=== PATIENT | female | born 1940 | race Caucasian/White ===

== ENCOUNTER 2019-07-12 05:31 | Emergency (ER) | payer MEDICARE, SELFPAY ==
[2019-07-12] VITALS (19 sets, daily range): BP systolic 154–190; BP diastolic 43–118; PULSE 100–113; RESP 13–25; TEMP 36.9; O2SAT 91–100
--- NOTE | ~2019-07-12 | XR_ITS ---
XR chest 1V portable DATE: 07/12/2019 06:54 INDICATION: Cough, shortness of breath TECHNIQUE: Portable upright AP chest on 07/12/2019 at 0648 hours COMPARISON: 10/28/2018 portable AP chest FINDINGS: Normal heart size. Aortic calcification and minimal unfolding. No hilar or mediastinal enla rgement. No pulmonary infiltrate or consolidation is evident. No pleural effusion, pulmonary vascular congesti on or pneumothorax. Severe osteoarthritic change at both glenohumeral joints. Diffuse osteopenia. Posterior lumbar spinal surgical fusion. IMPRESSION: No active cardiac pulmonary disease or significant change since 10/28/2018 Reviewed, dictated and finalized at location A. IMPRESSION: No active cardiac pulmonary disease or significant change since 10/01
--- NOTE | 2019-07-12 05:33 | ECG_ITS ---
Measurements Intervals [place] Rate: 102 P: 78 NM: 181 QRS: 35 QRSD: 90 T: 56 QT: 307 QTc: 401 Interpretive Statements SINUS TACHYCARDIA NONSPECIFIC T-WAVE ABNORMALITY- INF/LAT LEADS BASELINE ARTIFACT- I, II, AVR, V1 BORDERLINE ECG Electronically Signed On 07-12-2019 7:04:06 CDT by Moiz Melton D.O.
--- NOTE | 2019-07-12 05:34 | ED.GENADULT ---
HPI - General Adult General Chief complaint: Shortness of Breath/Dyspnea <Lucy Wilhelm MD - Last Filed: 07/12/19 19:21> Stated complaint: sob <Lucy Wilhelm MD - Last Filed: 07/12/19 19:21> Time Seen by Provider: 07/12/19 05:32 <Lucy Wilhelm MD - Last Filed: 07/12/19 19:21> Source: patient and EMS <Lucy Wilhelm MD - Last Filed: 07/12/19 19:21> Mode of arrival: EMS <Lucy Wilhelm MD - Last Filed: 07/12/19 19:21> Limitations: clinical condition <Lucy Wilhelm MD - Last Filed: 07/12/19 19:21> History of Present Illness HPI narrative: Patient presented to the emergency department via EMS for evaluation of shortness of breath. Per EMS report, they were called to the patient's home residence by her for increasing shortness of breath over the course of the evening/overnight. At the time of arrival, patient is in respiratory distress, oxygen saturation 71% on her normal 2 L nasal cannula, tachypneic, tripod position. Patient was placed on BiPAP in route, IV access could not be obtained, thus patient was given intramuscular epinephrine due to her respiratory distress. Patient at that point in time did report chest pain to 1 of the paramedics. At the time of arrival to our facility, the patient is awake, alert and oriented. She is on the BiPAP machine, she denies any chest pain, reports shortness of breath. Denies fever or chills. History is limited due to acuity of condition/ severe respiratory distress. <Lucy Wilhelm MD - Last Filed: 07/12/19 19:21> Related Data Home medications: Home Medications Medication Instructions Recorded Confirmed albuterol sulfate 2.5 mg/0.5 mL 2.5 mg INHALATION Q20M 03/16/19 solution for nebulization albuterol sulfate 90 mcg/actuation 1 inhalation INHALATION Q6H gm 03/16/19 aerosol inhaler celecoxib 100 mg capsule 100 mg PO DAILY 03/16/19 cholecalciferol (vitamin D3) 125 5,000 unit PO DAILY 03/16/19 mcg (5,000 unit) tablet docusate sodium 100 mg capsule 100 mg PO BID 03/16/19 famotidine 10 mg tablet 10 mg PO DAILY 03/16/19 fexofenadine 60 mg-pseudoephedrine 1 tablet PO Q12H PRN 03/16/19 ER 120 mg tablet,ext.release,12 hr loperamide 2 mg capsule 2 mg PO Q4H PRN 03/16/19 oxycodone-acetaminophen 10 mg-325 tablet PO QID PRN tablet 03/16/19 mg tablet triamterene 37.5 1 cap PO DAILY 03/16/19 mg-hydrochlorothiazide 25 mg capsule vit C 250 mg-E 200 unit-zinc 40 1 tablet PO BID 03/16/19 mg-copper 1 ww-enzpvl-myjhto capsule qsnqrbqmeq-izgwmhbnjsehu-pgkfwbnd 1 tablet PO Q4-6H PRN 05/22/19 50 mg-325 mg-40 mg tablet Spiriva with HandiHaler 07/12/19 bismuth subsalicylate 07/12/19 [Pepto-Bismol] budesonide-formoterol [Symbicort] 2 puff INHALATION Q12H 07/12/19 celecoxib 100 mg PO BID 07/12/19 fexofenadine-pseudoephedrine tablet PO 07/12/19 [Marzena-D 12 Hour] magnesium hydroxide [Milk of 15 ml PO BID 07/12/19 Magnesia] sodium chloride [[place] Nasal] INTRANASAL 07/12/19 vit C,P-Sg-qcddz-lutein-zeaxan 1 tablet PO BID 07/12/19 [PreserVision AREDS-2] <Lucy Wilhelm MD - Last Filed: 07/12/19 19:21> Allergies/adverse reactions: Allergies Allergy/AdvReac Type Severity Reaction Status Date / Time Sulfa (Sulfonamide Allergy Unknown Unknown Verified 07/12/19 06:18 Antibiotics) <Lucy Wilhelm MD - Last Filed: 07/12/19 19:21> Review of Systems Review of Systems: Narrative: CONSTITUTIONAL: Denies fever, chills, or sweats. CARDIOVASCULAR: Denies chest pain currently, palpitations, or edema. RESPIRATORY: Reports cough and shortness of breath GASTROINTESTINAL: Denies abdominal pain, nausea, vomiting, or diarrhea. SKIN: Denies rash or itching. MUSCULOSKELETAL: Denies back pain, joint pain, or myalgia. <Lucy Wilhelm MD - Last Filed: 07/12/19 19:21> [facility] Past Medical History Medical History: Medical History (Updated 07/12/19 @ 05:44 by Vandana
[2019-07-12 05:45] LABS: Basophils Absolute Auto 0.1 K/mm3 (0.0-0.1); Basophils Percent Auto 0.7 % (0.2-1.2); Eosinophils Absolute Auto 0.5 K/mm3 (0-0.3); Hematocrit 37.7 % (37.0-47.0); Hemoglobin 11.6 g/dL (12.0-15.0); Immature Granulocyte Absolute 0.03 K/mm3 (0.00-0.031); Immature Granulocyte Percent A 0.4 % (0-0.5); Lymphocytes Absolute Auto 1.58 K/mm3 (0.9-3.2); Lymphocytes Percent Auto 22.3 % (18.3-44.2); Mean Corpuscular HGB Conc 30.8 g/dl (32-36); Mean Corpuscular Hemoglobin 27.8 pg (26-34); Mean Corpuscular Volume 90.2 fl (80-100); Mean Platelet Volume 10.2 fl (7.4-10.4); Monocytes Absolute Auto 0.9 K/mm3 (0.1-0.6); Monocytes Percent Auto 12.5 % (2.6-8.5); Neutrophils Absolute Auto 4.1 K/mm3 (1.3-6.7); Neutrophils Percent Auto 57.1 % (45.5-73.1); Platelet Count Result 211 k/mm3 (150-375); Red Blood Count 4.18 M/mm3 (4.2-5.4); Red Cell Distribution Width 13.2 % (11.5-14.5); White Blood Count 7.1 K/mm3 (4.5-10.0)
[2019-07-12] MEDS: SODIUM CHLORIDE 0.9% IV 500 ML 999 ML IV CONT (05:46)
[2019-07-12] MEDS: methylPREDNISolone SOD SUCC 125 MG VIAL IV PUSH (05:47)
[2019-07-12] MEDS: IPRATROPIUM BR 0.02% INH SOLN 0.5 MG/2.5 ML VIAL 2 MG INHALATION (05:58)
[2019-07-12] MEDS: ALBUTEROL SULFATE NEB 2.5 MG/0.5 ML INH 20 MG INHALATION (05:58)
--- NOTE | 2019-07-12 06:05 | PC.NURSE ---
Patient taken off BiPAP at this time and placed on nebulizer treatment. Patient tolerating treatment well. 100% O2 saturations.
[2019-07-12] MEDS: MAGNESIUM SULF 2 GM/WATER 50ML 2 GM/50 ML BAG IVPB (06:06)
[2019-07-12 06:09] LABS: Prothrombin Time 12.5 Seconds (11.1-14.7)
[2019-07-12 06:10] LABS: Partial Thromboplastin Time 28.8 SECONDS (22.3-36.8)
[2019-07-12 06:15] LABS: Blood Urea Nitrogen 22 mg/dL (7-17); Carbon Dioxide 35 mmol/L (22-30); Chloride 94 mmol/L (98-107); Estimated CRCL calculation 66 ml/min; Estimated Glomerular Filt Rate > 60; Glucose 168 mg/dL (65-105); Potassium 3.8 mmol/L (3.4-5.0); Sodium 133 mmol/L (137-145)
[2019-07-12 06:27] LABS: NT Pro B Type Natriuretic Pept 375 PG/ML (5-100); Troponin I < 0.012 ng/mL (0.000-0.034)
--- NOTE | 2019-07-12 07:03 | PC.NURSE ---
Patient on baseline 3L O2 via nasal cannula at this time. O2 saturations 96%.
--- NOTE | 2019-07-12 07:12 | PC.NURSE ---
Care assumed at this time, report given by BECKY No.
[2019-07-12 08:55] LABS: Alveolar/Arterial O2 Gradient 102.3 mmHg; Base Excess ABG 3.7 mEq/l (+/-2.0); Fractional Inspired Oxygen 34 %; Oxygen Content ABG 18.4 %vol (16.0-22.0); Oxygen Saturation ABG 95.5 % (95.0-100.0); Oxyhemoglobin 94.5 % THb (90.0-100.0); PCO2 ABG 51.7 mmHg (35.0-45.0); PO2 ABG 79.9 mmHg (80.0-100.0); PO2 FiO2 Ratio Arterial Blood 2.35 %; Total Hemoglobin 13.8 g/dL (12.0-18.0); pH ABG 7.381 (7.350-7.450)
[2019-07-12 08:56] LABS: Device NASAL CANNULA; Liters per Minute 3.5 LPM; Modified Allen's Test Pass; Site Drawn RIGHT RADIAL
--- NOTE | 2019-07-12 09:51 | PC.NURSE ---
Patient taken to the bathroom via wheelchair by this RN and tech. Pt remained on 3L NC O2, saturations maintained at 91%. Pt states that she feels very weak and is tired. This RN told patient that EDP discharged patient, patient states that she cannot go home, she is too tired and is working too hard to breath. EDP and charge was notified.
== END 2019-07-12 11:01 | disposition home or self-care (01) ==
PROVIDERS: Emergency Medicine; Emergency Provider Emergency Medicine; PCP Internal Medicine
DX: J44.1 Chronic obstructive pulmonary disease with (acute) exacerbation (principal); R73.03 Prediabetes; Z99.81 Dependence on supplemental oxygen; I10 Essential (primary) hypertension; Z87.891 Personal history of nicotine dependence; E55.9 Vitamin D deficiency, unspecified; R00.0 Tachycardia, unspecified; R94.31 Abnormal electrocardiogram [ECG] [EKG]
CPT/HCPCS: 36415; 36600; 71045; 80048; 82805; 83880; 84484; 85025; 85610; 85730; 87804; 93005; 94002; 96365; 96375; 99284; J2930; J3475; J7040

== ENCOUNTER 2019-08-08 08:42 | Inpatient (IN) | payer MEDICARE, SELFPAY ==
[2019-08-08] VITALS (15 sets, daily range): BP systolic 146–180; BP diastolic 83–92; PULSE 96–109; RESP 16–24; TEMP 36.6–36.8; O2SAT 97–100; BMI 39.7
--- NOTE | ~2019-08-08 | XR_ITS ---
EXAMINATION: XR chest 1V portable EXAM DATE: 08/08/2019 09:37 INDICATION: Shortness of breath. TECHNIQUE: Portable AP frontal chest x-ray was obtained. Comparison is made to prior examination from 07/12/2019. FINDINGS: The lungs are clear. There are no pleural effusions. Cardiac silhouette is prominent but magnified on this AP technique. There is no pneumothorax suspected. There is moderate bilateral gle nohumeral primary osteoarthritis. Patient receiving breathing treatment. There is lumbar fusion hardw are. There is no significant interval change. IMPRESSION: No acute cardiopulmonary findings. Reviewed, dictated and finalized at location B.
--- NOTE | ~2019-08-08 | US_ITS ---
EXAMINATION: US retroperitoneal duplex ltd DATE: 08/09/2019 10:03 INDICATION: Abdominal bruit. TECHNIQUE: Multiple grayscale, color Doppler, and pulsed Doppler images of the kidneys and renal obey river were obtained. COMPARISON: Chest CT 08/19/2017 FINDINGS: The aorta peak systolic velocity is 119 cm/s. The right renal artery peak systolic velocity is 48 cm/ s in the proximal segment, 36 cm/s in the mid segment, and 54 cm/s in the distal segment. The left re nal artery peak systolic velocity is 56 cm/s in the proximal segment, 63 cm/s in the mid segment, and 71 cm/s in the distal segment. IMPRESSION: 1. No Doppler evidence of renal artery stenosis. Note that the chest CT from 08/19/2017 similarly dem onstrates no significant renal artery stenosis. Reviewed, dictated and finalized at location A. IMPRESSION: 1. No Doppler evidence of renal artery stenosis. Note that the chest CT from similarly demonstrates no significant renal artery stenosis.
--- NOTE | 2019-08-08 08:32 | ED.SOB ---
HPI - SOB/Dyspnea General Chief Complaint: Shortness of Breath/Dyspnea Stated Complaint: sob Time Seen by Provider: 08/08/19 08:32 Source: patient, EMS and RN notes reviewed Mode of arrival: EMS Limitations: no limitations History of Present Illness HPI Narrative: Pt is a 79 y/o female with a Hx of COPD, who presents to the ED via EMS with c/o SOB starting last night. She notes that she is currently on 3 L of home O2, but states that she has been on 4 L for the past several days. Pt notes that she started feeling more SOB last night. EMS states that her O2 saturation was in the 80's upon their arrival this morning. They note that they placed the pt on a CPAP and administered a nebulizer treatment while in route to the ED. EMS reports that the pt was wheezing while in route to the ED. Pt currently denies any cough, fever, or chills. She is not currently taking any blood thinners. MD elicited complaint: shortness of breath Pertinent past history: COPD Onset (ago): day(s) (1) Known history of: COPD Associated symptoms: wheezing (per EMS) Treatment prior to arrival: oxygen Related Data Home Medications Medication Instructions Recorded Confirmed albuterol sulfate 2.5 mg/0.5 mL 2.5 mg INHALATION Q20M 03/16/19 solution for nebulization celecoxib 100 mg capsule 100 mg PO DAILY 03/16/19 cholecalciferol (vitamin D3) 125 5,000 unit PO DAILY 03/16/19 mcg (5,000 unit) tablet docusate sodium 100 mg capsule 100 mg PO BID 03/16/19 famotidine 10 mg tablet 10 mg PO DAILY 03/16/19 fexofenadine 60 mg-pseudoephedrine 1 tablet PO Q12H PRN 03/16/19 ER 120 mg tablet,ext.release,12 hr loperamide 2 mg capsule 2 mg PO Q4H PRN 03/16/19 oxycodone-acetaminophen 10 mg-325 tablet PO QID PRN tablet 03/16/19 mg tablet triamterene 37.5 1 cap PO DAILY 03/16/19 mg-hydrochlorothiazide 25 mg capsule vit C 250 mg-E 200 unit-zinc 40 1 tablet PO BID 03/16/19 mg-copper 1 fk-ulusxm-iihvjz capsule bcujdpqrhg-epgmifklgqqeh-jzkzlbyw 1 tablet PO Q4-6H PRN 05/22/19 50 mg-325 mg-40 mg tablet Spiriva with HandiHaler 07/12/19 bismuth subsalicylate 07/12/19 [Pepto-Bismol] budesonide-formoterol [Symbicort] 2 puff INHALATION Q12H 07/12/19 celecoxib 100 mg PO BID 07/12/19 fexofenadine-pseudoephedrine tablet PO 07/12/19 [Marzena-D 12 Hour] magnesium hydroxide [Milk of 15 ml PO BID 07/12/19 Magnesia] sodium chloride [[place] Nasal] INTRANASAL 07/12/19 vit C,R-Ad-rbkvl-lutein-zeaxan 1 tablet PO BID 07/12/19 [PreserVision AREDS-2] Allergies Allergy/AdvReac Type Severity Reaction Status Date / Time Sulfa (Sulfonamide Allergy Unknown Unknown Verified 07/12/19 06:18 Antibiotics) Review of Systems Review of Systems: All systems reviewed & are unremarkable except as noted in HPI and below Constitutional: Constitutional: Denies chills and Denies fever(s) Respiratory: Respiratory: Denies cough, Reports dyspnea and Reports wheezing (per EMS) PMFSH Past Medical History Medical History Arthritis Back pain Bilateral lower extremity edema Borderline diabetic Cataracts, bilateral Chronic hypoxemic respiratory failure Chronic obstructive pulmonary disease, unspecified Chronic pain of both shoulders Chronic pain of left knee Dependence on supplemental oxygen Essential (primary) hypertension GERD (gastroesophageal reflux disease) History of angina History of tobacco abuse Insomnia Nonintractable headache Pain in right shoulder Sleep apnea SOB (shortness of breath) Thyroid nodule Ulcerative colitis Venous stasis dermatitis of both lower extremities Vitamin D deficiency Surgical History Surgical History History of right knee surgery Hx of arthroscopy of left knee Hx of spinal surgery Hx of tonsillectomy Social History Social History Smoking status: Former smoker Tobacc
--- NOTE | 2019-08-08 08:42 | ECG_ITS ---
Measurements Intervals [place] Rate: 101 P: 96 [place]: 171 QRS: 36 QRSD: 89 T: 51 QT: 315 QTc: 410 Interpretive Statements SINUS TACHYCARDIA BORDERLINE T WAVE ABNORMALITY- LATERAL LEADS BASELINE ARTIFACT- I, II, III, AVR, AVL, AVF, V4-V6 BORDERLINE ECG Electronically Signed On 08-08-2019 9:00:00 CDT by Moiz Melton D.O.
[2019-08-08] MEDS: methylPREDNISolone SOD SUCC 125 MG VIAL IV PUSH (08:55)
[2019-08-08 09:05] LABS: Basophils Absolute Auto 0.1 K/mm3 (0.0-0.1); Basophils Percent Auto 0.9 % (0.2-1.2); Eosinophils Absolute Auto 0.5 K/mm3 (0-0.3); Eosinophils Percent Auto 8.6 % (0-4.4); Hematocrit 36.4 % (37.0-47.0); Immature Granulocyte Absolute 0.01 K/mm3 (0.00-0.031); Immature Granulocyte Percent A 0.2 % (0-0.5); Lymphocytes Absolute Auto 0.81 K/mm3 (0.9-3.2); Lymphocytes Percent Auto 14.5 % (18.3-44.2); Mean Corpuscular HGB Conc 30.2 g/dl (32-36); Mean Corpuscular Hemoglobin 27.4 pg (26-34); Mean Corpuscular Volume 90.8 fl (80-100); Mean Platelet Volume 10.1 fl (7.4-10.4); Monocytes Absolute Auto 0.7 K/mm3 (0.1-0.6); Monocytes Percent Auto 12.3 % (2.6-8.5); Neutrophils Absolute Auto 3.6 K/mm3 (1.3-6.7); Neutrophils Percent Auto 63.5 % (45.5-73.1); Platelet Count Result 221 k/mm3 (150-375); Red Blood Count 4.01 M/mm3 (4.2-5.4); Red Cell Distribution Width 13.4 % (11.5-14.5); White Blood Count 5.6 K/mm3 (4.5-10.0)
[2019-08-08 09:05] LABS: Alveolar/Arterial O2 Gradient 101.2 mmHg; Base Excess ABG 7.3 mEq/l (+/-2.0); Fractional Inspired Oxygen 36 %; HCO3 ABG 34.8 mEq/l (22.0-26.0); Oxygen Content ABG 15.9 %vol (16.0-22.0); Oxyhemoglobin 93.8 % THb (90.0-100.0); PO2 ABG 80.7 mmHg (80.0-100.0); PO2 FiO2 Ratio Arterial Blood 2.24 %
[2019-08-08 09:08] LABS: Device HIGH FLOW NASAL CANN; Modified Allen's Test Pass; PCO2 ABG 64.5 mmHg (35.0-45.0); Site Drawn LEFT RADIAL
[2019-08-08 09:11] LABS: Prothrombin Time 12.5 Seconds (11.1-14.7)
[2019-08-08 09:12] LABS: Partial Thromboplastin Time 26.9 SECONDS (22.3-36.8)
[2019-08-08 09:13] LABS: Alanine Aminotransferase 13 U/L (4-35); Albumin Level 3.9 g/dL (3.5-5.1); Alkaline Phosphatase 79 U/L (38-126); Aspartate Amino Transferase 23 U/L (14-36); Bilirubin,Total 0.3 mg/dL (0.2-1.3); Blood Urea Nitrogen 21 mg/dL (7-17); Carbon Dioxide 36 mmol/L (22-30); Chloride 94 mmol/L (98-107); Estimated CRCL calculation 69 ml/min; Estimated Glomerular Filt Rate > 60; Glucose 135 mg/dL (65-105); Potassium 4.1 mmol/L (3.4-5.0); Sodium 133 mmol/L (137-145)
[2019-08-08] MEDS: IPRATROPIUM BR 0.02% INH SOLN 0.5 MG/2.5 ML VIAL INHALATION ×3 (09:20→19:36)
[2019-08-08] MEDS: ALBUTEROL SULFATE NEB 2.5 MG/0.5 ML INH 5 MG INHALATION ×3 (09:21→19:35)
[2019-08-08 09:53] LABS: NT Pro B Type Natriuretic Pept 410 PG/ML (5-100)
[2019-08-08 10:37] LABS: Troponin I < 0.012 ng/mL (0.000-0.034)
--- NOTE | 2019-08-08 11:45 | ADMGEN ---
This patient, Belinda Black, was admitted to Medical Room 347-01. Patient/family oriented to hospital policies and general routines including ID bracelet, bed and alarms, visiting hours, pain management, procedures, bathroom and other care routines, personal items, smoking policy, room service/diet, and visiting hours. Valuables list has been completed. Information on how to activate the Rapid Response Team has been discussed. Patient/Family are encouraged to report perceived risks to care and to ask questions if they do not understand what they are told or what they should do.
[2019-08-08] MEDS: methylPREDNISolone SOD SUCC 125 MG VIAL 60 MG IV PUSH ×2 (15:30→20:13)
[2019-08-08] MEDS: ACETAMINOPHEN 325 MG TABLET 650 MG PO (17:12)
[2019-08-08 18:01] LABS: Alveolar/Arterial O2 Gradient 102.9 mmHg; Base Excess ABG 6.3 mEq/l (+/-2.0); Carboxyhemoglobin 0.3 % THb (0-2.0); Fractional Inspired Oxygen 36 %; HCO3 ABG 32.9 mEq/l (22.0-26.0); Methemoglobin ABG 0.5 %THb (0-1.5); Oxygen Content ABG 17.6 %vol (16.0-22.0); Oxygen Saturation ABG 97.2 % (95.0-100.0); Oxyhemoglobin 96.4 % THb (90.0-100.0); PCO2 ABG 56.1 mmHg (35.0-45.0); PO2 ABG 98.2 mmHg (80.0-100.0); PO2 FiO2 Ratio Arterial Blood 2.73 %; Reduced Hemoglobin 2.8 %THb (0-5.0); Total Hemoglobin 12.9 g/dL (12.0-18.0); pH ABG 7.386 (7.350-7.450)
[2019-08-08 18:02] LABS: Device NASAL CANNULA; Modified Allen's Test Pass; Site Drawn RIGHT RADIAL
[2019-08-08] MEDS: CELECOXIB 100 MG CAPSULE PO (18:19)
[2019-08-08] MEDS: DICYCLOMINE HCL 10 MG CAPSULE 20 MG PO (18:22)
[2019-08-08] MEDS: SALINE 0.65% NAS SOLN 44 ML BTL 2 SPRAY NASAL (21:17)
--- NOTE | 2019-08-08 22:00 | PM.IMHP ---
H&P: HPI History of Present Illness Chief complaint: Shortness of breath Narrative: Date and time of patient contact: 08/08/2019 at 10:00 p.m. Belinda Black is a 79 year old female with a past medical history of diastolic dysfunction, chronic lower extremity edema, obstructive sleep apnea, chronic pain and COPD who presented to the ER with shortness of breath. She told the ER that the shortness of breath started last night. However she tells me that she has had progressive shortness of breath for the last 3 months. The patient's oxygen saturations were in the 80s on EMS arrival to her home. She was placed on CPAP in given nebulizer treatment in route. Patient was evidently having audible wheezes and in route to the hospital. She her home oxygen it isn't working at times. She reports her shortness of breath is worse with activity. Her has been trying to get her to sleep in a chair so that she could be upright but she does not. She she does have a history of obstructive sleep apnea but admits that she has not used her CPAP in at least a year. She regularly falls asleep multiple times a day. But this is been happening more so recently. She also has noticed episodes of confusion over the last 3 days. She reports that she will become so short of breath that she will have to scream out because she can't breathe. She has a chronic mild cough that has not changed from baseline. She denies any fevers or chills. She complained for several minutes when her arrived to her room about how hot it was. She denies any recent ill contacts or travel. She has not been having any nausea or vomiting. She has been having her usual regular stools. She was told sometime back that her bladder has fallen. She admits to about 3 weeks of increased urinary urgency however when she goes to use the restroom she will sometimes only dribble urine. He had other times the patient will empty her bladder and then when she stands up and wipes she will then sit back down in be able to empty more urine out of her bladder. She denies any hematuria or dysuria. She denies any sore throat, postnasal drip kind headache, or visual changes. She denies any increased lower extremity swelling. Review of Systems Review of Systems: Narrative: 12 systems were reviewed with pertinent positives and negatives per HPI. Except as documented in the HPI, all other systems were reviewed and are negative. [facility] Past Medical History Medical History (Updated 08/08/19 @ 23:06 by Airam Crow DO) Aortic stenosis Mild on echocardiogram from October 2018 Borderline diabetic Cataracts, bilateral Maturing cataracts bilaterally Chronic diastolic (congestive) heart failure Echocardiogram October 2018 demonstrated normal left ventricular systolic function with EF of 65-70% grade 1 diastolic dysfunction mild aortic stenosis with a normal RVSP of 34 Chronic pain syndrome With chronic back, bilateral shoulder, and left knee pain Chronic respiratory failure with hypoxia and hypercapnia COPD with emphysema Dependence on supplemental oxygen Essential (primary) hypertension Fractured coccyx GERD (gastroesophageal reflux disease) History of angina History of tobacco abuse Insomnia Liver mass 21 mm likely benign noted on imaging for 2018 Obstructive sleep apnea on CPAP Non compliant Thyroid nodule On CT scan from July 2017 Ulcerative colitis Venous stasis dermatitis of both lower extremities Vitamin D deficiency Surgical History Surgical History (Updated 08/08/19 @ 20:50 by Airam Crow DO) History of total right knee replacement January 2012 History of ventral hernia repair With abdominoplasty Hx of arthroscopy of left knee 2000 Hx of spinal surgery Lumbar surgery 2001 Hx of tonsillectomy Family History Family History (Updated 08/08/19 @ 20:51 by Airam Crow DO) Mother Diabetes mellitus Father COPD (chronic obstructive pulmonary disease) [place]
[2019-08-08] MEDS: TRIAMTERENE 37.5 MG/HCTZ 25 MG (MAXZIDE) TABLET 1 TAB PO (23:07)
[2019-08-08 23:35] LABS: Glucose Point of Care 176 (65-105)
[2019-08-09] VITALS (12 sets, daily range): BP systolic 160–174; BP diastolic 80–97; PULSE 100–120; RESP 16–20; TEMP 36.4–37.2; O2SAT 92–99
[2019-08-09 00:28] LABS: Add Urine Microscopic? YES; Appearance Urine Clear (Clear); Bacteria Urine Trace /hpf; Bilirubin Urine Negative (Negative); Blood Urine Negative (Negative); Color Urine Colorless (Yellow); Glucose Urine UA Negative (Negative); Ketones Urine Negative (Negative); Leukocyte Esterase Ur Negative LEU/UL (Negative); Nitrate Urine Negative (Negative); Protein Urine 1+ mg/dL (Negative); Squamous Epithelial Cell Urine Rare /hpf (Few); Urobilinogen Urine Negative mg/dL (<2.0); WBC Urine 0-3 /hpf
[2019-08-09] MEDS: ALBUTEROL SULFATE NEB 2.5 MG/0.5 ML INH 5 MG INHALATION ×4 (01:27→21:05)
[2019-08-09] MEDS: IPRATROPIUM BR 0.02% INH SOLN 0.5 MG/2.5 ML VIAL INHALATION ×4 (01:27→21:05)
[2019-08-09] MEDS: methylPREDNISolone SOD SUCC 125 MG VIAL 60 MG IV PUSH ×3 (05:05→21:30)
[2019-08-09 07:44] LABS: Glucose Point of Care 149 (65-105)
[2019-08-09] MEDS: CHOLECALCIFEROL 1,000 UNIT TABLET 5000 UNITS PO (08:52)
[2019-08-09] MEDS: TRIAMTERENE 37.5 MG/HCTZ 25 MG (MAXZIDE) TABLET 1 TAB PO (08:52)
[2019-08-09] MEDS: DICYCLOMINE HCL 10 MG CAPSULE 20 MG PO (08:52)
[2019-08-09] MEDS: CELECOXIB 100 MG CAPSULE PO ×2 (08:52→17:38)
[2019-08-09] MEDS: FUROSEMIDE 20 MG TABLET PO (08:52)
[2019-08-09] MEDS: ENOXAPARIN 40 MG/0.4 ML SYRINGE SUB-Q (08:53)
[2019-08-09] MEDS: FAMOTIDINE 10 MG TABLET PO (08:53)
[2019-08-09 09:33] LABS: Basophils Percent Auto 0.1 % (0.2-1.2); Hematocrit 36.7 % (37.0-47.0); Hemoglobin 11.8 g/dL (12.0-15.0); Immature Granulocyte Absolute 0.04 K/mm3 (0.00-0.031); Immature Granulocyte Percent A 0.6 % (0-0.5); Lymphocytes Absolute Auto 0.36 K/mm3 (0.9-3.2); Lymphocytes Percent Auto 5.3 % (18.3-44.2); Mean Corpuscular HGB Conc 32.2 g/dl (32-36); Mean Corpuscular Hemoglobin 28.3 pg (26-34); Mean Platelet Volume 10.3 fl (7.4-10.4); Monocytes Absolute Auto 0.3 K/mm3 (0.1-0.6); Monocytes Percent Auto 3.8 % (2.6-8.5); Neutrophils Absolute Auto 6.2 K/mm3 (1.3-6.7); Neutrophils Percent Auto 90.2 % (45.5-73.1); Platelet Count Result 268 k/mm3 (150-375); Red Blood Count 4.17 M/mm3 (4.2-5.4); Red Cell Distribution Width 13.5 % (11.5-14.5); White Blood Count 6.8 K/mm3 (4.5-10.0)
[2019-08-09 09:53] LABS: Blood Urea Nitrogen 17 mg/dL (7-17); Calcium 9.2 mg/dL (8.4-10.2); Carbon Dioxide 33 mmol/L (22-30); Chloride 92 mmol/L (98-107); Estimated CRCL calculation 94 ml/min; Estimated Glomerular Filt Rate > 60; Glucose 254 mg/dL (65-105); Potassium 4.6 mmol/L (3.4-5.0); Sodium 130 mmol/L (137-145)
[2019-08-09 11:18] LABS: Glucose Point of Care 182 (65-105)
--- NOTE | 2019-08-09 15:57 | PM.IMPN ---
Progress Note: A&P Assessment and Plan (1) Acute and chronic respiratory failure, unspecified whether with hypoxia or hypercapnia: Code(s): J96.20 - Acute and chronic respiratory failure, unspecified whether with hypoxia or hypercapnia Status: Acute Assessment and Plan: Due to underlying COPD exacerbation. The patient's hypercapnia has return to around her baseline. Continue steroids and nebulizers. When the patient oxygen as tolerated down to 3 L nasal cannula which is the patient's home oxygen requirement. Last echo 11/17 EF 65% with grade 1 diastolic dysfunction and bnp only 410 (2) Acute exacerbation of chronic obstructive airways disease: Code(s): J44.1 - Chronic obstructive pulmonary disease with (acute) exacerbation Status: Acute Assessment and Plan: Continue IV Solu-Medrol 60 mg but will change frequency to q.12 hours. Continue albuterol and Atrovent nebulizers No obvious underlying infection will hold off on antibiotic therapy. (3) Obstructive sleep apnea: Code(s): G47.33 - Obstructive sleep apnea (adult) (pediatric) Status: Acute Assessment and Plan: The patient has been noncompliant with the CPAP therapy. The importance of Pap therapy in supporting her lungs and heart was discussed with the patient. I encouraged her to have an outpatient repeat sleep study. She would likely benefit from BiPAP therapy at this point. (4) Chronic pain syndrome: Code(s): G89.4 - Chronic pain syndrome Status: Acute Assessment and Plan: Will decrease oxycodone only 5 mg with CO2 retention to decrease chances of respiratory depression (5) Abdominal bruit: Code(s): R09.89 - Other specified symptoms and signs involving the circulatory and respiratory systems Status: Acute Assessment and Plan: Renal Doppler today negative no evidence of renal artery stenosis Subjective Date/time seen: 08/09/19 15:58 Interval history: Date of visit 08/08. 79-year-old white female COPD admitted with increasing cough and shortness of breath. Chest x-ray no infiltrate. No fever chills or productive cough. Did have a recent upper respiratory congestion. Feels slightly better this a.m. after updrafts and steroids Exam Narrative: Exam Narrative: PHYSICAL EXAM: Blood pressure 160/90 pulse is 100 saturating 9% on 3 L nasal cannula afebrile WEIGHT 92.4 kg BMI 39.8 General: Obese, elderly, no acute distress HEENT: no scleral icterus, no conjunctival pallor Neck: large neck circumference, no JVD Respiratory: Decreased breath sounds bilaterally, no wheeze Cardiovascular: Normal S1-S2, sinus tachycardia, 2+ radial and pedal pulses bilaterally Gastrointestinal: Obese, normoactive bowel sounds, Skin: Chronic venous stasis changes with chronic erythema to anterior shins bilaterally actually improved from previous with peeling skin circumferentially from the lower extremities Extremities: Trace pedal edema, chronic venous stasis changes, postoperative changes noted to the right knee, Neurological: Alert and oriented, speech is clear and fluent, no obvious cranial nerve deficits on limited exam Psychiatric: Pleasant and cooperative, normal mood somewhat dramatic Objective Data Vital Signs Vital Signs: Vital Signs - 24 hr 08/08/19 19:27 08/08/19 19:36 08/08/19 19:40 Temperature 36.6 C Pulse Rate 105 H 107 H Respiratory Rate 16 20 Blood Pressure 180/90 H Pulse Oximetry 98 97 08/08/19 19:44 08/09/19 01:28 08/09/19 01:34 Temperature Pulse Rate 108 H 102 H 104 H Respiratory Rate 20 20 20 Blood Pressure Pulse Oximetry 08/09/19 04:49 08/09/19 07:58 08/09/19 08:08 Temperature 37.2 C Pulse Rate 104 H 120 H 116 H Respiratory Rate 16 20 20 Blood Pressure 160/80 H Pulse Oximetry 94 08/09/19 08:20 08/09/19 14:00 08/09/19 15:31 Temperature 36.4 C L Pulse Rate 102 H 100 Respiratory Rate 16 20 Blood Pressure 167
[2019-08-09 16:28] LABS: Glucose Point of Care 137 (65-105)
[2019-08-09 21:42] LABS: Glucose Point of Care 159 (65-105)
[2019-08-10] VITALS (10 sets, daily range): BP systolic 153–168; BP diastolic 82–85; PULSE 79–103; RESP 18–20; TEMP 36.4–36.6; O2SAT 95–99
[2019-08-10] MEDS: ALBUTEROL SULFATE NEB 2.5 MG/0.5 ML INH 5 MG INHALATION ×4 (01:05→19:55)
[2019-08-10] MEDS: IPRATROPIUM BR 0.02% INH SOLN 0.5 MG/2.5 ML VIAL INHALATION ×4 (01:06→19:56)
[2019-08-10] MEDS: DICYCLOMINE HCL 10 MG CAPSULE 20 MG PO ×2 (08:02→17:49)
[2019-08-10] MEDS: CELECOXIB 100 MG CAPSULE PO ×2 (08:02→17:48)
[2019-08-10] MEDS: FAMOTIDINE 10 MG TABLET PO (08:02)
[2019-08-10] MEDS: CHOLECALCIFEROL 1,000 UNIT TABLET 5000 UNITS PO (08:02)
[2019-08-10] MEDS: FUROSEMIDE 20 MG TABLET PO (08:03)
[2019-08-10] MEDS: methylPREDNISolone SOD SUCC 125 MG VIAL 60 MG IV PUSH ×2 (08:03→21:59)
[2019-08-10] MEDS: ENOXAPARIN 40 MG/0.4 ML SYRINGE SUB-Q (08:03)
[2019-08-10] MEDS: TRIAMTERENE 37.5 MG/HCTZ 25 MG (MAXZIDE) TABLET 1 TAB PO (08:03)
[2019-08-10 08:16] LABS: Glucose Point of Care 131 (65-105)
[2019-08-10 08:20] LABS: Hemoglobin A1C 5.5 % (<5.7)
[2019-08-10 11:45] LABS: Glucose Point of Care 143 (65-105)
--- NOTE | 2019-08-10 14:40 | PM.IMPN ---
Progress Note: A&P Assessment and Plan (1) Acute and chronic respiratory failure, unspecified whether with hypoxia or hypercapnia: Code(s): J96.20 - Acute and chronic respiratory failure, unspecified whether with hypoxia or hypercapnia Status: Acute Assessment and Plan: Due to underlying COPD exacerbation. The patient's hypercapnia has return to around her baseline. Continue steroids and nebulizers. When the patient oxygen as tolerated down to 3 L nasal cannula which is the patient's home oxygen requirement. Last echo 11/17 EF 65% with grade 1 diastolic dysfunction and bnp only 410 (2) Acute exacerbation of chronic obstructive airways disease: Code(s): J44.1 - Chronic obstructive pulmonary disease with (acute) exacerbation Status: Acute Assessment and Plan: Continue IV Solu-Medrol 60 mg but will change frequency to q.12 hours.probable po 08/10 Continue albuterol and Atrovent nebulizers No obvious underlying infection will hold off on antibiotic therapy. (3) Obstructive sleep apnea: Code(s): G47.33 - Obstructive sleep apnea (adult) (pediatric) Status: Acute Assessment and Plan: The patient has been noncompliant with the CPAP therapy. The importance of Pap therapy in supporting her lungs and heart was discussed with the patient. She was encouraged to have an outpatient repeat sleep study. She would likely benefit from BiPAP therapy at this point. (4) Chronic pain syndrome: Code(s): G89.4 - Chronic pain syndrome Status: Acute Assessment and Plan: Will decrease oxycodone only 5 mg with CO2 retention to decrease chances of respiratory depression at q4 prn (5) Abdominal bruit: Code(s): R09.89 - Other specified symptoms and signs involving the circulatory and respiratory systems Status: Acute Assessment and Plan: Renal Doppler today negative no evidence of renal artery stenosis Subjective Date/time seen: 08/10/19 14:40 Interval history: Date of visit 08/09. 79-year-old white female COPD admitted with increasing cough and shortness of breath. Chest x-ray no infiltrate. No fever chills or productive cough. Did have a recent upper respiratory congestion. Feels slightly better this a.m. after updrafts and steroids but chronic pain worse Exam Narrative: Exam Narrative: PHYSICAL EXAM: Blood pressure 168/82 pulse is 100 saturating 99% on 4 L nasal cannula afebrile WEIGHT 92.4 kg BMI 39.8 General: Obese, elderly, no acute distress HEENT: no scleral icterus Neck: large neck circumference, no JVD Respiratory: Decreased breath sounds bilaterally, no wheeze Cardiovascular: Normal S1-S2, sinus tachycardia, 2+ radial and pedal pulses bilaterally Gastrointestinal: Obese, normoactive bowel sounds, Skin: Chronic venous stasis changes with chronic erythema to anterior shins bilaterally actually improved from previous with peeling skin circumferentially from the lower extremities Extremities: Trace pedal edema, chronic venous stasis changes, postoperative changes noted to the right knee, Neurological: Alert and oriented, speech is clear and fluent, no obvious cranial nerve deficits on limited exam Psychiatric: Pleasant and cooperative, normal mood somewhat dramatic Objective Data Vital Signs Vital Signs: Vital Signs - 24 hr 08/09/19 15:31 08/09/19 15:40 08/09/19 21:05 Temperature Pulse Rate 100 104 H 102 H Respiratory Rate 20 20 20 Blood Pressure Pulse Oximetry 08/09/19 21:14 08/09/19 21:43 08/10/19 01:05 Temperature 36.9 C Pulse Rate 100 101 H 99 Respiratory Rate 20 20 20 Blood Pressure 174/97 H Pulse Oximetry 94 98 08/10/19 01:15 08/10/19 01:25 08/10/19 08:45 Temperature Pulse Rate 99 79 Respiratory Rate 20 18 20 Blood Pressure Pulse Oximetry 95 08/10/19 08:55 08/10/19 13:58 08/10/19 14:00 Temperature 36.4 C Pulse Rate 82 86 103 H Respiratory Rate 20 20 20 Blood Pressure
[2019-08-10 16:51] LABS: Glucose Point of Care 157 (65-105)
[2019-08-10 22:28] LABS: Glucose Point of Care 121 (65-105)
[2019-08-11] VITALS (13 sets, daily range): BP systolic 139–152; BP diastolic 93–97; PULSE 79–105; RESP 16–24; TEMP 36.6–36.8; O2SAT 95–99
[2019-08-11] MEDS: IPRATROPIUM BR 0.02% INH SOLN 0.5 MG/2.5 ML VIAL INHALATION ×4 (01:15→19:50)
[2019-08-11] MEDS: ALBUTEROL SULFATE NEB 2.5 MG/0.5 ML INH 5 MG INHALATION ×4 (01:24→19:50)
[2019-08-11 06:59] LABS: Blood Urea Nitrogen 35 mg/dL (7-17); Calcium 9.2 mg/dL (8.4-10.2); Carbon Dioxide > 40 mmol/L (22-30); Chloride 87 mmol/L (98-107); Estimated CRCL calculation 66 ml/min; Estimated Glomerular Filt Rate > 60; Glucose 158 mg/dL (65-105); Potassium 4.6 mmol/L (3.4-5.0); Sodium 130 mmol/L (137-145)
[2019-08-11 08:01] LABS: Glucose Point of Care 135 (65-105)
[2019-08-11] MEDS: polyethylene glycoL 3350 17 GM POWD.PACK PO (08:33)
[2019-08-11] MEDS: DICYCLOMINE HCL 10 MG CAPSULE 20 MG PO ×2 (08:33→16:55)
[2019-08-11] MEDS: CHOLECALCIFEROL 1,000 UNIT TABLET 5000 UNITS PO (08:33)
[2019-08-11] MEDS: ENOXAPARIN 40 MG/0.4 ML SYRINGE SUB-Q (08:33)
[2019-08-11] MEDS: methylPREDNISolone SOD SUCC 125 MG VIAL 60 MG IV PUSH (08:34)
[2019-08-11] MEDS: TRIAMTERENE 37.5 MG/HCTZ 25 MG (MAXZIDE) TABLET 1 TAB PO (08:34)
[2019-08-11] MEDS: CELECOXIB 100 MG CAPSULE PO ×2 (08:34→16:55)
[2019-08-11] MEDS: FAMOTIDINE 10 MG TABLET PO (08:34)
[2019-08-11 11:27] LABS: Glucose Point of Care 169 (65-105)
--- NOTE | 2019-08-11 15:02 | PM.IMPN ---
Progress Note: A&P Assessment and Plan (1) Acute and chronic respiratory failure, unspecified whether with hypoxia or hypercapnia: Code(s): J96.20 - Acute and chronic respiratory failure, unspecified whether with hypoxia or hypercapnia Status: Acute Assessment and Plan: Due to underlying COPD exacerbation. The patient's hypercapnia has return to around her baseline. Continue steroids and nebulizers.and taper to po steroids When the patient oxygen as tolerated down to 3 L nasal cannula which is the patient's home oxygen requirement. Last echo 11/17 EF 65% with grade 1 diastolic dysfunction and bnp only 410 (2) Acute exacerbation of chronic obstructive airways disease: Code(s): J44.1 - Chronic obstructive pulmonary disease with (acute) exacerbation Status: Acute Assessment and Plan: Continue steroids but as above change.to po this pm Continue albuterol and Atrovent nebulizers No obvious underlying infection will hold off on antibiotic therapy. (3) Obstructive sleep apnea: Code(s): G47.33 - Obstructive sleep apnea (adult) (pediatric) Status: Acute Assessment and Plan: The patient has been noncompliant with the CPAP therapy. The importance of Pap therapy in supporting her lungs and heart was discussed with the patient. She was encouraged to have an outpatient repeat sleep study. She would likely benefit from BiPAP therapy at this point. (4) Chronic pain syndrome: Code(s): G89.4 - Chronic pain syndrome Status: Acute Assessment and Plan: Will decrease oxycodone only 5 mg with CO2 retention to decrease chances of respiratory depression at q4 prn (5) Abdominal bruit: Code(s): R09.89 - Other specified symptoms and signs involving the circulatory and respiratory systems Status: Acute Assessment and Plan: Renal Doppler today negative no evidence of renal artery stenosis Subjective Date/time seen: 08/11/19 15:02 Interval history: Date of visit 08/10. 79-year-old white female COPD admitted with increasing cough and shortness of breath. Chest x-ray no infiltrate. No fever chills or productive cough. Did have a recent upper respiratory congestion. Feels slightly better this a.m. after updrafts and steroids and urinating frequently Exam Narrative: Exam Narrative: PHYSICAL EXAM: Blood pressure 152/86pulse is 96 saturating 95% on 4 L nasal cannula afebrile WEIGHT 92.4 kg BMI 39.8 General: Obese, elderly, no acute distress HEENT: no scleral icterus Neck: large neck circumference, no JVD Respiratory: Decreased breath sounds bilaterally, no wheeze, moving air better today Cardiovascular: Normal S1-S2, sinus tachycardia, 2+ radial and pedal pulses bilaterally Gastrointestinal: Obese, normoactive bowel sounds, Skin: Chronic venous stasis changes with chronic erythema to anterior shins bilaterally actually improved from previous with peeling skin circumferentially from the lower extremities Extremities: Trace pedal edema, chronic venous stasis changes, postoperative changes noted to the right knee, Neurological: Alert and oriented, speech is clear and fluent, no focal deficits Psychiatric: Pleasant and cooperative, normal mood somewhat dramatic Objective Data Vital Signs Vital Signs: Vital Signs - 24 hr 08/10/19 19:55 08/10/19 20:05 08/10/19 21:59 Temperature 36.6 C Pulse Rate 82 84 98 Respiratory Rate 20 20 20 Blood Pressure 153/85 H Pulse Oximetry 99 08/11/19 01:15 08/11/19 01:26 08/11/19 05:28 Temperature 36.8 C Pulse Rate 79 82 96 Respiratory Rate 20 20 16 Blood Pressure 152/97 H Pulse Oximetry 97 08/11/19 08:03 08/11/19 08:14 08/11/19 08:34 Temperature Pulse Rate 101 H 105 H Respiratory Rate 24 H 22 H 22 H Blood Pressure Pulse Oximetry 95 95 08/11/19 14:00 08/11/19 14:16 08/11/19 14:28 Temperature 36.8 C Pulse Rate 101 H 98 96 Respiratory Rate 22 H 22 H 22 H Bloo
[2019-08-11 16:30] LABS: Glucose Point of Care 143 (65-105)
[2019-08-11] MEDS: predniSONE 20 MG, predniSONE 10 MG 30 MG PO (16:56)
[2019-08-11 22:07] LABS: Glucose Point of Care 139 (65-105)
[2019-08-12 01:20] VITALS: PULSE 93; RESP 20
[2019-08-12] MEDS: ALBUTEROL SULFATE NEB 2.5 MG/0.5 ML INH 5 MG INHALATION ×2 (01:20→08:38)
[2019-08-12] MEDS: IPRATROPIUM BR 0.02% INH SOLN 0.5 MG/2.5 ML VIAL INHALATION ×2 (01:20→08:39)
[2019-08-12 01:30] VITALS: PULSE 94; RESP 20
[2019-08-12 05:17] VITALS: BP 154/71; PULSE 88; RESP 18; TEMP 36.5; O2SAT 100
[2019-08-12 07:58] LABS: Glucose Point of Care 109 (65-105)
[2019-08-12 08:39] VITALS: PULSE 83; RESP 18; O2SAT 99
[2019-08-12 08:51] VITALS: PULSE 86; RESP 18
[2019-08-12] MEDS: CHOLECALCIFEROL 1,000 UNIT TABLET 5000 UNITS PO (09:18)
[2019-08-12] MEDS: FUROSEMIDE 20 MG TABLET PO (09:19)
[2019-08-12] MEDS: predniSONE 20 MG, predniSONE 10 MG 30 MG PO (09:19)
[2019-08-12] MEDS: DICYCLOMINE HCL 10 MG CAPSULE 20 MG PO (09:19)
[2019-08-12] MEDS: CELECOXIB 100 MG CAPSULE PO (09:19)
[2019-08-12] MEDS: ENOXAPARIN 40 MG/0.4 ML SYRINGE SUB-Q (09:19)
[2019-08-12] MEDS: FAMOTIDINE 10 MG TABLET PO (09:19)
[2019-08-12] MEDS: polyethylene glycoL 3350 17 GM POWD.PACK PO (09:19)
[2019-08-12] MEDS: TRIAMTERENE 37.5 MG/HCTZ 25 MG (MAXZIDE) TABLET 1 TAB PO (09:20)
[2019-08-12 11:47] LABS: Glucose Point of Care 120 (65-105)
--- NOTE | 2019-08-12 17:53 | PM.DS ---
DS: Diagnosis Admitting Diagnosis Admitting Diagnosis: Acute and chronic respiratory failure, unspecified whether with hypoxia or hypercapnia Discharge Diagnosis (1) Acute and chronic respiratory failure, unspecified whether with hypoxia or hypercapnia: Code(s): J96.20 - Acute and chronic respiratory failure, unspecified whether with hypoxia or hypercapnia Status: Acute Assessment and Plan: Due to underlying COPD exacerbation. The patient's hypercapnia has return to around her baseline. Continue steroids with home taper and nebulizers patient oxygen down to 3 L nasal cannula which is the patient's home oxygen requirement. Last echo 11/17 EF 65% with grade 1 diastolic dysfunction and bnp only 410 (2) Acute exacerbation of chronic obstructive airways disease: Code(s): J44.1 - Chronic obstructive pulmonary disease with (acute) exacerbation Status: Acute Assessment and Plan: Continued steroids but as above change.to po 08/10 and will taper short course at home Continue albuterol and Atrovent nebulizers No obvious underlying infection so on antibiotic therapy. (3) Obstructive sleep apnea: Code(s): G47.33 - Obstructive sleep apnea (adult) (pediatric) Status: Acute Assessment and Plan: The patient has been noncompliant with the CPAP therapy. The importance of Pap therapy in supporting her lungs and heart was discussed with the patient. She was encouraged to have an outpatient repeat sleep study. She would likely benefit from BiPAP therapy at this point. (4) Chronic pain syndrome: Code(s): G89.4 - Chronic pain syndrome Status: Acute Assessment and Plan: Will decrease oxycodone only 5 mg with CO2 retention to decrease chances of respiratory depression at q4 prn and will resume her usual dose of Oxy code in 10 Q i.d. p.r.n. at home (5) Abdominal bruit: Code(s): R09.89 - Other specified symptoms and signs involving the circulatory and respiratory systems Status: Acute Assessment and Plan: Renal Doppler negative, no evidence of renal artery stenosis DS: Summary Hospital Course Hospital Course: 79-year-old white female with COPD admitted with acute on chronic respiratory failure secondary to COPD exacerbation. BNP only 400 and no evidence of failure. She responded to parental steroids and updraft treatments and continue to improve with O2 sat at 99% on her usual 3 L by discharge. She will have a short course tapering steroids over the next 5 days and follow-up with her primary within the next 2 weeks. No change in her usual medication regime Time Spent with Patient Time attestation: Total time spent providing and/or coordinating discharge services: 35 minutes Exam Narrative: Exam Narrative: Condition on discharge Blood pressure 154/70 pulse is 86 saturating 99% on 3 L nasal cannula with respirations 16 per minute Lungs clear with distant breath sounds prolonged expiratory phase but no wheezing CV regular rate rhythm Abdomen is soft nontender Extremities without edema distal pulses are 2+ Neuro alert cooperative no focal deficits DS: Data Data Completed and Pending Labs on day of discharge: Labs from last 24 hours 08/12/19 08/12/19 08/11/19 11:44 07:54 20:56 POC Capillary Glucose 120 H 109 139 H Preliminary micro results at discharge 08/08/19 08:59 Blood Culture - Preliminary Blood 08/08/19 08:57 Blood Culture - Preliminary Blood Discharge Plan Discharge Attending physician on discharge: Mehul Massey Discharging Clinician: Mehul Massey Patient Disposition: Home, Self-Care Activity: as tolerated Diet: low sodium Patient Instructions: Antibiotic Form, Methylprednisolone (By injection), COPD (Chronic Obstructive Pulmonary Disease) (DC), Acute Respiratory Failure (GEN) Stand Alone Forms: General Discharge Information Follow-up/Referrals: Wing Cesar, [Pr
== END 2019-08-12 13:45 | disposition home or self-care (01) | DRG 190 ==
LOC: ANHED 10:42 → ANH3MED 11:16
PROVIDERS: Internal Medicine; Physician Assistant; Admitting Provider Hospitalist; Emergency Provider Emergency Medicine; PCP Internal Medicine; Visit Provider Internal Medicine
DX: J44.1 Chronic obstructive pulmonary disease with (acute) exacerbation (principal); J96.21 Acute and chronic respiratory failure with hypoxia; I50.32 Chronic diastolic (congestive) heart failure; G47.33 Obstructive sleep apnea (adult) (pediatric); G89.4 Chronic pain syndrome; R09.89 Other specified symptoms and signs involving the circulatory and respiratory systems; M19.90 Unspecified osteoarthritis, unspecified site; K21.9 Gastro-esophageal reflux disease without esophagitis; I87.2 Venous insufficiency (chronic) (peripheral); E04.1 Nontoxic single thyroid nodule; E55.9 Vitamin D deficiency, unspecified; R73.03 Prediabetes; Z96.651 Presence of right artificial knee joint; E66.9 Obesity, unspecified; Z68.39 Body mass index [BMI] 39.0-39.9, adult; Z99.81 Dependence on supplemental oxygen; Z87.891 Personal history of nicotine dependence; Z91.19 Patient's noncompliance with other medical treatment and regimen
CPT/HCPCS: 36415; 36600; 71045; 80048; 80053; 81001; 82375; 82805; 83036; 83050; 83880; 84484; 85025; 85610; 85730; 87040; 93005; 93976; 94640; 96374; 97110; 97116; 97161; 97165; 97530; 99291; A9270; J1650; J2930; J7512

== ENCOUNTER 2019-09-05 06:56 | Inpatient (IN) | payer MEDICARE, SELFPAY ==
[2019-09-05] VITALS (29 sets, daily range): BP systolic 146–197; BP diastolic 66–107; PULSE 97–119; RESP 18–26; TEMP 36.2–37.3; O2SAT 89–100; BMI 39.7
--- NOTE | ~2019-09-05 | XR_ITS ---
EXAMINATION: XR chest 1V portable DATE: 09/05/2019 07:42 INDICATION: Shortness of breath and COPD exacerbation. TECHNIQUE: frontal view of the chest was obtained. COMPARISON: Chest radiograph dated 08/08/2019 FINDINGS: The lungs remain clear with no focal airspace opacities, pulmonary edema, pleural effusion or pneumot horax. The cardiomediastinal silhouette is normal. Severe bilateral glenohumeral osteoarthritis. IMPRESSION: 1. No acute cardiopulmonary disease. Reviewed, dictated and finalized at location A.
--- NOTE | ~2019-09-05 | US_ITS ---
EXAMINATION: US venous doppler [facility] DATE: 09/11/2019 11:46 INDICATION: Lower limb pain. TECHNIQUE: Grayscale ultrasound images without and with compression and Doppler ultrasound images of the bilateral lower extremity veins were obtained. COMPARISON: Ultrasound 10/28/2018 FINDINGS: The visualized portions of right common femoral vein, profunda (deep) femoral vein, femoral vein, pop liteal vein, peroneal veins, posterior tibial veins, and greater saphenous vein outflow are patent. The visualized portions of left common femoral vein, profunda femoral vein, femoral vein, popliteal v ein, peroneal veins, posterior tibial veins, and greater saphenous vein outflow are patent. IMPRESSION: 1. No deep venous thrombosis. Reviewed, dictated and finalized at location A.
--- NOTE | ~2019-09-05 | XR_ITS ---
EXAMINATION: XR chest 1V portable INDICATION: Shortness of breath TECHNIQUE: Portable AP chest at 0903 hours COMPARISON: 09/05/2019 FINDINGS: The lungs are free of acute opacities. There is no pleural effusion or pneumothorax. The ca rdiomediastinal silhouette is normal. There is partially imaged lumbar fusion hardware. Severe bilate ral glenohumeral osteoarthritis is again noted. IMPRESSION: 1. No acute cardiopulmonary abnormality. Reviewed, dictated and finalized at location A.
--- NOTE | 2019-09-05 06:56 | ECG_ITS ---
Measurements Intervals [place] Rate: 102 P: 121 NM: 144 QRS: 35 QRSD: 94 T: 130 QT: 299 QTc: 391 Interpretive Statements SINUS OR ECTOPIC ATRIAL TACHYCARDIA FREQUENT VENTRICULAR PREMATURE COMPLEXES DELAYED PRECORDIAL R/S TRANSITION LOW QRS VOLTAGE IN LIMB LEADS BORDERLINE ST-T WAVE ABNORMALITY- LATERAL LEADS BASELINE WANDER- I, II, AVF, V1-V3 ABNORMAL ECG Electronically Signed On 09-05-2019 10:32:06 CDT by Moiz Melton D.O.
--- NOTE | 2019-09-05 07:10 | PC.NURSE ---
care assumed from Lotus ley. resp at bedside to draw abgs.
--- NOTE | 2019-09-05 07:15 | ED.SOB ---
HPI - SOB/Dyspnea General Chief Complaint: Shortness of Breath/Dyspnea Stated Complaint: SOB Time Seen by Provider: 09/05/19 07:06 History of Present Illness HPI Narrative: Patient is a 79-year-old female who presents the ER with increased shortness of breath. Worsening over the last 4 days. Has been using albuterol with minimal improvement. Has history of COPD and is recently been hospitalized and required BiPAP. No history of CHF. She has a chronic O2 requirement of 2L NC. Related Data Home Medications Medication Instructions Recorded Confirmed albuterol sulfate 2.5 mg/0.5 mL 2.5 mg INHALATION Q20M 03/16/19 08/08/19 solution for nebulization celecoxib 100 mg capsule 100 mg PO DAILY 03/16/19 08/08/19 cholecalciferol (vitamin D3) 125 5,000 unit PO DAILY 03/16/19 08/08/19 mcg (5,000 unit) tablet docusate sodium 100 mg capsule 100 mg PO BID PRN 03/16/19 08/08/19 famotidine 10 mg tablet 10 mg PO DAILY 03/16/19 08/08/19 fexofenadine 60 mg-pseudoephedrine 1 tablet PO Q12H PRN 03/16/19 08/08/19 ER 120 mg tablet,ext.release,12 hr oxycodone-acetaminophen 10 mg-325 10 tablet PO QID PRN tablet 03/16/19 08/08/19 mg tablet triamterene 37.5 1 cap PO DAILY 03/16/19 08/08/19 mg-hydrochlorothiazide 25 mg capsule Pepto-Bismol 2 tablet PO MONTHLY PRN 07/12/19 08/08/19 PreserVision AREDS-2 1 tablet PO BID 07/12/19 08/08/19 budesonide-formoterol [Symbicort] 2 puff INHALATION Q12H 07/12/19 08/08/19 sodium chloride [[place] Nasal] 2 spray INTRANASAL PRN 07/12/19 08/08/19 Allergies Allergy/AdvReac Type Severity Reaction Status Date / Time Sulfa (Sulfonamide Allergy Unknown Unknown Verified 07/12/19 06:18 Antibiotics) Review of Systems Review of Systems: All systems reviewed & are unremarkable except as noted in HPI and below Constitutional: Constitutional: Denies chills, Denies fever(s) and Denies weakness ENT: Denies nasal congestion and Denies sore throat Cardiovascular: Cardiovascular: Reports chest pain (tightness c/o COPD flare) Respiratory: Respiratory: Reports cough, Reports dyspnea and Reports wheezing Comments: Increased O2 requirement Gastrointestinal: Gastrointestinal: Denies abdominal pain, Denies nausea and Denies vomiting Genitourinary: Genitourinary: Reports nocturia and Reports dysuria [facility] Past Medical History Medical History (Updated 09/05/19 @ 10:10 by Caleb Ling MD) Aortic stenosis Mild on echocardiogram from October 2018 Borderline diabetic Cataracts, bilateral Maturing cataracts bilaterally Chronic diastolic (congestive) heart failure Echocardiogram October 2018 demonstrated normal left ventricular systolic function with EF of 65-70% grade 1 diastolic dysfunction mild aortic stenosis with a normal RVSP of 34 Chronic pain syndrome With chronic back, bilateral shoulder, and left knee pain Chronic respiratory failure with hypoxia and hypercapnia COPD with emphysema Dependence on supplemental oxygen Essential (primary) hypertension Fractured coccyx GERD (gastroesophageal reflux disease) History of angina History of tobacco abuse Insomnia Liver mass 21 mm likely benign noted on imaging for 2018 Obstructive sleep apnea on CPAP Non compliant Thyroid nodule On CT scan from July 2017 Ulcerative colitis Venous stasis dermatitis of both lower extremities Vitamin D deficiency Surgical History Surgical History (Updated 08/08/19 @ 20:50 by Airam Crow DO) History of total right knee replacement January 2012 History of ventral hernia repair With abdominoplasty Hx of arthroscopy of left knee 2000 Hx of spinal surgery Lumbar surgery 2001 Hx of tonsillectomy Family History Family History (Updated 08/08/19 @ 20:51 by Airam Crow DO) Mother Diabetes mellitus Father COPD (chronic obstructive pulmonary disease) Sibling Lung disease Brother Social History Social History (Updated 08/08/19 @ 20:54 by Airam Crow DO) Social History: Rosa
[2019-09-05 07:17] LABS: Basophils Absolute Auto 0.1 K/mm3 (0.0-0.1); Eosinophils Absolute Auto 1.3 K/mm3 (0-0.3); Eosinophils Percent Auto 16.4 % (0-4.4); Hematocrit 36.9 % (37.0-47.0); Hemoglobin 11.3 g/dL (12.0-15.0); Immature Granulocyte Absolute 0.04 K/mm3 (0.00-0.031); Immature Granulocyte Percent A 0.5 % (0-0.5); Lymphocytes Absolute Auto 0.88 K/mm3 (0.9-3.2); Lymphocytes Percent Auto 10.9 % (18.3-44.2); Mean Corpuscular HGB Conc 30.6 g/dl (32-36); Mean Corpuscular Hemoglobin 27.9 pg (26-34); Mean Corpuscular Volume 91.1 fl (80-100); Mean Platelet Volume 9.4 fl (7.4-10.4); Monocytes Absolute Auto 0.9 K/mm3 (0.1-0.6); Monocytes Percent Auto 11.1 % (2.6-8.5); Neutrophils Absolute Auto 4.8 K/mm3 (1.3-6.7); Neutrophils Percent Auto 60.1 % (45.5-73.1); Platelet Count Result 337 k/mm3 (150-375); Red Blood Count 4.05 M/mm3 (4.2-5.4); Red Cell Distribution Width 13.2 % (11.5-14.5); White Blood Count 8.1 K/mm3 (4.5-10.0)
[2019-09-05] MEDS: ALBUTEROL SULFATE NEB 2.5 MG/0.5 ML INH 20 MG INHALATION (07:20)
[2019-09-05] MEDS: IPRATROPIUM BR 0.02% INH SOLN 0.5 MG/2.5 ML VIAL 2 MG INHALATION (07:20)
[2019-09-05 07:27] LABS: Alveolar/Arterial O2 Gradient 120.5 mmHg; Base Excess ABG 6.1 mEq/l (+/-2.0); Carboxyhemoglobin 0.3 % THb (0-2.0); Fractional Inspired Oxygen 40 %; HCO3 ABG 32.7 mEq/l (22.0-26.0); Methemoglobin ABG 0.3 %THb (0-1.5); Oxygen Content ABG 16.4 %vol (16.0-22.0); Oxygen Saturation ABG 97.3 % (95.0-100.0); Oxyhemoglobin 96.4 % THb (90.0-100.0); PO2 ABG 99.2 mmHg (80.0-100.0); PO2 FiO2 Ratio Arterial Blood 2.48 %; pH ABG 7.377 (7.350-7.450)
[2019-09-05] MEDS: MAGNESIUM SULF 2 GM/WATER 50ML 2 GM/50 ML BAG IVPB (07:28)
[2019-09-05] MEDS: SODIUM CHLORIDE 0.9% IV 500 ML 999 ML IV CONT (07:28)
[2019-09-05] MEDS: methylPREDNISolone SOD SUCC 125 MG VIAL IV PUSH (07:28)
[2019-09-05 07:30] LABS: Modified Allen's Test Pass; Site Drawn RIGHT RADIAL
[2019-09-05 07:31] LABS: Device NASAL CANNULA
[2019-09-05 07:31] LABS: Blood Urea Nitrogen 19 mg/dL (7-17); Calcium 9.4 mg/dL (8.4-10.2); Carbon Dioxide > 40 mmol/L (22-30); Chloride 91 mmol/L (98-107); Estimated CRCL calculation 81 ml/min; Estimated Glomerular Filt Rate > 60; Glucose 144 mg/dL (65-105); Potassium 4.2 mmol/L (3.4-5.0); Sodium 134 mmol/L (137-145)
--- NOTE | 2019-09-05 08:35 | PC.NURSE ---
called lab to add on trop1
[2019-09-05 08:54] LABS: Troponin I 0.019 ng/mL (0.000-0.034)
--- NOTE | 2019-09-05 10:57 | PC.NURSE ---
pts [facility] can be contacted at [phone]
[2019-09-05] MEDS: IPRATROPIUM BR 0.02% INH SOLN 0.5 MG/2.5 ML VIAL INHALATION ×2 (14:11→20:04)
[2019-09-05] MEDS: ALBUTEROL SULFATE NEB 2.5 MG/0.5 ML INH 5 MG INHALATION ×2 (14:11→20:04)
[2019-09-05] MEDS: methylPREDNISolone SOD SUCC 125 MG VIAL 60 MG IV PUSH ×3 (14:31→23:41)
[2019-09-05] MEDS: MORPHINE SULFATE 4 MG/ML INJ IV PUSH (17:47)
[2019-09-06] VITALS (19 sets, daily range): BP systolic 147–194; BP diastolic 67–86; PULSE 99–113; RESP 20–28; TEMP 36.2–36.7; O2SAT 92–98
[2019-09-06] MEDS: IPRATROPIUM BR 0.02% INH SOLN 0.5 MG/2.5 ML VIAL INHALATION ×4 (02:10→20:33)
[2019-09-06] MEDS: ALBUTEROL SULFATE NEB 2.5 MG/0.5 ML INH 5 MG INHALATION ×4 (02:10→20:32)
--- NOTE | 2019-09-06 02:39 | PM.IMHP ---
H&P: HPI History of Present Illness Chief complaint: increased shortness of breath Narrative: Date and time of patient contact: 09/05/2019 at 10:40 p.m. Belinda Black is a 79 year old female with a past medical history of COPD with chronic hypoxic hypercarbic respiratory failure, and obstructive sleep apnea noncompliant with PAP therapy who presented to the ER with increasing shortness of breath. The patient reports that she has had increasing shortness of breath and has been sleeping poorly due to her shortness of breath. She states that she sleeps better if she sleeps in a recliner at home. This is been an ongoing issue for couple of years. However she does not 1 asleep in her recliner home all the time. The patient was admitted in August 2019 for similar symptoms and improved with BiPAP therapy. However patient states that she does not want to use of BiPAP as she does not like it. He states that it makes her anxious and more short of breath. She has been using her nebulizers and inhalers intermittently with little improvement in her symptoms. She is recently finished steroid taper. She states that the nebulizer treatment she has received since coming to the hospital have not really helped all that much. Has had increased cough for the past 36 hours. She denies any significant sputum production. She has not had any fevers or chills. She denies any recent ill contacts. She reports chest discomfort with ambulation just because she cannot catch her breath. She has been having some stress urinary incontinence due to her coughing. She denies any dysuria or hematuria. She has had decreased appetite but denies any loss of taste or smell. She reports that she has been having normal bowel movements. She does report pain on palpation of her feet but this is not unusual for her and is unchanged from baseline. She has not noticed any increased lower extremity swelling. She denies having any orthopnea and sleeps laying flat in bed with a couple of pillows. She reports that she does not sleep well at night but will usually get up in the morning and take her medications. She will then go in the living room and sit in her recliner in sleep for 4 or 5 hours. She reports that she does not sleep in the recliner in the living room because she does not want to sleep alone. Review of Systems Review of Systems: Narrative: 12 systems were reviewed with pertinent positives and negatives per HPI. Except as documented in the HPI, all other systems were reviewed and are negative. [facility] Past Medical History Medical History (Updated 09/06/19 @ 02:45 by Airam Crow DO) Abdominal bruit renal US negative for stenosis Aortic stenosis Mild on echocardiogram from October 2018 Borderline diabetic Cataracts, bilateral Maturing cataracts bilaterally Chronic diastolic (congestive) heart failure Echocardiogram October 2018 demonstrated normal left ventricular systolic function with EF of 65-70% grade 1 diastolic dysfunction mild aortic stenosis with a normal RVSP of 34 Chronic pain syndrome With chronic back, bilateral shoulder, and left knee pain Chronic respiratory failure with hypoxia and hypercapnia COPD with emphysema Dependence on supplemental oxygen Essential (primary) hypertension Fractured coccyx GERD (gastroesophageal reflux disease) History of angina History of tobacco abuse Insomnia Liver mass 21 mm likely benign noted on imaging for 2018 Obstructive sleep apnea on CPAP Non compliant Thyroid nodule On CT scan from July 2017 Ulcerative colitis Venous stasis dermatitis of both lower extremities Vitamin D deficiency Surgical History Surgical History (Updated 08/08/19 @ 20:50 by Airam Crow DO) History of total right knee replacement January 2012 History of ventral hernia repair With abdominoplasty Hx of arthroscopy of left knee 2000 Hx of spinal surgery Lumbar surgery 2001 Hx of tonsillectomy Family Hist
[2019-09-06] MEDS: methylPREDNISolone SOD SUCC 125 MG VIAL 60 MG IV PUSH ×4 (05:56→23:13)
[2019-09-06] MEDS: CELECOXIB 100 MG CAPSULE PO (09:54)
[2019-09-06] MEDS: CHOLECALCIFEROL 1,000 UNIT TABLET 5000 UNITS PO (09:54)
[2019-09-06] MEDS: DICYCLOMINE HCL 10 MG CAPSULE 20 MG PO ×2 (09:55→16:29)
[2019-09-06] MEDS: FUROSEMIDE 20 MG TABLET PO (09:56)
[2019-09-06] MEDS: FAMOTIDINE 10 MG TABLET PO (09:56)
[2019-09-06] MEDS: OPTI-GEN TAB 1 TABLET PO ×2 (09:57→16:30)
[2019-09-06] MEDS: ENOXAPARIN 40 MG/0.4 ML SYRINGE SUB-Q (10:02)
--- NOTE | 2019-09-06 12:59 | PM.IMPN ---
Progress Note: A&P Assessment and Plan (1) Acute exacerbation of chronic obstructive airways disease: Code(s): J44.1 - Chronic obstructive pulmonary disease with (acute) exacerbation Status: Acute Assessment and Plan: Patient presents again with worsening shortness of breath. Recently hospitalized in July for same. Patient adamantly declines PAP therapy, suspect her recurrent symptoms are secondary to non adherance. She describes following with a cager operator for over 10 years in [place], but since he has retired she has not seen a cager operator in quite some time. Tells me she has been using 4L O2 at home but sometimes 3L. Dr Macedo has been consulted - appreciate recommendations. For now I will continue IV solu-medrol, home symbicort, and bronchodilator therapy with duo nebs. Hold spiriva in light of duo neb. Will add pulmozyme and mucinex. (2) Acute and chronic respiratory failure, unspecified whether with hypoxia or hypercapnia: Qualifiers: Respiratory failure complication: hypoxia and hypercapnia Qualified Code(s): J96.21 - Acute and chronic respiratory failure with hypoxia; J96.22 - Acute and chronic respiratory failure with hypercapnia Code(s): J96.20 - Acute and chronic respiratory failure, unspecified whether with hypoxia or hypercapnia Status: Acute Assessment and Plan: Notes she has been using 4L O2 at home, sometimes 3L when she feels well. She is tolerating 4L today. CO2 on blood gas is near her baseline. (3) Obstructive sleep apnea: Code(s): G47.33 - Obstructive sleep apnea (adult) (pediatric) Status: Acute Assessment and Plan: Instructed that she needed outpatient sleep study at time of recent discharge from here, noncompliant with PAP therapy. (4) Chronic diastolic (congestive) heart failure: Code(s): I50.32 - Chronic diastolic (congestive) heart failure Status: Chronic Assessment and Plan: Chronic, diastolic. Appears well-compensated. Last echo October 2018 demonstrated normal left ventricular systolic function with EF of 65-70% grade 1 diastolic dysfunction. Subjective Date/time seen: 09/06/19 1215 Interval history: Ms. Black is a 79yo F admitted for COPD exacerbation. She reports she is still feeling quite short of breath today. She describes being in the hospital multiple times recently for same symptoms and continues to feel more short of breath with lesser and lesser activity. She tells me she will not wear CPAP at all. She denies chest pain. She is coughing, feels like she has phlegm to cough up but cannot get it out. She is tolerating oral intake without nausea, vomiting, or abdominal pain. Review of Systems Review of Systems: Narrative: Twelve systems were reviewed with pertinent positives and negatives as per HPI. Exam Narrative: Exam Narrative: General: Female resting in bed in no acute distress. HEENT: Normocephalic, EOMI, oral mucosa dry. Cardiovascular: Rate and rhythm are regular. Respiratory: Decreased breath sounds throughout. Slightly labored respiratory effort with pursed lip breathing. Tolerating 4L O2. Abdomen: Soft, non-tender, non-distended, bowel sounds present. Extremities: Peripheral pulses intact. No edema. Skin is dry and flaky. Neuro: No focal neurological deficits. Speech is clear. Objective Data Vital Signs Vital Signs: Last Vital Signs Temp 97.2 F L 09/06/19 06:00 Pulse 106 H 09/06/19 08:34 Resp 24 H 09/06/19 08:34 BP 147/67 H 09/06/19 06:00 Pulse Ox 92 09/06/19 08:27 Intake/Output Intake/Output: Intake & Output 09/03/19 09/04/19 09/05/19 09/06/19 23:59 23:59 23:59 23:59 Intake Total 1000 540 Output Total 600 400 Balance 400 140 Meds/Results Medications: Active Medications Generic Name Dose Route Start Last Admin Tra
--- NOTE | 2019-09-06 19:51 | PM.CNPUL ---
Assessment and Plan Assessment and plan (1) Obstructive sleep apnea: Code(s): G47.33 - Obstructive sleep apnea (adult) (pediatric) Status: Acute Assessment and Plan: Not on treatment. has device at home. Does not want to wear the device offered here. Says that her device at home is better than what she has here. (2) Acute and chronic respiratory failure, unspecified whether with hypoxia or hypercapnia: Qualifiers: Respiratory failure complication: hypoxia and hypercapnia Qualified Code(s): J96.21 - Acute and chronic respiratory failure with hypoxia; J96.22 - Acute and chronic respiratory failure with hypercapnia Code(s): J96.20 - Acute and chronic respiratory failure, unspecified whether with hypoxia or hypercapnia Status: Acute Assessment and Plan: Hypercapnic hypoxemia; will try to obtain records from Dr Starr, minimize the amount of O2 to limit CO2 retention, add Cornet valve for secretions, increase activity by providing a walker, and having her get out of bed and walk around the room and halls. She has no infiltrates on CXR. Will continue bronchodilators, wean steroids, decreasing O2 to keep saturation not over 94%. I suggested considering hospice, in the setting of not wanting to use PAP and titrating her O2 higher than needed as this worsens CO2 retention, which worsens her resp failure, memory, swelling, CHF. (3) Acute exacerbation of chronic obstructive airways disease: Code(s): J44.1 - Chronic obstructive pulmonary disease with (acute) exacerbation Status: Acute Assessment and Plan: (4) Non-compliant behavior: Code(s): R46.89 - Other symptoms and signs involving appearance and behavior Status: Acute Assessment and Plan: With increasing O2 at home and lack of compliance with PAP, she has worsening acute on chronic hypercapnic resp fialure. She is not interested in using PAP therpay. History of Present Illness History of Present Illness Consult date: 09/07/19 Requesting physician: Sarahi Hayden PA-C Reason for consult: COPD, obstructive sleep apnea and other (multiple admissions) Chief complaint: COPD Exacerbation Narrative: NEW: Belinda Black is a 79 yo female with chronic respiratory failure on home O2 for 10 years, COPD, history of smoking, none for 20 years. She was followed by Matty Fraser in [place] for years, now is not really seeing anyone about her pulmonary needs. She has a history of DANETTE, and has a device at home which she says she has never been able to use successfully. She bought it along with all the supplies, so has not had to have adequate compliance in order to keep her machine in her house. She says that recently, she has started having more shortness of breath, more coughing with discolored sputum, and turned her O2 up to 4 L/min. She also thought she would try to use the CPAP but could not get any benefit from it as she cannot tolerate the pressure. She owns the device, has no DME support, She says that she does not have a nebulizer at home, but albuterol solution is listed as one of her medications. She has poor memory, and was not able to follow her train of though in the 30 min I was with her. She asked for her luggage to get her nasal inhaler, then forgot what she was looking for. on 4 L/min, sat 95%. Review of Systems Constitutional: Constitutional: Denies chills Comments: no fever, chills, sore throat, no sick contacts. She has been sheltering in place before it became commonplace, now for several months. Eyes: Comments: Had cataract surgeries'; the left eye was never as good after surgery as it was before. Respiratory: Respiratory: Denies hemoptysi
[2019-09-06] MEDS: DORNASE ALFA INH SOLN 1 MG/ML 2.5 ML AMP 2.5 MG INHALATION (20:33)
[2019-09-07] VITALS (16 sets, daily range): BP systolic 146–155; BP diastolic 66–77; PULSE 89–104; RESP 18–24; TEMP 36.4–36.8; O2SAT 91–100
[2019-09-07] MEDS: IPRATROPIUM BR 0.02% INH SOLN 0.5 MG/2.5 ML VIAL INHALATION ×4 (01:32→19:11)
[2019-09-07] MEDS: ALBUTEROL SULFATE NEB 2.5 MG/0.5 ML INH 5 MG INHALATION ×4 (01:32→19:11)
--- NOTE | 2019-09-07 05:14 | PHAR ---
PT'S HOME MEDS VERIFIED BY PHARMACY SAMMIE (OXYMETAZOLINE 0.05%) 12 HOUR NASAL SPRAY VICKS VAPO INHALE STICK
[2019-09-07] MEDS: methylPREDNISolone SOD SUCC 40 MG VIAL IV PUSH ×3 (05:48→21:43)
[2019-09-07 06:02] LABS: Basophils Percent Auto 0.1 % (0.2-1.2); Hematocrit 34.6 % (37.0-47.0); Hemoglobin 10.8 g/dL (12.0-15.0); Immature Granulocyte Absolute 0.05 K/mm3 (0.00-0.031); Immature Granulocyte Percent A 0.6 % (0-0.5); Lymphocytes Absolute Auto 0.45 K/mm3 (0.9-3.2); Lymphocytes Percent Auto 5.1 % (18.3-44.2); Mean Corpuscular HGB Conc 31.2 g/dl (32-36); Mean Corpuscular Hemoglobin 27.6 pg (26-34); Mean Corpuscular Volume 88.5 fl (80-100); Mean Platelet Volume 9.4 fl (7.4-10.4); Monocytes Absolute Auto 0.3 K/mm3 (0.1-0.6); Monocytes Percent Auto 3.4 % (2.6-8.5); Neutrophils Absolute Auto 8.1 K/mm3 (1.3-6.7); Neutrophils Percent Auto 90.8 % (45.5-73.1); Platelet Count Result 378 k/mm3 (150-375); Red Blood Count 3.91 M/mm3 (4.2-5.4); Red Cell Distribution Width 13.2 % (11.5-14.5); White Blood Count 8.9 K/mm3 (4.5-10.0)
[2019-09-07] MEDS: DORNASE ALFA INH SOLN 1 MG/ML 2.5 ML AMP 2.5 MG INHALATION ×2 (09:30→19:11)
[2019-09-07] MEDS: DICYCLOMINE HCL 10 MG CAPSULE 20 MG PO ×2 (09:35→16:27)
[2019-09-07] MEDS: OPTI-GEN TAB 1 TABLET PO ×2 (09:37→16:27)
[2019-09-07] MEDS: CHOLECALCIFEROL 1,000 UNIT TABLET 5000 UNITS PO (09:38)
[2019-09-07] MEDS: CELECOXIB 100 MG CAPSULE PO (09:38)
[2019-09-07] MEDS: FAMOTIDINE 10 MG TABLET PO (09:38)
[2019-09-07] MEDS: ENOXAPARIN 40 MG/0.4 ML SYRINGE SUB-Q (09:39)
[2019-09-07] MEDS: FUROSEMIDE 20 MG TABLET PO (09:39)
--- NOTE | 2019-09-07 11:44 | PM.IMPN ---
Progress Note: A&P Assessment and Plan (1) Acute exacerbation of chronic obstructive airways disease: Code(s): J44.1 - Chronic obstructive pulmonary disease with (acute) exacerbation Status: Acute Assessment and Plan: Patient presents again with worsening shortness of breath. Recently hospitalized in July for same. Patient adamantly declines PAP therapy, suspect her recurrent symptoms are secondary to non adherence. She describes following with a wet mixer for over 10 years in [place], but since he has retired she has not seen a wet mixer in quite some time. Tells me she has been increasing her O2 at home on her own up to 4L Dr Macedo has been consulted - appreciate recommendations. Continue IV solu-medrol, home symbicort, and bronchodilator therapy with duo nebs. Hold spiriva in light of duo neb. Continue pulmozyme and mucinex, Cornet. Detailed discussion held with patient that she is nearing end-stage COPD and although we will treat her symptoms, it is possible she may not make great improvements and this may be her new normal . (2) Acute and chronic respiratory failure, unspecified whether with hypoxia or hypercapnia: Qualifiers: Respiratory failure complication: hypoxia and hypercapnia Qualified Code(s): J96.21 - Acute and chronic respiratory failure with hypoxia; J96.22 - Acute and chronic respiratory failure with hypercapnia Code(s): J96.20 - Acute and chronic respiratory failure, unspecified whether with hypoxia or hypercapnia Status: Acute Assessment and Plan: Worsening over the last few months. She is tolerating 4L today. CO2 on blood gas is near her baseline. (3) Obstructive sleep apnea: Code(s): G47.33 - Obstructive sleep apnea (adult) (pediatric) Status: Acute Assessment and Plan: Instructed that she needed outpatient sleep study at time of recent discharge from here, noncompliant with PAP therapy. (4) Chronic diastolic (congestive) heart failure: Code(s): I50.32 - Chronic diastolic (congestive) heart failure Status: Chronic Assessment and Plan: Chronic, diastolic. Appears well-compensated. Last echo October 2018 demonstrated normal left ventricular systolic function with EF of 65-70% grade 1 diastolic dysfunction. Subjective Date/time seen: 09/07/19 11:30 Interval history: Ms. Black is a 79yo F admitted for COPD exacerbation. She reports she is still feeling pretty short of breath with minimal exertion, just with trying to get up to use the bedside commode. She reports some chest wall tenderness from coughing improved by her pain medication. Still with significant coughing, feels like she has mucus to cough up but not able to get it out. Tolerated breakfast without nausea or vomiting. Review of Systems Review of Systems: Narrative: Twelve systems were reviewed with pertinent positives and negatives as per HPI. Exam Narrative: Exam Narrative: General: Female resting in bed in no acute distress. HEENT: Normocephalic, EOMI, oral mucosa dry. Cardiovascular: Rate and rhythm are regular. Respiratory: Decreased breath sounds throughout all bhatt ++. No respiratory distress at rest. Tolerating 4L O2. Abdomen: Soft, non-tender, non-distended, bowel sounds present. Extremities: Peripheral pulses intact. No edema. Skin is dry and flaky. Neuro: No focal neurological deficits. Speech is clear. Objective Data Vital Signs Vital Signs: Last Vital Signs Temp 97.7 F 09/07/19 06:00 Pulse 93 09/07/19 09:42 Resp 20 09/07/19 09:42 BP 155/66 H 09/07/19 06:00 Pulse Ox 92 09/07/19 09:03 Intake/Output Intake/Output: Intake & Output 09/04/19 09/05/19 09/06/19 09/07/19 23:59 23:59 23:59 23:59 Intake Total 1000 1260 300 Output Total 600 800 500 Balance 400 460 -200 Meds/Results
[2019-09-07 14:30] LABS: Alanine Aminotransferase 23 U/L (4-35); Alkaline Phosphatase 72 U/L (38-126); Aspartate Amino Transferase 25 U/L (14-36); Bilirubin,Total 0.2 mg/dL (0.2-1.3); Blood Urea Nitrogen 29 mg/dL (7-17); Calcium 9.4 mg/dL (8.4-10.2); Carbon Dioxide 36 mmol/L (22-30); Chloride 90 mmol/L (98-107); Estimated CRCL calculation 57 ml/min; Estimated Glomerular Filt Rate > 60; Glucose 210 mg/dL (65-105); Phosphorus 3.5 mg/dL (2.5-4.5); Sodium 131 mmol/L (137-145)
[2019-09-07] MEDS: FUROSEMIDE INJ 40 MG/4 ML VIAL IV PUSH (16:26)
--- NOTE | 2019-09-07 22:56 | PM.PNPUL ---
Progress Note: A&P Assessment and Plan (1) Acute and chronic respiratory failure, unspecified whether with hypoxia or hypercapnia: Qualifiers: Respiratory failure complication: hypoxia and hypercapnia Qualified Code(s): J96.21 - Acute and chronic respiratory failure with hypoxia; J96.22 - Acute and chronic respiratory failure with hypercapnia Code(s): J96.20 - Acute and chronic respiratory failure, unspecified whether with hypoxia or hypercapnia Status: Acute Assessment and Plan: Hypercapnic hypoxemia; will try to obtain records from Dr Starr, minimize the amount of O2 to limit CO2 retention, add Cornet valve for secretions, increase activity by providing a walker, and having her get out of bed and walk around the room and halls. She has no infiltrates on CXR. Will continue bronchodilators, wean steroids, decreasing O2 to keep saturation not over 94%. I suggested considering hospice, in the setting of not wanting to use PAP and titrating her O2 higher than needed as this worsens CO2 retention, which worsens her resp failure, memory, swelling, CHF. (2) Acute exacerbation of chronic obstructive airways disease: Code(s): J44.1 - Chronic obstructive pulmonary disease with (acute) exacerbation Status: Acute Assessment and Plan: (3) Obstructive sleep apnea: Code(s): G47.33 - Obstructive sleep apnea (adult) (pediatric) Status: Acute Assessment and Plan: Not on treatment. has device at home. Does not want to wear the device offered here. Says that her device at home is better than what she has here. (4) Non-compliant behavior: Code(s): R46.89 - Other symptoms and signs involving appearance and behavior Status: Acute Assessment and Plan: With increasing O2 at home and lack of compliance with PAP, she has worsening acute on chronic hypercapnic resp fialure. She is not interested in using PAP therapy. Subjective Date/time seen: 09/07/19 22:56 Belinda Black is a 79 yo female with acute on chronic respiratory failure, was on home O2 for 10 years, COPD, history of smoking, not using PAP at home although she has a device. Admitted with acute on chronic hypercapnic hypoxemic resp failure. Review of Systems Constitutional: Constitutional: Denies chills Respiratory: Respiratory: Denies hemoptysis Exam Const: General: comfortable and in distress (sitting in a chair, becomes quite short of breath just brushing her teeth) mild and respiratory Eyes: Other: left pupil 3 mm, right pupil 5 mm and more slowly reactive to light than left pupils Neck: Lymphatic: lymphadenopathy not noted Resp: Effort & Inspection: normal respiratory effort Auscultation: diminished lung sounds bilateral and diffuse Cardio: Rate: regular rate Skin: General skin exam: erythema Extrem: General: edema (3+ edema lower legs, erythema, flaking skin, chronic venous stasis changes) bilateral Objective Data Vital Signs Vital Signs: Vital Signs - 24 hr 09/06/19 23:25 09/07/19 00:00 09/07/19 01:36 Temperature Pulse Rate 101 H 98 95 Respiratory Rate 24 H 18 Blood Pressure Pulse Oximetry 94 09/07/19 01:46 09/07/19 04:00 09/07/19 06:00 Temperature 36.5 C Pulse Rate 99 96 99 Respiratory Rate 18 24 H Blood Pressure 155/66 H Pulse Oximetry 95 09/07/19 08:00 09/07/19 09:03 09/07/19 09:26 Temperature Pulse Rate 96 89 Respiratory Rate 18 Blood Pressure Pulse Oximetry 92 09/07/19 09:42 09/07/19 14:00 09/07/19 14:08 Temperature 36.4 C Pulse Rate 93 102 H 96 Respiratory Rate 20 22 H 18 Blood Pressure 146/77 H Pulse Oximetry 100 09/07/19 14:14 09/07/19 19:11
[2019-09-08] VITALS (10 sets, daily range): BP systolic 154–178; BP diastolic 75–92; PULSE 84–102; RESP 18–24; TEMP 36.6–37; O2SAT 94–100
[2019-09-08] MEDS: IPRATROPIUM BR 0.02% INH SOLN 0.5 MG/2.5 ML VIAL INHALATION ×4 (01:18→20:04)
[2019-09-08] MEDS: ALBUTEROL SULFATE NEB 2.5 MG/0.5 ML INH 5 MG INHALATION ×4 (01:18→20:04)
[2019-09-08] MEDS: methylPREDNISolone SOD SUCC 40 MG VIAL IV PUSH ×3 (05:49→22:54)
[2019-09-08 07:01] LABS: Blood Urea Nitrogen 33 mg/dL (7-17); Calcium 9.1 mg/dL (8.4-10.2); Carbon Dioxide > 40 mmol/L (22-30); Chloride 88 mmol/L (98-107); Estimated CRCL calculation 50 ml/min; Estimated Glomerular Filt Rate > 60; Glucose 160 mg/dL (65-105); Potassium 4.2 mmol/L (3.4-5.0); Sodium 131 mmol/L (137-145)
[2019-09-08] MEDS: CELECOXIB 100 MG CAPSULE PO (09:08)
[2019-09-08] MEDS: CHOLECALCIFEROL 1,000 UNIT TABLET 5000 UNITS PO (09:08)
[2019-09-08] MEDS: DICYCLOMINE HCL 10 MG CAPSULE 20 MG PO ×2 (09:09→18:45)
[2019-09-08] MEDS: ENOXAPARIN 40 MG/0.4 ML SYRINGE SUB-Q (09:10)
[2019-09-08] MEDS: OPTI-GEN TAB 1 TABLET PO ×2 (09:10→18:46)
[2019-09-08] MEDS: FAMOTIDINE 10 MG TABLET PO (09:10)
[2019-09-08] MEDS: FUROSEMIDE 20 MG TABLET PO (09:10)
--- NOTE | 2019-09-08 09:59 | PM.IMPN ---
Progress Note: A&P Assessment and Plan (1) Acute exacerbation of chronic obstructive airways disease: Code(s): J44.1 - Chronic obstructive pulmonary disease with (acute) exacerbation Status: Acute Assessment and Plan: Slightly improving. Patient presents again with worsening shortness of breath. Recently hospitalized in July for same. Patient adamantly declines PAP therapy, suspect her recurrent symptoms are secondary to non adherence. She describes following with a chain mender for over 10 years in [place], but since he has retired she has not seen a chain mender in quite some time. Tells me she has been increasing her O2 at home on her own up to 4L Dr Macedo has been consulted - appreciate recommendations. Continue IV solu-medrol, home symbicort, and bronchodilator therapy with duo nebs. Hold spiriva in light of duo neb. Continue pulmozyme and mucinex, Cornet. Detailed discussion held with patient that she is nearing end-stage COPD and although we will treat her symptoms, it is possible she may not make great improvements and this may be her new normal . (2) Acute and chronic respiratory failure, unspecified whether with hypoxia or hypercapnia: Qualifiers: Respiratory failure complication: hypoxia and hypercapnia Qualified Code(s): J96.21 - Acute and chronic respiratory failure with hypoxia; J96.22 - Acute and chronic respiratory failure with hypercapnia Code(s): J96.20 - Acute and chronic respiratory failure, unspecified whether with hypoxia or hypercapnia Status: Acute Assessment and Plan: Worsening over the last few months. She is tolerating 4L today. CO2 on blood gas is near her baseline. (3) Obstructive sleep apnea: Code(s): G47.33 - Obstructive sleep apnea (adult) (pediatric) Status: Acute Assessment and Plan: Instructed that she needed outpatient sleep study at time of recent discharge from here, noncompliant with PAP therapy. (4) Chronic diastolic (congestive) heart failure: Code(s): I50.32 - Chronic diastolic (congestive) heart failure Status: Chronic Assessment and Plan: Chronic, diastolic. Appears well-compensated. Last echo October 2018 demonstrated normal left ventricular systolic function with EF of 65-70% grade 1 diastolic dysfunction. Subjective Date/time seen: 09/08/19 09:45 Interval history: Ms. Black is a 79yo F admitted for COPD exacerbation. She reports she is still feeling pretty short of breath with minimal exertion, just with trying to get up to use the bedside commode. Anxiety not helping her SOB. She reports indigestion this AM but better now. Tolerated breakfast without nausea or vomiting. She is constipated. RN notes she gets very anxious when she feels short of breath but O2 saturations are > 92% at these times. Review of Systems Review of Systems: Narrative: Twelve systems were reviewed with pertinent positives and negatives as per HPI. Exam Narrative: Exam Narrative: General: Female sitting up in bedside chair in no acute distress. HEENT: Normocephalic, EOMI, oral mucosa dry. Cardiovascular: Rate and rhythm are regular. Respiratory: Decreased breath sounds throughout all bhatt ++. A bit tachypneic at rest with pursed lip breathing. Tolerating 4L O2. Abdomen: Soft, non-tender, non-distended, bowel sounds present. Extremities: Peripheral pulses intact. No edema. Skin is dry and flaky. Neuro: No focal neurological deficits. Speech is clear. Objective Data Vital Signs Vital Signs: Last Vital Signs Temp 97.8 F 09/08/19 06:00 Pulse 95 09/08/19 08:49 Resp 20 09/08/19 08:49 BP 154/75 H 09/08/19 06:00 Pulse Ox 95 09/08/19 08:38 Intake/Output Intake/Output: Intake & Output 09/05/19 09/06/19 09/07/19 09/08/19 23:59 23:59 23:59 23:59 Intake Total 1000 1260 18
[2019-09-08] MEDS: DOCUSATE SODIUM 100 MG CAPSULE PO ×2 (12:39→18:50)
--- NOTE | 2019-09-08 18:48 | PM.PNPUL ---
Progress Note: A&P Assessment and Plan (1) Acute and chronic respiratory failure, unspecified whether with hypoxia or hypercapnia: Qualifiers: Respiratory failure complication: hypoxia and hypercapnia Qualified Code(s): J96.21 - Acute and chronic respiratory failure with hypoxia; J96.22 - Acute and chronic respiratory failure with hypercapnia Code(s): J96.20 - Acute and chronic respiratory failure, unspecified whether with hypoxia or hypercapnia Status: Acute Assessment and Plan: Hypercapnic hypoxemia; will try to obtain records from Dr Starr, minimize the amount of O2 to limit CO2 retention, add Cornet valve for secretions, increase activity by providing a walker, and having her get out of bed and walk around the room and halls. She has no infiltrates on CXR. Will continue bronchodilators, wean steroids, decreasing O2 to keep saturation not over 94%. I suggested considering hospice, in the setting of not wanting to use PAP and titrating her O2 higher than needed as this worsens CO2 retention, which worsens her resp failure, memory, swelling, CHF. (2) Acute exacerbation of chronic obstructive airways disease: Code(s): J44.1 - Chronic obstructive pulmonary disease with (acute) exacerbation Status: Acute Assessment and Plan: (3) Obstructive sleep apnea: Code(s): G47.33 - Obstructive sleep apnea (adult) (pediatric) Status: Acute Assessment and Plan: Not on treatment. has device at home. Does not want to wear the device offered here. Says that her device at home is better than what she has here. (4) Non-compliant behavior: Code(s): R46.89 - Other symptoms and signs involving appearance and behavior Status: Acute Assessment and Plan: With increasing O2 at home and lack of compliance with PAP, she has worsening acute on chronic hypercapnic resp fialure. She is not interested in using PAP therpay. Subjective Date/time seen: 09/08/19 18:48 This 79 yo female is seen in follow up for COPD exacerbation. Feels minimally improved. No sputum production. Not wearing PAP at night. Review of Systems Constitutional: Constitutional: Denies chills Cardiovascular: Cardiovascular: Denies chest pain and Denies irregular heart rhythm Respiratory: Respiratory: Denies hemoptysis Exam Const: General: comfortable and no acute distress (sitting in chair watching TV) Eyes: Other: left pupil 3 mm, right pupil 5 mm and more slowly reactive to light than left pupils Neck: Lymphatic: lymphadenopathy not noted Resp: Effort & Inspection: normal respiratory effort Auscultation: diminished lung sounds bilateral and diffuse Cardio: Jugular venous distension: no JVD Rate: regular rate Skin: General skin exam: erythema Extrem: General: edema (3+ edema lower legs, erythema, flaking skin, chronic venous stasis changes) bilateral Objective Data Vital Signs Vital Signs: Vital Signs - 24 hr 09/07/19 19:11 09/07/19 19:25 09/07/19 20:55 Temperature Pulse Rate 90 95 Respiratory Rate 18 18 Blood Pressure Pulse Oximetry 91 09/07/19 22:00 09/08/19 01:21 09/08/19 06:00 Temperature 36.8 C 36.6 C Pulse Rate 104 H 84 98 Respiratory Rate 24 H 18 24 H Blood Pressure 149/66 H 154/75 H Pulse Oximetry 97 98 09/08/19 08:38 09/08/19 08:49 09/08/19 15:09 Temperature 37.0 C Pulse Rate 95 95 97 Respiratory Rate 18 20 22 H Blood Pressure 155/82 H Pulse Oximetry 95 100 09/08/19 15:16 Temperature Pulse Rate 89 Respiratory Rate 20 Blood Pressure Pulse Oximetry Intake/Output Intake/Output: Intake & Output 09/05/19 09/06/19 09/07/19 09/08/19 23:59 23:59 23:59 23:59 Intake
[2019-09-08] MEDS: DORNASE ALFA INH SOLN 1 MG/ML 2.5 ML AMP 2.5 MG INHALATION (20:04)
[2019-09-09] VITALS (12 sets, daily range): BP systolic 134–152; BP diastolic 75–88; PULSE 83–96; RESP 18–24; TEMP 36.2–36.6; O2SAT 96–100
[2019-09-09] MEDS: IPRATROPIUM BR 0.02% INH SOLN 0.5 MG/2.5 ML VIAL INHALATION ×4 (01:12→20:11)
[2019-09-09] MEDS: ALBUTEROL SULFATE NEB 2.5 MG/0.5 ML INH 5 MG INHALATION ×4 (01:12→20:11)
[2019-09-09] MEDS: methylPREDNISolone SOD SUCC 40 MG VIAL IV PUSH ×3 (04:50→21:32)
[2019-09-09 06:21] LABS: Hematocrit 36.9 % (37.0-47.0); Hemoglobin 11.4 g/dL (12.0-15.0); Mean Corpuscular HGB Conc 30.9 g/dl (32-36); Mean Corpuscular Hemoglobin 27.5 pg (26-34); Mean Corpuscular Volume 88.9 fl (80-100); Mean Platelet Volume 10.4 fl (7.4-10.4); Platelet Count Result 304 k/mm3 (150-375); Red Blood Count 4.15 M/mm3 (4.2-5.4); Red Cell Distribution Width 13.2 % (11.5-14.5); White Blood Count 7.4 K/mm3 (4.5-10.0)
[2019-09-09 06:40] LABS: Blood Urea Nitrogen 38 mg/dL (7-17); Calcium 8.8 mg/dL (8.4-10.2); Carbon Dioxide 39 mmol/L (22-30); Chloride 89 mmol/L (98-107); Estimated CRCL calculation 77 ml/min; Estimated Glomerular Filt Rate > 60; Glucose 161 mg/dL (65-105); Magnesium 2.1 mg/dL (1.6-2.3); Phosphorus 3.5 mg/dL (2.5-4.5); Potassium 4.7 mmol/L (3.4-5.0); Sodium 131 mmol/L (137-145)
[2019-09-09] MEDS: DORNASE ALFA INH SOLN 1 MG/ML 2.5 ML AMP 2.5 MG INHALATION ×2 (08:30→20:24)
--- NOTE | 2019-09-09 10:06 | PM.IMPN ---
Progress Note: A&P Assessment and Plan (1) Acute exacerbation of chronic obstructive airways disease: Code(s): J44.1 - Chronic obstructive pulmonary disease with (acute) exacerbation Status: Acute Assessment and Plan: Slightly improving. Patient presents again with worsening shortness of breath. Recently hospitalized in July for same. Patient adamantly declines PAP therapy, suspect her recurrent symptoms are secondary to non adherence. 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 Dr Macedo has been consulted - appreciate recommendations. Continue IV solu-medrol, home symbicort, and bronchodilator therapy with duo nebs. Hold spiriva in light of duo neb. Continue pulmozyme and mucinex, Cornet. Detailed discussion held with patient that she is nearing end-stage COPD and although we will treat her symptoms, it is possible she may not make great improvements and this may be her new normal . (2) Acute and chronic respiratory failure, unspecified whether with hypoxia or hypercapnia: Qualifiers: Respiratory failure complication: hypoxia and hypercapnia Qualified Code(s): J96.21 - Acute and chronic respiratory failure with hypoxia; J96.22 - Acute and chronic respiratory failure with hypercapnia Code(s): J96.20 - Acute and chronic respiratory failure, unspecified whether with hypoxia or hypercapnia Status: Acute Assessment and Plan: Worsening over the last few months. She is tolerating 4L today. CO2 on blood gas is near her baseline. (3) Obstructive sleep apnea: Code(s): G47.33 - Obstructive sleep apnea (adult) (pediatric) Status: Acute Assessment and Plan: Instructed that she needed outpatient sleep study at time of recent discharge from here, noncompliant with PAP therapy. (4) Chronic diastolic (congestive) heart failure: Code(s): I50.32 - Chronic diastolic (congestive) heart failure Status: Chronic Assessment and Plan: Chronic, diastolic. Appears well-compensated. Last echo October 2018 demonstrated normal left ventricular systolic function with EF of 65-70% grade 1 diastolic dysfunction. Subjective Date/time seen: 09/09/19 0900 Interval history: Ms. Black is a 79yo F admitted for COPD exacerbation. She notes she is not feeling much improvement. She is too hesitant to discharge today due to ongoing shortness of breath and because every time she leaves she has to come back. I again explained to her that she needs to be prepared for this potentially to be her new normal and that she may not improve much from here. She responds Don't tell me that . She is felt to have poor insight in regards to her condition. She denies chest pain. Had a BM yesterday and no longer constipated; tolerating oral intake without nausea or vomiting. Review of Systems Review of Systems: Narrative: Twelve systems were reviewed with pertinent positives and negatives as per HPI. Exam Narrative: Exam Narrative: General: Female sitting up in bed in no acute distress. HEENT: Normocephalic, EOMI, oral mucosa dry. Cardiovascular: Rate and rhythm are regular. Respiratory: Decreased breath sounds throughout all bhatt ++. A bit tachypneic at rest with pursed lip breathing. Appears same as yesterday. Tolerating 4L O2. Abdomen: Soft, non-tender, non-distended, bowel sounds present. Extremities: Peripheral pulses intact. No edema. Skin is dry and flaky. Neuro: No focal neurological deficits. Speech is clear. Objective Data Vital Signs Vital Signs: Last Vital Signs Temp 97.8 F 09/09/19 06:00 Pulse 88 09/09/19 08:45 Resp 18 09/09/19 08:45 BP 151/88 H 09/09/19 06:00 Pulse Ox 98 09/09/19 08:33 Intake/Output Intake/Output: Intake & Output 09/06/19 09/07/19 09/08/19 09/09/19 23:59 23:59 23:59
[2019-09-09] MEDS: DICYCLOMINE HCL 10 MG CAPSULE 20 MG PO ×2 (10:34→17:58)
[2019-09-09] MEDS: CHOLECALCIFEROL 1,000 UNIT TABLET 5000 UNITS PO (10:34)
[2019-09-09] MEDS: FAMOTIDINE 10 MG TABLET PO (10:34)
[2019-09-09] MEDS: ENOXAPARIN 40 MG/0.4 ML SYRINGE SUB-Q (10:35)
[2019-09-09] MEDS: OPTI-GEN TAB 1 TABLET PO ×2 (10:35→17:59)
[2019-09-09] MEDS: CELECOXIB 100 MG CAPSULE PO (10:36)
[2019-09-09] MEDS: FUROSEMIDE 20 MG TABLET PO (10:36)
[2019-09-10] VITALS (11 sets, daily range): BP systolic 149–155; BP diastolic 70–75; PULSE 87–93; RESP 18–22; TEMP 36.2–36.7; O2SAT 96–100
[2019-09-10] MEDS: IPRATROPIUM BR 0.02% INH SOLN 0.5 MG/2.5 ML VIAL INHALATION ×4 (02:07→19:49)
[2019-09-10] MEDS: ALBUTEROL SULFATE NEB 2.5 MG/0.5 ML INH 5 MG INHALATION ×2 (02:07→08:20)
[2019-09-10] MEDS: methylPREDNISolone SOD SUCC 40 MG VIAL IV PUSH ×3 (06:11→21:28)
[2019-09-10 06:17] LABS: Blood Urea Nitrogen 39 mg/dL (7-17); Calcium 8.7 mg/dL (8.4-10.2); Carbon Dioxide > 40 mmol/L (22-30); Chloride 88 mmol/L (98-107); Estimated CRCL calculation 77 ml/min; Estimated Glomerular Filt Rate > 60; Glucose 159 mg/dL (65-105); Magnesium 2.1 mg/dL (1.6-2.3); Phosphorus 3.7 mg/dL (2.5-4.5); Potassium 4.9 mmol/L (3.4-5.0); Sodium 131 mmol/L (137-145)
[2019-09-10] MEDS: ENOXAPARIN 40 MG/0.4 ML SYRINGE SUB-Q (08:18)
[2019-09-10] MEDS: DICYCLOMINE HCL 10 MG CAPSULE 20 MG PO ×2 (08:18→17:19)
[2019-09-10] MEDS: FAMOTIDINE 10 MG TABLET PO (08:18)
[2019-09-10] MEDS: CHOLECALCIFEROL 1,000 UNIT TABLET 5000 UNITS PO (08:18)
[2019-09-10] MEDS: OPTI-GEN TAB 1 TABLET PO ×2 (08:18→17:18)
[2019-09-10] MEDS: FUROSEMIDE 20 MG TABLET PO (08:18)
[2019-09-10] MEDS: CELECOXIB 100 MG CAPSULE PO (08:19)
[2019-09-10] MEDS: polyethylene glycoL 3350 17 GM POWD.PACK PO ×2 (08:19→17:24)
[2019-09-10] MEDS: DORNASE ALFA INH SOLN 1 MG/ML 2.5 ML AMP 2.5 MG INHALATION ×2 (08:21→19:49)
--- NOTE | 2019-09-10 13:47 | PM.PNPUL ---
Progress Note: A&P Assessment and Plan (1) Acute and chronic respiratory failure, unspecified whether with hypoxia or hypercapnia: Qualifiers: Respiratory failure complication: hypoxia and hypercapnia Qualified Code(s): J96.21 - Acute and chronic respiratory failure with hypoxia; J96.22 - Acute and chronic respiratory failure with hypercapnia Code(s): J96.20 - Acute and chronic respiratory failure, unspecified whether with hypoxia or hypercapnia Status: Acute (2) Acute exacerbation of chronic obstructive airways disease: Code(s): J44.1 - Chronic obstructive pulmonary disease with (acute) exacerbation Status: Acute Assessment and Plan: - d/c symbicort and start pulmicort 0.5 mg nebs Q12h while inpatient. - Decrease Albuterol dose to 2.5 mg Q6h - continue Ipratropium 0.5 mg Q6h - decrease solumedrol to 40 mg IV Q12h. - needs aggressive PT/OT (3) Obstructive sleep apnea: Code(s): G47.33 - Obstructive sleep apnea (adult) (pediatric) Status: Acute Assessment and Plan: non compliant with PAP Time Spent With Patient Time with patient: 15 - 25 minutes Subjective Date/time seen: 09/10/19 13:47 Interval history: Says she feels only slightly better than admission. Denies productive cough. Still very weak during minimal exertion. Refuses to wear PAP at night. Review of Systems Review of Systems: All systems reviewed & are unremarkable except as noted in HPI and below Exam Const: General: no acute distress HENMT: Mouth: Yes moist mucous membranes Eyes: General: appearance normal, both eyes and all related structures Resp: Auscultation: clear to auscultation bilaterally, no crackles, no rhonchi, no wheezes and diminished lung sounds Cardio: Rate: regular rate Rhythm: regular rhythm GI: Auscultation: normal bowel sounds Neuro: Speech: normal speech Extrem: General: normal to inspection, no edema and no pedal edema Psych: Mental Status: mental status grossly normal Objective Data Vital Signs Vital Signs: Vital Signs - 24 hr 09/09/19 14:00 09/09/19 14:30 09/09/19 14:37 Temperature 36.2 C L Pulse Rate 92 92 90 Respiratory Rate 20 18 18 Blood Pressure 134/77 Pulse Oximetry 100 09/09/19 20:12 09/09/19 20:28 09/09/19 22:00 Temperature 36.6 C Pulse Rate 91 95 96 Respiratory Rate 20 18 20 Blood Pressure 152/75 H Pulse Oximetry 96 99 09/10/19 02:07 09/10/19 06:00 09/10/19 08:20 Temperature 36.2 C L Pulse Rate 87 88 Respiratory Rate 20 18 Blood Pressure 155/75 H Pulse Oximetry 100 96 09/10/19 08:22 09/10/19 08:42 Temperature Pulse Rate 89 87 Respiratory Rate 18 18 Blood Pressure Pulse Oximetry Intake/Output Intake/Output: Intake & Output 09/07/19 09/08/19 09/09/19 09/10/19 23:59 23:59 23:59 23:59 Intake Total 1880 2220 1550 950 Output Total 1100 1900 1500 Balance 780 320 50 950 Meds/Results Medications: Active Medications Generic Name Dose Route Start Last Admin Trade Name Freq PRN Reason Stop Dose Admin Acetaminophen 650 mg 09/05/19 10:02 Tylenol Tablet PO Q4H PRN Mild Pain (1-3) or Fever Albuterol 2.5 mg 09/10/19 13:46 Albuterol Sulf Neb 2.5mg/0.5ml INHALATION Q6HRT [facility] Alprazolam 0.125 mg 09/08/19 09:38 09/09/19 04:45 Xanax PO 0.125 mg TID PRN Administration Anxiety Bisacodyl 5 mg 09/09/19 08:00 Dulcolax Tab PO QAM PRN Constipation Budesonide 0.5 mg 09/10/19 20:00 Pulmicort Respule Neb INHALATION Q12HRT RAISSA Butalbital/Aspirin/Caffeine 1 cap 09/06/19 02:42 Fioricet Capsule PO Q4-6H PRN [facility] Celecoxib 100 mg 09/06/19 09:00 09/10/19 08:19 Celebrex PO 100 mg DAILY RAISSA Administration Dicyclomine HCl 20 mg 09/06/19 09:00 09/10/19 08:18 Bentyl Capsule PO 20 mg BID RAISSA Administration Docusate Sodium 100 mg 09/06/19 02:36 09/08/19 18:50 Colace Capsule PO
[2019-09-10] MEDS: ALBUTEROL SULFATE NEB 2.5 MG/0.5 ML INH INHALATION ×2 (13:51→19:48)
--- NOTE | 2019-09-10 16:47 | PM.IMPN ---
Progress Note: A&P Assessment and Plan (1) Acute exacerbation of chronic obstructive airways disease: Code(s): J44.1 - Chronic obstructive pulmonary disease with (acute) exacerbation Status: Acute Assessment and Plan: Slow improvement. Recently hospitalized in July for same. Patient adamantly declines PAP therapy, suspect her recurrent symptoms are secondary to non adherence. Previously followed with Dr Starr in [place], has not seen him in years. Dr Macedo has been consulted - appreciate recommendations. IV solu-medrol weaned; home symbicort switched to pulmicort, and bronchodilator therapy with duo nebs. Hold spiriva in light of duo neb. Continue pulmozyme and mucinex, Cornet. Detailed discussion held with patient that she is nearing end-stage COPD and although we will treat her symptoms, it is possible this may be her new normal . (2) Acute and chronic respiratory failure, unspecified whether with hypoxia or hypercapnia: Qualifiers: Respiratory failure complication: hypoxia and hypercapnia Qualified Code(s): J96.21 - Acute and chronic respiratory failure with hypoxia; J96.22 - Acute and chronic respiratory failure with hypercapnia Code(s): J96.20 - Acute and chronic respiratory failure, unspecified whether with hypoxia or hypercapnia Status: Acute Assessment and Plan: Worsening over the last few months. She is tolerating 4L today. CO2 on blood gas is near her baseline. (3) Obstructive sleep apnea: Code(s): G47.33 - Obstructive sleep apnea (adult) (pediatric) Status: Acute Assessment and Plan: Instructed that she needed outpatient sleep study at time of recent discharge from here, noncompliant with PAP therapy. (4) Chronic diastolic (congestive) heart failure: Code(s): I50.32 - Chronic diastolic (congestive) heart failure Status: Chronic Assessment and Plan: Chronic, diastolic. Appears well-compensated. Last echo October 2018 demonstrated normal left ventricular systolic function with EF of 65-70% grade 1 diastolic dysfunction. Subjective Date/time seen: 09/10/19 1415 Interval history: Ms. Black is a 79yo F admitted for COPD exacerbation. She says she does not really feel much better than when she came in. She does not feel like she can discharge today since she continues with moderate shortness of breath with minimal exertion. She denies any chest pain. Tells me both of her lower legs have been sore today. She is tolerating oral intake with a good appetite; no nausea or vomiting. Review of Systems Review of Systems: Narrative: Twelve systems were reviewed with pertinent positives and negatives as per HPI. Exam Narrative: Exam Narrative: General: Female sitting up in bed in no acute distress. HEENT: Normocephalic, EOMI, oral mucosa dry. Cardiovascular: Rate and rhythm are regular. Respiratory: Decreased breath sounds throughout all bhatt ++. A bit tachypneic at rest with pursed lip breathing. Appears same as yesterday. Tolerating 4L O2. Abdomen: Soft, non-tender, non-distended, bowel sounds present. Extremities: Peripheral pulses intact. Trace to 1+ TODD lower extremity edema. Skin is dry and flaky. Neuro: No focal neurological deficits. Speech is clear. Objective Data Vital Signs Vital Signs: Last Vital Signs Temp 98.0 F 09/10/19 14:00 Pulse 93 09/10/19 14:00 Resp 18 09/10/19 14:00 BP 153/74 H 09/10/19 14:00 Pulse Ox 96 09/10/19 14:00 Intake/Output Intake/Output: Intake & Output 09/07/19 09/08/19 09/09/19 09/10/19 23:59 23:59 23:59 23:59 Intake Total 1880 2220 1550 950 Output Total 1100 1900 1500 Balance 780 320 50 950 Meds/Results Medications: Active Medications Generic Name Dose Route Start Last Admin Trade Name Freq PRN Reason Stop Dose Admin Acetaminophen 650 m
[2019-09-10] MEDS: BUDESONIDE RESPULE NEB 0.5 MG/2 ML AMP INHALATION (19:48)
[2019-09-11] VITALS (12 sets, daily range): BP systolic 141–168; BP diastolic 70–93; PULSE 80–94; RESP 16–24; TEMP 36.3–36.8; O2SAT 95–100
[2019-09-11] MEDS: ALBUTEROL SULFATE NEB 2.5 MG/0.5 ML INH INHALATION ×4 (01:31→19:05)
[2019-09-11] MEDS: IPRATROPIUM BR 0.02% INH SOLN 0.5 MG/2.5 ML VIAL INHALATION ×4 (01:31→19:05)
[2019-09-11 06:26] LABS: Blood Urea Nitrogen 33 mg/dL (7-17); Calcium 8.4 mg/dL (8.4-10.2); Carbon Dioxide > 40 mmol/L (22-30); Chloride 86 mmol/L (98-107); Estimated CRCL calculation 66 ml/min; Estimated Glomerular Filt Rate > 60; Glucose 161 mg/dL (65-105); Potassium 4.8 mmol/L (3.4-5.0); Sodium 131 mmol/L (137-145)
[2019-09-11] MEDS: DICYCLOMINE HCL 10 MG CAPSULE 20 MG PO ×2 (09:03→17:31)
[2019-09-11] MEDS: OPTI-GEN TAB 1 TABLET PO ×2 (09:03→17:31)
[2019-09-11] MEDS: CHOLECALCIFEROL 1,000 UNIT TABLET 5000 UNITS PO (09:03)
[2019-09-11] MEDS: FAMOTIDINE 10 MG TABLET PO (09:03)
[2019-09-11] MEDS: FUROSEMIDE 20 MG TABLET PO (09:03)
[2019-09-11] MEDS: polyethylene glycoL 3350 17 GM POWD.PACK PO ×2 (09:03→17:31)
[2019-09-11] MEDS: CELECOXIB 100 MG CAPSULE PO (09:03)
[2019-09-11] MEDS: ENOXAPARIN 40 MG/0.4 ML SYRINGE SUB-Q (09:03)
[2019-09-11] MEDS: methylPREDNISolone SOD SUCC 40 MG VIAL IV PUSH ×2 (09:05→22:13)
[2019-09-11] MEDS: DORNASE ALFA INH SOLN 1 MG/ML 2.5 ML AMP 2.5 MG INHALATION ×2 (09:37→19:05)
[2019-09-11] MEDS: BUDESONIDE RESPULE NEB 0.5 MG/2 ML AMP INHALATION ×2 (09:40→19:05)
--- NOTE | 2019-09-11 13:48 | PM.IMPN ---
Progress Note: A&P Assessment and Plan (1) Acute exacerbation of chronic obstructive airways disease: Code(s): J44.1 - Chronic obstructive pulmonary disease with (acute) exacerbation Status: Acute Assessment and Plan: ------- Pt has had slow improvement but is feeling a little better than she did on admission. We talked about her being end stage and she seemed surprised by this (although previous provider also talked to her about this). Recently hospitalized in July for same. She adamantly declines PAP therapy, and we talked about changing this. Pulmonology is following and is tappering steroids, she is now on 40mg Q12. Continue pulmicort, albuterol, and ipratropium. (2) Chronic respiratory failure with hypoxia and hypercapnia: Code(s): J96.11 - Chronic respiratory failure with hypoxia; J96.12 - Chronic respiratory failure with hypercapnia Status: Acute Assessment and Plan: -----Continue home o2 settings and pap therapy. (3) Obstructive sleep apnea: Code(s): G47.33 - Obstructive sleep apnea (adult) (pediatric) Status: Acute Assessment and Plan: -----Noncompliant with PAP therapy, as stated above. (4) Chronic diastolic (congestive) heart failure: Code(s): I50.32 - Chronic diastolic (congestive) heart failure Status: Chronic Assessment and Plan: ------Chronic, diastolic. Appears well-compensated. Last echo October 2018 demonstrated normal left ventricular systolic function with EF of 65-70% grade 1 diastolic dysfunction. (5) Hyperglycemia: Code(s): R73.9 - Hyperglycemia, unspecified Status: Acute Assessment and Plan: -----likely d/t steroids. Her A1c last draw was WNL. Time Spent With Patient Time with patient: 25 - 35 minutes Subjective Date/time seen: 09/11/19 13:48 Interval history: Pt is a 79-year-old female here for COPD exacerbation. Patient was seen today and states that she is doing okay. She still feels short of breath and still has a wet cough that she cannot get up. She says she feels tired and has been sleeping okay. She said her shortness of breath is a bit better when compared to coming in. She denies nausea, vomiting, fever, chills, chest pain, abdominal pain, eating and drinking okay. Her last bowel movement was yesterday. She said her legs are usually red and sometimes swollen as she does not like to take her water pill because she hates getting up at night. We had a long discussion about her not using her PAP therapy and she says that she does not like the way it feels and cannot put on and take it off so many times and middle the night when she gets up to urinate. We talked about end-stage lung disease and she seemed to understand. She said she may try her PAP therapy again when she gets home. Review of Systems Review of Systems: All systems reviewed & are unremarkable except as noted in HPI and below Exam Narrative: Exam Narrative: General: overweight pt resting in the chair in NAD HEENT: normocephalic Neck: supple Neuro: Alert and oriented x4 CV:RRR Resp:Absent breath sounds throughout. No wheezing. Very little air movement. Abd: Soft, non distended. No pain to palpation. Positive bowel sounds Extremities: Trace edema with some erythema. Pain to palpation to both LE. Objective Data Vital Signs Vital Signs: Vital Signs - 24 hr 09/10/19 13:52 09/10/19 14:00 09/10/19 19:50 Temperature 98.0 F Pulse Rate 92 93 88 Respiratory Rate 18 18 18 Blood Pressure 153/74 H Pulse Oximetry 96 09/10/19 19:54 09/10/19 19:59 09/10/19 22:00 Temperature 97.5 F L Pulse Rate 90 87 Respiratory Rate 18 22 H Blood Pressure 149/70 H Pulse Oximetry 98 100 09/11/19 01:31 09/11/19 01:36 09/11/19 06:00 Temperature 98.2 F Pulse Rate 86 89 89 Respiratory Rate 18 18 22 H Blood Pressure 168/93 H Pulse Oximetry 100 09/11/19 10:34 Temperature Pulse Rate 94 Respi
--- NOTE | 2019-09-11 21:48 | PM.PNPUL ---
Progress Note: A&P Assessment and Plan (1) Acute and chronic respiratory failure, unspecified whether with hypoxia or hypercapnia: Qualifiers: Respiratory failure complication: hypoxia and hypercapnia Qualified Code(s): J96.21 - Acute and chronic respiratory failure with hypoxia; J96.22 - Acute and chronic respiratory failure with hypercapnia Code(s): J96.20 - Acute and chronic respiratory failure, unspecified whether with hypoxia or hypercapnia Status: Acute Assessment and Plan: She is on 4 L/min, and this is about what she uses at home. (2) Acute exacerbation of chronic obstructive airways disease: Code(s): J44.1 - Chronic obstructive pulmonary disease with (acute) exacerbation Status: Acute Assessment and Plan: - continue pulmicort 0.5 mg nebs Q12h while inpatient. - albuterol dose to 2.5 mg Q6h - continue Ipratropium 0.5 mg Q6h - decrease solumedrol to 40 mg IV Q12h. - needs aggressive PT/OT (3) Obstructive sleep apnea: Code(s): G47.33 - Obstructive sleep apnea (adult) (pediatric) Status: Acute Assessment and Plan: non compliant with PAP she is not planning to use this when she goes home Subjective Date/time seen: 09/11/19 21:48 Interval history: 79-year-old female here for COPD, acute on chronic respiratory failure, continues to have shortness of breath, much better than she felt at admission. She is coughing with small amounts of sputum, 1/2 teaspoon. She uses the Cornet valve, blows with suboptimal effort. She woke with pain in her left leg this morning. She says that she is not getting enough exercise, and is not happy that she has a bed alarm. I talked with her about planning to go home. She has been here 6 days, is improved compared to admission. CXR today shows no acute disease. Le dopplers are negative for DVT. Review of Systems Review of Systems: Narrative: Not obtained form the patient. Constitutional: Constitutional: Denies chills Musculoskeletal: Musculoskeletal: Reports abnormal gait (left upper leg pain started this morning, making it hard to walk) Exam Eyes: Other: left pupil 3 mm, right pupil 5 mm and more slowly reactive to light than left pupils Resp: Auscultation: no wheezes Cardio: Rate: regular rate Rhythm: regular rhythm Skin: General skin exam: erythema Objective Data Vital Signs Vital Signs: Vital Signs - 24 hr 09/10/19 22:00 09/11/19 01:31 09/11/19 01:36 Temperature 36.4 C L Pulse Rate 87 86 89 Respiratory Rate 22 H 18 18 Blood Pressure 149/70 H Pulse Oximetry 100 09/11/19 06:00 09/11/19 10:34 09/11/19 10:50 Temperature 36.8 C Pulse Rate 89 94 90 Respiratory Rate 22 H 23 H 20 Blood Pressure 168/93 H Pulse Oximetry 100 97 09/11/19 14:00 09/11/19 14:01 09/11/19 14:08 Temperature 36.3 C L Pulse Rate 80 86 88 Respiratory Rate 16 24 H 20 Blood Pressure 150/88 H Pulse Oximetry 95 09/11/19 19:06 09/11/19 19:09 09/11/19 19:15 Temperature Pulse Rate 87 87 Respiratory Rate 22 H 22 H Blood Pressure Pulse Oximetry 97 Intake/Output Intake/Output: Intake & Output 09/08/19 09/09/19 09/10/19 09/11/19 23:59 23:59 23:59 23:59 Intake Total 2220 1550 1890 1220 Output Total 1900 1500 1250 1500 Balance 320 50 640 -280 Meds/Results Medications: Active Medications Generic Name Dose Route Start Last Admin Trade Name Freq PRN Reason Stop Dose Admin Acetaminophen 650 mg 09/05/19 10:02 Tylenol Tablet PO Q4H PRN Mild Pain (1-3) or Fever Albuterol 2.5 mg 09/10/19 14:00 09/11/19 19:05 Albuterol Sulf Neb 2.5mg/0.5ml INHALATION 2.5 mg Q6HRT RAISSA Administration Alprazolam 0.125 mg 09/08/19 09:38 09/11/19 17:36 Xanax PO 0.125 mg TID PRN Administration Anxiety Bisacodyl 5 mg 09/09/19 08:00 Dulcolax Tab PO QAM PRN Constipation Budesonide 0.5 mg 09/10/19 20:00 09/11/19 19:05 Pulmicort Respule Neb I
[2019-09-11] MEDS: SODIUM CHLORIDE NASAL GEL 14.1 GM 1 APPLIC NASAL (22:14)
[2019-09-12] VITALS (9 sets, daily range): BP systolic 138–178; BP diastolic 62–80; PULSE 80–93; RESP 18–20; TEMP 36.4–36.6; O2SAT 97–100
[2019-09-12] MEDS: ALBUTEROL SULFATE NEB 2.5 MG/0.5 ML INH INHALATION ×3 (02:19→14:24)
[2019-09-12] MEDS: IPRATROPIUM BR 0.02% INH SOLN 0.5 MG/2.5 ML VIAL INHALATION ×3 (02:19→14:24)
[2019-09-12 06:07] LABS: Hematocrit 37.9 % (37.0-47.0); Hemoglobin 11.8 g/dL (12.0-15.0); Mean Corpuscular HGB Conc 31.1 g/dl (32-36); Mean Corpuscular Hemoglobin 27.6 pg (26-34); Mean Corpuscular Volume 88.6 fl (80-100); Mean Platelet Volume 9.7 fl (7.4-10.4); Platelet Count Result 370 k/mm3 (150-375); Red Blood Count 4.28 M/mm3 (4.2-5.4); Red Cell Distribution Width 13.1 % (11.5-14.5); White Blood Count 11.8 K/mm3 (4.5-10.0)
[2019-09-12 06:19] LABS: Blood Urea Nitrogen 32 mg/dL (7-17); CRP 0.8 mg/dL (<1.0); Calcium 8.6 mg/dL (8.4-10.2); Carbon Dioxide > 40 mmol/L (22-30); Chloride 87 mmol/L (98-107); Estimated CRCL calculation 66 ml/min; Estimated Glomerular Filt Rate > 60; Glucose 177 mg/dL (65-105); Lactate Dehydrogenase 469 U/L (313-618); Potassium 5.1 mmol/L (3.4-5.0); Sodium 130 mmol/L (137-145)
--- NOTE | 2019-09-12 08:05 | PCOTNOTE ---
Attempted to see patient this am, however patient declined stating, Oh honey, I can't do it right now. I'm freezing! It's so cold in here. I don't wanna get up right now. Adjusted room thermostat, and patient not seen at this time for this reason.
[2019-09-12] MEDS: DORNASE ALFA INH SOLN 1 MG/ML 2.5 ML AMP 2.5 MG INHALATION (08:41)
[2019-09-12] MEDS: BUDESONIDE RESPULE NEB 0.5 MG/2 ML AMP INHALATION (08:41)
[2019-09-12] MEDS: DICYCLOMINE HCL 10 MG CAPSULE 20 MG PO (09:15)
[2019-09-12] MEDS: ENOXAPARIN 40 MG/0.4 ML SYRINGE SUB-Q (09:15)
[2019-09-12] MEDS: OPTI-GEN TAB 1 TABLET PO (09:16)
[2019-09-12] MEDS: FUROSEMIDE 20 MG TABLET PO (09:16)
[2019-09-12] MEDS: CELECOXIB 100 MG CAPSULE PO (09:16)
[2019-09-12] MEDS: CHOLECALCIFEROL 1,000 UNIT TABLET 5000 UNITS PO (09:16)
[2019-09-12] MEDS: FAMOTIDINE 10 MG TABLET PO (09:16)
--- NOTE | 2019-09-12 09:38 | PCDIET ---
Weekly nutritional screen. Patient is tolerating current diet with adequate intake (75-100% of meals). No weight loss reported. Patient reports good appetite with BMI of 39.8. No nutritional needs at this time.
[2019-09-12] MEDS: predniSONE 20 MG TABLET 40 MG PO (10:35)
--- NOTE | 2019-09-12 12:00 | PCOTNOTE ---
Attempted to see patient this pm, however patient refused activity out of bed at this time. Attempted upper extremity exercises, and patient began crying rating pain in her arms 10/10. Pt reported just getting a pain pill. Nursing notified.
--- NOTE | 2019-09-12 15:40 | PM.DS ---
DS: Diagnosis Admitting Diagnosis Admitting Diagnosis: Chronic obstructive pulmonary disease with (acute) exacerbation Discharge Diagnosis (1) Acute exacerbation of chronic obstructive airways disease: Code(s): J44.1 - Chronic obstructive pulmonary disease with (acute) exacerbation Status: Acute (2) Chronic respiratory failure with hypoxia and hypercapnia: Code(s): J96.11 - Chronic respiratory failure with hypoxia; J96.12 - Chronic respiratory failure with hypercapnia Status: Acute (3) Obstructive sleep apnea: Code(s): G47.33 - Obstructive sleep apnea (adult) (pediatric) Status: Acute (4) Chronic diastolic (congestive) heart failure: Code(s): I50.32 - Chronic diastolic (congestive) heart failure Status: Chronic (5) Hyperglycemia: Code(s): R73.9 - Hyperglycemia, unspecified Status: Acute DS: Summary Hospital Course Reason for hospitalization: SOB/COPD exacerbation Hospital Course: Patient is a 79-year-old female who presented emergency room on September 04 for shortness of breath over last 4 days. She has chronic COPD and she is usually on 2 L of oxygen nasal cannula. Temperature 98.4?, respiratory rate 23, pulse ox 110, blood pressure 187/107, pulse ox 89 on 2 L. white blood cell count 8.1, hemoglobin 11.3, hematocrit 36.9, platelets 337. Sodium 134, potassium 4.2, chloride 91, carbon dioxide greater than 40, BUN 19, creatinine 0.5, glucose 144. Chest x-ray was negative. Patient was admitted to the hospitalist service for COPD exacerbation placed on IV steroids. She saw pulmonology which adjusted her medications while hospitalized. The patient was slow to recover but eventually was back to her baseline. She has a history of noncompliance and does not wear her PAP therapy. I called her primary care physician it does not appear that she follows up very often. She was not tested for COVID-19 during the stay as she did not fit the clinical picture, had no fevers, LDH, ferritin, and CRP were normal, and she improved with steroid therapy. The day of discharge she was feeling back to baseline and is going to follow-up with her primary care physician and the pump assembler outpatient. Her potassium was slightly high 5.1 and she is going to get a repeat BMP in 1 week. I called her primary care physician and let him know and he is going to follow it. Patient was educated about the worrisome signs symptoms come back to emergency room for was discharged in stable condition Status at Discharge Overall status at discharge: patient is back to baseline Time Spent with Patient Time attestation: Total time spent providing and/or coordinating discharge services:36 min Exam Narrative: Exam Narrative: General: overweight pt resting in the chair in NAD HEENT: normocephalic Neck: supple Neuro: Alert and oriented x4 CV:RRR Resp:Absent breath sounds throughout. No wheezing. Very little air movement. Abd: Soft, non distended. No pain to palpation. Positive bowel sounds Extremities: Trace edema with some erythema. Pain to palpation to both LE. DS: Data Data Completed and Pending Labs on day of discharge: Labs from last 24 hours 09/12/19 09/12/19 09/12/19 05:23 05:23 05:23 WBC 11.8 H RBC 4.28 Hgb 11.8 L Hct 37.9 MCV 88.6 MCH 27.6 MCHC 31.1 L RDW 13.1 Plt Count 370 MPV 9.7 Sodium 130 L Potassium 5.1 H Chloride 87 L Carbon Dioxide > 40 H BUN 32 H Creatinine 0.60 L Estim Creat Clear Calc 66 Estimated GFR > 60 Glucose 177 H Calcium 8.6 Ferritin 47.70 Lactate Dehydrogenase 469 C-Reactive Protein 0.8 Discharge Plan Discharge Attending physician on discharge: Justus Herman Consulting providers: Sophia Macedo Discharging Clinician: Erum Nolan Patient Disposition: Home, Self-Care Activity: as tolerated Diet: regular Discharge Instructions: -Please take your medications as
== END 2019-09-12 17:15 | disposition home or self-care (01) | DRG 191 ==
LOC: ANHED 10:10 → ANH3MEDSUR 10:28
PROVIDERS: Emergency Medicine; Physician Assistant; Admitting Provider Family Medicine; Emergency Provider Emergency Medicine; PCP Internal Medicine; Visit Provider Physician Assistant
DX: J43.9 Emphysema, unspecified (principal); I50.32 Chronic diastolic (congestive) heart failure; J96.12 Chronic respiratory failure with hypercapnia; J96.11 Chronic respiratory failure with hypoxia; I11.0 Hypertensive heart disease with heart failure; G47.33 Obstructive sleep apnea (adult) (pediatric); R46.89 Other symptoms and signs involving appearance and behavior; R73.9 Hyperglycemia, unspecified; Z96.651 Presence of right artificial knee joint; Z79.899 Other long term (current) drug therapy; Z87.891 Personal history of nicotine dependence; Z91.19 Patient's noncompliance with other medical treatment and regimen; Z99.81 Dependence on supplemental oxygen
CPT/HCPCS: 36415; 36600; 71045; 80048; 80053; 82375; 82728; 82805; 83050; 83615; 83735; 84100; 84484; 85025; 85027; 86140; 93005; 93970; 94640; 94667; 94668; 96365; 96375; 97116; 97162; 97165; 97530; 97535; 99285; A9270; J1650; J1940; J2270; J2920; J2930; J3475; J7040; J7512

== ENCOUNTER 2019-09-22 09:06 | Inpatient (IN) | payer MEDICARE, SELFPAY ==
[2019-09-22] VITALS (16 sets, daily range): BP systolic 129–164; BP diastolic 53–91; PULSE 66–106; RESP 18–26; TEMP 36.6–37.2; O2SAT 90–98; BMI 40.0
--- NOTE | ~2019-09-22 | XR_ITS ---
XR chest 1V portable DATE: 09/22/2019 10:02 INDICATION: Cough, shortness of breath TECHNIQUE: Portable AP chest on 09/22/2019 at 1002 hours COMPARISON: 09/11/2019 portable AP chest FINDINGS: Normal heart size. There is aortic arch calcification. No hilar or mediastinal enlargement. No pulmonary infiltrate or consolidation, pleural effusion or pulmonary vascular congestion or pneumo thorax is evident. Severe osteoarthritic change at the glenohumeral joints. Osteopenia. Pedicle screws and rods are noted in the lumbar area. IMPRESSION: No active cardiopulmonary disease Reviewed, dictated and finalized at location A.
--- NOTE | 2019-09-22 09:09 | ECG_ITS ---
Measurements Intervals [place] Rate: 96 P: 90 IN: 148 QRS: 26 QRSD: 81 T: 75 QT: 314 QTc: 397 Interpretive Statements SINUS RHYTHM LOW QRS VOLTAGE IN PRECORDIAL LEADS BORDERLINE T WAVE ABNORMALITY- HIGH LATERAL LEADS BASELINE ARTIFACT- I, II, III, AVR, AVL, AVF, V1, V5 BORDERLINE ECG Electronically Signed On 09-22-2019 9:48:25 CDT by Moiz Melton D.O.
--- NOTE | 2019-09-22 09:15 | ED.SOB ---
HPI - SOB/Dyspnea General Chief Complaint: Shortness of Breath/Dyspnea Stated Complaint: sob Source: RN notes reviewed History of Present Illness HPI Narrative: Patient presents to the emergency department via EMS for shortness of breath. Patient states she has a history of COPD and is chronically on 3 L nasal cannula. She states she woke up this morning and felt more short of breath and increased oxygen of 5 L nasal cannula and called EMS. She denies any recent illness denies any fevers or chills states an occasional cough but denies any production any new change to cough denies any chest pain abdominal pain nausea vomiting or any other symptoms. Related Data Home Medications Medication Instructions Recorded Confirmed albuterol sulfate 2.5 mg/0.5 mL 2.5 mg INHALATION Q20M 03/16/19 09/05/19 solution for nebulization celecoxib 100 mg capsule 100 mg PO DAILY 03/16/19 09/05/19 cholecalciferol (vitamin D3) 125 5,000 unit PO DAILY 03/16/19 09/05/19 mcg (5,000 unit) tablet docusate sodium 100 mg capsule 100 mg PO BID PRN 03/16/19 09/05/19 famotidine 10 mg tablet 10 mg PO DAILY 03/16/19 09/05/19 fexofenadine 60 mg-pseudoephedrine 1 tablet PO Q12H PRN 03/16/19 09/05/19 ER 120 mg tablet,ext.release,12 hr oxycodone-acetaminophen 10 mg-325 10 tablet PO QID PRN tablet 03/16/19 09/05/19 mg tablet Pepto-Bismol 2 tablet PO MONTHLY PRN 07/12/19 09/05/19 PreserVision AREDS-2 1 tablet PO BID 07/12/19 09/05/19 budesonide-formoterol [Symbicort] 2 puff INHALATION Q12H 07/12/19 09/05/19 sodium chloride [Nicholls Nasal] 2 spray INTRANASAL PRN 07/12/19 09/05/19 albuterol sulfate [ProAir HFA] 2 puff INHALATION QID PRN 09/05/19 09/05/19 zolpidem 5 mg PO HS PRN 09/05/19 09/05/19 Allergies Allergy/AdvReac Type Severity Reaction Status Date / Time Sulfa (Sulfonamide Allergy Unknown Unknown Verified 09/22/19 09:20 Antibiotics) Review of Systems Review of Systems: Narrative: Gen.: Denies fevers or chills ENT: Denies congestion Respiratory: Reports shortness of breath CV: Denies chest pain or palpitations GI: Denies abdominal pain nausea, emesis or diarrhea Musculoskeletal: Denies back pain or muscle pain Neuro: Denies numbness, tingling, weakness or focal weakness Skin: Denies rash Except as documented, all other systems reviewed and negative [facility] Past Medical History Medical History Abdominal bruit renal US negative for stenosis Aortic stenosis Mild on echocardiogram from October 2018 Borderline diabetic Cataracts, bilateral Maturing cataracts bilaterally Chronic diastolic (congestive) heart failure Echocardiogram October 2018 demonstrated normal left ventricular systolic function with EF of 65-70% grade 1 diastolic dysfunction mild aortic stenosis with a normal RVSP of 34 Chronic pain syndrome With chronic back, bilateral shoulder, and left knee pain Chronic respiratory failure with hypoxia and hypercapnia COPD with emphysema Dependence on supplemental oxygen Essential (primary) hypertension Fractured coccyx GERD (gastroesophageal reflux disease) History of angina History of tobacco abuse Insomnia Liver mass 21 mm likely benign noted on imaging for 2018 Obstructive sleep apnea on CPAP Non compliant Thyroid nodule On CT scan from July 2017 Ulcerative colitis Venous stasis dermatitis of both lower extremities Vitamin D deficiency Surgical History Surgical History (Updated 08/08/19 @ 20:50 by Airam Crow DO) History of total right knee replacement January 2012 History of ventral hernia repair With abdominoplasty Hx of arthroscopy of left knee 2000 Hx of spinal surgery Lumbar surgery 2001 Hx of tonsillectomy Social History Social History Social History: Primary care physician: Dr. Wing Cesar Code status: Full code Smoking status: Former smoker Tobacco type: cigarettes Sm
[2019-09-22] MEDS: methylPREDNISolone SOD SUCC 125 MG VIAL IV PUSH (09:28)
[2019-09-22] MEDS: ALBUTEROL SULFATE NEB 2.5 MG/0.5 ML INH 5 MG INHALATION ×2 (09:31→10:40)
[2019-09-22] MEDS: IPRATROPIUM BR 0.02% INH SOLN 0.5 MG/2.5 ML VIAL INHALATION ×2 (09:31→10:40)
[2019-09-22 09:47] LABS: Alveolar/Arterial O2 Gradient 63.3 mmHg; Base Excess ABG 12.6 mEq/l (+/-2.0); Fractional Inspired Oxygen 28 %; Oxygen Content ABG 15.8 %vol (16.0-22.0); Oxygen Saturation ABG 89.8 % (95.0-100.0); Oxyhemoglobin 89.9 % THb (90.0-100.0); PO2 ABG 59.2 mmHg (80.0-100.0); PO2 FiO2 Ratio Arterial Blood 2.11 %; Total Hemoglobin 12.5 g/dL (12.0-18.0); pH ABG 7.404 (7.350-7.450)
[2019-09-22 09:49] LABS: Device NASAL CANNULA; Modified Allen's Test Pass; PCO2 ABG 65.4 mmHg (35.0-45.0); Site Drawn RIGHT RADIAL
[2019-09-22 10:03] LABS: Basophils Absolute Auto 0.1 K/mm3 (0.0-0.1); Basophils Percent Auto 0.5 % (0.2-1.2); Eosinophils Percent Auto 7.3 % (0-4.4); Hematocrit 37.6 % (37.0-47.0); Hemoglobin 11.6 g/dL (12.0-15.0); Immature Granulocyte Absolute 0.07 K/mm3 (0.00-0.031); Immature Granulocyte Percent A 0.5 % (0-0.5); Lymphocytes Absolute Auto 1.24 K/mm3 (0.9-3.2); Lymphocytes Percent Auto 9.4 % (18.3-44.2); Mean Corpuscular HGB Conc 30.9 g/dl (32-36); Mean Corpuscular Volume 90.6 fl (80-100); Monocytes Absolute Auto 1.8 K/mm3 (0.1-0.6); Monocytes Percent Auto 13.6 % (2.6-8.5); Neutrophils Absolute Auto 9.1 K/mm3 (1.3-6.7); Neutrophils Percent Auto 68.7 % (45.5-73.1); Platelet Count Result 163 k/mm3 (150-375); Red Blood Count 4.15 M/mm3 (4.2-5.4); Red Cell Distribution Width 13.9 % (11.5-14.5); White Blood Count 13.2 K/mm3 (4.5-10.0)
[2019-09-22 10:14] LABS: INR 0.9; Partial Thromboplastin Time 24.8 SECONDS (22.3-36.8); Prothrombin Time 11.9 Seconds (11.1-14.7)
[2019-09-22 10:18] LABS: Lactic Acid Reflex 0.9 mmol/L (0.7-2.1)
[2019-09-22 10:20] LABS: Alanine Aminotransferase 39 U/L (4-35); Albumin Level 3.6 g/dL (3.5-5.1); Alkaline Phosphatase 60 U/L (38-126); Aspartate Amino Transferase 26 U/L (14-36); Bilirubin,Total 0.6 mg/dL (0.2-1.3); Blood Urea Nitrogen 27 mg/dL (7-17); Calcium 8.5 mg/dL (8.4-10.2); Carbon Dioxide > 40 mmol/L (22-30); Chloride 90 mmol/L (98-107); Estimated CRCL calculation 76 ml/min; Estimated Glomerular Filt Rate > 60; Glucose 128 mg/dL (65-105); Sodium 132 mmol/L (137-145)
[2019-09-22 10:33] LABS: NT Pro B Type Natriuretic Pept 458 PG/ML (5-100); Troponin I 0.037 ng/mL (0.000-0.034)
[2019-09-22] MEDS: ASPIRIN 81 MG CHEWABLE TABLET 324 MG PO (12:16)
--- NOTE | 2019-09-22 13:37 | ADMIMU ---
This patient, Belinda Black, was admitted to IMU status, and placed in Intensive Care Unit-2 at 1310. Patient/family oriented to hospital policies and general routines including ID bracelet, bed and alarms, visiting hours, pain management, procedures, bathroom and other care routines, personal items, smoking policy, room service/diet, and visiting hours. Valuables list has been completed. Information on how to activate the Rapid Response Team has been discussed. Patient/Family are encouraged to report perceived risks to care and to ask questions if they do not understand what they are told or what they should do.
--- NOTE | 2019-09-22 13:44 | ADMIMU ---
This patient, Belinda Black, was admitted to IMU status, and placed in Intensive Care Unit-2 on 09/22/19 at 1310. Patient/family oriented to hospital policies and general routines including ID bracelet, bed and alarms, visiting hours, pain management, procedures, bathroom and other care routines, personal items, smoking policy, room service/diet, and visiting hours. Valuables list has been completed. Information on how to activate the Rapid Response Team has been discussed. Patient/Family are encouraged to report perceived risks to care and to ask questions if they do not understand what they are told or what they should do.
[2019-09-22] MEDS: methylPREDNISolone SOD SUCC 125 MG VIAL 60 MG IV PUSH ×2 (15:54→21:24)
[2019-09-22 16:01] LABS: Troponin I 0.031 ng/mL (0.000-0.034)
--- NOTE | 2019-09-22 18:40 | PM.IMHP ---
H&P: HPI History of Present Illness Chief complaint: ae copd,elevated troponin Narrative: Belinda Black is a 79 year old female she has a history of COPD and obstructive sleep apnea. The patient has chronic hypoxia is on oxygen at 3 L per nasal cannula. The patient stated that she was short of breath when she woke up this morning and increase her oxygen up to 5 L per nasal cannula. She denies any fever chills. She previously was checked for COVID that was negative. The patient was just discharged from here on September 11 of this year. Patient had been on oral steroids after being weaned off of IV steroids. Patient uses nebulizers at home. The patient has a CPAP machine but admits that she does not use it every night. Patient had been on Pulmicort nebs while she was here. At 3 L per nasal cannula. The patient was given nebulizer treatments in the emergency room and given Solu-Medrol. She was also given a chewable aspirin in the emergency room. For COVID and is in isolation in ICU as a IMU patient. Patient's CO2 is 65.4 and her pH is normal 7.4. Patient CO2 typically ranges in the 50s to 60s. The patient typically sees Dr. Sophia Macedo. Date of service 09/22/2019 Review of Systems Review of Systems: Narrative: No fever no chills. All systems reviewed & are unremarkable except as noted in HPI and below Constitutional: Constitutional: Reports as per HPI and Reports no additional constitutional complaints Eyes: Eyes: Reports as per HPI and Reports no additional eye complaints ENT: Reports system reviewed and no additional complaints, except as documented and Reports Normal hearing present Cardiovascular: Cardiovascular: Reports no additional cardiovascular complaints Respiratory: Respiratory: Reports no additional respiratory complaints and Reports no additional respiratory complaints Gastrointestinal: Gastrointestinal: Reports as per HPI and Reports no additional gastrointestinal complaints Musculoskeletal: Musculoskeletal: Reports no additional musculoskeletal complaints Integumentary/Breasts: Skin/Breast: Reports system reviewed and no additional complaints, except as docu and Reports as per HPI Neurologic: Reports system reviewed and no additional complaints, except as documented, Reports as per HPI and Reports Normal hearing present Psychiatric: Psychiatric: Reports no additional psychiatric complaints and Reports as per HPI Endocrine: Endocrine: Reports no additional endocrine complaints Hematologic/Lymphatic: Hematologic/Lymphatic: Reports no additional hematologic/lymphatic complaints Allergic/Immunologic: Allergic/Immunologic: Reports no additional allergic/immunologic complaints PMFSH Surgical History Surgical History History of total right knee replacement January 2012 History of ventral hernia repair With abdominoplasty Hx of arthroscopy of left knee 2000 Hx of spinal surgery Lumbar surgery 2001 Hx of tonsillectomy Family History Family History Mother Diabetes mellitus Father COPD (chronic obstructive pulmonary disease) Sibling Lung disease Brother Social History Social History (Updated 09/22/19 @ 18:50 by Gisella Lima NP) Social History: The patient lives at home with her . She has 3 children. She was a former smoker. Primary care physician: Dr. Wing Cesar Code status: Full code Smoking status: Former smoker Tobacco type: cigarettes Smoking end date: 04/01/08 Additional smoking assessment comments: 50 pack per year smoking history but quit in 2007. Alcohol intake: never Substance use: never Additional living arrangements comments: She lives with her of over 60 years. She ambulates with a walker on occasion and has chronic gait instability. 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 G
[2019-09-22 19:30] LABS: Troponin I 0.035 ng/mL (0.000-0.034)
[2019-09-22] MEDS: DICYCLOMINE HCL 10 MG CAPSULE 20 MG PO (20:24)
--- NOTE | 2019-09-22 20:24 | PC.NURSE ---
CPAP ordered for pt to wear at night. Staff was going to move pt to negative pressure room ICU 4 for CPAP use while pt is awaiting COVID test results. Pt states she does not need to move rooms because she does not wear the CPAP at home and will not attempt to wear it here. Gisella Lima NP and Dr. Macedo notified by BECKY Alegria.
[2019-09-23] VITALS (15 sets, daily range): BP systolic 156–232; BP diastolic 64–162; PULSE 86–109; RESP 16–24; TEMP 36.3–36.9; O2SAT 84–98
[2019-09-23 04:36] LABS: Alveolar/Arterial O2 Gradient 99.6 mmHg; Base Excess ABG 7.2 mEq/l (+/-2.0); Device NASAL CANNULA; Fractional Inspired Oxygen 32 %; HCO3 ABG 32.1 mEq/l (22.0-26.0); Modified Allen's Test Pass; Oxygen Saturation ABG 95.3 % (95.0-100.0); Oxyhemoglobin 93.9 % THb (90.0-100.0); PCO2 ABG 47.1 mmHg (35.0-45.0); PO2 ABG 73.5 mmHg (80.0-100.0); Site Drawn RIGHT RADIAL; Total Hemoglobin 12.1 g/dL (12.0-18.0); pH ABG 7.452 (7.350-7.450)
[2019-09-23] MEDS: methylPREDNISolone SOD SUCC 125 MG VIAL 60 MG IV PUSH ×4 (04:59→22:21)
[2019-09-23 05:59] LABS: Basophils Percent Auto 0.2 % (0.2-1.2); Hematocrit 38.7 % (37.0-47.0); Hemoglobin 12.2 g/dL (12.0-15.0); Immature Granulocyte Absolute 0.08 K/mm3 (0.00-0.031); Immature Granulocyte Percent A 0.8 % (0-0.5); Lymphocytes Absolute Auto 0.42 K/mm3 (0.9-3.2); Lymphocytes Percent Auto 4.5 % (18.3-44.2); Mean Corpuscular HGB Conc 31.5 g/dl (32-36); Mean Corpuscular Volume 88.8 fl (80-100); Mean Platelet Volume 10.3 fl (7.4-10.4); Monocytes Absolute Auto 0.3 K/mm3 (0.1-0.6); Monocytes Percent Auto 3.1 % (2.6-8.5); Neutrophils Absolute Auto 8.6 K/mm3 (1.3-6.7); Neutrophils Percent Auto 91.4 % (45.5-73.1); Platelet Count Result 159 k/mm3 (150-375); Red Blood Count 4.36 M/mm3 (4.2-5.4); Red Cell Distribution Width 13.6 % (11.5-14.5); White Blood Count 9.4 K/mm3 (4.5-10.0)
[2019-09-23] MEDS: FAMOTIDINE 10 MG TABLET PO (08:58)
[2019-09-23] MEDS: FUROSEMIDE 20 MG TABLET PO (08:58)
[2019-09-23] MEDS: CELECOXIB 100 MG CAPSULE PO (08:58)
[2019-09-23] MEDS: DICYCLOMINE HCL 10 MG CAPSULE 20 MG PO ×2 (08:58→16:27)
[2019-09-23] MEDS: OPTI-GEN TAB 1 TABLET PO ×2 (08:59→16:27)
[2019-09-23] MEDS: CHOLECALCIFEROL 1,000 UNIT TABLET 5000 UNITS PO (08:59)
--- NOTE | 2019-09-23 12:59 | PC.NURSE ---
This patient, Belinda Black, was transferred to [3m/s 328 ] on 09/23/19 at 1245. Personal belongings sent with patient. Belongings list checked and signed with receiving [ 3ms 2 bags, and phone]. Report given to [ Prosper PENA]. Appropriate documentation sent with patient.
[2019-09-23 15:26] LABS: Blood Urea Nitrogen 31 mg/dL (7-17); Carbon Dioxide 39 mmol/L (22-30); Chloride 89 mmol/L (98-107); Estimated CRCL calculation 66 ml/min; Estimated Glomerular Filt Rate > 60; Glucose 290 mg/dL (65-105); Potassium 4.4 mmol/L (3.4-5.0); Sodium 131 mmol/L (137-145)
--- NOTE | 2019-09-23 15:31 | PM.IMPN ---
Progress Note: A&P Assessment and Plan (1) Chronic respiratory failure with hypoxia and hypercapnia: Code(s): J96.11 - Chronic respiratory failure with hypoxia; J96.12 - Chronic respiratory failure with hypercapnia Status: Acute Assessment and Plan: continue oxygen. Continue with Solu-Medrol. Continue with inhalers. Patient is being tested for COVID 19 at this time. (2) Elevated troponin: Code(s): R79.89 - Other specified abnormal findings of blood chemistry Status: Acute Assessment and Plan: Her 1st troponin was slightly elevated. The 2nd 1 was negative. 3rd negative. (3) Chronic diastolic (congestive) heart failure: Code(s): I50.32 - Chronic diastolic (congestive) heart failure Status: Chronic Assessment and Plan: Continue with patient's Lasix (4) Obstructive sleep apnea: Code(s): G47.33 - Obstructive sleep apnea (adult) (pediatric) Status: Acute Assessment and Plan: Encouraged the patient to use her CPAP machine. (5) HTN (hypertension): Code(s): I10 - Essential (primary) hypertension Status: Acute Assessment and Plan: 200/ 100, Bp extremely high, pt given iv lasix, iv solumedrol dosage decreased Subjective Date/time seen: 09/23/19 15:31 Interval history: 79 year old female she has a history of COPD and obstructive sleep apnea. The patient has chronic hypoxia is on oxygen at 3 L per nasal cannula. The patient stated that she was short of breath when she woke up this morning and increase her oxygen up to 5 L per nasal cannula. She denies any fever chills. She previously was checked for COVID that was negative. The patient was just discharged from here on September 11 of this year. Being checked again for covid. Pt still sob with a cough Review of Systems Review of Systems: All systems reviewed & are unremarkable except as noted in HPI and below Respiratory: Respiratory: Reports chest congestion, Reports cough, Reports dyspnea and Reports wheezing Exam Const: General: cooperative, healthy appearing, comfortable, no acute distress, well developed, alert, awake and Physically active Nutritional Appearance: average body habitus and well nourished Orientation/consciousness: oriented to person, oriented to place, oriented to time and patient oriented x3 Limitations: no limitations Resp: Effort & Inspection: normal respiratory effort Auscultation: breath sounds absent (Greatly decreased.) Percussion: percussion normal Cardio: Palpation: normal PMI Rate: regular rate Rhythm: regular rhythm Heart sounds: S1 normal heart sound present and S2 normal heart sound present Peripheral pulses: Peripheral pulses 2+ throughout GI: Inspection: normal to inspection Auscultation: normal bowel sounds Rectal Exam: deferred Neuro: General: oriented to person, oriented to place, oriented to time and patient oriented x3 Cranial nerves: Yes Equal, round and reactive pupils present and Yes Normal hearing present Cognition (Neuro): normal cognition Speech: normal speech Gait exam (Neuro): Normal gait present Motor exam (neuro): 5/5 motor strength present throughout Sensory Exam: normal sensation Objective Data Vital Signs Vital Signs: Vital Signs - 24 hr 09/22/19 16:00 09/22/19 18:00 09/22/19 20:00 Temperature 36.6 C 36.7 C Pulse Rate 102 H 96 96 Respiratory Rate 22 H 22 H Blood Pressure 150/73 H 157/91 H Pulse Oximetry 90 92 09/22/19 21:05 09/22/19 22:00 09/23/19 00:00 Temperature 36.4 C L Pulse Rate 91 88 Respiratory Rate 19 Blood Pressure 167/79 H Pulse Oximetry 92 98 09/23/19 02:00 09/23/19 04:00 09/23/19 06:00 Temperature 36.3 C L Pulse Rate 89 86 89 Respiratory Rate 24 H Blood Pressure 195/99 H 159/70 H Pulse Oximetry 97 09/23/19 07:55 09/23/19 08:00 09/23/19 08:48 Temperature 36.4 C L Pulse Rate 93 93 Respiratory Rate 16 Blood Pressure 162/64 H Pulse Oximetry 97 84 L
[2019-09-23] MEDS: FUROSEMIDE INJ 40 MG/4 ML VIAL 20 MG IV PUSH (19:02)
[2019-09-24] VITALS (8 sets, daily range): BP systolic 142–184; BP diastolic 71–87; PULSE 90–100; RESP 18–24; TEMP 36.2–37; O2SAT 94–98
[2019-09-24] MEDS: ALBUTEROL SULFATE (*SP) AEROSOL 1 PUFF 2 PUFF INHALATION ×2 (01:55→06:47)
[2019-09-24] MEDS: methylPREDNISolone SOD SUCC 125 MG VIAL 60 MG IV PUSH ×4 (04:37→21:12)
[2019-09-24] MEDS: DICYCLOMINE HCL 10 MG CAPSULE 20 MG PO ×2 (08:52→16:20)
[2019-09-24] MEDS: CELECOXIB 100 MG CAPSULE PO (08:52)
[2019-09-24] MEDS: CHOLECALCIFEROL 1,000 UNIT TABLET 5000 UNITS PO (08:52)
[2019-09-24] MEDS: FUROSEMIDE 20 MG TABLET PO (08:53)
[2019-09-24] MEDS: OPTI-GEN TAB 1 TABLET PO ×2 (08:53→16:20)
[2019-09-24] MEDS: FAMOTIDINE 10 MG TABLET PO (08:53)
[2019-09-24] MEDS: SALINE 0.65% NAS SOLN 44 ML BTL 2 SPRAY NASAL ×2 (09:10→21:20)
[2019-09-24 16:10] LABS: SARS-CoV-2 RNA PCR Negative
--- NOTE | 2019-09-24 17:40 | PM.IMPN ---
Progress Note: A&P Assessment and Plan (1) Chronic respiratory failure with hypoxia and hypercapnia: Code(s): J96.11 - Chronic respiratory failure with hypoxia; J96.12 - Chronic respiratory failure with hypercapnia Status: Acute Assessment and Plan: Continue 3 liters oxygen. Continue with Solu-Medrol. Continue with inhalers. Patient is being tested for COVID 19 at this time. Pt can come out of isolation if covid is negative. (2) Elevated troponin: Code(s): R79.89 - Other specified abnormal findings of blood chemistry Status: Acute Assessment and Plan: Her 1st troponin was slightly elevated. The 2nd 1 was negative. 3rd negative. (3) Chronic diastolic (congestive) heart failure: Code(s): I50.32 - Chronic diastolic (congestive) heart failure Status: Chronic Assessment and Plan: Continue with patient's Lasix (4) Obstructive sleep apnea: Code(s): G47.33 - Obstructive sleep apnea (adult) (pediatric) Status: Acute Assessment and Plan: Encouraged the patient to use her CPAP machine. (5) HTN (hypertension): Code(s): I10 - Essential (primary) hypertension Status: Acute Assessment and Plan: 200/ 100, Bp extremely high yesterday, pt given iv lasix, iv solumedrol dosage decreased much better today Subjective Date/time seen: 09/24/19 17:40 Interval history: 79 year old female she has a history of COPD and obstructive sleep apnea. The patient has chronic hypoxia is on oxygen at 3 L per nasal cannula. The patient stated that she was short of breath when she woke up this morning and increase her oxygen up to 5 L per nasal cannula. She denies any fever chills. She previously was checked for COVID that was negative. The patient was just discharged from here on September 11 of this year. Being checked again for covid. Pt still sob with a cough. Pt likley here for COPD excerbation. Pt feels she is getting better Review of Systems Review of Systems: All systems reviewed & are unremarkable except as noted in HPI and below Exam Narrative: Exam Narrative: Pt is on the commode difficult to fully examine Const: General: cooperative, healthy appearing, comfortable, no acute distress, well developed, alert, awake and Physically active Nutritional Appearance: average body habitus and well nourished Orientation/consciousness: oriented to person, oriented to place, oriented to time and patient oriented x3 Limitations: no limitations Objective Data Vital Signs Vital Signs: Vital Signs - 24 hr 09/23/19 17:49 09/23/19 18:40 09/23/19 22:00 Temperature 36.9 C Pulse Rate 103 H Respiratory Rate 18 Blood Pressure 218/88 H 220/162 H Pulse Oximetry 97 95 09/23/19 23:44 09/24/19 03:30 09/24/19 05:00 Temperature 36.9 C 36.9 C 36.6 C Pulse Rate 98 100 97 Respiratory Rate 18 20 20 Blood Pressure 156/86 H 181/74 H 174/82 H Pulse Oximetry 96 95 94 09/24/19 08:37 09/24/19 10:00 09/24/19 12:27 Temperature 37.0 C Pulse Rate 97 Respiratory Rate 18 Blood Pressure 156/85 H Pulse Oximetry 95 98 95 09/24/19 14:00 Temperature 37.0 C Pulse Rate 97 Respiratory Rate 18 Blood Pressure 142/71 H Pulse Oximetry 98 Intake/Output Intake/Output: Intake & Output 09/21/19 09/22/19 09/23/19 09/24/19 23:59 23:59 23:59 23:59 Intake Total 720 1200 1030 Output Total 617 708 9060 Balance -180 350 -220 Meds/Results Medications: Active Medications Generic Name Dose Route Start Last Admin Trade Name Freq PRN Reason Stop Dose Admin Albuterol 2 puff 09/22/19 18:58 09/24/19 06:47 Proventil Hfa INHALATION 2 puff QID PRN Administration Shortness Of Breath Bismuth Subsalicylate 524 mg 09/22/19 18:58 Pepto-Bismol Chewable Tablet PO MONTHLY PRN Diarrhea Budesonide/Formoterol Fumarate 2 puff 09/22/19 20:00 09/24/19 08:38 Symbicort 160-4.5 Mcg (*Sp) Inhaler INHALATION 2 puff Q12HRT [facility] Admini
--- NOTE | 2019-09-24 17:42 | PC.NURSE ---
Called and left voicemail for Dr. Dee to inform her that the patients COVID test came back negative.
[2019-09-24] MEDS: ZOLPIDEM TARTRATE 5 MG TABLET PO (23:38)
[2019-09-25] VITALS (7 sets, daily range): BP systolic 132–160; BP diastolic 64–91; PULSE 72–98; RESP 16–24; TEMP 36.3–37.1; O2SAT 94–100
[2019-09-25] MEDS: methylPREDNISolone SOD SUCC 125 MG VIAL 60 MG IV PUSH (04:01)
[2019-09-25] MEDS: ALBUTEROL SULFATE (*SP) AEROSOL 1 PUFF 2 PUFF INHALATION ×2 (05:52→08:32)
[2019-09-25] MEDS: DICYCLOMINE HCL 10 MG CAPSULE 20 MG PO ×2 (08:20→16:48)
[2019-09-25] MEDS: CELECOXIB 100 MG CAPSULE PO (08:20)
[2019-09-25] MEDS: FAMOTIDINE 10 MG TABLET PO (08:20)
[2019-09-25] MEDS: CHOLECALCIFEROL 1,000 UNIT TABLET 5000 UNITS PO (08:20)
[2019-09-25] MEDS: FUROSEMIDE 20 MG TABLET PO (08:21)
[2019-09-25] MEDS: OPTI-GEN TAB 1 TABLET PO ×2 (08:21→16:48)
[2019-09-25] MEDS: predniSONE 40 MG, predniSONE 10 MG 50 MG PO (10:40)
--- NOTE | 2019-09-25 16:45 | PM.DS ---
DS: Admitting Diagnosis Admitting Diagnosis Admitting Diagnosis: Chronic respiratory failure with hypoxia DS: Discharge Diagnosis Discharge Diagnosis (1) Chronic respiratory failure with hypoxia and hypercapnia: Code(s): J96.11 - Chronic respiratory failure with hypoxia; J96.12 - Chronic respiratory failure with hypercapnia Status: Acute Assessment and Plan: Continue 3 liters oxygen. Continue with Solu-Medrol. Continue with inhalers. Patient is being tested for COVID 19 at this time. Pt can come out of isolation if covid is negative. (2) Elevated troponin: Code(s): R79.89 - Other specified abnormal findings of blood chemistry Status: Acute Assessment and Plan: Her 1st troponin was slightly elevated. The 2nd 1 was negative. 3rd negative. (3) Chronic diastolic (congestive) heart failure: Code(s): I50.32 - Chronic diastolic (congestive) heart failure Status: Chronic Assessment and Plan: Continue with patient's Lasix (4) Obstructive sleep apnea: Code(s): G47.33 - Obstructive sleep apnea (adult) (pediatric) Status: Acute Assessment and Plan: Encouraged the patient to use her CPAP machine. (5) HTN (hypertension): Code(s): I10 - Essential (primary) hypertension Status: Acute Assessment and Plan: 200/ 100, Bp extremely high yesterday, pt given iv lasix, iv solumedrol dosage decreased much better today DS: Summary Hospital Course Reason for hospitalization: Belinda Black is a 79 year old female she has a history of COPD and obstructive sleep apnea. The patient has chronic hypoxia is on oxygen at 3 L per nasal cannula. The patient stated that she was short of breath when she woke up this morning and increase her oxygen up to 5 L per nasal cannula. She denies any fever chills. She previously was checked for COVID that was negative. The patient was just discharged from here on September 11 of this year. Patient had been on oral steroids after being weaned off of IV steroids. Patient uses nebulizers at home. The patient has a CPAP machine but admits that she does not use it every night. Patient had been on Pulmicort nebs while she was here. At 3 L per nasal cannula. The patient was given nebulizer treatments in the emergency room and given Solu-Medrol. She was also given a chewable aspirin in the emergency room. For COVID and is in isolation in ICU as a IMU patient. Patient's CO2 is 65.4 and her pH is normal 7.4. Patient CO2 typically ranges in the 50s to 60s. The patient typically sees Dr. Sophia Macedo. Date of service 09/22/2019 Hospital Course: Continue 3 liters oxygen. Continue with Solu-Medrol. Continue with inhalers. Patient is being tested for COVID 19 at this time. Pt can come out of isolation, Patient COVID-19 is negative, patient is clinically stable, feels she is at baseline and would like to go home, will discharge patient on tapering dose of prednison, will continue her home oxygen and follow up with her pulmologist as scheduled. Status at Discharge Functional status at discharge: uses cane/walker Overall status at discharge: patient is back to baseline Time Spent with Patient Time attestation: Total time spent providing and/or coordinating discharge services: Patient was seen and examined at the time of the discharge Condition at discharge is stable Code status: Full code. Time spent preparing discharge summary, discharge medications, discussing discharge planning with ed case manager and patient is 35 minutes. Time spent: Greater than 30 minutes Exam Narrative: Exam Narrative: Moderately obese Const: General: comfortable and no acute distress HENMT: General nose exam: Normal nares present Eyes: General: appearance normal, both eyes and all related structures Sclera: sclerae normal Neck: Neck: supple Resp: Other: Bilateral fair air entry with wheezing Cardio: Rate: regular rate Rhythm: regular rhythm GI
--- NOTE | 2019-09-25 18:12 | PC.NURSE ---
Pt originally had concerns about leaving due to late discharge. After discussing with ER care coordination, pt okay to discharge after all.
== END 2019-09-25 19:15 | disposition home health service (06) | DRG 189 ==
LOC: ANHED 10:35 → ANHICU 11:25 → ANH3MEDSUR 09-23 12:58
PROVIDERS: Nurse Practitioner; Admitting Provider Family Medicine; Emergency Provider Emergency Medicine; PCP Internal Medicine; Visit Provider Family Medicine
DX: J96.21 Acute and chronic respiratory failure with hypoxia (principal); J44.1 Chronic obstructive pulmonary disease with (acute) exacerbation; I50.32 Chronic diastolic (congestive) heart failure; J96.22 Acute and chronic respiratory failure with hypercapnia; I11.0 Hypertensive heart disease with heart failure; G47.33 Obstructive sleep apnea (adult) (pediatric); Z99.81 Dependence on supplemental oxygen; G89.29 Other chronic pain; K21.9 Gastro-esophageal reflux disease without esophagitis; Z87.891 Personal history of nicotine dependence; E55.9 Vitamin D deficiency, unspecified; I35.0 Nonrheumatic aortic (valve) stenosis; Z20.828 Contact with and (suspected) exposure to other viral communicable diseases; R79.89 Other specified abnormal findings of blood chemistry
CPT/HCPCS: 36415; 36600; 71045; 80048; 80053; 82805; 83605; 83880; 84484; 85025; 85610; 85730; 87040; 87635; 93005; 94002; 94640; 96374; 96375; 96376; 97161; 99285; A9270; C9803; G0378; J1940; J2930; J7512; U0003

== ENCOUNTER 2019-10-04 07:38 | Inpatient (IN) | payer MEDICARE, SELFPAY ==
[2019-10-04] VITALS (26 sets, daily range): BP systolic 116–162; BP diastolic 62–114; PULSE 75–119; RESP 16–31; TEMP 36.3–36.8; O2SAT 89–100; BMI 30.9
--- NOTE | ~2019-10-04 | US_ITS ---
EXAMINATION: US thyroid DATE: 10/05/2019 16:46 INDICATION: Thyroid nodule TECHNIQUE: Multiple ultrasound images of the thyroid were obtained. COMPARISON: None. FINDINGS: The right thyroid lobe measures 3.8 x 2.6 x 1.9 cm. The left thyroid lobe measures 2.5 x 1.0 x 1.1 c m. The thyroid isthmus measures 3 mm in thickness. 2.4 x 2.0 x 1.4 cm wider than tall solid isoechoi c nodule with smooth margins and without echogenic foci (TI-RADS 3, mildly suspicious , FNA if >=2.5 cm, annual followup is >1.5 cm) in the right thyroid lobe. There is normal echotexture, echogenicity and vascular flow throughout the thyroid gland. IMPRESSION: 1. Mildly suspicious 2.4 cm TI RADS 3 solid right thyroid nodule for which annual ultrasound follow-u p is recommended. Reviewed, dictated and finalized at location A. IMPRESSION: 1. Mildly suspicious 2.4 cm TI RADS 3 solid right thyroid nodule for which brent al ultrasound follow-up is recommended.
--- NOTE | ~2019-10-04 | US_ITS ---
EXAMINATION: US venous doppler [facility] DATE: 10/08/2019 11:34 INDICATION: Shortness of breath and lower limb pain TECHNIQUE: Grayscale ultrasound images without and with compression and Doppler ultrasound images of the bilateral lower extremity veins were obtained. COMPARISON: 09/11/2019 FINDINGS: The visualized portions of right common femoral vein, profunda (deep) femoral vein, femoral vein, pop liteal vein, posterior tibial veins, peroneal veins, gastrocnemius vein and greater saphenous vein ou tflow are patent. The visualized portions of left common femoral vein, profunda femoral vein, femoral vein, popliteal v ein, posterior tibial veins, peroneal veins, gastrocnemius vein and greater saphenous vein outflow ar e patent. IMPRESSION: 1. No deep venous thrombosis in either lower limb. Reviewed, dictated and finalized at location A.
--- NOTE | ~2019-10-04 | XR_ITS ---
EXAMINATION: XR chest 1V portable DATE: 10/04/2019 08:43 INDICATION: Shortness of breath. TECHNIQUE: A single frontal view of the chest was obtained. COMPARISON: Chest single view 09/22/2019, chest CT 08/19/2017 FINDINGS: The chest demonstrates clear lungs without pneumonia, pleural effusion, or pneumothorax. Th e heart size is normal. IMPRESSION: 1. No acute cardiopulmonary disease. Reviewed, dictated and finalized at location A.
--- NOTE | ~2019-10-04 | CT_ITS ---
EXAMINATION: CTA chest PE protocol DATE: 10/04/2019 11:03 INDICATION: Chest pain. TECHNIQUE: Computed tomography angiography (CTA) of the chest was performed with 100 mL Omnipaque-350 intravenous contrast timed to evaluate the pulmonary arteries. Coronal maximum intensity projection 3D-reconstructions were created by the technologist. Automated exposure control and iterative reconst ruction technique were employed. The dose-length product was 981.93 mGy-cm. COMPARISON: Chest CT 08/19/2017 FINDINGS: There is moderate emphysema. Motion artifact is noted. There is mild atelectasis bilaterall y. A calcified right lung nodule and calcified right hilar lymph nodes are consistent with old granul omatous disease. No pleural effusion. There is a 2.5 cm nodule in right thyroid lobe. The heart size is normal. There are calcifications of the aortic valve. No pericardial effusion. There is no pulmona ry embolus. There is cortical thinning of left kidney. There is an 11 mm cyst in the liver. There is severe thoracolumbar spondylosis. There are changes of posterior fusion procedure in lumbar spine. IMPRESSION: 1. No pulmonary embolus. Sensitivity is moderately decreased by motion artifact. 2. Moderate emphysema. 3. Thyroid nodule. Consider thyroid ultrasound for risk stratification. Reviewed, dictated and finalized at location A. IMPRESSION: 1. No pulmonary embolus. Sensitivity is moderately decreased by motion artifact . 2. Moderate emphysema. 3. Thyroid nodule. Consider thyroid ultrasound for risk stratification.
--- NOTE | 2019-10-04 07:46 | PC.NURSE ---
Pt taken off of ems cpap and placed back at 3L/NC per order Dr. Carter. Pt continues to deny chest pain
--- NOTE | 2019-10-04 07:52 | ECG_ITS ---
Measurements Intervals [place] Rate: 119 P: 81 MO: 131 QRS: 12 QRSD: 89 T: 70 QT: 304 QTc: 428 Interpretive Statements SINUS TACHYCARDIA DELAYED PRECORDIAL R/S TRANSITION CONSIDER INFERIOR INFARCT, AGE INDETERMINATE BASELINE ARTIFACT- I, III, AVR, AVL, AVF, V1 ABNORMAL ECG Electronically Signed On 10-04-2019 8:36:23 CDT by Moiz Melton D.O.
--- NOTE | 2019-10-04 07:52 | ED.SOB ---
HPI - SOB/Dyspnea General Chief Complaint: Shortness of Breath/Dyspnea Stated Complaint: SOB/CP Time Seen by Provider: 10/04/19 07:48 History of Present Illness HPI Narrative: 79 yo female w/ h/o COPD, CHF BIBEMS from home for chest pain and SOB. She says that she was having 10/10 substernal chest pain. The pain resolved prior to her arrival here. She continues to be SOB. She is on 3 L NC at baseline. No fever. History limited by clinical condition Related Data Home Medications Medication Instructions Recorded Confirmed celecoxib 100 mg capsule 100 mg PO BID 03/16/19 10/04/19 cholecalciferol (vitamin D3) 125 5,000 unit PO DAILY 03/16/19 10/04/19 mcg (5,000 unit) tablet docusate sodium 100 mg capsule 100 mg PO BID PRN 03/16/19 10/04/19 famotidine 10 mg tablet 10 mg PO DAILY 03/16/19 10/04/19 fexofenadine 60 mg-pseudoephedrine 1 tablet PO Q12H PRN 03/16/19 10/04/19 ER 120 mg tablet,ext.release,12 hr oxycodone-acetaminophen 10 mg-325 1 tablet PO Q6H PRN tablet 03/16/19 10/04/19 mg tablet Pepto-Bismol 2 tablet PO MONTHLY PRN 07/12/19 10/04/19 PreserVision AREDS-2 1 tablet PO BID 07/12/19 10/04/19 budesonide-formoterol [Symbicort] 2 puff INHALATION Q12H 07/12/19 10/04/19 sodium chloride [[place] Nasal] 2 spray INTRANASAL PRN PRN 07/12/19 10/04/19 albuterol sulfate [ProAir HFA] 2 puff INHALATION QID PRN 09/05/19 10/04/19 zolpidem 5 mg PO HS PRN 09/05/19 10/04/19 rsczlbnzsh-xfxpvbumseomi-ashw 1 tablet PO Q6H PRN 10/04/19 10/04/19 triamterene-hydrochlorothiazid 1 cap PO DAILY 10/04/19 10/04/19 Allergies Allergy/AdvReac Type Severity Reaction Status Date / Time Sulfa (Sulfonamide Allergy Unknown THROAT, Unverified 10/04/19 09:24 Antibiotics) TONGUE SWELLING,Unknown aspirin Allergy Other Verified 10/04/19 09:24 Review of Systems Review of Systems: Narrative: ROS limited by clinical condition Constitutional: Constitutional: Denies fever(s) Cardiovascular: Cardiovascular: Reports chest pain Respiratory: Respiratory: Reports dyspnea Gastrointestinal: Gastrointestinal: Denies abdominal pain Musculoskeletal: Musculoskeletal: Reports back pain Neurologic: Denies syncope PMFSH Past Medical History Medical History Abdominal bruit renal US negative for stenosis Aortic stenosis Mild on echocardiogram from October 2018 Borderline diabetic Cataracts, bilateral Maturing cataracts bilaterally Chronic diastolic (congestive) heart failure Echocardiogram October 2018 demonstrated normal left ventricular systolic function with EF of 65-70% grade 1 diastolic dysfunction mild aortic stenosis with a normal RVSP of 34 Chronic pain syndrome With chronic back, bilateral shoulder, and left knee pain Chronic respiratory failure with hypoxia and hypercapnia COPD with emphysema Dependence on supplemental oxygen Essential (primary) hypertension Fractured coccyx GERD (gastroesophageal reflux disease) History of angina History of tobacco abuse Insomnia Liver mass 21 mm likely benign noted on imaging for 2017 Obstructive sleep apnea on CPAP Non compliant Thyroid nodule On CT scan from July 2017 Ulcerative colitis Venous stasis dermatitis of both lower extremities Vitamin D deficiency Surgical History Surgical History History of total right knee replacement January 2012 History of ventral hernia repair With abdominoplasty Hx of arthroscopy of left knee 2000 Hx of spinal surgery Lumbar surgery 2001 Hx of tonsillectomy Family History Family History Mother Diabetes mellitus Father COPD (chronic obstructive pulmonary disease) Sibling Lung disease Brother Social History Social History Social History: The patient lives at home with her . She has 3 children. She was
[2019-10-04 08:07] LABS: Basophils Percent Auto 0.1 % (0.2-1.2); Eosinophils Absolute Auto 0.9 K/mm3 (0-0.3); Eosinophils Percent Auto 6.7 % (0-4.4); Hematocrit 39.5 % (37.0-47.0); Hemoglobin 12.3 g/dL (12.0-15.0); Immature Granulocyte Absolute 0.09 K/mm3 (0.00-0.031); Immature Granulocyte Percent A 0.7 % (0-0.5); Lymphocytes Absolute Auto 0.81 K/mm3 (0.9-3.2); Mean Corpuscular HGB Conc 31.1 g/dl (32-36); Mean Corpuscular Hemoglobin 28.3 pg (26-34); Mean Corpuscular Volume 90.8 fl (80-100); Mean Platelet Volume 9.5 fl (7.4-10.4); Monocytes Absolute Auto 1.4 K/mm3 (0.1-0.6); Neutrophils Absolute Auto 10.4 K/mm3 (1.3-6.7); Neutrophils Percent Auto 76.5 % (45.5-73.1); Platelet Count Result 236 k/mm3 (150-375); Red Blood Count 4.35 M/mm3 (4.2-5.4); Red Cell Distribution Width 13.9 % (11.5-14.5); White Blood Count 13.6 K/mm3 (4.5-10.0)
--- NOTE | 2019-10-04 08:11 | PC.NURSE ---
Note spo2 84% on 3L/NC. O2 increased to 6L/NC.
[2019-10-04] MEDS: FUROSEMIDE INJ 40 MG/4 ML VIAL IV PUSH ×2 (08:16→21:52)
[2019-10-04] MEDS: NITROGLYCERIN OINTMENT 1 INCH DOSE TRANSDERM (08:17)
[2019-10-04 08:19] LABS: Blood Urea Nitrogen 19 mg/dL (7-17); Calcium 9.5 mg/dL (8.4-10.2); Carbon Dioxide > 40 mmol/L (22-30); Chloride 86 mmol/L (98-107); Estimated Glomerular Filt Rate > 60; Glucose 179 mg/dL (65-105); INR 0.9; Potassium 3.9 mmol/L (3.4-5.0); Prothrombin Time 11.9 Seconds (11.1-14.7); Sodium 133 mmol/L (137-145)
[2019-10-04 08:21] LABS: Partial Thromboplastin Time 24.4 SECONDS (22.3-36.8)
[2019-10-04 08:30] LABS: NT Pro B Type Natriuretic Pept 1400 PG/ML (5-100); Troponin I 0.068 ng/mL (0.000-0.034)
[2019-10-04 08:38] LABS: Alveolar/Arterial O2 Gradient 162.6 mmHg; Base Excess ABG 11.5 mEq/l (+/-2.0); Carboxyhemoglobin 1.2 % THb (0-2.0); Device NASAL CANNULA; Fractional Inspired Oxygen 40 %; HCO3 ABG 37.5 mEq/l (22.0-26.0); Methemoglobin ABG 0.3 %THb (0-1.5); Modified Allen's Test Pass; Oxygen Content ABG 16.3 %vol (16.0-22.0); Oxygen Saturation ABG 91.2 % (95.0-100.0); Oxyhemoglobin 89.9 % THb (90.0-100.0); PCO2 ABG 55.1 mmHg (35.0-45.0); PO2 ABG 59.2 mmHg (80.0-100.0); PO2 FiO2 Ratio Arterial Blood 1.48 %; Reduced Hemoglobin 8.6 %THb (0-5.0); Site Drawn RIGHT RADIAL; Total Hemoglobin 12.9 g/dL (12.0-18.0); pH ABG 7.451 (7.350-7.450)
[2019-10-04] MEDS: METOPROLOL TARTRATE INJ 5 MG/5 ML VIAL IV PUSH (08:42)
--- NOTE | 2019-10-04 08:46 | PC.NURSE ---
After ABG pt's o2 decreased back to 3L/NC per respiratory.
--- NOTE | 2019-10-04 09:25 | PC.NURSE ---
Attempt to confirm medications with patient now that is breathing easier, pt reports I don't know, they're all the same . Unable to confirm at this time.
--- NOTE | 2019-10-04 09:26 | PC.NURSE ---
Pt is diuresing from lasix. Spo2 remains 88% on 3L/nc. Dr. Carter made aware.
--- NOTE | 2019-10-04 10:29 | PC.NURSE ---
Multiple attempts per this RN for an acceptable IV for PE study. Per CT must be in an extremity and at least a 20guage. Mary Perez RN, called for assistance with difficult stick.
--- NOTE | 2019-10-04 10:38 | PC.NURSE ---
Mary Perez RN, at bedside to attempt IV start
--- NOTE | 2019-10-04 10:53 | PC.NURSE ---
IV obtained per Mary Perez RN, with ultrasound. Pt to CT via stretcher to continue PE study.
--- NOTE | 2019-10-04 11:11 | PC.NURSE ---
Report to BECKY Canales, to continue care.
--- NOTE | 2019-10-04 11:53 | PCRCNOTE ---
Hold [facility] per Dr Carter.
--- NOTE | 2019-10-04 14:01 | ADMGEN ---
This patient, Belinda Black, was admitted to Intensive Care Unit-1. Patient/family oriented to hospital policies and general routines including ID bracelet, bed and alarms, visiting hours, pain management, procedures, bathroom and other care routines, personal items, smoking policy, room service/diet, and visiting hours. Valuables list has been completed. Information on how to activate the Rapid Response Team has been discussed. Patient/Family are encouraged to report perceived risks to care and to ask questions if they do not understand what they are told or what they should do.
[2019-10-04] MEDS: ALBUTEROL SULFATE NEB 2.5 MG/0.5 ML INH 5 MG INHALATION ×2 (15:00→20:52)
[2019-10-04] MEDS: IPRATROPIUM BR 0.02% INH SOLN 0.5 MG/2.5 ML VIAL INHALATION ×2 (15:00→20:52)
--- NOTE | 2019-10-04 15:15 | PM.IMHP ---
H&P: HPI History of Present Illness Chief complaint: Shortness of breath. Narrative: Belinda Black is a 79-year-old female with medical history significant for COPD, chronic hypoxic and hypercarbic respiratory failure, obstructive sleep apnea noncompliant with PAP therapy, diastolic congestive heart failure, and several other comorbidities who presented to the emergency department earlier this morning via EMS from home for evaluation of shortness of breath. This will be her 4th admission to the hospital since August 08, 2019 and is noted that she has had frequent visits to the emergency department for shortness of breath due to either COPD or congestive heart failure exacerbations. From September 21 to September 24 with COPD exacerbation, and she was discharged with a prednisone taper. In any event, she reports increasing dyspnea on lesser and lesser exertion over the past 3 weeks and has been sleeping poor due to such, but it sounds as though she has chronic orthopnea and tends to sleep in the recliner at home. She is compliant with her inhalers and intermittently uses nebulizers, which has provided her lesser and lesser benefit. Last evening she developed midsternal chest discomfort that she has a difficult time describing, but reported to EMS that her pain was 10/10. She was given sublingual nitroglycerin with some improvement. At the time my evaluation, she is having no chest pain whatsoever, and in fact she was asleep when I entered the room. She does not feeling more short of breath at this time than she does at baseline. She denies fever, chills, and sweats. No pleuritic pain. She denies nausea and vomiting. No sweats. Review of Systems Review of Systems: Narrative: Twelve systems were reviewed with pertinent positives and negatives as per HPI. She denies sick contacts and recent travel., or diarrhea. She denies significant lower extremity edema. Except as documented, all other systems were reviewed and are negative. [facility] Past Medical History Medical History (Updated 10/04/19 @ 18:17 by Belem Simmons PA-C) Abdominal bruit Renal US negative for stenosis 08/2019. Aortic stenosis Mild on echocardiogram from October 2018. Borderline diabetic Cataracts, bilateral Maturing cataracts bilaterally. Chronic diastolic (congestive) heart failure Echocardiogram October 2018 demonstrated normal left ventricular systolic function with EF of 65-70% grade 1 diastolic dysfunction mild aortic stenosis with a normal RVSP of 34. Chronic hyponatremia Chronic pain syndrome With chronic back, bilateral shoulder, and left knee pain. Chronic respiratory failure with hypoxia and hypercapnia COPD with emphysema Dependence on supplemental oxygen On 3 liters nasal cannula. Essential (primary) hypertension Fractured coccyx GERD (gastroesophageal reflux disease) History of angina History of tobacco abuse Insomnia Liver mass 21 mm likely benign noted on imaging for 2017. Obstructive sleep apnea Noncompliant with CPAP therapy at home. Thyroid nodule On CT scan from July 2017. Ulcerative colitis Venous stasis dermatitis of both lower extremities Vitamin D deficiency Surgical History Surgical History (Updated 10/04/19 @ 18:10 by Belem Simmons PA-C) History of arthroscopy of left knee (~2000) History of lumbar surgery (~2001) History of tonsillectomy History of total right knee replacement (~01/2012) History of ventral hernia repair With abdominoplasty. Family History Family History Mother Diabetes mellitus Father COPD (chronic obstructive pulmonary disease) Sibling Lung disease Brother Social History Social History (Updated 10/04/19 @ 18:11 by Belem Simmons PA-C) Social History: The patient lives at home with her of 60 years. 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 She has a 50 pack year smoking history and quit in 2007. No alcohol or illicit substan
[2019-10-04] MEDS: predniSONE 20 MG TABLET 60 MG PO (19:57)
[2019-10-04] MEDS: OPTI-GEN TAB 1 TABLET PO (19:58)
[2019-10-04 20:20] LABS: Troponin I 0.066 ng/mL (0.000-0.034)
[2019-10-04 23:35] LABS: Troponin I 0.067 ng/mL (0.000-0.034)
[2019-10-05] VITALS (17 sets, daily range): BP systolic 103–169; BP diastolic 77–95; PULSE 97–120; RESP 14–25; TEMP 36.2–37; O2SAT 93–99
[2019-10-05] MEDS: IPRATROPIUM BR 0.02% INH SOLN 0.5 MG/2.5 ML VIAL INHALATION ×4 (01:59→19:28)
[2019-10-05] MEDS: ALBUTEROL SULFATE NEB 2.5 MG/0.5 ML INH 5 MG INHALATION ×4 (01:59→19:28)
[2019-10-05 04:54] LABS: Hematocrit 38.7 % (37.0-47.0); Hemoglobin 12.5 g/dL (12.0-15.0); Mean Corpuscular HGB Conc 32.3 g/dl (32-36); Mean Corpuscular Hemoglobin 28.2 pg (26-34); Mean Corpuscular Volume 87.2 fl (80-100); Mean Platelet Volume 9.6 fl (7.4-10.4); Platelet Count Result 240 k/mm3 (150-375); Red Blood Count 4.44 M/mm3 (4.2-5.4); Red Cell Distribution Width 14.1 % (11.5-14.5); White Blood Count 10.7 K/mm3 (4.5-10.0)
[2019-10-05 05:15] LABS: Alanine Aminotransferase 49 U/L (4-35); Albumin Level 3.6 g/dL (3.5-5.1); Alkaline Phosphatase 74 U/L (38-126); Aspartate Amino Transferase 30 U/L (14-36); Bilirubin,Total 0.6 mg/dL (0.2-1.3); Blood Urea Nitrogen 22 mg/dL (7-17); Calcium 9.3 mg/dL (8.4-10.2); Carbon Dioxide > 40 mmol/L (22-30); Chloride 80 mmol/L (98-107); Estimated CRCL calculation 77 ml/min; Estimated Glomerular Filt Rate > 60; Glucose 249 mg/dL (65-105); Magnesium 1.6 mg/dL (1.6-2.3); Potassium 3.4 mmol/L (3.4-5.0); Sodium 130 mmol/L (137-145)
[2019-10-05] MEDS: FUROSEMIDE INJ 40 MG/4 ML VIAL IV PUSH ×2 (08:04→20:24)
[2019-10-05] MEDS: ENOXAPARIN 40 MG/0.4 ML SYRINGE SUB-Q (08:04)
[2019-10-05] MEDS: FAMOTIDINE 10 MG TABLET PO (08:04)
[2019-10-05] MEDS: CHOLECALCIFEROL 1,000 UNIT TABLET 5000 UNITS PO (08:04)
[2019-10-05] MEDS: OPTI-GEN TAB 1 TABLET PO ×2 (08:04→20:24)
[2019-10-05] MEDS: DICYCLOMINE HCL 10 MG CAPSULE 20 MG PO ×2 (08:04→17:30)
[2019-10-05] MEDS: predniSONE 20 MG TABLET 40 MG PO (08:05)
[2019-10-05] MEDS: TRIAMTERENE 37.5 MG/HCTZ 25 MG (MAXZIDE) TABLET 1 TAB PO (08:05)
[2019-10-05] MEDS: DOCUSATE SODIUM 100 MG CAPSULE PO (09:43)
[2019-10-05] MEDS: polyethylene glycoL 3350 17 GM POWD.PACK PO (11:41)
[2019-10-05 12:55] LABS: SARS-CoV-2 RNA PCR Negative
--- NOTE | 2019-10-05 14:25 | PC.NURSE ---
Pt transferred to 323 via wheelchair. Oxygen on with no issues noted. Belonging checked and all items transferred with patient. Report called to BECKY Jeffrey @ [phone]
--- NOTE | 2019-10-05 14:35 | PC.NURSE ---
This patient, Belinda Black, was received from [ICU ] on 10/05/19 at 1430. Report received from BECKY Dill. Personal belongings list checked and signed. Patient/family oriented to unit policies and routines
--- NOTE | 2019-10-05 16:33 | PM.IMPN ---
Progress Note: A&P Assessment and Plan (1) Acute and chronic respiratory failure: Code(s): J96.20 - Acute and chronic respiratory failure, unspecified whether with hypoxia or hypercapnia Status: Acute Assessment and Plan: Secondary to COPD exacerbation. COVIDis negative (2) COPD exacerbation: Code(s): J44.1 - Chronic obstructive pulmonary disease with (acute) exacerbation Status: Acute Assessment and Plan: Continue maintenance inhalers. Schedule nebulizers and prednisone. (3) Chest pain: Code(s): R07.9 - Chest pain, unspecified Status: Acute Assessment and Plan: Echocardiogram awating (4) Obstructive sleep apnea: Code(s): G47.33 - Obstructive sleep apnea (adult) (pediatric) Status: Acute Assessment and Plan: Noncompliant with PAP therapy, which may be some of the problem. (5) Chronic diastolic (congestive) heart failure: Code(s): I50.32 - Chronic diastolic (congestive) heart failure Status: Chronic Assessment and Plan: She is clinically compensated. (6) Chronic hyponatremia: Code(s): E87.1 - Hypo-osmolality and hyponatremia Status: Acute Assessment and Plan: Sodium is stable (7) Essential (primary) hypertension: Code(s): I10 - Essential (primary) hypertension Status: Acute Assessment and Plan: Continue antihypertensives and monitor daily. Subjective Date/time seen: 10/05/19 16:33 Interval history: Frequent flyer for COPD excerbation Pt transfered out of icu, pt is covid negative Review of Systems Respiratory: Respiratory: Reports cough, Reports dyspnea and Reports wheezing Exam Const: General: cooperative and healthy appearing; No in distress Nutritional Appearance: overweight Orientation/consciousness: oriented to person Objective Data Vital Signs Vital Signs: Vital Signs - 24 hr 10/04/19 18:00 10/04/19 20:00 10/04/19 20:54 Temperature 36.8 C Pulse Rate 75 113 H 104 H Respiratory Rate 20 24 H Blood Pressure 161/95 H Pulse Oximetry 97 10/04/19 20:55 10/04/19 21:08 10/04/19 22:00 Temperature Pulse Rate 101 H 113 H Respiratory Rate 20 Blood Pressure Pulse Oximetry 93 10/05/19 00:00 10/05/19 02:00 10/05/19 02:10 Temperature 37.0 C Pulse Rate 108 H 108 H 115 H Respiratory Rate 20 25 H 22 H Blood Pressure 169/77 H Pulse Oximetry 97 10/05/19 04:00 10/05/19 06:00 10/05/19 08:00 Temperature 36.5 C 36.2 C L Pulse Rate 112 H 97 97 Respiratory Rate 20 14 Blood Pressure 103/77 143/85 H Pulse Oximetry 96 96 10/05/19 08:13 10/05/19 08:46 10/05/19 08:48 Temperature Pulse Rate 116 H Respiratory Rate 19 Blood Pressure Pulse Oximetry 98 97 10/05/19 08:58 10/05/19 10:00 10/05/19 13:47 Temperature Pulse Rate 114 H 118 H 120 H Respiratory Rate 21 H 22 H Blood Pressure Pulse Oximetry 10/05/19 13:51 10/05/19 14:30 Temperature 36.9 C Pulse Rate 119 H 114 H Respiratory Rate 22 H 22 H Blood Pressure 139/94 H Pulse Oximetry 93 Intake/Output Intake/Output: Intake & Output 10/02/19 10/03/19 10/04/19 10/05/19 23:59 23:59 23:59 23:59 Intake Total 480 1020 Output Total 950 1500 Balance -470 -480 Meds/Results Medications: Active Medications Generic Name Dose Route Start Last Admin Trade Name Freq PRN Reason Stop Dose Admin Albuterol 5 mg 10/04/19 14:00 10/05/19 13:47 Albuterol Sulf Neb 2.5mg/0.5ml INHALATION 5 mg Q6HRT RAISSA Administration Budesonide/Formoterol Fumarate
--- NOTE | 2019-10-05 18:23 | ECHO_ITS ---
Patient Info Name: Belinda Black Age: 79 years : 1940 Gender: Female Ht: 68 in Wt: 203 lbs BSA: 2.13 m2 HR: 110 bpm BP: 103 / 77 mmHg Technical Quality: Fair Exam Date: 10/05/2019 2:47 PM Exam Location: [facility] Patient Status: Inpatient Admit Date: 10/04/2019 Staff Ordering Physician: Belem Simmons PA-C Proposal Consultant: Andrzej Segura RDCS, RT Attending Provider: Mehul Massey MD Referring Physician: Iris TAYLOR; Exam Type: CA echo doppler color flow Study Info Indications I50.9 - Heart failure, unspecified Complete two-dimensional, color flow and Doppler transthoracic echocardiogram is performed. Summary 1. Left ventricular chamber dimension is normal. 2. Left ventricular systolic function is normal, estimated at 55-60%. 3. The left ventricular diastolic function is grade I diastolic dysfunction. 4. E/e' 12 is mildly elevated. 5. Global longitudinal strain is abnormal at -12.1%. 6. The aortic valve is not well visualized. 7. There is severe aortic valve sclerosis. 8. There is mild aortic valve stenosis based on a peak velocity of 240 cm/s, mean gradient of 14 mmHg, and aortic valve area of 1.6 cm2. 9. The mitral valve has moderately calcified annulus. Left Ventricle E/e' 12 is mildly elevated. Global longitudinal strain is abnormal at -12.1%. Left ventricular chamber dimension is normal. Left ventricular systolic function is normal, estimated at 55-60%. The left ventricular diastolic function is grade I diastolic dysfunction. Right Ventricle Right ventricular chamber dimension is normal. Right ventricular systolic function is normal. Left Atria Left atrial chamber dimension is normal. Right Atria Right atrial chamber dimension is normal. Aortic Valve There is mild aortic valve stenosis based on a peak velocity of 240 cm/s, mean gradient of 14 mmHg, and aortic valve area of 1.6 cm2. Cannot determine number of aortic valve leaflets. The aortic valve is not well visualized. There is severe aortic valve sclerosis. There is no aortic valve regurgitation. Pulmonic Valve There is no pulmonic regurgitation. Mitral Valve The mitral valve has moderately calcified annulus. There is no mitral valve stenosis. There is no mitral valve regurgitation. Tricuspid Valve There is no tricuspid valve regurgitation. Pericardium/Pleural There is no pericardial effusion. Inferior Vena Cava Normal inferior vena cava with >50% collapse upon inspiration consistent with normal right atrial pressure, 5 mmHg. Aorta The aortic root size at the sinus of Valsalva is normal. Left Ventricular Outflow Tract Name Value Normal LVOT 2D LVOT Diameter 1.9 cm LVOT Doppler LVOT Peak Gradient 8 mmHg LVOT Mean Gradient 5 mmHg LVOT VTI 21 cm LVOT VTI/AV VTI Ratio 0.6 LVOT Stroke Volume 58 ml LVOT CO 6.5 l/min LVOT CI 3.0 l/min/m2 Mitral Valve ------
[2019-10-06] VITALS (13 sets, daily range): BP systolic 123–136; BP diastolic 64–82; PULSE 99–125; RESP 20–22; TEMP 36.5–37.1; O2SAT 95–97
[2019-10-06] MEDS: ALBUTEROL SULFATE NEB 2.5 MG/0.5 ML INH 5 MG INHALATION ×2 (02:12→08:43)
[2019-10-06] MEDS: IPRATROPIUM BR 0.02% INH SOLN 0.5 MG/2.5 ML VIAL INHALATION ×4 (02:12→21:09)
[2019-10-06 08:10] LABS: Basophils Percent Auto 0.1 % (0.2-1.2); Eosinophils Absolute Auto 0.4 K/mm3 (0-0.3); Eosinophils Percent Auto 2.5 % (0-4.4); Hematocrit 38.3 % (37.0-47.0); Hemoglobin 12.4 g/dL (12.0-15.0); Immature Granulocyte Absolute 0.09 K/mm3 (0.00-0.031); Immature Granulocyte Percent A 0.6 % (0-0.5); Lymphocytes Absolute Auto 0.81 K/mm3 (0.9-3.2); Lymphocytes Percent Auto 5.2 % (18.3-44.2); Mean Corpuscular HGB Conc 32.4 g/dl (32-36); Mean Corpuscular Hemoglobin 27.7 pg (26-34); Mean Corpuscular Volume 85.5 fl (80-100); Mean Platelet Volume 9.4 fl (7.4-10.4); Monocytes Absolute Auto 1.5 K/mm3 (0.1-0.6); Monocytes Percent Auto 9.6 % (2.6-8.5); Neutrophils Absolute Auto 12.9 K/mm3 (1.3-6.7); Platelet Count Result 251 k/mm3 (150-375); Red Blood Count 4.48 M/mm3 (4.2-5.4); Red Cell Distribution Width 14.1 % (11.5-14.5); White Blood Count 15.7 K/mm3 (4.5-10.0)
[2019-10-06 08:28] LABS: Alanine Aminotransferase 48 U/L (4-35); Albumin Level 3.6 g/dL (3.5-5.1); Alkaline Phosphatase 93 U/L (38-126); Aspartate Amino Transferase 29 U/L (14-36); Bilirubin,Total 0.8 mg/dL (0.2-1.3); Blood Urea Nitrogen 39 mg/dL (7-17); Calcium 9.7 mg/dL (8.4-10.2); Carbon Dioxide > 40 mmol/L (22-30); Chloride 77 mmol/L (98-107); Estimated CRCL calculation 53 ml/min; Estimated Glomerular Filt Rate 60; Glucose 143 mg/dL (65-105); Magnesium 1.7 mg/dL (1.6-2.3); Potassium 3.4 mmol/L (3.4-5.0); Sodium 127 mmol/L (137-145)
[2019-10-06] MEDS: predniSONE 20 MG TABLET 40 MG PO (09:36)
[2019-10-06] MEDS: CHOLECALCIFEROL 1,000 UNIT TABLET 5000 UNITS PO (09:37)
[2019-10-06] MEDS: TRIAMTERENE 37.5 MG/HCTZ 25 MG (MAXZIDE) TABLET 1 TAB PO (09:37)
[2019-10-06] MEDS: DICYCLOMINE HCL 10 MG CAPSULE 20 MG PO ×2 (09:37→17:07)
[2019-10-06] MEDS: FAMOTIDINE 10 MG TABLET PO (09:37)
[2019-10-06] MEDS: polyethylene glycoL 3350 17 GM POWD.PACK PO (09:37)
[2019-10-06] MEDS: OPTI-GEN TAB 1 TABLET PO ×2 (09:38→21:32)
[2019-10-06] MEDS: ENOXAPARIN 40 MG/0.4 ML SYRINGE SUB-Q (09:38)
[2019-10-06] MEDS: FUROSEMIDE INJ 40 MG/4 ML VIAL IV PUSH ×2 (09:38→21:32)
[2019-10-06] MEDS: DOCUSATE SODIUM 100 MG CAPSULE PO (12:48)
--- NOTE | 2019-10-06 13:27 | PM.IMPN ---
Progress Note: A&P Assessment and Plan (1) COPD exacerbation: Code(s): J44.1 - Chronic obstructive pulmonary disease with (acute) exacerbation Status: Chronic Assessment and Plan: This is her fourth admission for COPD since July. She is on 3L per NC at baseline with chronic hypercapnia and hypoxemia. She is noncompliant with PAP therapy and continues to refuse this despite multiple efforts to encourage PAP use. Continue baseline supplemental oxygen of 3L and tritrate as needed to maintain SpO2 >90%. Continue nebulized levalbuterol and ipratropoim Q6HR. Continue symbicort. Continue prednisone. She reports that her dyspnea has improved and she feels she is at her baseline from this standpoint. Continue to monitor. (2) Acute and chronic respiratory failure: Qualifiers: Respiratory failure complication: hypoxia and hypercapnia Qualified Code(s): J96.21 - Acute and chronic respiratory failure with hypoxia; J96.22 - Acute and chronic respiratory failure with hypercapnia Code(s): J96.20 - Acute and chronic respiratory failure, unspecified whether with hypoxia or hypercapnia Status: Acute Assessment and Plan: Secondary to COPD and noncompliance with PAP therapy for DANETTE. CTA chest was negative for PE. COVID-19 testing was negative. CXR revealed no evidence of consolidation, effusion, or pneumothorax. (3) Chest pain: Qualifiers: Chest pain type: unspecified Qualified Code(s): R07.9 - Chest pain, unspecified Code(s): R07.9 - Chest pain, unspecified Status: Resolved Assessment and Plan: Troponin was elevated with a flat trend. EKG was negative for acute ischemia. BNP was elevated at 1,400. Echocardiogram was performed and revealed normal LV systolic function with EF of 55-60% with grade 1 diastolic dysfunction, mild aortic valve stenosis, and no wall motion abnormalities. She is not having any chest pain or dyspnea at this time.This was likely due to her COPD exacerbation. Will continue to monitor. (4) Obstructive sleep apnea: Code(s): G47.33 - Obstructive sleep apnea (adult) (pediatric) Status: Chronic Assessment and Plan: She has a hx of DANETTE but is non-compliant with PAP therapy. I encouraged her to try to use this tonight and she is agreeable. (5) Chronic diastolic (congestive) heart failure: Code(s): I50.32 - Chronic diastolic (congestive) heart failure Status: Chronic Assessment and Plan: Chronic. She is euvolemic and clinically compensated. Will continue furosemide. Continue to monitor. (6) Chronic hyponatremia: Code(s): E87.1 - Hypo-osmolality and hyponatremia Status: Acute Assessment and Plan: Chronic. Her baseline sodium appears to be 130-133. She is on HCTZ. Sodium today is 127. She is asymptomatic. Will check urine sodium and creatinine Will continue to monitor. (7) Essential (primary) hypertension: Code(s): I10 - Essential (primary) hypertension Status: Acute Assessment and Plan: Blood pressures were reviewed from 10/05 and are at target. She is on lasix and triamterene-HCTZ prior to admission. Will continue to monitor. (8) Constipation: Qualifiers: Constipation type: unspecified constipation type Qualified Code(s): K59.00 - Constipation, unspecified Code(s): K59.00 - Constipation, unspecified Status: Acute Assessment and Plan: She reports that her last good bowel movement was 1 week ago. She expresses that she feels constipated. She had one small, hard bowel movement last night and two earlier today. Will continue colace and miralax for now as she is reluctant to take anything else at this time. Will add additional agents if necessary. (9) Thyroid nodule: Code(s): E04.1 - Nontoxic single thyroid nodule Status: Acute Assessment and Plan: CTA chest revealed a thyroid nodule. Thyroid
[2019-10-06 16:56] LABS: Creatinine Urine 31.2 mg/dL
[2019-10-06 17:12] LABS: Sodium Urine Random 129 meq/L
[2019-10-07] VITALS (13 sets, daily range): BP systolic 149–162; BP diastolic 74–84; PULSE 101–112; RESP 16–24; TEMP 36.4–37.1; O2SAT 90–96
[2019-10-07] MEDS: IPRATROPIUM BR 0.02% INH SOLN 0.5 MG/2.5 ML VIAL INHALATION ×4 (02:05→19:15)
[2019-10-07 06:17] LABS: Basophils Percent Auto 0.2 % (0.2-1.2); Eosinophils Absolute Auto 0.2 K/mm3 (0-0.3); Eosinophils Percent Auto 1.9 % (0-4.4); Hematocrit 38.3 % (37.0-47.0); Hemoglobin 12.7 g/dL (12.0-15.0); Immature Granulocyte Percent A 0.8 % (0-0.5); Lymphocytes Absolute Auto 0.84 K/mm3 (0.9-3.2); Lymphocytes Percent Auto 6.5 % (18.3-44.2); Mean Corpuscular HGB Conc 33.2 g/dl (32-36); Mean Corpuscular Hemoglobin 28.1 pg (26-34); Mean Corpuscular Volume 84.7 fl (80-100); Mean Platelet Volume 9.4 fl (7.4-10.4); Monocytes Absolute Auto 1.3 K/mm3 (0.1-0.6); Monocytes Percent Auto 9.6 % (2.6-8.5); Neutrophils Absolute Auto 10.5 K/mm3 (1.3-6.7); Platelet Count Result 245 k/mm3 (150-375); Red Blood Count 4.52 M/mm3 (4.2-5.4); Red Cell Distribution Width 13.9 % (11.5-14.5)
[2019-10-07 06:41] LABS: Alanine Aminotransferase 46 U/L (4-35); Albumin Level 3.7 g/dL (3.5-5.1); Alkaline Phosphatase 109 U/L (38-126); Aspartate Amino Transferase 25 U/L (14-36); Bilirubin,Total 0.6 mg/dL (0.2-1.3); Blood Urea Nitrogen 46 mg/dL (7-17); Calcium 10.3 mg/dL (8.4-10.2); Carbon Dioxide > 40 mmol/L (22-30); Chloride 75 mmol/L (98-107); Estimated CRCL calculation 45 ml/min; Estimated Glomerular Filt Rate 60; Glucose 179 mg/dL (65-105); Magnesium 1.7 mg/dL (1.6-2.3); Potassium 3.3 mmol/L (3.4-5.0); Sodium 128 mmol/L (137-145)
[2019-10-07] MEDS: POTASSIUM CHLORIDE 20 MEQ TABLET 40 MEQ PO (08:48)
[2019-10-07] MEDS: DICYCLOMINE HCL 10 MG CAPSULE 20 MG PO ×2 (08:49→17:36)
[2019-10-07] MEDS: FUROSEMIDE INJ 40 MG/4 ML VIAL IV PUSH ×2 (08:49→21:40)
[2019-10-07] MEDS: OPTI-GEN TAB 1 TABLET PO ×2 (08:49→21:40)
[2019-10-07] MEDS: predniSONE 20 MG TABLET 40 MG PO (08:49)
[2019-10-07] MEDS: FAMOTIDINE 10 MG TABLET PO (08:49)
[2019-10-07] MEDS: CHOLECALCIFEROL 1,000 UNIT TABLET 5000 UNITS PO (08:49)
[2019-10-07] MEDS: polyethylene glycoL 3350 17 GM POWD.PACK PO (08:50)
[2019-10-07] MEDS: ENOXAPARIN 40 MG/0.4 ML SYRINGE SUB-Q (08:50)
[2019-10-07] MEDS: TRIAMTERENE 37.5 MG/HCTZ 25 MG (MAXZIDE) TABLET 1 TAB PO (08:50)
[2019-10-07] MEDS: DOCUSATE SODIUM 100 MG CAPSULE PO (08:53)
--- NOTE | 2019-10-07 10:39 | PM.IMPN ---
Progress Note: A&P Assessment and Plan (1) COPD exacerbation: Code(s): J44.1 - Chronic obstructive pulmonary disease with (acute) exacerbation Status: Chronic Assessment and Plan: This is her fourth admission for COPD since July. She is on 3L per NC at baseline with chronic hypercapnia and hypoxemia. She is noncompliant with PAP therapy and continues to refuse this despite multiple efforts to encourage PAP use. Continue baseline supplemental oxygen of 3L and tritrate as needed to maintain SpO2 >90%. Continue nebulized levalbuterol and ipratropoim Q6HR. Continue symbicort. Continue prednisone. She reports that her dyspnea has improved and she feels she is at her baseline from this standpoint. Continue to monitor. She is stable and at her baseline. (2) Acute and chronic respiratory failure: Qualifiers: Respiratory failure complication: hypoxia and hypercapnia Qualified Code(s): J96.21 - Acute and chronic respiratory failure with hypoxia; J96.22 - Acute and chronic respiratory failure with hypercapnia Code(s): J96.20 - Acute and chronic respiratory failure, unspecified whether with hypoxia or hypercapnia Status: Acute Assessment and Plan: Secondary to COPD and noncompliance with PAP therapy for DANETTE. CTA chest was negative for PE. COVID-19 testing was negative. CXR revealed no evidence of consolidation, effusion, or pneumothorax. (3) Chest pain: Qualifiers: Chest pain type: unspecified Qualified Code(s): R07.9 - Chest pain, unspecified Code(s): R07.9 - Chest pain, unspecified Status: Resolved Assessment and Plan: Troponin was elevated with a flat trend. EKG was negative for acute ischemia. BNP was elevated at 1,400. Echocardiogram was performed and revealed normal LV systolic function with EF of 55-60% with grade 1 diastolic dysfunction, mild aortic valve stenosis, and no wall motion abnormalities. She is not having any chest pain or dyspnea at this time.This was likely due to her COPD exacerbation. Will continue to monitor. She has not had any chest pain. (4) Obstructive sleep apnea: Code(s): G47.33 - Obstructive sleep apnea (adult) (pediatric) Status: Chronic Assessment and Plan: She has a hx of DANETTE but is non-compliant with PAP therapy. I encouraged her to try to use this but she continues to refuse. (5) Chronic diastolic (congestive) heart failure: Code(s): I50.32 - Chronic diastolic (congestive) heart failure Status: Chronic Assessment and Plan: Chronic. She is euvolemic and clinically compensated. Will continue furosemide. Continue to monitor. (6) Chronic hyponatremia: Code(s): E87.1 - Hypo-osmolality and hyponatremia Status: Acute Assessment and Plan: Chronic. Her baseline sodium appears to be 130-133. She is on HCTZ. Sodium today is 128. She is asymptomatic. Will continue to monitor. (7) Essential (primary) hypertension: Code(s): I10 - Essential (primary) hypertension Status: Acute Assessment and Plan: Blood pressures were reviewed from 10/05 and are at target. She is on lasix and triamterene-HCTZ prior to admission. Will continue to monitor. (8) Constipation: Qualifiers: Constipation type: unspecified constipation type Qualified Code(s): K59.00 - Constipation, unspecified Code(s): K59.00 - Constipation, unspecified Status: Acute Assessment and Plan: She reports that her last good bowel movement was 1 week ago. She expresses that she feels constipated. She had a small bowel movement earlier today but still feels constipated. Will continue colace and miralax and add a dolcolax suppository. (9) Thyroid nodule: Code(s): E04.1 - Nontoxic single thyroid nodule Status: Acute Assessment and Plan: CTA chest revealed a thyroid nodule. Thyroid US was performed for further evaluation and rev
[2019-10-07] MEDS: BISACODYL 10 MG SUPPOSITORY RECTAL (11:50)
[2019-10-08] VITALS (14 sets, daily range): BP systolic 126–152; BP diastolic 61–87; PULSE 100–113; RESP 16–24; TEMP 36.7–36.9; O2SAT 88–98
[2019-10-08] MEDS: IPRATROPIUM BR 0.02% INH SOLN 0.5 MG/2.5 ML VIAL INHALATION ×4 (01:22→20:43)
[2019-10-08 08:53] LABS: Hematocrit 40.5 % (37.0-47.0); Hemoglobin 13.3 g/dL (12.0-15.0); Mean Corpuscular HGB Conc 32.8 g/dl (32-36); Mean Corpuscular Hemoglobin 28.1 pg (26-34); Mean Corpuscular Volume 85.6 fl (80-100); Mean Platelet Volume 10.1 fl (7.4-10.4); Platelet Count Result 267 k/mm3 (150-375); Red Blood Count 4.73 M/mm3 (4.2-5.4); White Blood Count 14.2 K/mm3 (4.5-10.0)
[2019-10-08 09:09] LABS: Blood Urea Nitrogen 54 mg/dL (7-17); Calcium 10.9 mg/dL (8.4-10.2); Carbon Dioxide > 40 mmol/L (22-30); Chloride 77 mmol/L (98-107); Estimated CRCL calculation 34 ml/min; Estimated Glomerular Filt Rate 43; Glucose 182 mg/dL (65-105); Potassium 3.6 mmol/L (3.4-5.0); Sodium 127 mmol/L (137-145)
--- NOTE | 2019-10-08 09:39 | PM.IMPN ---
Progress Note: A&P Assessment and Plan (1) COPD exacerbation: Code(s): J44.1 - Chronic obstructive pulmonary disease with (acute) exacerbation Status: Chronic Assessment and Plan: This is her fourth admission for COPD since July. She is on 3L per NC at baseline with chronic hypercapnia and hypoxemia. She is noncompliant with PAP therapy was refusing this despite multiple efforts to encourage PAP use. Continue baseline supplemental oxygen of 3L and tritrate as needed to maintain SpO2 >90%. Continue nebulized levalbuterol and ipratropoim, will increase to Q4HR. Continue symbicort. Continue prednisone. She notes dyspnea today. I have encouraged agressive PT/OT and ambulation. Will add PEP therapy. Continue to monitor. Discussed the case with Dr. Macedo who will see her. Recommendations are greatly appreciated. (2) Acute kidney injury: Code(s): N17.9 - Acute kidney failure, unspecified Status: Acute Assessment and Plan: Cr is 1.2 today and BUN 54. Suspect pre-renal as she appears dehydrated clinically and on labs. Baseline Cr appears to be 0.5-0.8. Will switch to home PO lasix and add very gentle IV fluids and monitor labs closely. (3) Acute and chronic respiratory failure: Qualifiers: Respiratory failure complication: hypoxia and hypercapnia Qualified Code(s): J96.21 - Acute and chronic respiratory failure with hypoxia; J96.22 - Acute and chronic respiratory failure with hypercapnia Code(s): J96.20 - Acute and chronic respiratory failure, unspecified whether with hypoxia or hypercapnia Status: Acute Assessment and Plan: Secondary to COPD and noncompliance with PAP therapy for DANETTE. CTA chest was negative for PE. COVID-19 testing was negative. CXR revealed no evidence of consolidation, effusion, or pneumothorax. (4) Chest pain: Qualifiers: Chest pain type: unspecified Qualified Code(s): R07.9 - Chest pain, unspecified Code(s): R07.9 - Chest pain, unspecified Status: Resolved Assessment and Plan: Troponin was elevated with a flat trend. EKG was negative for acute ischemia. BNP was elevated at 1,400. Echocardiogram was performed and revealed normal LV systolic function with EF of 55-60% with grade 1 diastolic dysfunction, mild aortic valve stenosis, and no wall motion abnormalities. She is not having any chest pain or dyspnea at this time.This was likely due to her COPD exacerbation. Will continue to monitor. (5) Obstructive sleep apnea: Code(s): G47.33 - Obstructive sleep apnea (adult) (pediatric) Status: Chronic Assessment and Plan: She has a hx of DANETTE but has been non-compliant with PAP therapy. She did use CPAP last night for the first time and tolerated this. She is motivated to continue CPAP and is agreeable to do so at home as well. (6) Chronic diastolic (congestive) heart failure: Code(s): I50.32 - Chronic diastolic (congestive) heart failure Status: Chronic Assessment and Plan: Chronic. She is euvolemic and clinically compensated. Continue home lasix dose. Continue to monitor. (7) Chronic hyponatremia: Code(s): E87.1 - Hypo-osmolality and hyponatremia Status: Acute Assessment and Plan: Chronic. Her baseline sodium appears to be 130-133. She is on HCTZ which is likely the etiology for her hyponatremia. This is chronic and she is asymptomatic. Sodium today is 127. Will continue to monitor. (8) Essential (primary) hypertension: Code(s): I10 - Essential (primary) hypertension Status: Acute Assessment and Plan: Blood pressures were reviewed and were elevated yesterday. Previously, BP were adequately controlled. She is on lasix and triamterene-HCTZ prior to admission. Will continue to monitor and titrate blood pressure medications as needed. She did have discomfort yesterday due to constipation. (9) Constipation: Waqas
[2019-10-08] MEDS: TRIAMTERENE 37.5 MG/HCTZ 25 MG (MAXZIDE) TABLET 1 TAB PO (09:49)
[2019-10-08] MEDS: SODIUM CHLORIDE 0.9% IV 1,000 ML 85 ML IV CONT (09:49)
[2019-10-08] MEDS: FAMOTIDINE 10 MG TABLET PO (09:49)
[2019-10-08] MEDS: predniSONE 20 MG TABLET 40 MG PO (09:49)
[2019-10-08] MEDS: DICYCLOMINE HCL 10 MG CAPSULE 20 MG PO ×2 (09:50→17:44)
[2019-10-08] MEDS: CHOLECALCIFEROL 1,000 UNIT TABLET 5000 UNITS PO (09:50)
[2019-10-08] MEDS: OPTI-GEN TAB 1 TABLET PO ×2 (09:50→20:43)
[2019-10-08] MEDS: ENOXAPARIN 40 MG/0.4 ML SYRINGE SUB-Q (09:50)
[2019-10-08] MEDS: polyethylene glycoL 3350 17 GM POWD.PACK PO (09:50)
[2019-10-08] MEDS: FUROSEMIDE 20 MG TABLET PO (10:11)
[2019-10-08 13:49] LABS: Add Urine Microscopic? YES; Appearance Urine Cloudy (Clear); Bacteria Urine 1+ /hpf; Bilirubin Urine Negative (Negative); Blood Urine 2+ (Negative); Color Urine Yellow (Yellow); Glucose Urine UA Negative (Negative); Hyaline Casts Urine 30-49 /lpf; Ketones Urine Negative (Negative); Leukocyte Esterase Ur 3+ LEU/UL (NEGATIVE); Mucus Urine Rare /lpf; Nitrate Urine Negative (Negative); Protein Urine 1+ mg/dL (Negative); RBC Urine 51-75 /hpf (0-2); Specific Grav Ur 1.018 (1.001-1.035); Squamous Epithelial Cell Urine Many /hpf (Few); Urobilinogen Urine Negative mg/dL (<2.0); WBC Urine >75 /hpf (0-3)
--- NOTE | 2019-10-08 17:17 | PM.CNPUL ---
Assessment and Plan Assessment and plan (1) Acute and chronic respiratory failure: Qualifiers: Respiratory failure complication: hypoxia and hypercapnia Qualified Code(s): J96.21 - Acute and chronic respiratory failure with hypoxia; J96.22 - Acute and chronic respiratory failure with hypercapnia Code(s): J96.20 - Acute and chronic respiratory failure, unspecified whether with hypoxia or hypercapnia Status: Acute Assessment and Plan: She appeared to worsened secondary to a COPD exacerbation but her main reason for admission was chest pain. This is improved. She has had low level positive troponins and a low positive BNP. She has chronic diastolic congestive heart failureThe patient had a compensated ABG this admission. pH 7.45 pCO2 55 PO2 59 pCO2 37.5 saturation 91.2% on 5 L. She would be a candidate for NPPV for respiratory support at night and during the day but she is very clear that she does not want use this. She has had pCO2 elevated into the mid 60s. Will add small amount of S he does own mind to decrease the bicarbonate and try to reset her capnostat. (2) COPD exacerbation: Code(s): J44.1 - Chronic obstructive pulmonary disease with (acute) exacerbation Status: Chronic Assessment and Plan: Sputum production was stable, she was increasingly short of breath with her main complaint of chest pain. (3) Obstructive sleep apnea: Code(s): G47.33 - Obstructive sleep apnea (adult) (pediatric) Status: Chronic Assessment and Plan: Not on treatment; has a PAP device at home that she purchased outright, but has no DME provider to assist with equipment, masks, fit and education. (4) Chronic shortness of breath: Code(s): R06.02 - Shortness of breath Status: Acute Assessment and Plan: She has very limited ability to perform any tasks of daily living, deconditioned. She is dependent on the staff at the hospital to perform even minor tasks for her. Her appears to be her caregiver. (5) Hyponatremia: Code(s): E87.1 - Hypo-osmolality and hyponatremia Status: Acute Assessment and Plan: managed by her medical team History of Present Illness History of Present Illness Consult date: 10/09/19 Requesting physician: Gauri Aguilar PA-C Chief complaint: Acute on chronic respiratory failure Narrative: ; W CONSULT: I was consulted by Gauri Aguilar PA-C for this 79 yo female with recurrent episode of shortness of breath with baseline chronic hypercapnic hypoxemic respiratory failure on home O2 for 10 years. this is her 4th at Admission since August 07 for similar complaints mainly shortness of breath. This admission she had chest pain 02/08. She was admitted on October 03. She does have diastolic congestive heart failure which adds to the complication determining what is the cause of her underlying shortness of breath. She has been seen at [place] by our group in 2017, and in the office in Apr 2018. I saw her September 06, 2019 in consultation with episode of acute respiratory failure superimposed on chronic respiratory failure, COPD, history of smoking, none for 12 years, and diastolic CHF. She was followed by Dr. Starr in [place] in the past, has been seen in our practice, but not recently. She has a history of DANETTE, not complaint with PAP therapy. She increase her O2 for shortness of breath, usually keeps at around 3 L a minute sometimes higher. She has poor memory at times, requires significant assistance from those around her. She lives with her . She did not have fever, chills, productive cough,
[2019-10-08] MEDS: SODIUM CHLORIDE 0.9% IV 1,000 ML 50 ML IV CONT (22:20)
[2019-10-09] VITALS (10 sets, daily range): BP systolic 144–153; BP diastolic 69–73; PULSE 78–109; RESP 18–22; TEMP 36.5–36.9; O2SAT 94–98
[2019-10-09] MEDS: IPRATROPIUM BR 0.02% INH SOLN 0.5 MG/2.5 ML VIAL INHALATION ×3 (02:46→13:38)
[2019-10-09 06:55] LABS: Basophils Percent Auto 0.2 % (0.2-1.2); Eosinophils Absolute Auto 0.1 K/mm3 (0-0.3); Eosinophils Percent Auto 0.8 % (0-4.4); Hematocrit 34.5 % (37.0-47.0); Hemoglobin 11.3 g/dL (12.0-15.0); Immature Granulocyte Absolute 0.26 K/mm3 (0.00-0.031); Immature Granulocyte Percent A 2.1 % (0-0.5); Lymphocytes Absolute Auto 0.66 K/mm3 (0.9-3.2); Lymphocytes Percent Auto 5.4 % (18.3-44.2); Mean Corpuscular HGB Conc 32.8 g/dl (32-36); Mean Corpuscular Volume 85.6 fl (80-100); Mean Platelet Volume 9.8 fl (7.4-10.4); Monocytes Absolute Auto 1.1 K/mm3 (0.1-0.6); Monocytes Percent Auto 9.2 % (2.6-8.5); Neutrophils Absolute Auto 10.1 K/mm3 (1.3-6.7); Neutrophils Percent Auto 82.3 % (45.5-73.1); Platelet Count Result 241 k/mm3 (150-375); Red Blood Count 4.03 M/mm3 (4.2-5.4); Red Cell Distribution Width 13.8 % (11.5-14.5); White Blood Count 12.3 K/mm3 (4.5-10.0)
[2019-10-09 07:07] LABS: Alanine Aminotransferase 45 U/L (4-35); Albumin Level 3.3 g/dL (3.5-5.1); Alkaline Phosphatase 81 U/L (38-126); Aspartate Amino Transferase 25 U/L (14-36); Bilirubin,Total 0.4 mg/dL (0.2-1.3); Blood Urea Nitrogen 49 mg/dL (7-17); Calcium 9.8 mg/dL (8.4-10.2); Carbon Dioxide > 40 mmol/L (22-30); Chloride 85 mmol/L (98-107); Estimated CRCL calculation 50 ml/min; Estimated Glomerular Filt Rate > 60; Glucose 173 mg/dL (65-105); Magnesium 1.7 mg/dL (1.6-2.3); Potassium 3.4 mmol/L (3.4-5.0); Sodium 128 mmol/L (137-145)
[2019-10-09] MEDS: DICYCLOMINE HCL 10 MG CAPSULE 20 MG PO (09:00)
[2019-10-09] MEDS: OPTI-GEN TAB 1 TABLET PO (10:45)
[2019-10-09] MEDS: predniSONE 20 MG TABLET 40 MG PO (10:45)
[2019-10-09] MEDS: CHOLECALCIFEROL 1,000 UNIT TABLET 5000 UNITS PO (10:45)
[2019-10-09] MEDS: FAMOTIDINE 10 MG TABLET PO (10:46)
[2019-10-09] MEDS: TRIAMTERENE 37.5 MG/HCTZ 25 MG (MAXZIDE) TABLET 1 TAB PO (14:25)
--- NOTE | 2019-10-09 15:53 | PM.DS ---
DS: Admitting Diagnosis Admitting Diagnosis Admitting Diagnosis: Acute and chronic respiratory failure, unspecified whether with hypoxia or hypercapnia DS: Discharge Diagnosis Discharge Diagnosis (1) Acute and chronic respiratory failure: Qualifiers: Respiratory failure complication: hypoxia and hypercapnia Qualified Code(s): J96.21 - Acute and chronic respiratory failure with hypoxia; J96.22 - Acute and chronic respiratory failure with hypercapnia Code(s): J96.20 - Acute and chronic respiratory failure, unspecified whether with hypoxia or hypercapnia Status: Acute Assessment and Plan: This was likely multifactorial given COPD exacerbation, DANETTE, diastolic dysfunction, and noncompliance with lasix and CPAP. CTA chest was negative for PE. COVID-19 testing was negative. CXR revealed no evidence of consolidation, effusion, or pneumothorax. She remained stable on her typical 3L oxygen requirement. ABG was compensated with elevated pH, elevated pCO2, and elevated bicarb. Acetazolamide was added per pulmonology recommendations to improve alkalosis, however patient refused. (2) COPD exacerbation: Code(s): J44.1 - Chronic obstructive pulmonary disease with (acute) exacerbation Status: Chronic Assessment and Plan: This is her fourth admission for COPD since July. She is on 3L per NC at baseline with chronic hypercapnia and hypoxemia. Her oxygen saturations remained stable with typical oxygen requirements. She did not have increased sputum production. She has refused to use NPPV therapy despite pulmonology recommendations. She was treated with bronchodilators and steroids. She will continue a short course of oral prednisone taper as an outpatient and continue her inhalers. (3) Chronic diastolic (congestive) heart failure: Code(s): I50.32 - Chronic diastolic (congestive) heart failure Status: Chronic Assessment and Plan: Chronic. Recent Echo demonstrated grade 1 diastolic dysfunction. She had been noncompliant with home lasix. She is euvolemic and clinically compensated. She will continue her typical home dose lasix and I reinforced the importance of medication compliance. (4) Acute kidney injury: Code(s): N17.9 - Acute kidney failure, unspecified Status: Acute Assessment and Plan: She developed a transient increase in BUN and Cr on 10/08/19, likely due to increased diuretic therapy. She was given gentle IV fluids and her renal function returned to baseline. Her Lasix was transitioned back to her home dose of 20 mg PO daily. (5) Obstructive sleep apnea: Code(s): G47.33 - Obstructive sleep apnea (adult) (pediatric) Status: Chronic Assessment and Plan: She has a hx of DANETTE but has been non-compliant with PAP therapy. She used the CPAP while in the hospital and was educated on the importance of continuing CPAP therapy at home. (6) Chest pain: Qualifiers: Chest pain type: unspecified Qualified Code(s): R07.9 - Chest pain, unspecified Code(s): R07.9 - Chest pain, unspecified Status: Resolved Assessment and Plan: Troponin was elevated with a flat trend. EKG was negative for acute ischemia. BNP was elevated at 1,400. Echocardiogram was performed and revealed normal LV systolic function with EF of 55-60% with grade 1 diastolic dysfunction, mild aortic valve stenosis, and no wall motion abnormalities. Her chest pain resolved and was likely related to her COPD exacerbation. (7) Chronic hyponatremia: Code(s): E87.1 - Hypo-osmolality and hyponatremia Status: Acute Assessment and Plan: Her baseline sodium appears to be 130-133. She is on HCTZ which is likely the etiology for her hyponatremia. This is chronic and she is asymptomatic. (8) Essential (primary) hypertension: Code(s): I10 - Essential (primary) hypertension Status: Acute Assessment and Plan: Blood
--- NOTE | 2019-10-09 17:15 | PM.PNPUL ---
Progress Note: A&P Assessment and Plan (1) Acute and chronic respiratory failure: Qualifiers: Respiratory failure complication: hypoxia and hypercapnia Qualified Code(s): J96.21 - Acute and chronic respiratory failure with hypoxia; J96.22 - Acute and chronic respiratory failure with hypercapnia Code(s): J96.20 - Acute and chronic respiratory failure, unspecified whether with hypoxia or hypercapnia Status: Acute Assessment and Plan: She appeared to worsened secondary to a COPD exacerbation but her main reason for admission was chest pain. This is improved. She has had low level positive troponins and a low positive BNP. She has chronic diastolic congestive heart failureThe patient had a compensated ABG this admission. pH 7.45 pCO2 55 PO2 59 pCO2 37.5 saturation 91.2% on 5 L. She would be a candidate for NPPV for respiratory support at night and during the day but she is very clear that she does not want use this. She has had pCO2 elevated into the mid 60s. Will add small amount of S he does own mind to decrease the bicarbonate and try to reset her capnostat. (2) COPD exacerbation: Code(s): J44.1 - Chronic obstructive pulmonary disease with (acute) exacerbation Status: Chronic Assessment and Plan: Sputum production was stable, she was increasingly short of breath with her main complaint of chest pain. (3) Obstructive sleep apnea: Code(s): G47.33 - Obstructive sleep apnea (adult) (pediatric) Status: Chronic Assessment and Plan: Not on treatment; has a PAP device at home that she purchased outright, but has no DME provider to assist with equipment, masks, fit and education. (4) Chronic shortness of breath: Code(s): R06.02 - Shortness of breath Status: Acute Assessment and Plan: She has very limited ability to perform any tasks of daily living, deconditioned. She is dependent on the staff at the hospital to perform even minor tasks for her. Her appears to be her caregiver. (5) Hyponatremia: Code(s): E87.1 - Hypo-osmolality and hyponatremia Status: Acute Assessment and Plan: managed by her medical team Subjective Date/time seen: 10/09/19 17:15 Interval history: This 79 yo female is seen in follow up for a COPD exacerbation. She is now on [facility] bedside commode, had a large BM earlier. She says that her breathing is not a good today, and that she just does nto feel great. Chronic respiratory failure with hypoxia and hypercapnia, feels short of breath today. No cough, sputum, fever, chest pain. Her main source of coucenr is abdominal discomfort after salad for lunch and a large BM with another in process. Review of Systems Review of Systems: All systems reviewed & are unremarkable except as noted in HPI and below (HPI. ) Exam Const: General: comfortable; No in distress Other: This is a 79-year-old female not in acute distress. She is on the bedside commode. HENMT: Other: moist oral membranes, Neck: Neck: no JVD Lymphatic: lymphadenopathy not noted Resp: Effort & Inspection: normal respiratory effort Auscultation: diminished lung sounds Cardio: Rate: regular rate Rhythm: regular rhythm Heart sounds: no gallops and no murmurs GI: Auscultation: normal bowel sounds Skin: Other: Skin is thin, and she has scant scattered ecchymoses especially on the left dorsum of the hand. no cyanosis Extrem: General: edema ( trace lower extremity edema) bilateral Psych: Mental Status: mental status grossly normal Other: limited insight Objective Data Vital Signs Vital Signs: Vit
[2019-10-10 06:11] LABS: Osmolality, Urine 528 mOsm/kg (50-1200)
== END 2019-10-09 18:10 | disposition home health service (06) | DRG 190 ==
LOC: ANHED 12:12 → ANHICU 12:58 → ANH3MEDSUR 10-05 14:25
PROVIDERS: Physician Assistant; Admitting Provider Internal Medicine; Emergency Provider Emergency Medicine; PCP Internal Medicine; Visit Provider Physician Assistant
DX: J44.1 Chronic obstructive pulmonary disease with (acute) exacerbation (principal); J96.21 Acute and chronic respiratory failure with hypoxia; J96.22 Acute and chronic respiratory failure with hypercapnia; I50.32 Chronic diastolic (congestive) heart failure; N17.9 Acute kidney failure, unspecified; E87.1 Hypo-osmolality and hyponatremia; T50.2X5A Adverse effect of carbonic-anhydrase inhibitors, benzothiadiazides and other diuretics, initial encounter; G47.33 Obstructive sleep apnea (adult) (pediatric); Z91.19 Patient's noncompliance with other medical treatment and regimen; Z20.828 Contact with and (suspected) exposure to other viral communicable diseases; I11.0 Hypertensive heart disease with heart failure; K59.00 Constipation, unspecified; E04.1 Nontoxic single thyroid nodule; D72.829 Elevated white blood cell count, unspecified; T38.0X5A Adverse effect of glucocorticoids and synthetic analogues, initial encounter; I35.0 Nonrheumatic aortic (valve) stenosis; G89.4 Chronic pain syndrome; K21.9 Gastro-esophageal reflux disease without esophagitis; M79.662 Pain in left lower leg; M79.661 Pain in right lower leg; I87.2 Venous insufficiency (chronic) (peripheral); E55.9 Vitamin D deficiency, unspecified; Z96.651 Presence of right artificial knee joint; Z91.14 Patient's other noncompliance with medication regimen; Z99.81 Dependence on supplemental oxygen; Z87.891 Personal history of nicotine dependence
CPT/HCPCS: 36415; 36600; 71045; 71275; 76536; 80048; 80053; 81001; 82375; 82570; 82805; 83050; 83735; 83880; 83935; 84300; 84484; 85025; 85027; 85610; 85730; 87635; 93005; 93306; 93970; 94640; 94667; 94668; 96374; 96375; 97161; 97165; 97530; 97535; 99285; A9270; C9803; J1650; J1940; J7030; J7512; Q9967; U0003

== ENCOUNTER 2019-10-17 20:42 | Emergency (ER) | payer MEDICARE, SELFPAY ==
[2019-10-17] VITALS (7 sets, daily range): BP systolic 151–165; BP diastolic 64–87; PULSE 101–111; RESP 14–25; TEMP 36.7; O2SAT 91–96
--- NOTE | ~2019-10-17 | XR_ITS ---
EXAMINATION: XR chest 1V portable DATE: 10/17/2019 22:29 INDICATION: Cough and dyspnea TECHNIQUE: frontal view of the chest was obtained. COMPARISON: Chest radiograph and CT dated 10/04/2019 FINDINGS: Increased lucency and architectural distortion at the upper lung zones consistent with moderate emphy sema better appreciated on prior CT. Mild streaky left basilar opacities and favor atelectasis over p neumonia. No other airspace opacities, pulmonary edema, pleural effusion or pneumothorax. The cardiom ediastinal silhouette is normal. Partially visualized bilateral vertical ignacio and pedicle screw fixati on for posterior spinal fusion in the upper lumbar spine. Severe bilateral glenohumeral osteoarthriti s. IMPRESSION: 1. Emphysema with mild streaky opacities at the left lung base and favor atelectasis over pneumonia. Reviewed, dictated and finalized at location A. IMPRESSION: 1. Emphysema with mild streaky opacities at the left lung base and favor atelec tasis over pneumonia.
--- NOTE | 2019-10-17 20:47 | ECG_ITS ---
Measurements Intervals [place] Rate: 106 P: 92 WA: 141 QRS: 28 QRSD: 93 T: 76 QT: 317 QTc: 421 Interpretive Statements SINUS TACHYCARDIA BASELINE WANDER- I, II, AVR, AVL, AVF ABNORMAL ECG Electronically Signed On 10-22-2019 11:17:45 CDT by Moiz Melton D.O.
--- NOTE | 2019-10-17 20:47 | ED.SOB ---
HPI - SOB/Dyspnea General Chief Complaint: Chest Pain Stated Complaint: cp, sob Time Seen by Provider: 10/17/19 20:46 Source: patient and EMS Mode of arrival: EMS Limitations: no limitations History of Present Illness HPI Narrative: The patient is a 79-year-old female with medical history significant for COPD on 3 L home oxygen, chronic hypoxic and hypercarbic respiratory failure, obstructive sleep apnea, refusing to use NIPPV therapy per chart review,, diastolic congestive heart failure, and several other comorbidities who presents to the emergency department for evaluation of shortness of breath. Patient was recently admitted to our facility for dyspnea, COPD exacerbation, decompensated heart failure. Patient reports that she has had chest pain since discharge home over the past nine days. She reports shortness of breath that is especially worsened with exertion and feels consistent with previous COPD exacerbations. Patient reports leg soreness which is chronic for her over the past few months, and she denies calf pain or swelling. She denies fever, and reports dry cough. Patient reports pain is over her left breast, no radiation to the neck, arm or shoulder. Per chart review, patient was in the hospital, had a negative chest x-ray, no PE on CT, negative COVID. Related Data Home Medications Medication Instructions Recorded Confirmed celecoxib 100 mg capsule 100 mg PO BID 03/16/19 10/04/19 cholecalciferol (vitamin D3) 125 5,000 unit PO DAILY 03/16/19 10/04/19 mcg (5,000 unit) tablet docusate sodium 100 mg capsule 100 mg PO BID PRN 03/16/19 10/04/19 famotidine 10 mg tablet 10 mg PO DAILY 03/16/19 10/04/19 oxycodone-acetaminophen 10 mg-325 1 tablet PO Q6H PRN tablet 03/16/19 10/04/19 mg tablet Pepto-Bismol 2 tablet PO MONTHLY PRN 07/12/19 10/04/19 PreserVision AREDS-2 1 tablet PO BID 07/12/19 10/04/19 budesonide-formoterol [Symbicort] 2 puff INHALATION Q12H 07/12/19 10/04/19 sodium chloride [[place] Nasal] 2 spray INTRANASAL PRN PRN 07/12/19 10/04/19 zolpidem 5 mg PO HS PRN 09/05/19 10/04/19 bflzjzuckx-yrrzxcqvvnipt-rrmm 1 tablet PO Q6H PRN 10/04/19 10/04/19 triamterene-hydrochlorothiazid 1 cap PO DAILY 10/04/19 10/04/19 Allergies Allergy/AdvReac Type Severity Reaction Status Date / Time Sulfa (Sulfonamide Allergy Unknown THROAT, Verified 10/17/19 21:15 Antibiotics) TONGUE SWELLING,Unknown aspirin Allergy Other Verified 10/17/19 21:15 Review of Systems Review of Systems: Narrative: CONSTITUTIONAL: Denies fever, chills, or sweats. CARDIOVASCULAR: Reports chest pain RESPIRATORY: Reports dry cough and shortness of breath GASTROINTESTINAL: Denies abdominal pain, nausea, vomiting, or diarrhea. GENITOURINARY: Denies dysuria or hematuria. SKIN: Denies rash or itching. MUSCULOSKELETAL: Denies back pain, joint pain, or myalgia. NEUROLOGIC: Denies headache, numbness, or weakness. [facility], [facility] Past Medical History Medical History Abdominal bruit Renal US negative for stenosis 08/2019. Aortic stenosis Mild on echocardiogram from October 2018. Borderline diabetic Cataracts, bilateral Maturing cataracts bilaterally. Chronic diastolic (congestive) heart failure Echocardiogram October 2018 demonstrated normal left ventricular systolic function with EF of 65-70% grade 1 diastolic dysfunction mild aortic stenosis with a normal RVSP of 34. Chronic hyponatremia Chronic pain syndrome With chronic back, bilateral shoulder, and left knee pain. Chronic respiratory failure with hypoxia and hypercapnia Chronic shortness of breath COPD with emphysema Dependence on supplemental oxygen On 3 liters nasal cannula. Essential (primary) hypertension Fractured coccyx GERD (gastroesophageal reflux disease) History of angina History of tobacco abuse Hyponatremia Insomnia Liver mass 21 mm likely benign noted on imaging for 2017. Obstructive sleep apnea Noncompliant with CPAP therapy at home.
[2019-10-17] MEDS: ALBUTEROL SULFATE NEB 2.5 MG/0.5 ML INH 10 MG INHALATION (21:10)
[2019-10-17] MEDS: IPRATROPIUM BR 0.02% INH SOLN 0.5 MG/2.5 ML VIAL 2 MG INHALATION (21:10)
[2019-10-17 21:13] LABS: Alveolar/Arterial O2 Gradient 86.7 mmHg; Base Excess ABG 16.3 mEq/l (+/-2.0); Carboxyhemoglobin 0.9 % THb (0-2.0); Fractional Inspired Oxygen 32 %; HCO3 ABG 42.9 mEq/l (22.0-26.0); Methemoglobin ABG 0.3 %THb (0-1.5); Oxygen Content ABG 16.7 %vol (16.0-22.0); Oxygen Saturation ABG 94.5 % (95.0-100.0); Oxyhemoglobin 93.4 % THb (90.0-100.0); PO2 ABG 70.3 mmHg (80.0-100.0); Reduced Hemoglobin 5.4 %THb (0-5.0); Total Hemoglobin 12.7 g/dL (12.0-18.0); pH ABG 7.466 (7.350-7.450)
[2019-10-17 21:14] LABS: Device NASAL CANNULA; Modified Allen's Test Pass; PCO2 ABG 60.8 mmHg (35.0-45.0); Site Drawn RIGHT RADIAL
[2019-10-17 21:29] LABS: Basophils Absolute Auto 0.1 K/mm3 (0.0-0.1); Basophils Percent Auto 0.7 % (0.2-1.2); Eosinophils Absolute Auto 0.5 K/mm3 (0-0.3); Eosinophils Percent Auto 6.1 % (0-4.4); Hematocrit 37.4 % (37.0-47.0); Hemoglobin 11.7 g/dL (12.0-15.0); Immature Granulocyte Absolute 0.11 K/mm3 (0.00-0.031); Immature Granulocyte Percent A 1.3 % (0-0.5); Lymphocytes Percent Auto 9.4 % (18.3-44.2); Mean Corpuscular HGB Conc 31.3 g/dl (32-36); Mean Corpuscular Hemoglobin 28.3 pg (26-34); Mean Corpuscular Volume 90.6 fl (80-100); Mean Platelet Volume 9.5 fl (7.4-10.4); Monocytes Absolute Auto 0.9 K/mm3 (0.1-0.6); Monocytes Percent Auto 10.2 % (2.6-8.5); Neutrophils Absolute Auto 6.2 K/mm3 (1.3-6.7); Neutrophils Percent Auto 72.3 % (45.5-73.1); Platelet Count Result 269 k/mm3 (150-375); Red Blood Count 4.13 M/mm3 (4.2-5.4); Red Cell Distribution Width 14.3 % (11.5-14.5); White Blood Count 8.5 K/mm3 (4.5-10.0)
--- NOTE | 2019-10-17 21:35 | PC.NURSE ---
Per Daniel in lab, need redraw for all labs. Asked for saw straightener to come draw pt. Multiple attempt to obtain spec.
[2019-10-17] MEDS: methylPREDNISolone SOD SUCC 125 MG VIAL IV PUSH (22:00)
[2019-10-17] MEDS: MAGNESIUM SULF 2 GM/WATER 50ML 2 GM/50 ML BAG IVPB (22:10)
[2019-10-17 22:24] LABS: INR 0.9; Prothrombin Time 12.2 Seconds (11.1-14.7)
[2019-10-17 22:25] LABS: Partial Thromboplastin Time 26.9 SECONDS (22.3-36.8)
[2019-10-17 22:27] LABS: Alanine Aminotransferase 55 U/L (4-35); Albumin Level 3.4 g/dL (3.5-5.1); Alkaline Phosphatase 83 U/L (38-126); Aspartate Amino Transferase 29 U/L (14-36); Bilirubin,Total 0.3 mg/dL (0.2-1.3); Blood Urea Nitrogen 26 mg/dL (7-17); Calcium 9.5 mg/dL (8.4-10.2); Carbon Dioxide > 40 mmol/L (22-30); Chloride 89 mmol/L (98-107); Estimated Glomerular Filt Rate > 60; Glucose 176 mg/dL (65-105); Potassium 3.7 mmol/L (3.4-5.0); Sodium 134 mmol/L (137-145)
[2019-10-17 22:33] LABS: NT Pro B Type Natriuretic Pept 518 PG/ML (5-100)
[2019-10-17 22:40] LABS: Troponin I 0.039 ng/mL (0.000-0.034)
[2019-10-17 23:08] LABS: Alveolar/Arterial O2 Gradient 86.4 mmHg; Base Excess ABG 13.4 mEq/l (+/-2.0); Carboxyhemoglobin 0.9 % THb (0-2.0); Device NASAL CANNULA; Fractional Inspired Oxygen 32 %; Methemoglobin ABG 0.4 %THb (0-1.5); Modified Allen's Test Pass; Oxygen Content ABG 16.5 %vol (16.0-22.0); Oxygen Saturation ABG 94.6 % (95.0-100.0); Oxyhemoglobin 93.2 % THb (90.0-100.0); PCO2 ABG 59.8 mmHg (35.0-45.0); PO2 ABG 71.8 mmHg (80.0-100.0); PO2 FiO2 Ratio Arterial Blood 2.24 %; Reduced Hemoglobin 5.5 %THb (0-5.0); Site Drawn LEFT RADIAL; Total Hemoglobin 12.6 g/dL (12.0-18.0); pH ABG 7.443 (7.350-7.450)
[2019-10-18 00:19] VITALS: BP 165/83; PULSE 109; RESP 23; O2SAT 91
--- NOTE | 2019-10-18 00:20 | PC.NURSE ---
blade, requested to be called when pt is up for d/c. [phone]
[2019-10-18 00:37] LABS: Troponin I 0.043 ng/mL (0.000-0.034)
== END 2019-10-18 00:58 | disposition home or self-care (01) ==
PROVIDERS: Emergency Provider Emergency Medicine; PCP Internal Medicine
DX: J44.1 Chronic obstructive pulmonary disease with (acute) exacerbation (principal); R07.89 Other chest pain; Z99.81 Dependence on supplemental oxygen; J96.11 Chronic respiratory failure with hypoxia; J96.12 Chronic respiratory failure with hypercapnia; G47.33 Obstructive sleep apnea (adult) (pediatric); I50.30 Unspecified diastolic (congestive) heart failure; I35.0 Nonrheumatic aortic (valve) stenosis; R73.03 Prediabetes; E87.1 Hypo-osmolality and hyponatremia; G89.4 Chronic pain syndrome; I11.0 Hypertensive heart disease with heart failure; K21.9 Gastro-esophageal reflux disease without esophagitis; E55.9 Vitamin D deficiency, unspecified; Z96.651 Presence of right artificial knee joint; Z87.891 Personal history of nicotine dependence; H26.9 Unspecified cataract
CPT/HCPCS: 36415; 36600; 71045; 80053; 82375; 82805; 83050; 83880; 84484; 85025; 85610; 85730; 93005; 96365; 96366; 96375; 99284; J2930; J3475

== ENCOUNTER 2019-11-09 19:08 | Inpatient (IN) | payer MEDICARE, SELFPAY ==
--- NOTE | ~2019-11-09 | XR_ITS ---
XR chest 1V portable 11/09/2019 20:18 Indication: Shortness of breath Procedure: AP portable chest Comparison: Comparison to multiple prior studies sequentially, with oldest reviewed study dated 09/10. Findings: Developing left basilar infiltrates. Heart size normal. Right lung clear. The lungs are hyp erinflated which is consistent with, but not diagnostic of chronic obstructive pulmonary disease. No edema or pneumothorax. Impression: 1: Developing left basilar infiltrates, pneumonia versus atelectasis. Reviewed, dictated and finalized at location A. Impression: 1: Developing left basilar infiltrates, pneumonia versus atelectasis.
--- NOTE | ~2019-11-09 | CT_ITS ---
EXAMINATION: CT brain wo con DATE: 11/11/2019 12:24 INDICATION: Confusion. TECHNIQUE: Computed tomography (CT) of the head was performed without intravenous contrast. The mA wa s adjusted according to patient size. Iterative reconstruction technique was employed. The dose-lengt h product was 605.33 mGy-cm. COMPARISON: Head CT 10/28/2018 FINDINGS: There are scattered areas of low attenuation in the cerebral white matter. There is no intr acranial hemorrhage, acute infarction, or abnormal intracranial mass lesion. The ventricles are marcella l in size. There are likely changes of ocular lens replacement surgeries. The paranasal sinuses are c lear. There is a small left mastoid effusion. IMPRESSION: 1. Stable extensive nonspecific cerebral white matter disease, which likely represents chronic small vessel ischemic disease. Reviewed, dictated and finalized at location A. IMPRESSION: 1. Stable extensive nonspecific cerebral white matter disease, which likely rep resents chronic small vessel ischemic disease.
--- NOTE | ~2019-11-09 | XR_ITS ---
EXAMINATION: XR abdomen obstructive series DATE: 11/10/2019 08:34 INDICATION: Small bowel obstruction. TECHNIQUE: Upright and supine views of the abdomen were obtained. COMPARISON: CT abdomen and pelvis 11/09/2019 FINDINGS: There are no dilated loops of small bowel. There is a small volume of stool in the colon. N o free intraperitoneal gas. There are changes of anterior and posterior fusion procedures in lumbar s pine. IMPRESSION: 1. Nonobstructive bowel gas pattern. Reviewed, dictated and finalized at location A.
--- NOTE | ~2019-11-09 | XR_ITS ---
XR chest 1V portable 11/10/2019 17:56 Indication: Shortness of breath. Hypertension. Procedure: AP portable chest Comparison: Comparison to multiple prior studies sequentially, with oldest reviewed study dated 10/16. Findings: Shallow inspiration with crowding of the pulmonary vasculature. Stable bibasilar infiltrate s. No pleural effusion, edema or pneumothorax. Advanced osteoarthritis of the glenohumeral joints. Arguelles rgical changes of the lumbar spine partially visualized. Impression: 1: Stable bibasilar infiltrates which may represent pneumonia and/or atelectasis. Reviewed, dictated and finalized at location A. Impression: 1: Stable bibasilar infiltrates which may represent pneumonia and/or atelectasi s.
--- NOTE | ~2019-11-09 | CT_ITS ---
EXAMINATION: CT abdomen pelvis wo con DATE: 11/09/2019 21:27 INDICATION: Abdominal pain TECHNIQUE: Computed tomography (CT) of the abdomen and pelvis was performed without intravenous contr ast. The dose-length product was 929.99 mGy-cm. Automated exposure control and iterative reconstructi on technique were employed. COMPARISON: None. FINDINGS: Calcified granuloma right lower lobe. No focal pneumonia. No pleural or pericardial effusio n. Heart size normal. Small subcentimeter hypodensity right hepatic lobe, most likely benign cyst or hemangioma. There are calcified granulomas of the liver and spleen. The pancreas, adrenal glands and left kidney are unrema rkable. There is a 2 mm nonobstructing right renal stone. Gallbladder is present. Fat-containing ingu inal hernias. There are fluid-filled small bowel loops throughout the abdomen with scattered areas of distention and air-fluid levels. No transition site is identified. The appendix is unremarkable. No free air or free fluid. Mildly prominent retroperitoneal lymph nodes, likely reactive. There is ather osclerosis without aneurysm. There are surgical changes consistent with fusion at L2-L5. Moderate-sev ere lumbar spondylosis. IMPRESSION: 1. Small bowel is diffusely distended with fluid with scattered air-fluid levels, most likely ileus o r enteritis. No definite obstruction. 2: Nonobstructing right nephrolithiasis. Reviewed, dictated and finalized at location A. IMPRESSION: 1. Small bowel is diffusely distended with fluid with scattered air-fluid level s, most likely ileus or enteritis. No definite obstruction. 2: Nonobstructing right nephrolithiasis.
--- NOTE | ~2019-11-09 | XR_ITS ---
XR abdomen obstructive series 11/11/2019 15:35 Indication: Abdomen pain. Possible ileus. Procedure: Supine and upright views of abdomen Comparison: 11/10/2019 Findings: Bowel gas pattern is nonobstructive. There is residual contrast in distended bladder. There are spinal fusion changes of the lumbar spine. Lung bases unremarkable. Impression: 1: Nonobstructive bowel gas pattern. Reviewed, dictated and finalized at location A. Impression: 1: Nonobstructive bowel gas pattern.
--- NOTE | ~2019-11-09 | CT_ITS ---
EXAMINATION: CTA chest DATE: 11/11/2019 12:34 INDICATION: Hypoxia. Back pain. TECHNIQUE: Computed tomographic angiography (CTA) of the chest was performed without and with 100 mL Omnipaque-350 intravenous contrast. Automated exposure control and iterative reconstruction technique were employed. The dose-length product was 1051.90 mGy-cm. Maximum intensity projection 3D-reconstru ctions of the aorta and other arteries were constructed by the technologist on a separate workstation . COMPARISON: Chest CT 10/04/2019, thyroid ultrasound 10/05/2019 FINDINGS: There is moderate emphysema. There is mild atelectasis bilaterally. A calcified right lung nodule and calcified right hilar lymph nodes are consistent with old granulomatous disease. There is a trace left pleural effusion. There is a 2.4 cm nodule in right thyroid lobe. The heart size is norm al. No pericardial effusion. There is no pulmonary embolus. Thoracic aorta is normal in caliber and d emonstrates mild atherosclerosis. No dissection. Calcifications in the liver and spleen are consisten t with old granulomatous disease. There is cortical thinning of the kidneys. There is severe cervical and thoracic spondylosis. There are changes of posterior fusion procedure in lumbar spine. IMPRESSION: 1. Mild aortic atherosclerosis. No aneurysm or dissection. 2. Moderate emphysema. 3. 2.4 cm right thyroid nodule designated TI-RADS TR3 on prior ultrasound. Thyroid ultrasound is giovany mmended in one year. Reviewed, dictated and finalized at location A. IMPRESSION: 1. Mild aortic atherosclerosis. No aneurysm or dissection. 2. Moderate emphysema. 3. 2.4 cm right thyroid nodule designated TI-RADS TR3 on prior ultrasound. Thyr oid ultrasound is recommended in one year.
--- NOTE | ~2019-11-09 | US_ITS ---
EXAMINATION:US venous doppler LE BI INDICATION:Leg swelling and redness TECHNIQUE: Multiple grayscale, color flow and Doppler images of the bilateral lower extremity deep ve nous systems were obtained and reviewed. COMPARISON:10/08/2019 FINDINGS: The common femoral, superficial femoral and popliteal veins demonstrate normal respiratory variation, augmentation and compressibility. Color flow is also seen within the posterior tibial, pe roneal, greater saphenous and profunda veins. No abscess identified. IMPRESSION: 1: No lower extremity deep venous thrombosis. Reviewed, dictated and finalized at location A.
[2019-11-09 19:07] VITALS: BP 139/54; PULSE 85; RESP 24; TEMP 36.4; O2SAT 100
[2019-11-09 20:43] LABS: Basophils Absolute Auto 0.1 K/mm3 (0.0-0.1); Basophils Percent Auto 0.9 % (0.2-1.2); Eosinophils Absolute Auto 0.4 K/mm3 (0-0.3); Eosinophils Percent Auto 5.7 % (0-4.4); Hematocrit 33.5 % (37.0-47.0); Hemoglobin 10.3 g/dL (12.0-15.0); Immature Granulocyte Absolute 0.05 K/mm3 (0.00-0.031); Immature Granulocyte Percent A 0.7 % (0-0.5); Lymphocytes Absolute Auto 1.14 K/mm3 (0.9-3.2); Lymphocytes Percent Auto 15.1 % (18.3-44.2); Mean Corpuscular HGB Conc 30.7 g/dl (32-36); Mean Corpuscular Hemoglobin 27.9 pg (26-34); Mean Corpuscular Volume 90.8 fl (80-100); Mean Platelet Volume 9.5 fl (7.4-10.4); Monocytes Absolute Auto 1.1 K/mm3 (0.1-0.6); Neutrophils Absolute Auto 4.8 K/mm3 (1.3-6.7); Neutrophils Percent Auto 63.6 % (45.5-73.1); Platelet Count Result 372 k/mm3 (150-375); Red Blood Count 3.69 M/mm3 (4.2-5.4); Red Cell Distribution Width 13.7 % (11.5-14.5); White Blood Count 7.6 K/mm3 (4.5-10.0)
--- NOTE | 2019-11-09 20:51 | ED.GENADULT ---
HPI - General Adult General Chief complaint: Skin/Abscess/Foreign Body <Marco Amaya PA-C - Last Filed: 11/09/19 22:15> Stated complaint: rt leg swelling <Marco Amaya PA-C - Last Filed: 11/09/19 22:15> Time Seen by Provider: 11/09/19 19:48 <Marco Amaya PA-C - Last Filed: 11/09/19 22:15> Source: patient, family and old records reviewed <JONATHAN Schmidt Last Filed: 11/09/19 22:15> Mode of arrival: ambulatory <JONATHAN Schmidt Last Filed: 11/09/19 22:15> Limitations: no limitations <JONATHAN Schmidt Last Filed: 11/09/19 22:15> History of Present Illness HPI narrative: Patient is a 79-year-old female who presents for EMS from home noting that she has been having bilateral lower leg pain with history of edema home health is been present has been performing wraps noting that the bilateral legs are now both red and sore. Patient is a poor historian and does not give a great timeline as the evolution of her symptoms but notes that she has been having home health come and wrap her legs which were weeping and more swollen. Patient denies fever chills nausea vomiting or URI symptoms . Patient wears chronic O2 and has history of COPD. Patient on arrival is in the room in no distress and notes that the pain is worse with activity and movement. Patient states she is mainly wheelchair bound. <JONATHAN Schmidt Last Filed: 11/09/19 22:15> Related Data Home medications: Home Medications Medication Instructions Recorded Confirmed celecoxib 100 mg capsule 100 mg PO BID 03/16/19 10/04/19 cholecalciferol (vitamin D3) 125 5,000 unit PO DAILY 03/16/19 10/04/19 mcg (5,000 unit) tablet docusate sodium 100 mg capsule 100 mg PO BID PRN 03/16/19 10/04/19 famotidine 10 mg tablet 10 mg PO DAILY 03/16/19 10/04/19 oxycodone-acetaminophen 10 mg-325 1 tablet PO Q6H PRN tablet 03/16/19 10/04/19 mg tablet Pepto-Bismol 2 tablet PO MONTHLY PRN 07/12/19 10/04/19 PreserVision AREDS-2 1 tablet PO BID 07/12/19 10/04/19 sodium chloride [[place] Nasal] 2 spray INTRANASAL PRN PRN 07/12/19 10/04/19 zolpidem 5 mg PO HS PRN 09/05/19 10/04/19 triamterene-hydrochlorothiazid 1 cap PO DAILY 10/04/19 10/04/19 <Marco Amaya PA-C - Last Filed: 11/09/19 22:15> Allergies/adverse reactions: Allergies Allergy/AdvReac Type Severity Reaction Status Date / Time Sulfa (Sulfonamide Allergy Unknown THROAT, Verified 11/09/19 19:12 Antibiotics) TONGUE SWELLING,Unknown aspirin Allergy Other Verified 11/09/19 19:12 <Marco Amaya PA-C - Last Filed: 11/09/19 22:15> Review of Systems Review of Systems: All systems reviewed & are unremarkable except as noted in HPI and below <Marco Amaya PA-C - Last Filed: 11/09/19 22:15> [facility] Past Medical History Medical History: Medical History Abdominal bruit Renal US negative for stenosis 08/2019. Aortic stenosis Mild on echocardiogram from October 2018. Borderline diabetic Cataracts, bilateral Maturing cataracts bilaterally. Chronic diastolic (congestive) heart failure Echocardiogram October 2018 demonstrated normal left ventricular systolic function with EF of 65-70% grade 1 diastolic dysfunction mild aortic stenosis with a normal RVSP of 34. Chronic hyponatremia Chronic pain syndrome With chronic back, bilateral shoulder, and left knee pain. Chronic respiratory failure with hypoxia and hypercapnia Chronic shortness of breath COPD with emphysema Dependence on supplemental oxygen On 3 liters nasal cannula. Essential (primary) hypertension Fractured coccyx GERD (gastroesophageal reflux disease) History of angina History of tobacco abuse Hyponatremia Insomnia Liver mass 21 mm likely benign noted on imaging for 2017. Obstructive sleep apnea Noncompliant with CPAP therapy at home. Thyroid nodule On CT scan from July 2017. Ulcerative colitis Ve
[2019-11-09 20:53] LABS: Prothrombin Time 12.6 Seconds (11.1-14.7)
[2019-11-09 20:55] LABS: Alanine Aminotransferase 15 U/L (4-35); Albumin Level 3.5 g/dL (3.5-5.1); Alkaline Phosphatase 79 U/L (38-126); Aspartate Amino Transferase 23 U/L (14-36); Bilirubin,Total 0.3 mg/dL (0.2-1.3); Blood Urea Nitrogen 16 mg/dL (7-17); Calcium 8.8 mg/dL (8.4-10.2); Carbon Dioxide 37 mmol/L (22-30); Chloride 91 mmol/L (98-107); Estimated CRCL calculation 78 ml/min; Estimated Glomerular Filt Rate > 60; Glucose 107 mg/dL (65-105); Magnesium 1.7 mg/dL (1.6-2.3); Potassium 3.8 mmol/L (3.4-5.0); Sodium 132 mmol/L (137-145)
--- NOTE | 2019-11-09 20:58 | ECG_ITS ---
Measurements Intervals [place] Rate: 91 P: 86 MS: 156 QRS: 28 QRSD: 88 T: 62 QT: 339 QTc: 419 Interpretive Statements SINUS RHYTHM BASELINE ARTIFACT- I, II, AVR, AVL, AVF, V6 NORMAL ECG Electronically Signed On 11-10-2019 6:51:45 CDT by Moiz Melton D.O.
[2019-11-09 21:00] VITALS: BMI 36.1
[2019-11-09 21:03] LABS: NT Pro B Type Natriuretic Pept 451 PG/ML (5-100)
[2019-11-09] MEDS: MORPHINE SULFATE 2 MG/ML INJ IV PUSH (21:03)
[2019-11-09] MEDS: ONDANSETRON INJ 4 MG/2 ML VIAL IV PUSH (21:03)
[2019-11-09 22:07] LABS: Add Urine Microscopic? YES; Appearance Urine Clear (Clear); Bilirubin Urine Negative (Negative); Blood Urine Negative (Negative); Color Urine Yellow (Yellow); Glucose Urine UA Negative (Negative); Ketones Urine Negative (Negative); Leukocyte Esterase Ur Negative LEU/UL (Negative); Mucus Urine Rare /lpf; Nitrate Urine Negative (Negative); Protein Urine Negative (Negative); RBC Urine 0-2 /hpf (0-2); Specific Grav Ur 1.019 (1.001-1.035); Urobilinogen Urine Negative mg/dL (<2.0); WBC Urine 0-3 /hpf
[2019-11-09 22:24] VITALS: BP 115/53; PULSE 92; RESP 19; O2SAT 96
[2019-11-09] MEDS: MORPHINE SULFATE 4 MG/ML INJ IV PUSH (22:38)
[2019-11-09 23:13] VITALS: BP 121/62; PULSE 94; RESP 22; TEMP 36.6; O2SAT 99
[2019-11-09 23:30] VITALS: BP 139/62; PULSE 94; RESP 20; TEMP 36.8; O2SAT 92
--- NOTE | 2019-11-09 23:30 | ADMGEN ---
This patient, Belinda Black, was admitted to 3 [facility] Surg Room 302-01. Patient/family oriented to hospital policies and general routines including ID bracelet, bed and alarms, visiting hours, pain management, procedures, bathroom and other care routines, personal items, smoking policy, room service/diet, and visiting hours. Valuables list has been completed. Information on how to activate the Rapid Response Team has been discussed. Patient/Family are encouraged to report perceived risks to care and to ask questions if they do not understand what they are told or what they should do.
[2019-11-10] VITALS (17 sets, daily range): BP systolic 107–150; BP diastolic 52–78; PULSE 78–100; RESP 16–20; TEMP 36.3–36.8; O2SAT 90–100
[2019-11-10] LABS: Lactic Acid 0.6 mmol/L (0.7-2.1)
[2019-11-10] MEDS: LACTATED RINGERS 1,000 ML 75 ML IV CONT (00:07)
--- NOTE | 2019-11-10 00:27 | PC.NURSE ---
Attempted to call spouse, Yamil, at number provided to go over med rec. Was not able to reach. Left voicemail asking him to call back.
--- NOTE | 2019-11-10 01:51 | PC.NURSE ---
Spouse, Yamil, called back and was able to provide med rec.
[2019-11-10 06:51] LABS: Basophils Absolute Auto 0.1 K/mm3 (0.0-0.1); Basophils Percent Auto 0.8 % (0.2-1.2); Eosinophils Absolute Auto 0.4 K/mm3 (0-0.3); Eosinophils Percent Auto 6.5 % (0-4.4); Hematocrit 30.8 % (37.0-47.0); Hemoglobin 9.5 g/dL (12.0-15.0); Immature Granulocyte Absolute 0.05 K/mm3 (0.00-0.031); Immature Granulocyte Percent A 0.8 % (0-0.5); Lymphocytes Absolute Auto 0.97 K/mm3 (0.9-3.2); Lymphocytes Percent Auto 16.3 % (18.3-44.2); Mean Corpuscular HGB Conc 30.8 g/dl (32-36); Mean Corpuscular Hemoglobin 28.3 pg (26-34); Mean Corpuscular Volume 91.7 fl (80-100); Mean Platelet Volume 9.3 fl (7.4-10.4); Monocytes Percent Auto 16.3 % (2.6-8.5); Neutrophils Absolute Auto 3.5 K/mm3 (1.3-6.7); Neutrophils Percent Auto 59.3 % (45.5-73.1); Platelet Count Result 329 k/mm3 (150-375); Red Blood Count 3.36 M/mm3 (4.2-5.4); Red Cell Distribution Width 13.8 % (11.5-14.5)
[2019-11-10 07:03] LABS: Alanine Aminotransferase 14 U/L (4-35); Albumin Level 3.1 g/dL (3.5-5.1); Alkaline Phosphatase 66 U/L (38-126); Aspartate Amino Transferase 21 U/L (14-36); Bilirubin,Total 0.3 mg/dL (0.2-1.3); Blood Urea Nitrogen 11 mg/dL (7-17); Calcium 8.5 mg/dL (8.4-10.2); Carbon Dioxide 38 mmol/L (22-30); Chloride 91 mmol/L (98-107); Estimated CRCL calculation 67 ml/min; Estimated Glomerular Filt Rate > 60; Glucose 104 mg/dL (65-105); Potassium 3.6 mmol/L (3.4-5.0); Sodium 132 mmol/L (137-145)
--- NOTE | 2019-11-10 07:28 | PM.CNGS ---
Assessment and Plan Assessment and plan (1) Ileus: Onset Date: ~10/2019 Code(s): K56.7 - Ileus, unspecified Status: Acute Assessment and Plan: CT scan seemed to indicate that this is the problem. She may be somewhat constipated because she has been taking Tylenol No. 3 for musculoskeletal pain. Will repeat abdominal x-ray today if this does shows signs of obstruction may consider small-bowel follow-through to prove that she does or does not have this. She has not had previous significant surgery in the abdomen so it is unlikely that she has a lot of adhesions. (2) CHF (congestive heart failure): Onset Date: Unknown Qualifiers: Heart failure chronicity: unspecified Heart failure type: unspecified Qualified Code(s): I50.9 - Heart failure, unspecified Code(s): I50.9 - Heart failure, unspecified Status: Acute Assessment and Plan: As per medicine treatment. proBNP is high. (3) Hyponatremia: Onset Date: Unknown Code(s): E87.1 - Hypo-osmolality and hyponatremia Status: Acute Assessment and Plan: Supplementation to get this and normal range of possible would be beneficial for her bowel function. (4) Chronic shortness of breath: Onset Date: Unknown Code(s): R06.02 - Shortness of breath Status: Acute Assessment and Plan: Most likely related to CHF and her COPD. (5) Calf tenderness: Onset Date: Unknown Code(s): M79.669 - Pain in unspecified lower leg Status: Acute Assessment and Plan: Apparently this has been present for about 2-3 weeks. There is a family practice note in the chart from of visit couple of weeks ago when the treatments for her legs at home were started. (6) Constipation: Qualifiers: Constipation type: unspecified constipation type Qualified Code(s): K59.00 - Constipation, unspecified Code(s): K59.00 - Constipation, unspecified Status: Resolved Assessment and Plan: Recent musculoskeletal complaints led to her resumption of use of mild narcotics for the pain. This is probably pushed request constipation and may have given the ileus like picture on her CT yesterday. (7) Essential (primary) hypertension: Onset Date: Unknown Code(s): I10 - Essential (primary) hypertension Status: Acute (8) Chronic diastolic (congestive) heart failure: Onset Date: Unknown Code(s): I50.32 - Chronic diastolic (congestive) heart failure Status: Chronic (9) Obstructive sleep apnea: Onset Date: Unknown Code(s): G47.33 - Obstructive sleep apnea (adult) (pediatric) Status: Chronic Additional Plan Other possibilities are an ileus related to pneumonia since this is suggested by her chest x-ray. Interestingly there were no comments on the lower lung field on her CT. As far as her legs I think that to we could consider having lotion applied to these and then if it is more comfortable for some compression hose followed by SCD hose. They seem be somewhat tender so she may not tolerate the SCD hose at this time. I will order a 1 dulcolax suppository for this morning and if her x-ray this morning shows still signs of small-bowel obstruction consider proceeding with a small-bowel follow-through to prove whether not she has any small-bowel obstruction. History of Present Illness Consult details Consult date: 11/10/19 Reason for consult: abdominal pain Requesting physician: Justus Herman MD Narrative: The patient is a 79-year-old female who presented for EMS from home noting that she has been having bilateral lower leg pain with history of edema. She presented to the [facility] ED on 11/09/2019. A home health nurse has been present and has been performing wraps noting that the bilateral legs are now both red and sore. Patient is a poor historian and does not give a great timeline as the evolution of her symptoms but notes that she has
[2019-11-10] MEDS: FAMOTIDINE 20 MG/2 ML VIAL IV PUSH ×2 (07:59→21:16)
--- NOTE | 2019-11-10 09:14 | PM.IMHP ---
H&P: HPI History of Present Illness Chief complaint: Ileus, abdominal pain <Erum Nolan PA-C - Last Filed: 11/10/19 13:21> Narrative: Belinda Black is a 79 year old female who has a past medical history of venous stasis who presented emergency room for being miserable for the last few days . The patient states that she just feels miserable and is on a lot of pain. She explains that her legs are significantly painful since she cannot take it anymore. She does have chronic pain in her back and knees that she takes Percocet 10 mg 4 but the medication is not touching her leg pain. Patient was alert and oriented for me and I also got information from her at bedside. She states that she has chronic swelling and mild erythema to both lower extremities but the states in the last few weeks it is become beefy red and different than her normal. He mentions that the left 1 had a opening a few weeks ago with discharge and home health was treating it and it eventually healed over and she no longer has any discharge to the area. The patient is remarkably tender and is now wheelchair and bed-bound. She says they are elevated for a good portion of the day as she lays in bed and also sits in a recliner and has them elevated a lot of the time as well. She does feel weak but she says that is been going on for a while. She denies fevers, chills, nausea, vomiting, shortness of breath, chest pain, diarrhea, numbness, tingling time, dysuria, or coughing. She had some abdominal pain yesterday that has completely resolved. She has small bowel movement this morning and states that she has chronic constipation due to her pain medication. Has chronic respiratory failure but no additional shortness of breath. She is on 3 L of oxygen at home and takes inhalers as needed. She has no increased respiratory complaints. She last went to her primary care doctor last week and they were going to order her a bunch test but she has not had them done yet. <JONATHAN Ferguson Last Filed: 11/10/19 13:21> Review of Systems Review of Systems: All systems reviewed & are unremarkable except as noted in HPI and below <Erum Nolan PA-C - Last Filed: 11/10/19 13:21> [facility] Past Medical History Medical History: Medical History Abdominal bruit Renal US negative for stenosis 08/2019. Aortic stenosis Mild on echocardiogram from October 2018. Borderline diabetic Cataracts, bilateral Maturing cataracts bilaterally. Chronic diastolic (congestive) heart failure (Unknown) Echocardiogram October 2018 demonstrated normal left ventricular systolic function with EF of 65-70% grade 1 diastolic dysfunction mild aortic stenosis with a normal RVSP of 34. Chronic hyponatremia Chronic pain syndrome With chronic back, bilateral shoulder, and left knee pain. 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 Essential (primary) hypertension (Unknown) Fractured coccyx GERD (gastroesophageal reflux disease) History of angina History of tobacco abuse Hyponatremia (Unknown) Insomnia Liver mass 21 mm likely benign noted on imaging for 2017. Obstructive sleep apnea Noncompliant with CPAP therapy at home. Thyroid nodule On CT scan from July 2017. Ulcerative colitis Venous stasis dermatitis of both lower extremities Vitamin D deficiency <Erum Nolan PA-C - Last Filed: 11/10/19 13:21> Surgical History Surgical History: Surgical History History of arthroscopy of left knee (~2000) History of lumbar surgery (~2001) History of tonsillectomy History of total right knee replacement (~01/2012) History of ventral hernia repair With abdominoplasty. <Erum Nolan PA-C - Last Filed: 11/10/19
[2019-11-10] MEDS: MORPHINE SULFATE 4 MG/ML INJ 2 MG IV PUSH (10:53)
--- NOTE | 2019-11-10 10:59 | PCOTNOTE ---
Attempted OT evaluation on this date, Pt declined at this time due to increased pain and reported I am not getting up today , RN notified will attempt at later time..
--- NOTE | 2019-11-10 11:05 | PCPTNOTE ---
PT/OT orders received...patient emphatically refuses therapy today...remarks several times of pain all over, but particularly in her legs...multiple attempts, pt also refused NSG...will see tomorrow as appropriate
[2019-11-10] MEDS: ALBUTEROL SULFATE (*SP) AEROSOL 1 PUFF 2 PUFF INHALATION (12:50)
[2019-11-10] MEDS: GABAPENTIN 300 MG CAPSULE PO (12:55)
[2019-11-10] MEDS: EUCERIN CREAM 120 GM JAR 1 APPLIC TOPICAL (12:55)
[2019-11-10] MEDS: MORPHINE SULFATE 4 MG/ML INJ 3 MG IV PUSH (12:56)
[2019-11-10] MEDS: ENOXAPARIN 40 MG/0.4 ML SYRINGE SUB-Q (12:58)
[2019-11-10] MEDS: polyethylene glycoL 3350 17 GM POWD.PACK PO (13:51)
[2019-11-10] MEDS: ALBUTEROL SULFATE NEB 2.5 MG/0.5 ML INH 5 MG INHALATION ×2 (16:17→19:56)
[2019-11-10] MEDS: IPRATROPIUM BR 0.02% INH SOLN 0.5 MG/2.5 ML VIAL INHALATION ×2 (16:17→19:55)
[2019-11-10 17:16] LABS: Glucose Point of Care 127 (65-105)
[2019-11-10 17:47] LABS: Alveolar/Arterial O2 Gradient 101.3 mmHg; Base Excess ABG 4.3 mEq/l (+/-2.0); Device VENTURI MASK; Fractional Inspired Oxygen 30 %; HCO3 ABG 29.2 mEq/l (22.0-26.0); Modified Allen's Test Pass; Oxygen Content ABG 13.4 %vol (16.0-22.0); Oxyhemoglobin 87.8 % THb (90.0-100.0); PCO2 ABG 45.6 mmHg (35.0-45.0); PO2 FiO2 Ratio Arterial Blood 1.97 %; Site Drawn LEFT RADIAL; Total Hemoglobin 10.8 g/dL (12.0-18.0); pH ABG 7.425 (7.350-7.450)
--- NOTE | 2019-11-10 17:54 | ECG_ITS ---
Measurements Intervals [place] Rate: 95 P: 72 OK: 179 QRS: 22 QRSD: 96 T: 49 QT: 311 QTc: 392 Interpretive Statements SINUS RHYTHM BASELINE ARTIFACT- I, II, III, AVL, V3 BORDERLINE ECG Electronically Signed On 11-10-2019 18:29:16 CDT by Moiz Melton D.O.
--- NOTE | 2019-11-10 17:58 | PC.NURSE ---
Johanna RN and DARRIN Arellano at bedside to reposition patient. Patient found to be hypoxic and lethargic, sats in the 70's on 3L NC. Patient's oxygen increased to 5L NC, RT called. I notified Dr. Herman around 1730, who is covering for MELIZA Danielson. came and assessed patient. STAT ABG and chest xray ordered and obtained. Patient on BiPAP and being transferred to IMU. at bedside.
--- NOTE | 2019-11-10 18:45 | PC.NURSE ---
This patient, Belinda Black, was received from [facility] on 11/10/19 at 1845. Personal belongings list checked and signed. Patient/family oriented to unit policies and routines
--- NOTE | 2019-11-10 18:52 | PC.NURSE ---
This patient, Belinda Black, was transferred to [IMU ] on 11/10/19 at 1852. Personal belongings sent with patient. Report given to [ Renee]. Appropriate documentation sent with patient.
[2019-11-10 19:14] LABS: Magnesium 1.7 mg/dL (1.6-2.3)
[2019-11-10 19:26] LABS: Troponin I 0.013 ng/mL (0.000-0.034)
[2019-11-10 19:49] LABS: Alanine Aminotransferase 15 U/L (4-35); Albumin Level 3.5 g/dL (3.5-5.1); Alkaline Phosphatase 72 U/L (38-126); Aspartate Amino Transferase 24 U/L (14-36); Bilirubin,Total 0.2 mg/dL (0.2-1.3); Blood Urea Nitrogen 11 mg/dL (7-17); CRP 4.1 mg/dL (<1.0); Calcium 8.6 mg/dL (8.4-10.2); Carbon Dioxide 32 mmol/L (22-30); Chloride 92 mmol/L (98-107); Estimated CRCL calculation 79 ml/min; Estimated Glomerular Filt Rate > 60; Glucose 137 mg/dL (65-105); Potassium 3.8 mmol/L (3.4-5.0); Sodium 133 mmol/L (137-145)
[2019-11-10 19:55] LABS: NT Pro B Type Natriuretic Pept 691 PG/ML (5-100)
[2019-11-10 22:02] LABS: Hematocrit 30.6 % (37.0-47.0); Hemoglobin 9.6 g/dL (12.0-15.0); Mean Corpuscular HGB Conc 31.4 g/dl (32-36); Mean Corpuscular Hemoglobin 28.2 pg (26-34); Mean Platelet Volume 9.6 fl (7.4-10.4); Platelet Count Result 321 k/mm3 (150-375); Red Cell Distribution Width 13.8 % (11.5-14.5); White Blood Count 7.3 K/mm3 (4.5-10.0)
[2019-11-10 22:13] LABS: Lactic Acid Reflex 1.7 mmol/L (0.7-2.1)
[2019-11-10 22:14] LABS: D Dimer 1.03 ug/mL (<0.48)
[2019-11-10 22:26] LABS: Troponin I 0.014 ng/mL (0.000-0.034)
[2019-11-11] VITALS (28 sets, daily range): BP systolic 112–152; BP diastolic 31–64; PULSE 76–100; RESP 13–22; TEMP 35.7–37.1; O2SAT 95–100
[2019-11-11] MEDS: IPRATROPIUM BR 0.02% INH SOLN 0.5 MG/2.5 ML VIAL INHALATION ×6 (00:05→21:32)
[2019-11-11] MEDS: ALBUTEROL SULFATE NEB 2.5 MG/0.5 ML INH 5 MG INHALATION ×6 (00:05→21:32)
--- NOTE | 2019-11-11 00:55 | PC.NURSE ---
CTA OF THE CHEST ORDERED BY JOSELIN HAIDER DUE TO D-DIMER 1.03 AND HYPOXIA. I ATTEMPTED TO CONTACT MR. LOPEZ AT [phone] AND WAS SENT TO [facility]. THE PATIENT IS NOW CONVERSIVE, ORIENTED X 3. RISKS AND BENEFITS OF THE TEST EXPLAINED TO THE PATIENT AND SHE IS REFUSING THE CTA UNTIL SHE CAN TALK TO HER IN THE MORNING. DR HERNANDEZ NOTIFIED.
[2019-11-11 01:06] LABS: Troponin I 0.015 ng/mL (0.000-0.034)
[2019-11-11 04:31] LABS: Hemoglobin 9.4 g/dL (12.0-15.0); Mean Corpuscular HGB Conc 31.3 g/dl (32-36); Mean Corpuscular Hemoglobin 28.3 pg (26-34); Mean Corpuscular Volume 90.4 fl (80-100); Mean Platelet Volume 9.4 fl (7.4-10.4); Platelet Count Result 319 k/mm3 (150-375); Red Blood Count 3.32 M/mm3 (4.2-5.4); Red Cell Distribution Width 13.7 % (11.5-14.5); White Blood Count 7.3 K/mm3 (4.5-10.0)
[2019-11-11 04:49] LABS: Transferrin 219 mg/dL (206-381)
--- NOTE | 2019-11-11 05:10 | PC.NURSE ---
Pt's returned call at 0443. He had been called to obtain consent for cta of the chest to rule out pe. I explained that the CTA had been ordered due to elevated d-dimer, but that pt was more alert and refused scan until she spoke to him. seemed very worried and asked why it needed done again and why she would refuse. I explained about the need for consent for the contrast. Pt's stated that he would be right up. I told him that he could come up at 10 am. I told him that pt's condition was much improved and that she was responding to questions and answering appropriately. He then began worrying that she had been in last month and they had talked about a clot in her lungs but that nothing more was said about it. I reported to him the CTA that they had done last month came back negative for a clot. I assured him that pt was currently stable and doing well on the bipap. He stated that he wanted to come in and talk it over with her.
[2019-11-11 05:19] LABS: Blood Urea Nitrogen 10 mg/dL (7-17); Calcium 8.6 mg/dL (8.4-10.2); Carbon Dioxide 36 mmol/L (22-30); Chloride 91 mmol/L (98-107); Estimated CRCL calculation 67 ml/min; Estimated Glomerular Filt Rate > 60; Glucose 114 mg/dL (65-105); Potassium 3.7 mmol/L (3.4-5.0); Sodium 131 mmol/L (137-145)
[2019-11-11 05:49] LABS: Folic Acid 13.6 ng/mL (2.76->20)
[2019-11-11 05:51] LABS: Iron 39 ug/dL (37-170)
[2019-11-11 06:05] LABS: Percent Iron Saturation 13 % (20-50)
[2019-11-11 08:41] LABS: Glucose Point of Care 121 (65-105)
[2019-11-11] MEDS: GABAPENTIN 300 MG CAPSULE PO (09:01)
[2019-11-11] MEDS: ENOXAPARIN 40 MG/0.4 ML SYRINGE SUB-Q (09:02)
[2019-11-11] MEDS: EUCERIN CREAM 120 GM JAR 1 APPLIC TOPICAL (09:02)
[2019-11-11] MEDS: FAMOTIDINE 20 MG/2 ML VIAL IV PUSH ×2 (09:02→21:31)
[2019-11-11] MEDS: ACETAMINOPHEN 325 MG TABLET PO ×2 (09:06→22:19)
[2019-11-11] MEDS: FUROSEMIDE 20 MG TABLET PO (10:36)
[2019-11-11] MEDS: POTASSIUM CHLORIDE 10 MEQ TABLET.ER PO ×2 (10:36→17:48)
--- NOTE | 2019-11-11 11:56 | PM.IMPN ---
Progress Note: A&P Assessment and Plan (1) Acute metabolic encephalopathy: Code(s): G93.41 - Metabolic encephalopathy Status: Acute Assessment and Plan: -----Pt seems more altered today than her baseline. She is easily arousable but somnolent. She has not had any pain medication and her oxygen is currently at 100%. No definite neurological deficits on exam. Blood cultures are negative. Vitals are stable. Will obtain CT of the brain, ABG, lactic acid, ammonia level and TSH. I am unsure how the patient slept with the BiPAP overnight, could be exertion. Gabapentin was started yesterday and this will be discontinued. No other new medications other than ceftriaxone. (2) Lower extremity cellulitis: Code(s): L03.119 - Cellulitis of unspecified part of limb Status: Acute Assessment and Plan: -----patient has significant erythema and tenderness to the lower extremities. Although bilateral cellulitis is rare, I do believe there may be a component of infection here as it is improving with IV antibiotics so far. We will try the keep the legs elevated as much as possible. Will continue ceftriaxone and vancomycin at this time. I did not suspect Pseudomonas although she is a new diabetic. She has no discharge or abscess to lower extremities at this time. No DVT seen on lower extremity ultrasound. Blood cultures have no growth to date. White blood cell count within normal limits. CRP slightly elevated. Plan to elevate the legs. (3) Generalized weakness: Code(s): R53.1 - Weakness Status: Acute Assessment and Plan: -----patient has had increasing generalized weakness from what is likely debility the last few months. She has untreated sleep apnea, chronic respiratory failure, and new onset diabetes. She was not working with physical therapy at home and her mobility decreased significantly. I do believe she will benefit from SNF to get her back to her baseline. She is at risk for being bed-bound if this is not addressed. PT and OT have been ordered (4) CHF (congestive heart failure): Onset Date: Unknown Qualifiers: Heart failure chronicity: unspecified Heart failure type: unspecified Qualified Code(s): I50.9 - Heart failure, unspecified Code(s): I50.9 - Heart failure, unspecified Status: Chronic Assessment and Plan: -----chronic diastolic heart failure. Today her upper extremities are swollen so I will do another BNP. Fluids have been stopped. Last echo October 2018 showed normal EF with grade 1 diastolic. Monitor fluid balance. Consider Lasix IV, await pending labs. (5) Abdominal pain: Qualifiers: Abdominal location: generalized Qualified Code(s): R10.84 - Generalized abdominal pain Code(s): R10.9 - Unspecified abdominal pain Status: Acute Assessment and Plan: -----she had mild abdominal pain yesterday which showed a possible ileus or enteritis. No abdominal pain today. Patient has chronic constipation due to pain medications. Surgery saw the patient. She also has a history of UC but I do not suspect any flares at this time. (6) Hyponatremia: Onset Date: Unknown Code(s): E87.1 - Hypo-osmolality and hyponatremia Status: Acute Assessment and Plan: -----chronic hyponatremia at her baseline. Monitor (7) Chronic respiratory failure with hypoxia and hypercapnia: Code(s): J96.11 - Chronic respiratory failure with hypoxia; J96.12 - Chronic respiratory failure with hypercapnia Status: Acute Assessment and Plan: -----continue home oxygen settings and inhalers. CTA ordered as she had some hypoxia yesterday but now is back to her home O2 setting with 100% oxygen. No additional hypoxia or shortness of breath noted (8) Constipation: Qualifiers: Constipation type: unspecified constipation type Qualified Code(s): K59.00 - Con
[2019-11-11 12:59] LABS: Alveolar/Arterial O2 Gradient 80.7 mmHg; Base Excess ABG 7.5 mEq/l (+/-2.0); Carboxyhemoglobin 0.3 % THb (0-2.0); Device NASAL CANNULA; Fractional Inspired Oxygen 32 %; HCO3 ABG 33.5 mEq/l (22.0-26.0); Methemoglobin ABG 0.3 %THb (0-1.5); Modified Allen's Test Pass; Oxygen Content ABG 13.7 %vol (16.0-22.0); Oxygen Saturation ABG 95.9 % (95.0-100.0); PCO2 ABG 55.4 mmHg (35.0-45.0); PO2 ABG 82.6 mmHg (80.0-100.0); PO2 FiO2 Ratio Arterial Blood 2.58 %; Reduced Hemoglobin 4.4 %THb (0-5.0); Site Drawn RIGHT RADIAL; Total Hemoglobin 10.2 g/dL (12.0-18.0)
[2019-11-11 16:14] LABS: Lactic Acid Reflex 1.5 mmol/L (0.7-2.1)
[2019-11-11 16:17] LABS: CRP 4.5 mg/dL (<1.0)
[2019-11-11 16:23] LABS: NT Pro B Type Natriuretic Pept 397 PG/ML (5-100)
[2019-11-11 16:31] LABS: Ammonia < 9 umol/L (9-30)
[2019-11-11 17:16] LABS: Glucose Point of Care 161 (65-105)
[2019-11-11 17:37] LABS: Thyroid Stimulating Hormone Reflex 0.658 uIU/mL (0.465-4.68)
[2019-11-11 17:41] LABS: Glucose Point of Care 133 (65-105)
--- NOTE | 2019-11-11 17:46 | PM.PNGS ---
Progress Note: A&P Assessment and Plan (1) Ileus: Onset Date: ~10/2019 Code(s): K56.7 - Ileus, unspecified Status: Acute Assessment and Plan: CT scan seemed to indicate that this is the problem. She may be somewhat constipated because she has been taking Tylenol No. 3 for musculoskeletal pain. the repeat obstructive series today shows no signs of bowel obstruction. She has not had previous significant surgery in the abdomen so it is unlikely that she has a lot of adhesions. (2) CHF (congestive heart failure): Onset Date: Unknown Qualifiers: Heart failure chronicity: unspecified Heart failure type: unspecified Qualified Code(s): I50.9 - Heart failure, unspecified Code(s): I50.9 - Heart failure, unspecified Status: Chronic Assessment and Plan: As per medicine treatment. proBNP is high. (3) Hyponatremia: Onset Date: Unknown Code(s): E87.1 - Hypo-osmolality and hyponatremia Status: Acute Assessment and Plan: Supplementation to get this and normal range of possible would be beneficial for her bowel function. (4) Chronic shortness of breath: Onset Date: Unknown Code(s): R06.02 - Shortness of breath Status: Acute Assessment and Plan: Most likely related to CHF and her COPD. (5) Calf tenderness: Onset Date: Unknown Code(s): M79.669 - Pain in unspecified lower leg Status: Acute Assessment and Plan: Apparently this has been present for about 2-3 weeks. There is a family practice note in the chart from of visit couple of weeks ago when the treatments for her legs at home were started. (6) Constipation: Qualifiers: Constipation type: unspecified constipation type Qualified Code(s): K59.00 - Constipation, unspecified Code(s): K59.00 - Constipation, unspecified Status: Resolved Assessment and Plan: Recent musculoskeletal complaints led to her resumption of use of mild narcotics for the pain. This is probably pushed her toward constipation and may have given the ileus like picture on her CT Tuesday. (7) Essential (primary) hypertension: Onset Date: Unknown Code(s): I10 - Essential (primary) hypertension Status: Acute (8) Chronic diastolic (congestive) heart failure: Onset Date: Unknown Code(s): I50.32 - Chronic diastolic (congestive) heart failure Status: Chronic (9) Obstructive sleep apnea: Onset Date: Unknown Code(s): G47.33 - Obstructive sleep apnea (adult) (pediatric) Status: Chronic Additional Plan Other possibilities are an ileus related to pneumonia since this is suggested by her chest x-ray. Interestingly there were no comments on the lower lung field on her CT. As far as her legs I think that to we could consider having lotion applied to these and then if it is more comfortable for some compression hose followed by SCD hose. They seem be somewhat tender so she may not tolerate the SCD hose at this time. Consider MiraLax daily until having bowel movements regularly. Since Gi function has returned and pt has no abd. pain Gen Surg service will sign off. Please call if we can help with anything else. Time Spent With Patient Time with patient: less than 15 minutes Subjective Subjective Date/Time Seen: 11/11/19 16:46 Patient seen with her IMU nurse. She was on BiPAP when I talked to her. She did answer my questions. She denied and domicile pain. She states she has been passing some flatus. Review of Systems Constitutional: Constitutional: Reports no additional constitutional complaints ENT: Reports other (Mucous Membranes moist.) Cardiovascular: Cardiovascular: Denies dyspnea Respiratory: Respiratory: Denies pain on inspiration and Reports dyspnea ( Mild to moderate,) Musculoskeletal: Musculoskeletal: Reports other (No calf swelling or edema) Integumentary/Breasts: Skin/Breast: Re
[2019-11-11 23:13] LABS: Glucose Point of Care 120 (65-105)
[2019-11-12] VITALS (27 sets, daily range): BP systolic 102–133; BP diastolic 45–70; PULSE 73–97; RESP 12–24; TEMP 35.9–36.7; O2SAT 96–100
[2019-11-12] MEDS: IPRATROPIUM BR 0.02% INH SOLN 0.5 MG/2.5 ML VIAL INHALATION ×6 (01:35→20:30)
[2019-11-12] MEDS: ALBUTEROL SULFATE NEB 2.5 MG/0.5 ML INH 5 MG INHALATION ×6 (01:35→20:30)
[2019-11-12 04:24] LABS: Hematocrit 27.4 % (37.0-47.0); Hemoglobin 8.7 g/dL (12.0-15.0); Mean Corpuscular HGB Conc 31.8 g/dl (32-36); Mean Corpuscular Hemoglobin 28.2 pg (26-34); Mean Corpuscular Volume 88.7 fl (80-100); Mean Platelet Volume 9.4 fl (7.4-10.4); Platelet Count Result 282 k/mm3 (150-375); Red Blood Count 3.09 M/mm3 (4.2-5.4); Red Cell Distribution Width 13.8 % (11.5-14.5); White Blood Count 6.5 K/mm3 (4.5-10.0)
[2019-11-12 04:36] LABS: Alanine Aminotransferase 13 U/L (4-35); Albumin Level 2.9 g/dL (3.5-5.1); Alkaline Phosphatase 61 U/L (38-126); Aspartate Amino Transferase 16 U/L (14-36); Bilirubin,Total 0.3 mg/dL (0.2-1.3); Blood Urea Nitrogen 8 mg/dL (7-17); Calcium 8.4 mg/dL (8.4-10.2); Carbon Dioxide 35 mmol/L (22-30); Chloride 92 mmol/L (98-107); Estimated CRCL calculation 81 ml/min; Estimated Glomerular Filt Rate > 60; Glucose 143 mg/dL (65-105); Magnesium 1.7 mg/dL (1.6-2.3); Potassium 3.3 mmol/L (3.4-5.0); Sodium 131 mmol/L (137-145)
[2019-11-12 04:53] LABS: Vancomycin Trough 15.1 ug/mL (10.0-20.0)
[2019-11-12] MEDS: ACETAMINOPHEN 325 MG TABLET PO (04:55)
[2019-11-12 07:59] LABS: Glucose Point of Care 131 (65-105)
[2019-11-12] MEDS: POTASSIUM CHLORIDE 20 MEQ TABLET 40 MEQ PO (09:48)
[2019-11-12] MEDS: FAMOTIDINE 20 MG/2 ML VIAL IV PUSH ×2 (09:54→21:15)
[2019-11-12] MEDS: ENOXAPARIN 40 MG/0.4 ML SYRINGE SUB-Q (09:54)
[2019-11-12] MEDS: EUCERIN CREAM 120 GM JAR 1 APPLIC TOPICAL (09:54)
[2019-11-12] MEDS: FUROSEMIDE 20 MG TABLET PO (09:54)
--- NOTE | 2019-11-12 11:41 | PM.IMPN ---
Progress Note: A&P Assessment and Plan (1) Acute metabolic encephalopathy: Code(s): G93.41 - Metabolic encephalopathy Status: Acute Assessment and Plan: -----Resolved. Could have been due to the morphine or gabapentin. I will add back her home pain medication but at a lower dose first to see how she does and then increase it back to her normal dose if she does well. Previous work up showed no acute pathology on her CT brain, blood cultures are negative to date, lactic acid, ammonia, TSH normal. Last ABG looked great. Monitor and move out of IMU. (2) Lower extremity cellulitis: Code(s): L03.119 - Cellulitis of unspecified part of limb Status: Acute Assessment and Plan: -----patient has significant erythema, warmth and tenderness to the lower extremities. This has improved since admission with less erythema and less warmth. Will continue ceftriaxone and vancomycin at this time. I did not suspect Pseudomonas although she is a new diabetic. She has no discharge or abscess to lower extremities at this time. No DVT seen on lower extremity ultrasound. Blood cultures have no growth to date. White blood cell count within normal limits. CRP slightly elevated. Plan to elevate the legs. (3) Generalized weakness: Code(s): R53.1 - Weakness Status: Acute Assessment and Plan: -----patient has had increasing generalized weakness from what is likely debility the last few months. She has untreated sleep apnea, chronic respiratory failure, and new onset diabetes. She was not working with physical therapy at home and her mobility decreased significantly. I do believe she will benefit from SNF to get her back to her baseline. I spoke with the today and they requested [facility]. COVID test has been ordered as she may be able to discharge in a few days. Continue PT and OT. (4) CHF (congestive heart failure): Onset Date: Unknown Qualifiers: Heart failure chronicity: unspecified Heart failure type: unspecified Qualified Code(s): I50.9 - Heart failure, unspecified Code(s): I50.9 - Heart failure, unspecified Status: Chronic Assessment and Plan: -----chronic diastolic heart failure. Continue home lasix. BNP okay. (5) Abdominal pain: Qualifiers: Abdominal location: generalized Qualified Code(s): R10.84 - Generalized abdominal pain Code(s): R10.9 - Unspecified abdominal pain Status: Acute Assessment and Plan: -----she had mild abdominal pain on admission which showed a possible ileus or enteritis. No abdominal pain today and is having BMs. Sx has signed off. She also has a history of UC but I do not suspect any flares at this time. (6) Hyponatremia: Onset Date: Unknown Code(s): E87.1 - Hypo-osmolality and hyponatremia Status: Acute Assessment and Plan: -----chronic hyponatremia at her baseline. Monitor (7) Chronic respiratory failure with hypoxia and hypercapnia: Code(s): J96.11 - Chronic respiratory failure with hypoxia; J96.12 - Chronic respiratory failure with hypercapnia Status: Acute Assessment and Plan: -----continue home oxygen settings and inhalers. CTA negative for clot. No additional hypoxia or shortness of breath noted (8) Constipation: Qualifiers: Constipation type: unspecified constipation type Qualified Code(s): K59.00 - Constipation, unspecified Code(s): K59.00 - Constipation, unspecified Status: Resolved Assessment and Plan: -----see above. (9) HTN (hypertension): Code(s): I10 - Essential (primary) hypertension Status: Acute Assessment and Plan: -----last blood pressure 122/49. Continue Lasix (10) Chronic anemia: Code(s): D64.9 - Anemia, unspecified Status: Acute Assessment and Plan: -----normal septic anemia noted the has be
[2019-11-12 12:32] LABS: Glucose Point of Care 121 (65-105)
--- NOTE | 2019-11-12 15:18 | PC.NURSE ---
This patient, Belinda lBack, was transferred to [[facility] ] on 11/12/19 at 1315. Personal belongings sent with patient. Belongings list checked and signed with receiving [ ]. Report given to [ Ariadne]. Appropriate documentation sent with patient.
--- NOTE | 2019-11-12 15:39 | PC.NURSE ---
This patient, Belinda Black, was received from [facility][ ] on 11/12/19 at 1540. Personal belongings list checked and signed. Patient/family oriented to unit policies and routines
[2019-11-12] MEDS: POTASSIUM CHLORIDE 10 MEQ TABLET.ER PO (17:30)
[2019-11-12 17:44] LABS: Glucose Point of Care 115 (65-105)
[2019-11-12] MEDS: oxyCODONE/ACETAMINOPHEN 5-325 MG TABLET 1 TABLET PO (18:36)
[2019-11-13] VITALS (27 sets, daily range): BP systolic 141–155; BP diastolic 48–67; PULSE 86–104; RESP 20–26; TEMP 36.4–36.5; O2SAT 90–100
[2019-11-13] MEDS: ALBUTEROL SULFATE NEB 2.5 MG/0.5 ML INH 5 MG INHALATION ×7 (00:03→23:45)
[2019-11-13] MEDS: IPRATROPIUM BR 0.02% INH SOLN 0.5 MG/2.5 ML VIAL INHALATION ×7 (00:03→23:45)
[2019-11-13] MEDS: oxyCODONE/ACETAMINOPHEN 5-325 MG TABLET 1 TABLET PO ×2 (00:19→19:58)
[2019-11-13 06:31] LABS: Hematocrit 28.9 % (37.0-47.0); Hemoglobin 8.8 g/dL (12.0-15.0)
[2019-11-13 06:45] LABS: Blood Urea Nitrogen 8 mg/dL (7-17); Calcium 8.5 mg/dL (8.4-10.2); Carbon Dioxide 32 mmol/L (22-30); Chloride 96 mmol/L (98-107); Estimated CRCL calculation 81 ml/min; Estimated Glomerular Filt Rate > 60; Glucose 104 mg/dL (65-105); Magnesium 1.7 mg/dL (1.6-2.3); Sodium 132 mmol/L (137-145)
[2019-11-13 09:34] LABS: Glucose Point of Care 110 (65-105)
[2019-11-13] MEDS: FAMOTIDINE 20 MG/2 ML VIAL IV PUSH ×2 (10:23→21:42)
[2019-11-13] MEDS: ENOXAPARIN 40 MG/0.4 ML SYRINGE SUB-Q (10:23)
[2019-11-13] MEDS: FUROSEMIDE 20 MG TABLET PO (10:24)
[2019-11-13] MEDS: EUCERIN CREAM 120 GM JAR 1 APPLIC TOPICAL (10:24)
[2019-11-13] MEDS: POTASSIUM CHLORIDE 10 MEQ TABLET.ER PO ×2 (10:24→19:57)
[2019-11-13 14:14] LABS: Glucose Point of Care 198 (65-105)
--- NOTE | 2019-11-13 15:36 | PM.IMPN ---
Progress Note: A&P Assessment and Plan (1) Lower extremity cellulitis: Qualifiers: Laterality: unspecified laterality Qualified Code(s): L03.119 - Cellulitis of unspecified part of limb Code(s): L03.119 - Cellulitis of unspecified part of limb Status: Acute Assessment and Plan: Significant erythema, warmth and tenderness to the lower extremities, improved since admission. Today she remains on Vanc and rocephin. She has no discharge or abscess to lower extremities at this time. No DVT seen on lower extremity ultrasound. Elevate legs. (2) Generalized weakness: Code(s): R53.1 - Weakness Status: Acute Assessment and Plan: Debility; untreated sleep apnea, chronic respiratory failure, new onset DM. Was not working with PT at home, mobility decreased. Continue PT/OT. COVID test for discharge planning is pending while we await a bed at [facility]. Hopeful for discharge ?tomorrow or Thurs based on bed availability. (3) Acute metabolic encephalopathy: Code(s): G93.41 - Metabolic encephalopathy Status: Resolved Assessment and Plan: Resolved; was felt to be related to morphine or gabapentin. Previous workup showed stable extensive cerebral white matter disease without acute findings; blood cultures no growth to date; ammonia, TSH, ABG within normal limits. Will monitor. (4) CHF (congestive heart failure): Onset Date: Unknown Qualifiers: Heart failure chronicity: unspecified Heart failure type: unspecified Qualified Code(s): I50.9 - Heart failure, unspecified Code(s): I50.9 - Heart failure, unspecified Status: Chronic Assessment and Plan: Chronic diastolic heart failure. Continue home lasix. (5) Abdominal pain: Qualifiers: Abdominal location: generalized Qualified Code(s): R10.84 - Generalized abdominal pain Code(s): R10.9 - Unspecified abdominal pain Status: Resolved Assessment and Plan: She had mild abdominal pain on admission, CT showed a possible ileus or enteritis. No abdominal pain today and is having BMs. Sx has signed off. No issues today. (6) Hyponatremia: Onset Date: Unknown Code(s): E87.1 - Hypo-osmolality and hyponatremia Status: Chronic Assessment and Plan: Chronic and at her baseline. Will monitor. (7) Chronic respiratory failure with hypoxia and hypercapnia: Code(s): J96.11 - Chronic respiratory failure with hypoxia; J96.12 - Chronic respiratory failure with hypercapnia Status: Chronic Assessment and Plan: Tolerating her home O2 requirement 3L/min. CTA shows no PE. No respiratory distress. (8) HTN (hypertension): Qualifiers: Hypertension type: essential hypertension Qualified Code(s): I10 - Essential (primary) hypertension Code(s): I10 - Essential (primary) hypertension Status: Chronic Assessment and Plan: BPs reviewed 11/12, elevated but stable. Continue home lasix and monitor BP. (9) Chronic anemia: Code(s): D64.9 - Anemia, unspecified Status: Chronic Assessment and Plan: Chronic normocytic anemia. No evidence of acute bleeding. Patient does not know when her last colonoscopy was but said it is within the last 10 years. Iron panel within normal limits. Will monitor. (10) New onset type 2 diabetes mellitus: Code(s): E11.9 - Type 2 diabetes mellitus without complications Status: Acute Assessment and Plan: A1c drawn 2 weeks ago outpatient and is 7.6. She was educated about diabetes, neuropathy, foot checks, etc. Patient and would like to talk to Dr. Cesar about treatment as he is the one who ordered it. Sh
[2019-11-13 18:24] LABS: Glucose Point of Care 126 (65-105)
[2019-11-13] MEDS: polyethylene glycoL 3350 17 GM POWD.PACK PO (18:51)
[2019-11-13 19:08] LABS: SARS-CoV-2 RNA PCR Negative
[2019-11-13] MEDS: MAGNESIUM OXIDE 200 MG TABLET PO (21:42)
[2019-11-14] VITALS (18 sets, daily range): BP systolic 140–149; BP diastolic 51–63; PULSE 83–103; RESP 20–25; TEMP 36.4–36.9; O2SAT 95–100
--- NOTE | 2019-11-14 01:59 | PCRCNOTE ---
CALLED TO PT ROOM FOR C/O SOB. SPO2 91% ON 3LPM NC. ALBUTEROL TX HAD BEEN GIVEN AT 2345. PLACED PT ON NIV WITH ORDERED SETTINGS OF 04/06 R10 35%. SPO2 99% RR 25 HR 101.
[2019-11-14] MEDS: ALBUTEROL SULFATE (*SP) AEROSOL 1 PUFF 2 PUFF INHALATION (02:02)
[2019-11-14] MEDS: oxyCODONE/ACETAMINOPHEN 5-325 MG TABLET 1 TABLET PO ×3 (02:13→15:50)
[2019-11-14 04:32] LABS: Glucose Point of Care 134 (65-105)
[2019-11-14 06:28] LABS: Hematocrit 28.6 % (37.0-47.0); Hemoglobin 8.9 g/dL (12.0-15.0); Mean Corpuscular HGB Conc 31.1 g/dl (32-36); Mean Corpuscular Hemoglobin 28.2 pg (26-34); Mean Corpuscular Volume 90.5 fl (80-100); Mean Platelet Volume 9.5 fl (7.4-10.4); Platelet Count Result 300 k/mm3 (150-375); Red Blood Count 3.16 M/mm3 (4.2-5.4); Red Cell Distribution Width 13.6 % (11.5-14.5); White Blood Count 6.5 K/mm3 (4.5-10.0)
[2019-11-14 06:45] LABS: Blood Urea Nitrogen 10 mg/dL (7-17); Calcium 8.5 mg/dL (8.4-10.2); Carbon Dioxide 35 mmol/L (22-30); Chloride 92 mmol/L (98-107); Estimated CRCL calculation 60 ml/min; Estimated Glomerular Filt Rate > 60; Glucose 154 mg/dL (65-105); Magnesium 1.7 mg/dL (1.6-2.3); Phosphorus 4.3 mg/dL (2.5-4.5); Potassium 3.9 mmol/L (3.4-5.0); Sodium 131 mmol/L (137-145)
[2019-11-14] MEDS: polyethylene glycoL 3350 17 GM POWD.PACK PO (08:14)
[2019-11-14] MEDS: ENOXAPARIN 40 MG/0.4 ML SYRINGE SUB-Q (08:31)
[2019-11-14] MEDS: FAMOTIDINE 20 MG/2 ML VIAL IV PUSH (08:32)
[2019-11-14] MEDS: FUROSEMIDE 20 MG TABLET PO (08:33)
[2019-11-14] MEDS: POTASSIUM CHLORIDE 10 MEQ TABLET.ER PO ×2 (08:33→16:17)
[2019-11-14] MEDS: MAGNESIUM OXIDE 200 MG TABLET PO (08:33)
[2019-11-14 08:37] LABS: Glucose Point of Care 158 (65-105)
[2019-11-14] MEDS: EUCERIN CREAM 120 GM JAR 1 APPLIC TOPICAL (08:37)
[2019-11-14] MEDS: ALBUTEROL SULFATE NEB 2.5 MG/0.5 ML INH 5 MG INHALATION ×4 (08:51→20:56)
[2019-11-14] MEDS: IPRATROPIUM BR 0.02% INH SOLN 0.5 MG/2.5 ML VIAL INHALATION ×4 (08:51→20:56)
--- NOTE | 2019-11-14 10:07 | PCOTNOTE ---
Attempted to see patient this am, however patient declined due to pain and Having a bad day.
[2019-11-14 11:59] LABS: Glucose Point of Care 135 (65-105)
--- NOTE | 2019-11-14 13:46 | PM.DS ---
DS: Admitting Diagnosis Admitting Diagnosis Admitting Diagnosis: Ileus, unspecified DS: Discharge Diagnosis Discharge Diagnosis (1) Lower extremity cellulitis: Qualifiers: Laterality: unspecified laterality Qualified Code(s): L03.119 - Cellulitis of unspecified part of limb Code(s): L03.119 - Cellulitis of unspecified part of limb Status: Acute Assessment and Plan: Treated with a course of IV vancomycin and rocephin, discharged with oral abx to complete course. No DVT seen on lower extremity ultrasound. Elevate legs. (2) Generalized weakness: Code(s): R53.1 - Weakness Status: Acute Assessment and Plan: Debility; untreated sleep apnea, chronic respiratory failure, new onset DM. Was not working with PT at home, mobility decreased. Discharged to SNF. (3) Acute metabolic encephalopathy: Code(s): G93.41 - Metabolic encephalopathy Status: Resolved Assessment and Plan: Brief period of increased confusion, resolved; was felt to be related to morphine or gabapentin. Previous workup showed stable extensive cerebral white matter disease without acute findings; blood cultures no growth to date; ammonia, TSH, ABG within normal limits. (4) CHF (congestive heart failure): Onset Date: Unknown Qualifiers: Heart failure chronicity: unspecified Heart failure type: unspecified Qualified Code(s): I50.9 - Heart failure, unspecified Code(s): I50.9 - Heart failure, unspecified Status: Chronic Assessment and Plan: Chronic diastolic heart failure. Continue home lasix. (5) Abdominal pain: Qualifiers: Abdominal location: generalized Qualified Code(s): R10.84 - Generalized abdominal pain Code(s): R10.9 - Unspecified abdominal pain Status: Resolved Assessment and Plan: She had mild abdominal pain on admission, CT showed a possible ileus or enteritis. No abdominal pain today and is having BMs. Sx has signed off. No issues today. (6) Hyponatremia: Onset Date: Unknown Code(s): E87.1 - Hypo-osmolality and hyponatremia Status: Chronic Assessment and Plan: Chronic and at her baseline. Will monitor. (7) Chronic respiratory failure with hypoxia and hypercapnia: Code(s): J96.11 - Chronic respiratory failure with hypoxia; J96.12 - Chronic respiratory failure with hypercapnia Status: Chronic Assessment and Plan: Tolerating her home O2 requirement 3L/min. CTA shows no PE. No respiratory distress. (8) HTN (hypertension): Qualifiers: Hypertension type: essential hypertension Qualified Code(s): I10 - Essential (primary) hypertension Code(s): I10 - Essential (primary) hypertension Status: Chronic Assessment and Plan: Maintained on home lasix; follow up with PCP. (9) Chronic anemia: Code(s): D64.9 - Anemia, unspecified Status: Chronic Assessment and Plan: Chronic normocytic anemia. No evidence of acute bleeding. Patient does not know when her last colonoscopy was but said it is within the last 10 years. Iron panel within normal limits. (10) New onset type 2 diabetes mellitus: Code(s): E11.9 - Type 2 diabetes mellitus without complications Status: Acute Assessment and Plan: A1c drawn 2 weeks ago outpatient and is 7.6. She was educated about diabetes, neuropathy, foot checks, etc. Patient and would like to talk to Dr. Cesar about treatment as he is the one who ordered it. She will work on diet control at this time. Here she was monitored with accu-cheks and treated with sliding scale insulin. DS: Summary
[2019-11-14] MEDS: LORazepam 0.5 MG TABLET PO (15:30)
[2019-11-15 01:59] LABS: Glucose Point of Care 110 (65-105)
== END 2019-11-14 21:40 | DRG 602 ==
LOC: ANHED 22:21 → ANH3MEDSUR 22:50 → ANHIMU 11-10 19:00 → ANH3MEDSUR 11-12 14:03 → ANHIMU 11-16 12:04
PROVIDERS: Emergency Medicine Emergency Medical Services; Internal Medicine; Physician Assistant; Admitting Provider Internal Medicine; Emergency Provider Emergency Medicine; PCP Internal Medicine; Visit Provider Physician Assistant
DX: L03.116 Cellulitis of left lower limb (principal); G93.41 Metabolic encephalopathy; I50.32 Chronic diastolic (congestive) heart failure; E87.1 Hypo-osmolality and hyponatremia; J96.11 Chronic respiratory failure with hypoxia; J96.12 Chronic respiratory failure with hypercapnia; J98.11 Atelectasis; K56.7 Ileus, unspecified; Z11.59 Encounter for screening for other viral diseases; L03.115 Cellulitis of right lower limb; I11.0 Hypertensive heart disease with heart failure; K52.9 Noninfective gastroenteritis and colitis, unspecified; D64.9 Anemia, unspecified; E11.42 Type 2 diabetes mellitus with diabetic polyneuropathy; J43.9 Emphysema, unspecified; I35.0 Nonrheumatic aortic (valve) stenosis; K21.9 Gastro-esophageal reflux disease without esophagitis; G47.33 Obstructive sleep apnea (adult) (pediatric); E04.1 Nontoxic single thyroid nodule; E55.9 Vitamin D deficiency, unspecified; R16.0 Hepatomegaly, not elsewhere classified; Z96.651 Presence of right artificial knee joint; E66.9 Obesity, unspecified; Z68.37 Body mass index [BMI] 37.0-37.9, adult; Z87.891 Personal history of nicotine dependence; Z99.81 Dependence on supplemental oxygen
CPT/HCPCS: 36415; 36600; 51701; 70450; 71045; 71275; 74019; 74176; 80048; 80053; 80076; 80202; 81001; 82140; 82375; 82607; 82728; 82746; 82805; 83050; 83540; 83550; 83605; 83735; 83880; 84100; 84443; 84466; 84484; 85014; 85018; 85025; 85027; 85380; 85610; 85730; 86140; 87040; 87635; 93005; 93970; 94002; 94003; 94640; 94660; 96361; 96365; 96366; 96367; 96372; 96375; 96376; 97110; 97116; 97161; 97165; 97530; 97535; 99285; A9270; C9803; G0378; J0131; J0696; J1650; J2270; J2405; J2543; J3370; J7120; Q9967; U0003

== ENCOUNTER 2019-11-15 05:47 | Emergency (ER) | payer MEDICARE, SELFPAY ==
--- NOTE | ~2019-11-15 | XR_ITS ---
EXAMINATION: XR chest 1V portable DATE: 11/15/2019 06:29 INDICATION: Shortness of breath TECHNIQUE: frontal view of the chest was obtained. COMPARISON: Chest radiograph dated 11/10/[address] dated 11/11/2019 FINDINGS: Hyperexpansion of lungs with flattening of the diaphragm consistent with emphysema better appreciated on prior CT. Pulmonary vascular congestion. Mild patchy airspace opacities in the left mid to lower lung zone. Calcified nodule at the right lung base consistent with old granulomatous disease. No pleu ral effusion or pneumothorax. The cardiomediastinal silhouette is normal. 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 Partially visualized vertical ignacio and pedicle screw fixation for p osterior spinal fusion beginning near the thoracolumbar junction and extending caudally beyond the in ferior margin of the [id number]. IMPRESSION: 1. Mild opacities in the left mid to lower lung zone which could represent atelectasis, pneumonia or mild pulmonary edema. 2. Emphysema. Reviewed, dictated and finalized at location A. IMPRESSION: 1. Mild opacities in the left mid to lower lung zone which could represent atel ectasis, pneumonia or mild pulmonary edema. 2. Emphysema.
[2019-11-15 05:49] VITALS: BP 112/54; PULSE 102; RESP 20; TEMP 37.1; O2SAT 100
[2019-11-15 05:54] VITALS: PULSE 101; O2SAT 100
[2019-11-15 06:14] LABS: Alveolar/Arterial O2 Gradient 97.7 mmHg; Base Excess ABG 7.6 mEq/l (+/-2.0); Carboxyhemoglobin 0.3 % THb (0-2.0); Fractional Inspired Oxygen 35 %; HCO3 ABG 33.1 mEq/l (22.0-26.0); Methemoglobin ABG 0.3 %THb (0-1.5); Oxygen Content ABG 14.1 %vol (16.0-22.0); Oxygen Saturation ABG 97.1 % (95.0-100.0); Oxyhemoglobin 95.8 % THb (90.0-100.0); PCO2 ABG 51.2 mmHg (35.0-45.0); PO2 ABG 92.3 mmHg (80.0-100.0); PO2 FiO2 Ratio Arterial Blood 2.64 %; Reduced Hemoglobin 3.6 %THb (0-5.0); Total Hemoglobin 10.4 g/dL (12.0-18.0); pH ABG 7.428 (7.350-7.450)
[2019-11-15 06:16] LABS: Device NASAL CANNULA; Liters per Minute 3.5 LPM; Modified Allen's Test Pass; Site Drawn RIGHT RADIAL
[2019-11-15 06:16] LABS: Basophils Absolute Auto 0.1 K/mm3 (0.0-0.1); Basophils Percent Auto 0.8 % (0.2-1.2); Eosinophils Absolute Auto 0.5 K/mm3 (0-0.3); Eosinophils Percent Auto 5.5 % (0-4.4); Hematocrit 30.8 % (37.0-47.0); Hemoglobin 9.6 g/dL (12.0-15.0); Immature Granulocyte Absolute 0.04 K/mm3 (0.00-0.031); Immature Granulocyte Percent A 0.5 % (0-0.5); Immature Platelet Fraction Pct 3.8 % (0.9-11.2); Lymphocytes Absolute Auto 0.85 K/mm3 (0.9-3.2); Lymphocytes Percent Auto 9.9 % (18.3-44.2); Mean Corpuscular HGB Conc 31.2 g/dl (32-36); Mean Corpuscular Hemoglobin 28.1 pg (26-34); Mean Corpuscular Volume 90.1 fl (80-100); Monocytes Absolute Auto 1.1 K/mm3 (0.1-0.6); Monocytes Percent Auto 12.4 % (2.6-8.5); Neutrophils Absolute Auto 6.1 K/mm3 (1.3-6.7); Neutrophils Percent Auto 70.9 % (45.5-73.1); Red Blood Count 3.42 M/mm3 (4.2-5.4); Red Cell Distribution Width 13.7 % (11.5-14.5); White Blood Count 8.6 K/mm3 (4.5-10.0)
--- NOTE | 2019-11-15 06:19 | ECG_ITS ---
Measurements Intervals [place] Rate: 101 P: 87 CA: 178 QRS: 27 QRSD: 88 T: 54 QT: 326 QTc: 424 Interpretive Statements SINUS TACHYCARDIA MINIMAL Q WAVES- INFERIOR LEADS BASELINE ARTIFACT- V1-V2, V6 BORDERLINE ECG Electronically Signed On 11-15-2019 8:06:51 CDT by Moiz Melton D.O.
[2019-11-15 06:20] LABS: Platelet Clumps Present; Platelet Estimate Adequate (Adequate)
--- NOTE | 2019-11-15 06:20 | ED.SOB ---
HPI - SOB/Dyspnea General Chief Complaint: Shortness of Breath/Dyspnea <Caleb Ling MD - Last Filed: 11/15/19 06:46> Stated Complaint: sob <Caleb Ling MD - Last Filed: 11/15/19 06:46> Time Seen by Provider: 11/15/19 05:49 <Caleb Ling MD - Last Filed: 11/15/19 06:46> History of Present Illness HPI Narrative: Patient is a 79-year-old female who presents ER with [facility] O[facility] sats [facility]. Patient was recently discharged from hospital after suffering an ileus and cellulitis to her lower extremities. Patient is chronically O2 dependent wears 3 L nasal cannula. While at the prison she was satting in the 80s while on 5 L and was placed on nonrebreather by EMS. Patient is keenly awake and alert. She denies any respiratory difficulties not having any new cough. No fevers or chills or sweats. Denies chest pain. <Caleb Ling MD - Last Filed: 11/15/19 06:46> Related Data Home Medications: Home Medications Medication Instructions Recorded Confirmed cholecalciferol (vitamin D3) 125 5,000 unit PO DAILY 03/16/19 11/10/19 mcg (5,000 unit) tablet PreserVision AREDS-2 1 tablet PO BID 07/12/19 11/10/19 <Caleb Ling MD - Last Filed: 11/15/19 06:46> Allergies/Adverse Reactions: Allergies Allergy/AdvReac Type Severity Reaction Status Date / Time Sulfa (Sulfonamide Allergy Unknown THROAT, Verified 11/15/19 06:17 Antibiotics) TONGUE SWELLING,Unknown aspirin Allergy Other Verified 11/15/19 06:17 <Caleb Ling MD - Last Filed: 11/15/19 06:46> Review of Systems Review of Systems: All systems reviewed & are unremarkable except as noted in HPI and below <Caleb Ling MD - Last Filed: 11/15/19 06:46> Constitutional: Constitutional: Denies chills, Denies fever(s) and Denies weakness <Caleb Ling MD - Last Filed: 11/15/19 06:46> Cardiovascular: Cardiovascular: Denies chest pain and Denies rapid heart rate <Caleb Ling MD - Last Filed: 11/15/19 06:46> Respiratory: Respiratory: Denies cough, Denies dyspnea and Denies wheezing <Caleb Ling MD - Last Filed: 11/15/19 06:46> Gastrointestinal: Gastrointestinal: Denies abdominal pain, Denies nausea and Denies vomiting <Caleb Ling MD - Last Filed: 11/15/19 06:46> Musculoskeletal: Comments: Leg pain from lower extremity edema. <Caleb Ling MD - Last Filed: 11/15/19 06:46> PMFSH Social History Social History: Social History (Updated 11/10/19 @ 13:07 by Erum Nolan PA-C) Social History: The patient lives at home with her of 60 years. 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 She has a 50 pack year smoking history and quit in 2007. No alcohol or illicit substance use. She mostly uses a wheelchair now. Primary care physician: Dr. Wing Cesar Code status: Full code Smoking packs per day: 1 Smoking cigarettes per day: 20.0 Years smoked: 20 Smoking pack-years: 20.00 Smoking status: Former smoker Additional smoking assessment comments: Alcohol intake: former Drinks per week: 1 Substance use: never Additional living arrangements comments: Additional occupation/education comments: Gender identity (if verbalized by the patient): Female Spiritual care concerns: No Agree to blood products: Yes <Caleb Ling MD - Last Filed: 11/15/19 06:46> Exam Narrative: Exam Narrative: GENERAL: Chronically-appearing, well-nourished, and in no acute distress. HEAD: Normocephalic, atraumatic. ENT: Mucous membranes moist. CHEST: Clear to auscultation. No respiratory distress. HEART: Tachycardic and regular. Normal peripheral pulses. ABDOMEN: Soft, nontender, nondistended. EXTREMITIES: Normal range of motion. 2+ edema. SKIN: Warm, dry, erythematous legs bilaterally with tenderness that is chronic. NEURO: Alert and oriented x3. PSYCH: Normal mood and affect. <Caleb Ling MD - Last Filed
[2019-11-15 07:02] LABS: Blood Urea Nitrogen 14 mg/dL (7-17); Calcium 9.1 mg/dL (8.4-10.2); Carbon Dioxide 36 mmol/L (22-30); Chloride 92 mmol/L (98-107); Estimated Glomerular Filt Rate > 60; Glucose 127 mg/dL (65-105); Potassium 3.8 mmol/L (3.4-5.0); Sodium 134 mmol/L (137-145)
--- NOTE | 2019-11-15 07:15 | PC.NURSE ---
pts at bedside questioning why pt was sent here. pt informed that per [facility] pts o2 sats were low but that was not seen in ed. spouse made aware that condtion is unchanged from yesterdays visit and plan is to discharge pt back to facility. pt then states she is not going back. spouse asking to speak to edp. edp informed.
[2019-11-15 07:19] LABS: NT Pro B Type Natriuretic Pept 436 PG/ML (5-100)
[2019-11-15] MEDS: oxyCODONE/ACETAMINOPHEN 5-325 MG TABLET 1 TABLET PO (08:25)
[2019-11-15 09:30] VITALS: PULSE 93; RESP 16; O2SAT 99
== END 2019-11-15 09:30 ==
PROVIDERS: Emergency Provider Emergency Medicine; PCP Internal Medicine
DX: J44.9 Chronic obstructive pulmonary disease, unspecified (principal); Z99.81 Dependence on supplemental oxygen; Z87.891 Personal history of nicotine dependence; R00.0 Tachycardia, unspecified; R94.31 Abnormal electrocardiogram [ECG] [EKG]
CPT/HCPCS: 36415; 36600; 71045; 80048; 82375; 82805; 83050; 83880; 85025; 85055; 93005; 99283; A9270

== ENCOUNTER 2019-11-17 20:31 | Emergency (ER) | payer MEDICARE, SELFPAY ==
[2019-11-17 20:34] VITALS: BP 149/77; PULSE 86; RESP 20; TEMP 36.8; O2SAT 100
--- NOTE | 2019-11-17 20:38 | ED.SOB ---
HPI - SOB/Dyspnea General Chief Complaint: Shortness of Breath/Dyspnea Stated Complaint: sob History of Present Illness HPI Narrative: Brought in from rehab center for SOB. She has COPD and is on 3 liters O2 at baseline. EMS was reportedly called out for SOB. They report that she was hypoxic on baseline O2 so she was placed on CPAP. On arrival to the ED she was taken off of CPAP and placed back on her baseline O2 and maintained saturation in the high 90s. She denies any complaints and would not like any further treatment or testing. She does not want to return to rehab. She wants to return home with her . Her is in agreement with this plan. Related Data Home Medications Medication Instructions Recorded Confirmed cholecalciferol (vitamin D3) 125 5,000 unit PO DAILY 03/16/19 11/10/19 mcg (5,000 unit) tablet PreserVision AREDS-2 1 tablet PO BID 07/12/19 11/10/19 Allergies Allergy/AdvReac Type Severity Reaction Status Date / Time Sulfa (Sulfonamide Allergy Unknown THROAT, Verified 11/15/19 06:17 Antibiotics) TONGUE SWELLING,Unknown aspirin Allergy Other Verified 11/15/19 06:17 Review of Systems Review of Systems: All systems reviewed & are unremarkable except as noted in HPI and below Constitutional: Constitutional: Denies fever(s) ENT: Denies sore throat Cardiovascular: Cardiovascular: Denies chest pain Respiratory: Respiratory: Reports dyspnea Gastrointestinal: Gastrointestinal: Denies abdominal pain PMFSH Past Medical History Medical History Abdominal bruit Renal US negative for stenosis 08/2019. Aortic stenosis Mild on echocardiogram from October 2018. Borderline diabetic Cataracts, bilateral Maturing cataracts bilaterally. Chronic diastolic (congestive) heart failure (Unknown) Echocardiogram October 2018 demonstrated normal left ventricular systolic function with EF of 65-70% grade 1 diastolic dysfunction mild aortic stenosis with a normal RVSP of 34. Chronic hyponatremia Chronic pain syndrome With chronic back, bilateral shoulder, and left knee pain. 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 Essential (primary) hypertension (Unknown) Fractured coccyx GERD (gastroesophageal reflux disease) History of angina History of tobacco abuse Hyponatremia (Unknown) Insomnia Liver mass 21 mm likely benign noted on imaging for 2017. Obstructive sleep apnea Noncompliant with CPAP therapy at home. Thyroid nodule On CT scan from July 2017. Ulcerative colitis Venous stasis dermatitis of both lower extremities Vitamin D deficiency Surgical History Surgical History History of arthroscopy of left knee (~2000) History of lumbar surgery (~2001) History of tonsillectomy History of total right knee replacement (~01/2012) History of ventral hernia repair With abdominoplasty. Family History Family History Mother Diabetes mellitus Father COPD (chronic obstructive pulmonary disease) Sibling Lung disease Brother Social History Social History Social History: The patient lives at home with her of 60 years. 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 She has a 50 pack year smoking history and quit in 2007. No alcohol or illicit substance use. She mostly uses a wheelchair now. Primary care physician: Dr. Wing Cesar Code status: Full code Smoking packs per day: 1 Smoking cigarettes per day: 20.0 Years smoked: 20 Smoking pack-years: 20.00 Smoking status: Former smoker Additional smoking assessment comments: Alcohol intake: former Drinks per week: 1 Substance use: never Additional living arran
--- NOTE | 2019-11-17 20:51 | ECG_ITS ---
Measurements Intervals [place] Rate: 87 P: 71 [place]: 179 QRS: 22 QRSD: 94 T: 34 QT: 341 QTc: 410 Interpretive Statements SINUS RHYTHM WITH SINUS ARRHYTHMIA MINIMAL Q WAVES- INFERIOR LEADS BORDERLINE T WAVE ABNORMALITY- INFERIOR LEADS BORDERLINE AV CONDUCTION DELAY BORDERLINE ECG Electronically Signed On 11-18-2019 7:48:15 CDT by Moiz Melton D.O.
[2019-11-17 20:59] LABS: Basophils Absolute Auto 0.1 K/mm3 (0.0-0.1); Basophils Percent Auto 0.9 % (0.2-1.2); Eosinophils Absolute Auto 0.5 K/mm3 (0-0.3); Hematocrit 31.3 % (37.0-47.0); Hemoglobin 9.6 g/dL (12.0-15.0); Immature Granulocyte Absolute 0.04 K/mm3 (0.00-0.031); Immature Granulocyte Percent A 0.5 % (0-0.5); Lymphocytes Absolute Auto 1.09 K/mm3 (0.9-3.2); Lymphocytes Percent Auto 14.2 % (18.3-44.2); Mean Corpuscular HGB Conc 30.7 g/dl (32-36); Mean Corpuscular Hemoglobin 28.2 pg (26-34); Mean Corpuscular Volume 91.8 fl (80-100); Mean Platelet Volume 9.7 fl (7.4-10.4); Monocytes Absolute Auto 0.9 K/mm3 (0.1-0.6); Monocytes Percent Auto 12.2 % (2.6-8.5); Neutrophils Absolute Auto 5.1 K/mm3 (1.3-6.7); Neutrophils Percent Auto 66.2 % (45.5-73.1); Platelet Count Result 334 k/mm3 (150-375); Red Blood Count 3.41 M/mm3 (4.2-5.4); Red Cell Distribution Width 13.9 % (11.5-14.5); White Blood Count 7.7 K/mm3 (4.5-10.0)
[2019-11-17 21:00] VITALS: BP 149/77; PULSE 100; RESP 20; O2SAT 100
[2019-11-17 21:11] LABS: Blood Urea Nitrogen 11 mg/dL (7-17); Calcium 8.6 mg/dL (8.4-10.2); Carbon Dioxide 38 mmol/L (22-30); Chloride 92 mmol/L (98-107); Estimated CRCL calculation 67 ml/min; Estimated Glomerular Filt Rate > 60; Glucose 150 mg/dL (65-105); Potassium 3.7 mmol/L (3.4-5.0); Sodium 134 mmol/L (137-145)
[2019-11-17 22:00] VITALS: BP 147/60; PULSE 89; RESP 21; O2SAT 96
--- NOTE | 2019-11-17 22:32 | PC.NURSE ---
Spoke with patient and extensively about plan of care and they are both adamant that the patient be transported home by EMS. PT states she does not want to go back to the assisted living. Discussed patient's needs for at home and if he would be able to full fill them such as oxygen, meds, basic care like toileting and bathing. He states he has been taking care of her for years and has everything she needs. Both and patient are alert and oriented x 4 and verbalize that they understand the amount of care that she will require at home. Discussed with AUGUST Carter who agrees they are both alert and oriented and appropriate to make their own decisions. EMS called for transport. PT refusing further monitoring while awaiting EMS and self removed monitoring equipment.
[2019-11-17] MEDS: oxyCODONE/ACETAMINOPHEN 5-325 MG TABLET 1 TABLET PO (23:07)
[2019-11-18 00:10] VITALS: PULSE 92; RESP 20
[2019-11-18] MEDS: ALBUTEROL SULFATE NEB 2.5 MG/3 ML INH 1.25 MG INHALATION (00:20)
[2019-11-18 00:28] VITALS: PULSE 89; RESP 18
[2019-11-18 01:00] VITALS: BP 165/59; PULSE 92; RESP 20; O2SAT 94
== END 2019-11-18 01:00 ==
LOC: ANHED 21:37
PROVIDERS: Emergency Provider Emergency Medicine; PCP Internal Medicine
DX: J44.1 Chronic obstructive pulmonary disease with (acute) exacerbation (principal); I35.0 Nonrheumatic aortic (valve) stenosis; R73.03 Prediabetes; H26.9 Unspecified cataract; I50.32 Chronic diastolic (congestive) heart failure; E87.1 Hypo-osmolality and hyponatremia; G89.4 Chronic pain syndrome; J96.11 Chronic respiratory failure with hypoxia; J96.12 Chronic respiratory failure with hypercapnia; Z99.81 Dependence on supplemental oxygen; I11.0 Hypertensive heart disease with heart failure; G47.33 Obstructive sleep apnea (adult) (pediatric); E55.9 Vitamin D deficiency, unspecified; Z87.891 Personal history of nicotine dependence; Z96.651 Presence of right artificial knee joint; R94.31 Abnormal electrocardiogram [ECG] [EKG]
CPT/HCPCS: 36415; 80048; 85025; 93005; 94640; 99284; A9270

== ENCOUNTER 2020-02-27 13:19 | Outpatient (RCR) | payer MEDICARE, OTHER, SELFPAY ==
[2020-02-27 14:51] VITALS: BMI 33.9
== END 2020-04-09 13:29 | disposition home or self-care (01) ==
LOC: ANHWOC 13:19
PROVIDERS: PCP Internal Medicine; Visit Provider Internal Medicine
DX: L97.929 Non-pressure chronic ulcer of unspecified part of left lower leg with unspecified severity (principal)
CPT/HCPCS: 99212; G0463

== ENCOUNTER 2020-04-17 15:19 | Outpatient (NON) | payer MEDICARE, SELFPAY ==
[2020-04-17 16:10] LABS: Hemoglobin A1C 5.2 % (<5.7)
[2020-04-17 16:16] LABS: Alanine Aminotransferase 8 U/L (4-35); Albumin Level 3.7 g/dL (3.5-5.1); Alkaline Phosphatase 75 U/L (38-126); Aspartate Amino Transferase 21 U/L (14-36); Bilirubin,Total 0.3 mg/dL (0.2-1.3); Blood Urea Nitrogen 21 mg/dL (7-17); Calcium 9.4 mg/dL (8.4-10.2); Carbon Dioxide > 40 mmol/L (22-30); Chloride 89 mmol/L (98-107); Estimated Glomerular Filt Rate > 60; Glucose 127 mg/dL (65-105); Sodium 134 mmol/L (137-145)
== END 2020-04-17 15:20 ==
PROVIDERS: PCP Internal Medicine; Visit Provider Internal Medicine
DX: E55.9 Vitamin D deficiency, unspecified (principal); E11.9 Type 2 diabetes mellitus without complications; I10 Essential (primary) hypertension; L97.929 Non-pressure chronic ulcer of unspecified part of left lower leg with unspecified severity; L03.116 Cellulitis of left lower limb; J96.11 Chronic respiratory failure with hypoxia; L03.115 Cellulitis of right lower limb
CPT/HCPCS: 80053; 82306; 83036

== ENCOUNTER 2020-05-05 14:30 | Inpatient (IN) | payer MEDICARE, SELFPAY ==
[2020-05-05] VITALS (7 sets, daily range): BP systolic 130–183; BP diastolic 63–100; PULSE 74–100; RESP 17–22; TEMP 36.3–37; O2SAT 96–100; BMI 35.2
--- NOTE | ~2020-05-05 | XR_ITS ---
EXAMINATION: XR chest 1V portable EXAM DATE: 05/05/2020 15:24 INDICATION: dyspnea,Bilat Leg Swelling,Redness,Pain,Hx COPD,HTN . TECHNIQUE: Portable AP frontal chest x-ray was obtained. Comparison is made to prior examination from 02/15/2020. FINDINGS: Right basilar granuloma. The lungs are otherwise clear. There are no pleural effusions. C ardiomediastinal silhouette is normal. There is no pneumothorax suspected. There are bony degenerat dana changes. Lower lumbar fusion hardware. IMPRESSION: No acute cardiopulmonary findings. Reviewed, dictated and finalized at location [facility]
--- NOTE | 2020-05-05 14:44 | ECG_ITS ---
Measurements Intervals [place] Rate: 89 P: 82 [place]: 175 QRS: -69 QRSD: 74 T: 75 QT: 329 QTc: 401 Interpretive Statements SINUS RHYTHM LEFT ANTERIOR FASCICULAR BLOCK BASELINE ARTIFACT- I, II, III, AVR, AVL ABNORMAL ECG Electronically Signed On 05-05-2020 15:19:21 DESIGN ENG by Moiz Melton D.O.
[2020-05-05 15:14] LABS: Basophils Absolute Auto 0.1 K/mm3 (0.0-0.1); Basophils Percent Auto 1.1 % (0.2-1.2); Eosinophils Absolute Auto 0.9 K/mm3 (0-0.3); Eosinophils Percent Auto 12.9 % (0-4.4); Hematocrit 35.2 % (37.0-47.0); Hemoglobin 11.2 g/dL (12.0-15.0); Immature Granulocyte Absolute 0.02 K/mm3 (0.00-0.031); Immature Granulocyte Percent A 0.3 % (0-0.5); Lymphocytes Percent Auto 14.1 % (18.3-44.2); Mean Corpuscular HGB Conc 31.8 g/dl (32-36); Mean Corpuscular Hemoglobin 27.1 pg (26-34); Mean Platelet Volume 9.6 fl (7.4-10.4); Monocytes Absolute Auto 0.9 K/mm3 (0.1-0.6); Neutrophils Absolute Auto 4.2 K/mm3 (1.3-6.7); Neutrophils Percent Auto 59.6 % (45.5-73.1); Platelet Count Result 318 k/mm3 (150-375); Red Blood Count 4.14 M/mm3 (4.2-5.4); Red Cell Distribution Width 13.7 % (11.5-14.5); White Blood Count 7.1 K/mm3 (4.5-10.0)
--- NOTE | 2020-05-05 15:17 | ED.GENADULT ---
HPI - General Adult General Chief complaint: Extremity Injury, Lower Stated complaint: swelling to lower extremities Time Seen by Provider: 05/05/20 14:42 Source: RN notes reviewed History of Present Illness HPI narrative: Patient presents emergency department from home via EMS for bilateral leg pain. Patient states that she has a history of chronic wounds on her lower extremities she states over the past 3 days has had increasing pain and swelling in the bilateral lower legs she states she is had increased size of her wounds as well as drainage from the wounds and increased erythema patient denies any fevers or chills chest pain shortness of breath or any other symptoms states that she has been seen by the wound care clinic before the Related Data Home Medications Medication Instructions Recorded Confirmed cholecalciferol (vitamin D3) 125 5,000 unit PO DAILY 03/16/19 04/18/20 mcg (5,000 unit) tablet PreserVision AREDS-2 1 tablet PO BID 07/12/19 04/18/20 Allergies Allergy/AdvReac Type Severity Reaction Status Date / Time aluminum aspirin Allergy Mild pt does Verified 05/05/20 14:46 not know aspirin Allergy Mild rash Verified 05/05/20 14:46 Sulfa (Sulfonamide Allergy Mild THROAT, Verified 05/05/20 14:46 Antibiotics) TONGUE SWELLING,Unknown Review of Systems Review of Systems: Narrative: Gen.: Denies fevers or chills ENT: Denies congestion Respiratory: Denies shortness of breath or cough CV: Denies chest pain or palpitations GI: Denies abdominal pain nausea, emesis or diarrhea Musculoskeletal: Denies back pain or muscle pain reports lower extremity swelling Neuro: Denies numbness, tingling, weakness or focal weakness Skin: Denies rash Except as documented, all other systems reviewed and negative [facility] Past Medical History Medical History (Updated 05/05/20 @ 16:01 by Elias Sarkar DO) Abdominal bruit Renal US negative for stenosis 08/2019. Aortic stenosis Mild on echocardiogram from October 2018. Borderline diabetic Cataracts, bilateral Maturing cataracts bilaterally. Chronic diastolic (congestive) heart failure (Unknown) Echocardiogram October 2018 demonstrated normal left ventricular systolic function with EF of 65-70% grade 1 diastolic dysfunction mild aortic stenosis with a normal RVSP of 34. Chronic hyponatremia Chronic pain syndrome With chronic back, bilateral shoulder, and left knee pain. 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 Essential (primary) hypertension (Unknown) Fractured coccyx GERD (gastroesophageal reflux disease) History of angina History of tobacco abuse Hyponatremia (Unknown) Insomnia Liver mass 21 mm likely benign noted on imaging for 2018. Obstructive sleep apnea Noncompliant with CPAP therapy at home. Thyroid nodule On CT scan from July 2017. Ulcerative colitis Venous stasis dermatitis of both lower extremities Vitamin D deficiency Surgical History Surgical History History of arthroscopy of left knee (~2000) History of lumbar surgery (~2001) History of tonsillectomy History of total right knee replacement (~01/2012) History of ventral hernia repair With abdominoplasty. Family History Family History Mother Diabetes mellitus Father COPD (chronic obstructive pulmonary disease) Sibling Lung disease Brother Social History Social History Social History: The patient lives at home with her of 60 years. 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 She has a 50 pack year smoking history and quit in 2007. No alcohol or illicit substance use. She mostly uses a wheelchair now. Primary care physician: Dr. Wing Cesar Code status: Full code
[2020-05-05 15:20] LABS: Prothrombin Time 13.4 Seconds (11.1-14.7)
[2020-05-05 15:21] LABS: Partial Thromboplastin Time 31.8 SECONDS (22.3-36.8)
[2020-05-05 15:23] LABS: Lactic Acid Reflex 1.2 mmol/L (0.7-2.1)
[2020-05-05 15:33] LABS: NT Pro B Type Natriuretic Pept 429 PG/ML (5-100)
[2020-05-05 15:42] LABS: Blood Urea Nitrogen 17 mg/dL (7-17); Calcium 9.8 mg/dL (8.4-10.2); Carbon Dioxide > 40 mmol/L (22-30); Chloride 88 mmol/L (98-107); Estimated CRCL calculation 56 ml/min; Estimated Glomerular Filt Rate > 60; Glucose 125 mg/dL (65-105); Potassium 4.2 mmol/L (3.4-5.0); Sodium 136 mmol/L (137-145)
[2020-05-05] MEDS: HYDROcodone/acetaminophen (*CRX) 5-325 MG TABLET 1 TAB PO (16:10)
--- NOTE | 2020-05-05 18:30 | PC.NURSE ---
This patient, Belinda Black, was admitted to Medical Room 258-01. Patient/family oriented to hospital policies and general routines including ID bracelet, bed and alarms, visiting hours, pain management, procedures, bathroom and other care routines, personal items, smoking policy, room service/diet, and visiting hours. Information on how to activate the Rapid Response Team has been discussed. Patient/Family are encouraged to report perceived risks to care and to ask questions if they do not understand what they are told or what they should do.
--- NOTE | 2020-05-05 20:30 | PM.IMHP ---
H&P: HPI History of Present Illness Date/Time: 05/05/20 20:30 Chief Complaint: Cellulitis to lower extremity Narrative: Belinda Black is a 79 year old female had several episodes of bilateral cellulitis of the lower leg and is even seen wound care here in the past. She also has home health and she says that there only there twice a week and she feels that is not enough. They do the dressing changes and then she and her do the dressing changes the other days a week and she has difficulty with it. These are chronic venous stasis ulcers although she said they have been more painful lately and they have been more red and they have been leaking. She also has COPD and is on chronic oxygen at 3 L per nasal cannula. For cellulitis of the lower extremity was on 11/10/2019 and she was discharged on 11/14/2019 vancomycin Rocephin at that time. And was discharged on oral antibiotics. She was checked for DVT at that time and it was negative. Patient was discharged to SNF at that time. Today the patient was brought into the emergency room by Ambulance for bilateral leg pain. She has chronic wounds to her lower extremities but over the last 3 days the pain has been getting worse than the swelling in the redness and she has had some chills as well. No fever. Vital signs [id number]/90 and pulse ox 100% on the 3 L. H&H was noted to be 11.2 and 35.2. Her white count was normal. Chest x-ray offered up nothing acute. Patient was started on Ancef and given Bentley in the emergency room.Anywhere from 125-150. She is not on anything for her diabetes. Patient is being admitted into observation status on 05/05/2020 Review of Systems Review of Systems: All systems reviewed & are unremarkable except as noted in HPI and below Constitutional: Constitutional: Reports as per HPI and Reports no additional constitutional complaints Eyes: Eyes: Reports as per HPI and Reports no additional eye complaints ENT: Reports system reviewed and no additional complaints, except as documented and Reports Normal hearing present Cardiovascular: Cardiovascular: Reports no additional cardiovascular complaints Respiratory: Respiratory: Reports no additional respiratory complaints and Reports no additional respiratory complaints Gastrointestinal: Gastrointestinal: Reports as per HPI and Reports no additional gastrointestinal complaints Musculoskeletal: Musculoskeletal: Reports no additional musculoskeletal complaints Integumentary/Breasts: Skin/Breast: Reports system reviewed and no additional complaints, except as docu and Reports as per HPI Neurologic: Reports system reviewed and no additional complaints, except as documented, Reports as per HPI and Reports Normal hearing present Psychiatric: Psychiatric: Reports no additional psychiatric complaints and Reports as per HPI Endocrine: Endocrine: Reports no additional endocrine complaints Hematologic/Lymphatic: Hematologic/Lymphatic: Reports no additional hematologic/lymphatic complaints Allergic/Immunologic: Allergic/Immunologic: Reports no additional allergic/immunologic complaints [facility] Past Medical History Medical History (Updated 05/05/20 @ 20:36 by Gisella Lima NP) Abdominal bruit Renal US negative for stenosis 08/2019. Aortic stenosis Mild on echocardiogram from October 2018. Borderline diabetic The patient stated she is not taking anything for her diabetes and she is not diabetic. Cataracts, bilateral Maturing cataracts bilaterally. Chronic diastolic (congestive) heart failure (Unknown) Echocardiogram October 2018 demonstrated normal left ventricular systolic function with EF of 65-70% grade 1 diastolic dysfunction mild aortic stenosis with a normal RVSP of 34. Chronic hyponatremia Chronic pain syndrome With chronic back, bilateral shoulder, and left knee pain. Chronic respiratory failure with hypoxia and hypercapnia Chronic shortness of breath (Unknown) COPD with emphysema Dependence on supplemen
[2020-05-05] MEDS: FAMOTIDINE 10 MG TABLET PO (21:17)
[2020-05-05] MEDS: oxyCODONE/ACETAMINOPHEN (*CRX) 5-325 MG TABLET 1 TABLET PO (22:27)
[2020-05-05] MEDS: oxyCODONE HCL (*CRX) 5 MG TAB IR PO (22:28)
[2020-05-06] VITALS (8 sets, daily range): BP systolic 148–159; BP diastolic 70–85; PULSE 81–97; RESP 18–22; TEMP 36.2–36.5; O2SAT 96–100
[2020-05-06] MEDS: ALBUTEROL SULFATE NEB 2.5 MG/0.5 ML INH INHALATION (01:52)
[2020-05-06 05:56] LABS: Basophils Percent Auto 0.6 % (0.2-1.2); Eosinophils Absolute Auto 0.9 K/mm3 (0-0.3); Eosinophils Percent Auto 12.4 % (0-4.4); Hematocrit 31.7 % (37.0-47.0); Immature Granulocyte Absolute 0.01 K/mm3 (0.00-0.031); Immature Granulocyte Percent A 0.1 % (0-0.5); Lymphocytes Absolute Auto 1.17 K/mm3 (0.9-3.2); Lymphocytes Percent Auto 17.1 % (18.3-44.2); Mean Corpuscular HGB Conc 31.5 g/dl (32-36); Mean Corpuscular Hemoglobin 26.5 pg (26-34); Mean Corpuscular Volume 83.9 fl (80-100); Mean Platelet Volume 9.6 fl (7.4-10.4); Monocytes Absolute Auto 0.9 K/mm3 (0.1-0.6); Neutrophils Absolute Auto 3.9 K/mm3 (1.3-6.7); Neutrophils Percent Auto 56.8 % (45.5-73.1); Platelet Count Result 290 k/mm3 (150-375); Red Blood Count 3.78 M/mm3 (4.2-5.4); Red Cell Distribution Width 13.5 % (11.5-14.5); White Blood Count 6.9 K/mm3 (4.5-10.0)
[2020-05-06] MEDS: oxyCODONE HCL (*CRX) 5 MG TAB IR PO ×3 (05:56→14:53)
[2020-05-06] MEDS: oxyCODONE/ACETAMINOPHEN (*CRX) 5-325 MG TABLET 1 TABLET PO ×3 (05:56→14:53)
[2020-05-06 06:54] LABS: Blood Urea Nitrogen 17 mg/dL (7-17); Carbon Dioxide > 40 mmol/L (22-30); Chloride 90 mmol/L (98-107); Estimated CRCL calculation 47 ml/min; Estimated Glomerular Filt Rate > 60; Glucose 111 mg/dL (65-105); Potassium 4.1 mmol/L (3.4-5.0); Sodium 133 mmol/L (137-145)
[2020-05-06] MEDS: CHOLECALCIFEROL 1,000 UNITS TABLET 5000 UNITS PO (08:59)
[2020-05-06] MEDS: FAMOTIDINE 10 MG TABLET PO ×2 (09:00→17:52)
[2020-05-06] MEDS: FUROSEMIDE 20 MG TABLET PO (09:00)
[2020-05-06] MEDS: DOCUSATE SODIUM 100 MG CAPSULE PO ×2 (09:00→17:52)
[2020-05-06] MEDS: ENOXAPARIN 40 MG/0.4 ML SYRINGE SUB-Q (09:00)
[2020-05-06] MEDS: POTASSIUM CHLORIDE 10 MEQ TABLET.ER PO ×2 (09:01→17:52)
[2020-05-06] MEDS: OPTI-GEN TAB 1 TABLET PO ×2 (09:01→17:52)
[2020-05-06] MEDS: SILVERGEL (ELTA) 45 ML 1 APPLIC TOPICAL (09:06)
[2020-05-06] MEDS: LORATADINE/PSEUDOEPHEDRINE (*CRX) 10/240 MG TABLET ER 24 HR 1 TAB PO (09:32)
[2020-05-06] MEDS: CELECOXIB 100 MG CAPSULE PO (11:01)
[2020-05-06] MEDS: EUCERIN CREAM 120 GM JAR 1 APPLIC TOPICAL (11:02)
--- NOTE | 2020-05-06 19:01 | PM.IMPN ---
Progress Note: A&P Assessment and Plan (1) Bilateral cellulitis of lower leg: Code(s): L03.116 - Cellulitis of left lower limb; L03.115 - Cellulitis of right lower limb Status: Acute Assessment and Plan: Continue Cefazolin. Continue to monitor. (2) Venous stasis ulcer: Code(s): I83.009 - Varicose veins of unspecified lower extremity with ulcer of unspecified site; L97.909 - Non-pressure chronic ulcer of unspecified part of unspecified lower leg with unspecified severity Status: Acute Assessment and Plan: Wound care evaluated patient (3) Cellulitis of both lower extremities: Code(s): L03.115 - Cellulitis of right lower limb; L03.116 - Cellulitis of left lower limb Status: Acute Assessment and Plan: Improved. (4) Leukocytosis: Qualifiers: Leukocytosis type: unspecified Qualified Code(s): D72.829 - Elevated white blood cell count, unspecified Code(s): D72.829 - Elevated white blood cell count, unspecified Status: Acute Assessment and Plan: Likely secondary to cellulitis Will continue to monitor. (5) Chronic respiratory failure with hypoxia and hypercapnia: Code(s): J96.11 - Chronic respiratory failure with hypoxia; J96.12 - Chronic respiratory failure with hypercapnia Status: Chronic Assessment and Plan: Currently on room air. (6) HTN (hypertension): Qualifiers: Hypertension type: essential hypertension Qualified Code(s): I10 - Essential (primary) hypertension Code(s): I10 - Essential (primary) hypertension Status: Chronic Assessment and Plan: Well controlled Continue to monitor. Subjective Date/time seen: 05/06/20 19:01 Patient states that she feels fine. Review of Systems Review of Systems: Narrative: Leg swelling pain and discomfort. Constitutional: Comments: no chills. Cardiovascular: Comments: no chest pain. Respiratory: Comments: no sob, no cough, no sputum production Gastrointestinal: Comments: no n/v/abdominal pain. Musculoskeletal: Comments: B/L LE swelling, pain and discomfort. Integumentary/Breasts: Comments: B/L LE redness. Neurologic: Comments: no sensory motor deficit. Exam Narrative: Exam Narrative: Sitting in NAD. Const: General: comfortable, alert, awake and Physically active Nutritional Appearance: average body habitus and well nourished Orientation/consciousness: patient oriented x3 HENMT: Head: normocephalic Ears: hearing grossly normal bilaterally Face and sinus: normal facial exam Neck: Neck: no lymphadenopathy, supple and no JVD Resp: Effort & Inspection: able to speak in complete sentences Auscultation: clear to auscultation bilaterally Cardio: Jugular venous distension: no JVD Rate: regular rate Rhythm: regular rhythm GI: GI Palp: Yes Soft to palpation and Yes No hepatosplenomegaly present Skin: General skin exam: other (B/L LE erythema.) Neuro: General: patient oriented x3 and CN's II-XI intact bilaterally Cranial nerves: Yes CN's II-XII intact bilaterally and Yes Equal, round and reactive pupils present Cognition (Neuro): normal cognition Motor exam (neuro): 5/5 motor strength present throughout Extrem: General: pedal edema bilaterally Objective Data Vital Signs Vital Signs: Vital Signs - 24 hr 05/05/20 20:00 05/05/20 21:04 05/05/20 21:37 Temperature 97.3 F L Pulse Rate 94 95 Respiratory Rate 20 Blood Pressure 130/75 Pulse Oximetry 96 99 96 05/06/20 01:52 05/06/20 02:03 05/06/20 05:49 Temperature 97.2 F L Pulse Rate 97 96 94 Respiratory Rate 22 H 20 18 Blood Pressure 152/70 H Pulse Oximetry 96 05/06/20 14:00 05/06/20 15:58 Temperature 97.6 F Pulse Rate 85 Respiratory Rate 20 Blood Pressure 159/80 H Pulse Oximetry 99 98 Intake/Output Intake/Output: Intake & Output 05/03/20 05/04/20 05/05/20 05/06/20 23:59 23:59 23:59 23:59 Intake Total 100 1020 Output Total
[2020-05-07] VITALS (8 sets, daily range): BP systolic 138–154; BP diastolic 50–72; PULSE 85–91; RESP 16–20; TEMP 36.3–37.2; O2SAT 95–99
[2020-05-07] MEDS: oxyCODONE HCL (*CRX) 5 MG TAB IR PO ×3 (02:09→14:39)
[2020-05-07] MEDS: oxyCODONE/ACETAMINOPHEN (*CRX) 5-325 MG TABLET 1 TABLET PO ×3 (02:09→14:38)
[2020-05-07] MEDS: ALBUTEROL SULFATE NEB 2.5 MG/0.5 ML INH INHALATION ×2 (08:08→14:28)
[2020-05-07] MEDS: CELECOXIB 100 MG CAPSULE PO (08:42)
[2020-05-07] MEDS: CHOLECALCIFEROL 1,000 UNITS TABLET 5000 UNITS PO (08:42)
[2020-05-07] MEDS: FAMOTIDINE 10 MG TABLET PO ×2 (08:43→17:22)
[2020-05-07] MEDS: ENOXAPARIN 40 MG/0.4 ML SYRINGE SUB-Q (08:43)
[2020-05-07] MEDS: DOCUSATE SODIUM 100 MG CAPSULE PO ×2 (08:43→17:22)
[2020-05-07] MEDS: FUROSEMIDE 20 MG TABLET PO (08:43)
[2020-05-07] MEDS: SILVERGEL (ELTA) 45 ML 1 APPLIC TOPICAL (08:45)
[2020-05-07] MEDS: POTASSIUM CHLORIDE 10 MEQ TABLET.ER PO ×2 (08:45→17:22)
[2020-05-07] MEDS: EUCERIN CREAM 120 GM JAR 1 APPLIC TOPICAL (08:45)
[2020-05-07] MEDS: OPTI-GEN TAB 1 TABLET PO ×2 (08:45→17:22)
[2020-05-07] MEDS: LORATADINE/PSEUDOEPHEDRINE (*CRX) 10/240 MG TABLET ER 24 HR 1 TAB PO (08:49)
--- NOTE | 2020-05-07 15:45 | PM.IMPN ---
Progress Note: A&P Assessment and Plan (1) Bilateral cellulitis of lower leg: Code(s): L03.116 - Cellulitis of left lower limb; L03.115 - Cellulitis of right lower limb Status: Acute Assessment and Plan: Continue Cefazolin. Continue to monitor. (2) Venous stasis ulcer: Code(s): I83.009 - Varicose veins of unspecified lower extremity with ulcer of unspecified site; L97.909 - Non-pressure chronic ulcer of unspecified part of unspecified lower leg with unspecified severity Status: Acute Assessment and Plan: Wound care evaluation done. (3) Dermatitis: Code(s): L30.9 - Dermatitis, unspecified Status: Acute Assessment and Plan: Likely secondary to venoustasis. (4) Cellulitis of both lower extremities: Code(s): L03.115 - Cellulitis of right lower limb; L03.116 - Cellulitis of left lower limb Status: Acute Assessment and Plan: Continue Cefazolin. (5) Chronic respiratory failure with hypoxia and hypercapnia: Code(s): J96.11 - Chronic respiratory failure with hypoxia; J96.12 - Chronic respiratory failure with hypercapnia Status: Chronic Assessment and Plan: Currently on room air. Subjective Date/time seen: 05/07/20 15:45 Patient seen and examined earlier today. States that she feels well, had a good night rest. Review of Systems Review of Systems: Narrative: No new issues, states that pain is well controlled. Constitutional: Comments: no chills. Cardiovascular: Comments: no pnd, no orhtopnea. Respiratory: Comments: no cough, no sputum production. Musculoskeletal: Comments: B/L LE edema. Integumentary/Breasts: Comments: B/L LE cellulitis. Exam Narrative: Exam Narrative: Sitting in bed. Const: General: comfortable, alert, awake and Physically active Nutritional Appearance: average body habitus Orientation/consciousness: patient oriented x3 Limitations: no limitations HENMT: Head: normal to inspection and normocephalic Ears: hearing grossly normal bilaterally Face and sinus: normal facial exam Neck: Neck: no lymphadenopathy, supple and no JVD Resp: Auscultation: clear to auscultation bilaterally Cardio: Jugular venous distension: no JVD Rate: regular rate Rhythm: regular rhythm GI: Inspection: normal to inspection GI Palp: Yes Soft to palpation and Yes No hepatosplenomegaly present Skin: General skin exam: other (B/L ALEK garner.) Neuro: General: patient oriented x3 and CN's II-XI intact bilaterally Cranial nerves: Yes CN's II-XII intact bilaterally and Yes Equal, round and reactive pupils present Cognition (Neuro): normal cognition Speech: normal speech Extrem: General: pedal edema bilaterally 1+ Objective Data Vital Signs Vital Signs: Vital Signs - 24 hr 05/06/20 15:58 05/06/20 20:00 05/06/20 21:06 Temperature Pulse Rate 81 81 Respiratory Rate 20 20 Blood Pressure Pulse Oximetry 98 97 100 05/06/20 22:00 05/07/20 05:30 05/07/20 08:00 Temperature 97.7 F 97.5 F L Pulse Rate 88 85 Respiratory Rate 20 20 Blood Pressure 148/85 H 154/72 H Pulse Oximetry 97 99 98 05/07/20 08:08 05/07/20 08:19 05/07/20 13:54 Temperature 97.4 F L Pulse Rate 90 91 90 Respiratory Rate 18 20 18 Blood Pressure 138/50 L Pulse Oximetry 98 99 05/07/20 14:28 05/07/20 14:37 Temperature Pulse Rate 88 90 Respiratory Rate 20 20 Blood Pressure Pulse Oximetry Intake/Output Intake/Output: Intake & Output 05/04/20 05/05/20 05/06/20 05/07/20 23:59 23:59 23:59 23:59 Intake Total 100 1070 1400 Output Total 900 400 Balance 350 115 7692 Meds/Results Medications: Active Medications Generic Name Dose Route Start Last Admin Trade Name Freq PRN Reason Stop Dose Admin Hydrocodone Bitart/Acetaminophen 1 tab 05/05/20 15:53 Hydrocodone/Acetaminophen (*Crx) 5-325 Mg Tablet PO Q4H PRN Pain Rated 4-6 Albuterol 2.5 mg 05/05/20 20:35 05/07/20 14:28 Albuterol Sul
[2020-05-08] MEDS: oxyCODONE HCL (*CRX) 5 MG TAB IR PO ×4 (01:19→20:05)
[2020-05-08] MEDS: oxyCODONE/ACETAMINOPHEN (*CRX) 5-325 MG TABLET 1 TABLET PO ×4 (01:25→20:04)
[2020-05-08] MEDS: SALINE 0.65% NAS SOLN 44 ML BTL 1 SPRAY NASAL ×2 (01:28→11:59)
[2020-05-08 06:00] VITALS: BP 154/59; PULSE 92; RESP 20; TEMP 36.5; O2SAT 100
[2020-05-08] MEDS: CELECOXIB 100 MG CAPSULE PO (08:59)
[2020-05-08] MEDS: OPTI-GEN TAB 1 TABLET PO ×2 (08:59→16:50)
[2020-05-08] MEDS: POTASSIUM CHLORIDE 10 MEQ TABLET.ER PO ×2 (08:59→16:50)
[2020-05-08] MEDS: DOCUSATE SODIUM 100 MG CAPSULE PO ×2 (08:59→16:50)
[2020-05-08] MEDS: ENOXAPARIN 40 MG/0.4 ML SYRINGE SUB-Q (08:59)
[2020-05-08] MEDS: CHOLECALCIFEROL 1,000 UNITS TABLET 5000 UNITS PO (08:59)
[2020-05-08] MEDS: FAMOTIDINE 10 MG TABLET PO ×2 (08:59→16:50)
[2020-05-08] MEDS: LORATADINE/PSEUDOEPHEDRINE (*CRX) 10/240 MG TABLET ER 24 HR 1 TAB PO (08:59)
[2020-05-08] MEDS: FUROSEMIDE 20 MG TABLET PO (08:59)
[2020-05-08] MEDS: EUCERIN CREAM 120 GM JAR 1 APPLIC TOPICAL (09:00)
[2020-05-08] MEDS: SILVERGEL (ELTA) 45 ML 1 APPLIC TOPICAL (09:00)
[2020-05-08 09:10] VITALS: O2SAT 93
[2020-05-08 14:00] VITALS: BP 148/62; PULSE 90; RESP 16; TEMP 36.4; O2SAT 100
--- NOTE | 2020-05-08 15:23 | PM.IMPN ---
Progress Note: A&P Assessment and Plan (1) Bilateral cellulitis of lower leg: Code(s): L03.116 - Cellulitis of left lower limb; L03.115 - Cellulitis of right lower limb Status: Acute Assessment and Plan: Improved Continue gauze wraps. Wound care following. (2) Venous stasis ulcer: Code(s): I83.009 - Varicose veins of unspecified lower extremity with ulcer of unspecified site; L97.909 - Non-pressure chronic ulcer of unspecified part of unspecified lower leg with unspecified severity Status: Acute Assessment and Plan: Continue present management. (3) Dermatitis: Code(s): L30.9 - Dermatitis, unspecified Status: Acute Assessment and Plan: Likely due to venous stasis. (4) Cellulitis of both lower extremities: Code(s): L03.115 - Cellulitis of right lower limb; L03.116 - Cellulitis of left lower limb Status: Acute Assessment and Plan: Continue Cefazolin. (5) New onset type 2 diabetes mellitus: Code(s): E11.9 - Type 2 diabetes mellitus without complications Status: Acute Assessment and Plan: Continue to monitor. On no treatment currently ISS as needed (6) Chronic respiratory failure with hypoxia and hypercapnia: Code(s): J96.11 - Chronic respiratory failure with hypoxia; J96.12 - Chronic respiratory failure with hypercapnia Status: Chronic Assessment and Plan: Continue to monitor Stable (7) Generalized weakness: Code(s): R53.1 - Weakness Status: Acute Assessment and Plan: PT/OT Subjective Date/time seen: 05/08/20 15:23 I feel much better but still feel like I need an extra day. Review of Systems Review of Systems: Narrative: No complains, no new issues over night, had a good night sleep. Constitutional: Comments: no chills. Cardiovascular: Comments: no chest pain, no pnd. Respiratory: Comments: no sob. Gastrointestinal: Comments: no n/v/abdominal pain. Musculoskeletal: Comments: b/l le redness, swelling. Integumentary/Breasts: Skin/Breast: Reports skin ulcer, Reports sores and Reports wounds (B/L LE) Neurologic: Comments: no sensory motor deficit. Exam Narrative: Exam Narrative: Sitting on chair. Const: General: cooperative, comfortable, no acute distress, alert, awake and Physically active Nutritional Appearance: average body habitus Orientation/consciousness: patient oriented x3 HENMT: Head: normal to inspection and normocephalic Ears: hearing grossly normal bilaterally General nose exam: Normal external nose present Face and sinus: normal facial exam Eyes: Pupils: Equal, round and reactive pupils present EOM: EOMs intact bilaterally Neck: Neck: no lymphadenopathy, supple and no JVD Resp: Effort & Inspection: normal respiratory effort Auscultation: clear to auscultation bilaterally Cardio: Jugular venous distension: no JVD Rate: regular rate Rhythm: regular rhythm GI: GI Palp: Yes Soft to palpation and Yes No hepatosplenomegaly present Skin: General skin exam: crusts (B/L LE), erythema, excoriation and other Neuro: General: patient oriented x3 and CN's II-XI intact bilaterally Cranial nerves: Yes CN's II-XII intact bilaterally and Yes Equal, round and reactive pupils present Motor exam (neuro): 5/5 motor strength present throughout Extrem: General: pedal edema bilaterally Objective Data Vital Signs Vital Signs: Vital Signs - 24 hr 05/07/20 21:57 05/08/20 06:00 05/08/20 09:10 Temperature 98.9 F 97.7 F Pulse Rate 88 92 Respiratory Rate 16 20 Blood Pressure 150/59 H 154/59 H Pulse Oximetry 95 100 93 Intake/Output Intake/Output: Intake & Output 05/05/20 05/06/20 05/07/20 05/08/20 23:59 23:59 23:59 23:59 Intake Total 100 1070 2630 490 Output Total 900 400 800 Balance 359 914 8729 -310 Meds/Results Medications: Active Medications Generic Name Dose Route Start Last Admin Trade Name Freq PRN Reason Stop Dose Admin Hydrocodo
[2020-05-08 22:00] VITALS: BP 151/81; PULSE 91; RESP 16; TEMP 36.5; O2SAT 100
[2020-05-09] MEDS: oxyCODONE HCL (*CRX) 5 MG TAB IR PO ×5 (00:04→19:57)
[2020-05-09] MEDS: oxyCODONE/ACETAMINOPHEN (*CRX) 5-325 MG TABLET 1 TABLET PO ×5 (00:05→19:58)
[2020-05-09 06:00] VITALS: BP 154/85; PULSE 90; RESP 18; TEMP 36.6; O2SAT 100
[2020-05-09] MEDS: LORATADINE/PSEUDOEPHEDRINE (*CRX) 10/240 MG TABLET ER 24 HR 1 TAB PO (08:58)
[2020-05-09] MEDS: FUROSEMIDE 20 MG TABLET PO (08:58)
[2020-05-09] MEDS: OPTI-GEN TAB 1 TABLET PO ×2 (08:58→17:52)
[2020-05-09] MEDS: POTASSIUM CHLORIDE 10 MEQ TABLET.ER PO ×2 (08:58→17:52)
[2020-05-09] MEDS: ENOXAPARIN 40 MG/0.4 ML SYRINGE SUB-Q (08:58)
[2020-05-09] MEDS: DOCUSATE SODIUM 100 MG CAPSULE PO ×2 (08:58→17:52)
[2020-05-09] MEDS: CELECOXIB 100 MG CAPSULE PO (08:58)
[2020-05-09] MEDS: FAMOTIDINE 10 MG TABLET PO ×2 (08:58→17:52)
[2020-05-09] MEDS: CHOLECALCIFEROL 1,000 UNITS TABLET 5000 UNITS PO (08:58)
[2020-05-09] MEDS: SILVERGEL (ELTA) 45 ML 1 APPLIC TOPICAL (08:59)
[2020-05-09] MEDS: SALINE 0.65% NAS SOLN 44 ML BTL 1 SPRAY NASAL (08:59)
[2020-05-09] MEDS: EUCERIN CREAM 120 GM JAR 1 APPLIC TOPICAL (09:00)
[2020-05-09 09:15] VITALS: O2SAT 98
[2020-05-09 14:00] VITALS: BP 137/73; PULSE 75; RESP 18; TEMP 36.3; O2SAT 98
[2020-05-09] MEDS: ALBUTEROL SULFATE NEB 2.5 MG/0.5 ML INH INHALATION (14:11)
[2020-05-09 14:13] VITALS: PULSE 90; RESP 20
[2020-05-09 14:17] VITALS: PULSE 90; RESP 20
--- NOTE | 2020-05-09 18:14 | PM.DS ---
DS: Admitting Diagnosis Admitting Diagnosis Admitting Diagnosis: (1) Bilateral cellulitis of lower leg: Code(s): L03.116 - Cellulitis of left lower limb; L03.115 - Cellulitis of right lower limb Status: Acute Assessment and Plan: (2) Venous stasis ulcer: Code(s): I83.009 - Varicose veins of unspecified lower extremity with ulcer of unspecified site; L97.909 - Non-pressure chronic ulcer of unspecified part of unspecified lower leg with unspecified severity Status: Acute Assessment and Plan: (3) Chronic anemia: Code(s): D64.9 - Anemia, unspecified Status: Chronic Assessment and Plan: (4) Generalized weakness: Code(s): R53.1 - Weakness Status: Acute Assessment and Plan: PT and OT evaluation please (5) CHF (congestive heart failure): Onset Date: Unknown Qualifiers: Heart failure chronicity: unspecified Heart failure type: unspecified Qualified Code(s): I50.9 - Heart failure, unspecified Code(s): I50.9 - Heart failure, unspecified Status: Chronic Assessment and Plan: Continue with her home Lasix (6) Hyponatremia: Onset Date: Unknown Code(s): E87.1 - Hypo-osmolality and hyponatremia Status: Chronic Assessment and Plan: (7) DVT prophylaxis: Code(s): Z29.9 - Encounter for prophylactic measures, unspecified Status: Acute Assessment and Plan: (8) COPD exacerbation: Code(s): J44.1 - Chronic obstructive pulmonary disease with (acute) exacerbation Status: Chronic Assessment and Plan: (9) HTN (hypertension): Qualifiers: Hypertension type: essential hypertension Qualified Code(s): I10 - Essential (primary) hypertension Code(s): I10 - Essential (primary) hypertension Status: Chronic DS: Discharge Diagnosis Discharge Diagnosis (1) Bilateral cellulitis of lower leg: Code(s): L03.116 - Cellulitis of left lower limb; L03.115 - Cellulitis of right lower limb Status: Acute (2) Venous stasis ulcer: Code(s): I83.009 - Varicose veins of unspecified lower extremity with ulcer of unspecified site; L97.909 - Non-pressure chronic ulcer of unspecified part of unspecified lower leg with unspecified severity Status: Acute (3) Dermatitis: Code(s): L30.9 - Dermatitis, unspecified Status: Acute (4) Cellulitis of both lower extremities: Code(s): L03.115 - Cellulitis of right lower limb; L03.116 - Cellulitis of left lower limb Status: Acute (5) Acute metabolic encephalopathy: Code(s): G93.41 - Metabolic encephalopathy Status: Resolved (6) Chronic anemia: Code(s): D64.9 - Anemia, unspecified Status: Chronic (7) Chronic respiratory failure with hypoxia and hypercapnia: Code(s): J96.11 - Chronic respiratory failure with hypoxia; J96.12 - Chronic respiratory failure with hypercapnia Status: Chronic (8) Lower extremity cellulitis: Qualifiers: Laterality: unspecified laterality Qualified Code(s): L03.119 - Cellulitis of unspecified part of limb Code(s): L03.119 - Cellulitis of unspecified part of limb Status: Acute (9) Generalized weakness: Code(s): R53.1 - Weakness Status: Acute (10) Nonhealing ulcer of left lower extremity: Code(s): L97.929 - Non-pressure chronic ulcer of unspecified part of left lower leg with unspecified severity Status: Acute (11) Hyponatremia: Onset Date: Unknown Code(s): E87.1 - Hypo-osmolality and hyponatremia Status: Chronic (12) New onset type 2 diabetes mellitus: Code(s): E11.9 - Type 2 diabetes mellitus without complications Status: Acute DS: Summary Hospital Course Hospital Course: Belinda Black is a 79 year old female had several episodes of bilateral cellulitis of the lower leg and is even seen wound care here in the past. She also has
[2020-05-09 21:29] VITALS: BP 148/69; PULSE 91; RESP 18; TEMP 36.3; O2SAT 99
== END 2020-05-09 22:05 | disposition home health service (06) | DRG 603 ==
LOC: ANHED 16:01 → ANH2MED 17:00
PROVIDERS: Admitting Provider Internal Medicine; Emergency Provider Emergency Medicine; PCP Internal Medicine; Visit Provider Internal Medicine
DX: L03.116 Cellulitis of left lower limb (principal); J96.11 Chronic respiratory failure with hypoxia; J96.12 Chronic respiratory failure with hypercapnia; I50.32 Chronic diastolic (congestive) heart failure; L97.929 Non-pressure chronic ulcer of unspecified part of left lower leg with unspecified severity; L97.919 Non-pressure chronic ulcer of unspecified part of right lower leg with unspecified severity; L03.115 Cellulitis of right lower limb; K21.9 Gastro-esophageal reflux disease without esophagitis; E55.9 Vitamin D deficiency, unspecified; E11.9 Type 2 diabetes mellitus without complications; J43.9 Emphysema, unspecified; G89.4 Chronic pain syndrome; I35.0 Nonrheumatic aortic (valve) stenosis; G47.33 Obstructive sleep apnea (adult) (pediatric); I87.2 Venous insufficiency (chronic) (peripheral); Z96.651 Presence of right artificial knee joint; Z87.891 Personal history of nicotine dependence
CPT/HCPCS: 36415; 71045; 80048; 83605; 83880; 85025; 85610; 85730; 87040; 93005; 94640; 96365; 96366; 96376; 97110; 97161; 97165; 97530; 97535; 99285; A9270; G0378; J0690; J1650

== ENCOUNTER 2021-03-13 14:00 | Outpatient (CLI) | payer MEDICARE, SELFPAY ==
[2021-03-13 14:36] LABS: Basophils Absolute Auto 0.1 K/mm3 (0.0-0.1); Basophils Percent Auto 0.7 % (0.2-1.2); Eosinophils Absolute Auto 0.4 K/mm3 (0-0.3); Eosinophils Percent Auto 5.2 % (0-4.4); Hematocrit 35.8 % (37.0-47.0); Hemoglobin 11.2 g/dL (12.0-15.0); Immature Granulocyte Absolute 0.04 K/mm3 (0.00-0.031); Immature Granulocyte Percent A 0.5 % (0-0.5); Lymphocytes Percent Auto 9.5 % (18.3-44.2); Mean Corpuscular HGB Conc 31.3 g/dl (32-36); Mean Corpuscular Hemoglobin 27.7 pg (26-34); Mean Corpuscular Volume 88.6 fl (80-100); Mean Platelet Volume 9.4 fl (7.4-10.4); Monocytes Absolute Auto 0.7 K/mm3 (0.1-0.6); Neutrophils Absolute Auto 5.5 K/mm3 (1.3-6.7); Neutrophils Percent Auto 75.1 % (45.5-73.1); Platelet Count Result 240 k/mm3 (150-375); Red Blood Count 4.04 M/mm3 (4.2-5.4); White Blood Count 7.4 K/mm3 (4.5-10.0)
[2021-03-13 14:46] LABS: Alanine Aminotransferase 11 U/L (4-35); Albumin Level 4.2 g/dL (3.5-5.1); Alkaline Phosphatase 81 U/L (38-126); Anion Gap 2 mmol/L (8-16); Aspartate Amino Transferase 22 U/L (14-36); Bilirubin,Total 0.3 mg/dL (0.2-1.3); Blood Urea Nitrogen 14 mg/dL (7-17); Calcium 9.9 mg/dL (8.4-10.2); Carbon Dioxide 39 mmol/L (22-30); Chloride 93 mmol/L (98-107); Cholesterol 206 mg/dL (0-200); Estimated Glomerular Filt Rate > 60; Glucose 124 mg/dL (65-110); HDL Direct 93 mg/dL; Potassium 4.1 mmol/L (3.4-5.0); Sodium 134 mmol/L (137-145); Triglycerides 77 mg/dL (<150)
[2021-03-13 14:58] LABS: LDL Cholesterol Direct 83 mg/dL
[2021-03-13 15:03] LABS: Vitamin D 25 Hydroxy 64.8 ng/mL
[2021-03-13 16:53] LABS: Hemoglobin A1C 5.2 % (<5.7)
== END 2021-03-13 14:01 | disposition home or self-care (01) ==
PROVIDERS: PCP Internal Medicine; Visit Provider Nurse Practitioner
DX: E11.9 Type 2 diabetes mellitus without complications (principal); D64.9 Anemia, unspecified; E55.9 Vitamin D deficiency, unspecified; Z13.220 Encounter for screening for lipoid disorders
CPT/HCPCS: 36415; 80053; 80061; 82306; 83036; 85025

== ENCOUNTER 2021-04-26 22:58 | Inpatient (IN) | payer MEDICARE, SELFPAY ==
--- NOTE | ~2021-04-26 | XR_ITS ---
XR chest 1V portable DATE: 05/04/2021 06:25 INDICATION: Congestive heart failure TECHNIQUE: Portable upright AP chest on 05/04/2021 at 0545 hours COMPARISON: 05/02/2021 portable AP chest at 0547 hours 04/27/2021 portable AP chest at 1301 hours FINDINGS: Normal heart size. Aortic arch calcification and minimal aortic unfolding. There is mild infiltrate and/or atelectasis in the lung bases. Severe bilateral glenohumeral osteoarthritis. Diffuse osteopenia. Levoscoliosis of the thoracic spine . IMPRESSION: Bibasilar mild infiltrate and/or atelectasis Reviewed, dictated and finalized at location A. CIPAL ENGINEER
--- NOTE | ~2021-04-26 | XR_ITS ---
EXAMINATION: XR chest 1V portable EXAM DATE: 04/27/2021 00:06 INDICATION: SOB, low oxygen saturation. CHF COPD, emphysema. Hypertension. TECHNIQUE: Portable AP frontal chest x-ray was obtained. Comparison is made to prior examination from 05/05/2020. FINDINGS: The lungs are clear. There are no pleural effusions. The cardiomediastinal silhouette is within normal limits. There is no pneumothorax suspected. The bones and soft tissues are unremarkab le. Lumbar fusion hardware. Some hyperinflation. IMPRESSION: No acute cardiopulmonary findings. Reviewed, dictated and finalized at location A. NG MACHINE MAINTENANCE MECHANIC
--- NOTE | ~2021-04-26 | XR_ITS ---
EXAMINATION: XR abdomen/kub 1V DATE: 05/05/2021 11:31 INDICATION: Constipation TECHNIQUE: A supine view of the abdomen on 2 radiographs was obtained. COMPARISON: 11/11/2019 FINDINGS: Moderate amount of stool scattered throughout the colon extending to the rectum which would be consis tent with the provided history of constipation. No dilated gas-filled loops of bowel to suggest obstr uction. Calcified nodule at the right lung base consistent with old granulomatous disease. Heart size is normal. Severe thoracolumbar spondylosis with instrumented anterior and posterior spinal fusion a t L2-L5. IMPRESSION: 1. Moderate amount of colonic stool consistent with given history of constipation. Reviewed, dictated and finalized at location B. ESTATE SALESPERSON IMPRESSION: 1. Moderate amount of colonic stool consistent with given history of constipati on.
--- NOTE | ~2021-04-26 | XR_ITS ---
EXAMINATION: XR chest 1V portable DATE: 05/02/2021 07:07 INDICATION: Congestive heart failure. TECHNIQUE: A single frontal view of the chest was obtained. COMPARISON: Chest single view 04/27/2021, chest CT 04/27/2021 FINDINGS: There are lucencies in the upper lungs, consistent with emphysema. A calcified right lung n odule and calcified right hilar lymph nodes are consistent with old granulomatous disease. There are airspace opacities at left lung base. There is a small left pleural effusion. No pneumothorax. The he art size is normal. There are changes of posterior fusion procedure in lumbar spine. IMPRESSION: 1. Worsened airspace opacities at left lung base, consistent with atelectasis versus pneumonia. 2. Small left pleural effusion. 3. Severe emphysema. Reviewed, dictated and finalized at location A. BURNER SERVICER AND INSTALLER IMPRESSION: 1. Worsened airspace opacities at left lung base, consistent with atelectasis v ersus pneumonia. 2. Small left pleural effusion. 3. Severe emphysema.
--- NOTE | ~2021-04-26 | CT_ITS ---
EXAMINATION: CTA chest PE protocol DATE: 04/27/2021 16:12 INDICATION: Respiratory distress. Possible pulmonary embolism. TECHNIQUE: Computed tomography angiography (CTA) of the chest was performed with 100 mL Omnipaque-350 intravenous contrast timed to evaluate the pulmonary arteries. Coronal maximum intensity projection 3D-reconstructions were created by the technologist. Automated exposure control and iterative reconst ruction technique were employed. Exam dose: 967.16 mGy-cm total exam DLP. COMPARISON: 11/11/2019 CTA chest 04/27/2021 portable AP chest FINDINGS: There is diagnostic contrast enhancement of the pulmonary arteries and no evidence of pulmo nary embolism. There is aortic atherosclerosis. No thoracic aortic aneurysm. Heart size is normal. No pericardial effusion or pleural effusion. No hilar or mediastinal mass lesion or lymphadenopathy. Previously reported right thyroid mass. Thyroid ultrasound would be helpful for more definitive evalu ation. Emphysematous changes of the lungs. No pulmonary infiltrate or consolidation. Prominent degenerative disc disease of the lower cervical spine. There is degenerative spurring throu ghout the thoracic spine. Lumbar pedicle screws are noted and included L2 and L3 vertebrae. Severe osteoarthritic changes are noted at the glenohumeral joints. IMPRESSION: No evidence of pulmonary embolism Emphysema Right thyroid mass; consider thyroid ultrasound for further evaluation Reviewed, dictated and finalized at Location A. Reviewed, dictated and finalized at location A. ACKUP ADMIN
--- NOTE | ~2021-04-26 | XR_ITS ---
EXAMINATION: XR chest 1V portable DATE: 04/27/2021 13:07 INDICATION: Respiratory distress TECHNIQUE: frontal view of the chest was obtained. COMPARISON: Chest radiograph dated 04/27/2021 FINDINGS: The lungs remain clear with no focal airspace opacities, pulmonary edema, pleural effusion or pneumot horax. The cardiomediastinal silhouette is normal. Visualized bones and soft tissues are unremarkable . IMPRESSION: 1. No acute cardiopulmonary disease. Reviewed, dictated and finalized at location H. TS ASSOCIATE
[2021-04-26 22:57] VITALS: BP 147/94; PULSE 102; RESP 24; TEMP 36.7; O2SAT 98
[2021-04-26 23:07] VITALS: PULSE 100
[2021-04-26 23:08] VITALS: O2SAT 100
[2021-04-26 23:30] VITALS: O2SAT 99
--- NOTE | 2021-04-26 23:52 | ECG_ITS ---
Measurements Intervals [place] Rate: 100 P: 79 MT: 181 QRS: 36 QRSD: 72 T: 81 QT: 314 QTc: 407 Interpretive Statements SINUS TACHYCARDIA LOW QRS VOLTAGE IN PRECORDIAL LEADS BASELINE ARTIFACT- I, II, AVR, AVL, AVF, V1 BORDERLINE ECG Electronically Signed On 04-27-2021 6:35:13 STRESS TEST TECHNICIAN by Moiz Melton D.O.
[2021-04-27] VITALS (45 sets, daily range): BP systolic 99–205; BP diastolic 60–135; PULSE 88–929; RESP 14–33; TEMP 36.3–36.8; O2SAT 90–100
[2021-04-27 00:13] LABS: Basophils Absolute Auto 0.1 K/mm3 (0.0-0.1); Basophils Percent Auto 0.7 % (0.2-1.2); Eosinophils Absolute Auto 0.4 K/mm3 (0-0.3); Hematocrit 34.1 % (37.0-47.0); Hemoglobin 10.5 g/dL (12.0-15.0); Immature Granulocyte Absolute 0.01 K/mm3 (0.00-0.031); Immature Granulocyte Percent A 0.1 % (0-0.5); Lymphocytes Absolute Auto 1.05 K/mm3 (0.9-3.2); Lymphocytes Percent Auto 15.4 % (18.3-44.2); Mean Corpuscular HGB Conc 30.8 g/dl (32-36); Mean Corpuscular Hemoglobin 27.4 pg (26-34); Monocytes Absolute Auto 0.8 K/mm3 (0.1-0.6); Monocytes Percent Auto 11.2 % (2.6-8.5); Neutrophils Absolute Auto 4.5 K/mm3 (1.3-6.7); Neutrophils Percent Auto 66.6 % (45.5-73.1); Platelet Count Result 237 k/mm3 (150-375); Red Blood Count 3.83 M/mm3 (4.2-5.4); Red Cell Distribution Width 13.4 % (11.5-14.5); White Blood Count 6.8 K/mm3 (4.5-10.0)
[2021-04-27 00:23] LABS: pH ABG 7.412 (7.350-7.450)
[2021-04-27 00:24] LABS: Alveolar/Arterial O2 Gradient 105.5 mmHg; Base Excess ABG 12.8 mEq/l (+/-2.0); HCO3 ABG 39.7 mEq/l (22.0-26.0); Oxygen Saturation ABG 95.2 % (95.0-100.0); PCO2 ABG 63.8 mmHg (35.0-45.0); PO2 ABG 77.4 mmHg (80.0-100.0); Total Hemoglobin 11.3 g/dL (12.0-18.0)
[2021-04-27 00:25] LABS: Carboxyhemoglobin 0.5 % THb (0-2.0); Methemoglobin ABG 0.2 %THb (0-1.5); Oxyhemoglobin 93.9 % THb (90.0-100.0)
[2021-04-27 00:26] LABS: Device NASAL CANNULA; Fractional Inspired Oxygen 36 %; Modified Allen's Test Pass; PO2 FiO2 Ratio Arterial Blood 2.15 %; Reduced Hemoglobin 5.4 %THb (0-5.0); Site Drawn RIGHT RADIAL
[2021-04-27 00:30] LABS: Alanine Aminotransferase 12 U/L (4-35); Albumin Level 3.9 g/dL (3.5-5.1); Alkaline Phosphatase 72 U/L (38-126); Anion Gap 2 mmol/L (8-16); Aspartate Amino Transferase 22 U/L (14-36); Bilirubin,Total 0.3 mg/dL (0.2-1.3); Blood Urea Nitrogen 17 mg/dL (7-17); Calcium 9.2 mg/dL (8.4-10.2); Carbon Dioxide 37 mmol/L (22-30); Chloride 90 mmol/L (98-107); Estimated CRCL calculation 59 ml/min; Estimated Glomerular Filt Rate > 60; Glucose 145 mg/dL (65-110); Potassium 4.1 mmol/L (3.4-5.0); Sodium 129 mmol/L (137-145)
--- NOTE | 2021-04-27 01:17 | ED.SOB ---
HPI - SOB/Dyspnea General Chief Complaint: Shortness of Breath/Dyspnea Stated Complaint: sob - 6lnc 74% Time Seen by Provider: 04/26/21 23:05 History of Present Illness HPI Narrative: Patient is an 80-year-old female who presents ER with shortness of breath from home. Apparently patient was satting 74% on 6 L nasal cannula. At baseline patient wears 4 L of oxygen. EMS provide CPAP. Patient denies fevers or chills or cough however she is confused easily. She has no reports of pain. She is distracted by how she wants her covers on her legs. Related Data Home Medications Medication Instructions Recorded Confirmed cholecalciferol (vitamin D3) 125 5,000 unit PO DAILY 03/16/19 04/27/21 mcg (5,000 unit) tablet PreserVision AREDS-2 1 tablet PO BID 07/12/19 04/27/21 [place] Nasal 1 spray INTRANASAL Q6H PRN 05/05/20 04/27/21 celecoxib 100 mg PO DAILY 05/05/20 04/27/21 fexofenadine-pseudoephedrine 60 tablet PO BID 05/05/20 04/27/21 [Marzena-D 12 Hour] potassium chloride 10 meq PO DAILY 05/05/20 04/27/21 budesonide-formoterol [Symbicort] 2 puff INHALATION Q12H 04/27/21 04/27/21 calcium carbonate 600 mg PO DAILY 04/27/21 04/27/21 furosemide 20 mg PO DAILY 04/27/21 04/27/21 omeprazole 20 mg PO DAILY 04/27/21 04/27/21 oxycodone-acetaminophen 1 tablet PO TID PRN 04/27/21 04/27/21 oxymetazoline-menthol [[place]ristan 1 spray INTRANASAL Q12H PRN 04/27/21 04/27/21 [place]] tiotropium bromide [Spiriva with 1 cap INHALATION DAILY 04/27/21 04/27/21 [place]] Allergies Allergy/AdvReac Type Severity Reaction Status Date / Time aluminum aspirin Allergy Mild pt does Verified 04/27/21 05:30 not know aspirin Allergy Mild rash Verified 04/26/21 23:15 Sulfa (Sulfonamide Allergy Mild THROAT, Verified 04/26/21 23:15 Antibiotics) TONGUE SWELLING,Unknown Review of Systems Review of Systems: ROS unobtainable: Yes unobtainable due to mental status [facility] Past Medical History Medical History (Updated 04/27/21 @ 07:30 by Caleb Ling MD) Abdominal bruit Renal US negative for stenosis 08/2019. Adhesive capsulitis of right shoulder Aortic stenosis Mild on echocardiogram from October 2018. Borderline diabetic The patient stated she is not taking anything for her diabetes and she is not diabetic. Cataracts, bilateral Maturing cataracts bilaterally. Chronic diastolic (congestive) heart failure (Unknown) Echocardiogram October 2018 demonstrated normal left ventricular systolic function with EF of 65-70% grade 1 diastolic dysfunction mild aortic stenosis with a normal RVSP of 34. Chronic hyponatremia Chronic pain syndrome With chronic back, bilateral shoulder, and left knee pain. 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 Essential (primary) hypertension (Unknown) Fractured coccyx GERD (gastroesophageal reflux disease) History of angina History of tobacco abuse Hyponatremia (Unknown) Insomnia Liver mass 21 mm likely benign noted on imaging for 2017. Liver mass Obstructive sleep apnea Noncompliant with CPAP therapy at home. Thyroid nodule On CT scan from July 2017. Ulcerative colitis Venous stasis dermatitis of both lower extremities Venous stasis ulcer Vitamin D deficiency Surgical History Surgical History History of arthroscopy of left knee (~2000) History of lumbar surgery (~2001) History of tonsillectomy History of total right knee replacement (~01/2012) History of ventral hernia repair With abdominoplasty. Family History Family History Mother Diabetes mellitus Father COPD (chronic obstructive pulmonary disease) Social History Social History Social History: The patient lives at home with her of 60 years.
--- NOTE | 2021-04-27 01:17 | PM.IMHP ---
H&P: HPI History of Present Illness Date/Time: 04/27/21 01:17 Chief Complaint: Shortness of breath. Narrative: This is an 80-year-old female with past medical history significant for COPD/emphysema, chronic respiratory failure with hypoxia and hypercapnia, chronic pain syndrome, chronic hyponatremia, chronic diastolic heart failure, aortic stenosis, hypertension, gastroesophageal reflux disease, obstructive sleep apnea noncompliant with CPAP. Patient was brought to the emergency room due to shortness of breath found to be saturating 74% on 6 L of supplemental oxygen by nasal cannula. Preliminary workup was significant for a blood gas with a pCO2 of 63 pH of 7.4 PO2 of 77. At the time of my visit to patient was on BiPAP unable to give much history. Review of Systems Review of Systems: Patient brought to the emergency room due to low oxygen saturation on 6 L by nasal cannula at 74% ROS unobtainable: Yes unobtainable due to medical condition (On BiPAP) [facility] Past Medical History Medical History (Updated 04/27/21 @ 05:07 by Esther Hawthorne MD) Abdominal bruit Renal US negative for stenosis 08/2019. Adhesive capsulitis of right shoulder Aortic stenosis Mild on echocardiogram from October 2018. Borderline diabetic The patient stated she is not taking anything for her diabetes and she is not diabetic. Cataracts, bilateral Maturing cataracts bilaterally. Chronic diastolic (congestive) heart failure (Unknown) Echocardiogram October 2018 demonstrated normal left ventricular systolic function with EF of 65-70% grade 1 diastolic dysfunction mild aortic stenosis with a normal RVSP of 34. Chronic hyponatremia Chronic pain syndrome With chronic back, bilateral shoulder, and left knee pain. 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 Essential (primary) hypertension (Unknown) Fractured coccyx GERD (gastroesophageal reflux disease) History of angina History of tobacco abuse Hyponatremia (Unknown) Insomnia Liver mass 21 mm likely benign noted on imaging for 2017. Liver mass Obstructive sleep apnea Noncompliant with CPAP therapy at home. Thyroid nodule On CT scan from July 2017. Ulcerative colitis Venous stasis dermatitis of both lower extremities Venous stasis ulcer Vitamin D deficiency Surgical History Surgical History History of arthroscopy of left knee (~2000) History of lumbar surgery (~2001) History of tonsillectomy History of total right knee replacement (~01/2012) History of ventral hernia repair With abdominoplasty. Family History Family History Mother Diabetes mellitus Father COPD (chronic obstructive pulmonary disease) Social History Social History Social History: The patient lives at home with her of 60 years. 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 She has a 50 pack year smoking history and quit in 2007. No alcohol or illicit substance use. She mostly uses a wheelchair now. Primary care physician: Dr. Wing Cesar Code status: Full code Smoking packs per day: 1 Smoking cigarettes per day: 20.0 Years smoked: 30 Smoking pack-years: 30.00 Smoking status: Former smoker Tobacco type: cigarettes Second hand tobacco smoke exposure: No Smoking end date: 05/02/04 Additional smoking assessment comments: Alcohol intake: never Alcohol use details: She only drank alcohol on occasion and in moderation. Substance use: current Substance use type: painkillers Gender identity (if verbalized by the patient): Female Sexual Orientation (if Verbalized by the Patient): Straight or Heterosexual Spiritual care concerns: No Agree to blood products: Yes Meds Home Medications and A
[2021-04-27 02:13] LABS: EDCOVIDSCREEN Negative (Negative)
[2021-04-27] MEDS: ALBUTEROL SULFATE NEB 2.5 MG/0.5 ML INH 5 MG INHALATION ×2 (03:27→14:36)
[2021-04-27] MEDS: LEVALBUTEROL NEB 1.25 MG/3 ML 0.63 MG INHALATION ×3 (03:27→21:48)
[2021-04-27] MEDS: MORPHINE SULFATE (*CRX) 4 MG/ML INJ IV PUSH (03:38)
--- NOTE | 2021-04-27 03:51 | PC.NURSE ---
Report to BECKY brunson for 213. Awaiting RT to transport pt with this RN.
--- NOTE | 2021-04-27 05:29 | PC.NURSE ---
This patient, Belinda Black, was admitted to IMU Room 213-01. Patient/family oriented to hospital policies and general routines including ID bracelet, bed and alarms, visiting hours, pain management, procedures, bathroom and other care routines, personal items, smoking policy, room service/diet, and visiting hours. Information on how to activate the Rapid Response Team has been discussed. Patient/Family are encouraged to report perceived risks to care and to ask questions if they do not understand what they are told or what they should do.
[2021-04-27] MEDS: methylPREDNISolone SOD SUCC 125 MG VIAL 80 MG IV PUSH (05:47)
[2021-04-27 08:16] LABS: Alveolar/Arterial O2 Gradient 92.1 mmHg; Base Excess ABG 12.8 mEq/l (+/-2.0); Carboxyhemoglobin 0.3 % THb (0-2.0); Fractional Inspired Oxygen 45 %; HCO3 ABG 40.4 mEq/l (22.0-26.0); Methemoglobin ABG 0.4 %THb (0-1.5); Oxygen Content ABG 16.8 %vol (16.0-22.0); Oxygen Saturation ABG 98.9 % (95.0-100.0); Oxyhemoglobin 97.7 % THb (90.0-100.0); PO2 ABG 151.6 mmHg (80.0-100.0); PO2 FiO2 Ratio Arterial Blood 3.37 %; Reduced Hemoglobin 1.6 %THb (0-5.0); pH ABG 7.393 (7.350-7.450)
[2021-04-27 08:21] LABS: Device BIPAP; Expiratory Pressure 8 cmH2O; Inspiratory Pressure 16 cmH2O; Modified Allen's Test Pass; PCO2 ABG 67.8 mmHg (35.0-45.0); Site Drawn RIGHT RADIAL
--- NOTE | 2021-04-27 10:47 | PM.CNPUL ---
Assessment and Plan Assessment and plan (1) Decompensated COPD with exacerbation (chronic obstructive pulmonary disease): Code(s): J44.1 - Chronic obstructive pulmonary disease with (acute) exacerbation Status: Acute Assessment and Plan: 80-year-old female with history of advanced COPD, severe centrilobular emphysema on recent chest CT, hypoxemic hypercapnic respiratory failure on just supplemental oxygen at home, history of sleep apnea on no treatment presented with shortness of breath, hypoxemia, no new infiltrates on chest x-ray, elevated pCO2 with alkalotic pH. The patient has a component of metabolic alkalosis related to possibly diuretics and/or to Calcium carbonate she is on. She seems to respond well to BiPAP support. I have made changes to her BiPAP settings. I have discontinued the IV steroids and switched her to p.o. steroids starting in a.m.. I would avoid sedatives, and order CTA to exclude pulmonary embolism. Further recommendations based upon the findings of chest CT. (2) Morbid obesity with BMI of 40.0-44.9, adult: Code(s): E66.01 - Morbid (severe) obesity due to excess calories; Z68.41 - Body mass index [BMI] 40.0-44.9, adult Status: Acute (3) Obstructive sleep apnea: Code(s): G47.33 - Obstructive sleep apnea (adult) (pediatric) Status: Acute History of Present Illness History of Present Illness Consult date: 04/27/21 Chief complaint: Hypercapnic Respiratory Failure, COPD Narrative: this 80-year-old female presented with shortness of breath. The patient has advanced emphysema with some supplemental oxygen for more than 10 years. In addition the patient has history of CHF and obstructive sleep apnea for which she refused CPAP treatment in the past. Previous chest CT showed advanced centrilobular emphysema. The patient has had multiple hospitalizations for COPD exacerbation over the last 2 years. patient developed shortness of breath but had no other respiratory symptoms such as cough sputum production fever chills chest pain. She was tested negative for COVID. Initial chest x-ray showed COPD changes and no new infiltrates. Arterial blood gases showed chronic respiratory acidosis well compensated and hypoxemia. The patient has been treated with BiPAP support and supplemental oxygen. She is also on high-dose IV steroids presumably for COPD exacerbation. She has a fibrotic support and 16/ respiratory rate 24 and 45 % supplemental oxygen. Review of Systems Review of Systems: All systems reviewed & are unremarkable except as noted in HPI and below (H and P and below) [facility] Past Medical History Medical History (Updated 04/27/21 @ 07:30 by Caleb Ling MD) Abdominal bruit Renal US negative for stenosis 08/2019. Adhesive capsulitis of right shoulder Aortic stenosis Mild on echocardiogram from October 2018. Borderline diabetic The patient stated she is not taking anything for her diabetes and she is not diabetic. Cataracts, bilateral Maturing cataracts bilaterally. Chronic diastolic (congestive) heart failure (Unknown) Echocardiogram October 2018 demonstrated normal left ventricular systolic function with EF of 65-70% grade 1 diastolic dysfunction mild aortic stenosis with a normal RVSP of 34. Chronic hyponatremia Chronic pain syndrome With chronic back, bilateral shoulder, and left knee pain. 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 Essential (primary) hypertension (Unknown) Fractured coccyx GERD (gastroesophageal reflux disease) History of angina History of tobacco abuse Hyponatremia (Unknown) Insomnia Liver mass 21 mm likely benign noted on imaging for 2017. Liver mass Obstructive sleep apnea Noncompliant with CPAP therapy at home. Thyroid nodule On CT scan from July 2017. Ulcerative colitis Venous stasis dermatitis of bot
[2021-04-27 10:49] LABS: Alveolar/Arterial O2 Gradient 122.2 mmHg; Base Excess ABG 9.1 mEq/l (+/-2.0); Carboxyhemoglobin 0.3 % THb (0-2.0); Fractional Inspired Oxygen 45 %; HCO3 ABG 36.6 mEq/l (22.0-26.0); Methemoglobin ABG 0.4 %THb (0-1.5); Oxygen Saturation ABG 98.2 % (95.0-100.0); PO2 ABG 123.2 mmHg (80.0-100.0); PO2 FiO2 Ratio Arterial Blood 2.74 %; Reduced Hemoglobin 2.3 %THb (0-5.0); Total Hemoglobin 11.6 g/dL (12.0-18.0)
--- NOTE | 2021-04-27 10:49 | PM.IMPN ---
Progress Note: A&P Assessment and Plan (1) Acute on chronic respiratory failure with hypoxia and hypercapnia: Code(s): J96.21 - Acute and chronic respiratory failure with hypoxia; J96.22 - Acute and chronic respiratory failure with hypercapnia Status: Acute Assessment and Plan: Patient is currently on BiPAP Try and keep oxygen saturation between 90-94% Supportive care (2) Decompensated COPD with exacerbation (chronic obstructive pulmonary disease): Code(s): J44.1 - Chronic obstructive pulmonary disease with (acute) exacerbation Status: Acute Assessment and Plan: Breathing treatments Systemic steroids Non productive cough No sputum production or change in sputum quality (3) Obstructive sleep apnea: Code(s): G47.33 - Obstructive sleep apnea (adult) (pediatric) Status: Acute Assessment and Plan: Patient not currently using CPAP at nighttime (4) Aortic stenosis: Code(s): I35.0 - Nonrheumatic aortic (valve) stenosis Status: Acute Assessment and Plan: Pre lower and post low dependent Continue to monitor Caution with fluids (5) Chronic hyponatremia: Code(s): E87.1 - Hypo-osmolality and hyponatremia Status: Acute Assessment and Plan: Continue to monitor (6) Chronic diastolic (congestive) heart failure: Onset Date: Unknown Code(s): I50.32 - Chronic diastolic (congestive) heart failure Status: Chronic Assessment and Plan: Will obtain echocardiogram in a.m. (7) GERD (gastroesophageal reflux disease): Code(s): K21.9 - Gastro-esophageal reflux disease without esophagitis Status: Acute Assessment and Plan: PPI as needed (8) Morbid obesity with BMI of 40.0-44.9, adult: Code(s): E66.01 - Morbid (severe) obesity due to excess calories; Z68.41 - Body mass index [BMI] 40.0-44.9, adult Status: Acute Assessment and Plan: Calorie restricted diet Additional Plan 04/27/2021 Will continue with BiPAP support, pulmonary consult order. Will also consult social media job titles for jail placement. Subjective Date/time seen: 04/27/21 10:49 Patient was seen during morning rounds today. Patient is using BiPAP and has mild shortness of breath. No chest pain. No abdominal pain, nausea, no vomiting. Mood stable. Review of Systems Review of Systems: All systems reviewed & are unremarkable except as noted in HPI and below (the history and physical examination.) Exam Const: General: comfortable, no acute distress, well developed, alert, awake, acute distress moderate and ill appearing chronically Nutritional Appearance: obese Orientation/consciousness: patient oriented x3 HENMT: Head: normal to inspection, normocephalic and atraumatic Ears: hearing grossly normal bilaterally General nose exam: Normal external nose present Face and sinus: normal facial exam Mouth: Yes Normal oral and palatal mucosa present Eyes: General: appearance normal, both eyes and all related structures Alignment and Position: alignment normal Sclera: sclerae normal Pupils: Equal, round and reactive pupils present EOM: EOMs intact bilaterally Neck: Neck: normal visual inspection, full ROM, no lymphadenopathy, supple and no JVD Thyroid: thyroid normal Lymphatic: no lymphadenopathy noted Resp: Effort & Inspection: normal respiratory effort, able to speak in complete sentences and no cough Auscultation: clear to auscultation bilaterally, no rales, no rhonchi and diminished lung sounds Cardio: Jugular venous distension: no JVD Rate: regular rate Rhythm: regular rhythm Heart sounds: S1 normal heart sound present and S2 normal heart sound present GI: Inspection: normal to inspection and Pannus present : General: Yes deferred Skin: Rashes: no rashes Wounds: no wounds Neuro: General: patient oriented x3 and CN's II-XI intact bilaterally Cranial nerves: Yes CN's II-XII intact bilaterally and Yes Equal, round
[2021-04-27 10:50] LABS: PCO2 ABG 66.3 mmHg (35.0-45.0)
[2021-04-27 10:51] LABS: Device BIPAP; Expiratory Pressure 6 cmH2O; Inspiratory Pressure 12 cmH2O; Modified Allen's Test Pass; Site Drawn RIGHT RADIAL
[2021-04-27] MEDS: DEXTROSE 5%/0.9% SOD CHL 1,000 ML 50 ML IV CONT (11:18)
[2021-04-27] MEDS: hydrALAZINE HCL 20 MG/ML VIAL 10 MG IV PUSH (12:28)
[2021-04-27] MEDS: ENALAPRIL MALEATE 10 MG TABLET PO ×2 (13:06→21:25)
--- NOTE | 2021-04-27 13:11 | ECG_ITS ---
Measurements Intervals Orient Rate: 128 P: 78 AR: 158 QRS: 44 QRSD: 83 T: 57 QT: 297 QTc: 435 Interpretive Statements SINUS TACHYCARDIA BASELINE ARTIFACT- I, II, III, AVR, AVL, AVF, V1-V6 ABNORMAL ECG Electronically Signed On 04-27-2021 16:57:28 [employer]ICATION [employer] by Moiz Melton D.O.
[2021-04-27 13:34] LABS: Alveolar/Arterial O2 Gradient 85.6 mmHg; Base Excess ABG 7.9 mEq/l (+/-2.0); Fractional Inspired Oxygen 45 %; HCO3 ABG 35.5 mEq/l (22.0-26.0); Methemoglobin ABG 0.5 %THb (0-1.5); Oxygen Content ABG 18.4 %vol (16.0-22.0); Oxyhemoglobin 98.1 % THb (90.0-100.0); PO2 ABG 162.2 mmHg (80.0-100.0); Reduced Hemoglobin 1.4 %THb (0-5.0); Total Hemoglobin 13.1 g/dL (12.0-18.0); pH ABG 7.361 (7.350-7.450)
[2021-04-27 13:35] LABS: Device BIPAP; Expiratory Pressure 6 cmH2O; Inspiratory Pressure 12 cmH2O; Modified Allen's Test Pass; PCO2 ABG 64.2 mmHg (35.0-45.0); Site Drawn RIGHT RADIAL
[2021-04-27] MEDS: methylPREDNISolone SOD SUCC 125 MG VIAL IV PUSH (14:19)
[2021-04-27] MEDS: OPTI-GEN TAB 1 TABLET PO (16:53)
[2021-04-27 20:25] LABS: Glucose Point of Care 183 mg/dl (65-105)
[2021-04-27] MEDS: HEPARIN SODIUM 5,000 UNITS/ML VIAL 5000 UNITS SUB-Q (21:25)
[2021-04-27] MEDS: ACETAMINOPHEN 325 MG TABLET 650 MG PO (21:31)
[2021-04-27] MEDS: FLUTICASONE/SALMETEROL 115-21 MCG INHALER 1 PUFF 2 PUFF INHALATION (21:48)
[2021-04-27 22:10] LABS: Add Urine Microscopic? YES; Appearance Urine Clear (Clear); Bilirubin Urine Negative (Negative); Blood Urine Negative (Negative); Color Urine Yellow (Yellow); Glucose Urine UA Negative (Negative); Ketones Urine Trace mg/dL (Negative); Leukocyte Esterase Ur Negative LEU/UL (Negative); Mucus Urine Rare /lpf; Nitrate Urine Negative (Negative); Protein Urine 2+ mg/dL (Negative); Squamous Epithelial Cell Urine Occasional /hpf (Few); Urobilinogen Urine Negative mg/dL (<2.0); WBC Urine 0-3 /hpf
[2021-04-27 22:11] LABS: Specific Grav Ur 1.049 (1.001-1.035)
[2021-04-28] VITALS (28 sets, daily range): BP systolic 152–183; BP diastolic 78–100; PULSE 89–112; RESP 22–33; TEMP 36.3–36.7; O2SAT 95–100; BMI 40.5
[2021-04-28] MEDS: LEVALBUTEROL NEB 1.25 MG/3 ML 0.63 MG INHALATION ×3 (02:00→15:20)
[2021-04-28 06:46] LABS: Alanine Aminotransferase 14 U/L (4-35); Albumin Level 3.8 g/dL (3.5-5.1); Alkaline Phosphatase 73 U/L (38-126); Anion Gap 1 mmol/L (8-16); Aspartate Amino Transferase 25 U/L (14-36); Bilirubin,Total 0.3 mg/dL (0.2-1.3); Blood Urea Nitrogen 19 mg/dL (7-17); Calcium 9.4 mg/dL (8.4-10.2); Carbon Dioxide 37 mmol/L (22-30); Chloride 91 mmol/L (98-107); Estimated CRCL calculation 80 ml/min; Estimated Glomerular Filt Rate > 60; Glucose 147 mg/dL (65-110); Potassium 4.1 mmol/L (3.4-5.0); Sodium 129 mmol/L (137-145)
[2021-04-28] MEDS: FUROSEMIDE 20 MG TABLET PO (08:04)
[2021-04-28] MEDS: OPTI-GEN TAB 1 TABLET PO ×2 (08:04→15:59)
[2021-04-28] MEDS: ENALAPRIL MALEATE 10 MG TABLET PO ×2 (08:04→20:51)
[2021-04-28] MEDS: POTASSIUM CHLORIDE 10 MEQ TABLET.ER PO (08:05)
[2021-04-28] MEDS: LORATADINE/PSEUDOEPHEDRINE (*CRX) 10/240 MG TABLET ER 24 HR 1 TAB PO (08:05)
[2021-04-28] MEDS: ACETAMINOPHEN 325 MG TABLET 650 MG PO ×2 (08:06→22:56)
[2021-04-28] MEDS: CHOLECALCIFEROL 1,000 UNITS TABLET 5000 UNITS PO (08:06)
[2021-04-28] MEDS: predniSONE 20 MG TABLET 40 MG PO (08:08)
[2021-04-28] MEDS: CELECOXIB 100 MG CAPSULE PO (08:08)
[2021-04-28] MEDS: PANTOPRAZOLE 40 MG TABLET PO (08:08)
[2021-04-28] MEDS: CALCIUM CARBONATE (OSCAL) 500 MG TABLET PO (08:09)
[2021-04-28] MEDS: HEPARIN SODIUM 5,000 UNITS/ML VIAL 5000 UNITS SUB-Q ×2 (08:09→20:51)
[2021-04-28] MEDS: FLUTICASONE/SALMETEROL 115-21 MCG INHALER 1 PUFF 2 PUFF INHALATION (08:38)
[2021-04-28] MEDS: ALBUTEROL SULFATE NEB 2.5 MG/0.5 ML INH 5 MG INHALATION ×3 (08:38→21:00)
--- NOTE | 2021-04-28 09:25 | PM.PNPUL ---
Progress Note: A&P Assessment and Plan (1) Acute on chronic respiratory failure with hypoxia and hypercapnia: Code(s): J96.21 - Acute and chronic respiratory failure with hypoxia; J96.22 - Acute and chronic respiratory failure with hypercapnia Status: Acute (2) Decompensated COPD with exacerbation (chronic obstructive pulmonary disease): Code(s): J44.1 - Chronic obstructive pulmonary disease with (acute) exacerbation Status: Acute Assessment and Plan: 80-year-old female with a history of morbid obesity, end-stage COPD with severe emphysema on chest imaging studies, been treated for COPD exacerbation and acute on chronic hypoxemic, hypercapnic respiratory failure, with no evidence of pneumonia or pulmonary embolism on recent chest CT. Patient is essentially BiPAP dependent at this point. Plan is as follows. Continue with current BiPAP settings, attempt to insert feeding tube, switch patient to D5 normal saline because of hyponatremia, discontinue calcium carbonate as this may increase serum bicarbonate, monitor closely respiratory status as patient may need intubation, continue with DVT prophylaxis. Patient was switched to Solu-Medrol 40 mg IV twice daily. (3) Morbid obesity with BMI of 40.0-44.9, adult: Code(s): E66.01 - Morbid (severe) obesity due to excess calories; Z68.41 - Body mass index [BMI] 40.0-44.9, adult Status: Acute (4) CHF (congestive heart failure): Onset Date: Unknown Qualifiers: Heart failure chronicity: unspecified Heart failure type: unspecified Qualified Code(s): I50.9 - Heart failure, unspecified Code(s): I50.9 - Heart failure, unspecified Status: Chronic Subjective Date/time seen: 04/28/21 09:25 patient remains BiPAP dependent. Currently on BiPAP /, 30% FiO2, less shortness of breath compared to yesterday. CTA showed just emphysema no pulmonary embolism. Hyponatremia noted, she is receiving D5 water. Has not had any food for 2 days. Review of Systems Review of Systems: All systems reviewed & are unremarkable except as noted in HPI and below ( H&P and below) Exam Narrative: GENERAL APPEARANCE: Well developed, well nourished, alert and cooperative, and appears to be in moderate respiratory distress while receiving noninvasive ventilatory support via BiPAP. HEENT: Sclerae anicteric and conjunctivae pink and moist. Extraocular movements were intact and pupils were equal, round. NECK: Supple. There was no thyroid enlargement, and no tenderness, or masses were felt. LUNGS: Auscultation of the lungs revealed distant breath sounds no wheezing CARDIAC: There was a regular rate and rhythm without any murmurs, gallops, rubs. ABDOMEN: Soft and nontender with normal bowel sounds. LYMPH NODES: No lymphadenopathy was appreciated in the neck. EXTREMITIES: No cyanosis, clubbing. chronic stasis dermatitis changes in lower extremities. NEUROLOGIC: Alert and oriented x 3. Normal affect. Objective Data Vital Signs Vital Signs: Vital Signs - 24 hr 04/27/21 10:00 04/27/21 11:49 04/27/21 12:00 Temperature 36.8 C Pulse Rate 88 96 103 H Respiratory Rate 19 32 H Blood Pressure 180/135 H Pulse Oximetry 98 97 04/27/21 12:45 04/27/21 13:00 04/27/21 14:00 Temperature Pulse Rate 127 H 110 H Respiratory Rate 28 H 22 H Blood Pressure 168/93 H 143/67 H 125/68 Pulse Oximetry 100 99 04/27/21 14:37 04/27/21 14:44 04/27/21 16:00 Temperature 36.3 C L Pulse Rate 92 929 H 104 H Respiratory Rate 24 H 24 H 22 H Blood Pressure 151/79 H Pulse Oximetry 96 04/27/21 18:00 04/27/21 20:00 04/27/21 21:51 Temperature 36.7 C Pulse Rate 107 H 106 H 105 H Respiratory Rate 19 22 H Blood Pressure 150/92 H Pulse Oximetry 92 04/27/21 22:00 04/27/21 22:01 04/27/21 22:09 Temperature Pulse Rate 106 H 105 H 102 H Respiratory Rate 23 H 24 H Blood Pressure Pulse Oximetry 98 04/27/21 23:46 04/28/21 00:00
--- NOTE | 2021-04-28 11:17 | PM.IMPN ---
Progress Note: A&P Assessment and Plan (1) Acute on chronic respiratory failure with hypoxia and hypercapnia: Code(s): J96.21 - Acute and chronic respiratory failure with hypoxia; J96.22 - Acute and chronic respiratory failure with hypercapnia Status: Acute Assessment and Plan: Patient is currently on BiPAP Try and keep oxygen saturation between 90-94% Supportive care (2) Decompensated COPD with exacerbation (chronic obstructive pulmonary disease): Code(s): J44.1 - Chronic obstructive pulmonary disease with (acute) exacerbation Status: Acute Assessment and Plan: Breathing treatments Systemic steroids Non productive cough No sputum production or change in sputum quality (3) Obstructive sleep apnea: Code(s): G47.33 - Obstructive sleep apnea (adult) (pediatric) Status: Acute Assessment and Plan: Patient not currently using CPAP at nighttime (4) Aortic stenosis: Code(s): I35.0 - Nonrheumatic aortic (valve) stenosis Status: Acute Assessment and Plan: Pre lower and post low dependent Continue to monitor Caution with fluids (5) Chronic hyponatremia: Code(s): E87.1 - Hypo-osmolality and hyponatremia Status: Acute Assessment and Plan: Continue to monitor (6) Chronic diastolic (congestive) heart failure: Onset Date: Unknown Code(s): I50.32 - Chronic diastolic (congestive) heart failure Status: Chronic Assessment and Plan: Will obtain echocardiogram in a.m. (7) GERD (gastroesophageal reflux disease): Code(s): K21.9 - Gastro-esophageal reflux disease without esophagitis Status: Acute Assessment and Plan: PPI as needed (8) Morbid obesity with BMI of 40.0-44.9, adult: Code(s): E66.01 - Morbid (severe) obesity due to excess calories; Z68.41 - Body mass index [BMI] 40.0-44.9, adult Status: Acute Assessment and Plan: Calorie restricted diet Additional Plan 04/27/2021 Will continue with BiPAP support, pulmonary consult order. Will also consult aids social worker for [place] [facility] placement. 04/20/2021 Will continue BiPAP support . Patient's sodium is low will consult Nephrology . Physical therapy to see patient . Monitor labs in the morning. Subjective Date/time seen: 04/28/21 11:17 Patient was seen during the morning rounds today. Mild shortness of breath no chest pain. No abdominal pain, nausea, no vomiting. Mood stable Review of Systems Review of Systems: All systems reviewed & are unremarkable except as noted in HPI and below (the history and physical examination.) ROS unobtainable: Yes unobtainable due to medical condition (On BiPAP) Exam Const: General: comfortable, no acute distress, well developed, alert, awake, acute distress moderate and ill appearing chronically Nutritional Appearance: obese Orientation/consciousness: patient oriented x3 HENMT: Head: normal to inspection, normocephalic and atraumatic Ears: hearing grossly normal bilaterally General nose exam: Normal external nose present Face and sinus: normal facial exam Mouth: Yes Normal oral and palatal mucosa present Eyes: General: appearance normal, both eyes and all related structures Alignment and Position: alignment normal Sclera: sclerae normal Pupils: Equal, round and reactive pupils present EOM: EOMs intact bilaterally Neck: Neck: normal visual inspection, full ROM, no lymphadenopathy, supple and no JVD Thyroid: thyroid normal Lymphatic: no lymphadenopathy noted Resp: Effort & Inspection: normal respiratory effort, able to speak in complete sentences and no cough Auscultation: clear to auscultation bilaterally, no rales, no rhonchi and diminished lung sounds Cardio: Jugular venous distension: no JVD Rate: regular rate Rhythm: regular rhythm Heart sounds: S1 normal heart sound present and S2 normal heart sound present GI: Inspection: normal to inspection and Pannus present : General: Yes
--- NOTE | 2021-04-28 14:24 | PCPTNOTE ---
Spoke with the nurse regarding this patient. Patient is not currently stable to participate in physical therapy. The nurse and I spoke with Dr. Love about holding at this time to which he agreed. We will recheck tomorrow.
[2021-04-28] MEDS: DEXTROSE 5%/0.9% SOD CHL 1,000 ML 50 ML IV CONT (15:47)
[2021-04-28] MEDS: methylPREDNISolone SOD SUCC 40 MG VIAL IV PUSH (15:59)
[2021-04-28 16:49] LABS: Alveolar/Arterial O2 Gradient 149.1 mmHg; Base Excess ABG 11.3 mEq/l (+/-2.0); Carboxyhemoglobin 0.3 % THb (0-2.0); Fractional Inspired Oxygen 60 %; HCO3 ABG 38.1 mEq/l (22.0-26.0); Methemoglobin ABG 0.4 %THb (0-1.5); Oxygen Content ABG 16.6 %vol (16.0-22.0); Oxygen Saturation ABG 99.4 % (95.0-100.0); PO2 ABG 210.6 mmHg (80.0-100.0); PO2 FiO2 Ratio Arterial Blood 3.51 %; Reduced Hemoglobin 1.3 %THb (0-5.0); Total Hemoglobin 11.7 g/dL (12.0-18.0); pH ABG 7.407 (7.350-7.450)
[2021-04-28 16:50] LABS: PCO2 ABG 61.9 mmHg (35.0-45.0)
[2021-04-28 16:51] LABS: Device BIPAP; Inspiratory Pressure 16 cmH2O; Modified Allen's Test Pass; Site Drawn LEFT RADIAL
[2021-04-28 16:52] LABS: Expiratory Pressure 4 cmH2O
--- NOTE | 2021-04-28 21:01 | PCRTNOTE ---
MDI NOT GIVEN, PT. CONT. BIPAP
[2021-04-28 21:07] LABS: Glucose Point of Care 186 mg/dl (65-105)
[2021-04-29] VITALS (24 sets, daily range): BP systolic 126–174; BP diastolic 71–101; PULSE 94–112; RESP 18–29; TEMP 36.2–37; O2SAT 94–100
[2021-04-29] MEDS: ALBUTEROL SULFATE NEB 2.5 MG/0.5 ML INH 5 MG INHALATION (03:29)
[2021-04-29 05:16] LABS: Basophils Percent Auto 0.1 % (0.2-1.2); Hematocrit 34.1 % (37.0-47.0); Hemoglobin 10.6 g/dL (12.0-15.0); Immature Granulocyte Absolute 0.03 K/mm3 (0.00-0.031); Immature Granulocyte Percent A 0.3 % (0-0.5); Lymphocytes Absolute Auto 0.58 K/mm3 (0.9-3.2); Lymphocytes Percent Auto 6.2 % (18.3-44.2); Mean Corpuscular HGB Conc 31.1 g/dl (32-36); Mean Corpuscular Hemoglobin 27.5 pg (26-34); Mean Corpuscular Volume 88.3 fl (80-100); Mean Platelet Volume 9.5 fl (7.4-10.4); Monocytes Absolute Auto 1.2 K/mm3 (0.1-0.6); Neutrophils Absolute Auto 7.5 K/mm3 (1.3-6.7); Neutrophils Percent Auto 80.4 % (45.5-73.1); Platelet Count Result 254 k/mm3 (150-375); Red Blood Count 3.86 M/mm3 (4.2-5.4); White Blood Count 9.4 K/mm3 (4.5-10.0)
[2021-04-29 05:26] LABS: Alanine Aminotransferase 17 U/L (4-35); Alkaline Phosphatase 69 U/L (38-126); Anion Gap 3 mmol/L (8-16); Aspartate Amino Transferase 37 U/L (14-36); Bilirubin,Total 0.4 mg/dL (0.2-1.3); Blood Urea Nitrogen 23 mg/dL (7-17); Calcium 9.4 mg/dL (8.4-10.2); Carbon Dioxide 35 mmol/L (22-30); Chloride 91 mmol/L (98-107); Estimated CRCL calculation 81 ml/min; Estimated Glomerular Filt Rate > 60; Glucose 128 mg/dL (65-110); Potassium 4.1 mmol/L (3.4-5.0); Sodium 129 mmol/L (137-145)
--- NOTE | 2021-04-29 07:54 | PCPTNOTE ---
spoke with nurse at 7:45AM about seeing this patient, no significant change in status and continues to heavily rely on bipap; check back later
[2021-04-29] MEDS: LEVALBUTEROL NEB 1.25 MG/3 ML 0.63 MG INHALATION (08:45)
[2021-04-29] MEDS: FLUTICASONE/SALMETEROL 115-21 MCG INHALER 1 PUFF 2 PUFF INHALATION (08:49)
[2021-04-29] MEDS: HEPARIN SODIUM 5,000 UNITS/ML VIAL 5000 UNITS SUB-Q ×2 (09:06→20:43)
[2021-04-29] MEDS: FUROSEMIDE 20 MG TABLET PO (09:08)
[2021-04-29] MEDS: methylPREDNISolone SOD SUCC 40 MG VIAL IV PUSH ×2 (09:09→15:58)
[2021-04-29] MEDS: ENALAPRIL MALEATE 10 MG TABLET PO ×2 (09:09→20:44)
[2021-04-29] MEDS: PANTOPRAZOLE 40 MG TABLET PO (09:09)
[2021-04-29] MEDS: CELECOXIB 100 MG CAPSULE PO (09:10)
[2021-04-29] MEDS: CHOLECALCIFEROL 1,000 UNITS TABLET 5000 UNITS PO (09:10)
[2021-04-29] MEDS: POTASSIUM CHLORIDE 10 MEQ TABLET.ER PO (09:11)
[2021-04-29] MEDS: OPTI-GEN TAB 1 TABLET PO ×2 (09:11→15:58)
[2021-04-29] MEDS: LORATADINE/PSEUDOEPHEDRINE (*CRX) 10/240 MG TABLET ER 24 HR 1 TAB PO (09:25)
--- NOTE | 2021-04-29 11:16 | PM.CNNEP ---
Assessment and Plan Assessment and plan (1) Chronic hyponatremia: Code(s): E87.1 - Hypo-osmolality and hyponatremia Status: Acute Assessment and Plan: The patient has chronic hyponatremia. Her sodium level runs between 129 and 134. She is not on any medications that would cause this except possibly diuretics but she does not always take these. She has had a TSH which is normal. She has had no cortisol nor SPEP. She has no history of cancer. CT of the head was negative in the past. She does have COPD which is probably the cause for her chronic hyponatremia. Will check a cortisol level and also an SPEP. Will check serum and urine osmolality to complete the workup. She does not drink much fluid. Will stop her IV fluids. Will give salt tablets to go with her diuretics. (2) Acute hypercapnic respiratory failure: Code(s): J96.02 - Acute respiratory failure with hypercapnia Status: Acute Assessment and Plan: She is getting supportive care with BiPAP, inhalers, medics. (3) GERD (gastroesophageal reflux disease): Code(s): K21.9 - Gastro-esophageal reflux disease without esophagitis Status: Acute Assessment and Plan: She is on a PPI (4) COPD with emphysema: Code(s): J43.9 - Emphysema, unspecified Status: Acute Assessment and Plan: She is getting supportive (5) Obstructive sleep apnea: Code(s): G47.33 - Obstructive sleep apnea (adult) (pediatric) Status: Acute Assessment and Plan: She gets a CPAP machine while here but does not use at home. (6) Diastolic dysfunction: Code(s): I51.89 - Other ill-defined heart diseases Status: Acute Assessment and Plan: She is on diuretics History of Present Illness Reason for Consult Consult date: 04/29/21 Chief Complaint Chief complaint: Hypercapnic Respiratory Failure, COPD History of Present Illness Narrative: Sena is a very pleasant 80-year-old lady who has multiple medical problems including chronic hyponatremia with baseline sodium between 130 and 134, arthritis, vitamin-D deficiency, pre diabetes, sleep apnea but does not use a CPAP machine, diastolic CHF, chronic pain, venous stasis dermatitis below the knees on both sides, ulcerative colitis, COPD, hypertension, GERD, thyroid nodule, ulcerative colitis. Patient came in the hospital because of shortness of breath. She was evaluated in the emergency room. Oxygenation was low so she was given supplemental oxygen. CT for pulmonary embolism was negative. She was given supportive care for her COPD She was placed on a BiPAP and admitted. The patient is getting some furosemide. She has chronic venous stasis dermatitis. She has been swollen for years. She actually blames the skin condition on the diuretics, not the edema and so often does not take her diuretics at home. Review of Systems Constitutional: Constitutional: Reports no additional constitutional complaints Eyes: Eyes: Reports no additional eye complaints ENT: Reports system reviewed and no additional complaints, except as documented Cardiovascular: Cardiovascular: Reports no additional cardiovascular complaints Respiratory: Respiratory: Reports no additional respiratory complaints Gastrointestinal: Gastrointestinal: Reports no additional gastrointestinal complaints Genitourinary: Genitourinary: Reports no additional female genitourinary complaints Musculoskeletal: Musculoskeletal: Reports no additional musculoskeletal complaints Integumentary/Breasts: Skin/Breast: Reports system reviewed and no additional complaints, except as docu Neurologic: Reports system reviewed and no additional complaints, except as documented Psychiatric: Psychiatric: Reports no additional psychiatric complaints Endocrine: Endocrine: Reports no additional endocrine complaints [facility] Past Medical History Medical History (Updated 04/29/21 @ 11:32 by Adrian Barahona,
--- NOTE | 2021-04-29 11:36 | PCPTNOTE ---
attempted again to see this patient for physical therapy evaluation. She was just placed back on Bipap from [place] 3-4 liters. O2
[2021-04-29] MEDS: oxyCODONE/ACETAMINOPHEN (*CRX) 5-325 MG TABLET 1 TABLET PO ×2 (11:42→15:58)
[2021-04-29] MEDS: oxyCODONE HCL (*CRX) 5 MG TAB IR PO ×3 (11:43→20:50)
--- NOTE | 2021-04-29 11:59 | PM.IMPN ---
Progress Note: A&P Assessment and Plan (1) Acute on chronic respiratory failure with hypoxia and hypercapnia: Code(s): J96.21 - Acute and chronic respiratory failure with hypoxia; J96.22 - Acute and chronic respiratory failure with hypercapnia Status: Acute Assessment and Plan: Patient is currently on BiPAP Try and keep oxygen saturation between 90-94% Supportive care (2) Decompensated COPD with exacerbation (chronic obstructive pulmonary disease): Code(s): J44.1 - Chronic obstructive pulmonary disease with (acute) exacerbation Status: Acute Assessment and Plan: Breathing treatments Systemic steroids Non productive cough No sputum production or change in sputum quality (3) Obstructive sleep apnea: Code(s): G47.33 - Obstructive sleep apnea (adult) (pediatric) Status: Acute Assessment and Plan: Patient not currently using CPAP at nighttime (4) Aortic stenosis: Code(s): I35.0 - Nonrheumatic aortic (valve) stenosis Status: Acute Assessment and Plan: Pre lower and post low dependent Continue to monitor Caution with fluids (5) Chronic hyponatremia: Code(s): E87.1 - Hypo-osmolality and hyponatremia Status: Acute Assessment and Plan: Continue to monitor (6) Chronic diastolic (congestive) heart failure: Onset Date: Unknown Code(s): I50.32 - Chronic diastolic (congestive) heart failure Status: Chronic Assessment and Plan: Will obtain echocardiogram in a.m. (7) GERD (gastroesophageal reflux disease): Code(s): K21.9 - Gastro-esophageal reflux disease without esophagitis Status: Acute Assessment and Plan: PPI as needed (8) Morbid obesity with BMI of 40.0-44.9, adult: Code(s): E66.01 - Morbid (severe) obesity due to excess calories; Z68.41 - Body mass index [BMI] 40.0-44.9, adult Status: Acute Assessment and Plan: Calorie restricted diet Additional Plan 04/27/2021 Will continue with BiPAP support, pulmonary consult order. Will also consult administrator social welfare for [facility] placement. 04/28/2021 Will continue BiPAP support . Patient's sodium is low will consult Nephrology . Physical therapy to see patient . Monitor labs in the morning. 04/29/2021 Nephrology consult noted, patient was started on now sodium tablets to increase the sodium. Patient is feeling slightly better today, will continue with BiPAP and monitor CO2. Possible discharge in next couple of days. Start physical therapy Subjective Date/time seen: 04/29/21 11:59 Patient is seen during the rounds today. Feeling slightly better. Decreased shortness breath. No chest pain. No abdominal pain, nausea vomiting, mood stable. Review of Systems Review of Systems: All systems reviewed & are unremarkable except as noted in HPI and below (the history and physical examination.) ROS unobtainable: Yes unobtainable due to medical condition (On BiPAP) Exam Const: General: comfortable, no acute distress, well developed, alert, awake, acute distress moderate and ill appearing chronically Nutritional Appearance: obese Orientation/consciousness: patient oriented x3 HENMT: Head: normal to inspection, normocephalic and atraumatic Ears: hearing grossly normal bilaterally General nose exam: Normal external nose present Face and sinus: normal facial exam Mouth: Yes Normal oral and palatal mucosa present Eyes: General: appearance normal, both eyes and all related structures Alignment and Position: alignment normal Sclera: sclerae normal Pupils: Equal, round and reactive pupils present EOM: EOMs intact bilaterally Neck: Neck: normal visual inspection, full ROM, no lymphadenopathy, supple and no JVD Thyroid: thyroid normal Lymphatic: no lymphadenopathy noted Resp: Effort & Inspection: normal respiratory effort, able to speak in complete sentences and no cough Auscultation: clear to auscultation bilaterally, no rales, no rhon
[2021-04-29] MEDS: UMECLIDINIUM BROMIDE 62.5 MCG ELLIPTA 1 PUFF INHALATION (12:31)
[2021-04-29] MEDS: ALBUTEROL SULFATE NEB 2.5 MG/0.5 ML INH INHALATION ×2 (13:57→21:18)
[2021-04-29] MEDS: SODIUM CHLORIDE 1 GM TABLET PO (14:24)
--- NOTE | 2021-04-29 17:01 | PM.PNPUL ---
Progress Note: A&P Assessment and Plan (1) Acute exacerbation of chronic obstructive airways disease: Code(s): J44.1 - Chronic obstructive pulmonary disease with (acute) exacerbation Status: Acute Assessment and Plan: Patient with acute exacerbation of COPD and has improved on IV Solu-Medrol, albuterol nebulizers and inhaled long-acting muscarinic antagonist. There is no evidence of PE on her CT angiogram on 04/27/2021. There is no evidence of pneumonia on her CT scan. she is afebrile with a normal white blood cell count. Rapid COVID antigen test is negative. There are no wheezes on exam today and I will continue this regimen. I will consider changing to p.o. prednisone on 04/30/2021. (2) Acute on chronic respiratory failure with hypoxia and hypercapnia: Code(s): J96.21 - Acute and chronic respiratory failure with hypoxia; J96.22 - Acute and chronic respiratory failure with hypercapnia Status: Acute Assessment and Plan: Patient presented with a blood gas of 7.41/64/77 on 4 L nasal cannula. Patient has COPD with acute on chronic hypercarbic and hypoxemic respiratory failure. Patient would benefit from noninvasive ventilation To prevent subsequent deterioration and further hospitalizations. Patient did not tolerate BiPAP because the pressures were too high. I switched to noninvasive ventilation with an AVAPS mode with a rate of 14, tidal volume 500, EPAP 5, minimal inspiratory pressure 6, maximal inspiratory pressure 30, inspiratory time 1.0, rise 1, 30% FiO2 and she said that this was more comfortable and she may be able to sleep with this tonight. I will order an overnight oximetry to assess her oxygenation and a blood gas prior to removal of the noninvasive ventilator to assess her ventilation. Will follow with you. Subjective Date/time seen: 04/29/21 17:01 Interval history: 04/28/21 09:25 patient remains BiPAP dependent. Currently on BiPAP 16/4, 30% FiO2, less shortness of breath compared to yesterday. CTA showed just emphysema no pulmonary embolism. Hyponatremia noted, she is receiving D5 water. Has not had any food for 2 days. 04/29 Overall the patient tells me that she is breathing better and feels better than when she was admitted. Patient wore BiPAP last night. Currently she is on 5 L nasal cannula with saturations 98%. Patient tells me at home she wears 2 L nasal cannula 247. Patient has no wheezes on Solu-Medrol, albuterol nebs and incruse ellipta. patient states that the BiPAP was very uncomfortable and she could not sleep with it last night or the night before. I switched to noninvasive ventilation with an AVAPS mode with a rate of 14, tidal volume 500, EPAP 5, minimal inspiratory pressure 6, maximal inspiratory pressure 30, inspiratory time 1.0, rise 1, 30% FiO2 and she said that this was more comfortable and she may be able to sleep with this tonight. DATA EXAMINATION: CTA chest PE protocol DATE: 04/27/2021 16:12 INDICATION: Respiratory distress. Possible pulmonary embolism. TECHNIQUE: Computed tomography angiography (CTA) of the chest was performed with 100 mL Omnipaque-350 intravenous contrast timed to evaluate the pulmonary arteries. Coronal maximum intensity projection 3D-reconstructions were created by the technologist. Automated exposure control and iterative reconstruction technique were employed. Exam dose: 967.16 mGy-cm total exam DLP. COMPARISON: 11/11/2019 CTA chest 04/27/2021 portable AP chest FINDINGS: There is diagnostic contrast enhancement of the pulmonary arteries and no evidence of pulmonary embolism. There is aortic atherosclerosis. No thoracic aortic aneurysm. Heart size is normal. No pericardial effusion or pleural effusion. No hilar or mediastinal mass lesion or lymphadenopathy. Previously reported right thyroid mass. Thyroid ultrasound would be helpful for more definitive evaluation. Emphysematous changes of the lungs. No pulmonary in
[2021-04-29] MEDS: HYDROcodone/acetaminophen (*CRX) 5-325 MG TABLET 1 TAB PO (20:51)
[2021-04-29 20:54] LABS: Glucose Point of Care 189 mg/dl (65-105)
[2021-04-30] VITALS (17 sets, daily range): BP systolic 148–159; BP diastolic 77–99; PULSE 78–102; RESP 16–25; TEMP 36.5–36.9; O2SAT 93–100
--- NOTE | 2021-04-30 02:13 | PC.NURSE ---
patient removed bipap at 0200 am. she stated that it is hurting her and she wants it off. 3 l nc placed on patient and respiratory called.
[2021-04-30 05:38] LABS: Anion Gap 4 mmol/L (8-16); Blood Urea Nitrogen 26 mg/dL (7-17); Calcium 9.4 mg/dL (8.4-10.2); Carbon Dioxide 39 mmol/L (22-30); Chloride 90 mmol/L (98-107); Estimated CRCL calculation 53 ml/min; Estimated Glomerular Filt Rate > 60; Glucose 121 mg/dL (65-110); Potassium 4.4 mmol/L (3.4-5.0); Sodium 133 mmol/L (137-145)
--- NOTE | 2021-04-30 06:04 | PC.NURSE ---
NURSE ATTEMPTED TO TALK PATIENT BACK INTO WEARING THE BIPAP. PATIENT REFUSED AND HER CANULA WAS PLACED BACK ON. RESPIRATORY WENT IN THIS MORNING AND TOOK IT OFF AND PATIENT WAS SAYING THAT IT WAS OUR FAULT THAT SHE WOULD NOT WEAR IT/PER RESPIRATORY CALEB.
[2021-04-30 08:16] LABS: Glucose Point of Care 89 mg/dl (65-105)
[2021-04-30] MEDS: ALBUTEROL SULFATE NEB 2.5 MG/0.5 ML INH INHALATION ×2 (08:41→21:00)
--- NOTE | 2021-04-30 08:58 | PM.IMPN ---
Progress Note: A&P Assessment and Plan (1) Acute on chronic respiratory failure with hypoxia and hypercapnia: Code(s): J96.21 - Acute and chronic respiratory failure with hypoxia; J96.22 - Acute and chronic respiratory failure with hypercapnia Status: Acute Assessment and Plan: Patient is currently using BiPAP on p.r.n. basis Try and keep oxygen saturation between 90-94% Supportive care (2) Decompensated COPD with exacerbation (chronic obstructive pulmonary disease): Code(s): J44.1 - Chronic obstructive pulmonary disease with (acute) exacerbation Status: Acute Assessment and Plan: Breathing treatments Systemic steroids Non productive cough No sputum production or change in sputum quality (3) Obstructive sleep apnea: Code(s): G47.33 - Obstructive sleep apnea (adult) (pediatric) Status: Acute Assessment and Plan: Patient not currently using CPAP at nighttime (4) Aortic stenosis: Code(s): I35.0 - Nonrheumatic aortic (valve) stenosis Status: Acute Assessment and Plan: Pre lower and post low dependent Continue to monitor Caution with fluids (5) Chronic hyponatremia: Code(s): E87.1 - Hypo-osmolality and hyponatremia Status: Acute Assessment and Plan: Continue to monitor (6) Chronic diastolic (congestive) heart failure: Onset Date: Unknown Code(s): I50.32 - Chronic diastolic (congestive) heart failure Status: Chronic Assessment and Plan: Will obtain echocardiogram in a.m. (7) GERD (gastroesophageal reflux disease): Code(s): K21.9 - Gastro-esophageal reflux disease without esophagitis Status: Acute Assessment and Plan: PPI as needed (8) Morbid obesity with BMI of 40.0-44.9, adult: Code(s): E66.01 - Morbid (severe) obesity due to excess calories; Z68.41 - Body mass index [BMI] 40.0-44.9, adult Status: Acute Assessment and Plan: Calorie restricted diet Additional Plan 04/27/2021 Will continue with BiPAP support, pulmonary consult order. Will also consult social psychologist for residential placement. 04/28/2021 Will continue BiPAP support . Patient's sodium is low will consult Nephrology . Physical therapy to see patient . Monitor labs in the morning. 04/29/2021 Nephrology consult noted, patient was started on now sodium tablets to increase the sodium. Patient is feeling slightly better today, will continue with BiPAP and monitor CO2. Possible discharge in next couple of days. Start physical therapy 04/30/2021 Patient is improving gradually. Plan is to continue BiPAP was and increase activity as tolerated. Possible discharge tomorrow. Subjective Date/time seen: 04/30/21 08:58 Patient was seen during the morning rounds today. Patient is still using BiPAP intermittently but use has decreased. Patient is getting oxygen via nasal cannula. Mild shortness of breath, no chest pain. No abdominal pain, nausea, no vomiting. Mood stable. Review of Systems Review of Systems: All systems reviewed & are unremarkable except as noted in HPI and below (the history and physical examination.) ROS unobtainable: Yes unobtainable due to medical condition (On BiPAP) Exam Narrative: Patient is laying in gurney Const: General: comfortable, no acute distress, well developed, alert, awake, acute distress moderate and ill appearing chronically Nutritional Appearance: obese Orientation/consciousness: patient oriented x3 HENMT: Head: normal to inspection, normocephalic and atraumatic Ears: hearing grossly normal bilaterally General nose exam: Normal external nose present Face and sinus: normal facial exam Mouth: Yes Normal oral and palatal mucosa present Eyes: General: appearance normal, both eyes and all related structures Alignment and Position: alignment normal Sclera: sclerae normal Pupils: Equal, round and reactive pupils present EOM: EOMs intact bilaterally Neck: Neck: normal
[2021-04-30] MEDS: PANTOPRAZOLE 40 MG TABLET PO (09:22)
[2021-04-30] MEDS: POTASSIUM CHLORIDE 10 MEQ TABLET.ER PO (09:22)
[2021-04-30] MEDS: CHOLECALCIFEROL 1,000 UNITS TABLET 5000 UNITS PO (09:22)
[2021-04-30] MEDS: HEPARIN SODIUM 5,000 UNITS/ML VIAL 5000 UNITS SUB-Q ×2 (09:22→21:58)
[2021-04-30] MEDS: FUROSEMIDE 20 MG TABLET PO (09:22)
[2021-04-30] MEDS: CELECOXIB 100 MG CAPSULE PO (09:22)
[2021-04-30] MEDS: ENALAPRIL MALEATE 10 MG TABLET PO (09:22)
[2021-04-30] MEDS: OPTI-GEN TAB 1 TABLET PO ×2 (09:22→17:05)
[2021-04-30] MEDS: LORATADINE/PSEUDOEPHEDRINE (*CRX) 10/240 MG TABLET ER 24 HR 1 TAB PO (09:22)
[2021-04-30] MEDS: SODIUM CHLORIDE 1 GM TABLET PO (09:22)
[2021-04-30] MEDS: methylPREDNISolone SOD SUCC 40 MG VIAL IV PUSH (09:22)
--- NOTE | 2021-04-30 10:30 | PM.PNNEP ---
Progress Note: A&P Assessment and Plan (1) Chronic hyponatremia: Code(s): E87.1 - Hypo-osmolality and hyponatremia Status: Acute Assessment and Plan: The patient has chronic hyponatremia. Her sodium level runs between 129 and 134. TSH is normal. Cortisol level is low but she is on Solu-Medrol. SPEP is pending Osmolalities are pending No history of cancer. It is unlikely that years of hyponatremia would be present without an obvious cancer present if this were the cause. Patient has COPD. This is the most likely cause of the chronic hyponatremia (2) Acute hypercapnic respiratory failure: Code(s): J96.02 - Acute respiratory failure with hypercapnia Status: Acute Assessment and Plan: She is getting supportive care with BiPAP, inhalers, medics. (3) GERD (gastroesophageal reflux disease): Code(s): K21.9 - Gastro-esophageal reflux disease without esophagitis Status: Acute Assessment and Plan: She is on a PPI (4) COPD with emphysema: Code(s): J43.9 - Emphysema, unspecified Status: Acute Assessment and Plan: She is getting supportive care (5) Obstructive sleep apnea: Code(s): G47.33 - Obstructive sleep apnea (adult) (pediatric) Status: Acute Assessment and Plan: She gets a CPAP machine while here but does not use at home. She does not like the BiPAP and it mask. (6) Diastolic dysfunction: Code(s): I51.89 - Other ill-defined heart diseases Status: Acute Assessment and Plan: She is on diuretics Subjective Date/time seen: 04/30/21 10:30 Interval history: Patient is on a BiPAP mask. She does not like the mask She is breathing okay while on the BiPAP. Review of Systems Cardiovascular: Cardiovascular: Reports no additional cardiovascular complaints Respiratory: Respiratory: Reports no additional respiratory complaints Gastrointestinal: Gastrointestinal: Reports no additional gastrointestinal complaints Genitourinary: Genitourinary: Reports no additional female genitourinary complaints Exam Narrative: WDWN in NAD skin no rash or subcu not head ncat lungs decreased breath sounds at the bases cor reg no rub or gallop abd BS+ nontender and soft ext no edema. Objective Data Vital Signs Vital Signs: Vital Signs - 24 hr 04/29/21 12:00 04/29/21 12:52 04/29/21 13:57 Temperature 36.9 C Pulse Rate 103 H 102 H 101 H Respiratory Rate 27 H 26 H 24 H Blood Pressure 151/98 H Pulse Oximetry 100 98 04/29/21 14:00 04/29/21 15:40 04/29/21 16:00 Temperature 36.2 C L Pulse Rate 105 H 94 102 H Respiratory Rate 18 Blood Pressure 149/75 H Pulse Oximetry 98 97 04/29/21 18:00 04/29/21 20:00 04/29/21 21:19 Temperature 36.7 C Pulse Rate 100 101 H 97 Respiratory Rate 22 H 22 H Blood Pressure 174/82 H Pulse Oximetry 97 04/29/21 21:30 04/29/21 22:00 04/29/21 23:23 Temperature 36.7 C Pulse Rate 99 103 H 100 Respiratory Rate 22 H 22 H Blood Pressure 150/71 H Pulse Oximetry 97 04/29/21 23:24 04/29/21 23:26 04/30/21 00:00 Temperature Pulse Rate 98 98 96 Respiratory Rate 24 H 24 H 24 H Blood Pressure Pulse Oximetry 97 96 96 04/30/21 02:00 04/30/21 04:00 04/30/21 06:00 Temperature 36.6 C Pulse Rate 99 102 H 95 Respiratory Rate 20 Blood Pressure 148/77 H Pulse Oximetry 96 04/30/21 08:00 04/30/21 08:42 04/30/21 08:48 Temperature 36.8 C Pulse Rate 96 92 90 Respiratory Rate 22 H 20 22 H Blood Pressure 159/99 H Pulse Oximetry 96 98 Intake/Output Intake/Output: Intake & Output 04/27/21 04/28/21 04/29/21 04/30/21 23:59 23:59 23:59 23:59 Intake Total 1220 700 Output Total 500 1300 975 300 Balance -500 -80 -275 -300 Meds/Results Medications: Active Medications Generic Name Dose Route Start Last Admin Trade Name Raymond PRN Reason Stop Dose Admin Acetaminophen 650 mg 04/27/21 01:25 04/28/21 22:56 Acetamino
[2021-04-30 12:58] LABS: Glucose Point of Care 93 mg/dl (65-105)
--- NOTE | 2021-04-30 13:53 | PM.PNPUL ---
Progress Note: A&P Assessment and Plan (1) Acute exacerbation of chronic obstructive airways disease: Code(s): J44.1 - Chronic obstructive pulmonary disease with (acute) exacerbation Status: Acute Assessment and Plan: 04/29 Patient with acute exacerbation of COPD and has improved on IV Solu-Medrol, albuterol nebulizers and inhaled long-acting muscarinic antagonist. There is no evidence of PE on her CT angiogram on 04/27/2021. There is no evidence of pneumonia on her CT scan. she is afebrile with a normal white blood cell count. Rapid COVID antigen test is negative. There are no wheezes on exam today and I will continue this regimen. I will consider changing to p.o. prednisone on 04/30/2021. 04/30 Patient had no wheezes on exam this morning and I will decrease her Solu-Medrol to 20 mg IV Q 12 hours, I will change her increased ellipta to nebulized ipratropium as she feels nebulization gives her better medicine delivery and I will increase the nebulizer frequency to q.4 hours. (2) Acute on chronic respiratory failure with hypoxia and hypercapnia: Code(s): J96.21 - Acute and chronic respiratory failure with hypoxia; J96.22 - Acute and chronic respiratory failure with hypercapnia Status: Acute Assessment and Plan: 04/29 Patient presented with a blood gas of 7.41/64/77 on 4 L nasal cannula. Patient has COPD with acute on chronic hypercarbic and hypoxemic respiratory failure. Patient would benefit from noninvasive ventilation To prevent subsequent deterioration and further hospitalizations. Patient did not tolerate BiPAP because the pressures were too high. I switched to noninvasive ventilation with an AVAPS mode with a rate of 14, tidal volume 500, EPAP 5, minimal inspiratory pressure 6, maximal inspiratory pressure 30, inspiratory time 1.0, rise 1, 30% FiO2 and she said that this was more comfortable and she may be able to sleep with this tonight. I will order an overnight oximetry to assess her oxygenation and a blood gas prior to removal of the noninvasive ventilator to assess her ventilation. She only wore the mask for 3 hours and the overnight oximetry was good. 04/30 I will continue the above-mentioned noninvasive ventilation with AVAPS mode and check a blood gas in the morning prior to removal. Will follow with you. Subjective Date/time seen: 04/30/21 13:53 Interval history: 04/28/21 09:25 patient remains BiPAP dependent. Currently on BiPAP 16/, 30% FiO2, less shortness of breath compared to yesterday. CTA showed just emphysema no pulmonary embolism. Hyponatremia noted, she is receiving D5 water. Has not had any food for 2 days. 04/29 Overall the patient tells me that she is breathing better and feels better than when she was admitted. Patient wore BiPAP last night. Currently she is on 5 L nasal cannula with saturations 98%. Patient tells me at home she wears 2 L nasal cannula 247. Patient has no wheezes on Solu-Medrol, albuterol nebs and incruse ellipta. patient states that the BiPAP was very uncomfortable and she could not sleep with it last night or the night before. I switched to noninvasive ventilation with an AVAPS mode with a rate of 14, tidal volume 500, EPAP 5, minimal inspiratory pressure 6, maximal inspiratory pressure 30, inspiratory time 1.0, rise 1, 30% FiO2 and she said that this was more comfortable and she may be able to sleep with this tonight. 04/30 patient wore AVAPS mode with a rate of 14, tidal volume 500, EPAP 5, minimal inspiratory pressure 6, maximal inspiratory pressure 30, inspiratory time 1.0, rise 1, 30% FiO2 And she says she tolerated this well until about 115 in the morning. At that point her she took it off but does not remember this. Patient had an overnight oximetry and up until 115 in the morning her average saturations were 98% and her time with saturation less than or equal to 88% was 1 minutes. This morning patient said she wa
--- NOTE | 2021-04-30 14:06 | PCOTNOTE ---
Attempted to evaluate pt. for Occupational Therapy. Pt. could not answer questions as she repeatedly fell asleep.
--- NOTE | 2021-04-30 14:39 | PCRCNOTE ---
Order for Trilogy faxed to patient's [facility], [facility].
[2021-04-30] MEDS: methylPREDNISolone SOD SUCC 40 MG VIAL 20 MG IV PUSH (17:04)
[2021-04-30 17:16] LABS: Glucose Point of Care 226 mg/dl (65-105)
[2021-04-30] MEDS: HYDROcodone/acetaminophen (*CRX) 5-325 MG TABLET 1 TAB PO (17:22)
[2021-04-30] MEDS: IPRATROPIUM BR 0.02% INH SOLN 0.5 MG/2.5 ML VIAL INHALATION (21:00)
[2021-05-01] VITALS (25 sets, daily range): BP systolic 144–190; BP diastolic 59–92; PULSE 84–107; RESP 18–26; TEMP 36–36.5; O2SAT 91–100; BMI 10.0
--- NOTE | 2021-05-01 | ECHO_ITS ---
Patient Info Name: Belinda Black Age: 80 years : 1940 Gender: Female Ht: 61 in Wt: 201 lbs BSA: 2.03 m2 HR: 96 bpm BP: 161 / 90 mmHg Heart Rhythm: Sinus Rhythm Technical Quality: Fair Exam Date: 05/01/2021 10:02 AM Exam Location: [facility] Card Pulmonary Patient Status: Inpatient Admit Date: 04/27/2021 Staff Ordering Physician: Luis Felipe Love MD Activities Concierge: Anette Mai RDCS Attending Provider: Esther Hawthorne MD Referring Physician: Ivan ECHEVARRIA; Exam Type: CA echo doppler color flow Study Info Indications - CHF Complete two-dimensional, color flow and Doppler transthoracic echocardiogram is performed. Summary 1. Complete two-dimensional, color flow and Doppler transthoracic echocardiogram is performed. 2. Technically challenging exam. 3. Left ventricular hypertrophy with slight LV enlargement and normal systolic function. 4. Grade 1 diastolic noncompliance. 5. Mitral annular calcification with trivial. 6. Mild aortic stenosis. 7. Compared with study October of 2019 there is no significant change. Left Ventricle Left ventricular chamber dimension is mildly enlarged. Left ventricular systolic function is normal, estimated at 55-60%. The left ventricular diastolic function is grade I diastolic dysfunction. Right Ventricle Right ventricular chamber dimension is normal. Left Atria Left atrial chamber dimension is mildly enlarged. Right Atria Right atrial chamber dimension is normal. Aortic Valve The aortic valve is not well visualized. There is mild aortic valve stenosis with a peak velocity of 224 cm/s, mean gradient of 11 mmHg, and aortic valve area of 1.9 cm2. Pulmonic Valve The pulmonic valve is not well visualized. Mitral Valve The mitral valve has normal leaflets. There is trace mitral valve regurgitation. The mitral valve annulus is mildly calcified. Tricuspid Valve The tricuspid valve leaflets are normal. Pericardium/Pleural The pericardium appears normal. Aorta The aortic root size at the sinus of Valsalva is normal. Left Ventricular Outflow Tract Name Value Normal LVOT 2D LVOT Diameter 1.9 cm LVOT Doppler LVOT Peak Gradient 6 mmHg LVOT Mean Gradient 3 mmHg LVOT VTI 28 cm LVOT VTI/AV VTI Ratio 0.7 LVOT Stroke Volume 77 ml LVOT CO 6.4 l/min LVOT CI 3.1 l/min/m2 Pulmonic Valve Name Value Normal RVOT Doppler RVOT Peak Gradient 3 mmHg PV Doppler PV Peak Gradient 6 mmHg Mitral Valve Name
[2021-05-01] MEDS: IPRATROPIUM BR 0.02% INH SOLN 0.5 MG/2.5 ML VIAL INHALATION ×6 (00:45→22:18)
[2021-05-01] MEDS: ALBUTEROL SULFATE NEB 2.5 MG/0.5 ML INH INHALATION ×6 (00:45→22:18)
[2021-05-01 07:14] LABS: Sodium 131 mmol/L (137-145)
[2021-05-01 07:20] LABS: Albumin Level 3.5 g/dL (3.5-5.1); Blood Urea Nitrogen 25 mg/dL (7-17); Calcium 9.1 mg/dL (8.4-10.2); Carbon Dioxide > 40 mmol/L (22-30); Chloride 85 mmol/L (98-107); Estimated CRCL calculation 66 ml/min; Estimated Glomerular Filt Rate > 60; Glucose 93 mg/dL (65-110); Phosphorus 2.9 mg/dL (2.5-4.5)
[2021-05-01 07:43] LABS: NT Pro B Type Natriuretic Pept 931 pg/mL (5-100)
[2021-05-01] MEDS: CHOLECALCIFEROL 1,000 UNITS TABLET 5000 UNITS PO (08:43)
[2021-05-01] MEDS: CELECOXIB 100 MG CAPSULE PO (08:43)
[2021-05-01] MEDS: SODIUM CHLORIDE 1 GM TABLET PO (08:43)
[2021-05-01] MEDS: ENALAPRIL MALEATE 10 MG TABLET PO ×2 (08:44→21:20)
[2021-05-01] MEDS: FUROSEMIDE 20 MG TABLET PO (08:44)
[2021-05-01] MEDS: POTASSIUM CHLORIDE 10 MEQ TABLET.ER PO (08:45)
[2021-05-01] MEDS: OPTI-GEN TAB 1 TABLET PO ×2 (08:45→18:33)
[2021-05-01] MEDS: PANTOPRAZOLE 40 MG TABLET PO (08:45)
[2021-05-01] MEDS: methylPREDNISolone SOD SUCC 40 MG VIAL 20 MG IV PUSH ×2 (08:45→18:33)
[2021-05-01] MEDS: HEPARIN SODIUM 5,000 UNITS/ML VIAL 5000 UNITS SUB-Q (08:46)
[2021-05-01] MEDS: LORATADINE/PSEUDOEPHEDRINE (*CRX) 10/240 MG TABLET ER 24 HR 1 TAB PO (08:47)
[2021-05-01] MEDS: oxyCODONE HCL (*CRX) 5 MG TAB IR PO ×2 (08:54→22:52)
--- NOTE | 2021-05-01 08:55 | PM.IMPN ---
Progress Note: A&P Assessment and Plan (1) Acute on chronic respiratory failure with hypoxia and hypercapnia: Code(s): J96.21 - Acute and chronic respiratory failure with hypoxia; J96.22 - Acute and chronic respiratory failure with hypercapnia Status: Acute Assessment and Plan: Patient is currently using BiPAP on p.r.n. basis Try and keep oxygen saturation between 90-94% Supportive care (2) Decompensated COPD with exacerbation (chronic obstructive pulmonary disease): Code(s): J44.1 - Chronic obstructive pulmonary disease with (acute) exacerbation Status: Acute Assessment and Plan: Breathing treatments Systemic steroids Non productive cough No sputum production or change in sputum quality (3) Obstructive sleep apnea: Code(s): G47.33 - Obstructive sleep apnea (adult) (pediatric) Status: Acute Assessment and Plan: Patient not currently using CPAP at nighttime (4) Aortic stenosis: Code(s): I35.0 - Nonrheumatic aortic (valve) stenosis Status: Acute Assessment and Plan: Pre lower and post low dependent Continue to monitor Caution with fluids (5) Chronic hyponatremia: Code(s): E87.1 - Hypo-osmolality and hyponatremia Status: Acute Assessment and Plan: Continue to monitor (6) Chronic diastolic (congestive) heart failure: Onset Date: Unknown Code(s): I50.32 - Chronic diastolic (congestive) heart failure Status: Chronic Assessment and Plan: Will obtain echocardiogram in a.m. Give a trial Lasix. (7) GERD (gastroesophageal reflux disease): Code(s): K21.9 - Gastro-esophageal reflux disease without esophagitis Status: Acute Assessment and Plan: PPI as needed (8) Morbid obesity with BMI of 40.0-44.9, adult: Code(s): E66.01 - Morbid (severe) obesity due to excess calories; Z68.41 - Body mass index [BMI] 40.0-44.9, adult Status: Acute Assessment and Plan: Calorie restricted diet Additional Plan 04/27/2021 Will continue with BiPAP support, pulmonary consult order. Will also consult social media director for assisted placement. 04/28/2021 Will continue BiPAP support . Patient's sodium is low will consult Nephrology . Physical therapy to see patient . Monitor labs in the morning. 04/29/2021 Nephrology consult noted, patient was started on now sodium tablets to increase the sodium. Patient is feeling slightly better today, will continue with BiPAP and monitor CO2. Possible discharge in next couple of days. Start physical therapy 04/30/2021 Patient is improving gradually. Plan is to continue BiPAP was and increase activity as tolerated. 05/01/2021 Patient still requiring BiPAP. Patient BNP slightly high. Will give a IV Lasix 1 dose in the increase the p.o. Lasix to 40 p.o. q.day . Check echo for LV function. Otherwise continue current plan of care and treatment. Subjective Date/time seen: 05/01/21 08:55 Patient was seen during the morning rounds today. Mild shortness of breath, still requiring BiPAP treatment. No chest pain. No abdominal pain, nausea, no vomiting. Mood stable. Review of Systems Review of Systems: All systems reviewed & are unremarkable except as noted in HPI and below (the history and physical examination.) ROS unobtainable: Yes unobtainable due to medical condition (On BiPAP) Exam Const: General: comfortable, no acute distress, well developed, alert, awake, acute distress moderate and ill appearing chronically Nutritional Appearance: obese Orientation/consciousness: patient oriented x3 HENMT: Head: normal to inspection, normocephalic and atraumatic Ears: hearing grossly normal bilaterally General nose exam: Normal external nose present Face and sinus: normal facial exam Mouth: Yes Normal oral and palatal mucosa present Eyes: General: appearance normal, both eyes and all related structures Alignment and Position: alignment normal Sclera: sclerae nor
[2021-05-01 09:39] LABS: Alveolar/Arterial O2 Gradient 62.5 mmHg; Fractional Inspired Oxygen 32 %; HCO3 ABG 43.5 mEq/l (22.0-26.0); Oxygen Content ABG 15.9 %vol (16.0-22.0); Oxygen Saturation ABG 96.2 % (95.0-100.0); Oxyhemoglobin 95.3 % THb (90.0-100.0); PO2 ABG 85.3 mmHg (80.0-100.0); PO2 FiO2 Ratio Arterial Blood 2.67 %; Total Hemoglobin 11.8 g/dL (12.0-18.0); pH ABG 7.419 (7.350-7.450)
[2021-05-01 09:43] LABS: Device NASAL CANNULA; Modified Allen's Test Pass; PCO2 ABG 68.7 mmHg (35.0-45.0); Site Drawn LEFT RADIAL
--- NOTE | 2021-05-01 10:11 | PM.PNNEP ---
Progress Note: A&P Assessment and Plan (1) Chronic hyponatremia: Code(s): E87.1 - Hypo-osmolality and hyponatremia Status: Acute Assessment and Plan: The patient has chronic hyponatremia. Her sodium level runs between 129 and 134. TSH is normal. Cortisol level is low but she is on Solu-Medrol. SPEP is pending Osmolalities are pending No history of cancer. It is unlikely that years of hyponatremia would be present without an obvious cancer present if this were the cause. Patient has COPD. This is the most likely cause of the chronic hyponatremia Her sodium level is stable. Will view from a distance. (2) Acute hypercapnic respiratory failure: Code(s): J96.02 - Acute respiratory failure with hypercapnia Status: Acute Assessment and Plan: She is getting supportive care with BiPAP, inhalers, medics. (3) GERD (gastroesophageal reflux disease): Code(s): K21.9 - Gastro-esophageal reflux disease without esophagitis Status: Acute Assessment and Plan: She is on a PPI (4) COPD with emphysema: Code(s): J43.9 - Emphysema, unspecified Status: Acute Assessment and Plan: She is getting supportive care (5) Obstructive sleep apnea: Code(s): G47.33 - Obstructive sleep apnea (adult) (pediatric) Status: Acute Assessment and Plan: She gets a CPAP machine while here but does not use at home. She does not like the BiPAP and it mask. (6) Diastolic dysfunction: Code(s): I51.89 - Other ill-defined heart diseases Status: Acute Assessment and Plan: She is on diuretics Subjective Date/time seen: 05/01/21 10:11 Interval history: Patient is feeling better today. She is still weak. She is getting an echo right now Exam Narrative: WDWN in NAD skin no rash or subcu not head ncat lungs decreased breath sounds at the bases cor reg no rub or gallop abd BS+ nontender and soft ext no edema or cyanosis. Objective Data Vital Signs Vital Signs: Vital Signs - 24 hr 04/30/21 12:00 04/30/21 14:00 04/30/21 16:00 Temperature 36.9 C 36.8 C Pulse Rate 94 92 78 Respiratory Rate 25 H 21 H Blood Pressure 150/85 H 158/92 H Pulse Oximetry 100 93 04/30/21 18:00 04/30/21 20:00 04/30/21 21:00 Temperature 36.5 C Pulse Rate 87 87 88 Respiratory Rate 19 16 Blood Pressure 154/80 H Pulse Oximetry 100 100 04/30/21 21:07 04/30/21 22:00 04/30/21 23:13 Temperature Pulse Rate 86 86 86 Respiratory Rate 16 17 Blood Pressure Pulse Oximetry 100 05/01/21 00:00 05/01/21 00:45 05/01/21 00:52 Temperature 36.4 C L Pulse Rate 90 88 89 Respiratory Rate 18 18 18 Blood Pressure 144/71 H Pulse Oximetry 98 05/01/21 02:00 05/01/21 03:04 05/01/21 03:58 Temperature Pulse Rate 84 88 94 Respiratory Rate 18 18 Blood Pressure Pulse Oximetry 98 05/01/21 04:00 05/01/21 04:03 05/01/21 08:00 Temperature 36.2 C L 36.1 C L Pulse Rate 97 91 93 Respiratory Rate 22 H 22 H 26 H Blood Pressure 161/90 H 190/81 H Pulse Oximetry 100 100 05/01/21 09:29 Temperature Pulse Rate 92 Respiratory Rate 20 Blood Pressure Pulse Oximetry 93 Intake/Output Intake/Output: Intake & Output 04/28/21 04/29/21 04/30/21 05/01/21 23:59 23:59 23:59 23:59 Intake Total 1220 700 400 300 Output Total 1300 992 598 6111 Balance -80 -275 -275 -1375 Meds/Results Medications: Active Medications Generic Name Dose Route Start Last Admin Trade Name Bakariq PRN Reason Stop Dose Admin Acetaminophen 650 mg 04/27/21 01:25 04/28/21 22:56 Acetaminophen 325 Mg Tablet PO 650 mg Q4H PRN Administration Mild Pain (1-3) or Fever Hydrocodone Bitart/Acetaminophen 1 tab 04/27/21 01:25 04/30/21 17:22 Hydrocodone/Acetaminophen (*Crx) 5-325 Mg Tablet PO 1 tab Q4H PRN Administration Pain Rated 4-6 Albuterol 2 puff 04/27/21 10:56 Albuterol Sulfate (*Sp) Aerosol 1 Puff INHALATION
[2021-05-01] MEDS: FUROSEMIDE INJ 40 MG/4 ML VIAL IV PUSH (10:45)
--- NOTE | 2021-05-01 11:17 | PM.PNPUL ---
Progress Note: A&P Assessment and Plan (1) Acute exacerbation of chronic obstructive airways disease: Code(s): J44.1 - Chronic obstructive pulmonary disease with (acute) exacerbation Status: Acute Assessment and Plan: 04/29 Patient with acute exacerbation of COPD and has improved on IV Solu-Medrol, albuterol nebulizers and inhaled long-acting muscarinic antagonist. There is no evidence of PE on her CT angiogram on 04/27/2021. There is no evidence of pneumonia on her CT scan. she is afebrile with a normal white blood cell count. Rapid COVID antigen test is negative. There are no wheezes on exam today and I will continue this regimen. I will consider changing to p.o. prednisone on 04/30/2021. 04/30 Patient had no wheezes on exam this morning and I will decrease her Solu-Medrol to 20 mg IV Q 12 hours, I will change her increased ellipta to nebulized ipratropium as she feels nebulization gives her better medicine delivery and I will increase the nebulizer frequency to q.4 hours. She was short of breath this morning and she was placed back on her noninvasive ventilator. 05/01 Currently she is on 3 L nasal cannula with saturations 93%. she had no wheezes on exam. She remains on Solu-Medrol 20 mg IV q.12 hours and albuterol and ipratropium nebulizers q.4 hours. Recommend to continue this regimen today and if she is improved tomorrow could consider switching her to prednisone 40 mg p.o. q.day. Will check BNP and echocardiogram To assess LV, RV and valvular function. Patient is on Lasix 40 mg p.o. q.day and is -2 0.5 L since admission.. (2) Acute on chronic respiratory failure with hypoxia and hypercapnia: Code(s): J96.21 - Acute and chronic respiratory failure with hypoxia; J96.22 - Acute and chronic respiratory failure with hypercapnia Status: Acute Assessment and Plan: 04/29 Patient presented with a blood gas of 7.41/64/77 on 4 L nasal cannula. Patient has COPD with acute on chronic hypercarbic and hypoxemic respiratory failure. Patient would benefit from noninvasive ventilation To prevent subsequent deterioration and further hospitalizations. Patient did not tolerate BiPAP because the pressures were too high. I switched to noninvasive ventilation with an AVAPS mode with a rate of 14, tidal volume 500, EPAP 5, minimal inspiratory pressure 6, maximal inspiratory pressure 30, inspiratory time 1.0, rise 1, 30% FiO2 and she said that this was more comfortable and she may be able to sleep with this tonight. I will order an overnight oximetry to assess her oxygenation and a blood gas prior to removal of the noninvasive ventilator to assess her ventilation. She only wore the mask for 3 hours and the overnight oximetry was good. 04/30 I will continue the above-mentioned noninvasive ventilation with AVAPS mode and check a blood gas in the morning prior to removal. 05/01 Patient states that she is breathing about the same as yesterday. Patient wore her noninvasive ventilator all day yesterday and overnight. When I saw her she was on the BiPAP and she Stated that the machine was pushing too much air in. I changed to pressure the settings to a rate of 14, tidal volume 450, EPAP 5, inspiratory pressure min 6, inspiratory pressure max 30, inspiratory time 1.2, rise of 5 which is are slow is to, and 40% FiO2 she said that this was more comfortable for her. She feels like she could take the BiPAP off later today. later in the morning she was able to come off the BiPAP and she had a blood gas about 10 minutes after she took the BiPAP off and was on 3 L with a pH of 7.42/69/85. I will continue these current settings. Discussed with Dr. Love. Inpatient Pulmonary Services will resume on 05/04/2021. Subjective Date/time seen: 05/01/21 11:17 Interval history: 04/28/21 09:25 patient remains BiPAP dependent. Currently on BiPAP 16/4, 30% FiO2, less shortness of breath compared to yesterday
--- NOTE | 2021-05-01 13:45 | PCNFU ---
Nutrition Follow-Up Complete: Inadequate oral intake related to respiratory failure as evidenced by poor intake Goal: Meet nutritional needs Pt. is progressing towards goal. No new goal at this time. Pt current nutrition is a heart healthy diet. Last recorded weight is 91.6 kg. Recommend re-weighing pt. prior to discharge to ensure no significant weight loss has occurred. Bowel Motility: + 05/01/2021 Labs Reviewed: Na 131, BUN 25, Cr 0.6 Meds Noted: Albuterol, Vasotec, Norvasc, Lasix, Atrovent Neb, Protonix, Mirapex, Kcl tablet, vitamin D, sodium chloride Skin: No skin break down at this time. WNL. Additional Notes: Patient is ordered ensure compact TID providing an additional 220 calories and 9 grams of protein with each meal to increase oral intake. Was consulted for possible tube feeding on 04/28 due to pt. inability to tolerate bipap breaks but pt. was very anxious to start feedings. We decided to start ensure and see how she progressed. Pt. is currently using bipap on prn basis. Spoke with pt. nurse who said she is eating meals now that bipap is ordered as needed. She has been eating on average 50% of meals. Follow and monitor labs, wt, meds, and intake every 3 days.
[2021-05-01 17:38] LABS: Osmolality, Urine 448 mOsm/kg (50-1200)
[2021-05-01 18:02] LABS: Glucose Point of Care 166 mg/dl (65-105)
[2021-05-01 19:07] LABS: Hemoglobin A1C 5.7 % (<5.7)
[2021-05-01 21:21] LABS: Glucose Point of Care 181 mg/dl (65-105)
[2021-05-01] MEDS: HYDROcodone/acetaminophen (*CRX) 5-325 MG TABLET 1 TAB PO (22:52)
[2021-05-02] VITALS (14 sets, daily range): BP systolic 143–169; BP diastolic 49–88; PULSE 4–110; RESP 16–24; TEMP 36.1–36.8; O2SAT 93–100
[2021-05-02 07:35] LABS: Alanine Aminotransferase 38 U/L (4-35); Albumin Level 3.9 g/dL (3.5-5.1); Alkaline Phosphatase 66 U/L (38-126); Aspartate Amino Transferase 33 U/L (14-36); Bilirubin,Total 0.4 mg/dL (0.2-1.3); Blood Urea Nitrogen 28 mg/dL (7-17); Calcium 9.5 mg/dL (8.4-10.2); Carbon Dioxide > 40 mmol/L (22-30); Chloride 78 mmol/L (98-107); Estimated CRCL calculation 57 ml/min; Estimated Glomerular Filt Rate > 60; Glucose 108 mg/dL (65-110); Potassium 4.1 mmol/L (3.4-5.0); Sodium 129 mmol/L (137-145)
--- NOTE | 2021-05-02 08:30 | PM.IMPN ---
Progress Note: A&P Assessment and Plan (1) Acute on chronic respiratory failure with hypoxia and hypercapnia: Code(s): J96.21 - Acute and chronic respiratory failure with hypoxia; J96.22 - Acute and chronic respiratory failure with hypercapnia Status: Acute Assessment and Plan: Patient is currently using BiPAP on p.r.n. basis Try and keep oxygen saturation between 90-94% Supportive care (2) Decompensated COPD with exacerbation (chronic obstructive pulmonary disease): Code(s): J44.1 - Chronic obstructive pulmonary disease with (acute) exacerbation Status: Acute Assessment and Plan: Breathing treatments Systemic steroids Non productive cough No sputum production or change in sputum quality (3) Obstructive sleep apnea: Code(s): G47.33 - Obstructive sleep apnea (adult) (pediatric) Status: Acute Assessment and Plan: Patient not currently using CPAP at nighttime (4) Aortic stenosis: Code(s): I35.0 - Nonrheumatic aortic (valve) stenosis Status: Acute Assessment and Plan: Pre lower and post low dependent Continue to monitor Caution with fluids (5) Chronic hyponatremia: Code(s): E87.1 - Hypo-osmolality and hyponatremia Status: Acute Assessment and Plan: Continue to monitor (6) Chronic diastolic (congestive) heart failure: Onset Date: Unknown Code(s): I50.32 - Chronic diastolic (congestive) heart failure Status: Chronic Assessment and Plan: Will obtain echocardiogram in a.m. Give a trial Lasix. (7) GERD (gastroesophageal reflux disease): Code(s): K21.9 - Gastro-esophageal reflux disease without esophagitis Status: Acute Assessment and Plan: PPI as needed (8) Morbid obesity with BMI of 40.0-44.9, adult: Code(s): E66.01 - Morbid (severe) obesity due to excess calories; Z68.41 - Body mass index [BMI] 40.0-44.9, adult Status: Acute Assessment and Plan: Calorie restricted diet Additional Plan 04/27/2021 Will continue with BiPAP support, pulmonary consult order. Will also consult social studies teacher for snf placement. 04/28/2021 Will continue BiPAP support . Patient's sodium is low will consult Nephrology . Physical therapy to see patient . Monitor labs in the morning. 04/29/2021 Nephrology consult noted, patient was started on now sodium tablets to increase the sodium. Patient is feeling slightly better today, will continue with BiPAP and monitor CO2. Possible discharge in next couple of days. Start physical therapy 04/30/2021 Patient is improving gradually. Plan is to continue BiPAP was and increase activity as tolerated. 05/01/2021 Patient still requiring BiPAP. Patient BNP slightly high. Will give a IV Lasix 1 dose in the increase the p.o. Lasix to 40 p.o. q.day . Check echo for LV function. Otherwise continue current plan of care and treatment. May 02, 2021 Patient is slightly better today . Plan is to continue current plan of care and treatment. Use BiPAP as needed. Increase activity. Subjective Date/time seen: 05/02/21 08:30 Patient was seen during the morning rounds today. Patient is feeling slightly better. Patient is still using intermittently BiPAP. But we do have intervals when patient is not requiring BiPAP. No chest pain. No abdominal pain, nausea, no vomiting. Mood stable Review of Systems Review of Systems: All systems reviewed & are unremarkable except as noted in HPI and below (the history and physical examination.) ROS unobtainable: Yes unobtainable due to medical condition (On BiPAP) Exam Const: General: comfortable, no acute distress, well developed, alert, awake, acute distress moderate and ill appearing chronically Nutritional Appearance: obese Orientation/consciousness: patient oriented x3 HENMT: Head: normal to inspection, normocephalic and atraumatic Ears: hearing grossly normal bilaterally General nose exam: Normal exter
[2021-05-02] MEDS: SODIUM CHLORIDE 1 GM TABLET PO (08:34)
[2021-05-02] MEDS: CHOLECALCIFEROL 1,000 UNITS TABLET 5000 UNITS PO (08:35)
[2021-05-02] MEDS: CELECOXIB 100 MG CAPSULE PO (08:35)
[2021-05-02] MEDS: ENALAPRIL MALEATE 10 MG TABLET PO ×2 (08:35→21:00)
[2021-05-02] MEDS: OPTI-GEN TAB 1 TABLET PO ×2 (08:36→16:54)
[2021-05-02] MEDS: FUROSEMIDE 40 MG TABLET PO (08:36)
[2021-05-02] MEDS: POTASSIUM CHLORIDE 10 MEQ TABLET.ER PO (08:36)
[2021-05-02] MEDS: methylPREDNISolone SOD SUCC 40 MG VIAL 20 MG IV PUSH ×2 (08:36→16:54)
[2021-05-02] MEDS: PANTOPRAZOLE 40 MG TABLET PO (08:36)
[2021-05-02] MEDS: LORATADINE/PSEUDOEPHEDRINE (*CRX) 10/240 MG TABLET ER 24 HR 1 TAB PO (08:39)
[2021-05-02 08:53] LABS: Glucose Point of Care 91 mg/dl (65-105)
[2021-05-02] MEDS: oxyCODONE HCL (*CRX) 5 MG TAB IR PO ×2 (08:57→21:00)
[2021-05-02] MEDS: amLODIPine BESYLATE 5 MG TABLET PO (09:51)
[2021-05-02] MEDS: IPRATROPIUM BR 0.02% INH SOLN 0.5 MG/2.5 ML VIAL INHALATION ×4 (09:59→19:49)
[2021-05-02] MEDS: ALBUTEROL SULFATE NEB 2.5 MG/0.5 ML INH INHALATION ×4 (10:00→19:49)
--- NOTE | 2021-05-02 10:27 | PM.PNNEP ---
Progress Note: A&P Assessment and Plan (1) Chronic hyponatremia: Code(s): E87.1 - Hypo-osmolality and hyponatremia Status: Acute Assessment and Plan: The patient has chronic hyponatremia. Her sodium level runs between 129 and 134. TSH is normal. Cortisol level is low but she is on Solu-Medrol. SPEP is pending Osmolalities are pending No history of cancer. It is unlikely that years of hyponatremia would be present without an obvious cancer present if this were the cause. Patient has COPD. This is the most likely cause of the chronic hyponatremia Her sodium level is a little lower. Received a larger dose of diuretics yesterday. She says she drinks a lot of water. I had a long discussion with her about low sodium. We also discussed having to restrict salt in her diet. As is common she was confused about the low-sodium versus the low-salt diet. We discussed this at length and she understands that salt causes swelling and shortness of breath, and that sodium level has to do with the balance of sodium in the blood. In any case she understands that she should avoid salty foods and salt. She should also avoid excess water intake. I told her somewhere between a court and cord and half per day. (2) Acute hypercapnic respiratory failure: Code(s): J96.02 - Acute respiratory failure with hypercapnia Status: Acute Assessment and Plan: She is getting supportive care with BiPAP, inhalers, medics. (3) GERD (gastroesophageal reflux disease): Code(s): K21.9 - Gastro-esophageal reflux disease without esophagitis Status: Acute Assessment and Plan: She is on a PPI (4) COPD with emphysema: Code(s): J43.9 - Emphysema, unspecified Status: Acute Assessment and Plan: She is getting supportive care (5) Obstructive sleep apnea: Code(s): G47.33 - Obstructive sleep apnea (adult) (pediatric) Status: Acute Assessment and Plan: She gets a CPAP machine while here but does not use at home. She does not like the BiPAP and it mask. (6) Diastolic dysfunction: Code(s): I51.89 - Other ill-defined heart diseases Status: Acute Assessment and Plan: She is on diuretics. He received an IV dose yesterday and made 5L of urine. She still looks a little short of breath to august so I am going to give her another dose of IV diuretics. Will see how her sodium is tomorrow. Perhaps she needs a salt tablet with her oral diuretics. Subjective Date/time seen: 05/02/21 10:27 Interval history: Patient is feeling about the same today. She sees some loop diuretics yesterday because she was short of breath. She feels about the same today. She is getting an echo right now Exam Narrative: WDWN in NAD skin no rash or subcu not head ncat lungs decreased breath sounds at the bases cor reg no rub abd BS+ nontender and soft ext no edema Objective Data Vital Signs Vital Signs: Vital Signs - 24 hr 05/01/21 11:48 05/01/21 11:56 05/01/21 12:00 Temperature 36.4 C L Pulse Rate 91 91 96 Respiratory Rate 20 20 22 H Blood Pressure 153/59 H Pulse Oximetry 95 05/01/21 14:00 05/01/21 16:00 05/01/21 16:45 Temperature 36.0 C L Pulse Rate 97 93 94 Respiratory Rate 22 H 20 Blood Pressure 155/72 H Pulse Oximetry 99 05/01/21 16:48 05/01/21 16:53 05/01/21 18:00 Temperature Pulse Rate 96 100 Respiratory Rate 20 Blood Pressure Pulse Oximetry 95 05/01/21 19:54 05/01/21 20:00 05/01/21 22:00 Temperature 36.5 C Pulse Rate 94 93 105 H Respiratory Rate 20 20 Blood Pressure 149/92 H Pulse Oximetry 98 98 05/01/21 22:25 05/01/21 22:26 05/02/21 00:00 Temperature 36.4 C Pulse Rate 94 107 H 92 Respiratory Rate 22 H 18 22 H Blood Pressure Pulse Oximetry 91 98 05/02/21 02:00 05/02/21 04:00 05/02/21 06:00 Temperature 36.4 C L Pulse Rate 94 91 96 Respiratory Rate 18 Blood Pressure 169/88 H
[2021-05-02] MEDS: FUROSEMIDE INJ 40 MG/4 ML VIAL IV PUSH (10:43)
[2021-05-02 12:51] LABS: Glucose Point of Care 168 mg/dl (65-105)
[2021-05-02] MEDS: CALCIUM CARBONATE (TUMS) 500 MG (200 MG ELEMENTAL) PO (13:49)
[2021-05-02 17:15] LABS: Glucose Point of Care 184 mg/dl (65-105)
[2021-05-02 20:56] LABS: Glucose Point of Care 242 mg/dl (65-105)
[2021-05-02] MEDS: oxyCODONE/ACETAMINOPHEN (*CRX) 5-325 MG TABLET 1 TABLET PO (21:00)
[2021-05-03] VITALS (7 sets, daily range): BP systolic 147–155; BP diastolic 68–92; PULSE 91–113; RESP 14–20; TEMP 36.1–37.2; O2SAT 90–100
[2021-05-03] MEDS: IPRATROPIUM BR 0.02% INH SOLN 0.5 MG/2.5 ML VIAL INHALATION ×2 (01:56→09:28)
[2021-05-03] MEDS: ALBUTEROL SULFATE NEB 2.5 MG/0.5 ML INH INHALATION ×2 (01:56→09:29)
[2021-05-03 05:51] LABS: Albumin Level 3.6 g/dL (3.5-5.1); Blood Urea Nitrogen 41 mg/dL (7-17); Carbon Dioxide > 40 mmol/L (22-30); Chloride 77 mmol/L (98-107); Estimated CRCL calculation 50 ml/min; Estimated Glomerular Filt Rate > 60; Glucose 126 mg/dL (65-110); Phosphorus 3.9 mg/dL (2.5-4.5); Potassium 4.3 mmol/L (3.4-5.0); Sodium 129 mmol/L (137-145)
[2021-05-03 05:52] LABS: Albumin 3.6 g/dL (3.8-4.8); Alpha 1 Globulin 0.4 g/dL (0.2-0.3); Alpha 2 Globulin 0.9 g/dL (0.5-0.9); Beta 1 Globulin 0.5 g/dL (0.4-0.6); Gamma Globulin 0.7 g/dL (0.8-1.7); Protein, Total 6.4 g/dL (6.1-8.1)
[2021-05-03] MEDS: methylPREDNISolone SOD SUCC 40 MG VIAL 20 MG IV PUSH ×2 (08:41→16:18)
[2021-05-03] MEDS: oxyCODONE HCL (*CRX) 5 MG TAB IR PO (08:41)
[2021-05-03] MEDS: LORATADINE/PSEUDOEPHEDRINE (*CRX) 10/240 MG TABLET ER 24 HR 1 TAB PO (08:41)
[2021-05-03] MEDS: ENALAPRIL MALEATE 10 MG TABLET PO ×2 (08:42→23:31)
[2021-05-03] MEDS: CELECOXIB 100 MG CAPSULE PO (08:42)
[2021-05-03] MEDS: OPTI-GEN TAB 1 TABLET PO ×2 (08:42→16:18)
[2021-05-03] MEDS: SODIUM CHLORIDE 1 GM TABLET PO (08:42)
[2021-05-03] MEDS: FUROSEMIDE 40 MG TABLET PO (08:42)
[2021-05-03] MEDS: PANTOPRAZOLE 40 MG TABLET PO (08:43)
[2021-05-03] MEDS: amLODIPine BESYLATE 5 MG TABLET PO (08:43)
[2021-05-03] MEDS: CHOLECALCIFEROL 1,000 UNITS TABLET 5000 UNITS PO (08:43)
[2021-05-03] MEDS: POTASSIUM CHLORIDE 10 MEQ TABLET.ER PO (08:43)
[2021-05-03 08:51] LABS: Glucose Point of Care 94 mg/dl (65-105)
--- NOTE | 2021-05-03 09:13 | PM.IMPN ---
Progress Note: A&P Assessment and Plan (1) Acute on chronic respiratory failure with hypoxia and hypercapnia: Code(s): J96.21 - Acute and chronic respiratory failure with hypoxia; J96.22 - Acute and chronic respiratory failure with hypercapnia Status: Acute Assessment and Plan: Patient is currently using BiPAP on p.r.n. basis Try and keep oxygen saturation between 90-94% Supportive care (2) Decompensated COPD with exacerbation (chronic obstructive pulmonary disease): Code(s): J44.1 - Chronic obstructive pulmonary disease with (acute) exacerbation Status: Acute Assessment and Plan: Breathing treatments Systemic steroids Non productive cough No sputum production or change in sputum quality (3) Obstructive sleep apnea: Code(s): G47.33 - Obstructive sleep apnea (adult) (pediatric) Status: Acute Assessment and Plan: Patient not currently using CPAP at nighttime (4) Aortic stenosis: Code(s): I35.0 - Nonrheumatic aortic (valve) stenosis Status: Acute Assessment and Plan: Pre lower and post low dependent Continue to monitor Caution with fluids (5) Chronic hyponatremia: Code(s): E87.1 - Hypo-osmolality and hyponatremia Status: Acute Assessment and Plan: Continue to monitor (6) Chronic diastolic (congestive) heart failure: Onset Date: Unknown Code(s): I50.32 - Chronic diastolic (congestive) heart failure Status: Chronic Assessment and Plan: Will obtain echocardiogram in a.m. Give a trial Lasix. (7) GERD (gastroesophageal reflux disease): Code(s): K21.9 - Gastro-esophageal reflux disease without esophagitis Status: Acute Assessment and Plan: PPI as needed (8) Morbid obesity with BMI of 40.0-44.9, adult: Code(s): E66.01 - Morbid (severe) obesity due to excess calories; Z68.41 - Body mass index [BMI] 40.0-44.9, adult Status: Acute Assessment and Plan: Calorie restricted diet Additional Plan 04/27/2021 Will continue with BiPAP support, pulmonary consult order. Will also consult social sciences lecturer for residential placement. 04/28/2021 Will continue BiPAP support . Patient's sodium is low will consult Nephrology . Physical therapy to see patient . Monitor labs in the morning. 04/29/2021 Nephrology consult noted, patient was started on now sodium tablets to increase the sodium. Patient is feeling slightly better today, will continue with BiPAP and monitor CO2. Possible discharge in next couple of days. Start physical therapy 04/30/2021 Patient is improving gradually. Plan is to continue BiPAP was and increase activity as tolerated. 05/01/2021 Patient still requiring BiPAP. Patient BNP slightly high. Will give a IV Lasix 1 dose in the increase the p.o. Lasix to 40 p.o. q.day . Check echo for LV function. Otherwise continue current plan of care and treatment. May 02, 2021 Patient is slightly better today . Plan is to continue current plan of care and treatment. Use BiPAP as needed. Increase activity. May 03, 2021 Patient is feeling slightly better today. Still using BiPAP on intermittent basis. Plan is to increase activity and continue current treatment. Consult care coordination for rehab placement. Subjective Date/time seen: 05/03/21 09:13 Patient was seen during the morning rounds today. Patient is feeling slightly better. Still using BiPAP on an intermittent basis. Decreased shortness of breath. No chest pain. No abdominal pain, nausea, no vomiting. Mood stable. Review of Systems Review of Systems: All systems reviewed & are unremarkable except as noted in HPI and below (the history and physical examination.) ROS unobtainable: Yes unobtainable due to medical condition (On BiPAP) Exam Const: General: comfortable, no acute distress, well developed, alert, awake, acute distress moderate and ill appearing chronically Nutritional Appearance: obese Orientation
--- NOTE | 2021-05-03 10:14 | PCPTNOTE ---
Attempted to see patient for Physical Therapy treatment. Patient declined at this time stating I'm just so tired and really sore. I probably won't be doing anything tomorrow either. Will continue with patient care per PT POC.
[2021-05-03] MEDS: HEPARIN SODIUM 5,000 UNITS/ML VIAL 5000 UNITS SUB-Q ×2 (10:57→23:34)
[2021-05-03 12:26] LABS: Glucose Point of Care 173 mg/dl (65-105)
--- NOTE | 2021-05-03 13:00 | PC.NURSE ---
This patient, Belinda Black, was transferred to [322-1] on 05/03/21 at 1240. Personal belongings sent with patient. Report given to [Gabrielle ]. Appropriate documentation sent with patient.
--- NOTE | 2021-05-03 13:40 | PC.NURSE ---
This patient, Belinda Black, was admitted to [facility] Surg Room 322-01 at 1315. Patient/family oriented to hospital policies and general routines including ID bracelet, bed and alarms, visiting hours, pain management, procedures, bathroom and other care routines, personal items, smoking policy, room service/diet, and visiting hours. Information on how to activate the Rapid Response Team has been discussed. Patient/Family are encouraged to report perceived risks to care and to ask questions if they do not understand what they are told or what they should do.
--- NOTE | 2021-05-03 16:00 | PCRCNOTE ---
Window of time for administration has passed. See next scheduled administration.
[2021-05-03 17:51] LABS: Glucose Point of Care 199 mg/dl (65-105)
--- NOTE | 2021-05-03 17:57 | PCRCNOTE ---
Window of time for administration has passed. See next scheduled administration.
--- NOTE | 2021-05-03 23:35 | PCRCNOTE ---
Window of time for administration has passed. See next scheduled administration.
[2021-05-03 23:52] LABS: Glucose Point of Care 248 mg/dl (65-105)
[2021-05-04] VITALS (15 sets, daily range): BP systolic 132–151; BP diastolic 63–80; PULSE 82–100; RESP 14–22; TEMP 36.3–36.4; O2SAT 65–98
[2021-05-04] MEDS: ALBUTEROL SULFATE NEB 2.5 MG/0.5 ML INH INHALATION ×5 (04:14→21:03)
[2021-05-04] MEDS: IPRATROPIUM BR 0.02% INH SOLN 0.5 MG/2.5 ML VIAL INHALATION ×5 (04:14→21:03)
[2021-05-04 04:40] LABS: Alveolar/Arterial O2 Gradient 17.3 mmHg; Base Excess ABG 19.7 mEq/l (+/-2.0); Fractional Inspired Oxygen 28 %; Oxygen Content ABG 18.4 %vol (16.0-22.0); Oxyhemoglobin 97.2 % THb (90.0-100.0); PO2 ABG 105.5 mmHg (80.0-100.0); PO2 FiO2 Ratio Arterial Blood 3.77 %; Total Hemoglobin 13.4 g/dL (12.0-18.0); pH ABG 7.476 (7.350-7.450)
[2021-05-04 04:44] LABS: PCO2 ABG 65.1 mmHg (35.0-45.0)
[2021-05-04 04:45] LABS: Device NASAL CANNULA; Modified Allen's Test Pass; Site Drawn RIGHT RADIAL
[2021-05-04 07:58] LABS: Glucose Point of Care 99 mg/dl (65-105)
[2021-05-04] MEDS: LORATADINE/PSEUDOEPHEDRINE (*CRX) 10/240 MG TABLET ER 24 HR 1 TAB PO (08:40)
[2021-05-04] MEDS: OPTI-GEN TAB 1 TABLET PO ×2 (08:40→16:29)
[2021-05-04] MEDS: POTASSIUM CHLORIDE 10 MEQ TABLET.ER PO (08:40)
[2021-05-04] MEDS: PANTOPRAZOLE 40 MG TABLET PO (08:40)
[2021-05-04] MEDS: amLODIPine BESYLATE 5 MG TABLET PO (08:40)
[2021-05-04] MEDS: CELECOXIB 100 MG CAPSULE PO (08:40)
[2021-05-04] MEDS: CHOLECALCIFEROL 1,000 UNITS TABLET 5000 UNITS PO (08:40)
[2021-05-04] MEDS: FUROSEMIDE 40 MG TABLET PO (08:40)
[2021-05-04] MEDS: ENALAPRIL MALEATE 10 MG TABLET PO ×2 (08:40→22:58)
[2021-05-04] MEDS: SODIUM CHLORIDE 1 GM TABLET PO (08:40)
[2021-05-04] MEDS: HEPARIN SODIUM 5,000 UNITS/ML VIAL 5000 UNITS SUB-Q ×2 (08:41→23:02)
[2021-05-04] MEDS: methylPREDNISolone SOD SUCC 40 MG VIAL 20 MG IV PUSH (08:41)
--- NOTE | 2021-05-04 09:10 | PM.IMPN ---
Progress Note: A&P Assessment and Plan (1) Acute on chronic respiratory failure with hypoxia and hypercapnia: Code(s): J96.21 - Acute and chronic respiratory failure with hypoxia; J96.22 - Acute and chronic respiratory failure with hypercapnia Status: Acute Assessment and Plan: Patient is currently using BiPAP on p.r.n. basis Try and keep oxygen saturation between 90-94% Supportive care (2) Decompensated COPD with exacerbation (chronic obstructive pulmonary disease): Code(s): J44.1 - Chronic obstructive pulmonary disease with (acute) exacerbation Status: Acute Assessment and Plan: Breathing treatments Systemic steroids Non productive cough No sputum production or change in sputum quality (3) Obstructive sleep apnea: Code(s): G47.33 - Obstructive sleep apnea (adult) (pediatric) Status: Acute Assessment and Plan: Patient not currently using CPAP at nighttime (4) Aortic stenosis: Code(s): I35.0 - Nonrheumatic aortic (valve) stenosis Status: Acute Assessment and Plan: Pre lower and post low dependent Continue to monitor Caution with fluids (5) Chronic hyponatremia: Code(s): E87.1 - Hypo-osmolality and hyponatremia Status: Acute Assessment and Plan: Continue to monitor (6) Chronic diastolic (congestive) heart failure: Onset Date: Unknown Code(s): I50.32 - Chronic diastolic (congestive) heart failure Status: Chronic Assessment and Plan: Will obtain echocardiogram in a.m. Give a trial Lasix. (7) GERD (gastroesophageal reflux disease): Code(s): K21.9 - Gastro-esophageal reflux disease without esophagitis Status: Acute Assessment and Plan: PPI as needed (8) Morbid obesity with BMI of 40.0-44.9, adult: Code(s): E66.01 - Morbid (severe) obesity due to excess calories; Z68.41 - Body mass index [BMI] 40.0-44.9, adult Status: Acute Assessment and Plan: Calorie restricted diet Additional Plan 04/27/2021 Will continue with BiPAP support, pulmonary consult order. Will also consult social media sr strategy manager for halfway placement. 04/28/2021 Will continue BiPAP support . Patient's sodium is low will consult Nephrology . Physical therapy to see patient . Monitor labs in the morning. 04/29/2021 Nephrology consult noted, patient was started on now sodium tablets to increase the sodium. Patient is feeling slightly better today, will continue with BiPAP and monitor CO2. Possible discharge in next couple of days. Start physical therapy 04/30/2021 Patient is improving gradually. Plan is to continue BiPAP was and increase activity as tolerated. 05/01/2021 Patient still requiring BiPAP. Patient BNP slightly high. Will give a IV Lasix 1 dose in the increase the p.o. Lasix to 40 p.o. q.day . Check echo for LV function. Otherwise continue current plan of care and treatment. May 02, 2021 Patient is slightly better today . Plan is to continue current plan of care and treatment. Use BiPAP as needed. Increase activity. May 03, 2021 Patient is feeling slightly better today. Still using BiPAP on intermittent basis. Plan is to increase activity and continue current treatment. Consult care coordination for rehab placement. May 04, 2021 No new overnight issues. Plan is to continue treatment with intermittent BiPAP use. Increase activity as tolerated. Consult direct care staffer for rehab placement. Subjective Date/time seen: 05/04/21 09:10 Patient was seen during the morning rounds today. Shortness of breath no chest pain. No abdominal pain, no nausea or vomiting. Mood stable. Review of Systems Review of Systems: All systems reviewed & are unremarkable except as noted in HPI and below (the history and physical examination.) ROS unobtainable: Yes unobtainable due to medical condition (On BiPAP) Exam Narrative: Patient is laying in gurney Const: General: comfortable, no acute di
[2021-05-04 09:51] LABS: Basophils Percent Auto 0.2 % (0.2-1.2); Eosinophils Absolute Auto 0.1 K/mm3 (0-0.3); Eosinophils Percent Auto 0.6 % (0-4.4); Hematocrit 41.1 % (37.0-47.0); Hemoglobin 12.7 g/dL (12.0-15.0); Immature Granulocyte Absolute 0.09 K/mm3 (0.00-0.031); Immature Granulocyte Percent A 0.6 % (0-0.5); Lymphocytes Absolute Auto 1.19 K/mm3 (0.9-3.2); Lymphocytes Percent Auto 8.5 % (18.3-44.2); Mean Corpuscular HGB Conc 30.9 g/dl (32-36); Mean Corpuscular Hemoglobin 27.1 pg (26-34); Mean Corpuscular Volume 87.6 fl (80-100); Mean Platelet Volume 10.5 fl (7.4-10.4); Monocytes Absolute Auto 1.9 K/mm3 (0.1-0.6); Monocytes Percent Auto 13.7 % (2.6-8.5); Neutrophils Absolute Auto 10.8 K/mm3 (1.3-6.7); Neutrophils Percent Auto 76.4 % (45.5-73.1); Platelet Count Result 335 k/mm3 (150-375); Red Blood Count 4.69 M/mm3 (4.2-5.4); White Blood Count 14.1 K/mm3 (4.5-10.0)
[2021-05-04 10:23] LABS: Alanine Aminotransferase 77 U/L (4-35); Albumin Level 3.6 g/dL (3.5-5.1); Alkaline Phosphatase 72 U/L (38-126); Aspartate Amino Transferase 40 U/L (14-36); Bilirubin,Total 0.5 mg/dL (0.2-1.3); Blood Urea Nitrogen 38 mg/dL (7-17); Calcium 9.6 mg/dL (8.4-10.2); Carbon Dioxide > 40 mmol/L (22-30); Chloride 82 mmol/L (98-107); Estimated CRCL calculation 49 ml/min; Estimated Glomerular Filt Rate > 60; Glucose 98 mg/dL (65-110); Magnesium 2.2 mg/dL (1.6-2.3); Sodium 132 mmol/L (137-145)
--- NOTE | 2021-05-04 11:29 | PCNFU ---
Nutrition Follow-Up Complete: Inadequate oral intake related to respiratory failure as evidenced by poor intake Goal: Meet nutritional needs Pt. is progressing towards goal. No new goal at this time. Pt current nutrition is a diabetic consistent carbohydrate diet as well as a heart healthy diet. Last recorded weight is 86.6 kg. Recommend re-weighing pt. prior to discharge to monitor weight trends. Bowel Motility: + BM 05/02/2021 Labs Reviewed: Na 132, BUN 38 Meds Noted: Albuterol, Norvasc, Celebrex, Lasix, Vasotec, Heparin Sodium, Glucagon, Insulin, Atrovent Neb, Protonix, Miralax, Kcl Tablet Skin: No skin breakdown at this time. WNL. Additional Notes: Pt. is ordered ensure compact TID providing an additional 220 calories and 9 grams of protein at each meal. Average meal consumption of 45%. Checked in with pt. who says she has a great appetite and is always hungry . She has no issues eating at meal times. She states she often does not feel satisfied after consuming a full meal. Ordered a 1,500 ml fluid restriction per 24 hours. Follow and monitor labs, wt, meds, and oral intake every 5 days.
[2021-05-04 12:00] LABS: Glucose Point of Care 147 mg/dl (65-105)
[2021-05-04] MEDS: HYDROcodone/acetaminophen (*CRX) 5-325 MG TABLET 1 TAB PO (13:32)
--- NOTE | 2021-05-04 14:15 | PM.PNPUL ---
Progress Note: A&P Assessment and Plan (1) Acute exacerbation of chronic obstructive airways disease: Code(s): J44.1 - Chronic obstructive pulmonary disease with (acute) exacerbation Status: Acute Assessment and Plan: 04/29 Patient with acute exacerbation of COPD and has improved on IV Solu-Medrol, albuterol nebulizers and inhaled long-acting muscarinic antagonist. There is no evidence of PE on her CT angiogram on 04/27/2021. There is no evidence of pneumonia on her CT scan. she is afebrile with a normal white blood cell count. Rapid COVID antigen test is negative. There are no wheezes on exam today and I will continue this regimen. I will consider changing to p.o. prednisone on 04/30/2021. 04/30 Patient had no wheezes on exam this morning and I will decrease her Solu-Medrol to 20 mg IV Q 12 hours, I will change her increased ellipta to nebulized ipratropium as she feels nebulization gives her better medicine delivery and I will increase the nebulizer frequency to q.4 hours. She was short of breath this morning and she was placed back on her noninvasive ventilator. 05/01 Currently she is on 3 L nasal cannula with saturations 93%. she had no wheezes on exam. She remains on Solu-Medrol 20 mg IV q.12 hours and albuterol and ipratropium nebulizers q.4 hours. Recommend to continue this regimen today and if she is improved tomorrow could consider switching her to prednisone 40 mg p.o. q.day. Will check BNP and echocardiogram To assess LV, RV and valvular function. Patient is on Lasix 40 mg p.o. q.day and is -2 0.5 L since admission.. 05/04/21 patient states she is slowly improving. She denies any wheezing. Patient is currently on 3 L nasal cannula saturations 97%. Chest x-ray on 05/04/2021 demonstrated mild they basilar interstitial infiltrates with no confluent infiltrates. She is feeling better and feels that she may be ready for discharge home tomorrow. I changed her to prednisone 40 mg p.o. today. If patient remains stable overnight she is ready for discharge on these pulmonary medicines on 05/05/2021. Prednisone 40 mg p.o. q.day x4 days Symbicort 160-4.5 mcg at 2 puffs q.12 hours. tiotropium bromide Handy haler 18 mcg at 1 inhalation q.day Rescue albuterol 2 puffs q.i.d. p.r.n. shortness of breath or wheezing noninvasive ventilation with Astral settings of respiratory rate 6 to 10, safety tidal volume 150-650, peep 3-20, pressure support 5-8 and 3 L bleed in. oxygen at rest and with ambulation per formal home O2 assist assessment which I have ordered today (2) Acute on chronic respiratory failure with hypoxia and hypercapnia: Code(s): J96.21 - Acute and chronic respiratory failure with hypoxia; J96.22 - Acute and chronic respiratory failure with hypercapnia Status: Acute Assessment and Plan: 04/29 Patient presented with a blood gas of 7.41/64/77 on 4 L nasal cannula. Patient has COPD with acute on chronic hypercarbic and hypoxemic respiratory failure. Patient would benefit from noninvasive ventilation To prevent subsequent deterioration and further hospitalizations. Patient did not tolerate BiPAP because the pressures were too high. I switched to noninvasive ventilation with an AVAPS mode with a rate of 14, tidal volume 500, EPAP 5, minimal inspiratory pressure 6, maximal inspiratory pressure 30, inspiratory time 1.0, rise 1, 30% FiO2 and she said that this was more comfortable and she may be able to sleep with this tonight. I will order an overnight oximetry to assess her oxygenation and a blood gas prior to removal of the noninvasive ventilator to assess her ventilation. She only wore the mask for 3 hours and the overnight oximetry was good. 04/30 I will continue the above-mentioned noninvasive ventilation with AVAPS mode and check a blood gas in the morning prior to removal. patient had an overnight oximetry on 30% FiO2 with an average saturation of 90 8%. Low satur
[2021-05-04] MEDS: predniSONE 20 MG TABLET 40 MG PO (16:29)
[2021-05-04] MEDS: polyethylene glycoL 3350 17 GM POWD.PACK PO (16:29)
--- NOTE | 2021-05-04 16:30 | PM.PNNEP ---
Progress Note: A&P Assessment and Plan (1) Chronic hyponatremia: Code(s): E87.1 - Hypo-osmolality and hyponatremia Status: Acute Assessment and Plan: The patient has chronic hyponatremia. Her sodium level runs between 129 and 134. TSH is normal. Cortisol level is low but she is on Solu-Medrol. 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 No history of cancer. It is unlikely that years of hyponatremia would be present without an obvious cancer present if this were the cause. Patient has COPD. This is the most likely cause of the chronic hyponatremia Her sodium level is 133 She is drinking less water now. (2) Acute hypercapnic respiratory failure: Code(s): J96.02 - Acute respiratory failure with hypercapnia Status: Acute Assessment and Plan: She is getting supportive care with BiPAP, inhalers, medics. (3) GERD (gastroesophageal reflux disease): Code(s): K21.9 - Gastro-esophageal reflux disease without esophagitis Status: Acute Assessment and Plan: She is on a PPI (4) COPD with emphysema: Code(s): J43.9 - Emphysema, unspecified Status: Acute Assessment and Plan: She is getting supportive care (5) Obstructive sleep apnea: Code(s): G47.33 - Obstructive sleep apnea (adult) (pediatric) Status: Acute Assessment and Plan: She gets a CPAP machine while here but does not use at home. She does not like the BiPAP and it mask. (6) Diastolic dysfunction: Code(s): I51.89 - Other ill-defined heart diseases Status: Acute Assessment and Plan: She is on diuretics. Urine output better yesterday. Subjective Date/time seen: 05/04/21 16:30 Interval history: Patient is feeling about the same today. no shortness of breath Exam Narrative: WDWN in NAD skin no rash head ncat lungs decreased breath sounds at the bases cor reg no rub or gallop abd BS+ nontender and soft ext no edema Objective Data Vital Signs Vital Signs: Vital Signs - 24 hr 05/03/21 20:00 05/03/21 21:53 05/04/21 04:14 Temperature 36.7 C Pulse Rate 98 96 Respiratory Rate 18 20 Blood Pressure 147/68 H Pulse Oximetry 95 95 05/04/21 05:31 05/04/21 08:49 05/04/21 09:00 Temperature 36.4 C Pulse Rate 93 Respiratory Rate 20 Blood Pressure 150/80 H Pulse Oximetry 97 65 L 95 05/04/21 10:11 05/04/21 13:26 05/04/21 13:33 Temperature Pulse Rate 94 82 85 Respiratory Rate 20 20 20 Blood Pressure Pulse Oximetry 95 05/04/21 14:00 05/04/21 16:25 Temperature 36.3 C L Pulse Rate 99 88 Respiratory Rate 14 20 Blood Pressure 132/63 Pulse Oximetry 98 Intake/Output Intake/Output: Intake & Output 05/01/21 05/02/21 05/03/21 05/04/21 23:59 23:59 23:59 23:59 Intake Total 1260 1200 1510 480 Output Total 5179 1722 2250 1000 [facility] -[phone] Meds/Results Medications: Active Medications Generic Name Dose Route Start Last Admin Trade Name Freq PRN Reason Stop Dose Admin Acetaminophen 650 mg 04/27/21 01:25 04/28/21 22:56 Acetaminophen 325 Mg Tablet PO 650 mg Q4H PRN Administration Mild Pain (1-3) or Fever Hydrocodone Bitart/Acetaminophen 1 tab 04/27/21 01:25 05/04/21 13:32 Hydrocodone/Acetaminophen (*Crx) 5-325 Mg Tablet PO 1 tab Q4H PRN Administration Pain Rated 4-6 Albuterol 2 puff 04/27/21 10:56 Albuterol Sulfate (*Sp) Aerosol 1 Puff INHALATION QID PRN shortness of breath or wheezing Albuterol 2.5 mg 04/30/21 16:00 05/04/21 16:25 Albuterol Sulfate Neb 2.5 Mg/0.5 Ml Inh INHALATION 2.5 mg Q4HRT RAISSA Administration Amlodipine Besylate 5 mg 05/02/21 09:00 05/04/21 08:40 Amlodipine Besylate 5 Mg Tablet PO 5 mg QAM RAISSA Administration Calcium Carbonate 200 mg 05/02/21 13:17 05/02/21 13:49 Calcium Carbonate (Tums) 500 Mg (200 Mg Elemental) PO 200 mg Q4H PRN Administration Indigesti
[2021-05-04 17:02] LABS: Glucose Point of Care 166 mg/dl (65-105)
[2021-05-04 21:11] LABS: Glucose Point of Care 180 mg/dl (65-105)
[2021-05-04] MEDS: oxyCODONE/ACETAMINOPHEN (*CRX) 5-325 MG TABLET 1 TABLET PO (22:57)
[2021-05-05] VITALS (20 sets, daily range): BP systolic 122–154; BP diastolic 49–74; PULSE 82–98; RESP 18–22; TEMP 36.5–37; O2SAT 87–100
[2021-05-05] MEDS: IPRATROPIUM BR 0.02% INH SOLN 0.5 MG/2.5 ML VIAL INHALATION ×5 (00:03→21:09)
[2021-05-05] MEDS: ALBUTEROL SULFATE NEB 2.5 MG/0.5 ML INH INHALATION ×5 (00:03→21:08)
[2021-05-05 07:18] LABS: Alanine Aminotransferase 91 U/L (4-35); Albumin Level 3.9 g/dL (3.5-5.1); Alkaline Phosphatase 75 U/L (38-126); Aspartate Amino Transferase 40 U/L (14-36); Bilirubin,Total 0.5 mg/dL (0.2-1.3); Blood Urea Nitrogen 41 mg/dL (7-17); Calcium 9.7 mg/dL (8.4-10.2); Carbon Dioxide > 40 mmol/L (22-30); Chloride 84 mmol/L (98-107); Estimated CRCL calculation 48 ml/min; Estimated Glomerular Filt Rate > 60; Glucose 156 mg/dL (65-110); Potassium 4.4 mmol/L (3.4-5.0); Sodium 133 mmol/L (137-145)
[2021-05-05 07:26] LABS: Basophils Percent Auto 0.1 % (0.2-1.2); Hematocrit 40.6 % (37.0-47.0); Hemoglobin 12.7 g/dL (12.0-15.0); Immature Granulocyte Absolute 0.13 K/mm3 (0.00-0.031); Immature Granulocyte Percent A 0.9 % (0-0.5); Lymphocytes Absolute Auto 0.51 K/mm3 (0.9-3.2); Lymphocytes Percent Auto 3.6 % (18.3-44.2); Mean Corpuscular HGB Conc 31.3 g/dl (32-36); Mean Corpuscular Hemoglobin 27.4 pg (26-34); Mean Corpuscular Volume 87.5 fl (80-100); Mean Platelet Volume 10.5 fl (7.4-10.4); Monocytes Absolute Auto 0.9 K/mm3 (0.1-0.6); Monocytes Percent Auto 6.2 % (2.6-8.5); Neutrophils Absolute Auto 12.5 K/mm3 (1.3-6.7); Neutrophils Percent Auto 89.2 % (45.5-73.1); Platelet Count Result 329 k/mm3 (150-375); Red Blood Count 4.64 M/mm3 (4.2-5.4); Red Cell Distribution Width 14.1 % (11.5-14.5)
--- NOTE | 2021-05-05 09:38 | PM.PNPUL ---
Progress Note: A&P Assessment and Plan (1) Acute exacerbation of chronic obstructive airways disease: Code(s): J44.1 - Chronic obstructive pulmonary disease with (acute) exacerbation Status: Acute Assessment and Plan: 04/29 Patient with acute exacerbation of COPD and has improved on IV Solu-Medrol, albuterol nebulizers and inhaled long-acting muscarinic antagonist. There is no evidence of PE on her CT angiogram on 04/27/2021. There is no evidence of pneumonia on her CT scan. she is afebrile with a normal white blood cell count. Rapid COVID antigen test is negative. There are no wheezes on exam today and I will continue this regimen. I will consider changing to p.o. prednisone on 04/30/2021. 04/30 Patient had no wheezes on exam this morning and I will decrease her Solu-Medrol to 20 mg IV Q 12 hours, I will change her increased ellipta to nebulized ipratropium as she feels nebulization gives her better medicine delivery and I will increase the nebulizer frequency to q.4 hours. She was short of breath this morning and she was placed back on her noninvasive ventilator. 05/01 Currently she is on 3 L nasal cannula with saturations 93%. she had no wheezes on exam. She remains on Solu-Medrol 20 mg IV q.12 hours and albuterol and ipratropium nebulizers q.4 hours. Recommend to continue this regimen today and if she is improved tomorrow could consider switching her to prednisone 40 mg p.o. q.day. Will check BNP and echocardiogram To assess LV, RV and valvular function. Patient is on Lasix 40 mg p.o. q.day and is -2 0.5 L since admission.. 05/04/21 patient states she is slowly improving. She denies any wheezing. Patient is currently on 3 L nasal cannula saturations 97%. Chest x-ray on 05/04/2021 demonstrated mild they basilar interstitial infiltrates with no confluent infiltrates. She is feeling better and feels that she may be ready for discharge home tomorrow. I changed her to prednisone 40 mg p.o. today. 05/05 patient did well overnight. She is currently on 3 L nasal cannula saturations 99%. She is ready for discharge today. From a pulmonary perspective she is ready for discharge on these pulmonary medicines: Prednisone 40 mg p.o. q.day x 3 days Symbicort 160-4.5 mcg at 2 puffs q.12 hours. tiotropium bromide Handy haler 18 mcg at 1 inhalation q.day Rescue albuterol 2 puffs q.i.d. p.r.n. shortness of breath or wheezing noninvasive ventilation with Astral settings of respiratory rate 6 to 10, safety tidal volume 150-650, peep 3-20, pressure support 5-8 and 3 L bleed in to be set up through [facility]. oxygen at rest and with ambulation per formal home O2 assist assessment which I have ordered today Follow-up in Pulmonary Clinic in 3-4 weeks. I have given her our business card and informed our assembler watch train. Discussed with Dr. Cantu. (2) Acute on chronic respiratory failure with hypoxia and hypercapnia: Code(s): J96.21 - Acute and chronic respiratory failure with hypoxia; J96.22 - Acute and chronic respiratory failure with hypercapnia Status: Acute Assessment and Plan: 04/29 Patient presented with a blood gas of 7.41/64/77 on 4 L nasal cannula. Patient has COPD with acute on chronic hypercarbic and hypoxemic respiratory failure. Patient would benefit from noninvasive ventilation To prevent subsequent deterioration and further hospitalizations. Patient did not tolerate BiPAP because the pressures were too high. I switched to noninvasive ventilation with an AVAPS mode with a rate of 14, tidal volume 500, EPAP 5, minimal inspiratory pressure 6, maximal inspiratory pressure 30, inspiratory time 1.0, rise 1, 30% FiO2 and she said that this was more comfortable and she may be able to sleep with this tonight. I will order an overnight oximetry to assess her oxygenation and a blood gas prior to removal of the noninvasive ventilator to assess her ventilation. She only wore the mask for 3 hour
[2021-05-05] MEDS: CHOLECALCIFEROL 1,000 UNITS TABLET 5000 UNITS PO (09:59)
[2021-05-05] MEDS: predniSONE 20 MG TABLET 40 MG PO (10:00)
[2021-05-05] MEDS: FUROSEMIDE 40 MG TABLET PO (10:00)
[2021-05-05] MEDS: OPTI-GEN TAB 1 TABLET PO ×2 (10:00→17:05)
[2021-05-05] MEDS: SODIUM CHLORIDE 1 GM TABLET PO (10:00)
[2021-05-05] MEDS: POTASSIUM CHLORIDE 10 MEQ TABLET.ER PO (10:01)
[2021-05-05] MEDS: oxyCODONE/ACETAMINOPHEN (*CRX) 5-325 MG TABLET 1 TABLET PO ×2 (10:01→17:05)
[2021-05-05] MEDS: CELECOXIB 100 MG CAPSULE PO (10:01)
[2021-05-05] MEDS: PANTOPRAZOLE 40 MG TABLET PO (10:01)
[2021-05-05] MEDS: ENALAPRIL MALEATE 10 MG TABLET PO ×2 (10:01→22:27)
[2021-05-05] MEDS: amLODIPine BESYLATE 5 MG TABLET PO (10:01)
[2021-05-05] MEDS: HEPARIN SODIUM 5,000 UNITS/ML VIAL 5000 UNITS SUB-Q ×2 (10:05→22:32)
[2021-05-05] MEDS: LORATADINE/PSEUDOEPHEDRINE (*CRX) 10/240 MG TABLET ER 24 HR 1 TAB PO (10:05)
[2021-05-05 10:21] LABS: Glucose Point of Care 147 mg/dl (65-105)
--- NOTE | 2021-05-05 10:54 | PCRCNOTE ---
Window of time for administration has passed. See next scheduled administration.
[2021-05-05 11:46] LABS: Glucose Point of Care 128 mg/dl (65-105)
--- NOTE | 2021-05-05 14:28 | PCRCNOTE ---
Home O2 eval attempted, pt unable to walk at this time. Pt too confused to safely ambulate. Pt is being set up with [facility] unit with Ollie. Currently wears 3 L O2 continuously. Sats 95 on 3L.
[2021-05-05] MEDS: polyethylene glycoL 3350 17 GM POWD.PACK PO (16:17)
[2021-05-05] MEDS: DOCUSATE SODIUM 100 MG CAPSULE PO (16:17)
--- NOTE | 2021-05-05 16:27 | PM.IMPN ---
Progress Note: A&P Assessment and Plan (1) Acute on chronic respiratory failure with hypoxia and hypercapnia: Code(s): J96.21 - Acute and chronic respiratory failure with hypoxia; J96.22 - Acute and chronic respiratory failure with hypercapnia Status: Acute Assessment and Plan: Patient is currently using BiPAP on p.r.n. basis Try and keep oxygen saturation between 90-94% Supportive care (2) Decompensated COPD with exacerbation (chronic obstructive pulmonary disease): Code(s): J44.1 - Chronic obstructive pulmonary disease with (acute) exacerbation Status: Acute Assessment and Plan: Breathing treatments Systemic steroids Non productive cough No sputum production or change in sputum quality (3) Obstructive sleep apnea: Code(s): G47.33 - Obstructive sleep apnea (adult) (pediatric) Status: Acute Assessment and Plan: Patient not currently using CPAP at nighttime (4) Aortic stenosis: Code(s): I35.0 - Nonrheumatic aortic (valve) stenosis Status: Acute Assessment and Plan: Pre lower and post low dependent Continue to monitor Caution with fluids (5) Chronic hyponatremia: Code(s): E87.1 - Hypo-osmolality and hyponatremia Status: Acute Assessment and Plan: Continue to monitor (6) Chronic diastolic (congestive) heart failure: Onset Date: Unknown Code(s): I50.32 - Chronic diastolic (congestive) heart failure Status: Chronic Assessment and Plan: Will obtain echocardiogram in a.m. Give a trial Lasix. (7) GERD (gastroesophageal reflux disease): Code(s): K21.9 - Gastro-esophageal reflux disease without esophagitis Status: Acute Assessment and Plan: PPI as needed (8) Morbid obesity with BMI of 40.0-44.9, adult: Code(s): E66.01 - Morbid (severe) obesity due to excess calories; Z68.41 - Body mass index [BMI] 40.0-44.9, adult Status: Acute Assessment and Plan: Calorie restricted diet Additional Plan 04/27/2021 Will continue with BiPAP support, pulmonary consult order. Will also consult social sciences lecturer for retirement placement. 04/28/2021 Will continue BiPAP support . Patient's sodium is low will consult Nephrology . Physical therapy to see patient . Monitor labs in the morning. 04/29/2021 Nephrology consult noted, patient was started on now sodium tablets to increase the sodium. Patient is feeling slightly better today, will continue with BiPAP and monitor CO2. Possible discharge in next couple of days. Start physical therapy 04/30/2021 Patient is improving gradually. Plan is to continue BiPAP was and increase activity as tolerated. 05/01/2021 Patient still requiring BiPAP. Patient BNP slightly high. Will give a IV Lasix 1 dose in the increase the p.o. Lasix to 40 p.o. q.day . Check echo for LV function. Otherwise continue current plan of care and treatment. May 02, 2021 Patient is slightly better today . Plan is to continue current plan of care and treatment. Use BiPAP as needed. Increase activity. May 03, 2021 Patient is feeling slightly better today. Still using BiPAP on intermittent basis. Plan is to increase activity and continue current treatment. Consult care coordination for rehab placement. May 04, 2021 No new overnight issues. Plan is to continue treatment with intermittent BiPAP use. Increase activity as tolerated. Consult geriatric care manager for rehab placement. 05/05/21 16:27 patient with acute on chronic respiratory failure chronically hypercarbic on BiPAP, patient is seen by pulmonology and patient symptoms have improved I discussed with the detector car operator and plan was to discharge the patient today however patient remains clinically stable but has not had BM for 3 days and states not passing any gas, KUB was done which showed moderate amount of stool and constipation will give the patient MiraLax and Colace will continue to monitor and further recommendati
[2021-05-05 16:54] LABS: Glucose Point of Care 121 mg/dl (65-105)
[2021-05-06] VITALS (7 sets, daily range): BP systolic 152; BP diastolic 72; PULSE 80–89; RESP 18–20; TEMP 36.4; O2SAT 95–100
[2021-05-06 02:03] LABS: Glucose Point of Care 145 mg/dl (65-105)
--- NOTE | 2021-05-06 04:22 | PCRCNOTE ---
Window of time for administration has passed. See next scheduled administration.
[2021-05-06] MEDS: ALBUTEROL SULFATE NEB 2.5 MG/0.5 ML INH INHALATION ×2 (04:23→08:24)
[2021-05-06] MEDS: IPRATROPIUM BR 0.02% INH SOLN 0.5 MG/2.5 ML VIAL INHALATION ×2 (04:24→08:24)
[2021-05-06 08:11] LABS: Glucose Point of Care 108 mg/dl (65-105)
[2021-05-06] MEDS: predniSONE 20 MG TABLET 40 MG PO (09:10)
[2021-05-06] MEDS: FUROSEMIDE 40 MG TABLET PO (09:10)
[2021-05-06] MEDS: CELECOXIB 100 MG CAPSULE PO (09:10)
[2021-05-06] MEDS: ENALAPRIL MALEATE 10 MG TABLET PO (09:10)
[2021-05-06] MEDS: POTASSIUM CHLORIDE 10 MEQ TABLET.ER PO (09:10)
[2021-05-06] MEDS: PANTOPRAZOLE 40 MG TABLET PO (09:10)
[2021-05-06] MEDS: OPTI-GEN TAB 1 TABLET PO (09:10)
[2021-05-06] MEDS: amLODIPine BESYLATE 5 MG TABLET PO (09:10)
[2021-05-06] MEDS: CHOLECALCIFEROL 1,000 UNITS TABLET 5000 UNITS PO (09:10)
[2021-05-06] MEDS: SODIUM CHLORIDE 1 GM TABLET PO (09:13)
[2021-05-06] MEDS: LORATADINE/PSEUDOEPHEDRINE (*CRX) 10/240 MG TABLET ER 24 HR 1 TAB PO (09:13)
[2021-05-06] MEDS: HEPARIN SODIUM 5,000 UNITS/ML VIAL 5000 UNITS SUB-Q (09:15)
--- NOTE | 2021-05-06 09:54 | PM.DS ---
DS: Admitting Diagnosis Discharge Date 05/06/2021 Admitting Diagnosis shortness of breath DS: Discharge Diagnosis Discharge Diagnosis (1) Acute on chronic respiratory failure with hypoxia and hypercapnia: Code(s): J96.21 - Acute and chronic respiratory failure with hypoxia; J96.22 - Acute and chronic respiratory failure with hypercapnia Status: Acute Assessment and Plan: Patient is currently using BiPAP on p.r.n. basis Try and keep oxygen saturation between 90-94% Supportive care (2) Decompensated COPD with exacerbation (chronic obstructive pulmonary disease): Code(s): J44.1 - Chronic obstructive pulmonary disease with (acute) exacerbation Status: Acute Assessment and Plan: Breathing treatments Systemic steroids Non productive cough No sputum production or change in sputum quality (3) Obstructive sleep apnea: Code(s): G47.33 - Obstructive sleep apnea (adult) (pediatric) Status: Acute Assessment and Plan: Patient not currently using CPAP at nighttime (4) Aortic stenosis: Code(s): I35.0 - Nonrheumatic aortic (valve) stenosis Status: Acute Assessment and Plan: Pre lower and post low dependent Continue to monitor Caution with fluids (5) Chronic hyponatremia: Code(s): E87.1 - Hypo-osmolality and hyponatremia Status: Acute Assessment and Plan: Continue to monitor (6) Chronic diastolic (congestive) heart failure: Onset Date: Unknown Code(s): I50.32 - Chronic diastolic (congestive) heart failure Status: Chronic Assessment and Plan: Will obtain echocardiogram in a.m. Give a trial Lasix. (7) GERD (gastroesophageal reflux disease): Code(s): K21.9 - Gastro-esophageal reflux disease without esophagitis Status: Acute Assessment and Plan: PPI as needed (8) Morbid obesity with BMI of 40.0-44.9, adult: Code(s): E66.01 - Morbid (severe) obesity due to excess calories; Z68.41 - Body mass index [BMI] 40.0-44.9, adult Status: Acute Assessment and Plan: Calorie restricted diet DS: Summary Hospital Course Reason for hospitalization: Chief Complaint: Shortness of breath. Narrative: This is an 80-year-old female with past medical history significant for COPD/emphysema, chronic respiratory failure with hypoxia and hypercapnia, chronic pain syndrome, chronic hyponatremia, chronic diastolic heart failure, aortic stenosis, hypertension, gastroesophageal reflux disease, obstructive sleep apnea noncompliant with CPAP. Patient was brought to the emergency room due to shortness of breath found to be saturating 74% on 6 L of supplemental oxygen by nasal cannula. Preliminary workup was significant for a blood gas with a pCO2 of 63 pH of 7.4 PO2 of 77. At the time of my visit to patient was on BiPAP unable to give much history. Hospital Course: 05/05/21 16:27 patient with acute on chronic respiratory failure chronically hypercarbic on BiPAP, patient is seen by pulmonology and patient symptoms have improved I discussed with the product support engineer and plan was to discharge the patient today however patient remains clinically stable but has not had BM for 3 days and states not passing any gas, KUB was done which showed moderate amount of stool and constipation will give the patient MiraLax and Colace will continue to monitor and further recommendation to follow. patient is clinically stable had a BM, will discharge the patient as instructed by product support engineer. Status at Discharge Functional status at discharge: uses cane/walker Overall status at discharge: patient is back to baseline Time Spent with Patient Time attestation: Total time spent providing and/or coordinating discharge services: Patient was seen and examined at the time of the discharge Condition at discharge is stable Code status: Full code. Time spent preparing discharge summary, discharge medications, discussing discharge planning with case
== END 2021-05-06 11:45 | disposition home health service (06) | DRG 189 ==
LOC: ANHED 04-27 00:25 → ANHIMU 04-27 03:02 → ANH3MEDSUR 05-05 11:19 → ANHIMU 05-11 14:18
PROVIDERS: Internal Medicine; Internal Medicine Nephrology; Internal Medicine Pulmonary Disease; Admitting Provider Internal Medicine; Emergency Provider Emergency Medicine; PCP Internal Medicine; Visit Provider Family Medicine
DX: J96.22 Acute and chronic respiratory failure with hypercapnia; E87.1 Hypo-osmolality and hyponatremia; I50.32 Chronic diastolic (congestive) heart failure; J43.2 Centrilobular emphysema; J96.21 Acute and chronic respiratory failure with hypoxia; K59.00 Constipation, unspecified; E55.9 Vitamin D deficiency, unspecified; E66.01 Morbid (severe) obesity due to excess calories; G89.29 Other chronic pain; G47.33 Obstructive sleep apnea (adult) (pediatric); I87.2 Venous insufficiency (chronic) (peripheral); I35.0 Nonrheumatic aortic (valve) stenosis; I11.0 Hypertensive heart disease with heart failure; K21.9 Gastro-esophageal reflux disease without esophagitis; R73.03 Prediabetes; Z99.81 Dependence on supplemental oxygen; Z87.891 Personal history of nicotine dependence; Z20.822 Contact with and (suspected) exposure to COVID-19; Z68.34 Body mass index [BMI] 34.0-34.9, adult; Z91.19 Patient's noncompliance with other medical treatment and regimen; Z96.651 Presence of right artificial knee joint
CPT/HCPCS: 36415; 36600; 71045; 71275; 74018; 80048; 80053; 80069; 81001; 82375; 82533; 82805; 82948; 83036; 83050; 83735; 83880; 83930; 83935; 84155; 84165; 85025; 87426; 93005; 93306; 94002; 94003; 94640; 94762; 96361; 96374; 96375; 97110; 97163; 97167; 97530; 97535; 99285; A9270; C9803; G0378; J0360; J1644; J1940; J2270; J2920; J2930; J7042; J7512; Q9967

== ENCOUNTER 2021-05-22 21:07 | Inpatient (IN) | payer MEDICARE, SELFPAY ==
[2021-05-22] VITALS (12 sets, daily range): BP systolic 139–191; BP diastolic 66–67; PULSE 88–104; RESP 18–23; TEMP 36.9; O2SAT 91–100
--- NOTE | ~2021-05-22 | XR_ITS ---
EXAMINATION: XR chest 2V 05/25/2021 11:30 INDICATION: Pneumonia. PROCEDURE: 2 view chest COMPARISON: Comparison to multiple prior studies sequentially, with oldest reviewed study dated 04/02. FINDINGS: The lungs are clear. The cardiomediastinal silhouette is within normal limits. There are no pleural effusions. There is no pneumothorax suspected. 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 IMPRESSION: 1: NO ACUTE CARDIOPULMONARY DISEASE. Reviewed, dictated and finalized at location B. POLISHER
--- NOTE | ~2021-05-22 | XR_ITS ---
EXAMINATION: XR chest 1V portable INDICATION: Cough TECHNIQUE: Portable AP chest at 2158 hours COMPARISON: 05/04/2021 FINDINGS: There are minimal airspace opacities of the lung bases. There is no pleural effusion or pne umothorax. The cardiomediastinal silhouette is normal. There is advanced osteoarthritis of the glenoh umeral joints. IMPRESSION: 1. Minimal bibasilar airspace opacities, consistent with atelectasis versus pneumonia. Reviewed, dictated and finalized at location F. [facility] IMAGING DIRECTOR IMPRESSION: 1. Minimal bibasilar airspace opacities, consistent with atelectasis versus pne umonia.
--- NOTE | 2021-05-22 21:14 | PC.NURSE ---
redness bilat lower extremities from knees down states it has been like that for a long time bilat pedal pulses +equal strong
--- NOTE | 2021-05-22 21:17 | ECG_ITS ---
Measurements Intervals [place] Rate: 99 P: 92 LA: 167 QRS: 22 QRSD: 86 T: 57 QT: 295 QTc: 380 Interpretive Statements SINUS RHYTHM BASELINE ARTIFACT- I, II, III, AVR, AVL, AVF, V2-V6 NORMAL ECG Electronically Signed On 05-23-2021 7:06:20 FACE BOSS by Moiz Melton D.O.
--- NOTE | 2021-05-22 21:21 | ED.SOB ---
HPI - SOB/Dyspnea General Chief Complaint: Shortness of Breath/Dyspnea Stated Complaint: COPD SOB X 1 DAY Time Seen by Provider: 05/22/21 21:15 Source: RN notes reviewed History of Present Illness HPI Narrative: Patient presents emergency department from home for shortness of breath. Patient states has been short of breath for the past 2 days states she is normally on 3 L nasal cannula and has had increase her oxygen. States that she has a history of both CHF and COPD states she has not been coughing she denies any fevers or chills chest pain abdominal pain nausea vomiting or any other symptoms when EMS arrived they placed the patient on a nonrebreather which she is currently on states improvement of her breathing at this time Related Data Home Medications Medication Instructions Recorded Confirmed cholecalciferol (vitamin D3) 125 5,000 unit PO DAILY 03/16/19 04/27/21 mcg (5,000 unit) tablet PreserVision AREDS-2 1 tablet PO BID 07/12/19 04/27/21 [place] Nasal 1 spray INTRANASAL Q6H PRN 05/05/20 04/27/21 celecoxib 100 mg PO DAILY 05/05/20 04/27/21 fexofenadine-pseudoephedrine 60 tablet PO BID 05/05/20 04/27/21 [Marzena-D 12 Hour] potassium chloride 10 meq PO DAILY 05/05/20 04/27/21 Spiriva with HandiHaler 1 cap INHALATION DAILY 04/27/21 04/27/21 budesonide-formoterol [Symbicort] 2 puff INHALATION Q12H 04/27/21 04/27/21 calcium carbonate 600 mg PO DAILY 04/27/21 04/27/21 omeprazole 20 mg PO DAILY 04/27/21 04/27/21 oxycodone-acetaminophen 1 tablet PO TID PRN 04/27/21 04/27/21 oxymetazoline-menthol 1 spray INTRANASAL Q12H PRN 04/27/21 04/27/21 Allergies Allergy/AdvReac Type Severity Reaction Status Date / Time aluminum aspirin Allergy Mild pt does Verified 04/27/21 05:30 not know aspirin Allergy Mild rash Verified 04/26/21 23:15 Sulfa (Sulfonamide Allergy Mild THROAT, Verified 04/26/21 23:15 Antibiotics) TONGUE SWELLING,Unknown hydralazine AdvReac Chest Pain Verified 04/27/21 18:11 Review of Systems Review of Systems: Gen.: Denies fevers or chills ENT: Denies congestion Respiratory: See HPI CV: Denies chest pain or palpitations GI: Denies abdominal pain nausea, emesis or diarrhea Musculoskeletal: Denies back pain or muscle pain Neuro: Denies numbness, tingling, weakness or focal weakness Skin: Denies rash Except as documented, all other systems reviewed and negative REPLACED BY [facility] Past Medical History Medical History Abdominal bruit Renal US negative for stenosis 08/2019. Adhesive capsulitis of right shoulder Aortic stenosis Mild on echocardiogram from October 2018. Borderline diabetic The patient stated she is not taking anything for her diabetes and she is not diabetic. Cataracts, bilateral Maturing cataracts bilaterally. Chronic diastolic (congestive) heart failure (Unknown) Echocardiogram October 2018 demonstrated normal left ventricular systolic function with EF of 65-70% grade 1 diastolic dysfunction mild aortic stenosis with a normal RVSP of 34. Chronic hyponatremia Chronic pain syndrome With chronic back, bilateral shoulder, and left knee pain. 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 Diastolic dysfunction Essential (primary) hypertension (Unknown) Fractured coccyx GERD (gastroesophageal reflux disease) History of angina History of tobacco abuse Hyponatremia (Unknown) Insomnia Liver mass 21 mm likely benign noted on imaging for 2017. Liver mass Obstructive sleep apnea Noncompliant with CPAP therapy at home. Thyroid nodule On CT scan from July 2017. Ulcerative colitis Venous stasis dermatitis of both lower extremities Venous stasis ulcer Vitamin D deficiency Surgical History Surgical History History of arthroscopy of left knee (~2000) History of lum
[2021-05-22] MEDS: ALBUTEROL SULFATE NEB 2.5 MG/0.5 ML INH 5 MG INHALATION ×2 (21:38→23:34)
[2021-05-22] MEDS: IPRATROPIUM BR 0.02% INH SOLN 0.5 MG/2.5 ML VIAL INHALATION ×2 (21:38→23:34)
[2021-05-22] MEDS: methylPREDNISolone SOD SUCC 125 MG VIAL IV PUSH (21:40)
[2021-05-22 21:46] LABS: EDCOVIDSCREEN Negative (Negative)
[2021-05-22 21:53] LABS: Base Excess ABG 8.1 mEq/l (+/-2.0); Fractional Inspired Oxygen 28 %; HCO3 ABG 34.6 mEq/l (22.0-26.0); Oxygen Content ABG 16.3 %vol (16.0-22.0); Oxygen Saturation ABG 99.6 % (95.0-100.0); Oxyhemoglobin 98.7 % THb (90.0-100.0); PCO2 ABG 58.5 mmHg (35.0-45.0); PO2 ABG 283.7 mmHg (80.0-100.0); Total Hemoglobin 11.2 g/dL (12.0-18.0)
[2021-05-22 21:55] LABS: Basophils Percent Auto 0.4 % (0.2-1.2); Eosinophils Absolute Auto 0.7 K/mm3 (0-0.3); Eosinophils Percent Auto 10.2 % (0-4.4); Hematocrit 33.9 % (37.0-47.0); Hemoglobin 10.5 g/dL (12.0-15.0); Immature Granulocyte Absolute 0.02 K/mm3 (0.00-0.031); Immature Granulocyte Percent A 0.3 % (0-0.5); Lymphocytes Percent Auto 11.4 % (18.3-44.2); Mean Corpuscular Hemoglobin 28.2 pg (26-34); Mean Corpuscular Volume 90.9 fl (80-100); Mean Platelet Volume 9.5 fl (7.4-10.4); Monocytes Absolute Auto 0.7 K/mm3 (0.1-0.6); Monocytes Percent Auto 10.4 % (2.6-8.5); Neutrophils Absolute Auto 4.7 K/mm3 (1.3-6.7); Neutrophils Percent Auto 67.3 % (45.5-73.1); Platelet Count Result 248 k/mm3 (150-375); Red Blood Count 3.73 M/mm3 (4.2-5.4); Red Cell Distribution Width 13.8 % (11.5-14.5)
[2021-05-22 21:57] LABS: Device NASAL CANNULA; Modified Allen's Test Pass; Site Drawn RIGHT RADIAL
[2021-05-22 22:01] LABS: Prothrombin Time 12.6 Seconds (11.1-14.7)
[2021-05-22 22:02] LABS: Partial Thromboplastin Time 29.3 SECONDS (22.3-36.8)
[2021-05-22 22:03] LABS: Lactic Acid Reflex 0.9 mmol/L (0.7-2.1)
[2021-05-22 22:04] LABS: Alanine Aminotransferase 18 U/L (4-35); Albumin Level 3.7 g/dL (3.5-5.1); Alkaline Phosphatase 86 U/L (38-126); Anion Gap 6 mmol/L (8-16); Aspartate Amino Transferase 20 U/L (14-36); Bilirubin,Total 0.3 mg/dL (0.2-1.3); Blood Urea Nitrogen 14 mg/dL (7-17); Calcium 9.7 mg/dL (8.4-10.2); Carbon Dioxide 38 mmol/L (22-30); Chloride 91 mmol/L (98-107); Estimated CRCL calculation 61 ml/min; Estimated Glomerular Filt Rate > 60; Glucose 131 mg/dL (65-110); Potassium 3.9 mmol/L (3.4-5.0); Sodium 135 mmol/L (137-145)
[2021-05-22 22:16] LABS: NT Pro B Type Natriuretic Pept 354 pg/mL (5-100); Troponin I < 0.012 ng/mL (0.000-0.034)
[2021-05-23] VITALS (13 sets, daily range): BP systolic 144–158; BP diastolic 58–73; PULSE 88–108; RESP 16–21; TEMP 36.4–36.8; O2SAT 94–99; BMI 36.4
--- NOTE | 2021-05-23 00:01 | PM.IMHP ---
H&P: HPI History of Present Illness Date/Time: 05/23/21 00:01 Chief Complaint: Shortness of breath Narrative: This is an 80-year-old female with past medical history significant for COPD/emphysema. Patient presents to the emergency room due to worsening shortness of breath she was recently discharged from the hospital where she was treated for COPD exacerbation. The patient is usually on supplemental oxygen at home. Patient complains of cough productive of greenish sputum, shortness of breath, subjective fevers and chills, poor appetite, denies any nausea, vomiting, abdominal pain or diarrhea. Preliminary workup was significant for a negative COVID test a chest x-ray showed bilateral lung infiltrates. Decision has been made to admit the patient for further evaluation, management and treatment. Review of Systems Review of Systems: Shortness of breath cough productive of green sputum scanty subjective fevers and chills wheezing Constitutional: Constitutional: Reports chills, Reports fatigue, Reports fever(s), Reports poor appetite and Reports weakness Eyes: Eyes: Denies change in vision ENT: Denies dysphagia, Denies vertigo, Denies nasal congestion, Denies nasal discharge, Denies nasal obstruction and Denies odynophagia Cardiovascular: Cardiovascular: Denies leg edema, Denies lightheadedness, Denies radiating jaw, neck or arm pain, Denies palpitations, Denies dyspnea on exertion and Denies orthopnea Respiratory: Respiratory: Reports change in phlegm color, Reports cough and Reports dyspnea Gastrointestinal: Gastrointestinal: Denies abdominal pain, Denies dyspepsia, Denies heartburn, Denies diarrhea, Denies nausea and Denies vomiting Genitourinary: Genitourinary: Denies dysuria Musculoskeletal: Musculoskeletal: Denies arthralgias and Denies joint swelling Integumentary/Breasts: Skin/Breast: Denies rash Neurologic: Denies focal weakness and Denies Sensory deficit (Neuro) Psychiatric: Psychiatric: Reports no additional psychiatric complaints and Reports as per HPI Endocrine: Endocrine: Denies cold intolerance, Denies heat intolerance, Denies polyphagia, Denies polydipsia and Denies palpitations Hematologic/Lymphatic: Hematologic/Lymphatic: Reports no additional hematologic/lymphatic complaints and Reports as per HPI Allergic/Immunologic: Allergic/Immunologic: Reports no additional allergic/immunologic complaints and Reports as per HPI [facility] Past Medical History Medical History Abdominal bruit Renal US negative for stenosis 08/2019. Adhesive capsulitis of right shoulder Aortic stenosis Mild on echocardiogram from October 2018. Borderline diabetic The patient stated she is not taking anything for her diabetes and she is not diabetic. Cataracts, bilateral Maturing cataracts bilaterally. Chronic diastolic (congestive) heart failure (Unknown) Echocardiogram October 2018 demonstrated normal left ventricular systolic function with EF of 65-70% grade 1 diastolic dysfunction mild aortic stenosis with a normal RVSP of 34. Chronic hyponatremia Chronic pain syndrome With chronic back, bilateral shoulder, and left knee pain. 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 Diastolic dysfunction Essential (primary) hypertension (Unknown) Fractured coccyx GERD (gastroesophageal reflux disease) History of angina History of tobacco abuse Hyponatremia (Unknown) Insomnia Liver mass 21 mm likely benign noted on imaging for 2017. Liver mass Obstructive sleep apnea Noncompliant with CPAP therapy at home. Thyroid nodule On CT scan from July 2017. Ulcerative colitis Venous stasis dermatitis of both lower extremities Venous stasis ulcer Vitamin D deficiency Surgical History Surgical History History of arthr
--- NOTE | 2021-05-23 01:59 | ADMGEN ---
This patient, Belinda Black, was admitted to [facility] Room 325-02. Patient/family oriented to hospital policies and general routines including ID bracelet, bed and alarms, visiting hours, pain management, procedures, bathroom and other care routines, personal items, smoking policy, room service/diet, and visiting hours. Information on how to activate the Rapid Response Team has been discussed. Patient/Family are encouraged to report perceived risks to care and to ask questions if they do not understand what they are told or what they should do.
[2021-05-23] MEDS: methylPREDNISolone SOD SUCC 125 MG VIAL 60 MG IV PUSH ×2 (06:01→15:17)
[2021-05-23 06:47] LABS: Basophils Percent Auto 0.4 % (0.2-1.2); Eosinophils Percent Auto 0.2 % (0-4.4); Hematocrit 35.5 % (37.0-47.0); Hemoglobin 10.9 g/dL (12.0-15.0); Immature Granulocyte Absolute 0.02 K/mm3 (0.00-0.031); Immature Granulocyte Percent A 0.4 % (0-0.5); Lymphocytes Absolute Auto 0.43 K/mm3 (0.9-3.2); Mean Corpuscular HGB Conc 30.7 g/dl (32-36); Mean Corpuscular Hemoglobin 27.4 pg (26-34); Mean Corpuscular Volume 89.2 fl (80-100); Mean Platelet Volume 9.8 fl (7.4-10.4); Monocytes Absolute Auto 0.1 K/mm3 (0.1-0.6); Neutrophils Absolute Auto 4.3 K/mm3 (1.3-6.7); Platelet Count Result 257 k/mm3 (150-375); Red Blood Count 3.98 M/mm3 (4.2-5.4); Red Cell Distribution Width 13.5 % (11.5-14.5); White Blood Count 4.8 K/mm3 (4.5-10.0)
[2021-05-23 06:55] LABS: Alanine Aminotransferase 18 U/L (4-35); Albumin Level 3.6 g/dL (3.5-5.1); Alkaline Phosphatase 86 U/L (38-126); Anion Gap 7 mmol/L (8-16); Aspartate Amino Transferase 20 U/L (14-36); Bilirubin,Total 0.2 mg/dL (0.2-1.3); Blood Urea Nitrogen 12 mg/dL (7-17); Calcium 9.5 mg/dL (8.4-10.2); Carbon Dioxide 35 mmol/L (22-30); Chloride 92 mmol/L (98-107); Estimated CRCL calculation 72 ml/min; Estimated Glomerular Filt Rate > 60; Glucose 254 mg/dL (65-110); Potassium 4.2 mmol/L (3.4-5.0); Sodium 134 mmol/L (137-145)
[2021-05-23] MEDS: IPRATROPIUM BR 0.02% INH SOLN 0.5 MG/2.5 ML VIAL INHALATION ×3 (08:15→20:28)
[2021-05-23] MEDS: FLUTICASONE/SALMETEROL 115-21 MCG INHALER 1 PUFF 2 PUFF INHALATION ×2 (08:20→20:28)
[2021-05-23] MEDS: ALBUTEROL SULFATE NEB 2.5 MG/0.5 ML INH 5 MG INHALATION ×3 (08:25→20:28)
[2021-05-23 09:18] LABS: Glucose Point of Care 177 mg/dl (65-105)
[2021-05-23] MEDS: OPTI-GEN TAB 1 TABLET PO (09:21)
[2021-05-23] MEDS: predniSONE 20 MG TABLET 40 MG PO (09:22)
[2021-05-23] MEDS: CALCIUM CARBONATE (OSCAL) 500 MG TABLET PO (09:22)
[2021-05-23] MEDS: ENALAPRIL MALEATE 10 MG TABLET PO ×2 (09:22→21:11)
[2021-05-23] MEDS: PANTOPRAZOLE 40 MG TABLET PO (09:22)
[2021-05-23] MEDS: FUROSEMIDE 40 MG TABLET PO (09:22)
[2021-05-23] MEDS: SODIUM CHLORIDE 1 GM TABLET PO (09:22)
[2021-05-23] MEDS: amLODIPine BESYLATE 5 MG TABLET PO (09:22)
[2021-05-23] MEDS: NITROFURANTOIN MONOHYD MACROCR 100 MG CAP PO ×2 (09:22→21:11)
[2021-05-23] MEDS: LORATADINE/PSEUDOEPHEDRINE (*CRX) 10/240 MG TABLET ER 24 HR 1 TAB PO (09:26)
--- NOTE | 2021-05-23 10:58 | PM.IMPN ---
Progress Note: A&P Assessment and Plan (1) Pneumonia: Code(s): J18.9 - Pneumonia, unspecified organism Status: Acute Assessment and Plan: Admit to regular medical floor Patient started on cefepime and vancomycin and Zithromax due to recent hospitalization Cultures in progress HPI: This is an 80-year-old female with past medical history significant for COPD/emphysema. Patient presents to the emergency room due to worsening shortness of breath she was recently discharged from the hospital where she was treated for COPD exacerbation. The patient is usually on supplemental oxygen at home. Patient complains of cough productive of greenish sputum, shortness of breath, subjective fevers and chills, poor appetite, denies any nausea, vomiting, abdominal pain or diarrhea. Preliminary workup was significant for a negative COVID test a chest x-ray showed bilateral lung infiltrates. Decision has been made to admit the patient for further evaluation, management and treatment. 05/23/2021 interval history: patient 80-year-old female with history of COPD emphysema patient recently discharged after see was treated for pneumonia no presented with complaint of cough and shortness of breath suspect patient has healthcare associated pneumonia and being treated with vancomycin, cefepime, and azithromycin, as well as exam patient of COPD will continue oral prednisone and provide with DuoNeb, currently patient states feeling much better however continue to complain of chronic pain, will continue present management will have a PT OT evaluate the patient, the chest x-rays in 2 days and further recommendation to follow. (2) Decompensated COPD with exacerbation (chronic obstructive pulmonary disease): Code(s): J44.1 - Chronic obstructive pulmonary disease with (acute) exacerbation Status: Acute Assessment and Plan: Continue prednisone p.o. Breathing treatments Supportive care Pulmonology consult (3) Chronic hypercapnic respiratory failure: Code(s): J96.12 - Chronic respiratory failure with hypercapnia Status: Acute Assessment and Plan: Continue supplemental oxygen (4) Obstructive sleep apnea: Code(s): G47.33 - Obstructive sleep apnea (adult) (pediatric) Status: Acute Assessment and Plan: Recommendation for noninvasive ventilation Patient cannot tolerate BiPAP (5) Aortic stenosis: Code(s): I35.0 - Nonrheumatic aortic (valve) stenosis Status: Acute Assessment and Plan: Unchanged Continue to monitor Subjective Date/time seen: 05/23/21 10:58 HPI: This is an 80-year-old female with past medical history significant for COPD/emphysema. Patient presents to the emergency room due to worsening shortness of breath she was recently discharged from the hospital where she was treated for COPD exacerbation. The patient is usually on supplemental oxygen at home. Patient complains of cough productive of greenish sputum, shortness of breath, subjective fevers and chills, poor appetite, denies any nausea, vomiting, abdominal pain or diarrhea. Preliminary workup was significant for a negative COVID test a chest x-ray showed bilateral lung infiltrates. Decision has been made to admit the patient for further evaluation, management and treatment. 05/23/2021 interval history: patient 80-year-old female with history of COPD emphysema patient recently discharged after see was treated for pneumonia no presented with complaint of cough and shortness of breath suspect patient has healthcare associated pneumonia and being treated with vancomycin, cefepime, and azithromycin, as well as exam patient of COPD will continue oral prednisone and provide with DuoNeb, currently patient states feeling much better however continue to complain of chronic pain, will continue present management will have a PT OT evaluate the patient, the chest x-rays in 2 days and further recommendation to follow. Review of Systems R
[2021-05-23 12:10] LABS: Glucose Point of Care 196 mg/dl (65-105)
--- NOTE | 2021-05-23 15:53 | PCOTNOTE ---
Attempted to evaluate pt. for occupational therapy evaluation. Pt. refused to participate in therapy at this time d/t fatigue and pain
[2021-05-23 17:09] LABS: Glucose Point of Care 173 mg/dl (65-105)
[2021-05-23] MEDS: oxyCODONE/ACETAMINOPHEN (*CRX) 5-325 MG TABLET 1 TABLET PO (21:11)
[2021-05-24] VITALS (10 sets, daily range): BP systolic 117–162; BP diastolic 56–69; PULSE 62–108; RESP 16–22; TEMP 36.4–37.4; O2SAT 94–100
[2021-05-24] MEDS: methylPREDNISolone SOD SUCC 125 MG VIAL 60 MG IV PUSH ×4 (01:36→21:38)
[2021-05-24] MEDS: IPRATROPIUM BR 0.02% INH SOLN 0.5 MG/2.5 ML VIAL INHALATION ×4 (02:40→20:54)
[2021-05-24] MEDS: ALBUTEROL SULFATE NEB 2.5 MG/0.5 ML INH 5 MG INHALATION ×4 (02:40→20:54)
[2021-05-24] MEDS: OPTI-GEN TAB 1 TABLET PO ×2 (08:19→16:40)
[2021-05-24] MEDS: amLODIPine BESYLATE 5 MG TABLET PO (08:19)
[2021-05-24] MEDS: FUROSEMIDE 40 MG TABLET PO (08:19)
[2021-05-24] MEDS: NITROFURANTOIN MONOHYD MACROCR 100 MG CAP PO ×2 (08:20→21:38)
[2021-05-24] MEDS: CALCIUM CARBONATE (OSCAL) 500 MG TABLET PO (08:20)
[2021-05-24] MEDS: predniSONE 20 MG TABLET 40 MG PO (08:20)
[2021-05-24] MEDS: PANTOPRAZOLE 40 MG TABLET PO (08:20)
[2021-05-24] MEDS: SODIUM CHLORIDE 1 GM TABLET PO (08:20)
[2021-05-24] MEDS: ENALAPRIL MALEATE 10 MG TABLET PO ×2 (08:20→21:38)
[2021-05-24 08:21] LABS: Glucose Point of Care 191 mg/dl (65-105)
[2021-05-24] MEDS: LORATADINE/PSEUDOEPHEDRINE (*CRX) 10/240 MG TABLET ER 24 HR 1 TAB PO (08:24)
[2021-05-24] MEDS: UMECLIDINIUM BROMIDE 62.5 MCG ELLIPTA 1 PUFF INHALATION ×2 (10:18→13:46)
--- NOTE | 2021-05-24 10:19 | PCRCNOTE ---
Window of time for administration has passed. See next scheduled administration.
--- NOTE | 2021-05-24 12:08 | PM.IMPN ---
Progress Note: A&P Assessment and Plan (1) Pneumonia: Code(s): J18.9 - Pneumonia, unspecified organism Status: Acute Assessment and Plan: Admit to regular medical floor Patient started on cefepime and vancomycin and Zithromax due to recent hospitalization Cultures in progress HPI: This is an 80-year-old female with past medical history significant for COPD/emphysema. Patient presents to the emergency room due to worsening shortness of breath she was recently discharged from the hospital where she was treated for COPD exacerbation. The patient is usually on supplemental oxygen at home. Patient complains of cough productive of greenish sputum, shortness of breath, subjective fevers and chills, poor appetite, denies any nausea, vomiting, abdominal pain or diarrhea. Preliminary workup was significant for a negative COVID test a chest x-ray showed bilateral lung infiltrates. Decision has been made to admit the patient for further evaluation, management and treatment. 05/23/2021 interval history: patient 80-year-old female with history of COPD emphysema patient recently discharged after see was treated for pneumonia no presented with complaint of cough and shortness of breath suspect patient has healthcare associated pneumonia and being treated with vancomycin, cefepime, and azithromycin, as well as exam patient of COPD will continue oral prednisone and provide with DuoNeb, currently patient states feeling much better however continue to complain of chronic pain, will continue present management will have a PT OT evaluate the patient, the chest x-rays in 2 days and further recommendation to follow. 05/24/2021 interval history: patient 80-year-old female with history of COPD emphysema patient recently discharged after see was treated for pneumonia no presented with complaint of cough and shortness of breath suspect patient has healthcare associated pneumonia and being treated with vancomycin, cefepime, and azithromycin, as well as exacerbate patient of COPD will continue oral prednisone and provide with DuoNeb, currently patient states feeling much better however continue to complain of chronic pain, will continue present management will have a PT OT evaluate the patient, the chest x-rays tomorrow and further recommendation to follow. (2) Decompensated COPD with exacerbation (chronic obstructive pulmonary disease): Code(s): J44.1 - Chronic obstructive pulmonary disease with (acute) exacerbation Status: Acute Assessment and Plan: Continue prednisone p.o. Breathing treatments Supportive care Pulmonology consult (3) Chronic hypercapnic respiratory failure: Code(s): J96.12 - Chronic respiratory failure with hypercapnia Status: Acute Assessment and Plan: Continue supplemental oxygen (4) Obstructive sleep apnea: Code(s): G47.33 - Obstructive sleep apnea (adult) (pediatric) Status: Acute Assessment and Plan: Recommendation for noninvasive ventilation Patient cannot tolerate BiPAP (5) Aortic stenosis: Code(s): I35.0 - Nonrheumatic aortic (valve) stenosis Status: Acute Assessment and Plan: Unchanged Continue to monitor Subjective Date/time seen: 05/24/21 12:08 HPI: This is an 80-year-old female with past medical history significant for COPD/emphysema. Patient presents to the emergency room due to worsening shortness of breath she was recently discharged from the hospital where she was treated for COPD exacerbation. The patient is usually on supplemental oxygen at home. Patient complains of cough productive of greenish sputum, shortness of breath, subjective fevers and chills, poor appetite, denies any nausea, vomiting, abdominal pain or diarrhea. Preliminary workup was significant for a negative COVID test a chest x-ray showed bilateral lung infiltrates. Decision has been made to admit the patient for further evaluation, management and treatment. 05/23/2021 int
[2021-05-24 12:23] LABS: Glucose Point of Care 211 mg/dl (65-105)
[2021-05-24] MEDS: FLUTICASONE/SALMETEROL 115-21 MCG INHALER 1 PUFF 2 PUFF INHALATION ×2 (13:46→20:54)
[2021-05-24] MEDS: oxyCODONE/ACETAMINOPHEN (*CRX) 5-325 MG TABLET 1 TABLET PO (17:17)
[2021-05-25] VITALS (15 sets, daily range): BP systolic 156–161; BP diastolic 63–76; PULSE 80–115; RESP 16–30; TEMP 36.9–37; O2SAT 87–99
[2021-05-25] MEDS: ALBUTEROL SULFATE NEB 2.5 MG/0.5 ML INH 5 MG INHALATION ×4 (02:34→20:06)
[2021-05-25] MEDS: IPRATROPIUM BR 0.02% INH SOLN 0.5 MG/2.5 ML VIAL INHALATION ×4 (02:34→20:06)
[2021-05-25] MEDS: methylPREDNISolone SOD SUCC 125 MG VIAL 60 MG IV PUSH ×3 (05:40→22:27)
[2021-05-25 08:18] LABS: Glucose Point of Care 173 mg/dl (65-105)
[2021-05-25] MEDS: FUROSEMIDE 40 MG TABLET PO (08:54)
[2021-05-25] MEDS: OPTI-GEN TAB 1 TABLET PO ×2 (08:54→16:16)
[2021-05-25] MEDS: predniSONE 20 MG TABLET 40 MG PO (08:54)
[2021-05-25] MEDS: SODIUM CHLORIDE 1 GM TABLET PO (08:55)
[2021-05-25] MEDS: PANTOPRAZOLE 40 MG TABLET PO (08:55)
[2021-05-25] MEDS: ENALAPRIL MALEATE 10 MG TABLET PO ×2 (08:55→22:27)
[2021-05-25] MEDS: amLODIPine BESYLATE 5 MG TABLET PO (08:55)
[2021-05-25] MEDS: NITROFURANTOIN MONOHYD MACROCR 100 MG CAP PO ×2 (08:55→22:26)
[2021-05-25] MEDS: CALCIUM CARBONATE (OSCAL) 500 MG TABLET PO (08:55)
[2021-05-25] MEDS: UMECLIDINIUM BROMIDE 62.5 MCG ELLIPTA 1 PUFF INHALATION (09:17)
[2021-05-25] MEDS: FLUTICASONE/SALMETEROL 115-21 MCG INHALER 1 PUFF 2 PUFF INHALATION ×2 (09:17→20:06)
[2021-05-25 09:39] LABS: Hematocrit 35.1 % (37.0-47.0); Mean Corpuscular HGB Conc 31.3 g/dl (32-36); Mean Corpuscular Hemoglobin 27.7 pg (26-34); Mean Corpuscular Volume 88.4 fl (80-100); Mean Platelet Volume 9.4 fl (7.4-10.4); Platelet Count Result 398 k/mm3 (150-375); Red Blood Count 3.97 M/mm3 (4.2-5.4); Red Cell Distribution Width 13.8 % (11.5-14.5); White Blood Count 9.1 K/mm3 (4.5-10.0)
[2021-05-25] MEDS: LORATADINE/PSEUDOEPHEDRINE (*CRX) 10/240 MG TABLET ER 24 HR 1 TAB PO (09:40)
[2021-05-25 09:50] LABS: Anion Gap 8 mmol/L (8-16); Blood Urea Nitrogen 25 mg/dL (7-17); Calcium 9.6 mg/dL (8.4-10.2); Carbon Dioxide 39 mmol/L (22-30); Chloride 85 mmol/L (98-107); Estimated CRCL calculation 53 ml/min; Estimated Glomerular Filt Rate > 60; Glucose 174 mg/dL (65-110); Potassium 3.4 mmol/L (3.4-5.0); Sodium 132 mmol/L (137-145)
[2021-05-25 10:28] LABS: Vancomycin Trough 11.6 ug/mL (10.0-20.0)
[2021-05-25 11:51] LABS: Glucose Point of Care 208 mg/dl (65-105)
--- NOTE | 2021-05-25 12:31 | PC.NURSE ---
Spoke with pt , reported clear cxr from this morning, pt voiced concerns about home Trilogy non-invasive ventilator orders for home ventilator and was requesting Toro Barnes to look at the orders for Trilogy settings. Pt is not on Trilogy during hospital stay, informed MD Mayes of husbands request.
--- NOTE | 2021-05-25 14:04 | PC.NURSE ---
called PFT lab for home o2 evaulation. Message left to call back.
--- NOTE | 2021-05-25 14:07 | PC.NURSE ---
Talked to respiratory therapist, informed about home o2 eval.
--- NOTE | 2021-05-25 14:53 | HOMEO2EVAL ---
Evaluation was performed at [facility] Home Oxygen Evaluation RC: Home Oxygen (O2) Evaluation Start: 05/25/21 12:59 Freq: ONCE Status: Active Protocol: RPE Activity Type Activity Date Activity User E-Sign Co-Sign Detail Recorded Client Recorded Date Recorded By Document 05/25/21 14:00 TORIBIO [email or web address] 05/25/21 14:52 TORIBIO Document 05/25/21 14:02 TORIBIO [email or web address] 05/25/21 14:52 TORIBIO Document 05/25/21 14:05 TORIBIO [email or web address] 05/25/21 14:52 TORIBIO 05/25/21 05/25/21 05/25/21 14:00 14:02 14:05 Home O2 Evaluation Test Phase Resting Resting Resting Oxygen Delivery Room Air Nasal Cannula Nasal Cannula Oxygen Flow Rate (L/min) 1 2 Pulse Oximetry (90-100 %) 87 L 88 L 94 Pulse Rate (60-100 beats/min) 105 H Home Oxygen Evaluation Comments Pt refusing to walk. Has home oxygen Treatment Charges O2 Evaluation - Inpatient
--- NOTE | 2021-05-25 14:54 | PCRCNOTE ---
[facility] Pt wears 3L. Currently requires 2 L with rest, unable to ambulate, pt refuses to move. RN notified.
--- NOTE | 2021-05-25 15:10 | PM.IMPN ---
Progress Note: A&P Assessment and Plan (1) Pneumonia: Code(s): J18.9 - Pneumonia, unspecified organism Status: Acute Assessment and Plan: Admit to regular medical floor Patient started on cefepime and vancomycin and Zithromax due to recent hospitalization Cultures in progress HPI: This is an 80-year-old female with past medical history significant for COPD/emphysema. Patient presents to the emergency room due to worsening shortness of breath she was recently discharged from the hospital where she was treated for COPD exacerbation. The patient is usually on supplemental oxygen at home. Patient complains of cough productive of greenish sputum, shortness of breath, subjective fevers and chills, poor appetite, denies any nausea, vomiting, abdominal pain or diarrhea. Preliminary workup was significant for a negative COVID test a chest x-ray showed bilateral lung infiltrates. Decision has been made to admit the patient for further evaluation, management and treatment. 05/23/2021 interval history: patient 80-year-old female with history of COPD emphysema patient recently discharged after see was treated for pneumonia no presented with complaint of cough and shortness of breath suspect patient has healthcare associated pneumonia and being treated with vancomycin, cefepime, and azithromycin, as well as exam patient of COPD will continue oral prednisone and provide with DuoNeb, currently patient states feeling much better however continue to complain of chronic pain, will continue present management will have a PT OT evaluate the patient, the chest x-rays in 2 days and further recommendation to follow. 05/24/2021 interval history: patient 80-year-old female with history of COPD emphysema patient recently discharged after see was treated for pneumonia no presented with complaint of cough and shortness of breath suspect patient has healthcare associated pneumonia and being treated with vancomycin, cefepime, and azithromycin, as well as exacerbate patient of COPD will continue oral prednisone and provide with DuoNeb, currently patient states feeling much better however continue to complain of chronic pain, will continue present management will have a PT OT evaluate the patient, the chest x-rays tomorrow and further recommendation to follow. 05/25/2021 interval history: patient 80-year-old female with history of COPD emphysema patient recently discharged after she was treated for pneumonia, presented with complaint of cough and shortness of breath suspect patient has healthcare associated pneumonia and being treated with vancomycin, cefepime, and azithromycin, repeat chest x-ray shows no infiltrate, there was also concerned for exacerbation of COPD will continue oral prednisone and provide with DuoNeb, patient remains clinically stable however patient gets short winded with activity will continue present management and reassess patient tomorrow. (2) Decompensated COPD with exacerbation (chronic obstructive pulmonary disease): Code(s): J44.1 - Chronic obstructive pulmonary disease with (acute) exacerbation Status: Acute Assessment and Plan: Continue prednisone p.o. Breathing treatments Supportive care Pulmonology consult (3) Chronic hypercapnic respiratory failure: Code(s): J96.12 - Chronic respiratory failure with hypercapnia Status: Acute Assessment and Plan: Continue supplemental oxygen (4) Obstructive sleep apnea: Code(s): G47.33 - Obstructive sleep apnea (adult) (pediatric) Status: Acute Assessment and Plan: Recommendation for noninvasive ventilation Patient cannot tolerate BiPAP (5) Aortic stenosis: Code(s): I35.0 - Nonrheumatic aortic (valve) stenosis Status: Acute Assessment and Plan: Unchanged Continue to monitor Subjective Date/time seen: 05/25/21 15:10 HPI: This is an 80-year-old female with past medical history significant for COPD/emphysema. Pat
--- NOTE | 2021-05-25 15:13 | PC.NURSE ---
Discharge held per Md Mayes r/t labored breathing, respiratory therapist was concerned about how pt isn't pushing air through lungs effiicently despite clear cxr 05/25/21.
--- NOTE | 2021-05-25 15:26 | PCRCNOTE ---
Spoke with after assessing patient with her most recent HHN. Pt extremely SOB after attempting to eat her lunch tray. She states she feels unwell today. SPo2 levels WNL however her wob and shortness of breath have increased. Breath sound are very diminished with little air movement in her right upper lobe (not consistent with am CXR). Dr. Cantu states he will hold d/c at this time and we will continue to monitor.
--- NOTE | 2021-05-25 16:02 | PCPTNOTE ---
PT attempted to see patient 3x today, however patient going for x-ray on first attempt, patient having EKG on second attempt and patient receiving breathing treatment from RT. PT will continue to follow per plan of care.
[2021-05-25 16:24] LABS: Glucose Point of Care 252 mg/dl (65-105)
[2021-05-26] VITALS (10 sets, daily range): BP systolic 154–183; BP diastolic 83–85; PULSE 104–115; RESP 16–22; TEMP 36.4–37; O2SAT 96–100
[2021-05-26] MEDS: methylPREDNISolone SOD SUCC 125 MG VIAL 60 MG IV PUSH ×3 (05:28→21:20)
[2021-05-26] MEDS: ALBUTEROL SULFATE NEB 2.5 MG/0.5 ML INH 5 MG INHALATION ×4 (08:09→22:00)
[2021-05-26] MEDS: UMECLIDINIUM BROMIDE 62.5 MCG ELLIPTA 1 PUFF INHALATION (08:09)
[2021-05-26] MEDS: IPRATROPIUM BR 0.02% INH SOLN 0.5 MG/2.5 ML VIAL INHALATION ×3 (08:09→22:00)
[2021-05-26] MEDS: FLUTICASONE/SALMETEROL 115-21 MCG INHALER 1 PUFF 2 PUFF INHALATION ×2 (08:09→22:13)
[2021-05-26] MEDS: predniSONE 20 MG TABLET 40 MG PO (08:40)
[2021-05-26] MEDS: ENALAPRIL MALEATE 10 MG TABLET PO ×2 (08:40→21:20)
[2021-05-26] MEDS: SODIUM CHLORIDE 1 GM TABLET PO (08:40)
[2021-05-26] MEDS: NITROFURANTOIN MONOHYD MACROCR 100 MG CAP PO ×2 (08:40→21:20)
[2021-05-26] MEDS: LORATADINE/PSEUDOEPHEDRINE (*CRX) 10/240 MG TABLET ER 24 HR 1 TAB PO (08:41)
[2021-05-26] MEDS: FUROSEMIDE 40 MG TABLET PO (08:41)
[2021-05-26] MEDS: amLODIPine BESYLATE 5 MG TABLET PO (08:41)
[2021-05-26] MEDS: PANTOPRAZOLE 40 MG TABLET PO (08:41)
[2021-05-26] MEDS: OPTI-GEN TAB 1 TABLET PO ×2 (08:41→16:44)
[2021-05-26] MEDS: CALCIUM CARBONATE (OSCAL) 500 MG TABLET PO (08:41)
[2021-05-26] MEDS: oxyCODONE/ACETAMINOPHEN (*CRX) 5-325 MG TABLET 1 TABLET PO (08:45)
[2021-05-26] MEDS: hydrOXYzine HCL 25 MG TABLET PO (08:45)
--- NOTE | 2021-05-26 11:10 | PM.IMPN ---
Progress Note: A&P Assessment and Plan (1) Pneumonia: Code(s): J18.9 - Pneumonia, unspecified organism Status: Acute Assessment and Plan: Probable pneumococcal pneumonia patient was treated with broad-spectrum IV antibiotic antibiotic was narrowed down to azithromycin and Rocephin re-evaluate in a.m. patient is more short of breath than physical finding may need CT scan of the chest to evaluate (2) Decompensated COPD with exacerbation (chronic obstructive pulmonary disease): Code(s): J44.1 - Chronic obstructive pulmonary disease with (acute) exacerbation Status: Acute Assessment and Plan: Solumedrol Breathing treatments Supportive care Pulmonology consult (3) Chronic hypercapnic respiratory failure: Code(s): J96.12 - Chronic respiratory failure with hypercapnia Status: Acute Assessment and Plan: Continue supplemental oxygen (4) Obstructive sleep apnea: Code(s): G47.33 - Obstructive sleep apnea (adult) (pediatric) Status: Acute Assessment and Plan: Recommendation for noninvasive ventilation Patient cannot tolerate BiPAP (5) Aortic stenosis: Code(s): I35.0 - Nonrheumatic aortic (valve) stenosis Status: Acute Assessment and Plan: Unchanged Continue to monitor (6) Acute diastolic CHF (congestive heart failure): Code(s): I50.31 - Acute diastolic (congestive) heart failure Status: Acute Assessment and Plan: Probable acute diastolic CHF exacerbation give IV diuresis and re-evaluate in a.m. Subjective Date/time seen: 05/26/21 11:10 Objective Data Vital Signs Vital Signs: Vital Signs - 24 hr 05/25/21 14:00 05/25/21 14:02 05/25/21 14:05 Temperature 98.5 F Pulse Rate 80 105 H Respiratory Rate 16 Blood Pressure 158/72 H Pulse Oximetry 95 88 L 94 05/25/21 14:45 05/25/21 14:55 05/25/21 20:12 Temperature Pulse Rate 114 H 113 H 115 H Respiratory Rate 30 H 28 H 22 H Blood Pressure Pulse Oximetry 05/25/21 20:20 05/25/21 20:21 05/25/21 21:47 Temperature 98.5 F Pulse Rate 114 H 106 H Respiratory Rate 22 H 16 Blood Pressure 156/63 H Pulse Oximetry 94 99 05/26/21 05:27 05/26/21 08:00 05/26/21 08:09 Temperature 98.4 F Pulse Rate 104 H 108 H 108 H Respiratory Rate 16 22 H 22 H Blood Pressure 183/85 H Pulse Oximetry 100 100 Intake/Output Intake/Output: Intake & Output 05/23/21 05/24/21 05/25/21 05/26/21 23:59 23:59 23:59 23:59 Intake Total 900 1690 1940 1290 Output Total 1000 2000 Balance -100 -310 1940 1290 Meds/Results Medications: Active Medications Generic Name Dose Route Start Last Admin Trade Name Freq PRN Reason Stop Dose Admin Albuterol 5 mg 05/23/21 02:00 05/26/21 08:09 Albuterol Sulfate Neb 2.5 Mg/0.5 Ml Inh INHALATION 5 mg Q6HRT RAISSA Administration Albuterol 2 puff 05/23/21 03:51 Albuterol Sulfate (*Sp) Aerosol 1 Puff INHALATION QID PRN shortness of breath or wheezin Amlodipine Besylate 5 mg 05/23/21 09:00 05/26/21 08:41 Amlodipine Besylate 5 Mg Tablet PO 5 mg QAM RAISSA Administration Calcium Carbonate 500 mg 05/23/21 09:00 05/26/21 08:41 Calcium Carbonate (Oscal) 500 Mg Tablet PO 500 mg QAM RAISSA Administration Docusate Sodium 100 mg 05/23/21 03:51 Docusate Sodium 100 Mg Capsule PO Q12H PRN Constipation Enalapril Maleate 10 mg 05/23/21 09:00 05/26/21 08:40 Enalapril Maleate 10 Mg Tablet PO 10 mg Q12HR RAISSA Administration Furosemide 40 mg 05/23/21 09:00 05/26/21 08:41 Furosemide 40 Mg Tablet PO 40 mg DAILY RAISSA Administration Furosemide 40 mg 05/26/21 17:00 Furosemide Inj 40 Mg/4 Ml Vial IV PUSH 05/27/21 17:01 BID RAISSA Hydroxyzine HCl 25 mg 05/23/21 03:51 05/26/21 08:45 Hydroxyzine Hcl 25 Mg Tablet PO 25 mg BID PRN Administration itching Azithromycin 500 mg in 250 mls @ 250 mls/hr 05/23/21 22:00 05/25/21 23:28
--- NOTE | 2021-05-26 12:15 | PC.NURSE ---
MD Mercado called informed Md of husbands concerns about trilogy ventilator setting for home. wishes to discuss condition with wheel grinder.
[2021-05-26] MEDS: cefTRIAXone 2 GM in SODIUM CHLORIDE 0.9% IV 100 ML 200 ML IVPB (12:20)
[2021-05-26] MEDS: FUROSEMIDE INJ 40 MG/4 ML VIAL IV PUSH (12:20)
--- NOTE | 2021-05-26 12:50 | PM.CNPUL ---
Assessment and Plan Assessment and plan (1) Depression: Code(s): F32.A - Depression, unspecified Status: Acute Assessment and Plan: This is long standing; she appears to have anxiety and depression; she had depression after the of her son. She has never been on treatment. Her agrees that this is one of her significant problems. She does not feel like getting up out of bed, has been bed-bound for about a month. She also has personality issues. She depends on her to do everything for her, she asks for help in the hospital, will not participate in Physical Therapy. PLAN: Start Zoloft 25 mg Hs x a week and increased to 50 mg HS Needs talk therapy Needs to increased activity srinivasa PT; she is immobile, becoming more deconditioned Will have RT set up BiPAP here with her Trilogy settings at home and have her use it while she is here. Her CXR is clear, ABG is not as abnormal with lower pCO2 this admission compared to April She has chronic hypoxemic hypercapnic respiratory failure and COPD currently is on adequate treatment other than not using her trilogy Extended time talking with on the phone. (2) Chronic respiratory failure with hypoxia and hypercapnia: Code(s): J96.11 - Chronic respiratory failure with hypoxia; J96.12 - Chronic respiratory failure with hypercapnia Status: Chronic Assessment and Plan: She had an admission during April with discharge on May 06 for acute on chronic respiratory failure with hypoxia and hypercapnia but this admission her ABG was improved. She has not even been using the trilogy at home. I do not know how she has improved but the blood gas speaks for itself. She does not have pneumonia. She does not have COVID. She is not wheezing. (3) COPD with emphysema: Code(s): J43.9 - Emphysema, unspecified Status: Acute Assessment and Plan: She has emphysematous changes on her chest CT. She is on COPD regimen including Symbicort and albuterol p.r.n. Her home med list shows Nitrofurantoin, a medication for her urinary stents. This drug can cause problems in older people especially females. She is 80 years old. Pulmonary toxicity is one of several problems that can develop with its use. I would not use this fdc. Her renal function is normal now. History of Present Illness History of Present Illness Consult date: 05/26/21 Requesting physician: Esther Hawthorne MD Chief complaint: AE COPD, community-aquired pneumonia Narrative: NEW: Belinda Black is an 80 year old female seen by pulmonary service in the hospital, as she has not been out of the hospital long enough to have a f/u office visit. She was discharged form the hospital after COPD exacerbation at the end of April, left May 06 after a few weeks here and was started on a Trilogy NPPV in her home, however she has not used it more than 2-3 hours per day and only for a few days; she is on oxygen and has COPD. I spoke with her at length phone number [phone]. He said that she is not compliant at home, had physical therapy in the home but would not participate and she is extremely depressed. She does not take any medications. She had an episode of depression years ago but has not been treated for her mental health issues. She does not participate in physical therapy here in the hospital. Her nurse says that when she becomes anxious or feels that the nurses leaving the room or not paying attention to her she starts saying inappropriate comments. I examined the patient and talk with her at length. She is on 2 L with excellent saturation 99%, she has a moist cough but no sputum production. She is not currently short of breath. She is immobile b
--- NOTE | 2021-05-26 14:22 | PC.NURSE ---
cefepime changed to 1 g bid iv q12h
--- NOTE | 2021-05-26 15:07 | PCPTNOTE ---
Patient declined PT stating not today. PT will continue to follow per plan of care.
--- NOTE | 2021-05-26 16:03 | PC.NURSE ---
Md Mercado seen pt this shift, cxr clr for yesterday, stated to this nurse pt's pulmonology results look better than prior visit in April 2021, abg's have improved. revenue director started pt on zoloft for depression and anxiety.
--- NOTE | 2021-05-26 18:04 | PCRCNOTE ---
DR AGRAWAL WANTS PATIENT ON HOME TRILOGY SETTINGS. [facility] WILL FAX PATIENTS CURRENT SETTINGS. UNTIL THEN, [facility] IS SET TO [facility] SETTINGS FROM THE PREVIOUS VISIT ON 04/29/21.
[2021-05-26] MEDS: SERTRALINE HCL 25 MG TABLET PO (21:20)
[2021-05-27] VITALS (10 sets, daily range): BP systolic 154–157; BP diastolic 95–101; PULSE 84–117; RESP 18–24; TEMP 36.4–37.6; O2SAT 91–97
[2021-05-27] MEDS: ALBUTEROL SULFATE NEB 2.5 MG/0.5 ML INH 5 MG INHALATION ×4 (03:49→20:45)
[2021-05-27] MEDS: methylPREDNISolone SOD SUCC 125 MG VIAL 60 MG IV PUSH ×2 (07:57→22:18)
[2021-05-27] MEDS: predniSONE 20 MG TABLET 40 MG PO (08:54)
[2021-05-27] MEDS: amLODIPine BESYLATE 5 MG TABLET PO (08:55)
[2021-05-27] MEDS: FUROSEMIDE INJ 40 MG/4 ML VIAL IV PUSH (08:55)
[2021-05-27] MEDS: CALCIUM CARBONATE (OSCAL) 500 MG TABLET PO (08:55)
[2021-05-27] MEDS: SODIUM CHLORIDE 1 GM TABLET PO (08:55)
[2021-05-27] MEDS: ENALAPRIL MALEATE 10 MG TABLET PO ×2 (08:55→22:17)
[2021-05-27] MEDS: OPTI-GEN TAB 1 TABLET PO ×2 (08:56→17:26)
[2021-05-27] MEDS: PANTOPRAZOLE 40 MG TABLET PO (08:56)
[2021-05-27] MEDS: NITROFURANTOIN MONOHYD MACROCR 100 MG CAP PO ×2 (08:56→22:19)
[2021-05-27] MEDS: IPRATROPIUM BR 0.02% INH SOLN 0.5 MG/2.5 ML VIAL INHALATION ×3 (09:27→21:25)
[2021-05-27] MEDS: UMECLIDINIUM BROMIDE 62.5 MCG ELLIPTA 1 PUFF INHALATION (09:28)
[2021-05-27] MEDS: FLUTICASONE/SALMETEROL 115-21 MCG INHALER 1 PUFF 2 PUFF INHALATION ×2 (09:28→21:20)
[2021-05-27] MEDS: LORATADINE/PSEUDOEPHEDRINE (*CRX) 10/240 MG TABLET ER 24 HR 1 TAB PO (09:58)
--- NOTE | 2021-05-27 10:09 | PM.IMPN ---
Progress Note: A&P Assessment and Plan (1) Pneumonia: Code(s): J18.9 - Pneumonia, unspecified organism Status: Acute Assessment and Plan: Probable pneumococcal pneumonia patient was treated with broad-spectrum IV antibiotic antibiotic was narrowed down to azithromycin and Rocephin improved (2) Decompensated COPD with exacerbation (chronic obstructive pulmonary disease): Code(s): J44.1 - Chronic obstructive pulmonary disease with (acute) exacerbation Status: Acute Assessment and Plan: wean off steroid Breathing treatments Supportive care Pulmonology consult (3) Chronic hypercapnic respiratory failure: Code(s): J96.12 - Chronic respiratory failure with hypercapnia Status: Acute Assessment and Plan: Continue supplemental oxygen (4) Obstructive sleep apnea: Code(s): G47.33 - Obstructive sleep apnea (adult) (pediatric) Status: Acute Assessment and Plan: Recommendation for noninvasive ventilation Patient cannot tolerate BiPAP (5) Aortic stenosis: Code(s): I35.0 - Nonrheumatic aortic (valve) stenosis Status: Acute Assessment and Plan: Mild Unchanged Continue to monitor (6) Acute diastolic CHF (congestive heart failure): Code(s): I50.31 - Acute diastolic (congestive) heart failure Status: Acute Assessment and Plan: Probable acute diastolic CHF exacerbation give IV diuresis shortness of breath improved continue IV Lasix re-evaluate in a.m. Subjective Date/time seen: 05/27/21 10:09 Interval history: Patient presented to the hospital shortness of breath was found to have probable COPD exacerbation and pneumonia treated with IV antibiotics patient also was found to have CHF showed exacerbation most likely diastolics treated with IV Lasix Patient feels better today shortness of breath has improved Patient denies fever headache chest pain I am seeing the patient for COPD exacerbation Exam Narrative: Patient is comfortable, NAD HEENT: eyes are clear and none icteric LUNGS: bilateral fair entry with rales and rhonchi HEART: RR S1S2 ABD: obese distended Lower extremities: no edema SKIN: nonjaundiced Neuro: grossly intact. Objective Data Vital Signs Vital Signs: Vital Signs - 24 hr 05/26/21 13:30 05/26/21 14:00 05/26/21 22:00 Temperature 98.6 F 97.6 F Pulse Rate 115 H 108 H 107 H Respiratory Rate 22 H 20 20 Blood Pressure 154/84 H 160/83 H Pulse Oximetry 100 96 05/26/21 22:05 05/26/21 22:12 05/26/21 23:04 Temperature Pulse Rate 110 H 108 H Respiratory Rate 21 H 21 H Blood Pressure Pulse Oximetry 96 05/27/21 06:00 Temperature 97.6 F Pulse Rate 106 H Respiratory Rate 18 Blood Pressure 156/99 H Pulse Oximetry 92 Intake/Output Intake/Output: Intake & Output 05/24/21 05/25/21 05/26/21 05/27/21 23:59 23:59 23:59 23:59 Intake Total 1690 1940 1770 350 Output Total 1999 Balance -310 1940 1770 350 Meds/Results Medications: Active Medications Generic Name Dose Route Start Last Admin Trade Name Freq PRN Reason Stop Dose Admin Albuterol 5 mg 05/23/21 02:00 05/27/21 03:49 Albuterol Sulfate Neb 2.5 Mg/0.5 Ml Inh INHALATION 5 mg Q6HRT RAISSA Administration Albuterol 2 puff 05/23/21 03:51 Albuterol Sulfate (*Sp) Aerosol 1 Puff INHALATION QID PRN shortness of breath or wheezin Amlodipine Besylate 5 mg 05/23/21 09:00 05/27/21 08:55 Amlodipine Besylate 5 Mg Tablet PO 5 mg QAM RAISSA Administration Calcium Carbonate 500 mg 05/23/21 09:00 05/27/21 08:55 Calcium Carbonate (Oscal) 500 Mg Tablet PO 500 mg QAM RAISSA Administration Docusate Sodium 100 mg 05/23/21 03:51 Docusate Sodium 100 Mg Capsule PO Q12H PRN Constipation Enalapril Maleate 10 mg 05/23/21 09:00 05/27/21 08:55 Enalapril Maleate 10 Mg Tablet PO 10 mg Q12HR RAISSA Administration Furosemide 40 mg 05/23/21 09:00 05/26/21 08:41 F
[2021-05-27] MEDS: cefTRIAXone 2 GM in SODIUM CHLORIDE 0.9% IV 100 ML 200 ML IVPB (12:39)
--- NOTE | 2021-05-27 19:56 | PM.PNPUL ---
Progress Note: A&P Assessment and Plan (1) Chronic respiratory failure with hypoxia and hypercapnia: Code(s): J96.11 - Chronic respiratory failure with hypoxia; J96.12 - Chronic respiratory failure with hypercapnia Status: Chronic Assessment and Plan: She had an admission during April with discharge on May 06 for acute on chronic respiratory failure with hypoxia and hypercapnia but this admission her ABG was improved. She has not even been using the trilogy at home. I do not know how she has improved but the blood gas shows improvement. She does not have pneumonia. She does not have COVID. She is not wheezing. (2) COPD with emphysema: Code(s): J43.9 - Emphysema, unspecified Status: Acute Assessment and Plan: She has emphysematous changes on her chest CT. She is on COPD regimen including Symbicort and albuterol p.r.n. Her home med list shows Nitrofurantoin, a medication for her urinary stents. This drug can cause problems in older people especially females. She is 80 years old. Pulmonary toxicity is one of several problems that can develop with its use. 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 Her renal function is normal now. (3) Depression: Code(s): F32.A - Depression, unspecified Status: Acute Assessment and Plan: Long standing; probable anxiety and depression; she had depression after the of her son. Never on treatment. She does not feel like getting up out of bed, has been bed-bound for about a month. She also has personality issues. She depends on her to do everything for her, she asks for help in the hospital, will not participate in Physical Therapy. Continue Zoloft 25 mg Hs x a week and increased to 50 mg HS Needs talk therapy Needs to increased activity srinivasa PT; she is immobile, becoming more deconditioned. Her CXR is clear, ABG is not as abnormal with lower pCO2 this admission compared to April She has chronic hypoxemic hypercapnic respiratory failure and COPD currently is on adequate treatment other than not using her trilogy Subjective Date/time seen: 05/27/21 19:56 Belinda Black is an 80 year old female seen in follow up for acute on chronic hypercapnic hypoxemic respiratory failure, on O2 , COPD, and she is on antibiotics for suspected pneumonia although her CXR appears clear. At the last visit with discharge early this month, she was started on a Trilogy NPPV in her home, however is not compliant with Trilogy, medications and physical therapy. She has untreated depression and poor insight. She does not have new symptoms. Feels better. Review of Systems Review of Systems: All systems reviewed & are unremarkable except as noted in HPI and below Exam Narrative: GEN: Alert, oriented, not in distress. She is reclining in bed, does not have the strength to sit up. HEENT: pupils are equal, EOMI, symmetrical face; oral membranes moist, Mallampati III airway NECK: Trachea is midline CHEST: Equal air entry, symmetric excursion, decreased breath sounds CV: Regular S1S2 no m/g/r ABD : (+) bowel sounds, obese nontender, Extremities : no clubbing, cyanosis, 1+ edema, she has wrinkled skin and mild erythema on her feet and lower ankles PSYCH: Depressed, anxious Objective Data Vital Signs Vital Signs: Vital Signs - 24 hr 05/26/21 22:00 05/26/21 22:05 05/26/21 22:12 Temperature 36.4 C Pulse Rate 107 H 110 H 108 H Respiratory Rate 20 21 H 21 H Blood Pressure 160/83 H Pulse Oximetry 96 05/26/21 23:04 05/27/21 06:00 05/27/21 08:55 Temperature 36.4 C Pulse Rate 106 H Respiratory Rate 18 Blood Pressure 156/99 H Pulse Oximetry 96 92 91 05/27/21 09:28 05/27/21 14:00 05/27/21 14:11 Temperature 37.6 C Pu
[2021-05-27] MEDS: SERTRALINE HCL 25 MG TABLET PO (22:20)
[2021-05-27] MEDS: oxyCODONE/ACETAMINOPHEN (*CRX) 5-325 MG TABLET 1 TABLET PO (23:17)
[2021-05-28] VITALS (12 sets, daily range): BP systolic 155–179; BP diastolic 90–95; PULSE 80–108; RESP 16–20; TEMP 36.2–36.7; O2SAT 93–96
[2021-05-28] MEDS: ALBUTEROL SULFATE NEB 2.5 MG/0.5 ML INH 5 MG INHALATION ×4 (02:22→20:43)
[2021-05-28] MEDS: IPRATROPIUM BR 0.02% INH SOLN 0.5 MG/2.5 ML VIAL INHALATION ×4 (02:22→20:43)
[2021-05-28] MEDS: predniSONE 20 MG TABLET 40 MG PO (09:41)
[2021-05-28] MEDS: SODIUM CHLORIDE 1 GM TABLET PO (09:41)
[2021-05-28] MEDS: FUROSEMIDE INJ 40 MG/4 ML VIAL IV PUSH (09:42)
[2021-05-28] MEDS: CALCIUM CARBONATE (OSCAL) 500 MG TABLET PO (09:42)
[2021-05-28] MEDS: amLODIPine BESYLATE 5 MG TABLET PO (09:42)
[2021-05-28] MEDS: ENALAPRIL MALEATE 10 MG TABLET PO ×2 (09:42→20:03)
[2021-05-28] MEDS: OPTI-GEN TAB 1 TABLET PO ×2 (09:42→17:28)
[2021-05-28] MEDS: methylPREDNISolone SOD SUCC 125 MG VIAL 60 MG IV PUSH ×2 (09:42→20:03)
[2021-05-28] MEDS: NITROFURANTOIN MONOHYD MACROCR 100 MG CAP PO ×2 (09:43→20:03)
[2021-05-28] MEDS: PANTOPRAZOLE 40 MG TABLET PO (09:43)
[2021-05-28] MEDS: FLUTICASONE/SALMETEROL 115-21 MCG INHALER 1 PUFF 2 PUFF INHALATION ×2 (09:44→20:44)
[2021-05-28] MEDS: oxyCODONE/ACETAMINOPHEN (*CRX) 5-325 MG TABLET 1 TABLET PO ×2 (09:48→17:30)
[2021-05-28] MEDS: LORATADINE/PSEUDOEPHEDRINE (*CRX) 10/240 MG TABLET ER 24 HR 1 TAB PO (09:48)
--- NOTE | 2021-05-28 10:15 | PM.IMPN ---
Progress Note: A&P Assessment and Plan (1) Pneumonia: Code(s): J18.9 - Pneumonia, unspecified organism Status: Acute Assessment and Plan: Probable pneumococcal pneumonia patient was treated with broad-spectrum IV antibiotic antibiotic was narrowed down to azithromycin and Rocephin no change from yesterday continue current treatment (2) Decompensated COPD with exacerbation (chronic obstructive pulmonary disease): Code(s): J44.1 - Chronic obstructive pulmonary disease with (acute) exacerbation Status: Acute Assessment and Plan: Continue current dose of steroid Breathing treatments Supportive care No change from yesterday continue current treatment (3) Chronic hypercapnic respiratory failure: Code(s): J96.12 - Chronic respiratory failure with hypercapnia Status: Acute Assessment and Plan: Continue supplemental oxygen (4) Obstructive sleep apnea: Code(s): G47.33 - Obstructive sleep apnea (adult) (pediatric) Status: Acute Assessment and Plan: Recommendation for noninvasive ventilation Patient cannot tolerate BiPAP (5) Aortic stenosis: Code(s): I35.0 - Nonrheumatic aortic (valve) stenosis Status: Acute Assessment and Plan: Mild Unchanged Continue to monitor (6) Acute diastolic CHF (congestive heart failure): Code(s): I50.31 - Acute diastolic (congestive) heart failure Status: Acute Assessment and Plan: Probable acute diastolic CHF exacerbation give IV diuresis shortness of breath improved continue IV Lasix re-evaluate in a.m. Subjective Date/time seen: 05/28/21 10:15 Interval history: Patient presented to the hospital shortness of breath was found to have probable COPD exacerbation and pneumonia treated with IV antibiotics patient also was found to have CHF showed exacerbation most likely diastolics treated with IV Lasix Patient still complaining of shortness of breath has pursing of lips as tachycardia Continue diuresis today Continue steroid Re-evaluate in a.m. Patient denies fever headache chest pain I am seeing the patient for COPD exacerbation Exam Narrative: Patient is comfortable, NAD HEENT: eyes are clear and none icteric LUNGS: bilateral fair entry with rales and rhonchi HEART: RR S1S2 ABD: obese distended Lower extremities: no edema SKIN: nonjaundiced Neuro: grossly intact. Objective Data Vital Signs Vital Signs: Vital Signs - 24 hr 05/27/21 14:00 05/27/21 14:11 05/27/21 20:40 Temperature 99.6 F Pulse Rate 117 H 99 116 H Respiratory Rate 24 H 21 H 18 Blood Pressure 154/101 H Pulse Oximetry 94 95 05/27/21 21:17 05/27/21 21:20 05/27/21 21:26 Temperature Pulse Rate 84 86 Respiratory Rate 19 21 H Blood Pressure Pulse Oximetry 97 05/27/21 22:00 05/28/21 02:19 05/28/21 02:27 Temperature 97.5 F L Pulse Rate 116 H 87 89 Respiratory Rate 18 18 19 Blood Pressure 157/95 H Pulse Oximetry 95 05/28/21 06:00 05/28/21 09:45 05/28/21 09:54 Temperature 97.2 F L Pulse Rate 108 H 100 103 H Respiratory Rate 16 18 18 Blood Pressure 161/95 H Pulse Oximetry 96 93 Intake/Output Intake/Output: Intake & Output 05/25/21 05/26/21 05/27/21 05/28/21 23:59 23:59 23:59 23:59 Intake Total 1940 0 1380 200 Output Total 300 Balance 19390 1380 -100 Meds/Results Medications: Active Medications Generic Name Dose Route Start Last Admin Trade Name Freq PRN Reason Stop Dose Admin Albuterol 5 mg 05/23/21 02:00 05/28/21 09:44 Albuterol Sulfate Neb 2.5 Mg/0.5 Ml Inh INHALATION 5 mg Q6HRT RAISSA Administration Albuterol 2 puff 05/23/21 03:51 Albuterol Sulfate (*Sp) Aerosol 1 Puff INHALATION QID PRN shortness of breath or wheezin Amlodipine Besylate 5 mg 05/23/21 09:00 05/28/21 09:42 Amlodipine Besylate 5 Mg Tablet PO 5 mg QAM RAISSA Administration Calcium Carbonate 500 mg 05/23/21 09:00 05/28/21 09:4
[2021-05-28] MEDS: cefTRIAXone 2 GM in SODIUM CHLORIDE 0.9% IV 100 ML 200 ML IVPB (13:07)
[2021-05-28] MEDS: SERTRALINE HCL 25 MG TABLET PO (20:03)
[2021-05-29] VITALS (9 sets, daily range): BP systolic 135; BP diastolic 97; PULSE 79–107; RESP 18–22; TEMP 36.4; O2SAT 94–97
[2021-05-29] MEDS: IPRATROPIUM BR 0.02% INH SOLN 0.5 MG/2.5 ML VIAL INHALATION ×3 (02:25→14:09)
[2021-05-29] MEDS: ALBUTEROL SULFATE NEB 2.5 MG/0.5 ML INH 5 MG INHALATION ×3 (02:25→14:09)
--- NOTE | 2021-05-29 02:55 | PCRCNOTE ---
Even though patient requested to be placed on AVAPS / BiPAP over night, she only left it on for about 1 hour before she asked to take it off
[2021-05-29] MEDS: UMECLIDINIUM BROMIDE 62.5 MCG ELLIPTA 1 PUFF INHALATION (08:09)
[2021-05-29] MEDS: FLUTICASONE/SALMETEROL 115-21 MCG INHALER 1 PUFF 2 PUFF INHALATION (08:55)
[2021-05-29] MEDS: methylPREDNISolone SOD SUCC 125 MG VIAL 60 MG IV PUSH (09:35)
[2021-05-29] MEDS: NITROFURANTOIN MONOHYD MACROCR 100 MG CAP PO (09:35)
[2021-05-29] MEDS: ENALAPRIL MALEATE 10 MG TABLET PO (09:35)
[2021-05-29] MEDS: CALCIUM CARBONATE (OSCAL) 500 MG TABLET PO (09:35)
[2021-05-29] MEDS: SODIUM CHLORIDE 1 GM TABLET PO (09:35)
[2021-05-29] MEDS: OPTI-GEN TAB 1 TABLET PO (09:35)
[2021-05-29] MEDS: PANTOPRAZOLE 40 MG TABLET PO (09:35)
[2021-05-29] MEDS: amLODIPine BESYLATE 5 MG TABLET PO (09:35)
[2021-05-29] MEDS: LORATADINE/PSEUDOEPHEDRINE (*CRX) 10/240 MG TABLET ER 24 HR 1 TAB PO (09:39)
--- NOTE | 2021-05-29 10:08 | PCNWS ---
Weekly nutritional screen. Patient screened in for 7 day length of stay. Patient is tolerating current diet with adequate intake. No weight loss reported. No nutritional needs at this time.
[2021-05-29] MEDS: cefTRIAXone 2 GM in SODIUM CHLORIDE 0.9% IV 100 ML 200 ML IVPB (11:34)
--- NOTE | 2021-05-29 11:47 | PM.DS ---
DS: Admitting Diagnosis Discharge Date 05/29/2021 Admitting Diagnosis Shortness of breath DS: Discharge Diagnosis Discharge Diagnosis (1) Pneumonia: Code(s): J18.9 - Pneumonia, unspecified organism Status: Acute Assessment and Plan: Probable pneumococcal pneumonia patient was treated with broad-spectrum IV antibiotic antibiotic was narrowed down to azithromycin and Rocephin patient condition continued to improve patient will be discharged on oral antibiotic (2) Decompensated COPD with exacerbation (chronic obstructive pulmonary disease): Code(s): J44.1 - Chronic obstructive pulmonary disease with (acute) exacerbation Status: Acute Assessment and Plan: Continue current dose of steroid Breathing treatments Supportive care Patient on prednisone 40 mg daily at home I recommend to taper down follow-up with PCP and pulmonology as outpatient (3) Chronic hypercapnic respiratory failure: Code(s): J96.12 - Chronic respiratory failure with hypercapnia Status: Acute Assessment and Plan: Continue supplemental oxygen (4) Obstructive sleep apnea: Code(s): G47.33 - Obstructive sleep apnea (adult) (pediatric) Status: Acute Assessment and Plan: Recommendation for noninvasive ventilation Patient cannot tolerate BiPAP (5) Aortic stenosis: Code(s): I35.0 - Nonrheumatic aortic (valve) stenosis Status: Acute Assessment and Plan: Mild Unchanged Continue to monitor (6) Acute diastolic CHF (congestive heart failure): Code(s): I50.31 - Acute diastolic (congestive) heart failure Status: Acute Assessment and Plan: Probable acute diastolic CHF exacerbation give IV diuresis shortness of breath improved patient will be discharged on oral diuretics. (7) Chronic antibiotic suppression: Code(s): Z79.2 - senior living (current) use of antibiotics Status: Acute Assessment and Plan: Patient is on nitrofurantoin 100 mg twice a day according to the patient patient is on this medication for recurrent stent pulmonology recommended to stop medication as it can cause pulmonary complication patient to follow-up with PCP I highly recommend patient to follow-up with her urologist and PCP as outpatient to address the long-term need of antibiotics and DI adjustment of antibiotics DS: Summary Hospital Course Hospital Course: Patient presented to the hospital shortness of breath with acute on top of chronic hypoxemic respiratory failure was found to have COPD exacerbation pulmonology was consulted patient was treated with IV steroid also patient was found to have pneumonia treated with IV antibiotic patient will be discharged on oral antibiotics patient was started on Seroquel 25 mg nightly can be advanced to 50 mg at bedtime in 1 week Patient on prednisone 40 mg daily recommend to taper down as outpatient follow-up with pulmonology and PCP Patient on nitrofurantoin 100 mg twice a day follow-up with PCP pulmonology recommended DC nitrofurantoin patient take nitrofurantoin for recurrent stent and recurrent infection nitrofurantoin has pulmonary complication I highly recommend for patient to follow-up with PCP and urologist for medication adjustment or discontinuation Time Spent with Patient Time attestation: Total time spent providing and/or coordinating discharge services: Exam Narrative: Patient is comfortable, NAD HEENT: eyes are clear and none icteric LUNGS: bilateral fair entry with rales and rhonchi HEART: RR S1S2 ABD: obese distended Lower extremities: no edema SKIN: nonjaundiced Neuro: grossly intact. Discharge Plan Discharge Attending physician on discharge: Dominick Salazar M.A. Consulting providers: Sophia Macedo Discharging Clinician: Dominick Salazar M.A. Patient Disposition: Home Health Service Activity: as tolerated Diet: heart healthy and diabetic Discharge Instructions: care coordination: Pt. to
== END 2021-05-29 15:15 | disposition home health service (06) | DRG 193 ==
LOC: ANHED 23:41 → ANH3MEDSUR 05-23 00:21
PROVIDERS: Admitting Provider Internal Medicine; Emergency Provider Emergency Medicine; PCP Internal Medicine; Visit Provider Internal Medicine
DX: J18.9 Pneumonia, unspecified organism (principal); I50.33 Acute on chronic diastolic (congestive) heart failure; J44.1 Chronic obstructive pulmonary disease with (acute) exacerbation; J44.0 Chronic obstructive pulmonary disease with (acute) lower respiratory infection; J96.12 Chronic respiratory failure with hypercapnia; J96.11 Chronic respiratory failure with hypoxia; E87.1 Hypo-osmolality and hyponatremia; I11.0 Hypertensive heart disease with heart failure; Z20.822 Contact with and (suspected) exposure to COVID-19; G47.33 Obstructive sleep apnea (adult) (pediatric); I35.0 Nonrheumatic aortic (valve) stenosis; R73.03 Prediabetes; K21.9 Gastro-esophageal reflux disease without esophagitis; G89.4 Chronic pain syndrome; E55.9 Vitamin D deficiency, unspecified; I87.2 Venous insufficiency (chronic) (peripheral); F32.A Depression, unspecified; F41.9 Anxiety disorder, unspecified; E66.9 Obesity, unspecified; Z96.651 Presence of right artificial knee joint; Z68.36 Body mass index [BMI] 36.0-36.9, adult; Z99.81 Dependence on supplemental oxygen; Z87.891 Personal history of nicotine dependence; Z91.19 Patient's noncompliance with other medical treatment and regimen
CPT/HCPCS: 36415; 36600; 71045; 71046; 80048; 80053; 80202; 82565; 82805; 82948; 83605; 83880; 84484; 85025; 85027; 85610; 85730; 87040; 87426; 93005; 94002; 94618; 94640; 96365; 96367; 96375; 97110; 97163; 97166; 97530; 99285; A9270; C9803; G0378; J0456; J0692; J0696; J1940; J2930; J3370; J7512

== ENCOUNTER 2021-11-22 12:13 | Inpatient (IN) | payer MEDICARE, SELFPAY ==
[2021-11-22] VITALS (14 sets, daily range): BP systolic 139–220; BP diastolic 77–100; PULSE 77–104; RESP 14–22; TEMP 36.6–36.9; O2SAT 94–99; BMI 37.8
--- NOTE | ~2021-11-22 | US_ITS ---
EXAMINATION: US venous doppler [facility] DATE: 11/23/2021 09:15 INDICATION: Immobility with lower limb pain and swelling. TECHNIQUE: Grayscale ultrasound images without and with compression and Doppler ultrasound images of the bilateral lower extremity veins were obtained. COMPARISON: None. FINDINGS: The visualized portions of right common femoral vein, profunda (deep) femoral vein, femoral vein, pop liteal vein, posterior tibial veins, peroneal veins, gastrocnemius vein and greater saphenous vein ou tflow are patent. The visualized portions of left common femoral vein, profunda femoral vein, femoral vein, popliteal v ein, posterior tibial veins, peroneal veins, gastrocnemius vein and greater saphenous vein outflow ar e patent. IMPRESSION: 1. No deep venous thrombosis in either lower limb. Reviewed, dictated and finalized at location A.
--- NOTE | ~2021-11-22 | CT_ITS ---
EXAMINATION: CTA chest PE protocol DATE: 11/23/2021 21:26 INDICATION: R/O PE TECHNIQUE: Computed tomography angiography (CTA) of the chest was performed with 100 mL Omnipaque-350 intravenous contrast timed to evaluate the pulmonary arteries. Coronal maximum intensity projection 3D-reconstructions were created by the technologist. The dose-length product (DLP) was 881.24 mGy-cm. Automated exposure control and iterative reconstruction technique were employed. COMPARISON: 04/27/2021. Thyroid ultrasound 10/05/2019. FINDINGS: Study quality: Adequate. Pulmonary arteries: No pulmonary emboli detected. Thoracic aorta: Mild arch calcification. Lung parenchyma and airways: Clear. Thoracic inlet, axillae and chest wall: Increased size of the now 2.8 cm right thyroid mass. Mediastinum: Normal. Heart and pericardium: Aortic and mitral calcifications. Coronary artery calcifications: Absent. Pleura: Unremarkable. Upper abdomen: No significant finding. Likely subcentimeter left adrenal adenoma. Bones: No acute osseous finding. Partial visualization of the upper portion of the posterior lumbar s pine fusion hardware. IMPRESSION: No CT evidence of acute pulmonary embolus. Enlarged right thyroid mass, recommend nonemergent but cristina yvette thyroid ultrasound for further evaluation. Reviewed, dictated and finalized at location K. IMPRESSION: No CT evidence of acute pulmonary embolus. Enlarged right thyroid mass, recomme nd nonemergent but timely thyroid ultrasound for further evaluation.
--- NOTE | ~2021-11-22 | XR_ITS ---
EXAMINATION: XR chest 2V DATE: 11/22/2021 13:04 INDICATION: Shortness of breath and weakness TECHNIQUE: frontal and lateral views of the chest were obtained. COMPARISON: Chest radiograph dated 05/25/2021 FINDINGS: Costochondral calcification is projected over the bilateral lungs. Small calcified nodule at the righ t costophrenic angle consistent with old granulomatous disease. No other airspace opacities, pulmonar y edema, pleural effusion or pneumothorax. The cardiomediastinal silhouette is normal. 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 Moderate thoracic spondylosis. Partially visualized b ilateral vertical ignacio and pedicle screw fixation for lumbar posterior spinal fusion. IMPRESSION: 1. No acute cardiopulmonary disease. Reviewed, dictated and finalized at location A.
--- NOTE | 2021-11-22 12:18 | ECG_ITS ---
Measurements Intervals [place] Rate: 90 P: 79 SD: 168 QRS: 36 QRSD: 85 T: 64 QT: 330 QTc: 404 Interpretive Statements SINUS RHYTHM MINIMAL Q WAVES- INFERIOR LEADS BASELINE ARTIFACT- I, II, III, AVR, AVL, AVF, V1-V2 BORDERLINE ECG Electronically Signed On 11-22-2021 14:21:25 CDT by Moiz Melton D.O.
--- NOTE | 2021-11-22 12:18 | ED.SOB ---
HPI - SOB/Dyspnea General Chief Complaint: Shortness of Breath/Dyspnea Stated Complaint: DIFFICULTY BREATHING X 3 DAYS (copd hx) Time Seen by Provider: 11/22/21 12:18 Source: patient and EMS Mode of arrival: EMS Limitations: no limitations History of Present Illness HPI Narrative: 81 years old white female came from home by ambulance because of increased shortness of breath over the last few days. History of COPD. She denies any fever, chills, nausea, vomiting, chest pain, back pain, sneezing, coughing, nasal or postnasal discharge. Patient on chronic oxygen by nasal cannula at 3 L/min. Patient lives with her who is her leasing assistant, wheelchair for 1 year, recliner with the Ability to push her forward to help her to stand and the can place her back on the wheelchair. Patient is full code Related Data Home Medications Medication Instructions Recorded Confirmed vit C 250 mg-vit E 90 mg-zinc 40 1 tablet PO BID 07/12/19 11/03/21 mg-copper 1 os-vwndrr-vsxdru capsule (PreserVision AREDS-2) calcium carbonate 600 mg calcium 600 mg PO DAILY 04/27/21 11/03/21 (1,500 mg) tablet tiotropium bromide 18 mcg capsule 1 cap inhalation DAILY 04/27/21 11/03/21 with inhalation device (Spiriva with HandiHaler) Allergies Allergy/AdvReac Type Severity Reaction Status Date / Time aluminum aspirin Allergy Mild pt does Verified 11/03/21 12:31 not know aspirin Allergy Mild rash Verified 11/03/21 12:31 Sulfa (Sulfonamide Allergy Mild THROAT, Verified 11/03/21 12:31 Antibiotics) TONGUE SWELLING,Unknown hydralazine AdvReac Chest Pain Verified 11/03/21 12:31 Review of Systems Review of Systems: All systems reviewed & are unremarkable except as noted in HPI and below PMFSH Past Medical History Medical History Abdominal bruit Renal US negative for stenosis 08/2019. Adhesive capsulitis of right shoulder Aortic stenosis Mild on echocardiogram from October 2018. Borderline diabetic The patient stated she is not taking anything for her diabetes and she is not diabetic. Cataracts, bilateral Maturing cataracts bilaterally. Chronic diastolic (congestive) heart failure (Unknown) Echocardiogram October 2018 demonstrated normal left ventricular systolic function with EF of 65-70% grade 1 diastolic dysfunction mild aortic stenosis with a normal RVSP of 34. Chronic hyponatremia Chronic pain syndrome With chronic back, bilateral shoulder, and left knee pain. 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 Diastolic dysfunction Essential (primary) hypertension (Unknown) Fractured coccyx GERD (gastroesophageal reflux disease) History of angina History of tobacco abuse Hyponatremia (Unknown) Insomnia Liver mass 21 mm likely benign noted on imaging for 2018. Liver mass Obstructive sleep apnea Noncompliant with CPAP therapy at home. Thyroid nodule On CT scan from July 2017. Ulcerative colitis Venous stasis dermatitis of both lower extremities Venous stasis ulcer Vitamin D deficiency Surgical History Surgical History History of arthroscopy of left knee (~2000) History of lumbar surgery (~2001) History of tonsillectomy History of total right knee replacement (~01/2012) History of ventral hernia repair With abdominoplasty. Family History Family History Mother Diabetes mellitus Father COPD (chronic obstructive pulmonary disease) Social History Social History Social History: The patient lives at home with her of 60 years. 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 She has a 50 pack year smoking history and quit in 2007. No alcohol or illicit substance use. She mostly us
[2021-11-22 12:44] LABS: Basophils Absolute Auto 0.1 K/mm3 (0.0-0.1); Basophils Percent Auto 0.8 % (0.2-1.2); Eosinophils Absolute Auto 0.2 K/mm3 (0-0.3); Hematocrit 34.2 % (37.0-47.0); Hemoglobin 10.1 g/dL (12.0-15.0); Immature Granulocyte Absolute 0.03 K/mm3 (0.00-0.031); Immature Granulocyte Percent A 0.5 % (0-0.5); Lymphocytes Absolute Auto 0.77 K/mm3 (0.9-3.2); Lymphocytes Percent Auto 11.7 % (18.3-44.2); Mean Corpuscular HGB Conc 29.5 g/dl (32-36); Mean Corpuscular Hemoglobin 25.6 pg (26-34); Mean Corpuscular Volume 86.8 fl (80-100); Mean Platelet Volume 9.7 fl (7.4-10.4); Monocytes Absolute Auto 0.8 K/mm3 (0.1-0.6); Monocytes Percent Auto 11.9 % (2.6-8.5); Neutrophils Absolute Auto 4.8 K/mm3 (1.3-6.7); Neutrophils Percent Auto 72.1 % (45.5-73.1); Platelet Count Result 226 k/mm3 (150-375); Red Blood Count 3.94 M/mm3 (4.2-5.4); White Blood Count 6.6 K/mm3 (4.5-10.0)
[2021-11-22 12:52] LABS: Base Excess ABG 10.2 mEq/l (+/-2.0); Fractional Inspired Oxygen 28 %; HCO3 ABG 38.5 mEq/l (22.0-26.0); Oxygen Content ABG 15.6 %vol (16.0-22.0); Oxygen Saturation ABG 98.3 % (95.0-100.0); Oxyhemoglobin 97.4 % THb (90.0-100.0); PO2 ABG 129.8 mmHg (80.0-100.0); PO2 FiO2 Ratio Arterial Blood 4.64 %; Total Hemoglobin 11.2 g/dL (12.0-18.0); pH ABG 7.332 (7.350-7.450)
[2021-11-22 12:54] LABS: Device NASAL CANNULA; Modified Allen's Test Pass; PCO2 ABG 74.4 mmHg (35.0-45.0); Site Drawn RIGHT RADIAL
[2021-11-22 12:58] LABS: Alanine Aminotransferase 13 U/L (6-35); Albumin Level 3.9 g/dL (3.5-5.1); Alkaline Phosphatase 73 U/L (38-126); Aspartate Amino Transferase 21 U/L (14-36); Bilirubin,Total 0.3 mg/dL (0.2-1.3); Blood Urea Nitrogen 17 mg/dL (7-17); Calcium 8.8 mg/dL (8.4-10.2); Carbon Dioxide > 40 mmol/L (22-30); Chloride 91 mmol/L (98-107); Estimated CRCL calculation 65 ml/min; Estimated Glomerular Filt Rate > 60; Glucose 119 mg/dL (65-110); Lipase 59 U/L (23-300); Potassium 4.3 mmol/L (3.4-5.0); Sodium 136 mmol/L (137-145)
[2021-11-22 13:03] LABS: Hypochromasia 2+ (NORMAL); Platelet Estimate Adequate (Adequate)
[2021-11-22 13:05] LABS: INR 0.9; Partial Thromboplastin Time 28.7 SECONDS (22.3-36.8); Prothrombin Time 12.2 Seconds (11.1-14.7)
[2021-11-22 13:08] LABS: NT Pro B Type Natriuretic Pept 745 pg/mL (5-100); Troponin I < 0.012 ng/mL (0.000-0.034)
[2021-11-22 13:18] LABS: D Dimer 0.75 ug/mL (<0.48)
[2021-11-22 13:24] LABS: Influenza A QL RT-PCR Negative (Negative); Influenza B QL RT-PCR Negative (Negative); SARS-CoV-2 RNA PCR Negative
[2021-11-22] MEDS: methylPREDNISolone SOD SUCC 125 MG VIAL 62.5 MG IV PUSH (14:23)
[2021-11-22] MEDS: ALBUTEROL SULFATE NEB 2.5 MG/3 ML INH 5 MG INHALATION ×3 (14:31→14:35)
[2021-11-22] MEDS: IPRATROPIUM BR 0.02% INH SOLN 0.5 MG/2.5 ML VIAL INHALATION (14:31)
--- NOTE | 2021-11-22 14:45 | PM.IMHP ---
H&P: HPI History of Present Illness Date/Time: 11/22/21 14:45 Chief Complaint: Shortness of breath. Narrative: This is an 81-year-old female with chronic hypoxic and hypercapnic respiratory failure on 3 L nasal cannula, COPD with emphysema, obstructive sleep apnea (noncompliant with Trilogy NPPV at home) diastolic congestive heart failure, hypertension (not currently on medication), depression, and other comorbidities who presented to the emergency department via EMS from home for evaluation of shortness of breath. She is chronically debilitated and she spends a majority of her time in bed or in a wheelchair with minimal exertion due to shortness of breath and chronic pain. She tells me that she is always short of breath however her shortness of breath has become increasingly labored over the past 1 week. She is chronically on 3 L nasal cannula but did turned that up to 4 L without a whole lot of benefit. She states compliance with her home inhalers and she has been using her per her a rescue inhaler without much benefit. She has not used her nebulizer machine because she reportedly does not know how to use it. She has also not been wearing her Trilogy at nighttime for unclear reasons. On arrival today her ABG showed worsening hypercapnia from baseline and she has since been started on BiPAP. She has an occasional dry cough but that is unchanged. With her worsening shortness of breaths she has had some mild chest tightness because she feels as though she cannot get in a deep breath. She denies fever, chills, sweats, sinus congestion, sore throat, sick contacts, nausea, vomiting, pleuritic pain, and sweats. Review of Systems Review of Systems: Twelve systems were reviewed. No sick contacts. She has chronic lower extremity edema and stasis dermatitis which she believes to be unchanged. Her provides majority of her care at home and it sounds as though she has become increasingly reliant on him. For example she needs him to help her get up from a seated position and he also pushes her in her wheelchair she apparently cannot do that herself. In the past PT and home health had been ordered though she refused to participate, unfortunately. She tells me that she is depressed and she was previously on sertraline though that is not listed as an active medication at this time. She denies suicidal and harmful thoughts. Also she has previously been prescribed amlodipine for hypertension though she is not taking that either. Except as documented, all other systems were reviewed and are negative. [facility] Past Medical History Medical History (Updated 11/22/21 @ 16:44 by Belem Simmons PA-C) Abdominal bruit Renal US negative for stenosis 08/2019. Adhesive capsulitis of right shoulder Aortic stenosis Mild on echocardiogram from October 2018. Borderline diabetic The patient stated she is not taking anything for her diabetes and she is not diabetic. Cataracts, bilateral Maturing cataracts bilaterally. Chronic diastolic (congestive) heart failure (Unknown) Echocardiogram October 2018 demonstrated normal left ventricular systolic function with EF of 65-70% grade 1 diastolic dysfunction mild aortic stenosis with a normal RVSP of 34. Chronic hyponatremia Chronic pain syndrome With chronic back, bilateral shoulder, and left knee pain. Chronic respiratory failure with hypoxia and hypercapnia COPD with emphysema Dependence on supplemental oxygen On 3 liters nasal cannula. Depression Diastolic dysfunction Essential (primary) hypertension (Unknown) Fractured coccyx Gastroesophageal reflux disease History of angina History of tobacco abuse Insomnia Liver mass 21 mm likely benign noted on imaging for 2017. Obstructive sleep apnea Noncompliant with Trilogy NPPV at home. Thyroid nodule On CT scan from July 2017. Ulcerative colitis Venous stasis dermatitis of both lower extremities Vitamin D deficiency Surgical History Surgical History (Reviewed 11/22/21 @
[2021-11-22 15:33] LABS: Alveolar/Arterial O2 Gradient 19.2 mmHg; Base Excess ABG 8.8 mEq/l (+/-2.0); Carboxyhemoglobin 0.2 % THb (0-2.0); Fractional Inspired Oxygen 35 %; HCO3 ABG 36.7 mEq/l (22.0-26.0); Methemoglobin ABG 0.2 %THb (0-1.5); Oxygen Content ABG 16.1 %vol (16.0-22.0); Oxygen Saturation ABG 98.7 % (95.0-100.0); PO2 ABG 149.7 mmHg (80.0-100.0); PO2 FiO2 Ratio Arterial Blood 4.28 %; Reduced Hemoglobin 1.6 %THb (0-5.0); Total Hemoglobin 11.5 g/dL (12.0-18.0); pH ABG 7.341 (7.350-7.450)
[2021-11-22 15:35] LABS: Device BIPAP; Modified Allen's Test Pass; PCO2 ABG 69.4 mmHg (35.0-45.0); Site Drawn LEFT RADIAL
[2021-11-22 15:36] LABS: Expiratory Pressure 6 cmH2O; Inspiratory Pressure 12 cmH2O
[2021-11-22] MEDS: amLODIPine BESYLATE 5 MG TABLET 10 MG PO (16:12)
[2021-11-22 16:22] LABS: Troponin I < 0.012 ng/mL (0.000-0.034)
[2021-11-22] MEDS: methylPREDNISolone SOD SUCC 125 MG VIAL 60 MG IV PUSH ×2 (18:06→23:29)
--- NOTE | 2021-11-22 18:15 | ADMGEN ---
This patient, Belinda Black, was admitted to IMU Room 207-01. Patient/family oriented to hospital policies and general routines including ID bracelet, bed and alarms, visiting hours, pain management, procedures, bathroom and other care routines, personal items, smoking policy, room service/diet, and visiting hours. Information on how to activate the Rapid Response Team has been discussed. Patient/Family are encouraged to report perceived risks to care and to ask questions if they do not understand what they are told or what they should do.
[2021-11-22 19:01] LABS: Troponin I < 0.012 ng/mL (0.000-0.034)
[2021-11-22 20:15] LABS: Alveolar/Arterial O2 Gradient 52.5 mmHg; Base Excess ABG 9.2 mEq/l (+/-2.0); Carboxyhemoglobin 0.3 % THb (0-2.0); Fractional Inspired Oxygen 35 %; HCO3 ABG 36.6 mEq/l (22.0-26.0); Methemoglobin ABG 0.4 %THb (0-1.5); Oxygen Content ABG 16.6 %vol (16.0-22.0); Oxygen Saturation ABG 98.2 % (95.0-100.0); Oxyhemoglobin 97.2 % THb (90.0-100.0); PO2 ABG 121.5 mmHg (80.0-100.0); PO2 FiO2 Ratio Arterial Blood 3.47 %; Reduced Hemoglobin 2.1 %THb (0-5.0); pH ABG 7.369 (7.350-7.450)
[2021-11-22 20:21] LABS: Modified Allen's Test Pass; Site Drawn RIGHT RADIAL
[2021-11-22 20:22] LABS: Device NON-INVASIVE VENT; Non-Invasive Expiratory Pressure 6 CMH2O; Non-Invasive Inspiratory Pressure 12 CMH2O; Non-Invasive Vent Rate 4 /MIN
[2021-11-22] MEDS: hydrOXYzine HCL 25 MG TABLET PO (23:29)
[2021-11-23] VITALS (25 sets, daily range): BP systolic 110–168; BP diastolic 63–94; PULSE 69–114; RESP 14–24; TEMP 36.1–36.7; O2SAT 93–99
[2021-11-23] MEDS: LORazepam INJ (*CRX) 2 MG/ML VIAL 1 MG IV PUSH (02:15)
[2021-11-23] MEDS: IPRATROPIUM BR 0.02% INH SOLN 0.5 MG/2.5 ML VIAL INHALATION ×5 (03:00→23:15)
[2021-11-23] MEDS: ALBUTEROL SULFATE NEB 2.5 MG/3 ML INH INHALATION ×5 (03:00→23:15)
[2021-11-23 04:07] LABS: Alveolar/Arterial O2 Gradient 60.9 mmHg; Base Excess ABG 10.2 mEq/l (+/-2.0); Fractional Inspired Oxygen 30 %; HCO3 ABG 37.1 mEq/l (22.0-26.0); Methemoglobin ABG 0.5 %THb (0-1.5); Oxygen Content ABG 16.1 %vol (16.0-22.0); Oxygen Saturation ABG 95.6 % (95.0-100.0); PO2 ABG 80.9 mmHg (80.0-100.0); Reduced Hemoglobin 4.5 %THb (0-5.0); pH ABG 7.399 (7.350-7.450)
[2021-11-23 04:09] LABS: PCO2 ABG 61.4 mmHg (35.0-45.0)
[2021-11-23 04:10] LABS: Device NON-INVASIVE VENT; Modified Allen's Test Pass; Non-Invasive Expiratory Pressure 6 CMH2O; Non-Invasive Inspiratory Pressure 14 CMH2O; Non-Invasive Vent Rate 14 /MIN; Site Drawn RIGHT RADIAL
[2021-11-23] MEDS: methylPREDNISolone SOD SUCC 125 MG VIAL 60 MG IV PUSH (05:21)
[2021-11-23 06:01] LABS: Hematocrit 34.5 % (37.0-47.0); Hemoglobin 10.5 g/dL (12.0-15.0); Mean Corpuscular HGB Conc 30.4 g/dl (32-36); Mean Corpuscular Hemoglobin 25.7 pg (26-34); Mean Corpuscular Volume 84.4 fl (80-100); Mean Platelet Volume 10.4 fl (7.4-10.4); Platelet Count Result 237 k/mm3 (150-375); Red Blood Count 4.09 M/mm3 (4.2-5.4); Red Cell Distribution Width 13.9 % (11.5-14.5)
[2021-11-23 06:11] LABS: Anion Gap 5 mmol/L (8-16); Blood Urea Nitrogen 19 mg/dL (7-17); Carbon Dioxide 37 mmol/L (22-30); Chloride 92 mmol/L (98-107); Estimated CRCL calculation 62 ml/min; Estimated Glomerular Filt Rate > 60; Glucose 176 mg/dL (65-110); Magnesium 1.8 mg/dL (1.6-2.3); Potassium 4.6 mmol/L (3.4-5.0); Sodium 134 mmol/L (137-145)
[2021-11-23] MEDS: oxyCODONE/ACETAMINOPHEN (*CRX) 5-325 MG TABLET 1 TABLET PO ×2 (06:22→20:11)
[2021-11-23] MEDS: oxyCODONE HCL (*CRX) 5 MG TAB IR PO ×2 (06:23→20:12)
[2021-11-23] MEDS: CELECOXIB 200 MG CAPSULE PO (09:20)
[2021-11-23] MEDS: amLODIPine BESYLATE 5 MG TABLET 10 MG PO (09:20)
[2021-11-23] MEDS: OPTI-GEN TAB 1 TABLET PO ×2 (09:21→17:23)
[2021-11-23] MEDS: ENOXAPARIN 40 MG/0.4 ML SYRINGE SUB-Q (09:21)
[2021-11-23] MEDS: UMECLIDINIUM BROMIDE 62.5 MCG ELLIPTA 1 PUFF INHALATION (09:33)
[2021-11-23] MEDS: FLUTICASONE/SALMETEROL 115-21 MCG INHALER 1 PUFF 2 PUFF INHALATION (09:33)
--- NOTE | 2021-11-23 11:23 | PM.CNPUL ---
Assessment and Plan Assessment and plan (1) Chronic respiratory failure with hypoxia and hypercapnia: Code(s): J96.11 - Chronic respiratory failure with hypoxia; J96.12 - Chronic respiratory failure with hypercapnia Status: Chronic Assessment and Plan: patient with a history of chronic hypoxemic and hypercarbic respiratory failure from her COPD and has previously been prescribed a home noninvasive ventilator with the Astral mode through [facility] [place] on 05/05/2021. This machine was delivered but the patient could not tolerate it due to uncomfortable mask and the breath being pushed in too hard. She did not follow up in the Pulmonary Clinic despite to attempts to call her to set this up. She did not tolerate the BiPAP 14 over 6 because of gave too much pressure on the air. I switched her to a noninvasive ventilator with the a VATS mode and tighter the settings to comfort and she tolerated a AVAPS mode, rate of 14, tidal volume 450, EPAP 5, minimal inspiratory pressure 6, maximal inspiratory pressure 25, inspiratory time 1.2, rise of 3 and 30%. Her saturations were 98%. I have told the patient's to bring in her home machine and I will attempt to obtain a download 3 [facility] to see exactly what settings the patient was on. Once I have this information I will decide whether to use her home machine or the hospital machine with the above-mentioned AVAPS settings. Will check a blood gas in the morning and an overnight oximetry. (2) COPD exacerbation: Code(s): J44.1 - Chronic obstructive pulmonary disease with (acute) exacerbation Status: Acute Assessment and Plan: 81-year-old woman with a history of COPD (tobacco 47 PY quit [address] chest 08/19/2017 with severe apical predominant centrilobular emphysema) with chronic hypoxemic and hypercarbic respiratory failure on 3 L nasal cannula 22/11 and noncompliant with her home noninvasive ventilator with the Astral mode. at baseline patient has a chair lift at home and the and the patient state that she can stand up and pivot to wheelchair. She has been nonambulatory for over a year. She is maintained on Symbicort and Spiriva. The patient has 3 days worsening cough, shortness of breath at rest, and dyspnea. she has a normal white blood cell count, no eosinophilia, positive D-dimer with lower extremity Dopplers. Her troponins are negative x3 and a BNP is 745. Chest x-ray is with no active disease. I will obtain a CT angiogram to exclude PE. Agree with treatment for COPD exacerbation including Solu-Medrol which I will switch to prednisone 40 mg p.o. starting today as she has no wheezes currently. I will continue albuterol and ipratropium nebulizers q.6 hours. I will initiate azithromycin 500 Q day. Since she is on steroids and maximal dose beta agonist and muscarinic antagonist I will discontinue Advair and incruse. Goal saturation 90-92% with supplemental oxygen. (3) Obstructive sleep apnea: Code(s): G47.33 - Obstructive sleep apnea (adult) (pediatric) Status: Acute Assessment and Plan: Patient has a history of obstructive sleep apnea diagnosed 8 years ago in [place]. She could not tolerate a CPAP machine and therefore her machine was taken away from her. The then bought a CPAP machine that had 20 hours use and attempted to use this but she was still unable to tolerate the CPAP. History of Present Illness History of Present Illness Consult date: 11/23/21 Chief complaint: Acute hypercapnic respiratory failure/COPD exacerb Narrative: 11/23/2021: This is a new pulmonary consult for COPD exacerbation requiring BiPAP 81-year-old woman with a history of COPD (tobacco 47 PY quit [address] chest 08/19/2017 with severe apical predominant centrilobular emphysema) with chronic hypoxemic and hypercarbic respiratory failure on 3 L nasal cannula 22/11 and noncompliant with her home noninvasive ventilator with the Bobo grayson
[2021-11-23] MEDS: predniSONE 20 MG TABLET 40 MG PO (15:10)
[2021-11-23] MEDS: polyethylene glycoL 3350 17 GM POWD.PACK PO (15:10)
--- NOTE | 2021-11-23 16:35 | PM.IMPN ---
Progress Note: A&P Assessment and Plan (1) Acute on chronic respiratory failure with hypoxia and hypercapnia: Code(s): J96.21 - Acute and chronic respiratory failure with hypoxia; J96.22 - Acute and chronic respiratory failure with hypercapnia Status: Acute Assessment and Plan: Secondary to noncompliance with Triology and nebulizers. Continue BiPAP overnight, ABGs have improved. (2) COPD exacerbation: Code(s): J44.1 - Chronic obstructive pulmonary disease with (acute) exacerbation Status: Chronic Assessment and Plan: Worsening shortness of breath is likely due to noncompliance as above. Currently on BiPAP; discussed the importance of using Trilogy at home. Continue scheduled bronchodilators q.6 hours and Solu-Medrol. No indication for antibiotics. (3) Uncontrolled hypertension: Code(s): I10 - Essential (primary) hypertension Status: Acute Assessment and Plan: Previously on amlodipine though that is not currently on her active medication list. Resume amlodipine 10 mg daily and trend blood pressures, making adjustments accordingly. (4) Chronic anemia: Code(s): D64.9 - Anemia, unspecified Status: Acute Assessment and Plan: Stable on review of previous labs. (5) Diastolic dysfunction: Code(s): I51.89 - Other ill-defined heart diseases Status: Acute Assessment and Plan: Compensated. Monitor volume status. (6) Chronic pain syndrome: Code(s): G89.4 - Chronic pain syndrome Status: Acute Assessment and Plan: Home medications will be reviewed and resumed as appropriate. Additional Plan 11/23/2021 interval history: patient 81-year-old female with history of chronic respiratory hypercarbic failure and chronically on 3 L nasal cannula patient also has history COPD patient had been seen printed circuit designer in May of this year and noninvasive BiPAP was ordered however patient did not use the BiPAP and did not return to see her printed circuit designer, presented emergency department with shortness of hypercapnic respiratory failure patient was placed on BiPAP and this morning her symptoms have improved, patient was seen by her printed circuit designer and has set AVAP mode to help her tolerate, also added prednisone for her COPD. patient states feeling much better not a short of breath is compared to when she arrived, will continue present management will have a PT OT evaluate the and further recommendation to follow. Subjective Date/time seen: 11/23/21 16:35 Narrative: HPI- This is an 81-year-old female with chronic hypoxic and hypercapnic respiratory failure on 3 L nasal cannula, COPD with emphysema, obstructive sleep apnea (noncompliant with Trilogy NPPV at home) diastolic congestive heart failure, hypertension (not currently on medication), depression, and other comorbidities who presented to the emergency department via EMS from home for evaluation of shortness of breath. She is chronically debilitated and she spends a majority of her time in bed or in a wheelchair with minimal exertion due to shortness of breath and chronic pain. She tells me that she is always short of breath however her shortness of breath has become increasingly labored over the past 1 week. She is chronically on 3 L nasal cannula but did turned that up to 4 L without a whole lot of benefit. She states compliance with her home inhalers and she has been using her per her a rescue inhaler without much benefit. She has not used her nebulizer machine because she reportedly does not know how to use it. She has also not been wearing her Trilogy at nighttime for unclear reasons. On arrival today her ABG showed worsening hypercapnia from baseline and she has since been started on BiPAP. She has an occasional dry cough but that is unchanged. With her worsening shortness of breaths she has had some mild chest tightness because she feels as though she cannot get in a deep breath. Sh
--- NOTE | 2021-11-23 21:10 | PC.NURSE ---
Patient okay to go down to CT Scan without Nurse per Dr. Crow
--- NOTE | 2021-11-23 23:42 | PCRCNOTE ---
Pt placed on AVAPS at 1125 as well as apnea link spo2 study. Settings documented.
[2021-11-24] VITALS (21 sets, daily range): BP systolic 138–150; BP diastolic 71–90; PULSE 78–110; RESP 16–24; TEMP 36.4–37; O2SAT 94–99
[2021-11-24] MEDS: ALBUTEROL SULFATE NEB 2.5 MG/3 ML INH INHALATION ×6 (05:27→23:47)
[2021-11-24] MEDS: IPRATROPIUM BR 0.02% INH SOLN 0.5 MG/2.5 ML VIAL INHALATION ×6 (05:27→23:47)
[2021-11-24 05:37] LABS: Alveolar/Arterial O2 Gradient 60.4 mmHg; Base Excess ABG 7.6 mEq/l (+/-2.0); Fractional Inspired Oxygen 30 %; HCO3 ABG 33.1 mEq/l (22.0-26.0); Oxygen Content ABG 15.1 %vol (16.0-22.0); Oxygen Saturation ABG 97.2 % (95.0-100.0); Oxyhemoglobin 95.9 % THb (90.0-100.0); PCO2 ABG 51.2 mmHg (35.0-45.0); PO2 ABG 93.3 mmHg (80.0-100.0); PO2 FiO2 Ratio Arterial Blood 3.11 %; Total Hemoglobin 11.1 g/dL (12.0-18.0); pH ABG 7.429 (7.350-7.450)
[2021-11-24 05:38] LABS: Device BIPAP; Modified Allen's Test Pass; Site Drawn RIGHT RADIAL
[2021-11-24 05:39] LABS: Expiratory Pressure 5 cmH2O
[2021-11-24] MEDS: oxyCODONE HCL (*CRX) 5 MG TAB IR PO ×2 (08:20→14:58)
[2021-11-24] MEDS: oxyCODONE/ACETAMINOPHEN (*CRX) 5-325 MG TABLET 1 TABLET PO ×2 (08:25→14:59)
--- NOTE | 2021-11-24 08:27 | PM.PNPUL ---
Progress Note: A&P Assessment and Plan (1) Chronic respiratory failure with hypoxia and hypercapnia: Code(s): J96.11 - Chronic respiratory failure with hypoxia; J96.12 - Chronic respiratory failure with hypercapnia Status: Chronic Assessment and Plan: 11/23 patient with a history of chronic hypoxemic and hypercarbic respiratory failure from her COPD and has previously been prescribed a home noninvasive ventilator with the Astral mode through [facility] on 05/05/2021. This machine was delivered but the patient could not tolerate it due to uncomfortable mask and the breath being pushed in too hard. She did not follow up in the Pulmonary Clinic despite 2 attempts to call her to set up an appointment. She did not tolerate the BiPAP 14 over 6 because of gave too much pressure on the air. I switched her to a noninvasive ventilator with the a VATS mode and tighter the settings to comfort and she tolerated a AVAPS mode, rate of 14, tidal volume 450, EPAP 5, minimal inspiratory pressure 6, maximal inspiratory pressure 25, inspiratory time 1.2, rise of 3 and 30%. Her saturations were 98%. I have told the patient's to bring in her home machine and I will attempt to obtain a download 3 [facility] to see exactly what settings the patient was on. Once I have this information I will decide whether to use her home machine or the hospital machine with the above-mentioned AVAPS settings. Will check a blood gas in the morning and an overnight oximetry. 11/24 patient wore the hospital machine with AVAPS mode, rate of 14, tidal volume 450, EPAP 5, minimal inspiratory pressure 6, maximal inspiratory pressure 25, inspiratory time 1.2, rise of 3 and 30%.? patient says she wore the machine and did well but she had trouble sleeping because of leg pain. Blood gas prior to removal of the machine this morning was 7.43//. Patient had an overnight oximetry on the settings with a baseline saturation 95%, lowest saturation 54%, time with saturation less than or equal to 88% was 33 minutes or 10% of the monitored time. Overall these settings provide adequate ventilation and I will attempt to contact [facility] to determine if we can match these settings on her current home noninvasive ventilator. Repeat ON oximetry on 35% or 4 L bleed in. Discussed with Dr. Cantu, will follow with you. (2) COPD exacerbation: Code(s): J44.1 - Chronic obstructive pulmonary disease with (acute) exacerbation Status: Acute Assessment and Plan: 81-year-old woman with a history of COPD (tobacco 47 PY quit [address] chest 08/19/2017 with severe apical predominant centrilobular emphysema) with chronic hypoxemic and hypercarbic respiratory failure on 3 L nasal cannula 22/11 and noncompliant with her home noninvasive ventilator with the Astral mode. at baseline patient has a chair lift at home and the and the patient state that she can stand up and pivot to wheelchair. She has been nonambulatory for over a year. She is maintained on Symbicort and Spiriva. The patient has 3 days worsening cough, shortness of breath at rest, and dyspnea. she has a normal white blood cell count, no eosinophilia, positive D-dimer with lower extremity Dopplers. Her troponins are negative x3 and a BNP is 745. Chest x-ray is with no active disease. I will obtain a CT angiogram to exclude PE. Agree with treatment for COPD exacerbation including Solu-Medrol which I will switch to prednisone 40 mg p.o. starting today as she has no wheezes currently. I will continue albuterol and ipratropium nebulizers q.6 hours. I will initiate azithromycin 500 Q day. Since she is on steroids and maximal dose beta agonist and muscarinic antagonist I will discontinue Advair and incruse. Goal saturation 90-92% with supplemental oxygen. CTA later in day with no PE, moderate to severe apical predominant emphysema without focal infiltrates, effusions, bronchiectasis or ILD. 11/24 Patient
[2021-11-24] MEDS: CELECOXIB 200 MG CAPSULE PO (08:46)
[2021-11-24] MEDS: OPTI-GEN TAB 1 TABLET PO ×2 (08:46→17:46)
[2021-11-24] MEDS: ENOXAPARIN 40 MG/0.4 ML SYRINGE SUB-Q (08:47)
[2021-11-24] MEDS: amLODIPine BESYLATE 5 MG TABLET 10 MG PO (08:47)
[2021-11-24] MEDS: predniSONE 20 MG TABLET 40 MG PO (08:47)
[2021-11-24] MEDS: GABAPENTIN 100 MG CAPSULE PO ×2 (15:00→17:46)
--- NOTE | 2021-11-24 16:18 | PM.IMPN ---
Progress Note: A&P Assessment and Plan (1) Acute on chronic respiratory failure with hypoxia and hypercapnia: Code(s): J96.21 - Acute and chronic respiratory failure with hypoxia; J96.22 - Acute and chronic respiratory failure with hypercapnia Status: Acute Assessment and Plan: Secondary to noncompliance with Triology and nebulizers. Continue BiPAP overnight, ABGs have improved. (2) COPD exacerbation: Code(s): J44.1 - Chronic obstructive pulmonary disease with (acute) exacerbation Status: Chronic Assessment and Plan: Worsening shortness of breath is likely due to noncompliance as above. Currently on BiPAP; discussed the importance of using Trilogy at home. Continue scheduled bronchodilators q.6 hours and Solu-Medrol. No indication for antibiotics. (3) Uncontrolled hypertension: Code(s): I10 - Essential (primary) hypertension Status: Acute Assessment and Plan: Previously on amlodipine though that is not currently on her active medication list. Resume amlodipine 10 mg daily and trend blood pressures, making adjustments accordingly. (4) Chronic anemia: Code(s): D64.9 - Anemia, unspecified Status: Acute Assessment and Plan: Stable on review of previous labs. (5) Diastolic dysfunction: Code(s): I51.89 - Other ill-defined heart diseases Status: Acute Assessment and Plan: Compensated. Monitor volume status. (6) Chronic pain syndrome: Code(s): G89.4 - Chronic pain syndrome Status: Acute Assessment and Plan: Home medications will be reviewed and resumed as appropriate. Additional Plan 11/23/2021 interval history: patient 81-year-old female with history of chronic respiratory hypercarbic failure and chronically on 3 L nasal cannula patient also has history COPD patient had been seen button bradder in May of this year and noninvasive BiPAP was ordered however patient did not use the BiPAP and did not return to see her button bradder, presented emergency department with shortness of hypercapnic respiratory failure patient was placed on BiPAP and this morning her symptoms have improved, patient was seen by her button bradder and has set AVAP mode to help her tolerate, also added prednisone for her COPD. patient states feeling much better not a short of breath is compared to when she arrived, will continue present management will have a PT OT evaluate the and further recommendation to follow. 11/24/2021 interval history: patient 81-year-old female with history of chronic respiratory hypercarbic failure and chronically on 3 L nasal cannula patient also has history COPD patient had been seen button bradder in May of this year and noninvasive ventilator BiPAP was ordered however patient did not use the BiPAP and did not return to see her button bradder, presented emergency department with shortness of hypercapnic respiratory failure patient was placed on BiPAP and this morning her symptoms have improved, patient was seen by her button bradder and has set AVAP mode to help her tolerate, also added prednisone for her COPD. patient states feeling much better not a short of breath as compared to when she arrived, patient has a chronic pain and takes Percocet 10 mg Q 8 will resume and added gabapentin 100 mg t.i.d. patient's [id number] live present in the room, will continue present management will have a PT OT evaluate the and further recommendation to follow. Subjective Date/time seen: 11/24/21 16:18 11/24/2021 interval history: patient 81-year-old female with history of chronic respiratory hypercarbic failure and chronically on 3 L nasal cannula patient also has history COPD patient had been seen button bradder in May of this year and noninvasive ventilator BiPAP was ordered however patient did not use the BiPAP and did not return to see her button bradder, presented emergency department with shortness of
[2021-11-25] VITALS (15 sets, daily range): BP systolic 145–161; BP diastolic 64–74; PULSE 85–102; RESP 16–22; TEMP 36–36.3; O2SAT 91–100
[2021-11-25] MEDS: ALBUTEROL SULFATE NEB 2.5 MG/3 ML INH INHALATION ×4 (04:59→20:27)
[2021-11-25] MEDS: IPRATROPIUM BR 0.02% INH SOLN 0.5 MG/2.5 ML VIAL INHALATION ×4 (04:59→20:27)
[2021-11-25 05:10] LABS: Alveolar/Arterial O2 Gradient 144.1 mmHg; Base Excess ABG 12.7 mEq/l (+/-2.0); Fractional Inspired Oxygen 36 %; HCO3 ABG 39.3 mEq/l (22.0-26.0); Oxygen Content ABG 12.4 %vol (16.0-22.0); PO2 FiO2 Ratio Arterial Blood 1.16 %; Total Hemoglobin 11.3 g/dL (12.0-18.0); pH ABG 7.426 (7.350-7.450)
[2021-11-25 05:11] LABS: PCO2 ABG 61.1 mmHg (35.0-45.0)
[2021-11-25 05:12] LABS: PO2 ABG 41.7 mmHg (80.0-100.0)
[2021-11-25 05:16] LABS: Oxygen Saturation ABG 76.8 % (95.0-100.0)
[2021-11-25 05:17] LABS: Device BIPAP; Modified Allen's Test Pass; Oxyhemoglobin 78.2 % THb (90.0-100.0); Site Drawn RIGHT RADIAL
[2021-11-25 05:20] LABS: Expiratory Pressure 7 cmH2O
[2021-11-25] MEDS: oxyCODONE HCL (*CRX) 5 MG TAB IR PO (06:06)
[2021-11-25] MEDS: ENOXAPARIN 40 MG/0.4 ML SYRINGE SUB-Q (08:44)
[2021-11-25] MEDS: CELECOXIB 200 MG CAPSULE PO (08:44)
[2021-11-25] MEDS: GABAPENTIN 100 MG CAPSULE PO ×3 (08:44→16:17)
[2021-11-25] MEDS: predniSONE 20 MG TABLET 40 MG PO (08:44)
[2021-11-25] MEDS: amLODIPine BESYLATE 5 MG TABLET 10 MG PO (08:45)
[2021-11-25] MEDS: OPTI-GEN TAB 1 TABLET PO ×2 (08:45→16:17)
--- NOTE | 2021-11-25 09:15 | PC.NURSE ---
pt's , Yamil, called at shift change insisting on speaking with the nurse as pt wasn't breathing based on the labs uploaded to the pt portal. I returned his call at which time he continued to state that pt's labs indicated that she wasn't breathing. I attempted to explain to him that the lab was inaccurate due to not being drawn correctly and was being repeated. He demanded to be called immediately with any and all updates and changes including new lab results.
[2021-11-25 09:37] LABS: Base Excess ABG 8.8 mEq/l (+/-2.0); Carboxyhemoglobin 0.3 % THb (0-2.0); Fractional Inspired Oxygen 31 %; HCO3 ABG 35.7 mEq/l (22.0-26.0); Methemoglobin ABG 0.4 %THb (0-1.5); Oxygen Content ABG 15.6 %vol (16.0-22.0); Oxygen Saturation ABG 97.3 % (95.0-100.0); Oxyhemoglobin 96.2 % THb (90.0-100.0); PO2 ABG 100.2 mmHg (80.0-100.0); PO2 FiO2 Ratio Arterial Blood 3.23 %; Reduced Hemoglobin 3.1 %THb (0-5.0); Total Hemoglobin 11.4 g/dL (12.0-18.0); pH ABG 7.378 (7.350-7.450)
[2021-11-25 09:38] LABS: Device NASAL CANNULA; Modified Allen's Test Pass; Site Drawn LEFT RADIAL
[2021-11-25 09:41] LABS: PCO2 ABG 62.1 mmHg (35.0-45.0)
--- NOTE | 2021-11-25 10:16 | PC.NURSE ---
as requested by pt's , Yamil, I attempted to call him with updated labs and an update on pt's condition. there was no answer.
--- NOTE | 2021-11-25 10:48 | PM.PNPUL ---
Progress Note: A&P Assessment and Plan (1) Chronic respiratory failure with hypoxia and hypercapnia: Code(s): J96.11 - Chronic respiratory failure with hypoxia; J96.12 - Chronic respiratory failure with hypercapnia Status: Chronic Assessment and Plan: 11/23 patient with a history of chronic hypoxemic and hypercarbic respiratory failure from her COPD and has previously been prescribed a home noninvasive ventilator with the Astral mode through [facility] on 05/05/2021. This machine was delivered but the patient could not tolerate it due to uncomfortable mask and the breath being pushed in too hard. She did not follow up in the Pulmonary Clinic despite 2 attempts to call her to set up an appointment. She did not tolerate the BiPAP 14 over 6 because of gave too much pressure on the air. I switched her to a noninvasive ventilator with the a VATS mode and tighter the settings to comfort and she tolerated a AVAPS mode, rate of 14, tidal volume 450, EPAP 5, minimal inspiratory pressure 6, maximal inspiratory pressure 25, inspiratory time 1.2, rise of 3 and 30%. Her saturations were 98%. I have told the patient's to bring in her home machine and I will attempt to obtain a download 3 [facility] to see exactly what settings the patient was on. Once I have this information I will decide whether to use her home machine or the hospital machine with the above-mentioned AVAPS settings. Will check a blood gas in the morning and an overnight oximetry. 11/24 patient wore the hospital machine with AVAPS mode, rate of 14, tidal volume 450, EPAP 5, minimal inspiratory pressure 6, maximal inspiratory pressure 25, inspiratory time 1.2, rise of 3 and 30%.? patient says she wore the machine and did well but she had trouble sleeping because of leg pain. Blood gas prior to removal of the machine this morning was 7.43//. Patient had an overnight oximetry on the settings with a baseline saturation 95%, lowest saturation 54%, time with saturation less than or equal to 88% was 33 minutes or 10% of the monitored time. Overall these settings provide adequate ventilation and I will attempt to contact [facility] to determine if we can match these settings on her current home noninvasive ventilator. Repeat ON oximetry on 35% or 4 L bleed in. 11/25 Patient wore her home asked row machine with a rate of 14, tidal volume 450, EPAP 7, minimal pressure support 6, maximal pressure support 25, rise time 200 milliseconds, TI minimum 0.8, TI maximum 1.5 seconds, cycles 50% With 4 L bleed in. Patient had an ABG this morning of 7.43/61/42 which was a mixed cystic per the RT. Patient had an overnight oximetry with saturations less than or equal to 88% at 45 minutes or 16% of the monitored time. Overall patient stated that the machine gave her a sore throat. With the help of her [employer] I reprogrammed the machine for a respiratory rate of 20, increase the I-time to 1.0 and I placed the mask on the patient and she said that this felt better. Will try this tonight. Will add humidity once the patient gets home. Will check an overnight oximetry and an ABG on these new settings. Discussed with Dr. Hamilton, will follow with you. (2) COPD exacerbation: Code(s): J44.1 - Chronic obstructive pulmonary disease with (acute) exacerbation Status: Acute Assessment and Plan: 81-year-old woman with a history of COPD (tobacco 47 PY quit [address] chest 08/19/2017 with severe apical predominant centrilobular emphysema) with chronic hypoxemic and hypercarbic respiratory failure on 3 L nasal cannula 22/11 and noncompliant with her home noninvasive ventilator with the Astral mode. at baseline patient has a chair lift at home and the and the patient state that she can stand up and pivot to wheelchair. She has been nonambulatory for over a year. She is maintained on Symbicort and Spiriva. The patient has 3 days worsening cough, shortness of breath at res
[2021-11-25] MEDS: oxyCODONE/ACETAMINOPHEN (*CRX) 5-325 MG TABLET 1 TABLET PO (13:07)
--- NOTE | 2021-11-25 15:10 | PM.IMPN ---
Progress Note: A&P Assessment and Plan (1) Acute on chronic respiratory failure with hypoxia and hypercapnia: Code(s): J96.21 - Acute and chronic respiratory failure with hypoxia; J96.22 - Acute and chronic respiratory failure with hypercapnia Status: Acute Assessment and Plan: Secondary to noncompliance with Triology and nebulizers. will adjust avaps setting and repeat abg appreciate Pulmonary help (2) COPD exacerbation: Code(s): J44.1 - Chronic obstructive pulmonary disease with (acute) exacerbation Status: Chronic Assessment and Plan: Worsening shortness of breath is likely due to noncompliance as above. Currently on BiPAP; discussed the importance of using Trilogy at home. Continue scheduled bronchodilators q.6 hours and prednisone No indication for antibiotics. (3) Uncontrolled hypertension: Code(s): I10 - Essential (primary) hypertension Status: Acute Assessment and Plan: Previously on amlodipine though that is not currently on her active medication list. Resume amlodipine 10 mg daily and trend blood pressures, making adjustments accordingly. (4) Chronic anemia: Code(s): D64.9 - Anemia, unspecified Status: Acute Assessment and Plan: Stable on review of previous labs. (5) Diastolic dysfunction: Code(s): I51.89 - Other ill-defined heart diseases Status: Acute Assessment and Plan: Compensated. Monitor volume status. (6) Chronic pain syndrome: Code(s): G89.4 - Chronic pain syndrome Status: Acute Assessment and Plan: Home medications will be reviewed and resumed as appropriate. Additional Plan 11/23/2021 interval history: patient 81-year-old female with history of chronic respiratory hypercarbic failure and chronically on 3 L nasal cannula patient also has history COPD patient had been seen napper runner in May of this year and noninvasive BiPAP was ordered however patient did not use the BiPAP and did not return to see her napper runner, presented emergency department with shortness of hypercapnic respiratory failure patient was placed on BiPAP and this morning her symptoms have improved, patient was seen by her napper runner and has set AVAP mode to help her tolerate, also added prednisone for her COPD. patient states feeling much better not a short of breath is compared to when she arrived, will continue present management will have a PT OT evaluate the and further recommendation to follow. 11/24/2021 interval history: patient 81-year-old female with history of chronic respiratory hypercarbic failure and chronically on 3 L nasal cannula patient also has history COPD patient had been seen napper runner in May of this year and noninvasive ventilator BiPAP was ordered however patient did not use the BiPAP and did not return to see her napper runner, presented emergency department with shortness of hypercapnic respiratory failure patient was placed on BiPAP and this morning her symptoms have improved, patient was seen by her napper runner and has set AVAP mode to help her tolerate, also added prednisone for her COPD. patient states feeling much better not a short of breath as compared to when she arrived, patient has a chronic pain and takes Percocet 10 mg Q 8 will resume and added gabapentin 100 mg t.i.d. patient's [id number] live present in the room, will continue present management will have a PT OT evaluate the and further recommendation to follow. Subjective Date/time seen: 11/25/21 15:10 No new complaints Exam Narrative: morbidly obese Patient is comfortable, NAD HEENT: eyes are clear and none icteric LUNGS: normal respiratory effort ABD: distended Lower extremities: no edema SKIN: nonjaundiced Neuro: grossly intact. Objective Data Vital Signs Vital Signs: Vital Signs - 24 hr 11/24/21 16:06 11/24/21 16:34 11/24/21 16:40 Temperature 97.6 F Pul
[2021-11-26] VITALS (15 sets, daily range): BP systolic 147–161; BP diastolic 66–81; PULSE 74–97; RESP 18–20; TEMP 36.3–36.6; O2SAT 87–100
[2021-11-26] MEDS: oxyCODONE HCL (*CRX) 5 MG TAB IR PO ×2 (03:05→13:39)
[2021-11-26] MEDS: ALBUTEROL SULFATE NEB 2.5 MG/3 ML INH INHALATION ×3 (05:11→14:25)
[2021-11-26] MEDS: IPRATROPIUM BR 0.02% INH SOLN 0.5 MG/2.5 ML VIAL INHALATION ×3 (05:11→14:25)
[2021-11-26 05:30] LABS: Alveolar/Arterial O2 Gradient 90.7 mmHg; Base Excess ABG 9.8 mEq/l (+/-2.0); Fractional Inspired Oxygen 40 %; HCO3 ABG 35.9 mEq/l (22.0-26.0); Oxygen Saturation ABG 98.5 % (95.0-100.0); Oxyhemoglobin 97.1 % THb (90.0-100.0); PCO2 ABG 57.2 mmHg (35.0-45.0); PO2 ABG 128.7 mmHg (80.0-100.0); PO2 FiO2 Ratio Arterial Blood 3.22 %; Total Hemoglobin 10.8 g/dL (12.0-18.0); pH ABG 7.416 (7.350-7.450)
[2021-11-26 05:32] LABS: Device OTHER DEVICE; Modified Allen's Test Pass; Site Drawn LEFT RADIAL
[2021-11-26] MEDS: amLODIPine BESYLATE 5 MG TABLET 10 MG PO (08:24)
[2021-11-26] MEDS: ENOXAPARIN 40 MG/0.4 ML SYRINGE SUB-Q (08:24)
[2021-11-26] MEDS: OPTI-GEN TAB 1 TABLET PO (08:24)
[2021-11-26] MEDS: CELECOXIB 200 MG CAPSULE PO (08:24)
[2021-11-26] MEDS: GABAPENTIN 100 MG CAPSULE PO ×2 (08:24→13:40)
[2021-11-26] MEDS: predniSONE 20 MG TABLET 40 MG PO (08:24)
--- NOTE | 2021-11-26 08:58 | PM.PNPUL ---
Progress Note: A&P Assessment and Plan (1) Chronic respiratory failure with hypoxia and hypercapnia: Code(s): J96.11 - Chronic respiratory failure with hypoxia; J96.12 - Chronic respiratory failure with hypercapnia Status: Chronic Assessment and Plan: 11/23 patient with a history of chronic hypoxemic and hypercarbic respiratory failure from her COPD and has previously been prescribed a home noninvasive ventilator with the Astral mode through [facility] on 05/05/2021. This machine was delivered but the patient could not tolerate it due to uncomfortable mask and the breath being pushed in too hard. She did not follow up in the Pulmonary Clinic despite 2 attempts to call her to set up an appointment. She did not tolerate the BiPAP 14 over 6 because of gave too much pressure on the air. I switched her to a noninvasive ventilator with the a VATS mode and tighter the settings to comfort and she tolerated a AVAPS mode, rate of 14, tidal volume 450, EPAP 5, minimal inspiratory pressure 6, maximal inspiratory pressure 25, inspiratory time 1.2, rise of 3 and 30%. Her saturations were 98%. I have told the patient's to bring in her home machine and I will attempt to obtain a download 3 [facility] to see exactly what settings the patient was on. Once I have this information I will decide whether to use her home machine or the hospital machine with the above-mentioned AVAPS settings. Will check a blood gas in the morning and an overnight oximetry. 11/24 patient wore the hospital machine with AVAPS mode, rate of 14, tidal volume 450, EPAP 5, minimal inspiratory pressure 6, maximal inspiratory pressure 25, inspiratory time 1.2, rise of 3 and 30%.? patient says she wore the machine and did well but she had trouble sleeping because of leg pain. Blood gas prior to removal of the machine this morning was 7.43//. Patient had an overnight oximetry on the settings with a baseline saturation 95%, lowest saturation 54%, time with saturation less than or equal to 88% was 33 minutes or 10% of the monitored time. Overall these settings provide adequate ventilation and I will attempt to contact [facility] to determine if we can match these settings on her current home noninvasive ventilator. Repeat ON oximetry on 35% or 4 L bleed in. 11/25 Patient wore her home asked row machine with a rate of 14, tidal volume 450, EPAP 7, minimal pressure support 6, maximal pressure support 25, rise time 200 milliseconds, TI minimum 0.8, TI maximum 1.5 seconds, cycles 50% With 4 L bleed in. Patient had an ABG this morning of 7.43/61/42 which was a mixed cystic per the RT. Patient had an overnight oximetry with saturations less than or equal to 88% at 45 minutes or 16% of the monitored time. Overall patient stated that the machine gave her a sore throat. With the help of her [employer] company I reprogrammed the machine for a respiratory rate of 20, increase the I-time to 1.0 and I placed the mask on the patient and she said that this felt better. Will try this tonight. Will add humidity once the patient gets home. Will check an overnight oximetry and an ABG on these new settings. 11/26 Patient said she wore the noninvasive home asked Dale she last night with rate of 20, tidal volume 450, EPAP 7, minimal pressure support 6, maximal pressure support 25, rise time 200 milliseconds, TI minimum 1.0, TI maximum 1.5 seconds, cycles 50% With 5 L bleed in but she was unable to sleep all night. The strap hurt her ear and the air felt like it was still going into heart. Patient had a blood gas this morning prior to removal of the machine with a pH of 7.42/57/129. Patient had an overnight oximetry on the 5 L with time saturation less than or equal to 88% at a 44 minutes or 11% of the monitored time. The current settings provide adequate ventilation and looking at the overnight oximetry tracing the only time the patient was low was the 1st 1/2 hour and then it remained above 90. I wi
--- NOTE | 2021-11-26 12:27 | PM.DS ---
DS: Admitting Diagnosis Discharge Date November 26, 2021 Admitting Diagnosis Acute on chronic hypercapnic respiratory failure DS: Discharge Diagnosis Discharge Diagnosis (1) Acute on chronic respiratory failure with hypoxia and hypercapnia: Code(s): J96.21 - Acute and chronic respiratory failure with hypoxia; J96.22 - Acute and chronic respiratory failure with hypercapnia Status: Acute (2) COPD exacerbation: Code(s): J44.1 - Chronic obstructive pulmonary disease with (acute) exacerbation Status: Chronic (3) Uncontrolled hypertension: Code(s): I10 - Essential (primary) hypertension Status: Acute (4) Chronic anemia: Code(s): D64.9 - Anemia, unspecified Status: Acute (5) Diastolic dysfunction: Code(s): I51.89 - Other ill-defined heart diseases Status: Acute (6) Chronic pain syndrome: Code(s): G89.4 - Chronic pain syndrome Status: Acute DS: Summary Hospital Course Hospital Course: Patient's has history of chronic COPD chronic hypercapnic respiratory failure. She came in with worsening respiratory symptoms and had some CO2 retention. Patient was started on antibiotics and steroids for COPD exacerbation. She has done well from that standpoint. Pulmonary did evaluate the patient and recommended BiPAP but patient was unable to tolerate. Nonetheless Pulmonary still thinks patient has non invasive ventilation. This will need to be set up and adjusted as an outpatient. For her COPD and pulmonary infection patient will be discharged on azithromycin for 2 more days. Patient also be discharged on Spiriva, Symbicort and albuterol rescue inhaler. Patient will follow Pulmonary in 2 weeks as an outpatient. She will also be set up on home oxygen Time Spent with Patient Time attestation: Total time spent providing and/or coordinating discharge services: Exam Narrative: General: alert and oriented Psych: appropriate mood nad affect Eyes: PERRLA Neck: Trachea midline, no new lesions Skin: no changes Lungs: CTA Cardiac: Normal S1,S2, no MGR ABD: soft, nd, nt, nbs Ext: no new lesions, no cce Vasc: Pulses intact DS: Data Data Completed and Pending Labs on day of discharge: Labs from last 24 hours 11/26/21 05:15 Puncture Site Left radial ABG pH 7.416 ABG pCO2 57.2 H ABG pO2 128.7 H ABG PO2/FiO2 Ratio 3.22 ABG HCO3 35.9 H ABG O2 Saturation 98.5 ABG O2 Content 15.0 L ABG Base Excess 9.8 A-a Gradient 90.7 Oxyhemoglobin 97.1 Total Hemoglobin 10.8 L O2 Delivery Device Other device O2 Liters/Min 5.0 FiO2 40 Discharge Plan Discharge Attending physician on discharge: Toro Mccloud Consulting providers: Toro Barnes Discharging Clinician: Toro Mccloud Patient Disposition: Home, Self-Care Activity: no preference Diet: as tolerated Stand Alone Forms: General Discharge Information Follow-up/Referrals: Toro Barnes MD [Physician] - Discharge Medications: New azithromycin 500 mg tablet 500 mg PO DAILY 2 Days Qty: 2 0RF Rx Instructions: start on day 2 of therapy Continued celecoxib 200 mg capsule 200 mg PO DAILY Qty: 30 5RF Rx Instructions: Take with food. Spiriva with HandiHaler 18 mcg capsule, w/inhalation device 1 cap inhalation DAILY Rx Instructions: INHALE THE CONTENTS OF 1 CAPSULE BY MOUTH VIA HANDIHALER DAILY docusate sodium 100 mg Capsule 100 mg PO Q12H PRN (Reason: Constipation) Qty: 30 0RF hydroxyzine HCl 25 mg tablet 25 mg PO HS PRN (Reason: Anxiety) Rx Instructions: Take at HS zolpidem 5 mg tablet 5 mg PO HS PreserVision AREDS-2 [phone] [id number] Capsule 1 tablet PO BID budesonide-formoterol [Symbicort] 160-4.5 mcg/actuation HFA aerosol inhaler 2 puff inhalation Q12H Qty: 10.2 5RF Rx Instructions: INHALE 2 PUFFS BY MOUTH EVERY 12 HOURS albuterol sulfate [ProAir HFA] 90
--- NOTE | 2021-11-26 13:48 | HOMEO2EVAL ---
Evaluation was performed at [facility] Home Oxygen Evaluation RC: Home Oxygen (O2) Evaluation Start: 11/26/21 08:57 Freq: ONCE Status: Active Protocol: RPE Activity Type Activity Date Activity User E-sign Co-sign Detail Recorded Client Recorded Date Recorded By Document 11/26/21 13:30 TORIBIO [id number] 11/26/21 13:48 TORIBIO Document 11/26/21 13:32 TORIBIO [id number] 11/26/21 13:48 TORIBIO Document 11/26/21 13:35 TORIBIO [id number] 11/26/21 13:48 TORIBIO Document 11/26/21 13:40 TORIBIO [id number] 11/26/21 13:48 TORIBIO Document 11/26/21 13:43 TORIBIO [id number] 11/26/21 13:48 TORIBIO 11/26/21 11/26/21 11/26/21 13:30 13:32 13:35 Home O2 Evaluation Test Phase Resting Resting Resting Oxygen Delivery Room Air Nasal Cannula Nasal Cannula Oxygen Flow Rate (L/min) 1 2 Pulse Oximetry (90-100 %) 87 L 87 L 94 Pulse Rate (60-100 beats/min) 80 83 Home Oxygen Evaluation Comments Treatment Charges O2 Evaluation - Inpatient 11/26/21 11/26/21 13:40 13:43 Home O2 Evaluation Test Phase Exercise Resting Oxygen Delivery Nasal Cannula Nasal Cannula Oxygen Flow Rate (L/min) 2 2 Pulse Oximetry (90-100 %) 92 94 Pulse Rate (60-100 beats/min) 95 89 Home Oxygen Evaluation Comments Pt states she 2L resting and isnt able to exertion, no ambulate, we change from did arm and leg prior home o2 exercises and evalTeresita Levin boosted up in is pt DME bed for exertion Treatment Charges
--- NOTE | 2021-11-26 13:49 | PCRCNOTE ---
Home o2 eval done, pt doesnt walk, did arm/leg exercises and boosted up in bed for exertion. 2L rest and exertion. BARBI brady
== END 2021-11-26 17:08 | disposition home or self-care (01) | DRG 189 ==
LOC: ANHED 14:00 → ANHIMU 16:57 → ANH3MEDSUR 11-26 12:26 → ANHIMU 11-27 11:42
PROVIDERS: Emergency Medicine; Internal Medicine Pulmonary Disease; Physician Assistant; Admitting Provider Family Medicine; Emergency Provider Emergency Medicine; PCP Internal Medicine; Visit Provider Chiropractor
DX: I50.32 Chronic diastolic (congestive) heart failure; J96.21 Acute and chronic respiratory failure with hypoxia; E87.1 Hypo-osmolality and hyponatremia; K51.90 Ulcerative colitis, unspecified, without complications; J96.22 Acute and chronic respiratory failure with hypercapnia; J43.2 Centrilobular emphysema; Z20.822 Contact with and (suspected) exposure to COVID-19; D64.9 Anemia, unspecified; E66.01 Morbid (severe) obesity due to excess calories; E04.1 Nontoxic single thyroid nodule; E55.9 Vitamin D deficiency, unspecified; F32.9 Major depressive disorder, single episode, unspecified; G89.4 Chronic pain syndrome; G47.33 Obstructive sleep apnea (adult) (pediatric); H26.9 Unspecified cataract; I87.2 Venous insufficiency (chronic) (peripheral); I11.0 Hypertensive heart disease with heart failure; I35.0 Nonrheumatic aortic (valve) stenosis; K21.9 Gastro-esophageal reflux disease without esophagitis; M54.9 Dorsalgia, unspecified; M25.512 Pain in left shoulder; M25.511 Pain in right shoulder; M25.562 Pain in left knee; R73.03 Prediabetes; Z99.81 Dependence on supplemental oxygen; Z87.891 Personal history of nicotine dependence; Z91.19 Patient's noncompliance with other medical treatment and regimen; Z96.651 Presence of right artificial knee joint; Z68.36 Body mass index [BMI] 36.0-36.9, adult
CPT/HCPCS: 36415; 36600; 71046; 71275; 80048; 80053; 82375; 82805; 83050; 83690; 83735; 83880; 84484; 85025; 85027; 85380; 85610; 85730; 87502; 93005; 93970; 94002; 94003; 94618; 94640; 94660; 94762; 99291; A9270; C9803; J0131; J0456; J1650; J2060; J2930; J7512; Q9967; U0003; U0005

== ENCOUNTER 2022-02-05 23:00 | Inpatient (IN) | payer MEDICARE, SELFPAY ==
--- NOTE | ~2022-02-05 | XR_ITS ---
EXAMINATION: XR chest 1V portable DATE: 02/11/2022 07:49 INDICATION: Chronic obstructive pulmonary disease exacerbation. TECHNIQUE: A single frontal view of the chest was obtained. COMPARISON: Chest single view 02/10/22, chest CT 02/07/2022 FINDINGS: There is mild atelectasis in left lower lung zone. No pleural effusion or pneumothorax. The heart size is normal. A right internal jugular central venous catheter is seen with tip in the super ior vena cava. IMPRESSION: 1. Mild atelectasis in left lower lung zone. Reviewed, dictated and finalized at location A.
--- NOTE | ~2022-02-05 | CT_ITS ---
EXAMINATION: CT brain wo con DATE: 02/08/2022 01:17 INDICATION: Unresponsive. TECHNIQUE: Computed tomography (CT) of the head was performed without intravenous contrast. The mA wa s adjusted according to patient size. Iterative reconstruction technique was employed. The dose-lengt h product was 681.00 mGy-cm. COMPARISON: Head CT 11/11/2019 FINDINGS: There are scattered areas of low attenuation in the cerebral white matter. There is no intr acranial hemorrhage, acute infarction, or abnormal intracranial mass lesion. The ventricles are marcella l in size. There are likely changes of ocular lens replacement surgeries. There are bilateral mastoid effusions. There is mild mucosal thickening in the paranasal sinuses. There are likely changes of oc ular lens replacement surgeries. IMPRESSION: 1. Stable extensive nonspecific cerebral white matter disease, which likely represents chronic small vessel ischemic disease. Reviewed, dictated and finalized at location A. IMPRESSION: 1. Stable extensive nonspecific cerebral white matter disease, which likely rep resents chronic small vessel ischemic disease.
--- NOTE | ~2022-02-05 | XR_ITS ---
EXAM: XR abdomen NG/feed tube insert DATE: 02/07/2022 20:40 HISTORY: og insertion . COMPARISON: CT chest abdomen and pelvis, same date. FINDINGS: Clear lung bases. NG tube, tip and side port project over the stomach and are subdiaphragm atic. Uncomplicated appearing lumbar fusion hardware. Interval decreased gastric distention. Otherwis e normal partially visualized bowel gas pattern. No organomegaly. No abnormal abdominal calcification . Regional bones and soft tissues normal for age. IMPRESSION: NG tube, in good position. Interval decreased gastric distention. Reviewed, dictated and finalized at location K.
--- NOTE | ~2022-02-05 | XR_ITS ---
EXAMINATION: XR chest port-a-cath/central INDICATION: Right IJ catheter placement TECHNIQUE: Portable AP chest at 0900 hours COMPARISON: 0509 hours FINDINGS: A right internal jugular catheter has been inserted which ends with its tip in the midsuper ior vena cava. The endotracheal tube ends approximately 4.0 cm above the sabino. The nasogastric tube is in the stomach. There are small pleural effusions. No pneumothorax is identified. The heart size is normal. 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 Changes of posterior fusion procedure a re noted in the lumbar spine. IMPRESSION: 1. Right internal jugular catheter inserted ending in the midsuperior vena cava, otherwise no change. Reviewed, dictated and finalized at location A. IMPRESSION: 1. Right internal jugular catheter inserted ending in the midsuperior vena cava , otherwise no change.
--- NOTE | ~2022-02-05 | XR_ITS ---
EXAMINATION: XR chest 1V portable DATE: 02/12/2022 05:56 INDICATION: Chronic obstructive pulmonary disease exacerbation. TECHNIQUE: A single frontal view of the chest was obtained. COMPARISON: Chest single view 02/11/2022, chest CT 02/07/2022 FINDINGS: The lungs are hyperexpanded, consistent with chronic obstructive pulmonary disease. No pneu monia, pleural effusion, or pneumothorax. The heart size is normal. A right internal jugular central venous catheter is seen with tip in the superior vena cava. IMPRESSION: 1. Chronic obstructive pulmonary disease. Reviewed, dictated and finalized at location A.
--- NOTE | ~2022-02-05 | XR_ITS ---
EXAMINATION: XR chest 1V portable Exam Date/Time: 02/14/2022 16:02 CDT HISTORY: SOB. HX COPD, CHF, AORTIC STENOSIS Comparison: 02/12/2022. RESULT: Lines, tubes, and devices: Right IJ central line terminating in the SVC. Lungs and pleura: Segmental left basilar consolidation with left angle blunting. Cardiomediastinal silhouette: Stable. Other: No acute osseous or upper abdominal finding. IMPRESSION: Left basilar opacities, likely atelectasis or aspiration given the rapid onset, although infection re madyson possible. Small left pleural effusion. Reviewed, dictated and finalized at location K. IMPRESSION: Left basilar opacities, likely atelectasis or aspiration given the rapid onset, although infection remains possible. Small left pleural effusion.
--- NOTE | ~2022-02-05 | XR_ITS ---
EXAMINATION: XR chest ET placement Exam Date/Time: 02/07/2022 20:30 CDT HISTORY: intubation Comparison: CT chest abdomen and pelvis, same date. RESULT: Lines, tubes, and devices: Partially visualized lumbar fusion hardware.Endotracheal tube terminating 3.7 cm above the sabino. NG tube, tip and side port project over the stomach. Lungs and pleura: Clear. Cardiomediastinal silhouette: Stable. Other: No acute osseous or upper abdominal finding. IMPRESSION: Endotracheal and NG tube, in good position. Reviewed, dictated and finalized at location K.
--- NOTE | ~2022-02-05 | XR_ITS ---
EXAMINATION: XR chest 1V portable DATE: 02/08/2022 06:00 INDICATION: Respiratory failure. TECHNIQUE: A single frontal view of the chest was obtained. COMPARISON: Chest single view 02/07/2022, chest CT 02/07/2022 FINDINGS: There are airspace opacities at the lung bases. There are small pleural effusions. No pneum othorax. The heart size is normal. The nasogastric tube tip is beyond the inferior margin of the radi ograph, but at least to the stomach. The endotracheal tube tip is 3.8 cm above the sabino. There are changes of posterior fusion procedure in lumbar spine. IMPRESSION: 1. Small pleural effusions. 2. Worsened airspace opacities at the lung bases, consistent with atelectasis versus pneumonia. Reviewed, dictated and finalized at location A. IMPRESSION: 1. Small pleural effusions. 2. Worsened airspace opacities at the lung bases, consistent with atelectasis v ersus pneumonia.
--- NOTE | ~2022-02-05 | XR_ITS ---
EXAMINATION: XR chest 1V portable 02/05/2022 23:51 INDICATION: Shortness of breath PROCEDURE: AP portable chest COMPARISON: Comparison to multiple prior studies sequentially, with oldest reviewed study dated 06/2021. FINDINGS: The lungs are clear. The cardiomediastinal silhouette is within normal limits. There are no pleural effusions. There is no pneumothorax suspected. Severe degenerative changes of the glenoh umeral joints. No acute osseous abnormality. IMPRESSION: 1: NO ACUTE CARDIOPULMONARY DISEASE. Reviewed, dictated and finalized at location A.
--- NOTE | ~2022-02-05 | XR_ITS ---
EXAMINATION: XR abdomen obstructive series DATE: 02/08/2022 09:12 INDICATION: Abdominal distention TECHNIQUE: Upright and supine views of the abdomen were obtained. COMPARISON: CT from yesterday FINDINGS: The nasogastric tube within the stomach. There is no free intraperitoneal gas or evidence o f bowel obstruction. There is a moderate volume of colonic stool. Surgical changes are noted in the l umbar spine. IMPRESSION: 1. Nonobstructive bowel gas pattern. Reviewed, dictated and finalized at location A.
--- NOTE | ~2022-02-05 | XR_ITS ---
EXAMINATION: XR chest 1V portable DATE: 02/10/2022 05:34 INDICATION: Acute respiratory failure. TECHNIQUE: A single frontal view of the chest was obtained. COMPARISON: Chest single view 02/09/2022, chest CT 02/07/2022 FINDINGS: There is mild atelectasis at the lung bases. No pleural effusion or pneumothorax. The heart size is normal. The endotracheal tube tip is 2.2 cm above the sabino. The nasogastric tube tip is be yond the inferior margin of the radiograph, but at least to the stomach. A right internal jugular mignon tral venous catheter is seen with tip in the superior vena cava. There are changes of posterior fusio n procedure in lumbar spine. IMPRESSION: 1. Mild atelectasis at the lung bases. Reviewed, dictated and finalized at location A.
--- NOTE | ~2022-02-05 | XR_ITS ---
EXAMINATION: XR chest 2V DATE: 02/16/2022 05:37 INDICATION: Shortness of breath TECHNIQUE: frontal view of the chest was obtained. COMPARISON: Chest radiograph dated 02/14/2022 FINDINGS: Calcified nodule at the right lung base consistent with old granulomatous disease. Improved aeration at the left lung base. No other airspace opacities, pulmonary edema, pleural effusion or pneumothorax . The cardiomediastinal silhouette is normal. Partial visualized pedicle screws for a posterior lumba r spinal fusion which extends beyond the inferior margin of the [id number]-qw-yndo. Advanced osteoarthriti s at the bilateral glenohumeral joints. IMPRESSION: 1. No acute cardiopulmonary disease with resolution of prior opacities in the left lower lung zone. Reviewed, dictated and finalized at location A. IMPRESSION: 1. No acute cardiopulmonary disease with resolution of prior opacities in the l eft lower lung zone.
--- NOTE | ~2022-02-05 | CT_ITS ---
EXAMINATION: CT chest abdomen pelvis wo con DATE: 02/07/2022 16:56 INDICATION: abdominal pain, chest pain, nausea, vomiting . TECHNIQUE: Computed tomography (CT) of the chest, abdomen, and pelvis was performed with 100 mL Omnip aque-350 intravenous contrast. Automated exposure control and iterative reconstruction technique were employed. The dose-length product was 1718.69 mGy-cm. COMPARISON: CTPA 11/23/2021 FINDINGS: Thoracic aorta: Anemic appearing blood pool. Moderate arch calcification. Lung parenchyma and airways: Senescent changes. Right lower lobe granuloma. Thoracic inlet, axillae and chest wall: 2.8 cm right thyroid lobe hypodensity. No axillary lymphadeno jennifer. Mediastinum: No mass or lymphadenopathy. Heart and pericardium: Normal heart size. Aortic valve and mitral calcifications. No pericardial effu gilmar. Coronary artery calcifications: Mild. Pleura: Small volume left pleural fluid collection. Thoracic bones: No acute osseous finding in the chest. ABDOMEN/PELVIS: Exam limited by beam hardening from lumbar fusion hardware and arm down positioning. Liver: Normal. Biliary/Gallbladder: Gallbladder is partially contracted. No bile duct dilation. Pancreas: No mass or duct dilation. Spleen: Normal. Adrenals: Likely subcentimeter left adrenal adenoma. Kidneys: Punctate nonobstructing right renal calculi. No hydronephrosis. No suspicious mass. GI tract: The stomach is dilated. No small or large bowel dilation. Normal appendix. Mesentery/Peritoneum: No ascites, mass, or free air. Retroperitoneum: No mass. Atherosclerotic abdominal aortic and/or arterial calcifications. Pelvis: The bladder is decompressed by a Funk. The remaining pelvic organs are within normal limits Soft Tissues: Small fat-containing umbilical and bilateral inguinal hernias. Moderate body wall edema . Abdominopelvic bones: No acute osseous finding in the abdomen/pelvis. 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 IMPRESSION: Exam limitations noted above. 2.8 cm right thyroid mass, recommend outpatient thyroid ultrasound for further evaluation. Small left pleural effusion. Gastric dilation, without definite obstructing lesio n. Reviewed, dictated and finalized at location K. IMPRESSION: Exam limitations noted above. 2.8 cm right thyroid mass, recommend outpatient t hyroid ultrasound for further evaluation. Small left pleural effusion. Gastric dilation, without definite obstructing lesion.
--- NOTE | ~2022-02-05 | XR_ITS ---
EXAM: XR abdomen/kub 1V DATE: 02/13/2022 17:19 HISTORY: abdominal pain/distention.constipation . COMPARISON: 02/08/2022. FINDINGS: Posterior lumbar fusion hardware. Clear lung bases. Normal bowel gas pattern. No organomega ly. No abnormal abdominal calcification. Degenerative changes in the lower lumbar spine and bilateral hips. IMPRESSION: No radiographic evidence of obstruction or ileus. Reviewed, dictated and finalized at location K.
--- NOTE | ~2022-02-05 | XR_ITS ---
EXAMINATION: XR chest 1V portable DATE: 02/09/2022 05:33 INDICATION: Intubated. TECHNIQUE: A single frontal view of the chest was obtained. COMPARISON: Chest single view 02/08/2022, chest CT 02/07/2022 FINDINGS: There is mild atelectasis at left lung base. No pleural effusion or pneumothorax. The heart size is normal. The endotracheal tube tip is 3.4 cm above the sabino. The nasogastric tube tip is in the stomach. A right internal jugular central venous catheter is seen with tip in the superior vena cava. There are changes of posterior fusion procedure in lumbar spine. IMPRESSION: 1. Mild atelectasis at left lung base. Reviewed, dictated and finalized at location A.
--- NOTE | 2022-02-05 23:13 | ECG_ITS ---
Measurements Intervals [place] Rate: 96 P: 67 WV: 158 QRS: 35 QRSD: 85 T: 56 QT: 319 QTc: 405 Interpretive Statements SINUS RHYTHM WITH OCCASIONAL VENTRICULAR PREMATURE COMPLEXES WITH OCCASIONAL SUPRAVENTRICULAR PREMATURE COMPLEXES POOR R-WAVE PROGRESSION ABNORMAL ECG COMPARED TO ECG 11/22/2021 12:29:56 DIFFERENT PRECORDIAL LEAD POSITION Electronically Signed On 02-06-2022 7:53:27 CDT by Toro Humphreys M.D.
[2022-02-05 23:18] VITALS: PULSE 100; RESP 23; O2SAT 100
[2022-02-05 23:43] LABS: Basophils Absolute Auto 0.1 K/mm3 (0.0-0.1); Basophils Percent Auto 0.9 % (0.2-1.2); Eosinophils Absolute Auto 0.7 K/mm3 (0-0.3); Eosinophils Percent Auto 11.4 % (0-4.4); Hematocrit 33.3 % (37.0-47.0); Immature Granulocyte Absolute 0.02 K/mm3 (0.00-0.031); Immature Granulocyte Percent A 0.3 % (0-0.5); Lymphocytes Absolute Auto 0.67 K/mm3 (0.9-3.2); Lymphocytes Percent Auto 10.3 % (18.3-44.2); Mean Corpuscular Hemoglobin 26.2 pg (26-34); Mean Corpuscular Volume 87.4 fl (80-100); Monocytes Absolute Auto 0.8 K/mm3 (0.1-0.6); Monocytes Percent Auto 12.2 % (2.6-8.5); Neutrophils Absolute Auto 4.2 K/mm3 (1.3-6.7); Neutrophils Percent Auto 64.9 % (45.5-73.1); Platelet Count Result 188 k/mm3 (150-375); Red Blood Count 3.81 M/mm3 (4.2-5.4); Red Cell Distribution Width 13.7 % (11.5-14.5); White Blood Count 6.5 K/mm3 (4.5-10.0)
[2022-02-05 23:51] VITALS: BP 164/100; PULSE 98; RESP 24; TEMP 36.9; O2SAT 100
[2022-02-06] VITALS (30 sets, daily range): BP systolic 150–186; BP diastolic 76–98; PULSE 72–112; RESP 16–26; TEMP 36.4–36.8; O2SAT 95–100; BMI 38.4
[2022-02-06 00:01] LABS: Alanine Aminotransferase 18 U/L (6-35); Albumin Level 3.8 g/dL (3.5-5.1); Alkaline Phosphatase 62 U/L (38-126); Aspartate Amino Transferase 24 U/L (14-36); Bilirubin,Total 0.3 mg/dL (0.2-1.3); Blood Urea Nitrogen 22 mg/dL (7-17); Calcium 9.3 mg/dL (8.4-10.2); Carbon Dioxide > 40 mmol/L (22-30); Chloride 88 mmol/L (98-107); Estimated CRCL calculation 56 ml/min; Estimated Glomerular Filt Rate > 60; Glucose 146 mg/dL (65-110); Magnesium 1.7 mg/dL (1.6-2.3); Potassium 4.5 mmol/L (3.4-5.0); Sodium 132 mmol/L (137-145)
[2022-02-06 00:06] LABS: NT Pro B Type Natriuretic Pept 512 pg/mL (5-100); Troponin I < 0.012 ng/mL (0.000-0.034)
[2022-02-06 00:08] LABS: Alveolar/Arterial O2 Gradient 79.7 mmHg; Fractional Inspired Oxygen 40 %; HCO3 ABG 41.8 mEq/l (22.0-26.0); Oxygen Content ABG 15.3 %vol (16.0-22.0); Oxygen Saturation ABG 97.6 % (95.0-100.0); Oxyhemoglobin 96.8 % THb (90.0-100.0); PO2 ABG 112.6 mmHg (80.0-100.0); PO2 FiO2 Ratio Arterial Blood 2.82 %; Total Hemoglobin 11.1 g/dL (12.0-18.0); pH ABG 7.332 (7.350-7.450)
[2022-02-06 00:17] LABS: PCO2 ABG 80.8 mmHg (35.0-45.0)
[2022-02-06 00:18] LABS: Device BIPAP; Expiratory Pressure 7 cmH2O; Inspiratory Pressure 12 cmH2O; Modified Allen's Test Pass; Site Drawn LEFT RADIAL
--- NOTE | 2022-02-06 00:32 | PM.IMHP ---
H&P: HPI History of Present Illness Date/Time: 02/06/22 00:32 Chief Complaint: shortness of breath Narrative: This is an 81-year-old female with past medical history significant for COPD / emphysema, chronic hypoxic respiratory failure on supplemental oxygen at home, diastolic heart failure, chronic pain syndrome, gastroesophageal reflux disease, aortic stenosis. Patient presents to the emergency room due to worsening shortness of breath most of the history has been obtained upon reviewing medical records at the time of my visit patient is on BiPAP. preliminary workup was significant for blood gas pH is 7.33 pCO2 [address] of chest abdomen and pelvis was reported as: IMPRESSION: Exam limitations noted above. 2.8 cm right thyroid mass, recommend outpatient thyroid ultrasound for further evaluation. Small left pleural effusion. Gastric dilation, without definite obstructing lesion. Review of Systems Review of Systems: ROS unobtainable: Yes unobtainable due to medical condition ( patient on BiPAP) PMFSH Past Medical History Medical History Abdominal bruit Renal US negative for stenosis 08/2019. Adhesive capsulitis of right shoulder Aortic stenosis Mild on echocardiogram from October 2018. Borderline diabetic The patient stated she is not taking anything for her diabetes and she is not diabetic. Cataracts, bilateral Maturing cataracts bilaterally. Chronic diastolic (congestive) heart failure (Unknown) Echocardiogram October 2018 demonstrated normal left ventricular systolic function with EF of 65-70% grade 1 diastolic dysfunction mild aortic stenosis with a normal RVSP of 34. Chronic hyponatremia Chronic pain syndrome With chronic back, bilateral shoulder, and left knee pain. Chronic respiratory failure with hypoxia and hypercapnia COPD with emphysema Dependence on supplemental oxygen On 3 liters nasal cannula. Depression Diastolic dysfunction Essential (primary) hypertension (Unknown) Fractured coccyx Gastroesophageal reflux disease History of angina History of tobacco abuse Insomnia Liver mass 21 mm likely benign noted on imaging for 2017. Obstructive sleep apnea Noncompliant with Trilogy NPPV at home. Thyroid nodule On CT scan from July 2017. Ulcerative colitis Venous stasis dermatitis of both lower extremities Vitamin D deficiency Surgical History Surgical History History of arthroscopy of left knee (~2000) History of lumbar surgery (~2001) History of tonsillectomy History of total right knee replacement (~01/2012) History of ventral hernia repair With abdominoplasty. Family History Family History Mother Diabetes mellitus Father COPD (chronic obstructive pulmonary disease) Social History Social History (Updated 02/17/22 @ 21:19 by Gisella Lima NP) Social History: The patient lives at home with her of 60+ years. 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 She has a 50 pack year smoking history and quit in 2007. No alcohol or illicit substance use. She mostly uses a wheelchair now. Surrogate medical decision maker: aYmil Mcclurejoanne, spouse. Code status: Full code. She would not however want to be on long-term life support. Smoking packs per day: 1 Smoking cigarettes per day: 20.0 Years smoked: 49 Smoking pack-years: 49.00 Smoking status: Former smoker Tobacco type: cigarettes Alcohol intake: never Substance use: never Substance use type: does not use Spiritual care concerns: No Agree to blood products: Yes Has the Lack of Transportation Kept You From Medical Appointments or From Getting Medications?: No Within the Past 12 Months, Were You Worried Whether Your Food Would Run Out Before You Got Money to Buy More?: Never True What is Your Housing Situation Today?: I Have Housing Are You Worrie
--- NOTE | 2022-02-06 00:47 | ED.SOB ---
HPI - SOB/Dyspnea General Chief Complaint: Shortness of Breath/Dyspnea Stated Complaint: SOB ON CPAP Time Seen by Provider: 02/05/22 23:10 Source: patient Mode of arrival: EMS Limitations: no limitations History of Present Illness HPI Narrative: 81-year-old with a history of COPD, hypertension, diastolic CHF was brought in from home with complaints of severe shortness of breath since this evening. Patient states for the last 3 days she has been having difficulty in breathing, she states she has been using her inhalers with minimal relief. She denies any fever. Has occasional cough which is nonproductive. As per the EMS patient was on BiPAP but was still struggling to breathe. MD elicited complaint: shortness of breath Pertinent past history: COPD Context: anxiety Timing: constant Severity: moderate Exacerbating factors: nothing Relieving factors: oxygen Known history of: COPD Associated symptoms: denies other symptoms Treatment prior to arrival: oxygen, bronchodilator and NIPPV Related Data Home oxygen amount: 3 liters Home Medications Medication Instructions Recorded Confirmed vit C 250 mg-vit E 90 mg-zinc 40 1 tablet PO BID 07/12/19 11/22/21 mg-copper 1 [id number] capsule (PreserVision AREDS-2) hydroxyzine HCl 25 mg tablet 25 mg PO HS PRN Anxiety 11/22/21 11/22/21 zolpidem 5 mg tablet 5 mg PO HS 11/22/21 11/22/21 Allergies Allergy/AdvReac Type Severity Reaction Status Date / Time aluminum aspirin Allergy Mild pt does Verified 11/03/21 12:31 not know aspirin Allergy Mild rash Verified 11/03/21 12:31 Sulfa (Sulfonamide Allergy Mild THROAT, Verified 11/03/21 12:31 Antibiotics) TONGUE SWELLING,Unknown hydralazine AdvReac Chest Pain Verified 11/03/21 12:31 Review of Systems Review of Systems: All systems reviewed & are unremarkable except as noted in HPI and below Constitutional: Constitutional: Reports no additional constitutional complaints Eyes: Eyes: Reports no additional eye complaints ENT: Reports system reviewed and no additional complaints, except as documented Cardiovascular: Cardiovascular: Reports no additional cardiovascular complaints Respiratory: Respiratory: Reports as per HPI Gastrointestinal: Gastrointestinal: Reports no additional gastrointestinal complaints Musculoskeletal: Musculoskeletal: Reports no additional musculoskeletal complaints Neurologic: Reports system reviewed and no additional complaints, except as documented [facility] Past Medical History Medical History Abdominal bruit Renal US negative for stenosis 08/2019. Adhesive capsulitis of right shoulder Aortic stenosis Mild on echocardiogram from October 2018. Borderline diabetic The patient stated she is not taking anything for her diabetes and she is not diabetic. Cataracts, bilateral Maturing cataracts bilaterally. Chronic diastolic (congestive) heart failure (Unknown) Echocardiogram October 2018 demonstrated normal left ventricular systolic function with EF of 65-70% grade 1 diastolic dysfunction mild aortic stenosis with a normal RVSP of 34. Chronic hyponatremia Chronic pain syndrome With chronic back, bilateral shoulder, and left knee pain. Chronic respiratory failure with hypoxia and hypercapnia COPD with emphysema Dependence on supplemental oxygen On 3 liters nasal cannula. Depression Diastolic dysfunction Essential (primary) hypertension (Unknown) Fractured coccyx Gastroesophageal reflux disease History of angina History of tobacco abuse Insomnia Liver mass 21 mm likely benign noted on imaging for 2017. Obstructive sleep apnea Noncompliant with Trilogy NPPV at home. Thyroid nodule On CT scan from July 2017. Ulcerative colitis Venous stasis dermatitis of both lower extremities Vitamin D deficiency Surgical History Surgical History History of arthroscopy of left knee (~2000) His
[2022-02-06] MEDS: IPRATROPIUM BR 0.02% INH SOLN 0.5 MG/2.5 ML VIAL INHALATION ×4 (02:25→20:14)
[2022-02-06] MEDS: ALBUTEROL SULFATE NEB 2.5 MG/3 ML INH 5 MG INHALATION ×4 (02:25→20:14)
[2022-02-06 03:09] LABS: Add Urine Microscopic? YES; Appearance Urine Cloudy (Clear); Bacteria Urine Trace /hpf; Bilirubin Urine Negative (Negative); Blood Urine Negative (Negative); Color Urine Yellow (Yellow); Glucose Urine UA Negative (Negative); Ketones Urine Trace mg/dL (Negative); Leukocyte Esterase Ur 3+ LEU/UL (Negative); Mucus Urine Rare /lpf; Nitrate Urine Negative (Negative); Protein Urine 2+ mg/dL (Negative); Specific Grav Ur 1.019 (1.001-1.035); Squamous Epithelial Cell Urine Few /hpf (Few); Urobilinogen Urine Negative mg/dL (<2.0); WBC Urine 16-20 /hpf
[2022-02-06] MEDS: LORazepam INJ (*CRX) 2 MG/ML VIAL 1 MG IV PUSH (03:52)
[2022-02-06] MEDS: MORPHINE SULFATE (*CRX) 2 MG/ML INJ 1 MG IV PUSH (03:53)
--- NOTE | 2022-02-06 04:35 | PC.NURSE ---
0300- RN called Report to IMU nurse. 0310- Pt very SOB after getting on bedpan. RR up to 24-26 and SpO2 down to 88% on Bi-pap and not tolerating well. RN called Dr. Hawthorne and received new orders. FiO2 increased to 45% and new meds ordered due to SOB and anxiety. 0410- Pt much more comfortable after medications given. taken to floor on Bi-pap with RN and RT, tolerated well.
[2022-02-06] MEDS: methylPREDNISolone SOD SUCC 125 MG VIAL 60 MG IV PUSH ×4 (06:18→23:41)
--- NOTE | 2022-02-06 14:09 | PM.IMPN ---
Progress Note: A&P Assessment and Plan (1) Acute on chronic respiratory failure with hypoxia and hypercapnia: Code(s): J96.21 - Acute and chronic respiratory failure with hypoxia; J96.22 - Acute and chronic respiratory failure with hypercapnia Status: Acute (2) Decompensated COPD with exacerbation (chronic obstructive pulmonary disease): Code(s): J44.1 - Chronic obstructive pulmonary disease with (acute) exacerbation Status: Acute (3) Uncontrolled hypertension: Code(s): I10 - Essential (primary) hypertension Status: Acute (4) GERD (gastroesophageal reflux disease): Code(s): K21.9 - Gastro-esophageal reflux disease without esophagitis Status: Acute (5) Chronic anemia: Code(s): D64.9 - Anemia, unspecified Status: Acute Plan Acute on chronic hypercapnic respiratory failure placed on BiPAP 04/07. BNP 512 troponin negative normal WBC ABG 7.33/80/112/41. Suspected COPD exacerbation steroid IV and azithromycin. Chest x-ray is negative for any acute cardiopulmonary disease. Will check CTA to rule out PE Continue BiPAP as needed Chronic respiratory failure on home oxygen COPD exacerbation UTI Altered mental status DANETTE diagnosed 8 years ago could not tolerate CPAP. History of tobacco abuse 47 pack year quit 2004 Diastolic dysfunction grade 1 Morbid obesity Hypertension Depression Anxiety Code status full code DVT prophylaxis Lovenox Subjective Date/time seen: 02/06/22 14:09 Interval history: HPI:this is an 81-year-old female with past medical history significant for COPD / emphysema, chronic hypoxic respiratory failure on supplemental oxygen at home, diastolic heart failure, chronic pain syndrome, gastroesophageal reflux disease, aortic stenosis.? Patient presents to the emergency room due to worsening shortness of breath most of the history has been obtained upon reviewing medical records at the time of my visit patient is on BiPAP 02/06/2022 presented from home with severe shortness of breath since past few days. Minimal Pierre helped with inhaler. No fever. Occasional cough reported. Has underlying COPD. Feels a bit better today. Remains on BiPAP Review of Systems Review of Systems: ROS unobtainable: Yes unobtainable due to mental status Exam Narrative: GENERAL:? well-nourished, in acute distress. HEAD: Normocephalic, atraumatic. EYES: PERRLA and EOMI. NECK: Supple. CHEST: Diminished breath sound bilaterally mild end-expiratory wheezes HEART: Regular rate and rhythm.? No murmur heard.? Normal peripheral pulses. ABDOMEN: Soft, nontender, nondistended, normal active bowel sounds. EXTREMITIES: Normal range of motion.? Bilateral brawny edema lower extremities SKIN: Warm, dry, no rash. NEURO: No focal deficits.? Alert and oriented x3. PSYCH: Normal mood and affect. Objective Data Vital Signs Vital Signs: Vital Signs - 24 hr 02/05/22 23:18 02/05/22 23:51 02/06/22 02:25 Temperature 98.5 F Pulse Rate 100 98 95 Respiratory Rate 23 H 24 H 22 H Blood Pressure 164/100 H Pulse Oximetry 100 100 Oxygen Delivery BiPAP BiPAP Fraction of Inspired Oxygen 40 02/06/22 03:10 02/06/22 00:44 02/06/22 04:10 Temperature Pulse Rate Respiratory Rate Blood Pressure Pulse Oximetry 100 Oxygen Delivery BiPAP BiPAP BiPAP Fraction of Inspired Oxygen 45 02/06/22 04:20 02/06/22 02:25 02/06/22 02:25 Temperature 97.6 F Pulse Rate 112 H 97 97 Respiratory Rate 20 21 H 22 H Blood Pressure 161/97 H Pulse Oximetry 100 98 Oxygen Delivery BiPAP Fraction of Inspired Oxygen 02/06/22 02:40 02/06/22 05:35 02/06/22 06:00 Temperature Pulse Rate 98 100 92 Respiratory Rate 24 H 18 Blood Pressure Pulse Oximetry 99 Oxygen Delivery BiPAP Fraction of Inspired Oxygen 02/06/22 07:45 02/06/22 07:52 02/06/22 07:54 Temperature 97.8 F Pulse Rate 100 96 95 Respiratory Rate 20 20 19 Blood Pressure 150/98 H
[2022-02-06 14:27] LABS: Alveolar/Arterial O2 Gradient 66.6 mmHg; Base Excess ABG 12.8 mEq/l (+/-2.0); Fractional Inspired Oxygen 35 %; HCO3 ABG 39.2 mEq/l (22.0-26.0); Oxygen Content ABG 15.4 %vol (16.0-22.0); Oxygen Saturation ABG 98.1 % (95.0-100.0); Oxyhemoglobin 97.4 % THb (90.0-100.0); PO2 ABG 112.7 mmHg (80.0-100.0); PO2 FiO2 Ratio Arterial Blood 3.22 %; Total Hemoglobin 11.1 g/dL (12.0-18.0)
[2022-02-06 14:30] LABS: Device NON-INVASIVE VENT; Modified Allen's Test Pass; PCO2 ABG 60.4 mmHg (35.0-45.0); Site Drawn LEFT RADIAL
[2022-02-06 14:31] LABS: Non-Invasive Vent Rate 16 /MIN
[2022-02-06 14:32] LABS: Non-Invasive Expiratory Pressure 7 CMH2O; Non-Invasive Inspiratory Pressure 12 CMH2O
[2022-02-06] MEDS: ACETAMINOPHEN 325 MG TABLET 650 MG PO (15:23)
[2022-02-06] MEDS: OPTI-GEN TAB 1 TABLET PO (18:12)
[2022-02-06] MEDS: FLUTICASONE/SALMETEROL 115-21 MCG INHALER 1 PUFF 2 PUFF INHALATION (20:14)
[2022-02-06] MEDS: hydrOXYzine HCL 25 MG TABLET PO (20:42)
[2022-02-07] VITALS (42 sets, daily range): BP systolic 65–193; BP diastolic 39–163; PULSE 87–117; RESP 12–28; TEMP 36.8–37.9; O2SAT 90–100
[2022-02-07] MEDS: ENALAPRILAT 1.25 MG/ML VIAL 2.5 MG IV PUSH (00:59)
[2022-02-07] MEDS: ALPRAZolam (*CRX) 0.125 MG TABLET PO (00:59)
[2022-02-07] MEDS: ALBUTEROL SULFATE NEB 2.5 MG/3 ML INH 5 MG INHALATION ×4 (02:52→20:45)
[2022-02-07] MEDS: ONDANSETRON INJ 4 MG/2 ML VIAL IV PUSH (05:02)
[2022-02-07] MEDS: methylPREDNISolone SOD SUCC 125 MG VIAL 60 MG IV PUSH ×3 (05:03→17:18)
[2022-02-07 05:05] LABS: Hematocrit 33.2 % (37.0-47.0); Hemoglobin 10.1 g/dL (12.0-15.0); Immature Granulocyte Absolute 0.06 K/mm3 (0.00-0.031); Lymphocytes Absolute Auto 0.35 K/mm3 (0.9-3.2); Lymphocytes Percent Auto 5.8 % (18.3-44.2); Mean Corpuscular HGB Conc 30.4 g/dl (32-36); Mean Corpuscular Hemoglobin 25.5 pg (26-34); Mean Corpuscular Volume 83.8 fl (80-100); Mean Platelet Volume 11.2 fl (7.4-10.4); Monocytes Absolute Auto 0.2 K/mm3 (0.1-0.6); Monocytes Percent Auto 3.8 % (2.6-8.5); Neutrophils Absolute Auto 5.4 K/mm3 (1.3-6.7); Neutrophils Percent Auto 89.4 % (45.5-73.1); Platelet Count Result 212 k/mm3 (150-375); Red Blood Count 3.96 M/mm3 (4.2-5.4); Red Cell Distribution Width 13.7 % (11.5-14.5)
[2022-02-07 05:20] LABS: Alanine Aminotransferase 18 U/L (6-35); Alkaline Phosphatase 69 U/L (38-126); Aspartate Amino Transferase 23 U/L (14-36); Bilirubin,Total 0.3 mg/dL (0.2-1.3); Blood Urea Nitrogen 20 mg/dL (7-17); Calcium 9.2 mg/dL (8.4-10.2); Carbon Dioxide > 40 mmol/L (22-30); Chloride 85 mmol/L (98-107); Estimated CRCL calculation 76 ml/min; Estimated Glomerular Filt Rate > 60; Glucose 172 mg/dL (65-110); Magnesium 1.8 mg/dL (1.6-2.3); Potassium 4.3 mmol/L (3.4-5.0); Sodium 131 mmol/L (137-145)
[2022-02-07] MEDS: ENOXAPARIN 40 MG/0.4 ML SYRINGE SUB-Q (09:04)
[2022-02-07] MEDS: CELECOXIB 200 MG CAPSULE PO (09:04)
[2022-02-07] MEDS: OPTI-GEN TAB 1 TABLET PO ×2 (09:04→17:19)
[2022-02-07] MEDS: IPRATROPIUM BR 0.02% INH SOLN 0.5 MG/2.5 ML VIAL INHALATION ×3 (10:01→20:45)
[2022-02-07] MEDS: CALCIUM CARBONATE (TUMS) 500 MG (200 MG ELEMENTAL) PO (10:42)
[2022-02-07] MEDS: amLODIPine BESYLATE 5 MG TABLET PO (10:42)
--- NOTE | 2022-02-07 13:19 | PM.IMPN ---
Progress Note: A&P Assessment and Plan (1) Acute on chronic respiratory failure with hypoxia and hypercapnia: Code(s): J96.21 - Acute and chronic respiratory failure with hypoxia; J96.22 - Acute and chronic respiratory failure with hypercapnia Status: Acute (2) Decompensated COPD with exacerbation (chronic obstructive pulmonary disease): Code(s): J44.1 - Chronic obstructive pulmonary disease with (acute) exacerbation Status: Acute (3) Uncontrolled hypertension: Code(s): I10 - Essential (primary) hypertension Status: Acute (4) GERD (gastroesophageal reflux disease): Code(s): K21.9 - Gastro-esophageal reflux disease without esophagitis Status: Acute (5) Chronic anemia: Code(s): D64.9 - Anemia, unspecified Status: Acute Plan Acute on chronic hypercapnic respiratory failure placed on BiPAP 04/07. BNP 512 troponin negative normal WBC ABG 7.33/80/112/41. Suspected COPD exacerbation steroid IV and azithromycin. Chest x-ray is negative for any acute cardiopulmonary disease. Will check CTA to rule out PE but patient refused. She reports she has allergy to dye. She however received CTA during her last admission without issues. She still refuses to get the contrast dye. Will order CT chest without contrast Continue BiPAP as needed during daytime and schedule at night. Uses NIV at night at home which she is not compliant with Abdominal pain upper abdomen will check CT abdomen without contrast to rule out gallbladder etiology/constipation/obstruction Chronic respiratory failure on home oxygen and noninvasive ventilation COPD exacerbation steroid and azithromycin UTI on ceftriaxone follow urine culture which showed contaminated sample Altered mental status improving likely due to hypercapnia. Chronic pain DANETTE diagnosed 8 years ago could not tolerate CPAP. History of tobacco abuse 47 pack year quit 2004 Diastolic dysfunction grade 1 Morbid obesity Hypertension Depression Anxiety Code status full code DVT prophylaxis Lovenox Subjective Date/time seen: 02/07/22 13:19 Interval history: HPI:this is an 81-year-old female with past medical history significant for COPD / emphysema, chronic hypoxic respiratory failure on supplemental oxygen at home, diastolic heart failure, chronic pain syndrome, gastroesophageal reflux disease, aortic stenosis.? Patient presents to the emergency room due to worsening shortness of breath most of the history has been obtained upon reviewing medical records at the time of my visit patient is on BiPAP 02/06/2022 presented from home with severe shortness of breath since past few days. Minimal Pierre helped with inhaler. No fever. Occasional cough reported. Has underlying COPD. Feels a bit better today. Remains on BiPAP 02/07/2022 no overnight events. On of confusion per nursing staff. Discussed with the nursing staff. Gets anxious. Received alprazolam last night. Review of Systems Review of Systems: All systems reviewed & are unremarkable except as noted in HPI and below Exam Narrative: GENERAL:? well-nourished, in acute distress. HEAD: Normocephalic, atraumatic. EYES: PERRLA and EOMI. NECK: Supple. CHEST: Diminished breath sound bilaterally mild end-expiratory wheezes HEART: Regular rate and rhythm.? No murmur heard.? Normal peripheral pulses. ABDOMEN: Soft, tender epigastric and right upper quadrant, nondistended, normal active bowel sounds. EXTREMITIES: Normal range of motion.? Bilateral brawny edema lower extremities SKIN: Warm, dry, no rash. NEURO: No focal deficits.? Alert and oriented x3. PSYCH: Normal mood and affect. Objective Data Vital Signs Vital Signs: Vital Signs - 24 hr 02/06/22 14:02 02/06/22 14:03 02/06/22 14:22 Temperature Pulse Rate 106 H 105 H 105 H Respiratory Rate 22 H 22 H 20 Blood Pressure Pulse Oximetry 97 Oxygen Delivery BiPAP Oxygen Flow Rate Fraction of Inspired Oxygen
[2022-02-07] MEDS: METOCLOPRAMIDE HCL INJ 10 MG/2 ML VIAL 5 MG IV PUSH (18:50)
[2022-02-07] MEDS: BISACODYL 10 MG SUPPOSITORY RECTAL (18:50)
--- NOTE | 2022-02-07 19:30 | PM.EVENT ---
Event Note Event Note Event Note: I received a call from the patient's nurse at about 19:40 on 02/07/2022 with a change in patient condition. At baseline she is alert and oriented however over the last couple of hours she has become somnolent and she has had a couple of episodes of emesis. On exam her abdomen is distended with tympany and she has what appears to be bilious emesis on her gown. She was minimally responsive and would only open her eyes to deep sternal rub however she was not following commands. ABG showed a pCO2 of just over 80 however her pH was fairly compensated. CT of the abdomen pelvis showed gastric distension and due to concerns for aspiration given her change in mentation, the decision was made to intubate the patient for airway protection. This was discussed with the food porter who agreed with transfer to the ICU and intubation. Etiology of her mental status changes is not entirely clear as her pCO2 was not a whole lot higher than what she typically runs. Brain CT has been ordered. CBC, CMP, lactic acid level also ordered. Critical Care Time Critical Care Time: Yes Total Critical Care Time: 35 Attestation: Due to a high probability of clinically significant, life threatening deterioration, the patient required my highest level of preparedness to intervene emergently and I personally spent this critical care time directly and personally managing the patient. This critical care time included obtaining a history; examining the patient; pulse oximetry; ordering and review of studies; arranging urgent treatment with development of a management plan; evaluation of patient's response to treatment; frequent reassessment; and discussions with other providers. It was exclusive of separately billable procedures and treating other patients and teaching time. Please see Assessment and Plan section and the rest of the note for further information on patient assessment and treatment.
[2022-02-07 19:44] LABS: Alveolar/Arterial O2 Gradient 72.9 mmHg; Base Excess ABG 16.2 mEq/l (+/-2.0); Fractional Inspired Oxygen 48 %; HCO3 ABG 45.3 mEq/l (22.0-26.0); Oxygen Content ABG 15.8 %vol (16.0-22.0); PO2 ABG 173.3 mmHg (80.0-100.0); PO2 FiO2 Ratio Arterial Blood 3.61 %; Total Hemoglobin 11.2 g/dL (12.0-18.0); pH ABG 7.345 (7.350-7.450)
[2022-02-07 19:46] LABS: Device NASAL CANNULA; Modified Allen's Test Pass; Site Drawn LEFT RADIAL
--- NOTE | 2022-02-07 20:09 | PC.NURSE ---
Increased patient decline noted in patient orientation, requiring sternal rub at one point Belem HAIDER notified. Patient moved to ICU 6. Report given to Sirena PENA.
--- NOTE | 2022-02-07 20:15 | WPDPROCEDUR ---
Procedures Intubation Intubation Date: 02/07/22 Intubation Time: 20:15 Consent: Family gave consent via phone. Sedative: etomidate Mg given: 20 Paralytic: succinylcholine Mg given: 100 Laryngoscope: fiber optic video scope Assist device used: fiber optic device ET tube size: 7.5 Tube secured depth (cm): 21 Tube secured location: teeth Tube placement confirmation: visualized tube passing through cords, equal breath sounds bilaterally, no breath sounds over epigastrium and confirmation by capnometry Patient tolerated procedure: well Intubation complications: none (Easy, atraumatic intubation on 1st attempt.) Additional comments: Case discussed with resident athletic trainer, Dr. Simms. He gave recommendations for vent settings and sedation. Dr. Albania Curry, attending ED physician, was available if needed.
[2022-02-07] MEDS: ETOMIDATE 20 MG/10 ML AMPUL IV PUSH (20:17)
[2022-02-07] MEDS: SUCCINYLCHOLINE CHLORIDE 20 MG/ML 10 ML VIAL 100 MG IV PUSH (20:17)
[2022-02-07] MEDS: MIDAZOLAM 100MG/NS 100ML(*CRX) 100 MG/100 ML BAG IV CONT (20:34)
[2022-02-07] MEDS: fentaNYL CITRATE INJ (*CRX) 100 MCG/2 ML VIAL 50 MCG IV PUSH (20:46)
[2022-02-07] MEDS: MIDAZOLAM HCL (*CRX) 2 MG/2 ML VIAL IV PUSH ×2 (20:46→21:20)
[2022-02-07] MEDS: RAPID SEQUENCE INTUBATION KIT 1 EACH (20:47)
[2022-02-07] MEDS: FENTANYL 2,500MCG/NS250ML(*CRX 2,500 MCG/250 ML BAG IV CONT (21:39)
[2022-02-07] MEDS: SODIUM CHLORIDE 0.9% IV 1,000 ML 999 ML IV CONT (21:40)
[2022-02-07] MEDS: MINERAL OIL/WHITE PETROLATUM OINTMENT 1 APPLIC EACH EYE (21:40)
[2022-02-07 22:35] LABS: Alveolar/Arterial O2 Gradient 130.1 mmHg; Base Excess ABG 13.6 mEq/l (+/-2.0); Fractional Inspired Oxygen 50 %; HCO3 ABG 41.4 mEq/l (22.0-26.0); Oxygen Content ABG 14.9 %vol (16.0-22.0); Oxygen Saturation ABG 98.7 % (95.0-100.0); Oxyhemoglobin 97.8 % THb (90.0-100.0); Total Hemoglobin 10.6 g/dL (12.0-18.0); pH ABG 7.375 (7.350-7.450)
[2022-02-07 22:36] LABS: PCO2 ABG 72.4 mmHg (35.0-45.0)
[2022-02-07 22:37] LABS: Arterial Blood Gas PEEP 5 cmH2O; Arterial Blood Gas Vent Mode CMV; Arterial Blood Gas Ventilator rate 20 /MIN; Device VENTILATOR; Modified Allen's Test Pass; Site Drawn RIGHT RADIAL
[2022-02-07 22:38] LABS: Arterial Blood Gas Tidal Volume 350 ml
[2022-02-08] VITALS (46 sets, daily range): BP systolic 88–143; BP diastolic 43–99; PULSE 80–99; RESP 18–23; TEMP 36.4–37.9; O2SAT 93–100; BMI 37.4
[2022-02-08] MEDS: PANTOPRAZOLE SODIUM IV 40 MG VIAL IV PUSH ×2 (00:13→09:28)
[2022-02-08 00:20] LABS: Gastric Negative Control Negative; Gastric Positive Control Positive; Occult Blood Gastric Fluid Negative; pH Gastric Fluid 3 (1-8)
[2022-02-08 01:35] LABS: Basophils Percent Auto 0.2 % (0.2-1.2); Hematocrit 30.3 % (37.0-47.0); Immature Granulocyte Absolute 0.04 K/mm3 (0.00-0.031); Immature Granulocyte Percent A 0.4 % (0-0.5); Lymphocytes Absolute Auto 0.33 K/mm3 (0.9-3.2); Lymphocytes Percent Auto 3.4 % (18.3-44.2); Mean Corpuscular HGB Conc 29.7 g/dl (32-36); Mean Corpuscular Hemoglobin 26.1 pg (26-34); Mean Corpuscular Volume 87.8 fl (80-100); Mean Platelet Volume 10.5 fl (7.4-10.4); Monocytes Percent Auto 10.6 % (2.6-8.5); Neutrophils Absolute Auto 8.4 K/mm3 (1.3-6.7); Neutrophils Percent Auto 85.4 % (45.5-73.1); Platelet Count Result 186 k/mm3 (150-375); Red Blood Count 3.45 M/mm3 (4.2-5.4); Red Cell Distribution Width 14.1 % (11.5-14.5); White Blood Count 9.8 K/mm3 (4.5-10.0)
[2022-02-08 01:45] LABS: Lactic Acid Reflex 0.7 mmol/L (0.7-2.0)
[2022-02-08 01:46] LABS: Anion Gap 3 mmol/L (8-16); Blood Urea Nitrogen 39 mg/dL (7-17); Calcium 8.2 mg/dL (8.4-10.2); Carbon Dioxide 39 mmol/L (22-30); Chloride 87 mmol/L (98-107); Estimated CRCL calculation 65 ml/min; Estimated Glomerular Filt Rate > 60; Glucose 157 mg/dL (65-110); Magnesium 1.8 mg/dL (1.6-2.3); Phosphorus 2.5 mg/dL (2.5-4.5); Potassium 4.3 mmol/L (3.4-5.0); Sodium 129 mmol/L (137-145)
[2022-02-08 01:59] LABS: INR 1.1; Prothrombin Time 13.4 Seconds (11.1-14.7)
[2022-02-08 02:00] LABS: Partial Thromboplastin Time 28.2 SECONDS (22.3-36.8)
[2022-02-08] MEDS: methylPREDNISolone SOD SUCC 125 MG VIAL 60 MG IV PUSH ×4 (02:15→17:26)
[2022-02-08] MEDS: METOCLOPRAMIDE HCL INJ 10 MG/2 ML VIAL 5 MG IV PUSH ×4 (02:16→17:26)
[2022-02-08] MEDS: ALBUTEROL SULFATE NEB 2.5 MG/3 ML INH 5 MG INHALATION ×5 (02:53→23:23)
[2022-02-08] MEDS: IPRATROPIUM BR 0.02% INH SOLN 0.5 MG/2.5 ML VIAL INHALATION ×5 (02:53→23:23)
[2022-02-08 05:41] LABS: Fractional Inspired Oxygen 35 %; HCO3 ABG 42.3 mEq/l (22.0-26.0); Oxygen Content ABG 13.6 %vol (16.0-22.0); Oxygen Saturation ABG 97.5 % (95.0-100.0); Oxyhemoglobin 96.4 % THb (90.0-100.0); PO2 ABG 99.4 mmHg (80.0-100.0); PO2 FiO2 Ratio Arterial Blood 2.84 %; Total Hemoglobin 9.9 g/dL (12.0-18.0); pH ABG 7.446 (7.350-7.450)
[2022-02-08 05:42] LABS: PCO2 ABG 62.9 mmHg (35.0-45.0)
[2022-02-08 05:43] LABS: Arterial Blood Gas PEEP 5 cmH2O; Arterial Blood Gas Tidal Volume 350 ml; Arterial Blood Gas Vent Mode CMV; Arterial Blood Gas Ventilator rate 20 /MIN; Device VENTILATOR; Modified Allen's Test Pass; Site Drawn RIGHT RADIAL
[2022-02-08 06:19] LABS: Glucose Point of Care 154 mg/dl (65-105)
[2022-02-08] MEDS: ALBUTEROL SULFATE NEB 2.5 MG/3 ML INH 15 MG (08:20)
--- NOTE | 2022-02-08 08:33 | WPDCNINT ---
Assessment and Plan Assessment and plan (1) Acute on chronic respiratory failure with hypoxia and hypercapnia: Code(s): J96.21 - Acute and chronic respiratory failure with hypoxia; J96.22 - Acute and chronic respiratory failure with hypercapnia Status: Acute Assessment and Plan: Acute on chronic respiratory failure likely related to COPD exacerbation, hypercapnic respiratory failure, aspiration pneumonitis/pneumonia -patient was intubated on 02/07/2022 after she was found to be less responsive, patient had an emesis, she was intubated for impending respiratory failure/airway protection -currently on CMV mode of ventilation, peep of 5 in 35% FiO2 -chest x-ray and ABGs reviewed -patient continues to have diffuse wheezing, will order continues nebulizer and Solu-Medrol 125 mg IV x1 -continue steroids, ceftriaxone azithromycin (02/06) -continue bronchodilators (2) COPD with emphysema: Code(s): J43.9 - Emphysema, unspecified Status: Acute Assessment and Plan: Continue mechanical ventilation, steroids, antibiotics and bronchodilators (3) New onset type 2 diabetes mellitus: Code(s): E11.9 - Type 2 diabetes mellitus without complications Status: Acute Assessment and Plan: Continue sliding scale insulin Accu-Chek (4) Essential (primary) hypertension: Onset Date: Unknown Code(s): I10 - Essential (primary) hypertension Status: Acute Assessment and Plan: Blood pressures have been stable, will continue to monitor (5) Anemia: Code(s): D64.9 - Anemia, unspecified Status: Acute Assessment and Plan: Patient has a history of anemia, hemoglobin remains stable (6) Electrolyte abnormality: Code(s): E87.8 - Other disorders of electrolyte and fluid balance, not elsewhere classified Status: Acute Assessment and Plan: 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 This critical care time included obtaining a history; examining the patient; pulse oximetry; ordering and review of studies; arranging urgent treatment with development of a management plan; evaluation of patient's response to treatment; frequent reassessment; and discussions with other providers. It was exclusive of separately billable procedures and treating other patients and teaching time. Please see Assessment and Plan section and the rest of the note for further information on patient assessment and treatment [employer] Services Specialist Consult Note Consult date: 02/08/22 Reason for consult: Acute on chronic respiratory failure, requiring intubation for airway protection, altered mental status, hypercapnia, emesis, risk of aspiration HPI: Belinda Black is a 81 year old female with pertinent past medical history Modic stenosis chronic diastolic heart failure, chronic hyponatremia, chronic pain syndrome from a chronic respiratory failure, COPD with emphysema uses 3 L oxygen via nasal cannula at home, depression, essential hypertension, GERD from obstructive sleep apnea, uses trilogy at home, ulcerative colitis presented the ED 02/05/2022 with complains of shortness of breath which has been worsening 3 days prior to admission, she also states. She has been using her inhalers with minimal relief. Patient denies any fevers, was complaining of some cough who he will productive. Patient was placed on BiPAP and transferred to medical floor. On 02/07 late in the evening patient was minimally responsive, wound open eyes to deep sternal rub, she did have a bilious emesis noted on a gown by t
[2022-02-08] MEDS: LIDOCAINE HCL 1% LOCAL INJ 2 ML AMPUL 5 ML INFILTRATE (08:55)
[2022-02-08] MEDS: methylPREDNISolone SOD SUCC 125 MG VIAL IV PUSH (09:28)
[2022-02-08] MEDS: ENOXAPARIN 40 MG/0.4 ML SYRINGE SUB-Q (09:28)
[2022-02-08] MEDS: MINERAL OIL/WHITE PETROLATUM OINTMENT 1 APPLIC EACH EYE (09:28)
[2022-02-08 12:07] LABS: Glucose Point of Care 177 mg/dl (65-105)
--- NOTE | 2022-02-08 13:17 | PM.IMPN ---
Progress Note: A&P Assessment and Plan (1) Acute on chronic respiratory failure with hypoxia and hypercapnia: Code(s): J96.21 - Acute and chronic respiratory failure with hypoxia; J96.22 - Acute and chronic respiratory failure with hypercapnia Status: Acute (2) Decompensated COPD with exacerbation (chronic obstructive pulmonary disease): Code(s): J44.1 - Chronic obstructive pulmonary disease with (acute) exacerbation Status: Acute (3) Uncontrolled hypertension: Code(s): I10 - Essential (primary) hypertension Status: Acute (4) GERD (gastroesophageal reflux disease): Code(s): K21.9 - Gastro-esophageal reflux disease without esophagitis Status: Acute (5) Chronic anemia: Code(s): D64.9 - Anemia, unspecified Status: Acute Plan # Acute on chronic hypercapnic respiratory failure placed on BiPAP 04/07. BNP 512 troponin negative normal WBC ABG 7.33/80/112/41. Suspected COPD exacerbation steroid IV and azithromycin. Chest x-ray is negative for any acute cardiopulmonary disease. Will check CTA to rule out PE but patient refused. She reports she has allergy to dye. She however received CTA during her last admission without issues. She still refuses to get the contrast dye. CT chest without contrast which showed no acute changes but chest x-ray subsequently showed bilateral opacities Continue BiPAP as needed during daytime and schedule at night. Uses NIV at night at home which she is not compliant with Electively intubated with worsening hypercapnia and ongoing vomiting. Continue ventilatory support has ordered by [employer] administrator #Abdominal pain upper abdomen CT abdomen without contrast to rule out gallbladder etiology/constipation/obstruction showed gastric dilatation. No other signs of obstruction. X-ray obstructive series 02/08/2022 with nonobstructive bowel gas pattern. NG in place with bilious drainage. Continue to monitor output. Reglan added for possible gastroparesis as previous CT scan in the past also showed gastric dilatation. # Chronic respiratory failure on home oxygen and noninvasive ventilation # COPD exacerbation steroid and azithromycin # UTI on ceftriaxone follow urine culture which showed contaminated sample #Altered mental status improving likely due to hypercapnia. #Chronic pain #DANETTE diagnosed 8 years ago could not tolerate CPAP. #History of tobacco abuse 47 pack year quit 2004 #Diastolic dysfunction grade 1 #Morbid obesity #Hypertension #Depression #Anxiety #Code status full code #DVT prophylaxis Lovenox Subjective Date/time seen: 02/08/22 13:17 Interval history: HPI:this is an 81-year-old female with past medical history significant for COPD / emphysema, chronic hypoxic respiratory failure on supplemental oxygen at home, diastolic heart failure, chronic pain syndrome, gastroesophageal reflux disease, aortic stenosis.? Patient presents to the emergency room due to worsening shortness of breath most of the history has been obtained upon reviewing medical records at the time of my visit patient is on BiPAP 02/06/2022 presented from home with severe shortness of breath since past few days. Minimal Pierre helped with inhaler. No fever. Occasional cough reported. Has underlying COPD. Feels a bit better today. Remains on BiPAP 02/07/2022 no overnight events. On of confusion per nursing staff. Discussed with the nursing staff. Gets anxious. Received alprazolam last night. 02/08/2022 overnight events noted more somnolent and ABG with worsening hypercapnia. Was also vomiting and hence electively intubated. He is currently on ventilator and sedated. NG tube has been placed and has got approximately 600 cc of bilious drainage. She had an obstructive series done which was negative CT head showed stable nonspecific cerebral white matter disease. Chest x-ray with worsening airspace opacities in the lung bases consistent with atelectasis versus pne
[2022-02-08] MEDS: CENTRAL LINE FLUSH 10 ML IV PUSH ×2 (14:56→17:27)
[2022-02-08 16:57] LABS: Glucose Point of Care 180 mg/dl (65-105)
[2022-02-08] MEDS: MIDAZOLAM 100MG/NS 100ML(*CRX) 100 MG/100 ML BAG IV CONT (17:57)
[2022-02-09] VITALS (31 sets, daily range): BP systolic 91–141; BP diastolic 36–93; PULSE 69–108; RESP 8–18; TEMP 36.6–37.5; O2SAT 96–100
[2022-02-09] MEDS: MINERAL OIL/WHITE PETROLATUM OINTMENT 1 APPLIC EACH EYE ×3 (02:07→20:25)
[2022-02-09] MEDS: CENTRAL LINE FLUSH 10 ML IV PUSH ×5 (02:07→20:27)
[2022-02-09] MEDS: METOCLOPRAMIDE HCL INJ 10 MG/2 ML VIAL 5 MG IV PUSH ×5 (02:11→23:36)
[2022-02-09] MEDS: methylPREDNISolone SOD SUCC 125 MG VIAL 60 MG IV PUSH ×5 (02:11→23:36)
[2022-02-09] MEDS: IPRATROPIUM BR 0.02% INH SOLN 0.5 MG/2.5 ML VIAL INHALATION ×5 (03:42→23:53)
[2022-02-09] MEDS: ALBUTEROL SULFATE NEB 2.5 MG/3 ML INH 5 MG INHALATION ×5 (03:42→23:53)
[2022-02-09 05:36] LABS: Alveolar/Arterial O2 Gradient 87.4 mmHg; Base Excess ABG 12.9 mEq/l (+/-2.0); Carboxyhemoglobin 0.3 % THb (0-2.0); Fractional Inspired Oxygen 35 %; HCO3 ABG 39.3 mEq/l (22.0-26.0); Methemoglobin ABG 0.3 %THb (0-1.5); Oxygen Content ABG 14.5 %vol (16.0-22.0); Oxygen Saturation ABG 96.9 % (95.0-100.0); Oxyhemoglobin 95.7 % THb (90.0-100.0); PO2 ABG 91.2 mmHg (80.0-100.0); PO2 FiO2 Ratio Arterial Blood 2.61 %; Reduced Hemoglobin 3.7 %THb (0-5.0); Total Hemoglobin 10.7 g/dL (12.0-18.0); pH ABG 7.427 (7.350-7.450)
[2022-02-09 05:37] LABS: Arterial Blood Gas Vent Mode CMV; Arterial Blood Gas Ventilator rate 18 /MIN; Device VENTILATOR; Modified Allen's Test Unable to perform; Site Drawn RIGHT RADIAL
[2022-02-09 05:38] LABS: Arterial Blood Gas PEEP 5 cmH2O; Arterial Blood Gas Tidal Volume 350 ml
[2022-02-09 06:17] LABS: Hematocrit 29.7 % (37.0-47.0); Hemoglobin 9.1 g/dL (12.0-15.0); Immature Granulocyte Absolute 0.04 K/mm3 (0.00-0.031); Immature Granulocyte Percent A 0.5 % (0-0.5); Lymphocytes Absolute Auto 0.21 K/mm3 (0.9-3.2); Lymphocytes Percent Auto 2.5 % (18.3-44.2); Mean Corpuscular HGB Conc 30.6 g/dl (32-36); Mean Corpuscular Hemoglobin 25.7 pg (26-34); Mean Corpuscular Volume 83.9 fl (80-100); Mean Platelet Volume 10.4 fl (7.4-10.4); Monocytes Absolute Auto 0.9 K/mm3 (0.1-0.6); Monocytes Percent Auto 10.4 % (2.6-8.5); Neutrophils Absolute Auto 7.4 K/mm3 (1.3-6.7); Neutrophils Percent Auto 86.6 % (45.5-73.1); Platelet Count Result 194 k/mm3 (150-375); Red Blood Count 3.54 M/mm3 (4.2-5.4); Red Cell Distribution Width 14.2 % (11.5-14.5); White Blood Count 8.5 K/mm3 (4.5-10.0)
[2022-02-09 06:56] LABS: Blood Urea Nitrogen 51 mg/dL (7-17); Calcium 8.3 mg/dL (8.4-10.2); Carbon Dioxide > 40 mmol/L (22-30); Chloride 85 mmol/L (98-107); Estimated CRCL calculation 49 ml/min; Estimated Glomerular Filt Rate > 60; Glucose 202 mg/dL (65-110); Phosphorus 2.8 mg/dL (2.5-4.5); Sodium 132 mmol/L (137-145)
[2022-02-09] MEDS: ENOXAPARIN 40 MG/0.4 ML SYRINGE SUB-Q (08:36)
[2022-02-09 08:37] LABS: Glucose Point of Care 201 mg/dl (65-105)
[2022-02-09] MEDS: PANTOPRAZOLE SODIUM IV 40 MG VIAL IV PUSH (08:38)
[2022-02-09] MEDS: INSULIN ASPART (*BKC) 100 UNITS/ML SUB-Q ×3 (08:38→23:36)
[2022-02-09] MEDS: SODIUM CHLORIDE 0.9% IV 500 ML 100 ML IV CONT (11:22)
--- NOTE | 2022-02-09 11:31 | PCNFU ---
Nutrition Follow-Up Complete: Inadequate Oral Intake as related to mechanical vent as evidenced by tube feedings. Goal: Meet estimated nutritional needs Patient is progressing towards goal. We will continue current goal. Pt current nutrition is Vital AF 1.2 at 50 ml/hr Last recorded weight is 89.9 kg, stable Bowel Motility:No Bm reported Labs Reviewed:Glu 202, BUN 51, Na 132, Hgb 9.1,Hct 29.7 Meds Noted:Rocephin, Reglan, Atrovent, Solu Medrol, Protonix, NS Skin: WNL Additional Notes: Patient remains on mechanical vent-ASV mode. Plans for possible extubated, tube feedings on hold. No sedation. If patient remains on tubefeedings continue to recommend Vital AF 1.2 at 50 ml/hr, providing 1320 kcals/83 gms protein/892 ml water. Free water flush 30 ml q 4 hours. Agree with diet orders. Monitoring: following in ICU rounds and reassessing every Tuesday and Tuesday.
--- NOTE | 2022-02-09 11:50 | WPDINTPN ---
Progress Note: A&P Assessment and Plan (1) Acute on chronic respiratory failure with hypoxia and hypercapnia: Code(s): J96.21 - Acute and chronic respiratory failure with hypoxia; J96.22 - Acute and chronic respiratory failure with hypercapnia Status: Acute Assessment and Plan: Acute on chronic respiratory failure likely related to COPD exacerbation, hypercapnic respiratory failure, aspiration pneumonitis/pneumonia -patient was intubated on 02/07/2022 after she was found to be less responsive, patient had an emesis, she was intubated for impending respiratory failure/airway protection -currently on CMV mode of ventilation, peep of 5 in 35% FiO2 -chest x-ray and ABGs reviewed -sedation was weaned to off, patient has been placed on ASV, is still somnolent, once she is more awake place her on spontaneous breathing trial and evaluate for extubation -continue steroids, ceftriaxone azithromycin (02/06) -continue bronchodilators (2) COPD with emphysema: Code(s): J43.9 - Emphysema, unspecified Status: Acute Assessment and Plan: Continue mechanical ventilation, steroids, antibiotics and bronchodilators (3) New onset type 2 diabetes mellitus: Code(s): E11.9 - Type 2 diabetes mellitus without complications Status: Acute Assessment and Plan: Continue sliding scale insulin Accu-Chek (4) Essential (primary) hypertension: Onset Date: Unknown Code(s): I10 - Essential (primary) hypertension Status: Acute Assessment and Plan: Blood pressures have been stable, will continue to monitor (5) Anemia: Code(s): D64.9 - Anemia, unspecified Status: Acute Assessment and Plan: Patient has a history of anemia, hemoglobin remains stable (6) Electrolyte abnormality: Code(s): E87.8 - Other disorders of electrolyte and fluid balance, not elsewhere classified Status: Acute Assessment and Plan: Hyponatremia improving Plan DVT prophylaxis: Lovenox Stress ulcer prophylaxis: Protonix Nutrition: Tolerating tube feeds, currently on hold possible extubation Code Status: Full code Critical Care Time Spent: 34 minutes Due to a high probability of clinically significant, life threatening deterioration, the patient required my highest level of preparedness to intervene emergently and I personally spent this critical care time directly and personally managing the patient. This critical care time included obtaining a history; examining the patient; pulse oximetry; ordering and review of studies; arranging urgent treatment with development of a management plan; evaluation of patient's response to treatment; frequent reassessment; and discussions with other providers. It was exclusive of separately billable procedures and treating other patients and teaching time. Please see Assessment and Plan section and the rest of the note for further information on patient assessment and treatment Subjective Date/time seen: 02/09/22 11:50 Interval history: Reason for consult: Acute on chronic respiratory failure, requiring intubation for airway protection, altered mental status, hypercapnia, emesis, risk of aspiration 02/09/2022: Patient seen and examined the ICU, remains intubated on CMV mode of ventilation, peep of 5, 35% FiO2, sedated with fentanyl and Versed infusion. Patient does open her eyes, follows simple commands in all extremities. Patient is afebrile, urine output has been low Review of Systems Review of Systems: ROS unobtainable: Yes unobtainable due to endotracheal tube and unobtainable due to medical condition Exam Narrative: General: Intubated and sedated HEENT:? Pupils equal and reactive, sclera is clear, ETT in place Neck:? Supple Respiratory:? Improved air entry, no wheezing noted, coarse breath sounds at bases Cardiac:? Regular rate and rhythm, S1-S2 is normal Abdomen:? Soft, nontender, nondistended, hypoactive bowel sounds, obese Extre
[2022-02-09 12:44] LABS: Glucose Point of Care 191 mg/dl (65-105)
--- NOTE | 2022-02-09 14:58 | PM.IMPN ---
Progress Note: A&P Assessment and Plan (1) Acute on chronic respiratory failure with hypoxia and hypercapnia: Code(s): J96.21 - Acute and chronic respiratory failure with hypoxia; J96.22 - Acute and chronic respiratory failure with hypercapnia Status: Acute (2) Decompensated COPD with exacerbation (chronic obstructive pulmonary disease): Code(s): J44.1 - Chronic obstructive pulmonary disease with (acute) exacerbation Status: Acute (3) Uncontrolled hypertension: Code(s): I10 - Essential (primary) hypertension Status: Acute (4) GERD (gastroesophageal reflux disease): Code(s): K21.9 - Gastro-esophageal reflux disease without esophagitis Status: Acute (5) Chronic anemia: Code(s): D64.9 - Anemia, unspecified Status: Acute Plan # Acute on chronic hypercapnic respiratory failure placed on BiPAP 04/07. BNP 512 troponin negative normal WBC ABG 7.33/80/112/41. Suspected COPD exacerbation steroid IV and azithromycin. Chest x-ray is negative for any acute cardiopulmonary disease. Will check CTA to rule out PE but patient refused. She reports she has allergy to dye. She however received CTA during her last admission without issues. She still refuses to get the contrast dye. CT chest without contrast which showed no acute changes but chest x-ray subsequently showed bilateral opacities Continue BiPAP as needed during daytime and schedule at night. Uses NIV at night at home which she is not compliant with Electively intubated with worsening hypercapnia and ongoing vomiting. Continue ventilatory support has ordered by dimensional integration engineer Plan for spontaneous breathing trial an evaluation for extubation today #Abdominal pain upper abdomen CT abdomen without contrast to rule out gallbladder etiology/constipation/obstruction showed gastric dilatation. No other signs of obstruction. X-ray obstructive series 02/08/2022 with nonobstructive bowel gas pattern. NG in place with bilious drainage. Continue to monitor output. Reglan added for possible gastroparesis as previous CT scan in the past also showed gastric dilatation. # Chronic respiratory failure on home oxygen and noninvasive ventilation. Family reported noncompliance with her NIV # COPD exacerbation steroid and azithromycin # UTI on ceftriaxone follow urine culture which showed contaminated sample #Altered mental status improving likely due to hypercapnia. #Chronic pain #DANETTE diagnosed 8 years ago could not tolerate CPAP. #History of tobacco abuse 47 pack year quit 2004 #Diastolic dysfunction grade 1 #Morbid obesity #Hypertension #Depression #Anxiety #Code status full code #DVT prophylaxis Lovenox Subjective Date/time seen: 02/09/22 14:58 Interval history: HPI:this is an 81-year-old female with past medical history significant for COPD / emphysema, chronic hypoxic respiratory failure on supplemental oxygen at home, diastolic heart failure, chronic pain syndrome, gastroesophageal reflux disease, aortic stenosis.? Patient presents to the emergency room due to worsening shortness of breath most of the history has been obtained upon reviewing medical records at the time of my visit patient is on BiPAP 02/06/2022 presented from home with severe shortness of breath since past few days. Minimal Pierre helped with inhaler. No fever. Occasional cough reported. Has underlying COPD. Feels a bit better today. Remains on BiPAP 02/07/2022 no overnight events. On of confusion per nursing staff. Discussed with the nursing staff. Gets anxious. Received alprazolam last night. 02/08/2022 overnight events noted more somnolent and ABG with worsening hypercapnia. Was also vomiting and hence electively intubated. He is currently on ventilator and sedated. NG tube has been placed and has got approximately 600 cc of bilious drainage. She had an obstructive series done which was negative CT head showed stable
[2022-02-09] MEDS: dexmedeTOMIDine 400 MCG/100 ML 400 MCG/100 ML BAG IV CONT (18:12)
[2022-02-09 18:20] LABS: Glucose Point of Care 227 mg/dl (65-105)
[2022-02-09 23:51] LABS: Glucose Point of Care 231 mg/dl (65-105)
[2022-02-10] VITALS (38 sets, daily range): BP systolic 101–172; BP diastolic 54–99; PULSE 65–109; RESP 8–20; TEMP 36.6–36.9; O2SAT 92–100
--- NOTE | 2022-02-10 | PC.NURSE ---
Patient attempted to pull ET tube out of mouth again. Patient's restraints removed for repositioning when patient grabbed ahold of tube. Patient's wrists resecured with restraints and unable to pull on tube. This RN reinstructed patient to not go for ET tube when being repositioned.
[2022-02-10] MEDS: dexmedeTOMIDine 400 MCG/100 ML 400 MCG/100 ML BAG 8.99 MCG IV CONT (04:01)
[2022-02-10] MEDS: ALBUTEROL SULFATE NEB 2.5 MG/3 ML INH 5 MG INHALATION ×5 (04:13→23:23)
[2022-02-10] MEDS: IPRATROPIUM BR 0.02% INH SOLN 0.5 MG/2.5 ML VIAL INHALATION ×5 (04:14→23:23)
[2022-02-10 04:53] LABS: Alveolar/Arterial O2 Gradient 98.8 mmHg; Base Excess ABG 13.6 mEq/l (+/-2.0); Carboxyhemoglobin 0.3 % THb (0-2.0); Fractional Inspired Oxygen 35 %; HCO3 ABG 37.6 mEq/l (22.0-26.0); Methemoglobin ABG 0.1 %THb (0-1.5); Oxygen Content ABG 15.6 %vol (16.0-22.0); Oxygen Saturation ABG 98.1 % (95.0-100.0); Oxyhemoglobin 96.6 % THb (90.0-100.0); PCO2 ABG 44.8 mmHg (35.0-45.0); PO2 ABG 98.7 mmHg (80.0-100.0); PO2 FiO2 Ratio Arterial Blood 2.82 %; Total Hemoglobin 11.4 g/dL (12.0-18.0)
[2022-02-10 04:58] LABS: Arterial Blood Gas PEEP 5 cmH2O; Arterial Blood Gas Vent Mode ASV; Device VENTILATOR; Modified Allen's Test Pass; Site Drawn LEFT RADIAL; pH ABG 7.542 (7.350-7.450)
[2022-02-10 05:13] LABS: Basophils Percent Auto 0.2 % (0.2-1.2); Hemoglobin 9.3 g/dL (12.0-15.0); Immature Granulocyte Absolute 0.03 K/mm3 (0.00-0.031); Immature Granulocyte Percent A 0.5 % (0-0.5); Lymphocytes Absolute Auto 0.24 K/mm3 (0.9-3.2); Lymphocytes Percent Auto 3.7 % (18.3-44.2); Mean Corpuscular Volume 83.8 fl (80-100); Mean Platelet Volume 10.1 fl (7.4-10.4); Monocytes Absolute Auto 0.6 K/mm3 (0.1-0.6); Monocytes Percent Auto 9.1 % (2.6-8.5); Neutrophils Absolute Auto 5.6 K/mm3 (1.3-6.7); Neutrophils Percent Auto 86.5 % (45.5-73.1); Platelet Count Result 193 k/mm3 (150-375); Red Blood Count 3.58 M/mm3 (4.2-5.4); Red Cell Distribution Width 14.6 % (11.5-14.5); White Blood Count 6.5 K/mm3 (4.5-10.0)
[2022-02-10 05:22] LABS: Alanine Aminotransferase 22 U/L (6-35); Albumin Level 3.2 g/dL (3.5-5.1); Alkaline Phosphatase 51 U/L (38-126); Anion Gap 7 mmol/L (8-16); Aspartate Amino Transferase 21 U/L (14-36); Bilirubin,Total 0.2 mg/dL (0.2-1.3); Blood Urea Nitrogen 55 mg/dL (7-17); Carbon Dioxide 37 mmol/L (22-30); Chloride 86 mmol/L (98-107); Estimated CRCL calculation 49 ml/min; Estimated Glomerular Filt Rate > 60; Glucose 256 mg/dL (65-110); Magnesium 2.2 mg/dL (1.6-2.3); Phosphorus 3.1 mg/dL (2.5-4.5); Potassium 4.1 mmol/L (3.4-5.0); Sodium 130 mmol/L (137-145)
[2022-02-10] MEDS: methylPREDNISolone SOD SUCC 125 MG VIAL 60 MG IV PUSH (05:29)
[2022-02-10] MEDS: METOCLOPRAMIDE HCL INJ 10 MG/2 ML VIAL 5 MG IV PUSH ×3 (05:29→18:07)
[2022-02-10] MEDS: INSULIN ASPART (*BKC) 100 UNITS/ML SUB-Q (05:30)
[2022-02-10] MEDS: CENTRAL LINE FLUSH 10 ML IV PUSH ×4 (05:33→19:47)
[2022-02-10] MEDS: PANTOPRAZOLE SODIUM IV 40 MG VIAL IV PUSH (07:38)
[2022-02-10] MEDS: ENOXAPARIN 40 MG/0.4 ML SYRINGE SUB-Q (07:38)
--- NOTE | 2022-02-10 08:05 | PM.IMPN ---
Progress Note: A&P Assessment and Plan (1) Acute on chronic respiratory failure with hypoxia and hypercapnia: Code(s): J96.21 - Acute and chronic respiratory failure with hypoxia; J96.22 - Acute and chronic respiratory failure with hypercapnia Status: Acute Assessment and Plan: Extubated, on 4L nc Decrease steroid dose, give one more dose of antibiotics this afternoon to complete 5 day course, bronchodilators (2) COPD exacerbation: Code(s): J44.1 - Chronic obstructive pulmonary disease with (acute) exacerbation Status: Chronic Assessment and Plan: See above for details (3) New onset type 2 diabetes mellitus: Code(s): E11.9 - Type 2 diabetes mellitus without complications Status: Acute Assessment and Plan: Continue Accu-Cheks, sliding scale insulin (4) Benign essential hypertension: Code(s): I10 - Essential (primary) hypertension Status: Acute Assessment and Plan: Controlled (5) Hyponatremia: Code(s): E87.1 - Hypo-osmolality and hyponatremia Status: Acute Assessment and Plan: Sodium fluctuating between 129 and 136, 130 today (6) Anemia: Code(s): D64.9 - Anemia, unspecified Status: Acute Assessment and Plan: Hemoglobin baseline appears to be 9-11, currently 9.3 today Plan DVT prophylaxis with Lovenox GI prophylaxis with PPI Code status full code Subjective Date/time seen: 02/10/22 08:05 Interval history: Extubated, doing well. No fevers, chills, no overnight events noted. Review of Systems Review of Systems: 12 point review of systems was assessed and was negative except as noted in the HPI Exam Narrative: General: No acute distress, alert and oriented per baseline HEENT: Atraumatic, normocephalic, mucous membranes moist CV: Regular rate and rhythm, S1, S2 Lungs: Clear to auscultation bilaterally, diminished at bases Abdomen: Soft, nontender, nondistended Extremities: Chronic venous stasis dermatitis noted B/L LE Objective Data Vital Signs Vital Signs: Vital Signs - 24 hr 02/09/22 08:47 02/09/22 10:00 02/09/22 10:00 Temperature Pulse Rate 99 97 97 Respiratory Rate 18 17 Blood Pressure 141/65 H Pulse Oximetry 100 Oxygen Delivery Fraction of Inspired Oxygen 02/09/22 12:30 02/09/22 12:43 02/09/22 11:43 Temperature Pulse Rate 102 H 99 98 Respiratory Rate 18 18 Blood Pressure Pulse Oximetry 97 Oxygen Delivery Mechanical Ventilation Fraction of Inspired Oxygen 35 02/09/22 09:45 02/09/22 12:00 02/09/22 12:00 Temperature 98.3 F Pulse Rate 98 97 Respiratory Rate 14 12 Blood Pressure 132/53 L Pulse Oximetry 100 Oxygen Delivery Fraction of Inspired Oxygen 35 02/09/22 12:00 02/09/22 12:00 02/09/22 14:00 Temperature Pulse Rate 98 102 H Respiratory Rate Blood Pressure Pulse Oximetry 100 Oxygen Delivery Mechanical Ventilation Fraction of Inspired Oxygen 35 02/09/22 14:00 02/09/22 14:31 02/09/22 16:00 Temperature Pulse Rate 103 H 106 H Respiratory Rate 8 L Blood Pressure 137/50 L Pulse Oximetry 99 99 Oxygen Delivery Mechanical Ventilation Fraction of Inspired Oxygen 35 35 02/09/22 16:00 02/09/22 16:00 02/09/22 16:00 Temperature 99.5 F Pulse Rate 102 H 102 H Respiratory Rate 8 L Blood Pressure 122/93 H Pulse Oximetry 99 99 Oxygen Delivery Mechanical Ventilation Fraction of Inspired Oxygen 35 02/09/22 16:37 02/09/22 17:48 02/09/22 18:12 Temperature Pulse Rate 102 H 94 108 H Respiratory Rate 17 8 L Blood Pressure Pulse Oximetry 98 Oxygen Delivery Mechanical Ventilation Fraction of Inspired Oxygen 35 02/09/22 18:00 02/09/22 18:00 02/09/22 19:51 Temperature Pulse Rate 96 97 80 Respiratory Rate 8 L Blood Pressure 135/60 Pulse Oximetry 97 99 Oxygen Delivery Mechanical Ventilation Fraction of Inspired Oxygen 35 02/09/22
[2022-02-10 09:03] LABS: Alveolar/Arterial O2 Gradient 84.2 mmHg; Base Excess ABG 11.1 mEq/l (+/-2.0); Fractional Inspired Oxygen 35 %; HCO3 ABG 37.4 mEq/l (22.0-26.0); Oxygen Content ABG 14.8 %vol (16.0-22.0); Oxygen Saturation ABG 97.4 % (95.0-100.0); Oxyhemoglobin 95.8 % THb (90.0-100.0); PCO2 ABG 58.6 mmHg (35.0-45.0); PO2 ABG 97.2 mmHg (80.0-100.0); PO2 FiO2 Ratio Arterial Blood 2.78 %; Total Hemoglobin 10.9 g/dL (12.0-18.0); pH ABG 7.423 (7.350-7.450)
[2022-02-10 09:04] LABS: Device VENTILATOR; Modified Allen's Test Pass; Site Drawn LEFT RADIAL
[2022-02-10 09:06] LABS: Arterial Blood Gas PEEP 5 cmH2O; Arterial Blood Gas Pressure Support 8 cmH2O; Arterial Blood Gas Vent Mode SPONTANEOUS
--- NOTE | 2022-02-10 11:05 | WPDINTPN ---
Progress Note: A&P Assessment and Plan (1) Acute on chronic respiratory failure with hypoxia and hypercapnia: Code(s): J96.21 - Acute and chronic respiratory failure with hypoxia; J96.22 - Acute and chronic respiratory failure with hypercapnia Status: Acute Assessment and Plan: Acute on chronic respiratory failure likely related to COPD exacerbation, hypercapnic respiratory failure, aspiration pneumonitis/pneumonia -patient was intubated on 02/07/2022 after she was found to be less responsive, patient had an emesis, she was intubated for impending respiratory failure/airway protection -currently on ASV mode of ventilation,100% minute ventilation and PEEP of 5, 35% FiO2 -chest x-ray and ABGs reviewed -patient is on Precedex infusion, placed patient breathing trial and evaluate for extubation -decrease steroid -on ceftriaxone and azithromycin (02/06), will discontinue as she has received 5 day course, afebrile, normal white blood cell count -continue bronchodilators (2) COPD with emphysema: Code(s): J43.9 - Emphysema, unspecified Status: Acute Assessment and Plan: Will place patient on nasal cannula, she states she takes 3-4 L at home -wean steroids, -discontinue antibiotics -continue bronchodilators -BiPAP as needed (3) New onset type 2 diabetes mellitus: Code(s): E11.9 - Type 2 diabetes mellitus without complications Status: Acute Assessment and Plan: Continue sliding scale insulin Accu-Chek (4) Essential (primary) hypertension: Onset Date: Unknown Code(s): I10 - Essential (primary) hypertension Status: Acute Assessment and Plan: Blood pressures have been stable, will continue to monitor (5) Anemia: Code(s): D64.9 - Anemia, unspecified Status: Acute Assessment and Plan: Patient has a history of anemia, hemoglobin remains stable (6) Electrolyte abnormality: Code(s): E87.8 - Other disorders of electrolyte and fluid balance, not elsewhere classified Status: Acute Assessment and Plan: Hyponatremia improving Plan DVT prophylaxis: Lovenox Stress ulcer prophylaxis: Protonix Nutrition: Tolerating tube feeds, currently on hold possible extubation Code Status: Full code Critical Care Time Spent: 34 minutes Due to a high probability of clinically significant, life threatening deterioration, the patient required my highest level of preparedness to intervene emergently and I personally spent this critical care time directly and personally managing the patient. This critical care time included obtaining a history; examining the patient; pulse oximetry; ordering and review of studies; arranging urgent treatment with development of a management plan; evaluation of patient's response to treatment; frequent reassessment; and discussions with other providers. It was exclusive of separately billable procedures and treating other patients and teaching time. Please see Assessment and Plan section and the rest of the note for further information on patient assessment and treatment Subjective Date/time seen: 02/10/22 11:05 Interval history: Reason for consult: Acute on chronic respiratory failure, requiring intubation for airway protection, altered mental status, hypercapnia, emesis, risk of aspiration 02/10/2022: Patient seen and examined the ICU, remains intubated on ASV mode of ventilation, peep of 5, 35% FiO2. Patient is off all sedation, on low-dose Precedex infusion, opens her eyes, nods to questions and follows simple commands. Hemodynamically stable, tolerating tube feeds, urine output has been adequate, afebrile Review of Systems Review of Systems: ROS unobtainable: Yes unobtainable due to endotracheal tube and unobtainable due to medical condition Exam Narrative: General: Intubated and sedated HEENT:? Pupils equal and reactive, sclera is clear, ETT in place Neck:? Supple Respiratory:? Improved air entry,
--- NOTE | 2022-02-10 11:29 | PCFNICU ---
ICU Rounding Note: Pt current nutrition is NPO. Last recorded weight is 90.1 kg, up from 89.9 kg on admit. Bowel Motility:No BM reported Labs Reviewed: BUN 55, Glu 156, Na 130, Hct 30.0,Hgb 9.3 Meds Noted:Rocephin, Reglan, Atrovent, Protonix Skin: WNL Additional Notes: Patient extubated this morning. Currently NPO. Plans for Speech Eval when more alert. Following daily in ICU rounds. Will monitor every 3 days.
[2022-02-10 12:27] LABS: Glucose Point of Care 136 mg/dl (65-105)
[2022-02-10] MEDS: methylPREDNISolone SOD SUCC 40 MG VIAL 20 MG IV PUSH ×2 (14:18→18:00)
--- NOTE | 2022-02-10 15:08 | PCSTNOTE ---
Please refer to the Bedside Swallow Evaluation in the EMR. Please note, silent aspiration cannot be ruled out at bedside.
[2022-02-10] MEDS: SENNA/DOCUSATE SODIUM TABLET 1 TAB PO (16:08)
[2022-02-10 17:58] LABS: Glucose Point of Care 155 mg/dl (65-105)
[2022-02-10] MEDS: ALBUTEROL SULFATE NEB 2.5 MG/3 ML INH 15 MG INHALATION (19:10)
[2022-02-10] MEDS: METOPROLOL TARTRATE INJ 5 MG/5 ML VIAL IV PUSH (19:47)
[2022-02-10] MEDS: FUROSEMIDE INJ 40 MG/4 ML VIAL IV PUSH (20:31)
[2022-02-10] MEDS: methylPREDNISolone SOD SUCC 125 MG VIAL IV PUSH (20:32)
[2022-02-10 23:07] LABS: Glucose Point of Care 183 mg/dl (65-105)
[2022-02-11] VITALS (34 sets, daily range): BP systolic 151–181; BP diastolic 64–101; PULSE 75–121; RESP 14–28; TEMP 36.4–37.1; O2SAT 91–100
--- NOTE | 2022-02-11 | ECHO_ITS ---
Patient Info Name: Belinda Black Age: 81 years : 1940 Gender: Female Ht: 61 in Wt: 195 lbs BSA: 2.00 m2 HR: 94 bpm BP: 163 / 84 mmHg Technical Quality: Fair Exam Date: 02/11/2022 2:05 PM Exam Location: [facility] Pulmonary Exam Room: ICU6 Patient Status: Inpatient Admit Date: 02/06/2022 Staff Ordering Physician: Haim Temple MD Screen Making Technician: Talia Garcia RDCS Attending Provider: Israel Mcgill MD Referring Physician: Windy MARQUES; Exam Type: CA echo dop color flow w con Study Info Indications - RESPIRATRORY FAILURE Complete two-dimensional, color flow and Doppler transthoracic echocardiogram is performed with contrast to opacify the left ventricle and to improve the deliniation of the left ventricle endocardial borders. Contrast/Agitated Saline Contrast/Ag. Saline: Definity Amount: 2.00 ml Administered By: Talia Garcia [facility] Existing IV Access: Yes IV Access Condition: patent with no signs of infiltration Summary 1. Left ventricular chamber dimension is normal. 2. Definity contrast administered improved wall motion interpretation. 3. Left ventricular systolic function is normal, estimated at 60-65%. 4. The left ventricular diastolic function is abnormal. 5. E/e' 21 is elevated. 6. Left atrial chamber dimension is mildly enlarged. 7. There is moderate aortic valve sclerosis. 8. There is moderate aortic valve stenosis with a peak velocity of 217.03 cm/s, mean gradient of 12 mmHg, and aortic valve area of 1.39 cm2. 9. The mitral valve has mildly calcified leaflets and moderately calcified annulus. 10. There is mild mitral valve regurgitation. 11. Mild pulmonary hypertension, estimated pulmonary arterial systolic pressure is 48 mmHg. Left Ventricle E/e' 21 is elevated. Definity contrast administered improved wall motion interpretation. Left ventricular chamber dimension is normal. Left ventricular systolic function is normal, estimated at 60-65%. The left ventricular diastolic function is abnormal. Right Ventricle Right ventricular chamber dimension is not well visualized. Left Atria Left atrial chamber dimension is mildly enlarged. Right Atria Right atrial chamber dimension is normal. Aortic Valve The aortic valve is not well visualized. Cannot determine number of aortic valve leaflets. There is moderate aortic valve sclerosis. There is moderate aortic valve stenosis with a peak velocity of 217.03 cm/s, mean gradient of 12 mmHg, and aortic valve area of 1.39 cm2. There is no aortic valve regurgitation. Pulmonic Valve There is no pulmonic regurgitation. Mitral Valve The mitral valve has mildly calcified leaflets and moderately calcified annulus. There is no mitral valve stenosis. There is mild mitral valve regurgitation. Tricuspid Valve There is no tricuspid valve regurgitation. Mild pulmonary hypertension, estimated pulmonary arterial systolic pressure is 48 mmHg. Pericardium/Pleural There is no pericardial effusion. Inferior Vena Cava Normal inferior vena cava with >50% collapse upon inspiration consistent with normal right atrial pressure, 5 mmHg. Aorta The aortic root size at the sinus of Valsalva is normal. Left Ventricular Outflow Tract Name Value Normal
[2022-02-11] MEDS: methylPREDNISolone SOD SUCC 40 MG VIAL 20 MG IV PUSH ×4 (00:25→23:17)
[2022-02-11] MEDS: METOCLOPRAMIDE HCL INJ 10 MG/2 ML VIAL 5 MG IV PUSH ×5 (00:25→23:17)
[2022-02-11 04:31] LABS: Basophils Percent Auto 0.1 % (0.2-1.2); Hematocrit 31.5 % (37.0-47.0); Hemoglobin 9.9 g/dL (12.0-15.0); Immature Granulocyte Absolute 0.07 K/mm3 (0.00-0.031); Immature Granulocyte Percent A 0.6 % (0-0.5); Lymphocytes Absolute Auto 0.19 K/mm3 (0.9-3.2); Lymphocytes Percent Auto 1.7 % (18.3-44.2); Mean Corpuscular HGB Conc 31.4 g/dl (32-36); Mean Corpuscular Hemoglobin 26.1 pg (26-34); Mean Corpuscular Volume 82.9 fl (80-100); Mean Platelet Volume 10.3 fl (7.4-10.4); Monocytes Absolute Auto 0.7 K/mm3 (0.1-0.6); Neutrophils Absolute Auto 10.2 K/mm3 (1.3-6.7); Neutrophils Percent Auto 91.6 % (45.5-73.1); Platelet Count Result 247 k/mm3 (150-375); Red Cell Distribution Width 14.6 % (11.5-14.5); White Blood Count 11.2 K/mm3 (4.5-10.0)
[2022-02-11 04:55] LABS: Alanine Aminotransferase 32 U/L (6-35); Albumin Level 3.5 g/dL (3.5-5.1); Alkaline Phosphatase 59 U/L (38-126); Aspartate Amino Transferase 25 U/L (14-36); Bilirubin,Total 0.3 mg/dL (0.2-1.3); Blood Urea Nitrogen 47 mg/dL (7-17); Carbon Dioxide > 40 mmol/L (22-30); Chloride 83 mmol/L (98-107); Estimated CRCL calculation 49 ml/min; Estimated Glomerular Filt Rate > 60; Glucose 216 mg/dL (65-110); Magnesium 2.1 mg/dL (1.6-2.3); Phosphorus 4.2 mg/dL (2.5-4.5); Potassium 3.5 mmol/L (3.4-5.0); Sodium 133 mmol/L (137-145)
[2022-02-11] MEDS: ALBUTEROL SULFATE NEB 2.5 MG/3 ML INH 5 MG INHALATION ×3 (05:14→11:41)
[2022-02-11] MEDS: IPRATROPIUM BR 0.02% INH SOLN 0.5 MG/2.5 ML VIAL INHALATION ×6 (05:14→23:55)
[2022-02-11 05:31] LABS: Base Excess ABG 15.9 mEq/l (+/-2.0); Fractional Inspired Oxygen 35 %; HCO3 ABG 42.1 mEq/l (22.0-26.0); Oxygen Content ABG 14.8 %vol (16.0-22.0); Oxygen Saturation ABG 95.8 % (95.0-100.0); Oxyhemoglobin 94.4 % THb (90.0-100.0); PCO2 ABG 59.9 mmHg (35.0-45.0); PO2 ABG 77.9 mmHg (80.0-100.0); PO2 FiO2 Ratio Arterial Blood 2.23 %; Total Hemoglobin 11.1 g/dL (12.0-18.0); pH ABG 7.465 (7.350-7.450)
[2022-02-11 05:32] LABS: Device NON-INVASIVE VENT; Modified Allen's Test Pass; Non-Invasive Expiratory Pressure 6 CMH2O; Non-Invasive Inspiratory Pressure 12 CMH2O; Non-Invasive Vent Rate 12 /MIN; Site Drawn LEFT RADIAL
[2022-02-11] MEDS: INSULIN ASPART (*BKC) 100 UNITS/ML SUB-Q (05:51)
[2022-02-11] MEDS: CENTRAL LINE FLUSH 10 ML IV PUSH ×3 (05:52→21:28)
[2022-02-11] MEDS: BUDESONIDE RESPULE NEB 0.5 MG/2 ML AMP INHALATION ×2 (08:21→20:47)
[2022-02-11] MEDS: amLODIPine BESYLATE 5 MG TABLET PO (08:27)
[2022-02-11] MEDS: METOPROLOL TARTRATE 12.5 MG TABLET PO ×2 (08:27→19:59)
[2022-02-11] MEDS: ENOXAPARIN 40 MG/0.4 ML SYRINGE SUB-Q (08:27)
[2022-02-11] MEDS: PANTOPRAZOLE SODIUM IV 40 MG VIAL IV PUSH (08:28)
[2022-02-11] MEDS: SENNA/DOCUSATE SODIUM TABLET 1 TAB PO ×2 (08:29→16:10)
[2022-02-11] MEDS: LABETALOL HCL INJ 100 MG/20 ML VIAL 20 MG IV PUSH ×2 (09:15→15:17)
--- NOTE | 2022-02-11 09:29 | PM.IMPN ---
Progress Note: A&P Assessment and Plan (1) Acute on chronic respiratory failure with hypoxia and hypercapnia: Code(s): J96.21 - Acute and chronic respiratory failure with hypoxia; J96.22 - Acute and chronic respiratory failure with hypercapnia Status: Acute Assessment and Plan: Extubated yesterday, on 3L nc Continue IV steroids today, will transition to oral steroids tomorrow (2) COPD exacerbation: Code(s): J44.1 - Chronic obstructive pulmonary disease with (acute) exacerbation Status: Chronic Assessment and Plan: See above for details (3) New onset type 2 diabetes mellitus: Code(s): E11.9 - Type 2 diabetes mellitus without complications Status: Acute Assessment and Plan: Continue Accu-Cheks, sliding scale insulin (4) Benign essential hypertension: Code(s): I10 - Essential (primary) hypertension Status: Acute Assessment and Plan: Controlled (5) Hyponatremia: Code(s): E87.1 - Hypo-osmolality and hyponatremia Status: Acute Assessment and Plan: Sodium improved, 133 today (6) Anemia: Code(s): D64.9 - Anemia, unspecified Status: Acute Assessment and Plan: Improving, hemoglobin 9.9 today Plan DVT prophylaxis with Lovenox GI prophylaxis with PPI Code status full code Subjective Date/time seen: 02/11/22 09:29 Interval history: No overnight events noted. No chest pain or shortness of breath. No nausea, vomiting or diarrhea. No fevers or chills. Patient states she feels better than yesterday, still with a little bit of a cough. Review of Systems Review of Systems: 12 point review of systems was assessed and was negative except as noted in the HPI Exam Narrative: General: No acute distress, alert and oriented per baseline HEENT: Atraumatic, normocephalic, mucous membranes moist CV: Regular rate and rhythm, S1, S2 Lungs: Clear to auscultation bilaterally, diminished at bases Abdomen: Soft, nontender, nondistended Extremities: Chronic venous stasis dermatitis noted B/L LE Objective Data Vital Signs Vital Signs: Vital Signs - 24 hr 02/10/22 10:28 02/10/22 11:41 02/10/22 12:00 Temperature 98.1 F Pulse Rate 89 93 94 Respiratory Rate 18 18 17 Blood Pressure Pulse Oximetry 97 99 100 Oxygen Delivery Nasal Cannula Nasal Cannula Oxygen Flow Rate 5 4 Fraction of Inspired Oxygen 02/10/22 12:14 02/10/22 12:20 02/10/22 12:30 Temperature Pulse Rate 95 97 Respiratory Rate 15 15 Blood Pressure 157/80 H Pulse Oximetry Oxygen Delivery Oxygen Flow Rate Fraction of Inspired Oxygen 02/10/22 12:00 02/10/22 10:00 02/10/22 12:00 Temperature Pulse Rate 90 96 Respiratory Rate Blood Pressure Pulse Oximetry 100 Oxygen Delivery Nasal Cannula Oxygen Flow Rate 5 Fraction of Inspired Oxygen 02/10/22 14:00 02/10/22 14:00 02/10/22 17:31 Temperature Pulse Rate 95 96 98 Respiratory Rate 16 17 Blood Pressure 148/69 H Pulse Oximetry 100 Oxygen Delivery Oxygen Flow Rate Fraction of Inspired Oxygen 02/10/22 17:32 02/10/22 16:00 02/10/22 16:00 Temperature Pulse Rate 95 95 Respiratory Rate 16 Blood Pressure Pulse Oximetry 97 100 Oxygen Delivery Nasal Cannula Nasal Cannula Oxygen Flow Rate 3 5 Fraction of Inspired Oxygen 02/10/22 17:45 02/10/22 16:00 02/10/22 18:00 Temperature 98.5 F Pulse Rate 97 92 101 H Respiratory Rate 18 15 17 Blood Pressure 148/64 H 169/99 H Pulse Oximetry 99 97 Oxygen Delivery Oxygen Flow Rate Fraction of Inspired Oxygen 02/10/22 18:00 02/10/22 19:15 02/10/22 19:15 Temperature Pulse Rate 101 H 103 H Respiratory Rate 20 Blood Pressure Pulse Oximetry 100 Oxygen Delivery Nasal Cannula Oxygen Flow Rate 3 Fraction of Inspired Oxygen 02/10/22 19:00 02/10/22 19:47 02/10/22 20:00 Temperature 97.9 F Pulse Rate 109 H 87 Respiratory
[2022-02-11] MEDS: ALPRAZolam (*CRX) 0.25 MG TABLET PO (10:35)
[2022-02-11] MEDS: polyethylene glycoL 3350 17 GM POWD.PACK PO (10:36)
--- NOTE | 2022-02-11 11:54 | PCFNICU ---
ICU Rounding Note: Pt current nutrition has been advanced to a level 5, minced and moist heart healthy diabetic diet per [employer] recommendations. Last recorded weight is 88.8 kg, stable Bowel Motility:No BM reported, is on dulcolax Labs Reviewed: Hgb:9.9, HCT:31.5, NA:133, BUN:47, glu:216 Meds Noted:Rocephin, Reglan, Atrovent, Protonix Skin: bruising, edema Additional Notes: Patient extubated, diet initiated, intake 50% of meals at this time. Tolerating well. Following daily in ICU rounds. Will follow up every 5 days.
[2022-02-11 12:24] LABS: Glucose Point of Care 129 mg/dl (65-105)
[2022-02-11] MEDS: methylPREDNISolone SOD SUCC 40 MG VIAL IV PUSH (12:24)
--- NOTE | 2022-02-11 12:35 | WPDINTPN ---
Progress Note: A&P Assessment and Plan (1) Acute on chronic respiratory failure with hypoxia and hypercapnia: Code(s): J96.21 - Acute and chronic respiratory failure with hypoxia; J96.22 - Acute and chronic respiratory failure with hypercapnia Status: Acute Assessment and Plan: Acute on chronic respiratory failure likely related to COPD exacerbation, hypercapnic respiratory failure, aspiration pneumonitis/pneumonia -patient was intubated on 02/07/2022 after she was found to be less responsive, patient had an emesis, she was intubated for impending respiratory failure/airway protection -patient successfully extubated on 02/10/2022: Overnight was having shortness of breath and difficulty breathing, patient on BiPAP despite which she was having some trouble breathing. Patient was given Solu-Medrol, continues nebulizer, Lasix to which she responded well. -chest x-ray this morning shows mild atelectasis in lower lung zones -continue steroid -s/p 5 days og ceftriaxone and azithromycin -continue bronchodilators (2) COPD with emphysema: Code(s): J43.9 - Emphysema, unspecified Status: Acute Assessment and Plan: Will place patient on nasal cannula, she states she takes 3-4 L at home -wean steroids, -discontinue antibiotics -continue bronchodilators -BiPAP as needed (3) New onset type 2 diabetes mellitus: Code(s): E11.9 - Type 2 diabetes mellitus without complications Status: Acute Assessment and Plan: Continue sliding scale insulin Accu-Chek (4) Essential (primary) hypertension: Onset Date: Unknown Code(s): I10 - Essential (primary) hypertension Status: Acute Assessment and Plan: Blood pressures have been stable, will continue to monitor (5) Anemia: Code(s): D64.9 - Anemia, unspecified Status: Acute Assessment and Plan: Patient has a history of anemia, hemoglobin remains stable (6) Electrolyte abnormality: Code(s): E87.8 - Other disorders of electrolyte and fluid balance, not elsewhere classified Status: Acute Assessment and Plan: Hyponatremia improving Plan DVT prophylaxis: Lovenox Stress ulcer prophylaxis: Protonix Nutrition: Tolerating tube feeds, currently on hold possible extubation Code Status: Full code Critical Care Time Spent: 32 minutes Due to a high probability of clinically significant, life threatening deterioration, the patient required my highest level of preparedness to intervene emergently and I personally spent this critical care time directly and personally managing the patient. This critical care time included obtaining a history; examining the patient; pulse oximetry; ordering and review of studies; arranging urgent treatment with development of a management plan; evaluation of patient's response to treatment; frequent reassessment; and discussions with other providers. It was exclusive of separately billable procedures and treating other patients and teaching time. Please see Assessment and Plan section and the rest of the note for further information on patient assessment and treatment Subjective Date/time seen: 02/11/22 12:35 Interval history: Reason for consult: Acute on chronic respiratory failure, requiring intubation for airway protection, altered mental status, hypercapnia, emesis, risk of aspiration 02/10/2022: Extubated 02/11/2022: Patient remains extubated, no overnight she proximally had anxiety event and was unable to breathe, patient was given Solu-Medrol, continues nebulizer and Lasix after which she improved. She has been wearing the BiPAP, 12/6, 35% FiO2, rate of 12 with adequate O2 sats. She made good urine output with the diuretics. hypertensive, anxious. Denies chest pain, N/V. complains of some cough. Review of Systems Review of Systems: All systems reviewed & are unremarkable except as noted in HPI and below Exam Narrative: General: elederly female i
[2022-02-11] MEDS: PERFLUTREN LIPID MICROSPHERES 1.5 ML VIAL DILUTED TO 10 ML TOTAL VOLUME IV PUSH (14:00)
--- NOTE | 2022-02-11 14:01 | PM.CNPUL ---
Assessment and Plan Assessment and plan (1) COPD exacerbation: Code(s): J44.1 - Chronic obstructive pulmonary disease with (acute) exacerbation Status: Acute Assessment and Plan: 81-year-old woman with a history of COPD (tobacco 47 PY quit [address] chest 08/19/2017 with severe apical predominant centrilobular emphysema), I have no PFTs, with chronic hypoxemic and hypercarbic respiratory failure on 3 L nasal cannula 22/11 and noncompliant with her home noninvasive ventilator with the Astral mode, obstructive sleep apnea diagnosed 8 years ago intolerant to CPAP and intolerant to noninvasive ventilation, grade 1 diastolic dysfunction, morbid obesity, HTN, and depression. She was maintained on Symbicort 160-4.5 at 2 puffs b.i.d., Spiriva Handy haler 1 puff q.day, albuterol 2 puffs q.i.d. p.r.n. in October 2021 At baseline patient has a chair lift at home and the and the patient state that she can stand up and pivot to wheelchair.? She has been nonambulatory for over a year. On 11/23/2021 I took care the patient and she had a COPD exacerbation with chronic hypercarbic and hypoxemic respiratory failure. she completed treatment with steroids, antibiotics, and was discharged on Symbicort and Spiriva as well as noninvasive ventilation with: Astral rate of 20, tidal volume 450, EPAP 7, minimal pressure support 6, maximal pressure support 25, rise time 200 milliseconds, TI minimum 1.0, TI maximum 1.5 seconds, cycles 50% with 5 L bleed in. her blood gas at the end of the night on these settings was 7.42/57/129. 02/11 currently the patient presents was a COPD exacerbation and has completed 6 days of ceftriaxone and azithromycin, Solu-Medrol was started on 02/06. currently she is on 40 mg IV q.6 hours, I will decrease to 20 Q 6 today. continue albuterol 2.5 mg nebs q.4 hours, ipratropium nebulized 0.5 mg q.4 hours, budesonide 0.5 mg q.12 hours. (2) Acute on chronic respiratory failure with hypoxia and hypercapnia: Code(s): J96.21 - Acute and chronic respiratory failure with hypoxia; J.22 - Acute and chronic respiratory failure with hypercapnia Status: Acute Assessment and Plan: the patient has a long history of chronic hypercarbic and hypoxemic respiratory failure from her COPD and has been prescribed a noninvasive Astral ventilator on 05/05/2021. she has had difficulty with compliance ever since then. I obtained the most recent download from [facility] from 11/21 through 01/19/2022. The patient is on an Astral 150 with a PSSV mode. Total usage days is ; of 20/60 days and usage greater than or equal to 4 hours is 3 of 60 or 5%. Average usage on days used is 2 hours and 33 minutes. Patient is on rate of 20, a tidal volume of 450, EPAP of 7, minimum pressure support 6, maximal pressure support 25, rise time 200, TI minimum 1.0, TI maximum 1.5, cycle 50% with 5 L bleed in. Her AHI is 0.5 with an apnea index 0.3 and a hypopnea index 0.2. Her median leak is 26.0, 95th percentile leak is 8.7, her 95th percentile leak is 59.5. Her median EPAP is 6.8, her median peak inspiratory pressure is 17.4, her median tidal volume is 441, her median respiratory rate is 21, her median minute ventilation is 9.0. I interpret this download as extremely poor compliance, adequate pressures with acceptable leak. 02/11 Today the patient tells me that the straight BiPAP is uncomfortable and she can't breathe with this machine. I will switch her to a noninvasive ventilator with an Shannan Apt mode with a rate of 20, tidal volume 450, EPAP 7, minimal inspiratory pressure 8, maximal inspiratory pressure 25, inspiratory time 1.0 seconds, rise of 3 and 40% FiO2. The settings will be adjusted for comfort. She should wear this p.r.n. during the day and every night. Will follow with you History of Present Illness History of Present Illness Consult date: 02/11/22 Chief complaint: copd exacerbation Narrative: 02/11/2022: This is a new pul
[2022-02-11] MEDS: ALBUTEROL SULFATE NEB 2.5 MG/3 ML INH INHALATION ×3 (17:15→23:55)
[2022-02-11 17:47] LABS: Glucose Point of Care 162 mg/dl (65-105)
[2022-02-11 21:19] LABS: Glucose Point of Care 161 mg/dl (65-105)
[2022-02-12] VITALS (26 sets, daily range): BP systolic 133–162; BP diastolic 69–84; PULSE 71–87; RESP 16–24; TEMP 36.3–36.8; O2SAT 93–100
[2022-02-12 04:03] LABS: Basophils Percent Auto 0.1 % (0.2-1.2); Hematocrit 31.9 % (37.0-47.0); Hemoglobin 9.7 g/dL (12.0-15.0); Immature Granulocyte Absolute 0.07 K/mm3 (0.00-0.031); Immature Granulocyte Percent A 0.6 % (0-0.5); Lymphocytes Absolute Auto 0.36 K/mm3 (0.9-3.2); Mean Corpuscular HGB Conc 30.4 g/dl (32-36); Mean Corpuscular Hemoglobin 26.2 pg (26-34); Mean Corpuscular Volume 86.2 fl (80-100); Mean Platelet Volume 10.1 fl (7.4-10.4); Monocytes Absolute Auto 1.2 K/mm3 (0.1-0.6); Monocytes Percent Auto 9.9 % (2.6-8.5); Neutrophils Absolute Auto 10.3 K/mm3 (1.3-6.7); Neutrophils Percent Auto 86.4 % (45.5-73.1); Platelet Count Result 229 k/mm3 (150-375); Red Cell Distribution Width 14.5 % (11.5-14.5); White Blood Count 11.9 K/mm3 (4.5-10.0)
[2022-02-12 04:20] LABS: Alanine Aminotransferase 43 U/L (6-35); Albumin Level 3.4 g/dL (3.5-5.1); Alkaline Phosphatase 62 U/L (38-126); Aspartate Amino Transferase 27 U/L (14-36); Bilirubin,Total 0.3 mg/dL (0.2-1.3); Blood Urea Nitrogen 43 mg/dL (7-17); Carbon Dioxide > 40 mmol/L (22-30); Chloride 86 mmol/L (98-107); Estimated CRCL calculation 49 ml/min; Estimated Glomerular Filt Rate > 60; Glucose 165 mg/dL (65-110); Magnesium 2.3 mg/dL (1.6-2.3); Phosphorus 3.2 mg/dL (2.5-4.5); Potassium 4.2 mmol/L (3.4-5.0); Sodium 132 mmol/L (137-145)
[2022-02-12] MEDS: ALPRAZolam (*CRX) 0.25 MG TABLET PO (04:30)
[2022-02-12] MEDS: methylPREDNISolone SOD SUCC 40 MG VIAL 20 MG IV PUSH (04:31)
[2022-02-12] MEDS: METOCLOPRAMIDE HCL INJ 10 MG/2 ML VIAL 5 MG IV PUSH ×3 (04:31→16:50)
[2022-02-12] MEDS: CENTRAL LINE FLUSH 10 ML IV PUSH ×4 (04:32→16:56)
[2022-02-12 05:48] LABS: Alveolar/Arterial O2 Gradient 94.8 mmHg; Base Excess ABG 15.9 mEq/l (+/-2.0); Fractional Inspired Oxygen 40 %; HCO3 ABG 42.8 mEq/l (22.0-26.0); Methemoglobin ABG 0.4 %THb (0-1.5); Oxygen Content ABG 15.5 %vol (16.0-22.0); Oxygen Saturation ABG 98.2 % (95.0-100.0); Oxyhemoglobin 97.3 % THb (90.0-100.0); PO2 ABG 115.4 mmHg (80.0-100.0); PO2 FiO2 Ratio Arterial Blood 2.88 %; Reduced Hemoglobin 2.3 %THb (0-5.0); Total Hemoglobin 11.2 g/dL (12.0-18.0); pH ABG 7.435 (7.350-7.450)
[2022-02-12 05:49] LABS: Device OTHER DEVICE; Modified Allen's Test Pass; PCO2 ABG 65.2 mmHg (35.0-45.0); Site Drawn LEFT RADIAL
[2022-02-12] MEDS: BUDESONIDE RESPULE NEB 0.5 MG/2 ML AMP INHALATION ×2 (08:19→21:19)
[2022-02-12] MEDS: IPRATROPIUM BR 0.02% INH SOLN 0.5 MG/2.5 ML VIAL INHALATION ×4 (08:19→21:19)
[2022-02-12] MEDS: ALBUTEROL SULFATE NEB 2.5 MG/3 ML INH INHALATION ×4 (08:19→21:19)
[2022-02-12] MEDS: PANTOPRAZOLE SODIUM IV 40 MG VIAL IV PUSH (08:41)
[2022-02-12] MEDS: ENOXAPARIN 40 MG/0.4 ML SYRINGE SUB-Q (08:41)
[2022-02-12] MEDS: SENNA/DOCUSATE SODIUM TABLET 1 TAB PO ×2 (08:41→16:50)
[2022-02-12] MEDS: METOPROLOL TARTRATE 12.5 MG TABLET PO ×2 (08:42→21:04)
[2022-02-12] MEDS: amLODIPine BESYLATE 5 MG TABLET PO (08:42)
[2022-02-12] MEDS: ACETAMINOPHEN 325 MG TABLET 650 MG PO (08:45)
[2022-02-12 08:55] LABS: Glucose Point of Care 157 mg/dl (65-105)
[2022-02-12] MEDS: LABETALOL HCL INJ 100 MG/20 ML VIAL 20 MG IV PUSH (09:02)
--- NOTE | 2022-02-12 09:36 | PM.IMPN ---
Progress Note: A&P Assessment and Plan (1) Acute on chronic respiratory failure with hypoxia and hypercapnia: Code(s): J96.21 - Acute and chronic respiratory failure with hypoxia; J96.22 - Acute and chronic respiratory failure with hypercapnia Status: Acute Assessment and Plan: Extubated 02/10/22, on 3L nc Previously on IV steroids, will transition to oral steroids today on 3L nc (2) COPD exacerbation: Code(s): J44.1 - Chronic obstructive pulmonary disease with (acute) exacerbation Status: Chronic Assessment and Plan: See above for details (3) New onset type 2 diabetes mellitus: Code(s): E11.9 - Type 2 diabetes mellitus without complications Status: Acute Assessment and Plan: Continue Accu-Cheks, sliding scale insulin (4) Benign essential hypertension: Code(s): I10 - Essential (primary) hypertension Status: Acute Assessment and Plan: Controlled (5) Hyponatremia: Code(s): E87.1 - Hypo-osmolality and hyponatremia Status: Acute Assessment and Plan: stable, 132 today (6) Anemia: Code(s): D64.9 - Anemia, unspecified Status: Acute Assessment and Plan: hgb stable around 9-10 Plan DVT prophylaxis with Lovenox GI prophylaxis with PPI Code status full code Subjective Date/time seen: 02/12/22 09:36 Interval history: No overnight events noted. No fevers or chills. No chest pain, nausea, vomiting or diarrhea. Patient is complaining of shortness of breath, states she is a little worse than baseline. She states she feels a little worse than yesterday. Review of Systems Review of Systems: 12 point review of systems was assessed and was negative except as noted in the HPI Exam Narrative: General: No acute distress, alert and oriented per baseline HEENT: Atraumatic, normocephalic, mucous membranes moist CV: Regular rate and rhythm, S1, S2 Lungs: Moderate air entry, expiratory wheezes noted Abdomen: Soft, nontender, nondistended Extremities: Chronic venous stasis dermatitis noted B/L LE Objective Data Vital Signs Vital Signs: Vital Signs - 24 hr 02/11/22 10:00 02/11/22 10:02/11/22 11:42 Temperature 98.5 F Pulse Rate 85 84 82 Respiratory Rate 20 17 Blood Pressure 175/101 H Pulse Oximetry 100 Oxygen Delivery Oxygen Flow Rate Fraction of Inspired Oxygen 02/11/22 11:43 02/11/22 11:49 02/11/22 11:58 Temperature Pulse Rate 82 Respiratory Rate 17 Blood Pressure Pulse Oximetry 100 96 Oxygen Delivery Nasal Cannula Nasal Cannula Oxygen Flow Rate 3 3 Fraction of Inspired Oxygen 02/11/22 12:00 02/11/22 12:06 02/11/22 14:00 Temperature 98.3 F 98.7 F Pulse Rate 81 85 80 Respiratory Rate 17 20 Blood Pressure 169/81 H 181/94 H Pulse Oximetry 100 100 Oxygen Delivery Oxygen Flow Rate Fraction of Inspired Oxygen 02/11/22 14:00 02/11/22 15:17 02/11/22 15:17 Temperature Pulse Rate 81 78 Respiratory Rate Blood Pressure 170/77 H Pulse Oximetry Oxygen Delivery Oxygen Flow Rate Fraction of Inspired Oxygen 02/11/22 16:00 02/11/22 16:00 02/11/22 16:00 Temperature Pulse Rate 76 75 Respiratory Rate 18 Blood Pressure 166/84 H Pulse Oximetry 94 99 Oxygen Delivery Nasal Cannula Oxygen Flow Rate 3 Fraction of Inspired Oxygen 02/11/22 17:15 02/11/22 17:21 02/11/22 18:00 Temperature 97.6 F Pulse Rate 76 76 81 Respiratory Rate 24 H 25 H 19 Blood Pressure 157/74 H Pulse Oximetry 94 Oxygen Delivery Oxygen Flow Rate Fraction of Inspired Oxygen 02/11/22 18:00 02/11/22 19:59 02/11/22 20:52 Temperature Pulse Rate 82 85 Respiratory Rate Blood Pressure Pulse Oximetry 99 Oxygen Delivery Nasal Cannula Oxygen Flow Rate 3 Fraction of Inspired Oxygen 02/11/22 20:52 02/11/22 20:00 02/11/22 20:00 Temperature 97.9 F Pulse Rate 81 84 82 Respiratory Rate 22
--- NOTE | 2022-02-12 11:09 | PM.PNPUL ---
Progress Note: A&P Assessment and Plan (1) COPD exacerbation: Code(s): J44.1 - Chronic obstructive pulmonary disease with (acute) exacerbation Status: Acute Assessment and Plan: 81-year-old woman with a history of COPD (tobacco 47 PY quit [address] chest 08/19/2017 with severe apical predominant centrilobular emphysema), I have no PFTs, with chronic hypoxemic and hypercarbic respiratory failure on 3 L nasal cannula 22/11 and noncompliant with her home noninvasive ventilator with the Astral mode, obstructive sleep apnea diagnosed 8 years ago intolerant to CPAP and intolerant to noninvasive ventilation, grade 1 diastolic dysfunction, morbid obesity, HTN, and depression. She was maintained on Symbicort 160-4.5 at 2 puffs b.i.d., Spiriva Handy haler 1 puff q.day, albuterol 2 puffs q.i.d. p.r.n. in October 2021 At baseline patient has a chair lift at home and the and the patient state that she can stand up and pivot to wheelchair.? She has been nonambulatory for over a year. On 11/23/2021 I took care the patient and she had a COPD exacerbation with chronic hypercarbic and hypoxemic respiratory failure. she completed treatment with steroids, antibiotics, and was discharged on Symbicort and Spiriva as well as noninvasive ventilation with: Astral rate of 20, tidal volume 450, EPAP 7, minimal pressure support 6, maximal pressure support 25, rise time 200 milliseconds, TI minimum 1.0, TI maximum 1.5 seconds, cycles 50% with 5 L bleed in. her blood gas at the end of the night on these settings was 7.42/57/129. 02/11 currently the patient presents was a COPD exacerbation and has completed 6 days of ceftriaxone and azithromycin, Solu-Medrol was started on 02/06. currently she is on 40 mg IV q.6 hours, I will decrease to 20 Q 6 today. continue albuterol 2.5 mg nebs q.4 hours, ipratropium nebulized 0.5 mg q.4 hours, budesonide 0.5 mg q.12 hours. patient was off the BiPAP intermittently throughout the day. Echocardiogram demonstrated LVEF 60-65%, diastolic dysfunction, moderate aortic stenosis with a valve area of 1.39 and a gradient of 12, mild mitral regurg, PASP 48. On 05/05/2018 patient's RVSP was 40. 10/14 Overall the patient states she is breathing close to her normal. She has a dry cough, no hemoptysis. She is on 3 L nasal cannula saturations 100%. Her white blood cell count is 11.9, her creatinine is 0.8. Her chest x-ray while she is on BiPAP shows hyperexpansion with no infiltrates or effusions. patient has no wheezing and today is day 7 of medrol steroids. Will switch to prednisone 40 today. Will continue albuterol and ipratropium nebulizers q.4 hours and budesonide 0.5 mg Q 12 hours. (2) Acute on chronic respiratory failure with hypoxia and hypercapnia: Code(s): J96.21 - Acute and chronic respiratory failure with hypoxia; J96.22 - Acute and chronic respiratory failure with hypercapnia Status: Acute Assessment and Plan: the patient has a long history of chronic hypercarbic and hypoxemic respiratory failure from her COPD and has been prescribed a noninvasive Astral ventilator on 05/05/2021. she has had difficulty with compliance ever since then. I obtained the most recent download from [facility] from 11/21 through 01/19/2022. The patient is on an Astral 150 with a PSSV mode. Total usage days is ; of 20/60 days and usage greater than or equal to 4 hours is 3 of 60 or 5%. Average usage on days used is 2 hours and 33 minutes. Patient is on rate of 20, a tidal volume of 450, EPAP of 7, minimum pressure support 6, maximal pressure support 25, rise time 200, TI minimum 1.0, TI maximum 1.5, cycle 50% with 5 L bleed in. Her AHI is 0.5 with an apnea index 0.3 and a hypopnea index 0.2. Her median leak is 26.0, 95th percentile leak is 8.7, her 95th percentile leak is 59.5. Her median EPAP is 6.8, her median peak inspiratory pressure is 17.4, her median tidal volume is 441, her median respiratory rate is 21, h
[2022-02-12] MEDS: predniSONE 10 MG TABLET 50 MG PO (11:49)
--- NOTE | 2022-02-12 12:14 | PCFNICU ---
ICU Rounding Note: Pt current nutrition is Minced & moist level 5, diabetic, heart healthy. Intakes improving. Average intake 52%. Nutrition recommendation: Continue current diet order Last recorded weight is 89 kg. Bowel Motility: No BM charted Labs Reviewed: Hg 9.7, Hct 31.9, Na 132, BUN 43, Glu 157 Meds Noted: Protonix, Lovenox, Prednisone, Reglan Skin: Bruising Additional Notes: Extubated, intakes improving. Following daily in ICU rounds.
[2022-02-12 12:44] LABS: Glucose Point of Care 189 mg/dl (65-105)
--- NOTE | 2022-02-12 14:45 | PC.NURSE ---
This patient, Belinda Black, was transferred to [facility] on 02/12/22 at 1445. Personal belongings sent with patient. Report given to [facility]. Appropriate documentation sent with patient.
--- NOTE | 2022-02-12 15:10 | PC.NURSE ---
This patient, Belinda Black, was received from [ICU ] on 02/12/22 at 1510. Patient oriented to unit policies and routines. Patient in bed resting comfortably at this time with no complaints at this time.
[2022-02-12 16:47] LABS: Glucose Point of Care 143 mg/dl (65-105)
[2022-02-12 21:25] LABS: Glucose Point of Care 175 mg/dl (65-105)
[2022-02-13] VITALS (27 sets, daily range): BP systolic 121–154; BP diastolic 66–88; PULSE 72–87; RESP 12–22; TEMP 36.1–36.8; O2SAT 95–100
[2022-02-13] MEDS: ALBUTEROL SULFATE NEB 2.5 MG/3 ML INH INHALATION ×6 (01:44→21:02)
[2022-02-13] MEDS: IPRATROPIUM BR 0.02% INH SOLN 0.5 MG/2.5 ML VIAL INHALATION ×6 (01:45→21:02)
[2022-02-13] MEDS: CENTRAL LINE FLUSH 10 ML IV PUSH ×4 (05:16→21:00)
[2022-02-13] MEDS: BUDESONIDE RESPULE NEB 0.5 MG/2 ML AMP INHALATION ×2 (08:13→21:02)
[2022-02-13 08:46] LABS: Glucose Point of Care 95 mg/dl (65-105)
--- NOTE | 2022-02-13 09:10 | PM.PNPUL ---
Progress Note: A&P Assessment and Plan (1) COPD exacerbation: Code(s): J44.1 - Chronic obstructive pulmonary disease with (acute) exacerbation Status: Acute Assessment and Plan: 81-year-old woman with a history of COPD (tobacco 47 PY quit [address] chest 08/19/2017 with severe apical predominant centrilobular emphysema), I have no PFTs, with chronic hypoxemic and hypercarbic respiratory failure on 3 L nasal cannula 22/11 and noncompliant with her home noninvasive ventilator )usage >=4 hours 5% on 01/21/2022) with the Astral 150 with a PSSV mode. Total usage days is ; of 20/60 days and usage greater than or equal to 4 hours is 3 of 60 or 5%. Average usage on days used is 2 hours and 33 minutes. Patient is on rate of 20, a tidal volume of 450, EPAP of 7, minimum pressure support 6, maximal pressure support 25, rise time 200, TI minimum 1.0, TI maximum 1.5, cycle 50% with 5 L bleed in, obstructive sleep apnea diagnosed 8 years ago intolerant to CPAP and intolerant to noninvasive ventilation, grade 1 diastolic dysfunction, morbid obesity, HTN, and depression. She was maintained on Symbicort 160-4.5 at 2 puffs b.i.d., Spiriva Handy haler 1 puff q.day, albuterol 2 puffs q.i.d. p.r.n. in October 2021 At baseline patient has a chair lift at home and the and the patient state that she can stand up and pivot to wheelchair.? She has been nonambulatory for over a year. On 11/23/2021 I took care the patient and she had a COPD exacerbation with chronic hypercarbic and hypoxemic respiratory failure. she completed treatment with steroids, antibiotics, and was discharged on Symbicort and Spiriva as well as noninvasive ventilation with: Astral rate of 20, tidal volume 450, EPAP 7, minimal pressure support 6, maximal pressure support 25, rise time 200 milliseconds, TI minimum 1.0, TI maximum 1.5 seconds, cycles 50% with 5 L bleed in. her blood gas at the end of the night on these settings was 7.42/57/129. 02/11 currently the patient presents was a COPD exacerbation and has completed 6 days of ceftriaxone and azithromycin, Solu-Medrol was started on 02/06. currently she is on 40 mg IV q.6 hours, I will decrease to 20 Q 6 today. continue albuterol 2.5 mg nebs q.4 hours, ipratropium nebulized 0.5 mg q.4 hours, budesonide 0.5 mg q.12 hours. patient was off the BiPAP intermittently throughout the day. Echocardiogram demonstrated LVEF 60-65%, diastolic dysfunction, moderate aortic stenosis with a valve area of 1.39 and a gradient of 12, mild mitral regurg, PASP 48. On 05/05/2018 patient's RVSP was 40. 02/12 Overall the patient states she is breathing close to her normal. She has a dry cough, no hemoptysis. She is on 3 L nasal cannula saturations 100%. Her white blood cell count is 11.9, her creatinine is 0.8. Her chest x-ray while she is on BiPAP shows hyperexpansion with no infiltrates or effusions. Patient has no wheezing and today is day 7 of medrol steroids. Will switch to prednisone 40 today. Will continue albuterol and ipratropium nebulizers q.4 hours and budesonide 0.5 mg Q 12 hours. 02/13 Today she tells me that her breathing is back at her baseline. She has a dry cough. She has no wheezing today. She has received 8 days of steroids and I will discontinue today. Will continue albuterol, ipratropium nebulizers Q 4 and budesonide 0.5 mg q.12 hours. (2) Acute on chronic respiratory failure with hypoxia and hypercapnia: Code(s): J96.21 - Acute and chronic respiratory failure with hypoxia; J96.22 - Acute and chronic respiratory failure with hypercapnia Status: Acute Assessment and Plan: the patient has a long history of chronic hypercarbic and hypoxemic respiratory failure from her COPD and has been prescribed a noninvasive Astral ventilator on 05/05/2021. she has had difficulty with compliance ever since then. I obtained the most recent download from [email or web address] from 11/21 through 01/19/2022. The patient i
[2022-02-13] MEDS: amLODIPine BESYLATE 5 MG TABLET PO (10:17)
[2022-02-13] MEDS: SENNA/DOCUSATE SODIUM TABLET 1 TAB PO ×2 (10:17→17:51)
[2022-02-13] MEDS: METOPROLOL TARTRATE 12.5 MG TABLET PO ×2 (10:18→20:59)
[2022-02-13] MEDS: PANTOPRAZOLE SODIUM IV 40 MG VIAL IV PUSH (10:18)
[2022-02-13] MEDS: ENOXAPARIN 40 MG/0.4 ML SYRINGE SUB-Q (10:18)
[2022-02-13] MEDS: ACETAMINOPHEN 325 MG TABLET 650 MG PO (10:18)
--- NOTE | 2022-02-13 11:01 | PM.IMPN ---
Progress Note: A&P Assessment and Plan (1) Acute on chronic respiratory failure with hypoxia and hypercapnia: Code(s): J96.21 - Acute and chronic respiratory failure with hypoxia; J96.22 - Acute and chronic respiratory failure with hypercapnia Status: Acute Assessment and Plan: Appreciate pulmonology consultation, observe off steroids antibiotics, anticipate discharge home tomorrow (2) COPD exacerbation: Code(s): J44.1 - Chronic obstructive pulmonary disease with (acute) exacerbation Status: Chronic Assessment and Plan: Per pulmonology recommendations will place on home machine with 5 L of oxygen tonight, check ABG in the morning before patient comes off the machine, anticipate discharge home tomorrow with close outpatient follow-up by pulmonology (3) New onset type 2 diabetes mellitus: Code(s): E11.9 - Type 2 diabetes mellitus without complications Status: Acute Assessment and Plan: Continue Accu-Cheks, sliding scale insulin (4) Benign essential hypertension: Code(s): I10 - Essential (primary) hypertension Status: Acute Assessment and Plan: Controlled (5) Hyponatremia: Code(s): E87.1 - Hypo-osmolality and hyponatremia Status: Acute Assessment and Plan: Stable (6) Anemia: Code(s): D64.9 - Anemia, unspecified Status: Acute Assessment and Plan: Stable Plan DVT prophylaxis with Lovenox GI prophylaxis with PPI Code status full code Subjective Date/time seen: 02/13/22 11:01 Interval history: Patient states she feels like her breathing is back to baseline. No overnight events noted. No chest pain. No nausea, vomiting or diarrhea. No fevers or chills. She is complaining of some pain and constipation. She is requesting and [place] which is similar to what she takes at home. Review of Systems Review of Systems: 12 point review of systems was assessed and was negative except as noted in the HPI Exam Narrative: General: No acute distress, alert and oriented per baseline HEENT: Atraumatic, normocephalic, mucous membranes moist CV: Regular rate and rhythm, S1, S2 Lungs: Clear to auscultation bilaterally, diminished throughout but no wheezes noted Abdomen: Soft, nontender, nondistended Extremities: Chronic venous stasis dermatitis noted B/L LE Objective Data Vital Signs Vital Signs: Vital Signs - 24 hr 02/12/22 11:38 02/12/22 11:48 02/12/22 12:00 Temperature Pulse Rate 74 80 73 Respiratory Rate 21 H 16 Blood Pressure Pulse Oximetry Oxygen Delivery Oxygen Flow Rate Fraction of Inspired Oxygen 02/12/22 12:00 02/12/22 14:00 02/12/22 15:40 Temperature 98.3 F Pulse Rate 73 72 76 Respiratory Rate 22 H 20 Blood Pressure 149/81 H Pulse Oximetry 100 Oxygen Delivery Oxygen Flow Rate Fraction of Inspired Oxygen 02/12/22 15:49 02/12/22 16:00 02/12/22 16:00 Temperature 97.9 F Pulse Rate 83 78 78 Respiratory Rate 20 20 Blood Pressure 144/79 H Pulse Oximetry 98 Oxygen Delivery Oxygen Flow Rate Fraction of Inspired Oxygen 02/12/22 20:43 02/12/22 21:24 02/12/22 21:24 Temperature 97.3 F L Pulse Rate 81 80 Respiratory Rate 18 22 H 17 Blood Pressure 147/72 H Pulse Oximetry 98 Oxygen Delivery BiPAP Oxygen Flow Rate Fraction of Inspired Oxygen 02/12/22 21:33 02/12/22 23:45 02/13/22 01:07 Temperature 97.0 F L Pulse Rate 87 87 75 Respiratory Rate 16 20 22 H Blood Pressure 151/82 H Pulse Oximetry 97 94 100 Oxygen Delivery Nasal Cannula BiPAP Oxygen Flow Rate 4 Fraction of Inspired Oxygen 36 02/13/22 01:45 02/13/22 01:46 02/12/22 20:00 Temperature Pulse Rate 78 84 79 Respiratory Rate 22 H 22 H Blood Pressure Pulse Oximetry 95 Oxygen Delivery BiPAP Oxygen Flow Rate Fraction of Inspired Oxygen 02/12/22 20:00 02/13/22 00:00 02/13/22 04:50 Temperature Pulse Rate 84 78 8
[2022-02-13 12:20] LABS: Glucose Point of Care 112 mg/dl (65-105)
[2022-02-13] MEDS: METOCLOPRAMIDE HCL INJ 10 MG/2 ML VIAL 5 MG IV PUSH ×3 (12:51→23:23)
[2022-02-13] MEDS: HYDROcodone/acetaminophen (*CRX) 7.5-325 MG TABLET 1 TAB PO ×2 (12:51→18:58)
[2022-02-13 17:29] LABS: Glucose Point of Care 114 mg/dl (65-105)
[2022-02-13] MEDS: ALPRAZolam (*CRX) 0.25 MG TABLET PO (17:52)
[2022-02-13] MEDS: PHENYLEPH/MINERAL OIL/PETROLAT OINTMENT 57 GM 1 APPLIC RECTAL (18:59)
[2022-02-13 20:25] LABS: Glucose Point of Care 116 mg/dl (65-105)
[2022-02-13] MEDS: WATER FOR IRRIGATION, STERILE 1,000 ML BOTTLE 1000 ML (23:48)
--- NOTE | 2022-02-13 23:51 | PCRCNOTE ---
RT apnea link placed on pt as order request. pt on home unit with 5 liters bleed in. Sp02 97% at this time.
[2022-02-14] VITALS (26 sets, daily range): BP systolic 140–161; BP diastolic 56–89; PULSE 66–87; RESP 16–22; TEMP 36.2–37.3; O2SAT 86–100
[2022-02-14] MEDS: ALBUTEROL SULFATE NEB 2.5 MG/3 ML INH INHALATION ×4 (04:25→20:42)
[2022-02-14] MEDS: IPRATROPIUM BR 0.02% INH SOLN 0.5 MG/2.5 ML VIAL INHALATION ×4 (04:25→20:42)
[2022-02-14 05:10] LABS: Base Excess ABG 15.6 mEq/l (+/-2.0); Fractional Inspired Oxygen 36 %; HCO3 ABG 42.3 mEq/l (22.0-26.0); Oxygen Content ABG 15.4 %vol (16.0-22.0); Oxygen Saturation ABG 99.4 % (95.0-100.0); Oxyhemoglobin 98.2 % THb (90.0-100.0); PO2 ABG 213.9 mmHg (80.0-100.0); PO2 FiO2 Ratio Arterial Blood 5.94 %; Total Hemoglobin 10.8 g/dL (12.0-18.0); pH ABG 7.437 (7.350-7.450)
[2022-02-14 05:15] LABS: Device NASAL CANNULA; Modified Allen's Test Pass; PCO2 ABG 64.2 mmHg (35.0-45.0); Site Drawn RIGHT RADIAL
[2022-02-14] MEDS: METOCLOPRAMIDE HCL INJ 10 MG/2 ML VIAL 5 MG IV PUSH ×2 (05:18→23:09)
[2022-02-14] MEDS: CENTRAL LINE FLUSH 10 ML IV PUSH ×4 (05:19→20:31)
[2022-02-14] MEDS: HYDROcodone/acetaminophen (*CRX) 7.5-325 MG TABLET 1 TAB PO ×4 (05:19→21:44)
--- NOTE | 2022-02-14 07:51 | PM.DS ---
DS: Admitting Diagnosis Discharge Date February 14, 2022 Admitting Diagnosis Shortness of breath DS: Discharge Diagnosis Discharge Diagnosis (1) Acute on chronic respiratory failure with hypoxia and hypercapnia: Code(s): J96.21 - Acute and chronic respiratory failure with hypoxia; J96.22 - Acute and chronic respiratory failure with hypercapnia Status: Acute Assessment and Plan: Appreciate pulmonology consultation, observe off steroids antibiotics, anticipate discharge home tomorrow (2) COPD exacerbation: Code(s): J44.1 - Chronic obstructive pulmonary disease with (acute) exacerbation Status: Chronic Assessment and Plan: Per pulmonology recommendations will place on home machine with 5 L of oxygen tonight, check ABG in the morning before patient comes off the machine, anticipate discharge home tomorrow with close outpatient follow-up by pulmonology (3) New onset type 2 diabetes mellitus: Code(s): E11.9 - Type 2 diabetes mellitus without complications Status: Acute Assessment and Plan: Continue Accu-Cheks, sliding scale insulin (4) Benign essential hypertension: Code(s): I10 - Essential (primary) hypertension Status: Acute Assessment and Plan: Controlled (5) Hyponatremia: Code(s): E87.1 - Hypo-osmolality and hyponatremia Status: Acute Assessment and Plan: Stable (6) Anemia: Code(s): D64.9 - Anemia, unspecified Status: Acute Assessment and Plan: Stable Plan DVT prophylaxis with Lovenox GI prophylaxis with PPI Code status full code DS: Summary Hospital Course Hospital Course: 81 year old female with pertinent past medical history Modic stenosis chronic diastolic heart failure, chronic hyponatremia, chronic pain syndrome from a chronic respiratory failure, COPD with emphysema uses 3 L oxygen via nasal cannula at home, depression, essential hypertension, GERD from obstructive sleep apnea, uses trilogy at home, ulcerative colitis presented the ED 02/05/2022 with complains of shortness of breath which has been worsening 3 days prior to admission, she also states.? She has been using her inhalers with minimal relief.? Patient denies any fevers, was complaining of some cough who he will productive.? Patient was placed on BiPAP and transferred to medical floor. On 02/07 late in the evening patient was minimally responsive, wound open eyes to deep sternal rub, she did have a bilious emesis noted on a gown by the provider.? ABG showed a pCO2 of > 80.? Decision was made to intubate the patient for airway protection.? Patient was successfully intubated.? CT scan of the abdomen and pelvis showed gastric distension.? CT scan of the brain showed stable nonspecific cerebral white matter disease which likely represents chronic small vessel ischemic disease.? No acute intracranial abnormalities were noted.? Chest x-ray showed worsening airspace opacities at lung bases which is consistent with atelectasis versus pneumonia, small pleural effusions. Patient seen and examined the ICU this morning, remains intubated, on CMV mode of ventilation, peep of 5, 35% FiO2.? Sedated with fentanyl and Versed infusion.? Patient does open her eyes, follows simple commands.? Urine output has been adequate, hemodynamically stable. Echo was performed and showed an EF of 60-65% with abnormal diastolic function, moderate aortic valve stenosis, mild pulmonary hypertension. Pulmonology was consulted. She completed 6 days of Rocephin and azithromycin and this was discontinued. She also had 6 days of steroids. She was able to be extubated and moved to the medical-surgical floor. Pulmonology optimized her noninvasive ventilation use in the evening. Home O2 eval was ordered but unable to be performed prior to patient leaving the hospital. Time Spent with Patient Time attestation: Total time spent providing and/or coordinating discharge services: Exam Narrative:
[2022-02-14] MEDS: BUDESONIDE RESPULE NEB 0.5 MG/2 ML AMP INHALATION ×2 (08:39→20:42)
[2022-02-14] MEDS: ENOXAPARIN 40 MG/0.4 ML SYRINGE SUB-Q (08:42)
[2022-02-14] MEDS: METOPROLOL TARTRATE 12.5 MG TABLET PO ×2 (08:42→20:26)
[2022-02-14] MEDS: SENNA/DOCUSATE SODIUM TABLET 1 TAB PO ×2 (08:42→17:37)
[2022-02-14] MEDS: PANTOPRAZOLE SODIUM IV 40 MG VIAL IV PUSH (08:42)
[2022-02-14] MEDS: amLODIPine BESYLATE 5 MG TABLET PO (08:42)
[2022-02-14 08:57] LABS: Glucose Point of Care 78 mg/dl (65-105)
--- NOTE | 2022-02-14 09:01 | HOMEO2EVAL ---
Evaluation was performed at [facility] Home Oxygen Evaluation RC: Home Oxygen (O2) Evaluation Start: 02/14/22 07:39 Freq: ONCE Status: Active Protocol: RPE Activity Type Activity Date Activity User E-sign Co-sign Detail Recorded Client Recorded Date Recorded By Document 02/14/22 08:35 [facility] [email or web address] 02/14/22 09:01 [facility] Document 02/14/22 08:43 [facility] [email or web address] 02/14/22 09:01 [facility] Document 02/14/22 08:45 [facility] [email or web address] 02/14/22 09:01 [facility] Document 02/14/22 08:48 [facility] [email or web address] 02/14/22 09:01 [facility] 02/14/22 02/14/22 02/14/22 08:35 08:43 08:45 Home O2 Evaluation [Oxygen] -Test Phase Resting Resting Resting -Oxygen Delivery Nasal Cannula Nasal Cannula -Oxygen Flow Rate (L/min) 2 3 [Pulse Oximetry] -Pulse Oximetry (90-100 %) 86 L 89 L 94 [Pulse Rate] -Pulse Rate (60-100 beats/min) 72 77 74 [Evaluation] -Activity Tolerance -Rating of Perceived Dyspnea (PD) +2 Mild, Some +2 Mild, Some Difficulty, Difficulty, Noticeable to Noticeable to the Observer the Observer [Comments] -Home Oxygen Evaluation Comments [Charges] -Treatment Charges O2 Evaluation - Inpatient 02/14/22 08:48 Home O2 Evaluation [Oxygen] -Test Phase Exercise -Oxygen Delivery Nasal Cannula -Oxygen Flow Rate (L/min) 3 [Pulse Oximetry] -Pulse Oximetry (90-100 %) 96 [Pulse Rate] -Pulse Rate (60-100 beats/min) 72 [Evaluation] -Activity Tolerance Fair -Rating of Perceived Dyspnea (PD) +3 Moderate Difficulty, But Can Continue [Comments] -Home Oxygen Evaluation Comments PT NOT AMBULATORY, EXERCISED IN BED FOR EVALUATION. [Charges] -Treatment Charges
--- NOTE | 2022-02-14 09:01 | PCRCNOTE ---
Home O2 evaluation complete. Patients home settings are correct, no changes necessary.
[2022-02-14 12:03] LABS: Glucose Point of Care 107 mg/dl (65-105)
--- NOTE | 2022-02-14 12:37 | PC.NURSE ---
Spoke with Oneal, patient's , to make sure that he is able to operate the patient's at home breathing machine. states over the phone that he does not need any instruction. Patient also states that she is able to operate breathing machine and is further instructed that if she has questions, then patient should contact provider of home oxygen machine, Ollie.
[2022-02-14] MEDS: PHENYLEPH/MINERAL OIL/PETROLAT OINTMENT 57 GM 1 APPLIC RECTAL (12:53)
[2022-02-14 13:34] LABS: Basophils Percent Auto 0.1 % (0.2-1.2); Eosinophils Absolute Auto 0.3 K/mm3 (0-0.3); Eosinophils Percent Auto 2.2 % (0-4.4); Hematocrit 30.1 % (37.0-47.0); Hemoglobin 9.1 g/dL (12.0-15.0); Immature Granulocyte Absolute 0.13 K/mm3 (0.00-0.031); Lymphocytes Absolute Auto 0.78 K/mm3 (0.9-3.2); Lymphocytes Percent Auto 6.1 % (18.3-44.2); Mean Corpuscular HGB Conc 30.2 g/dl (32-36); Mean Corpuscular Hemoglobin 25.8 pg (26-34); Mean Corpuscular Volume 85.3 fl (80-100); Mean Platelet Volume 10.2 fl (7.4-10.4); Monocytes Absolute Auto 1.9 K/mm3 (0.1-0.6); Monocytes Percent Auto 14.7 % (2.6-8.5); Neutrophils Absolute Auto 9.7 K/mm3 (1.3-6.7); Neutrophils Percent Auto 75.9 % (45.5-73.1); Platelet Count Result 272 k/mm3 (150-375); Red Blood Count 3.53 M/mm3 (4.2-5.4); White Blood Count 12.8 K/mm3 (4.5-10.0)
--- NOTE | 2022-02-14 13:51 | PM.IMPN ---
Progress Note: A&P Assessment and Plan (1) Acute on chronic respiratory failure with hypoxia and hypercapnia: Code(s): J96.21 - Acute and chronic respiratory failure with hypoxia; J96.22 - Acute and chronic respiratory failure with hypercapnia Status: Acute Assessment and Plan: Appreciate pulmonology consultation, observe off steroids antibiotics, anticipate discharge home today (2) COPD exacerbation: Code(s): J44.1 - Chronic obstructive pulmonary disease with (acute) exacerbation Status: Chronic Assessment and Plan: stable on home machine per ABG this morning, f/u pulm outpatient (3) New onset type 2 diabetes mellitus: Code(s): E11.9 - Type 2 diabetes mellitus without complications Status: Acute Assessment and Plan: Continue Accu-Cheks, sliding scale insulin (4) Benign essential hypertension: Code(s): I10 - Essential (primary) hypertension Status: Acute Assessment and Plan: Controlled (5) Hyponatremia: Code(s): E87.1 - Hypo-osmolality and hyponatremia Status: Acute Assessment and Plan: Stable (6) Anemia: Code(s): D64.9 - Anemia, unspecified Status: Acute Assessment and Plan: Stable (7) Rectal pain: Code(s): K62.89 - Other specified diseases of anus and rectum Status: Acute Assessment and Plan: continued rectal pain despite bowel regimen, tucks pads, preparation H cream, ddx includes internal hemorrhoids, proctalgia fugax, IBD, ??? GI consult pending, then d/c home with outpatient f/u Plan DVT prophylaxis with Lovenox GI prophylaxis with PPI Code status full code Subjective Date/time seen: 02/14/22 13:51 Interval history: Patient states she feels like her breathing is back to baseline. No overnight events noted. No chest pain. No nausea, vomiting or diarrhea. No fevers or chills. She is complaining of some pain and constipation. She is requesting and Margaret which is similar to what she takes at home. Exam Narrative: General: No acute distress, alert and oriented per baseline HEENT: Atraumatic, normocephalic, mucous membranes moist CV: Regular rate and rhythm, S1, S2 Lungs: Clear to auscultation bilaterally, diminished throughout but no wheezes noted Abdomen: Soft, nontender, nondistended Extremities: Chronic venous stasis dermatitis noted B/L LE Objective Data Vital Signs Vital Signs: Vital Signs - 24 hr 02/13/22 16:00 02/13/22 14:00 02/13/22 17:10 Temperature 97.7 F Pulse Rate 73 79 Respiratory Rate 20 Blood Pressure 150/66 H Pulse Oximetry 100 98 Oxygen Delivery Nasal Cannula Oxygen Flow Rate 3 02/13/22 16:40 02/13/22 16:50 02/13/22 18:00 Temperature 97.6 F Pulse Rate 76 79 73 Respiratory Rate 17 17 18 Blood Pressure 152/70 H Pulse Oximetry 100 Oxygen Delivery Oxygen Flow Rate 02/13/22 20:00 02/13/22 20:59 02/13/22 21:02 Temperature 98.3 F Pulse Rate 76 76 72 Respiratory Rate 12 16 Blood Pressure 154/74 H Pulse Oximetry 100 Oxygen Delivery Oxygen Flow Rate 02/13/22 21:28 02/13/22 20:00 02/13/22 23:53 Temperature Pulse Rate 78 Respiratory Rate Blood Pressure Pulse Oximetry 100 97 Oxygen Delivery Nasal Cannula BiPAP Oxygen Flow Rate 3 5 02/13/22 23:53 02/14/22 00:00 02/14/22 00:00 Temperature 99.1 F Pulse Rate 80 67 66 Respiratory Rate 22 H 20 Blood Pressure 143/61 H Pulse Oximetry 97 94 Oxygen Delivery Oxygen Flow Rate 02/14/22 04:08 02/14/22 04:00 02/14/22 04:28 Temperature Pulse Rate 72 74 70 Respiratory Rate 17 16 Blood Pressure Pulse Oximetry 97 Oxygen Delivery Nasal Cannula Oxygen Flow Rate 3 02/14/22 04:00 02/14/22 08:56 02/14/22 08:56 Temperature 97.7 F Pulse Rate 80 71 Respiratory Rate 16 22 H Blood Pressure 161/77 H Pulse Oximetry 94 98 Oxygen Delivery Nasal Cannula Oxygen Flow Rate 3 02/14/22 08:35
[2022-02-14 13:52] LABS: Alanine Aminotransferase 40 U/L (6-35); Albumin Level 2.9 g/dL (3.5-5.1); Alkaline Phosphatase 64 U/L (38-126); Aspartate Amino Transferase 22 U/L (14-36); Bilirubin,Total 0.3 mg/dL (0.2-1.3); Blood Urea Nitrogen 23 mg/dL (7-17); Calcium 7.8 mg/dL (8.4-10.2); Carbon Dioxide > 40 mmol/L (22-30); Chloride 88 mmol/L (98-107); Estimated CRCL calculation 64 ml/min; Estimated Glomerular Filt Rate > 60; Glucose 141 mg/dL (65-110); Potassium 3.6 mmol/L (3.4-5.0); Sodium 131 mmol/L (137-145)
[2022-02-14 16:16] LABS: Lactic Acid Reflex 0.8 mmol/L (0.7-2.0)
[2022-02-14 16:19] LABS: CRP 3.9 mg/dL (<1.0)
[2022-02-14 17:32] LABS: Glucose Point of Care 148 mg/dl (65-105)
--- NOTE | 2022-02-14 17:42 | PC.NURSE ---
Spoke with patient's to explain that patient is staying until morning to see GI specialist, discharge will be cancelled.
[2022-02-14 20:59] LABS: Glucose Point of Care 120 mg/dl (65-105)
[2022-02-15] VITALS (17 sets, daily range): BP systolic 126–153; BP diastolic 66–87; PULSE 71–86; RESP 16–21; TEMP 36.7–36.9; O2SAT 96–100
[2022-02-15] MEDS: HYDROcodone/acetaminophen (*CRX) 7.5-325 MG TABLET 1 TAB PO ×3 (03:02→13:15)
[2022-02-15] MEDS: IPRATROPIUM BR 0.02% INH SOLN 0.5 MG/2.5 ML VIAL INHALATION ×3 (04:15→19:57)
[2022-02-15] MEDS: ALBUTEROL SULFATE NEB 2.5 MG/3 ML INH INHALATION ×2 (04:20→19:57)
[2022-02-15] MEDS: METOCLOPRAMIDE HCL INJ 10 MG/2 ML VIAL 5 MG IV PUSH ×2 (05:03→12:00)
[2022-02-15] MEDS: CENTRAL LINE FLUSH 10 ML IV PUSH ×3 (05:04→19:54)
[2022-02-15 06:40] LABS: Basophils Percent Auto 0.2 % (0.2-1.2); Eosinophils Absolute Auto 0.4 K/mm3 (0-0.3); Eosinophils Percent Auto 3.2 % (0-4.4); Hematocrit 30.2 % (37.0-47.0); Immature Granulocyte Absolute 0.13 K/mm3 (0.00-0.031); Lymphocytes Absolute Auto 0.84 K/mm3 (0.9-3.2); Lymphocytes Percent Auto 6.3 % (18.3-44.2); Mean Corpuscular HGB Conc 29.8 g/dl (32-36); Mean Corpuscular Hemoglobin 25.2 pg (26-34); Mean Corpuscular Volume 84.6 fl (80-100); Mean Platelet Volume 9.7 fl (7.4-10.4); Monocytes Absolute Auto 1.9 K/mm3 (0.1-0.6); Monocytes Percent Auto 14.2 % (2.6-8.5); Neutrophils Percent Auto 75.1 % (45.5-73.1); Platelet Count Result 267 k/mm3 (150-375); Red Blood Count 3.57 M/mm3 (4.2-5.4); Red Cell Distribution Width 13.7 % (11.5-14.5); White Blood Count 13.3 K/mm3 (4.5-10.0)
[2022-02-15 07:01] LABS: Alanine Aminotransferase 38 U/L (6-35); Albumin Level 2.8 g/dL (3.5-5.1); Alkaline Phosphatase 63 U/L (38-126); Aspartate Amino Transferase 23 U/L (14-36); Bilirubin,Total 0.5 mg/dL (0.2-1.3); Blood Urea Nitrogen 19 mg/dL (7-17); Calcium 7.9 mg/dL (8.4-10.2); Carbon Dioxide > 40 mmol/L (22-30); Chloride 88 mmol/L (98-107); Estimated CRCL calculation 75 ml/min; Estimated Glomerular Filt Rate > 60; Glucose 94 mg/dL (65-110); Potassium 3.5 mmol/L (3.4-5.0); Sodium 133 mmol/L (137-145)
[2022-02-15 07:31] LABS: Procalcitonin 0.1 ng/mL
--- NOTE | 2022-02-15 07:48 | PCOTNOTE ---
Attempted to see patient this AM, patient reports toileting currently while lying in the bed. Therapist offered to assist patient with dixon care post toileting and work on UE exercises and bed mobility, to reduce caregiver burden. Patient continued to request therapist try later to see her. Will continue OT plan of care.
[2022-02-15] MEDS: SENNA/DOCUSATE SODIUM TABLET 1 TAB PO (08:19)
[2022-02-15] MEDS: amLODIPine BESYLATE 5 MG TABLET PO (08:20)
[2022-02-15] MEDS: ENOXAPARIN 40 MG/0.4 ML SYRINGE SUB-Q (08:23)
[2022-02-15] MEDS: METOPROLOL TARTRATE 12.5 MG TABLET PO ×2 (08:23→19:51)
[2022-02-15] MEDS: PANTOPRAZOLE SODIUM IV 40 MG VIAL IV PUSH (08:24)
[2022-02-15 08:29] LABS: Glucose Point of Care 93 mg/dl (65-105)
[2022-02-15] MEDS: PHENYLEPH/MINERAL OIL/PETROLAT OINTMENT 57 GM 1 APPLIC RECTAL (11:33)
[2022-02-15 12:28] LABS: Glucose Point of Care 142 mg/dl (65-105)
[2022-02-15] MEDS: FUROSEMIDE INJ 40 MG/4 ML VIAL IV PUSH (13:18)
--- NOTE | 2022-02-15 13:53 | PCOTNOTE ---
Attempted to see patient for second time this date for OT, patient again refused treatment. Patient reported that she hasn't slept and needs to rest. Patient encouraged to participate in OT to build strength, endurance, balance, as patient had not gotten out of bed or participated in any ADLs or activity this date. Patient also educated over importance of participating to reduce caregiver burden as patient requires assist for all ADLs. Patient continued to refuse OT treatment this date.
--- NOTE | 2022-02-15 16:55 | WPDGICN ---
Assessment and Plan Assessment and plan (1) Rectal pain: Code(s): K62.89 - Other specified diseases of anus and rectum Status: Acute Assessment and Plan: on examination she has a posterior anal fissure which is quite tender. It is important that we keep her stools soft. I will order topical anesthetic with benzocaine cream (2) Acute on chronic respiratory failure with hypoxia and hypercapnia: Code(s): J96.21 - Acute and chronic respiratory failure with hypoxia; J96.22 - Acute and chronic respiratory failure with hypercapnia Status: Acute Assessment and Plan: she was actually close to being discharged having recovered from her respiratory decompensation. (3) Ulcerative colitis: Code(s): K51.90 - Ulcerative colitis, unspecified, without complications Status: Acute Assessment and Plan: She states she had also colitis years ago and has been in remission. She was concerned that perhaps the rectal pain was an exacerbation of her colitis. I reassured her that it probably is not GI Consult Note Consult date/time: 02/15/22 16:55 Belinda Black is a 81 year old female colon mass to see regarding rectal pain. The patient was hospitalized with acute on chronic respiratory failure. She had become minimally responsive and required intubation and treatment in the intensive care unit. She is now close to going home but has developed rectal pain. She states that she knows that she did not have a bowel movement for few days because when she needed to have 1 she was forced to try to eliminate on a bedpan which she found him possible. When she does pass the stool now it is very painful. Otherwise she is comfortable. She has never had pain like this before. She recalls having had ulcerative colitis many years ago she is treated by a doctor and has been in remission for quite some time she does not see blood in her stools. A CT scan that was done recently shows some distention of the stomach but was otherwise unremarkable in terms of the gastrointestinal tract. She states that she generally eats well she denies nausea or vomiting. She usually takes stool softener because she is chronically on opioids for chronic pain syndrome. Reason for consult: Rectal pain Review of Systems Review of Systems: All systems reviewed & are unremarkable except as noted in HPI and below PMFSH Past Medical History Medical History Abdominal bruit Renal US negative for stenosis 08/2019. Adhesive capsulitis of right shoulder Aortic stenosis Mild on echocardiogram from October 2018. Borderline diabetic The patient stated she is not taking anything for her diabetes and she is not diabetic. Cataracts, bilateral Maturing cataracts bilaterally. Chronic diastolic (congestive) heart failure (Unknown) Echocardiogram October 2018 demonstrated normal left ventricular systolic function with EF of 65-70% grade 1 diastolic dysfunction mild aortic stenosis with a normal RVSP of 34. Chronic hyponatremia Chronic pain syndrome With chronic back, bilateral shoulder, and left knee pain. Chronic respiratory failure with hypoxia and hypercapnia COPD with emphysema Dependence on supplemental oxygen On 3 liters nasal cannula. Depression Diastolic dysfunction Essential (primary) hypertension (Unknown) Fractured coccyx Gastroesophageal reflux disease History of angina History of tobacco abuse Insomnia Liver mass 21 mm likely benign noted on imaging for 2017. Obstructive sleep apnea Noncompliant with Trilogy NPPV at home. Thyroid nodule On CT scan from July 2017. Ulcerative colitis Venous stasis dermatitis of both lower extremities Vitamin D deficiency Surgical History Surgical History History of arthroscopy of left knee (~2000) History of lumbar surgery (~2001) History of tonsillectomy History of total rig
[2022-02-15 17:47] LABS: Glucose Point of Care 137 mg/dl (65-105)
--- NOTE | 2022-02-15 17:50 | PM.IMPN ---
Progress Note: A&P Assessment and Plan (1) Acute on chronic respiratory failure with hypoxia and hypercapnia: Code(s): J96.21 - Acute and chronic respiratory failure with hypoxia; J96.22 - Acute and chronic respiratory failure with hypercapnia Status: Acute Assessment and Plan: Appreciate pulmonology consultation Discharge home soon (2) COPD exacerbation: Code(s): J44.1 - Chronic obstructive pulmonary disease with (acute) exacerbation Status: Chronic Assessment and Plan: stable on home machine per ABG this morning, f/u pulm outpatient (3) New onset type 2 diabetes mellitus: Code(s): E11.9 - Type 2 diabetes mellitus without complications Status: Acute Assessment and Plan: Continue Accu-Cheks, sliding scale insulin (4) Benign essential hypertension: Code(s): I10 - Essential (primary) hypertension Status: Acute Assessment and Plan: Controlled (5) Hyponatremia: Code(s): E87.1 - Hypo-osmolality and hyponatremia Status: Acute Assessment and Plan: Stable (6) Anemia: Code(s): D64.9 - Anemia, unspecified Status: Acute Assessment and Plan: Stable (7) Rectal pain: Code(s): K62.89 - Other specified diseases of anus and rectum Status: Acute Assessment and Plan: continued rectal pain despite bowel regimen, tucks pads, preparation H cream Appreciate GI consultation, continue current management (8) Leukocytosis: Code(s): D72.829 - Elevated white blood cell count, unspecified Status: Acute Assessment and Plan: unknown etiology check UA, repeat CXR tomorrow start levaquin for possible PNA vs UTI repeat CBC tomorrow Plan DVT prophylaxis with Lovenox GI prophylaxis with PPI Code status full code Subjective Date/time seen: 02/15/22 17:50 Interval history: No overnight events noted. No chest pain or shortness of breath. No nausea, vomiting or diarrhea. No fevers or chills. Patient states her rectal pain continues to worsen. Review of Systems Review of Systems: 12 point review of systems was assessed and was negative except as noted in the HPI Exam Narrative: General: No acute distress, alert and oriented per baseline HEENT: Atraumatic, normocephalic, mucous membranes moist CV: Regular rate and rhythm, S1, S2 Lungs: Clear to auscultation bilaterally, diminished throughout but no wheezes noted Abdomen: Soft, nontender, nondistended Extremities: Chronic venous stasis dermatitis noted B/L LE Objective Data Vital Signs Vital Signs: Vital Signs - 24 hr 02/14/22 20:26 02/14/22 20:43 02/14/22 20:47 Temperature Pulse Rate 87 77 Respiratory Rate 18 Blood Pressure Pulse Oximetry 97 Oxygen Delivery Nasal Cannula Oxygen Flow Rate 3 02/14/22 20:51 02/14/22 20:00 02/14/22 21:00 Temperature 97.6 F Pulse Rate 75 72 87 Respiratory Rate 18 20 Blood Pressure 147/66 H Pulse Oximetry 99 Oxygen Delivery Oxygen Flow Rate 02/14/22 23:53 02/15/22 00:00 02/15/22 01:32 Temperature 98.5 F Pulse Rate 68 71 77 Respiratory Rate 18 21 H Blood Pressure 140/89 Pulse Oximetry 99 96 Oxygen Delivery Oxygen Flow Rate 02/15/22 03:57 02/15/22 04:15 02/15/22 04:25 Temperature 98.4 F Pulse Rate 73 77 73 Respiratory Rate 20 18 20 Blood Pressure 145/72 H Pulse Oximetry 100 Oxygen Delivery Oxygen Flow Rate 02/15/22 04:00 02/15/22 08:23 02/15/22 08:00 Temperature 98.1 F Pulse Rate 73 82 80 Respiratory Rate 16 Blood Pressure 153/67 H Pulse Oximetry 99 Oxygen Delivery Oxygen Flow Rate 02/15/22 08:01 02/15/22 13:02 02/15/22 12:05 Temperature 98.2 F Pulse Rate 82 80 77 Respiratory Rate 18 Blood Pressure 148/87 H Pulse Oximetry 96 Oxygen Delivery Oxygen Flow Rate Intake/Output Intake/Output: Intake & Output 02/12/22 02/13/22 02/14/22 02/15/22 23:59 23:59 23:5
[2022-02-15 18:15] LABS: Add Urine Microscopic? NO; Appearance Urine Clear (Clear); Bilirubin Urine Negative (Negative); Blood Urine Negative (Negative); Color Urine Straw (Yellow); Glucose Urine UA Negative (Negative); Ketones Urine Negative (Negative); Leukocyte Esterase Ur Negative LEU/UL (NEGATIVE); Nitrate Urine Negative (Negative); Protein Urine Negative (Negative); Specific Grav Ur 1.008 (1.001-1.035); Urobilinogen Urine Negative mg/dL (<2.0)
[2022-02-15] MEDS: BUDESONIDE RESPULE NEB 0.5 MG/2 ML AMP INHALATION (19:57)
--- NOTE | 2022-02-15 20:10 | PM.PNPUL ---
Progress Note: A&P Assessment and Plan (1) COPD exacerbation: Code(s): J44.1 - Chronic obstructive pulmonary disease with (acute) exacerbation Status: Inactive Assessment and Plan: 81-year-old woman with a history of COPD (tobacco 47 PY quit [address] chest 08/19/2017 with severe apical predominant centrilobular emphysema), I have no PFTs, with chronic hypoxemic and hypercarbic respiratory failure on 3 L nasal cannula 22/11 and noncompliant with her home noninvasive ventilator )usage >=4 hours 5% on 01/21/2022) with the Astral 150 with a PSSV mode. Total usage days is ; of 20/60 days and usage greater than or equal to 4 hours is 3 of 60 or 5%. Average usage on days used is 2 hours and 33 minutes. Patient is on rate of 20, a tidal volume of 450, EPAP of 7, minimum pressure support 6, maximal pressure support 25, rise time 200, TI minimum 1.0, TI maximum 1.5, cycle 50% with 5 L bleed in, obstructive sleep apnea diagnosed 8 years ago intolerant to CPAP and intolerant to noninvasive ventilation, grade 1 diastolic dysfunction, morbid obesity, HTN, and depression. She was maintained on Symbicort 160-4.5 at 2 puffs b.i.d., Spiriva Handy haler 1 puff q.day, albuterol 2 puffs q.i.d. p.r.n. in October 2021 At baseline patient has a chair lift at home and the and the patient state that she can stand up and pivot to wheelchair.? She has been nonambulatory for over a year. On 11/23/2021 I took care the patient and she had a COPD exacerbation with chronic hypercarbic and hypoxemic respiratory failure. she completed treatment with steroids, antibiotics, and was discharged on Symbicort and Spiriva as well as noninvasive ventilation with: Astral rate of 20, tidal volume 450, EPAP 7, minimal pressure support 6, maximal pressure support 25, rise time 200 milliseconds, TI minimum 1.0, TI maximum 1.5 seconds, cycles 50% with 5 L bleed in. her blood gas at the end of the night on these settings was 7.42/57/129. 02/11 currently the patient presents was a COPD exacerbation and has completed 6 days of ceftriaxone and azithromycin, Solu-Medrol was started on 02/06. currently she is on 40 mg IV q.6 hours, I will decrease to 20 Q 6 today. continue albuterol 2.5 mg nebs q.4 hours, ipratropium nebulized 0.5 mg q.4 hours, budesonide 0.5 mg q.12 hours. patient was off the BiPAP intermittently throughout the day. Echocardiogram demonstrated LVEF 60-65%, diastolic dysfunction, moderate aortic stenosis with a valve area of 1.39 and a gradient of 12, mild mitral regurg, PASP 48. On 05/05/2018 patient's RVSP was 40. 02/12 Overall the patient states she is breathing close to her normal. She has a dry cough, no hemoptysis. She is on 3 L nasal cannula saturations 100%. Her white blood cell count is 11.9, her creatinine is 0.8. Her chest x-ray while she is on BiPAP shows hyperexpansion with no infiltrates or effusions. Patient has no wheezing and today is day 7 of medrol steroids. Will switch to prednisone 40 today. Will continue albuterol and ipratropium nebulizers q.4 hours and budesonide 0.5 mg Q 12 hours. 02/13 Today she tells me that her breathing is back at her baseline. She has a dry cough. She has no wheezing today. She has received 8 days of steroids and I will discontinue today. Will continue albuterol, ipratropium nebulizers Q 4 and budesonide 0.5 mg q.12 hours. 02/14 Patient states she is back at her baseline and has no wheezing. From a pulmonary perspective patient is ready for discharge home on these pulmonary medications Symbicort 160-4.5 at 2 puffs q.12 hours. Spiriva Handy haler 18 mcg q.day rescue albuterol inhaler 2 puffs q.4 hours p.r.n. shortness of breath or wheezing. Oxygen at rest and with ambulation per home O2 assessment which I have ordered When she naps or sleeps: Astral rate of 20, tidal volume 450, EPAP 7, minimal pressure support 6, maximal pressure support 25, rise time 200 milliseconds, TI minimum 1.0, TI maxi
--- NOTE | 2022-02-15 21:20 | PCRCNOTE ---
pt stating to RT that she believes she is going to heaven. RT checked VS and SP02 98%, HR 86. RN notified.
[2022-02-15 22:17] LABS: Glucose Point of Care 224 mg/dl (65-105)
[2022-02-16] VITALS (12 sets, daily range): BP systolic 111–145; BP diastolic 54–62; PULSE 72–91; RESP 20–21; TEMP 36.1–37.1; O2SAT 98–100
[2022-02-16] MEDS: IPRATROPIUM BR 0.02% INH SOLN 0.5 MG/2.5 ML VIAL INHALATION ×2 (00:04→03:59)
[2022-02-16] MEDS: ALBUTEROL SULFATE NEB 2.5 MG/3 ML INH INHALATION ×2 (00:04→03:59)
[2022-02-16] MEDS: CENTRAL LINE FLUSH 10 ML IV PUSH (05:27)
[2022-02-16] MEDS: HYDROcodone/acetaminophen (*CRX) 7.5-325 MG TABLET 1 TAB PO ×2 (05:41→09:53)
[2022-02-16 05:43] LABS: Basophils Percent Auto 0.1 % (0.2-1.2); Eosinophils Absolute Auto 0.2 K/mm3 (0-0.3); Eosinophils Percent Auto 1.7 % (0-4.4); Hematocrit 29.3 % (37.0-47.0); Hemoglobin 8.8 g/dL (12.0-15.0); Immature Granulocyte Absolute 0.14 K/mm3 (0.00-0.031); Lymphocytes Absolute Auto 0.68 K/mm3 (0.9-3.2); Lymphocytes Percent Auto 4.9 % (18.3-44.2); Mean Corpuscular Hemoglobin 26.1 pg (26-34); Mean Corpuscular Volume 86.9 fl (80-100); Mean Platelet Volume 9.5 fl (7.4-10.4); Monocytes Absolute Auto 1.9 K/mm3 (0.1-0.6); Neutrophils Absolute Auto 10.9 K/mm3 (1.3-6.7); Neutrophils Percent Auto 78.3 % (45.5-73.1); Platelet Count Result 265 k/mm3 (150-375); Red Blood Count 3.37 M/mm3 (4.2-5.4); Red Cell Distribution Width 13.8 % (11.5-14.5); White Blood Count 13.9 K/mm3 (4.5-10.0)
[2022-02-16 06:01] LABS: Alanine Aminotransferase 34 U/L (6-35); Albumin Level 2.7 g/dL (3.5-5.1); Alkaline Phosphatase 70 U/L (38-126); Aspartate Amino Transferase 20 U/L (14-36); Bilirubin,Total 0.5 mg/dL (0.2-1.3); Blood Urea Nitrogen 18 mg/dL (7-17); Calcium 7.5 mg/dL (8.4-10.2); Carbon Dioxide > 40 mmol/L (22-30); Chloride 83 mmol/L (98-107); Estimated CRCL calculation 75 ml/min; Estimated Glomerular Filt Rate > 60; Glucose 101 mg/dL (65-110); Potassium 3.4 mmol/L (3.4-5.0); Sodium 130 mmol/L (137-145)
[2022-02-16] MEDS: METOPROLOL TARTRATE 12.5 MG TABLET PO (08:13)
[2022-02-16] MEDS: ENOXAPARIN 40 MG/0.4 ML SYRINGE SUB-Q (08:13)
[2022-02-16] MEDS: amLODIPine BESYLATE 5 MG TABLET PO (08:15)
[2022-02-16] MEDS: PANTOPRAZOLE SODIUM IV 40 MG VIAL IV PUSH (08:15)
[2022-02-16 08:40] LABS: Glucose Point of Care 98 mg/dl (65-105)
--- NOTE | 2022-02-16 09:45 | PCNFU ---
Nutrition Follow-Up Complete: Inadequate Oral Intake as related to mechanical vent as evidenced by tube feedings. Goal: Meet estimated nutritional needs patient is progressing towards goal. We will continue current goal. Pt current nutrition is Minced and Moist, Level 5, Heart Healthy/DBCC Last recorded weight is 91.6 kg, up from 89.9 kg on admit. Bowel Motility:+Bm reported 02/16 Labs Reviewed:Cr 0.5,BUN 18, Na 130, Hct 29.3, Hgb 8.8 Meds Noted: Atrovent, Lovenox,Norvasc Skin: WNL Additional Notes:Patient current with Minced and Moist, Level 3 diet/Heart Healthy/DBCC. Patient eating breakfast this morning. Oatmeal, cottage cheese and peaches. Tolerating diet. She is able to advance diet as tolerated, nursing is aware. Monitoring: Will monitor every 7 days.
[2022-02-16 11:54] LABS: Glucose Point of Care 143 mg/dl (65-105)
== END 2022-02-16 12:30 | disposition home health service (06) | DRG 208 ==
LOC: ANHED 02-06 00:55 → ANHIMU 02-06 02:42 → ANHICU 02-07 20:00 → ANH2MED 02-12 14:56
PROVIDERS: Internal Medicine; Internal Medicine Pulmonary Disease; Physician Assistant; Admitting Provider Internal Medicine; Emergency Provider Family Medicine; PCP Internal Medicine; Visit Provider Student in an Organized Health Care Education/Training Program
DX: J96.21 Acute and chronic respiratory failure with hypoxia (principal); J69.0 Pneumonitis due to inhalation of food and vomit; E87.1 Hypo-osmolality and hyponatremia; I50.32 Chronic diastolic (congestive) heart failure; K51.90 Ulcerative colitis, unspecified, without complications; N39.0 Urinary tract infection, site not specified; J96.22 Acute and chronic respiratory failure with hypercapnia; J43.2 Centrilobular emphysema; I11.0 Hypertensive heart disease with heart failure; I35.0 Nonrheumatic aortic (valve) stenosis; I87.2 Venous insufficiency (chronic) (peripheral); D64.9 Anemia, unspecified; E11.9 Type 2 diabetes mellitus without complications; E04.1 Nontoxic single thyroid nodule; E66.01 Morbid (severe) obesity due to excess calories; E55.9 Vitamin D deficiency, unspecified; K21.9 Gastro-esophageal reflux disease without esophagitis; M75.01 Adhesive capsulitis of right shoulder; M25.562 Pain in left knee; M25.512 Pain in left shoulder; M54.9 Dorsalgia, unspecified; G47.00 Insomnia, unspecified; Z23 Encounter for immunization; G89.29 Other chronic pain; F32.A Depression, unspecified; Z96.651 Presence of right artificial knee joint; Z87.891 Personal history of nicotine dependence; Z99.81 Dependence on supplemental oxygen
CPT/HCPCS: 36415; 36556; 36600; 70450; 71045; 71046; 71250; 74018; 74019; 74176; 80048; 80053; 81001; 81003; 82271; 82375; 82805; 82948; 83050; 83605; 83735; 83880; 83986; 84100; 84145; 84484; 85025; 85610; 85730; 86140; 87040; 87070; 87086; 87088; 87205; 90471; 90694; 92610; 93005; 94002; 94003; 94618; 94640; 94762; 97110; 97161; 97165; 97530; 99291; A9270; C1751; C8929; C9113; G0008; J0131; J0330; J0456; J0696; J1650; J1815; J1940; J1956; J2060; J2250; J2270; J2405; J2765; J2920; J2930; J3010; J7030; J7040; J7512; Q9957

== ENCOUNTER 2022-02-17 11:47 | Observation (INO) | payer MEDICARE, SELFPAY ==
[2022-02-17] VITALS (31 sets, daily range): BP systolic 102–152; BP diastolic 52–88; PULSE 91–113; RESP 13–25; TEMP 36.5–36.8; O2SAT 97–100; BMI 37.0
--- NOTE | ~2022-02-17 | XR_ITS ---
EXAMINATION: XR chest 2V DATE: 02/17/2022 12:20 INDICATION: Shortness of breath TECHNIQUE: AP and lateral views of the chest are obtained. COMPARISON: 02/16/2022 FINDINGS: There are minimal airspace opacities of the left lung base. There is a small left pleural e ffusion. No pneumothorax is identified. The cardiomediastinal silhouette is normal. There is moderate thoracic spondylosis. There is advanced osteoarthritis of the glenohumeral joints. Partially imaged posterior lumbar fusion hardware is noted. IMPRESSION: 1. Small left pleural effusion. 2. Left basilar airspace opacity, likely atelectasis. Reviewed, dictated and finalized at location A.
--- NOTE | 2022-02-17 11:57 | ECG_ITS ---
Measurements Intervals [place] Rate: 96 P: 97 [place]: 152 QRS: 48 QRSD: 94 T: 76 QT: 340 QTc: 432 Interpretive Statements SINUS RHYTHM WITH OCCASIONAL VENTRICULAR PREMATURE COMPLEXES LOW QRS VOLTAGE IN PRECORDIAL LEADS [QRS DEFLECTION < 1.0 mV IN CHEST LEADS] MINIMAL ST DEPRESSION [0.025+ mV ST DEPRESSION] ABNORMAL ECG Electronically Signed On 02-17-2022 13:56:25 CDT by Ted Dee M.D.
--- NOTE | 2022-02-17 12:07 | ED.SOB ---
HPI - SOB/Dyspnea General Chief Complaint: Shortness of Breath/Dyspnea Stated Complaint: SOB Time Seen by Provider: 02/17/22 12:04 Source: patient Mode of arrival: ambulatory Limitations: no limitations History of Present Illness HPI Narrative: Patient is an 81-year-old female with a history of COPD, chronic hypoxemic hypercarbic respiratory failure on 3 L oxygen via nasal cannula, hypertension, type 2 diabetes, presenting to the emergency department for evaluation of weakness. Patient was admitted at this facility for 2 weeks, intubated for hypoxemic respiratory failure. Discharged home yesterday, but has been increasingly weak at home. Patient states her is 83-year-old and he is unable to help her with any activities of daily living. She states that she is not currently able to complete any activities independently. She states that it is not safe for her at home. She denies any focal weakness or numbness. She denies fever, chills, worsening cough or shortness of breath. Patient denies dysuria or hematuria. Patient states that she became weak while in the hospital and cannot be at home with her until she gains her strength back. Related Data Home Medications Medication Instructions Recorded Confirmed vit C 250 mg-vit E 90 mg-zinc 40 1 tablet PO BID 07/12/19 02/06/22 mg-copper 1 [id number] capsule (PreserVision AREDS-2) hydroxyzine HCl 25 mg tablet 25 mg PO HS PRN Anxiety 11/22/21 02/06/22 zolpidem 5 mg tablet 5 mg PO HS 11/22/21 02/06/22 tiotropium bromide 18 mcg capsule 1 cap inhalation DAILY 02/06/22 02/06/22 with inhalation device (Spiriva with HandiHaler) Allergies Allergy/AdvReac Type Severity Reaction Status Date / Time Sulfa (Sulfonamide Allergy Unknown THROAT, Verified 02/17/22 11:56 Antibiotics) TONGUE SWELLING,Unknown,THROAT, TONGUE SWELLING,Unkn hydralazine AdvReac Chest Pain Verified 02/17/22 11:56 Review of Systems Review of Systems: CONSTITUTIONAL: Denies fever, chills, or sweats. EYES: Denies visual changes, redness, or discharge. ENT: Denies rhinorrhea, congestion, sore throat, or otalgia. CARDIOVASCULAR: Denies chest pain, palpitations, or edema. RESPIRATORY: Reports mild cough and chronic shortness of breath GASTROINTESTINAL: Denies abdominal pain, nausea, vomiting, or diarrhea. GENITOURINARY: Denies dysuria or hematuria. SKIN: Denies rash or itching. MUSCULOSKELETAL: Denies back pain, joint pain, or myalgia. NEUROLOGIC: Denies headache, numbness, reports feeling diffusely weak PMFSH Past Medical History Medical History Abdominal bruit Renal US negative for stenosis 08/2019. Adhesive capsulitis of right shoulder Aortic stenosis Mild on echocardiogram from October 2018. Borderline diabetic The patient stated she is not taking anything for her diabetes and she is not diabetic. Cataracts, bilateral Maturing cataracts bilaterally. Chronic diastolic (congestive) heart failure (Unknown) Echocardiogram October 2018 demonstrated normal left ventricular systolic function with EF of 65-70% grade 1 diastolic dysfunction mild aortic stenosis with a normal RVSP of 34. Chronic hyponatremia Chronic pain syndrome With chronic back, bilateral shoulder, and left knee pain. Chronic respiratory failure with hypoxia and hypercapnia COPD with emphysema Dependence on supplemental oxygen On 3 liters nasal cannula. Depression Diastolic dysfunction Essential (primary) hypertension (Unknown) Fractured coccyx Gastroesophageal reflux disease History of angina History of tobacco abuse Insomnia Liver mass 21 mm likely benign noted on imaging for 2017. Obstructive sleep apnea Noncompliant with Trilogy NPPV at home. Thyroid nodule On CT scan from July 2017. Ulcerative colitis Venous stasis dermatitis of both lower extremities Vitamin D deficiency Surgical History Surgical History (Reviewed 02/15/22 @ 17:01
[2022-02-17 13:02] LABS: Basophils Percent Auto 0.1 % (0.2-1.2); Eosinophils Absolute Auto 0.5 K/mm3 (0-0.3); Eosinophils Percent Auto 3.5 % (0-4.4); Hematocrit 30.2 % (37.0-47.0); Immature Granulocyte Absolute 0.17 K/mm3 (0.00-0.031); Immature Granulocyte Percent A 1.3 % (0-0.5); Lymphocytes Absolute Auto 0.91 K/mm3 (0.9-3.2); Lymphocytes Percent Auto 6.7 % (18.3-44.2); Mean Corpuscular HGB Conc 29.8 g/dl (32-36); Mean Corpuscular Hemoglobin 26.1 pg (26-34); Mean Corpuscular Volume 87.5 fl (80-100); Mean Platelet Volume 9.9 fl (7.4-10.4); Monocytes Absolute Auto 1.8 K/mm3 (0.1-0.6); Monocytes Percent Auto 13.4 % (2.6-8.5); Neutrophils Absolute Auto 10.2 K/mm3 (1.3-6.7); Platelet Count Result 306 k/mm3 (150-375); Red Blood Count 3.45 M/mm3 (4.2-5.4); Red Cell Distribution Width 14.3 % (11.5-14.5); White Blood Count 13.6 K/mm3 (4.5-10.0)
[2022-02-17 13:10] LABS: Add Urine Microscopic? NO; Appearance Urine Clear (Clear); Bilirubin Urine Negative (Negative); Blood Urine Negative (Negative); Color Urine Yellow (Yellow); Glucose Urine UA Negative (Negative); Ketones Urine Negative (Negative); Leukocyte Esterase Ur Negative LEU/UL (Negative); Nitrate Urine Negative (Negative); Protein Urine Negative (Negative); Specific Grav Ur 1.016 (1.001-1.035); Urobilinogen Urine Negative mg/dL (<2.0)
[2022-02-17 13:12] LABS: Lactic Acid Reflex 0.8 mmol/L (0.7-2.0)
[2022-02-17 13:16] LABS: Alanine Aminotransferase 36 U/L (6-35); Albumin Level 3.3 g/dL (3.5-5.1); Alkaline Phosphatase 72 U/L (38-126); Anion Gap 5 mmol/L (8-16); Aspartate Amino Transferase 23 U/L (14-36); Bilirubin,Total 0.4 mg/dL (0.2-1.3); Blood Urea Nitrogen 23 mg/dL (7-17); Calcium 8.3 mg/dL (8.4-10.2); Carbon Dioxide 39 mmol/L (22-30); Chloride 85 mmol/L (98-107); Estimated CRCL calculation 74 ml/min; Estimated Glomerular Filt Rate > 60; Glucose 136 mg/dL (65-110); Sodium 129 mmol/L (137-145)
[2022-02-17 13:25] LABS: NT Pro B Type Natriuretic Pept 635 pg/mL (5-100); Troponin I < 0.012 ng/mL (0.000-0.034)
[2022-02-17 13:32] LABS: Platelet Estimate Adequate (Adequate)
[2022-02-17 13:34] LABS: Hypochromasia 1+ (NORMAL)
[2022-02-17 13:35] LABS: Anisocytosis 1+ (NORMAL); Schistocytes None Seen (NORMAL)
[2022-02-17 13:47] LABS: Influenza A QL RT-PCR Negative (Negative); Influenza B QL RT-PCR Negative (Negative); SARS-CoV-2 RNA PCR Negative
--- NOTE | 2022-02-17 14:32 | PC.NURSE ---
food tray ordered
--- NOTE | 2022-02-17 14:41 | PCCCNOTE ---
Called to ED for determine if placement possible. Pt DC from [facility] on 02/16/2022. Pt unable to care for self at home and needs rehab. I spoke with pt and she is willing to go to SNF. I called and discussed options regarding SNF facilities. He concerned about getting a good place. I will attempt [facility].
--- NOTE | 2022-02-17 16:22 | PCCCNOTE ---
PASSR done on Mrs Black. [facility] stated that they can take pt but unable to complete everything tonight like background check, etc. Call in AM to confirm bed is available. Mr. Black needs to be contacted. He will take her CPAP and small suitcase over to [facility] when all arrangements are finalized. Please use his cell phone to contact him. Mrs Ross has cell phone to contact him also.
--- NOTE | 2022-02-17 19:16 | PM.IMHP ---
H&P: HPI History of Present Illness Date/Time: 02/17/22 19:16 Chief Complaint: Weakness and shortness of breath. Narrative: This is a 81-year-old female patient who has a history of COPD, chronic hypoxic hypercapnia respiratory failure chronically on oxygen at 3 L per nasal cannula. The patient was discharged from this hospital yesterday and the patient was having difficulty getting on the Co today. She had home health nurse come today but the patient had the home health nurse and her get her on to the bedside commode with much difficulty. The patient nearly fell on the floor. The patient stated that she is too weak to be able to transfer. It is just her and her at home. She feels as if she needs to go to rehab to get stronger. The patient also stated that she was short of breath. The patient stated she did not feel safe at home anymore. The stated he could not take care of her by himself. Her white count was noted to be 13.6 which is about the same as yesterday. H&H is 9.0 in 30.2 which is slightly improved from yesterday. The patient has chronic hyponatremia. Her sodium today was 129 yesterday it had been 130. This appears to be her baseline. The patient has generalized edema. Her urine is negative for UTI. Influenza A/B and COVID her all negative. The patient was given 1 L of fluids in the emergency room. The patient stated that she had to urinate but did not want to get up because she felt so weak earlier and felt that it was unsafe for her to get up. I explained that I can not give her depend or she could use a bedpan. Patient stated she tried to use a bedpan at home and it did not work. A Funk catheter was ordered due to immobility. Patient is being admitted for observation status on the date of service of 02/17/2022. Review of Systems Review of Systems: See HPI All systems reviewed & are unremarkable except as noted in HPI and below Constitutional: Constitutional: Reports as per HPI and Reports no additional constitutional complaints Eyes: Eyes: Reports as per HPI and Reports no additional eye complaints ENT: Reports system reviewed and no additional complaints, except as documented and Reports Normal hearing present Cardiovascular: Cardiovascular: Reports no additional cardiovascular complaints Respiratory: Respiratory: Reports no additional respiratory complaints and Reports no additional respiratory complaints Gastrointestinal: Gastrointestinal: Reports as per HPI and Reports no additional gastrointestinal complaints Musculoskeletal: Musculoskeletal: Reports no additional musculoskeletal complaints Integumentary/Breasts: Skin/Breast: Reports system reviewed and no additional complaints, except as docu and Reports as per HPI Neurologic: Reports system reviewed and no additional complaints, except as documented, Reports as per HPI and Reports Normal hearing present Psychiatric: Psychiatric: Reports no additional psychiatric complaints and Reports as per HPI Endocrine: Endocrine: Reports no additional endocrine complaints Hematologic/Lymphatic: Hematologic/Lymphatic: Reports no additional hematologic/lymphatic complaints Allergic/Immunologic: Allergic/Immunologic: Reports no additional allergic/immunologic complaints [facility] Past Medical History Medical History Abdominal bruit Renal US negative for stenosis 08/2019. Adhesive capsulitis of right shoulder Aortic stenosis Mild on echocardiogram from October 2018. Borderline diabetic The patient stated she is not taking anything for her diabetes and she is not diabetic. Cataracts, bilateral Maturing cataracts bilaterally. Chronic diastolic (congestive) heart failure (Unknown) Echocardiogram October 2018 demonstrated normal left ventricular systolic function with EF of 65-70% grade 1 diastolic dysfunction mild aortic stenosis with a normal RVSP of 34. Chronic hyponatremia Chronic pain synd
[2022-02-17] MEDS: oxyCODONE/ACETAMINOPHEN (*CRX) 10-325 MG TABLET 1 TAB PO (23:27)
[2022-02-18] VITALS (7 sets, daily range): BP systolic 98–140; BP diastolic 50–63; PULSE 89–97; RESP 17–24; TEMP 36.6; O2SAT 98–100
--- NOTE | 2022-02-18 00:54 | ADMGEN ---
This patient, Belinda Black, was admitted to 3 [facility] Surg Room 324-01. Patient/family oriented to hospital policies and general routines including ID bracelet, bed and alarms, visiting hours, pain management, procedures, bathroom and other care routines, personal items, smoking policy, room service/diet, and visiting hours. Information on how to activate the Rapid Response Team has been discussed. Patient/Family are encouraged to report perceived risks to care and to ask questions if they do not understand what they are told or what they should do.
[2022-02-18 06:29] LABS: Basophils Percent Auto 0.2 % (0.2-1.2); Eosinophils Absolute Auto 0.5 K/mm3 (0-0.3); Eosinophils Percent Auto 5.4 % (0-4.4); Hematocrit 26.9 % (37.0-47.0); Immature Granulocyte Absolute 0.12 K/mm3 (0.00-0.031); Immature Granulocyte Percent A 1.2 % (0-0.5); Immature Platelet Fraction Pct 4.8 % (0.9-11.2); Lymphocytes Absolute Auto 1.06 K/mm3 (0.9-3.2); Lymphocytes Percent Auto 10.6 % (18.3-44.2); Mean Corpuscular HGB Conc 29.7 g/dl (32-36); Mean Corpuscular Volume 87.3 fl (80-100); Mean Platelet Volume 10.2 fl (7.4-10.4); Monocytes Absolute Auto 1.5 K/mm3 (0.1-0.6); Monocytes Percent Auto 15.2 % (2.6-8.5); Neutrophils Absolute Auto 6.7 K/mm3 (1.3-6.7); Neutrophils Percent Auto 67.4 % (45.5-73.1); Platelet Count Result 244 k/mm3 (150-375); Red Blood Count 3.08 M/mm3 (4.2-5.4); Red Cell Distribution Width 14.3 % (11.5-14.5)
[2022-02-18 06:48] LABS: Lactic Acid Reflex 0.5 mmol/L (0.7-2.0)
[2022-02-18 07:15] LABS: Alanine Aminotransferase 31 U/L (6-35); Albumin Level 2.9 g/dL (3.5-5.1); Alkaline Phosphatase 59 U/L (38-126); Anion Gap 6 mmol/L (8-16); Anisocytosis 1+ (NORMAL); Aspartate Amino Transferase 18 U/L (14-36); Bilirubin,Total 0.4 mg/dL (0.2-1.3); Blood Urea Nitrogen 20 mg/dL (7-17); Calcium 8.2 mg/dL (8.4-10.2); Carbon Dioxide 39 mmol/L (22-30); Chloride 87 mmol/L (98-107); Estimated CRCL calculation 72 ml/min; Estimated Glomerular Filt Rate > 60; Glucose 102 mg/dL (65-110); Hypochromasia 1+ (NORMAL); Magnesium 1.9 mg/dL (1.6-2.3); Platelet Estimate Adequate (Adequate); Potassium 3.8 mmol/L (3.4-5.0); Schistocytes None Seen (NORMAL); Sodium 132 mmol/L (137-145)
[2022-02-18] MEDS: FLUTICASONE/SALMETEROL 115-21 MCG INHALER 1 PUFF 2 PUFF INHALATION (09:23)
[2022-02-18] MEDS: ALBUTEROL SULFATE (*SP) AEROSOL 1 PUFF 2 PUFF INHALATION (09:24)
[2022-02-18] MEDS: UMECLIDINIUM BROMIDE 62.5 MCG ELLIPTA 1 PUFF INHALATION (09:34)
[2022-02-18] MEDS: OPTI-GEN TAB 1 TABLET PO (09:38)
[2022-02-18] MEDS: ENOXAPARIN 40 MG/0.4 ML SYRINGE SUB-Q (09:38)
[2022-02-18] MEDS: amLODIPine BESYLATE 5 MG TABLET PO (09:38)
[2022-02-18] MEDS: levoFLOXacin 750 MG TABLET PO (09:38)
[2022-02-18] MEDS: CELECOXIB 200 MG CAPSULE PO (09:38)
[2022-02-18] MEDS: oxyCODONE/ACETAMINOPHEN (*CRX) 10-325 MG TABLET 1 TAB PO (09:42)
--- NOTE | 2022-02-18 10:45 | PCOTNOTE ---
Addendum entered by ROSALINDA Mojica 02/18/22 10:51: Attempted to see patient two times this AM first attempt patient was with nursing, second attempt patient was sleeping soundly and was not disturbed. Original Note: Attempted to see patient this AM patient was sleeping soundly and was not disturbed.
--- NOTE | 2022-02-18 11:26 | PM.DS ---
DS: Admitting Diagnosis Discharge Date 02/18/2022 Admitting Diagnosis Generalized weakness DS: Discharge Diagnosis Discharge Diagnosis (1) Physical deconditioning: Code(s): R53.81 - Other malaise Status: Acute (2) Hyponatremia: Code(s): E87.1 - Hypo-osmolality and hyponatremia Status: Acute (3) Benign essential hypertension: Code(s): I10 - Essential (primary) hypertension Status: Acute (4) Depression: Code(s): F32.A - Depression, unspecified Status: Acute (5) Acute on chronic respiratory failure with hypoxia and hypercapnia: Code(s): J96.21 - Acute and chronic respiratory failure with hypoxia; J96.22 - Acute and chronic respiratory failure with hypercapnia Status: Acute (6) COPD (chronic obstructive pulmonary disease): Code(s): J44.9 - Chronic obstructive pulmonary disease, unspecified Status: Acute (7) Diastolic dysfunction: Code(s): I51.89 - Other ill-defined heart diseases Status: Acute (8) Obstructive sleep apnea: Code(s): G47.33 - Obstructive sleep apnea (adult) (pediatric) Status: Acute (9) Dermatitis: Code(s): L30.9 - Dermatitis, unspecified Status: Acute DS: Summary Hospital Course Reason for hospitalization: This is a 81-year-old female patient who has a history of COPD, chronic hypoxic hypercapnia respiratory failure chronically on oxygen at 3 L per nasal cannula.? The patient was discharged from this hospital yesterday and the patient was having difficulty getting on the Co today.? She had home health nurse come today but the patient had the home health nurse and her get her on to the bedside commode with much difficulty.? The patient nearly fell on the floor.? The patient stated that she is too weak to be able to transfer.? It is just her and her at home.? She feels as if she needs to go to rehab to get stronger.? The patient also stated that she was short of breath.? The patient stated she did not feel safe at home anymore.? The stated he could not take care of her by himself.? Her white count was noted to be 13.6 which is about the same as yesterday.? H&H is 9.0 in 30.2 which is slightly improved from yesterday.? The patient has chronic hyponatremia.? Her sodium today was 129 yesterday it had been 130.? This appears to be her baseline.? The patient has generalized edema.? Her urine is negative for UTI.? Influenza A/B and COVID her all negative.? The patient was given 1 L of fluids in the emergency room.? The patient stated that she had to urinate but did not want to get up because she felt so weak earlier and felt that it was unsafe for her to get up.? I explained that I can not give her depend or she could use a bedpan.? Patient stated she tried to use a bedpan at home and it did not work.? A Funk catheter was ordered due to immobility.? Patient is being admitted for observation status on the date of service of 02/17/2022. Hospital Course: # Physical deconditioning: -PT and OT evaluation -the patient had home health but stated that they need somebody there 22/11.? Her stated that he could not take care of her by himself. -chiropractic care has been consulted for placement. -the patient stated that she would be willing to go to rehab. # Hyponatremia: -the patient is chronically low. -I did not place her on any sodium tablets as she has generalized edema. -continue to monitor BMP daily -fluid restrictions. # Hypertension: -continue with Norvasc.? However the Norvasc may be causing her edema. # depression: -continue with current treatment # Acute on chronic respiratory failure with hypoxia and hypercapnia: -the patient chronically wears oxygen at 3 L per nasal cannula. along with NIV at home. needed to be intubated last admission # COPD (chronic obstructive pulmonary disease): -continue with Spiriva -continue with home oxygen at 3 L per nasal cannula. -continue with alb
[2022-02-18 12:20] LABS: EDCOVIDSCREEN Negative (Negative)
== END 2022-02-18 15:00 ==
LOC: ANHED 17:14 → ANH3MEDSUR 18:38
PROVIDERS: Emergency Medicine; Nurse Practitioner; Admitting Provider Chiropractor; Emergency Provider Emergency Medicine; PCP Internal Medicine; Visit Provider Internal Medicine
DX: R53.81 Other malaise (principal); E87.1 Hypo-osmolality and hyponatremia; J44.9 Chronic obstructive pulmonary disease, unspecified; J96.12 Chronic respiratory failure with hypercapnia; J96.11 Chronic respiratory failure with hypoxia; Z99.81 Dependence on supplemental oxygen; I50.32 Chronic diastolic (congestive) heart failure; I11.0 Hypertensive heart disease with heart failure; K21.9 Gastro-esophageal reflux disease without esophagitis; E55.9 Vitamin D deficiency, unspecified; Z96.651 Presence of right artificial knee joint; Z87.891 Personal history of nicotine dependence; F32.A Depression, unspecified; L30.9 Dermatitis, unspecified; R73.03 Prediabetes; Z20.822 Contact with and (suspected) exposure to COVID-19
CPT/HCPCS: 36415; 71046; 80053; 81003; 83605; 83735; 83880; 84443; 84484; 85025; 85055; 87040; 87147; 87181; 87186; 87426; 87502; 93005; 94002; 94640; 96372; 97162; 97165; 99285; A9270; C9803; G0378; J1650; U0003; U0005

== ENCOUNTER 2022-02-25 18:44 | Inpatient (IN) | payer MEDICARE, SELFPAY ==
[2022-02-25] VITALS (16 sets, daily range): BP systolic 119–153; BP diastolic 56–91; PULSE 83–102; RESP 15–28; TEMP 35.7–36.8; O2SAT 96–100; BMI 37.5
--- NOTE | ~2022-02-25 | XR_ITS ---
XR chest 2V DATE: 02/25/2022 19:11 INDICATION: Shortness of breath. Low oxygen saturation. History of COPD. TECHNIQUE: AP and lateral views COMPARISON: 02/17/2022 AP and lateral chest FINDINGS: Bilateral lower lung infiltrate and/atelectasis, left prominent than right, increased since 02/17/2022 on the left. Mild left pleural effusion is suggested. Heart size appears within normal range. There is aortic arch calcification. Diffuse osteopenia. Osteophytic change at both glenohumeral joints. Status post posterior surgical fusion of lumbar spine. IMPRESSION: Bilateral lower lung infiltrate and/atelectasis, much more prominent on the left, increas ed in severity since 02/17/2022 Probable small pleural effusion Reviewed, dictated and finalized at location A. IMPRESSION: Bilateral lower lung infiltrate and/atelectasis, much more prominen t on the left, increased in severity since 02/17/2022 Probable small pleural effusion
--- NOTE | ~2022-02-25 | XR_ITS ---
XR chest 1V portable 02/28/2022 05:45 Indication: Dyspnea. Pneumonia. Procedure: AP portable chest Comparison: Comparison to multiple prior studies sequentially, with oldest reviewed study dated 01/30. Findings: Heart size normal. Bibasilar airspace disease may represent atelectasis or pneumonia. Small left pleural effusion. No pneumothorax. No edema. Impression: 1: Bibasilar airspace disease may represent atelectasis or pneumonia. 2: Small left pleural effusion. Reviewed, dictated and finalized at location A. Impression: 1: Bibasilar airspace disease may represent atelectasis or pneumonia. 2: Small left pleural effusion.
--- NOTE | ~2022-02-25 | XR_ITS ---
EXAMINATION: XR chest 1V portable DATE: 03/03/2022 13:07 INDICATION: Pneumonia. Shortness of breath. TECHNIQUE: A single frontal view of the chest was obtained. COMPARISON: Chest single view 02/28/2022, chest CT 02/07/2022 FINDINGS: There are airspace opacities at left lung base. There is a small left pleural effusion. No pneumothorax. The heart size is normal. There are changes of posterior fusion procedure in lumbar spi ne. IMPRESSION: 1. Stable small left pleural effusion. 2. Worsened airspace opacities at left lung base, consistent with atelectasis versus pneumonia. Reviewed, dictated and finalized at location A. IMPRESSION: 1. Stable small left pleural effusion. 2. Worsened airspace opacities at left lung base, consistent with atelectasis v ersus pneumonia.
--- NOTE | ~2022-02-25 | CT_ITS ---
EXAMINATION: CTA chest PE protocol DATE: 03/03/2022 16:56 INDICATION: Worsening shortness of breath TECHNIQUE: Computed tomography angiography (CTA) of the chest was performed with 100 mL Omnipaque-350 intravenous contrast timed to evaluate the pulmonary arteries. Coronal maximum intensity projection 3D-reconstructions were created by the technologist. Automated exposure control and iterative reconst ruction technique were employed. Exam dose: 925.75 mGy-cm total exam DLP. COMPARISON: 03/03/2022 portable AP chest 02/28/2022 portable AP chest FINDINGS: There is diagnostic contrast enhancement of the pulmonary arteries and no evidence of pulmo nary embolism. No thoracic aortic aneurysm or dissection. There is thoracic aortic atherosclerosis. Normal heart siz e. No pericardial effusion. No hilar or mediastinal mass lesion or lymphadenopathy. Mild left pleural effusion. No right pleural effusion. Emphysematous changes of the lungs. There is dependent and basilar mild left lower lobe atelectasis. Lumbar spine fusion hardware. Severe osteoarthritic changes at the glenohumeral joints. Severe degenerative disc disease in the lower cervical spine prominent degenerative spurring of the t horacic spine. Thoracolumbar dextroscoliosis. IMPRESSION: No evidence of pulmonary embolism Mild dependent and basilar left lower lobe atelectasis Mild left pleural effusion Reviewed, dictated and finalized at Location A. Reviewed, dictated and finalized at location A.
--- NOTE | ~2022-02-25 | US_ITS ---
EXAMINATION: US venous doppler UE RT DATE: 02/26/2022 11:45 INDICATION: Right upper extremity edema TECHNIQUE: Brown scale images with and without compression and Doppler images of the right upper extre mity veins were obtained. COMPARISON: None. FINDINGS: The right internal jugular vein, subclavian vein, axillary vein, brachial veins, basilic vein, cephal ic vein, radial vein, and ulnar vein are patent. IMPRESSION: 1. Patent right upper extremity veins. No evidence of deep venous thrombosis. Reviewed, dictated and finalized at location B.
--- NOTE | 2022-02-25 18:55 | ECG_ITS ---
Measurements Intervals [place] Rate: 96 P: 67 MO: 169 QRS: 30 QRSD: 82 T: 61 QT: 299 QTc: 379 Interpretive Statements SINUS RHYTHM BASELINE ARTIFACT LOW-VOLTAGE QRS IN PRECORDIAL LEADS BORDERLINE ECG COMPARED TO ECG 02/17/2022 11:55:38 NO SIGNIFICANT CHANGES Electronically Signed On 02-26-2022 16:36:01 CDT by Cameron Alexander M.D.
[2022-02-25 19:13] LABS: Basophils Percent Auto 0.6 % (0.2-1.2); Eosinophils Absolute Auto 0.3 K/mm3 (0-0.3); Eosinophils Percent Auto 5.5 % (0-4.4); Hematocrit 30.1 % (37.0-47.0); Hemoglobin 8.9 g/dL (12.0-15.0); Immature Granulocyte Absolute 0.03 K/mm3 (0.00-0.031); Immature Granulocyte Percent A 0.5 % (0-0.5); Lymphocytes Absolute Auto 0.98 K/mm3 (0.9-3.2); Lymphocytes Percent Auto 15.8 % (18.3-44.2); Mean Corpuscular HGB Conc 29.6 g/dl (32-36); Mean Corpuscular Hemoglobin 26.1 pg (26-34); Mean Corpuscular Volume 88.3 fl (80-100); Mean Platelet Volume 9.3 fl (7.4-10.4); Monocytes Absolute Auto 0.6 K/mm3 (0.1-0.6); Monocytes Percent Auto 9.7 % (2.6-8.5); Neutrophils Absolute Auto 4.2 K/mm3 (1.3-6.7); Neutrophils Percent Auto 67.9 % (45.5-73.1); Platelet Count Result 185 k/mm3 (150-375); Red Blood Count 3.41 M/mm3 (4.2-5.4); White Blood Count 6.2 K/mm3 (4.5-10.0)
[2022-02-25 19:22] LABS: Alveolar/Arterial O2 Gradient 96.2 mmHg; Base Excess ABG 7.3 mEq/l (+/-2.0); Fractional Inspired Oxygen 36 %; HCO3 ABG 34.4 mEq/l (22.0-26.0); Oxygen Content ABG 13.7 %vol (16.0-22.0); Oxygen Saturation ABG 95.9 % (95.0-100.0); Oxyhemoglobin 94.9 % THb (90.0-100.0); PO2 ABG 86.7 mmHg (80.0-100.0); PO2 FiO2 Ratio Arterial Blood 2.41 %; Total Hemoglobin 10.2 g/dL (12.0-18.0); pH ABG 7.351 (7.350-7.450)
[2022-02-25 19:24] LABS: Device NASAL CANNULA; Modified Allen's Test Pass; PCO2 ABG 63.6 mmHg (35.0-45.0); Site Drawn LEFT RADIAL
[2022-02-25 19:28] LABS: Alanine Aminotransferase 18 U/L (6-35); Albumin Level 3.3 g/dL (3.5-5.1); Alkaline Phosphatase 56 U/L (38-126); Anion Gap 8 mmol/L (8-16); Aspartate Amino Transferase 23 U/L (14-36); Bilirubin,Total 0.3 mg/dL (0.2-1.3); Blood Urea Nitrogen 18 mg/dL (7-17); Calcium 8.7 mg/dL (8.4-10.2); Carbon Dioxide 39 mmol/L (22-30); Chloride 91 mmol/L (98-107); Estimated Glomerular Filt Rate > 60; Glucose 148 mg/dL (65-110); Potassium 4.3 mmol/L (3.4-5.0); Sodium 138 mmol/L (137-145)
[2022-02-25 19:39] LABS: Hypochromasia 2+ (NORMAL); Platelet Estimate Adequate (Adequate); Schistocytes None Seen (NORMAL)
[2022-02-25 19:55] LABS: Magnesium 1.7 mg/dL (1.6-2.3)
[2022-02-25 20:08] LABS: NT Pro B Type Natriuretic Pept 545 pg/mL (5-100); Troponin I 0.015 ng/mL (0.000-0.034)
[2022-02-25 20:16] LABS: Prothrombin Time 12.6 Seconds (11.1-14.7)
--- NOTE | 2022-02-25 20:36 | ED.GENADULT ---
HPI - General Adult General Chief complaint: Shortness of Breath/Dyspnea Stated complaint: sob Time Seen by Provider: 02/25/22 18:55 History of Present Illness HPI narrative: Patient is a 81-year-old female who presents the emergency department with chief complaint of shortness of breath. Patient has prior history of pneumonia and hypercapnic respiratory failure was admitted to the hospital fairly recently and discharged to an assisted living facility. The patient has had increasing shortness of breath and has been feeling weaker than normal. Patient also had increased oxygen demand at the facility. Related Data Home Medications Medication Instructions Recorded Confirmed vit C 250 mg-vit E 90 mg-zinc 40 1 tablet PO BID 07/12/19 02/17/22 mg-copper 1 [id number]-newlez capsule (PreserVision AREDS-2) hydroxyzine HCl 25 mg tablet 25 mg PO HS PRN Anxiety 11/22/21 02/17/22 zolpidem 5 mg tablet 5 mg PO HS 11/22/21 02/17/22 tiotropium bromide 18 mcg capsule 1 cap inhalation DAILY 02/06/22 02/17/22 with inhalation device (Spiriva with HandiHaler) Allergies Allergy/AdvReac Type Severity Reaction Status Date / Time Sulfa (Sulfonamide Allergy Unknown THROAT, Verified 02/18/22 01:00 Antibiotics) TONGUE SWELLING,Unknown,THROAT, TONGUE SWELLING,Unkn hydralazine AdvReac Chest Pain Verified 02/18/22 01:00 Review of Systems Review of Systems: A 10 system review of systems was completed on the patient and is negative except for what is stated in the HPI. Nursing and ancillary documentation was reviewed. [facility] Past Medical History Medical History Abdominal bruit Renal US negative for stenosis 08/2019. Adhesive capsulitis of right shoulder Aortic stenosis Mild on echocardiogram from October 2018. Borderline diabetic The patient stated she is not taking anything for her diabetes and she is not diabetic. Cataracts, bilateral Maturing cataracts bilaterally. Chronic diastolic (congestive) heart failure (Unknown) Echocardiogram October 2018 demonstrated normal left ventricular systolic function with EF of 65-70% grade 1 diastolic dysfunction mild aortic stenosis with a normal RVSP of 34. Chronic hyponatremia Chronic pain syndrome With chronic back, bilateral shoulder, and left knee pain. Chronic respiratory failure with hypoxia and hypercapnia COPD with emphysema Dependence on supplemental oxygen On 3 liters nasal cannula. Depression Diastolic dysfunction Essential (primary) hypertension (Unknown) Fractured coccyx Gastroesophageal reflux disease History of angina History of tobacco abuse Insomnia Liver mass 21 mm likely benign noted on imaging for 2018. Obstructive sleep apnea Noncompliant with Trilogy NPPV at home. Thyroid nodule On CT scan from July 2017. Ulcerative colitis Venous stasis dermatitis of both lower extremities Vitamin D deficiency Surgical History Surgical History History of arthroscopy of left knee (~2000) History of lumbar surgery (~2001) History of tonsillectomy History of total right knee replacement (~01/2012) History of ventral hernia repair With abdominoplasty. Family History Family History Mother Diabetes mellitus Father COPD (chronic obstructive pulmonary disease) Social History Social History Social History: The patient lives at home with her of 60+ years. 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 She has a 50 pack year smoking history and quit in 2007. No alcohol or illicit substance use. She mostly uses a wheelchair now. Surrogate medical decision maker: Yamil Black, spouse. Code status: Full code. She would not however want to be on long-term life support. Smoking packs per day: 1 Smoking
[2022-02-25 20:51] LABS: Add Urine Microscopic? YES; Appearance Urine Clear (Clear); Bilirubin Urine Negative (Negative); Blood Urine Negative (Negative); Color Urine Yellow (Yellow); Glucose Urine UA Negative (Negative); Ketones Urine Negative (Negative); Leukocyte Esterase Ur Negative LEU/UL (Negative); Mucus Urine Rare /lpf; Nitrate Urine Negative (Negative); Protein Urine Negative (Negative); RBC Urine 0-2 /hpf (0-2); Specific Grav Ur 1.015 (1.001-1.035); Urobilinogen Urine Negative mg/dL (<2.0); WBC Urine 0-3 /hpf
[2022-02-25 21:06] LABS: Lactic Acid Reflex 0.7 mmol/L (0.7-2.0)
[2022-02-25 21:23] LABS: Influenza A QL RT-PCR Negative (Negative); Influenza B QL RT-PCR Negative (Negative); SARS-CoV-2 RNA PCR Negative
[2022-02-25 21:30] LABS: Procalcitonin 0.1 ng/mL
--- NOTE | 2022-02-25 22:40 | ADMGEN ---
This patient, Belinda Black, was admitted to 3 [facility] Surg Room 304-02 @2230. Patient/family oriented to hospital policies and general routines including ID bracelet, bed and alarms, visiting hours, pain management, procedures, bathroom and other care routines, personal items, smoking policy, room service/diet, and visiting hours. Information on how to activate the Rapid Response Team has been discussed. Patient/Family are encouraged to report perceived risks to care and to ask questions if they do not understand what they are told or what they should do.
[2022-02-25 23:08] LABS: Troponin I 0.012 ng/mL (0.000-0.034)
[2022-02-26] VITALS (16 sets, daily range): BP systolic 123–146; BP diastolic 47–61; PULSE 82–90; RESP 18–24; TEMP 35.9–36.8; O2SAT 95–97
--- NOTE | 2022-02-26 00:57 | PM.IMHP ---
H&P: HPI History of Present Illness Date/Time: 02/26/22 00:57 Chief Complaint: weakness Narrative: This is an 81-year-old female with past medical history significant for chronic respiratory failure with hypoxia and hypercapnia, dependence on supplemental oxygen, diastolic dysfunction, essential primary hypertension, gastroesophageal reflux disease, history of tobacco abuse, obstructive sleep apnea, chronic pain syndrome, COPD/emphysema, chronic bilateral lower extremity venous stasis, obesity. Patient is currently in prison she was just recently discharged from [facility] after she was treated for deconditioning, generalized weakness discharge to nursing. patient usually uses a wheelchair but is able to transfer however according to was at bedside she has not been able to do the transfer as of lately. However she returns today due to worsening generalized weakness and bilateral lower extremity pain, preliminary workup was significant for chest x-ray was reported as: IMPRESSION: Bilateral lower lung infiltrate and/atelectasis, much more prominent on the left, increased in severity since 02/17/2022 Probable small pleural effusion? patient is been admitted for further evaluation management and treatment. Review of Systems Review of Systems: Patient is complaining of bilateral lower extremity pain Constitutional: Constitutional: Reports weakness Eyes: Eyes: Denies change in vision ENT: Denies dysphagia, Denies vertigo, Denies dizziness and Denies odynophagia Cardiovascular: Cardiovascular: Reports leg edema Respiratory: Respiratory: Reports chest congestion and Reports cough Gastrointestinal: Gastrointestinal: Denies abdominal pain, Denies diarrhea, Denies nausea and Denies vomiting Genitourinary: Genitourinary: Denies dysuria Musculoskeletal: Musculoskeletal: Reports other ( bilateral lower extremity pain) Integumentary/Breasts: Skin/Breast: Reports erythema, Reports skin swelling and Reports other ( bilateral lower extremity) Neurologic: Denies vertigo, Denies dizziness and Reports weakness Psychiatric: Psychiatric: Reports no additional psychiatric complaints and Reports as per HPI Endocrine: Endocrine: Denies cold intolerance, Denies flushing, Denies heat intolerance, Denies polyphagia, Denies polydipsia and Denies palpitations Hematologic/Lymphatic: Hematologic/Lymphatic: Reports no additional hematologic/lymphatic complaints and Reports as per HPI Allergic/Immunologic: Allergic/Immunologic: Reports no additional allergic/immunologic complaints and Reports as per HPI PMFSH Past Medical History Medical History Abdominal bruit Renal US negative for stenosis 08/2019. Adhesive capsulitis of right shoulder Aortic stenosis Mild on echocardiogram from October 2018. Borderline diabetic The patient stated she is not taking anything for her diabetes and she is not diabetic. Cataracts, bilateral Maturing cataracts bilaterally. Chronic diastolic (congestive) heart failure (Unknown) Echocardiogram October 2018 demonstrated normal left ventricular systolic function with EF of 65-70% grade 1 diastolic dysfunction mild aortic stenosis with a normal RVSP of 34. Chronic hyponatremia Chronic pain syndrome With chronic back, bilateral shoulder, and left knee pain. Chronic respiratory failure with hypoxia and hypercapnia COPD with emphysema Dependence on supplemental oxygen On 3 liters nasal cannula. Depression Diastolic dysfunction Essential (primary) hypertension (Unknown) Fractured coccyx Gastroesophageal reflux disease History of angina History of tobacco abuse Insomnia Liver mass 21 mm likely benign noted on imaging for 2017. Obstructive sleep apnea Noncompliant with Trilogy NPPV at home. Thyroid nodule On CT scan from July 2017. Ulcerative colitis Venous stasis dermatitis of both lower extremities Vitamin D deficiency Surgical Hi
[2022-02-26] MEDS: ALBUTEROL SULFATE NEB 2.5 MG/3 ML INH 5 MG INHALATION ×4 (02:21→21:15)
[2022-02-26] MEDS: IPRATROPIUM BR 0.02% INH SOLN 0.5 MG/2.5 ML VIAL INHALATION ×4 (02:21→21:15)
[2022-02-26] MEDS: LIDOCAINE HCL 2% JELLY 5 ML TUBE 1 APPLIC MUCOUS MEM (03:21)
[2022-02-26] MEDS: oxyCODONE/ACETAMINOPHEN (*CRX) 10-325 MG TABLET 1 TAB PO ×2 (06:56→14:12)
--- NOTE | 2022-02-26 07:28 | PM.IMPN ---
Progress Note: A&P Assessment and Plan (1) HCAP (healthcare-associated pneumonia): Code(s): J18.9 - Pneumonia, unspecified organism Status: Acute Assessment and Plan: Patient presented to SOB, PETERSON and weakness. Chest x-ray with bilateral lower lobe opacities and trace small left effusion. check sputum culture, gram stain, legionella, and pneumococcal antigen pending. Patient was hospitalized for >5 days in the past 30 days- Start Cefepime 2 grams Q12 hours and Vancomycin IV pharmacy dosed for MRSA and pseudomonas coverage. Check MRSA nasal swab. Trend CBC and temperature curve. (2) COPD (chronic obstructive pulmonary disease): Code(s): J44.9 - Chronic obstructive pulmonary disease, unspecified Status: Acute Assessment and Plan: Acute exacerbation of chronic disease. Poor air exchange in all bhatt. Start solu-medrol 40 mg IV Q8 hours Duonebs Q4 hours scheduled Continue antibiotics as above. May be more COPD exacerbation than pneumonia, however, given above complaints with continue empiric broad-spectrum antibiotics for now. (3) Physical deconditioning: Code(s): R53.81 - Other malaise Status: Acute Assessment and Plan: patient unable to transfer to and from wheelchair PT/OT consulted. TSH 1.4 Vit D 25-OH 50 check B12 and folate Venous doppler UE negative for DVT. (4) GERD (gastroesophageal reflux disease): Qualifiers: Esophagitis presence: without esophagitis Qualified Code(s): K21.9 - Gastro-esophageal reflux disease without esophagitis Code(s): K21.9 - Gastro-esophageal reflux disease without esophagitis Status: Chronic Assessment and Plan: PPI as needed (5) Benign essential hypertension: Code(s): I10 - Essential (primary) hypertension Status: Chronic Assessment and Plan: continue home meds continue to monitor (6) Chronic anemia: Code(s): D64.9 - Anemia, unspecified Status: Acute Assessment and Plan: Chronic, stable. baseline H/H 9/30% H/H 8.9/30 on 02/26/22 check iron panel, B12 and folate. (7) Dermatitis: Code(s): L30.9 - Dermatitis, unspecified Status: Acute Assessment and Plan: BLE red and warm to touch. Tender. Patient reports this is chronic. Add emollient. consider steroid cream if not improved. Not convinced this is cellulitis, however, will continue to monitor. Patient is on broad-spectrum antibiotics. (8) New onset type 2 diabetes mellitus: Code(s): E11.9 - Type 2 diabetes mellitus without complications Status: Acute Assessment and Plan: Noted in prior records patient has new diagnosis of diabetes. check A1c Will start accu-checks AC/HS with low-dose sliding scale insulin with meals while initiating systemic steroids. May dc in 24 hours if not elevated. (9) Chronic diastolic (congestive) heart failure: Onset Date: Unknown Code(s): I50.32 - Chronic diastolic (congestive) heart failure Status: Chronic Assessment and Plan: chronic, not in acute exacerbation. Appears euvolemic. BNP 545 Monitor I/O and daily weights. (10) Obstructive sleep apnea: Onset Date: Unknown Code(s): G47.33 - Obstructive sleep apnea (adult) (pediatric) Status: Chronic Assessment and Plan: NIV overnight. Encouraged use. (11) Acute on chronic respiratory failure with hypoxia and hypercapnia: Code(s): J96.21 - Acute and chronic respiratory failure with hypoxia; J96.22 - Acute and chronic respiratory failure with hypercapnia Status: Acute Assessment and Plan: continue supplemental oxygen by nasal cannula- patient requiring up to 6 liters in the ED Wean as tolerated to home O2 settings. 02/25 ABG- chronic respiratory acidosis. pH 7.35, pCO2 63, pO86.7, HCO3 34.4 continue AVAPS at previous settings- tidal volume 450, IPAP 6-25, EPAP 7, rate 20, fiO2 40% Plan
[2022-02-26] MEDS: UMECLIDINIUM BROMIDE 62.5 MCG ELLIPTA 1 PUFF INHALATION (08:24)
[2022-02-26] MEDS: FLUTICASONE/SALMETEROL 115-21 MCG INHALER 1 PUFF 2 PUFF INHALATION (08:24)
[2022-02-26] MEDS: polyethylene glycoL 3350 17 GM POWD.PACK PO (10:20)
[2022-02-26] MEDS: ENOXAPARIN 40 MG/0.4 ML SYRINGE SUB-Q (10:20)
[2022-02-26] MEDS: OPTI-GEN TAB 1 TABLET PO ×2 (10:21→18:04)
[2022-02-26] MEDS: CELECOXIB 200 MG CAPSULE PO (10:21)
[2022-02-26] MEDS: amLODIPine BESYLATE 5 MG TABLET PO (10:22)
[2022-02-26 11:45] LABS: Iron 43 ug/dL (37-170)
[2022-02-26 11:55] LABS: Percent Iron Saturation 12 % (20-50)
[2022-02-26 12:32] LABS: Vitamin D 25 Hydroxy 50.3 ng/mL
[2022-02-26] MEDS: methylPREDNISolone SOD SUCC 40 MG VIAL IV PUSH ×2 (12:52→23:09)
[2022-02-26 16:55] LABS: Glucose Point of Care 192 mg/dl (65-105)
[2022-02-26] MEDS: DOCUSATE SODIUM 100 MG CAPSULE PO (18:04)
[2022-02-26] MEDS: hydrOXYzine HCL 25 MG TABLET PO (23:43)
[2022-02-27] VITALS (18 sets, daily range): BP systolic 141–175; BP diastolic 55–85; PULSE 83–109; RESP 18–24; TEMP 36.4–36.9; O2SAT 95–100
--- NOTE | 2022-02-27 00:25 | PC.NURSE ---
Patient has not had IV access since 209902/26/22. Multiple attempts by multiple RNs have not been successful. Gisella Lima is currently attempting. Patient had 2200 and 2300 Iv antibiotics that we have been unable to administer.
[2022-02-27] MEDS: ALBUTEROL SULFATE NEB 2.5 MG/3 ML INH 5 MG INHALATION ×6 (00:50→20:26)
[2022-02-27] MEDS: IPRATROPIUM BR 0.02% INH SOLN 0.5 MG/2.5 ML VIAL INHALATION ×6 (00:50→20:26)
--- NOTE | 2022-02-27 01:36 | PC.NURSE ---
Received critical lab result 02/27 @ 0045 for gram positive cocci clusters for a preliminary blood culture in the aerobic bottle only. Attempted to contact hospitalist by josh, hospitalist number, olamide number and have recieved no answer. I have been trying to contact provider for the past hour and have gotten no response. Patient is currently on vanc and cefepime.
[2022-02-27] MEDS: oxyCODONE/ACETAMINOPHEN (*CRX) 10-325 MG TABLET 1 TAB PO ×2 (04:36→19:53)
[2022-02-27] MEDS: SODIUM CHLOR 3% 15 ML NEB (RESPIRATORY THERAPY) 6 ML INHALATION (05:15)
[2022-02-27] MEDS: methylPREDNISolone SOD SUCC 40 MG VIAL IV PUSH ×3 (05:37→21:28)
--- NOTE | 2022-02-27 05:49 | PCRCNOTE ---
Patient did not produce sputum sample. Sample cup left bedside.
[2022-02-27 07:32] LABS: Glucose Point of Care 181 mg/dl (65-105)
--- NOTE | 2022-02-27 07:35 | PCOTNOTE ---
Attempted OT evaluation, patient declined at this time reports to tired , will follow and attempt at later time.
[2022-02-27] MEDS: OPTI-GEN TAB 1 TABLET PO ×2 (10:01→16:16)
[2022-02-27] MEDS: polyethylene glycoL 3350 17 GM POWD.PACK PO (10:01)
[2022-02-27] MEDS: DOCUSATE SODIUM 100 MG CAPSULE PO (10:02)
[2022-02-27] MEDS: PANTOPRAZOLE 40 MG TABLET PO (10:02)
[2022-02-27] MEDS: amLODIPine BESYLATE 5 MG TABLET PO (10:02)
[2022-02-27] MEDS: CELECOXIB 200 MG CAPSULE PO (10:02)
[2022-02-27] MEDS: ENOXAPARIN 40 MG/0.4 ML SYRINGE SUB-Q (10:02)
[2022-02-27 10:04] LABS: Basophils Percent Auto 0.2 % (0.2-1.2); Immature Granulocyte Absolute 0.02 K/mm3 (0.00-0.031); Immature Granulocyte Percent A 0.5 % (0-0.5); Lymphocytes Absolute Auto 0.24 K/mm3 (0.9-3.2); Lymphocytes Percent Auto 5.5 % (18.3-44.2); Mean Corpuscular Hemoglobin 25.8 pg (26-34); Mean Platelet Volume 9.2 fl (7.4-10.4); Monocytes Percent Auto 0.5 % (2.6-8.5); Neutrophils Absolute Auto 4.1 K/mm3 (1.3-6.7); Neutrophils Percent Auto 93.3 % (45.5-73.1); Platelet Count Result 231 k/mm3 (150-375); Red Blood Count 3.49 M/mm3 (4.2-5.4); Red Cell Distribution Width 14.9 % (11.5-14.5); White Blood Count 4.4 K/mm3 (4.5-10.0)
[2022-02-27 10:16] LABS: Anion Gap 7 mmol/L (8-16); Blood Urea Nitrogen 17 mg/dL (7-17); Calcium 8.6 mg/dL (8.4-10.2); Carbon Dioxide 36 mmol/L (22-30); Chloride 90 mmol/L (98-107); Estimated CRCL calculation 63 ml/min; Estimated Glomerular Filt Rate > 60; Glucose 201 mg/dL (65-110); Potassium 4.3 mmol/L (3.4-5.0); Sodium 133 mmol/L (137-145)
[2022-02-27 10:18] LABS: Hemoglobin A1C 5.8 % (<5.7)
[2022-02-27 10:40] LABS: Anisocytosis 1+ (NORMAL); Ovalocytes 1+ (NORMAL); Platelet Estimate Adequate (Adequate); Schistocytes None Seen (NORMAL)
[2022-02-27 10:58] LABS: Vancomycin Trough 20.3 ug/mL (10.0-20.0)
[2022-02-27 11:26] LABS: Glucose Point of Care 196 mg/dl (65-105)
--- NOTE | 2022-02-27 14:38 | P.PNIM_ITS ---
Progress Note: A&P Assessment and Plan (1) HCAP (healthcare-associated pneumonia): Code(s): J18.9 - Pneumonia, unspecified organism Status: Acute Assessment and Plan: Patient presented to SOB, PETERSON and weakness. * Chest x-ray with bilateral lower lobe opacities and trace small left effusion. * RT to induce sputum culture and gram stain * legionella and pneumococcal antigen pending. * Patient was hospitalized for >5 days in the past 30 days- Start Cefepime 2 grams Q12 hours and Vancomycin IV pharmacy dosed for MRSA and pseudomonas coverage. * Check MRSA nasal swab- pending. * Influenza A/B and SARS-COV2 negative * Trend CBC and temperature curve. * Repeat chest x-ray in am 02/28/22 (2) COPD (chronic obstructive pulmonary disease): Code(s): J44.9 - Chronic obstructive pulmonary disease, unspecified Status: Acute Assessment and Plan: Acute exacerbation of chronic disease. Poor air exchange in all bhatt. * 02/27/22 Day 2 solu-medrol 40 mg IV Q8 hours * Continue Duonebs Q4 hours scheduled * Continue antibiotics as above. * May be more COPD exacerbation than pneumonia, however, given above complaints with continue empiric broad-spectrum antibiotics for now. (3) Physical deconditioning: Code(s): R53.81 - Other malaise Status: Acute Assessment and Plan: patient unable to transfer to and from wheelchair * PT/OT consulted. * TSH 1.4 * Vit D 25-OH 50 * B12 and folate within normal limits * Venous doppler UE negative for DVT. * Patient strongly encouraged to participate in therapy for return to prior level of functioning. Per patient's she was able to stand and transfer with minimal assistance from bed to wheelchair. But has been requiring max assistance. (4) GERD (gastroesophageal reflux disease): Qualifiers: Esophagitis presence: without esophagitis Qualified Code(s): K21.9 - Gastro-esophageal reflux disease without esophagitis Code(s): K21.9 - Gastro-esophageal reflux disease without esophagitis Status: Chronic Assessment and Plan: PPI as needed (5) Benign essential hypertension: Code(s): I10 - Essential (primary) hypertension Status: Chronic Assessment and Plan: Chronic, stable. Continue amlodipine at home dose. Stable. (6) Chronic anemia: Code(s): D64.9 - Anemia, unspecified Status: Acute Assessment and Plan: Chronic, stable. baseline H/H 9/30% * H/H 8.9/30 on 02/26/22 * iron panel- low normal serum iron, high normal TIBC, sat 12%- will start iron supplement * B12 and folate within normal limits (7) Dermatitis: Code(s): L30.9 - Dermatitis, unspecified Status: Acute Assessment and Plan: BLE red and warm to touch. Tender. Patient reports this is chronic. * Continue emollient after bathing. * Improving. Patient is on antibiotics that would cover cellulitis. Continue to monitor. (8) New onset type 2 diabetes mellitus: Code(s): E11.9 - Type 2 diabetes mellitus without complications Status: Acute Assessment and Plan: Noted in prior records patient has new diagnosis of diabetes. Patient is not currently on antidiabetic medications. * A1c 5.8% * accu-checks AC/HS with low-dose sliding scale insulin with meals while initiating systemic steroids. (9) Chronic diastolic (congestive) heart failure: Onset Date: Unknown Code(s): I50.32 - Chronic diastolic (congestive) heart failure Status: Chronic
--- NOTE | 2022-02-27 14:38 | PM.IMPN ---
Progress Note: A&P Assessment and Plan (1) HCAP (healthcare-associated pneumonia): Code(s): J18.9 - Pneumonia, unspecified organism Status: Acute Assessment and Plan: Patient presented to SOB, PETERSON and weakness. Chest x-ray with bilateral lower lobe opacities and trace small left effusion. RT to induce sputum culture and gram stain legionella and pneumococcal antigen pending. Patient was hospitalized for >5 days in the past 30 days- Start Cefepime 2 grams Q12 hours and Vancomycin IV pharmacy dosed for MRSA and pseudomonas coverage. Check MRSA nasal swab- pending. Influenza A/B and SARS-COV2 negative Trend CBC and temperature curve. Repeat chest x-ray in am 02/28/22 (2) COPD (chronic obstructive pulmonary disease): Code(s): J44.9 - Chronic obstructive pulmonary disease, unspecified Status: Acute Assessment and Plan: Acute exacerbation of chronic disease. Poor air exchange in all bhatt. 02/27/22 Day 2 solu-medrol 40 mg IV Q8 hours Continue Duonebs Q4 hours scheduled Continue antibiotics as above. May be more COPD exacerbation than pneumonia, however, given above complaints with continue empiric broad-spectrum antibiotics for now. (3) Physical deconditioning: Code(s): R53.81 - Other malaise Status: Acute Assessment and Plan: patient unable to transfer to and from wheelchair PT/OT consulted. TSH 1.4 Vit D 25-OH 50 B12 and folate within normal limits Venous doppler UE negative for DVT. Patient strongly encouraged to participate in therapy for return to prior level of functioning. Per patient's she was able to stand and transfer with minimal assistance from bed to wheelchair. But has been requiring max assistance. (4) GERD (gastroesophageal reflux disease): Qualifiers: Esophagitis presence: without esophagitis Qualified Code(s): K21.9 - Gastro-esophageal reflux disease without esophagitis Code(s): K21.9 - Gastro-esophageal reflux disease without esophagitis Status: Chronic Assessment and Plan: PPI as needed (5) Benign essential hypertension: Code(s): I10 - Essential (primary) hypertension Status: Chronic Assessment and Plan: Chronic, stable. Continue amlodipine at home dose. Stable. (6) Chronic anemia: Code(s): D64.9 - Anemia, unspecified Status: Acute Assessment and Plan: Chronic, stable. baseline H/H 9/30% H/H 8.930 on 02/26/22 iron panel- low normal serum iron, high normal TIBC, sat 12%- will start iron supplement B12 and folate within normal limits (7) Dermatitis: Code(s): L30.9 - Dermatitis, unspecified Status: Acute Assessment and Plan: BLE red and warm to touch. Tender. Patient reports this is chronic. Continue emollient after bathing. Improving. Patient is on antibiotics that would cover cellulitis. Continue to monitor. (8) New onset type 2 diabetes mellitus: Code(s): E11.9 - Type 2 diabetes mellitus without complications Status: Acute Assessment and Plan: Noted in prior records patient has new diagnosis of diabetes. Patient is not currently on antidiabetic medications. A1c 5.8% accu-checks AC/HS with low-dose sliding scale insulin with meals while initiating systemic steroids. (9) Chronic diastolic (congestive) heart failure: Onset Date: Unknown Code(s): I50.32 - Chronic diastolic (congestive) heart failure Status: Chronic Assessment and Plan: chronic, not in acute exacerbation. Appears euvolemic. BNP 545 but may be falsely low due to obesity Monitor I/O and daily weights- net -1080 mL, weight +3 kg in 24 hours? chest x-ray with probable small pleural effusions. Give lasix 40 mg IV x1 with 20 mEQ KCl PO x1 today 02/27/22 BERTIN morrow in am to monitor response to lasix. Add incentive spirometry (10) Obstructive sleep apnea: Onset Date: Unknown
[2022-02-27] MEDS: POTASSIUM CHLORIDE 20 MEQ TABLET PO (16:16)
[2022-02-27] MEDS: FUROSEMIDE INJ 40 MG/4 ML VIAL IV PUSH (16:16)
[2022-02-27 16:46] LABS: Glucose Point of Care 233 mg/dl (65-105)
[2022-02-27] MEDS: INSULIN ASPART (*BKC) 100 UNITS/ML SUB-Q (17:53)
[2022-02-27] MEDS: SENNA/DOCUSATE SODIUM TABLET 2 TAB PO (21:28)
[2022-02-27] MEDS: ACETAMINOPHEN 325 MG TABLET 650 MG PO (21:29)
[2022-02-28] VITALS (16 sets, daily range): BP systolic 141–158; BP diastolic 52–79; PULSE 80–106; RESP 16–22; TEMP 36.1–36.9; O2SAT 97–100
[2022-02-28] MEDS: IPRATROPIUM BR 0.02% INH SOLN 0.5 MG/2.5 ML VIAL INHALATION ×6 (04:58→21:01)
[2022-02-28] MEDS: ALBUTEROL SULFATE NEB 2.5 MG/3 ML INH 5 MG INHALATION ×6 (04:58→21:01)
--- NOTE | 2022-02-28 05:15 | PCRCNOTE ---
Unable to collect sputum induction. Patient states she can't get anything up at this moment.
[2022-02-28] MEDS: hydrOXYzine HCL 25 MG TABLET PO (06:09)
[2022-02-28 06:36] LABS: Basophils Percent Auto 0.1 % (0.2-1.2); Hemoglobin 8.2 g/dL (12.0-15.0); Immature Granulocyte Absolute 0.05 K/mm3 (0.00-0.031); Immature Granulocyte Percent A 0.7 % (0-0.5); Lymphocytes Percent Auto 2.8 % (18.3-44.2); Mean Corpuscular HGB Conc 30.4 g/dl (32-36); Mean Corpuscular Hemoglobin 25.5 pg (26-34); Mean Corpuscular Volume 83.9 fl (80-100); Mean Platelet Volume 9.9 fl (7.4-10.4); Monocytes Absolute Auto 0.3 K/mm3 (0.1-0.6); Monocytes Percent Auto 4.6 % (2.6-8.5); Neutrophils Absolute Auto 6.6 K/mm3 (1.3-6.7); Neutrophils Percent Auto 91.8 % (45.5-73.1); Platelet Count Result 295 k/mm3 (150-375); Red Blood Count 3.22 M/mm3 (4.2-5.4); White Blood Count 7.2 K/mm3 (4.5-10.0)
[2022-02-28 06:38] LABS: Anion Gap 8 mmol/L (8-16); Blood Urea Nitrogen 26 mg/dL (7-17); Calcium 8.5 mg/dL (8.4-10.2); Carbon Dioxide 35 mmol/L (22-30); Chloride 87 mmol/L (98-107); Estimated CRCL calculation 54 ml/min; Estimated Glomerular Filt Rate > 60; Glucose 228 mg/dL (65-110); Potassium 4.5 mmol/L (3.4-5.0); Sodium 130 mmol/L (137-145)
[2022-02-28 07:21] LABS: Anisocytosis 1+ (NORMAL); Ovalocytes 1+ (NORMAL); Platelet Estimate Adequate (Adequate)
[2022-02-28 07:22] LABS: Schistocytes None Seen (NORMAL)
[2022-02-28 07:34] LABS: Glucose Point of Care 153 mg/dl (65-105)
[2022-02-28] MEDS: oxyCODONE/ACETAMINOPHEN (*CRX) 10-325 MG TABLET 1 TAB PO (07:59)
[2022-02-28] MEDS: methylPREDNISolone SOD SUCC 40 MG VIAL IV PUSH ×3 (08:00→21:02)
[2022-02-28] MEDS: ENOXAPARIN 40 MG/0.4 ML SYRINGE SUB-Q (09:10)
[2022-02-28] MEDS: CELECOXIB 200 MG CAPSULE PO (09:11)
[2022-02-28] MEDS: amLODIPine BESYLATE 5 MG TABLET PO (09:11)
[2022-02-28] MEDS: OPTI-GEN TAB 1 TABLET PO ×2 (09:11→17:45)
[2022-02-28] MEDS: PANTOPRAZOLE 40 MG TABLET PO (09:11)
[2022-02-28 11:25] LABS: Glucose Point of Care 170 mg/dl (65-105)
--- NOTE | 2022-02-28 13:12 | P.PNIM_ITS ---
Progress Note: A&P Assessment and Plan (1) HCAP (healthcare-associated pneumonia): Code(s): J18.9 - Pneumonia, unspecified organism Status: Acute Assessment and Plan: Patient presented to SOB, PETERSON and weakness. * Chest x-ray with bilateral lower lobe opacities and trace small left effusion. * RT to induce sputum culture and gram stain * legionella and pneumococcal antigen pending. * Patient was hospitalized for >5 days in the past 30 days- Start Cefepime 2 grams Q12 hours and Vancomycin IV pharmacy dosed for MRSA and pseudomonas coverage. * Check MRSA nasal swab- pending. * Influenza A/B and SARS-COV2 negative * Trend CBC and temperature curve. (2) COPD (chronic obstructive pulmonary disease): Code(s): J44.9 - Chronic obstructive pulmonary disease, unspecified Status: Acute Assessment and Plan: Acute exacerbation of chronic disease. Poor air exchange in all bhatt. * 02/27/22 Day 2 solu-medrol 40 mg IV Q8 hours * Continue Duonebs Q4 hours scheduled * Continue antibiotics as above. * May be more COPD exacerbation than pneumonia, however, given above complaints with continue empiric broad-spectrum antibiotics for now. (3) Physical deconditioning: Code(s): R53.81 - Other malaise Status: Acute Assessment and Plan: patient unable to transfer to and from wheelchair * PT/OT consulted. * TSH 1.4 * Vit D 25-OH 50 * B12 and folate within normal limits * Venous doppler UE negative for DVT. * Patient strongly encouraged to participate in therapy for return to prior level of functioning. Per patient's she was able to stand and transfer with minimal assistance from bed to wheelchair. But has been requiring max assistance (4) GERD (gastroesophageal reflux disease): Qualifiers: Esophagitis presence: without esophagitis Qualified Code(s): K21.9 - Gastro-esophageal reflux disease without esophagitis Code(s): K21.9 - Gastro-esophageal reflux disease without esophagitis Status: Chronic Assessment and Plan: ?PPI as needed (5) Benign essential hypertension: Code(s): I10 - Essential (primary) hypertension Status: Chronic Assessment and Plan: Chronic, stable. Continue amlodipine at home dose. ?Stable. (6) Rectal pain: Code(s): K62.89 - Other specified diseases of anus and rectum Status: Acute Assessment and Plan: Continue hemorrhoid cream (7) Chronic anemia: Code(s): D64.9 - Anemia, unspecified Status: Acute Assessment and Plan: Chronic, stable. baseline H/H 9/30% * H/H 8.930 on 02/26/22 * iron panel- low normal serum iron, high normal TIBC, sat 12%- will start iron supplement * B12 and folate within normal limits (8) Dermatitis: Code(s): L30.9 - Dermatitis, unspecified Status: Acute Assessment and Plan: BLE red and warm to touch. Tender. Patient reports this is chronic. * Continue emollient after bathing. * Improving. Patient is on antibiotics that would cover cellulitis. Continue to monitor. (9) New onset type 2 diabetes mellitus: Code(s): E11.9 - Type 2 diabetes mellitus without complications Status: Acute Assessment and Plan: Noted in prior records patient has new diagnosis of diabetes. Patient is not currently on antidiabetic medications. * A1c 5.8% * accu-checks AC/HS with low-dose sliding scale insulin with meals while initiating systemic steroids. (10) Chronic diastolic (congestive) heart failure: Onset Date: Unknown Code(s): I50.32 - Chroni
--- NOTE | 2022-02-28 13:12 | PM.IMPN ---
Progress Note: A&P Assessment and Plan (1) HCAP (healthcare-associated pneumonia): Code(s): J18.9 - Pneumonia, unspecified organism Status: Acute Assessment and Plan: Patient presented to SOB, PETERSON and weakness. Chest x-ray with bilateral lower lobe opacities and trace small left effusion. RT to induce sputum culture and gram stain legionella and pneumococcal antigen pending. Patient was hospitalized for >5 days in the past 30 days- Start Cefepime 2 grams Q12 hours and Vancomycin IV pharmacy dosed for MRSA and pseudomonas coverage. Check MRSA nasal swab- pending. Influenza A/B and SARS-COV2 negative Trend CBC and temperature curve. (2) COPD (chronic obstructive pulmonary disease): Code(s): J44.9 - Chronic obstructive pulmonary disease, unspecified Status: Acute Assessment and Plan: Acute exacerbation of chronic disease. Poor air exchange in all bhatt. 02/27/22 Day 2 solu-medrol 40 mg IV Q8 hours Continue Duonebs Q4 hours scheduled Continue antibiotics as above. May be more COPD exacerbation than pneumonia, however, given above complaints with continue empiric broad-spectrum antibiotics for now. (3) Physical deconditioning: Code(s): R53.81 - Other malaise Status: Acute Assessment and Plan: patient unable to transfer to and from wheelchair PT/OT consulted. TSH 1.4 Vit D 25-OH 50 B12 and folate within normal limits Venous doppler UE negative for DVT. Patient strongly encouraged to participate in therapy for return to prior level of functioning. Per patient's she was able to stand and transfer with minimal assistance from bed to wheelchair. But has been requiring max assistance (4) GERD (gastroesophageal reflux disease): Qualifiers: Esophagitis presence: without esophagitis Qualified Code(s): K21.9 - Gastro-esophageal reflux disease without esophagitis Code(s): K21.9 - Gastro-esophageal reflux disease without esophagitis Status: Chronic Assessment and Plan: ?PPI as needed (5) Benign essential hypertension: Code(s): I10 - Essential (primary) hypertension Status: Chronic Assessment and Plan: Chronic, stable. Continue amlodipine at home dose. ?Stable. (6) Rectal pain: Code(s): K62.89 - Other specified diseases of anus and rectum Status: Acute Assessment and Plan: Continue hemorrhoid cream (7) Chronic anemia: Code(s): D64.9 - Anemia, unspecified Status: Acute Assessment and Plan: Chronic, stable. baseline H/H 9/30% H/H 8.9/30 on 02/26/22 iron panel- low normal serum iron, high normal TIBC, sat 12%- will start iron supplement B12 and folate within normal limits (8) Dermatitis: Code(s): L30.9 - Dermatitis, unspecified Status: Acute Assessment and Plan: BLE red and warm to touch. Tender. Patient reports this is chronic. Continue emollient after bathing. Improving. Patient is on antibiotics that would cover cellulitis. Continue to monitor. (9) New onset type 2 diabetes mellitus: Code(s): E11.9 - Type 2 diabetes mellitus without complications Status: Acute Assessment and Plan: Noted in prior records patient has new diagnosis of diabetes. Patient is not currently on antidiabetic medications. A1c 5.8% accu-checks AC/HS with low-dose sliding scale insulin with meals while initiating systemic steroids. (10) Chronic diastolic (congestive) heart failure: Onset Date: Unknown Code(s): I50.32 - Chronic diastolic (congestive) heart failure Status: Chronic Assessment and Plan: chronic, not in acute exacerbation. Appears euvolemic. BNP 545 but may be falsely low due to obesity Monitor I/O and daily weights- net -1080 mL, weight +3 kg in 24 hours? chest x-ray with probable small pleural effusions. Give lasix 40 mg IV x1 with 20 mEQ KCl PO x1 today 02/27/22 BERTIN morrow in am to monitor response to lasix. Add
[2022-02-28 16:24] LABS: Glucose Point of Care 219 mg/dl (65-105)
[2022-02-28] MEDS: INSULIN ASPART (*BKC) 100 UNITS/ML SUB-Q (17:45)
[2022-02-28 20:43] LABS: Glucose Point of Care 172 mg/dl (65-105)
[2022-02-28] MEDS: ACETAMINOPHEN 325 MG TABLET 650 MG PO (21:02)
[2022-02-28] MEDS: DICLOFENAC SODIUM 1% 100 GM GEL (*BKC) 1 APPLIC TOPICAL (21:03)
[2022-02-28] MEDS: SENNA/DOCUSATE SODIUM TABLET 2 TAB PO (21:17)
[2022-03-01] VITALS (18 sets, daily range): BP systolic 148–171; BP diastolic 61–78; PULSE 84–107; RESP 18–22; TEMP 36.4–36.6; O2SAT 92–100
[2022-03-01] MEDS: IPRATROPIUM BR 0.02% INH SOLN 0.5 MG/2.5 ML VIAL INHALATION ×6 (00:12→20:49)
[2022-03-01] MEDS: ALBUTEROL SULFATE NEB 2.5 MG/3 ML INH 5 MG INHALATION ×6 (00:12→20:49)
--- NOTE | 2022-03-01 05:06 | PCRCNOTE ---
Unable to collect sputum at this time. Patient states she can't give me one at this time.
[2022-03-01] MEDS: methylPREDNISolone SOD SUCC 40 MG VIAL IV PUSH ×3 (06:45→21:55)
[2022-03-01 07:47] LABS: Hematocrit 27.6 % (37.0-47.0); Hemoglobin 8.3 g/dL (12.0-15.0); Immature Granulocyte Absolute 0.05 K/mm3 (0.00-0.031); Immature Granulocyte Percent A 0.6 % (0-0.5); Lymphocytes Absolute Auto 0.28 K/mm3 (0.9-3.2); Lymphocytes Percent Auto 3.2 % (18.3-44.2); Mean Corpuscular HGB Conc 30.1 g/dl (32-36); Mean Corpuscular Hemoglobin 26.5 pg (26-34); Mean Corpuscular Volume 88.2 fl (80-100); Mean Platelet Volume 9.5 fl (7.4-10.4); Monocytes Absolute Auto 0.8 K/mm3 (0.1-0.6); Monocytes Percent Auto 8.5 % (2.6-8.5); Neutrophils Absolute Auto 7.7 K/mm3 (1.3-6.7); Neutrophils Percent Auto 87.7 % (45.5-73.1); Platelet Count Result 350 k/mm3 (150-375); Red Blood Count 3.13 M/mm3 (4.2-5.4); Red Cell Distribution Width 15.6 % (11.5-14.5); White Blood Count 8.8 K/mm3 (4.5-10.0)
[2022-03-01 07:54] LABS: Glucose Point of Care 157 mg/dl (65-105)
[2022-03-01 07:57] LABS: Alanine Aminotransferase 22 U/L (6-35); Albumin Level 3.5 g/dL (3.5-5.1); Alkaline Phosphatase 57 U/L (38-126); Aspartate Amino Transferase 21 U/L (14-36); Bilirubin,Total 0.3 mg/dL (0.2-1.3); Blood Urea Nitrogen 26 mg/dL (7-17); Carbon Dioxide > 40 mmol/L (22-30); Chloride 90 mmol/L (98-107); Estimated CRCL calculation 64 ml/min; Estimated Glomerular Filt Rate > 60; Glucose 147 mg/dL (65-110); Magnesium 2.1 mg/dL (1.6-2.3); Potassium 4.3 mmol/L (3.4-5.0); Sodium 134 mmol/L (137-145)
[2022-03-01] MEDS: DICLOFENAC SODIUM 1% 100 GM GEL (*BKC) 1 APPLIC TOPICAL ×4 (08:31→21:56)
[2022-03-01] MEDS: OPTI-GEN TAB 1 TABLET PO ×2 (08:31→17:45)
[2022-03-01] MEDS: polyethylene glycoL 3350 17 GM POWD.PACK PO (08:32)
[2022-03-01] MEDS: ENOXAPARIN 40 MG/0.4 ML SYRINGE SUB-Q (08:32)
[2022-03-01] MEDS: PANTOPRAZOLE 40 MG TABLET PO (08:32)
[2022-03-01] MEDS: CELECOXIB 200 MG CAPSULE PO (08:32)
[2022-03-01] MEDS: SODIUM CHLOR 3% 15 ML NEB (RESPIRATORY THERAPY) 6 ML INHALATION (08:33)
[2022-03-01] MEDS: BENZOCAINE 20% HEMORRHOIDAL OINTMENT 28 GM 1 APPLIC TOPICAL (08:33)
[2022-03-01] MEDS: amLODIPine BESYLATE 5 MG TABLET PO (08:33)
[2022-03-01] MEDS: oxyCODONE/ACETAMINOPHEN (*CRX) 10-325 MG TABLET 1 TAB PO ×2 (08:52→15:07)
--- NOTE | 2022-03-01 11:22 | P.PNIM_ITS ---
Progress Note: A&P Assessment and Plan (1) HCAP (healthcare-associated pneumonia): Code(s): J18.9 - Pneumonia, unspecified organism Status: Acute Assessment and Plan: Patient presented to SOB, PETERSON and weakness. * Chest x-ray with bilateral lower lobe opacities and trace small left effusion. * RT to induce sputum culture and gram stain * legionella and pneumococcal antigen pending. * Patient was hospitalized for >5 days in the past 30 days- Start Cefepime 2 grams Q12 hours and Vancomycin IV pharmacy dosed for MRSA and pseudomonas coverage. * Check MRSA nasal swab- pending. * Influenza A/B and SARS-COV2 negative * Trend CBC and temperature curve. * 03/01/22: Continue IV antibiotics, Monitor respiratory status and attempt to wean oxygen. (2) COPD (chronic obstructive pulmonary disease): Code(s): J44.9 - Chronic obstructive pulmonary disease, unspecified Status: Acute Assessment and Plan: Acute exacerbation of chronic disease. Poor air exchange in all bhatt. * 02/27/22 Day 2 solu-medrol 40 mg IV Q8 hours * Continue Duonebs Q4 hours scheduled * Continue antibiotics as above. * May be more COPD exacerbation than pneumonia, however, given above complaints with continue empiric broad-spectrum antibiotics for now. * 03/01/22: Pt intolerant of being able to wean off of oxygen secondary to anxiety. She panics any time her oxygen has adjusted. Her sats however remaining within acceptable levels. (3) Physical deconditioning: Code(s): R53.81 - Other malaise Status: Acute Assessment and Plan: patient unable to transfer to and from wheelchair * PT/OT consulted. * TSH 1.4 * Vit D 25-OH 50 * B12 and folate within normal limits * Venous doppler UE negative for DVT. * Patient strongly encouraged to participate in therapy for return to prior level of functioning. Per patient's she was able to stand and transfer with minimal assistance from bed to wheelchair. But has been requiring max assistance * 03/01/22: Patient again is intolerant of attempting to participate with physical therapy secondary to her feelings of dyspnea. Once again she is encouraged to attempt. (4) GERD (gastroesophageal reflux disease): Qualifiers: Esophagitis presence: without esophagitis Qualified Code(s): K21.9 - Gastro-esophageal reflux disease without esophagitis Code(s): K21.9 - Gastro-esophageal reflux disease without esophagitis Status: Chronic Assessment and Plan: * ?03/01/22: Continue Protonix (5) Benign essential hypertension: Code(s): I10 - Essential (primary) hypertension Status: Chronic Assessment and Plan: * 03/01/22: stable continue home medications. * Continue to monitor vital signs. (6) Rectal pain: Code(s): K62.89 - Other specified diseases of anus and rectum Status: Acute Assessment and Plan: * 03/01/22: P.r.n. rectal cream (7) Chronic anemia: Code(s): D64.9 - Anemia, unspecified Status: Acute Assessment and Plan: Chronic, stable. baseline H/H 9/30% * H/H 8.9/30 on 02/26/22 * iron panel- low normal serum iron, high normal TIBC, sat 12%- will start iron supplement * B12 and folate within normal limits * 03/01/22: hemoglobin and hematocrit today are stable at 8.3/27.6. (8) Dermatitis: Code(s): L30.9 - Dermatitis, unspecified Status: Acute Assessment and Plan: BLE red and warm to touch. Tender. Patient reports this is chronic. * Continue emollient after bathing. * Improving. Patient is on antibiotics
--- NOTE | 2022-03-01 11:22 | PM.IMPN ---
Progress Note: A&P Assessment and Plan (1) HCAP (healthcare-associated pneumonia): Code(s): J18.9 - Pneumonia, unspecified organism Status: Acute Assessment and Plan: Patient presented to SOB, PETERSON and weakness. Chest x-ray with bilateral lower lobe opacities and trace small left effusion. RT to induce sputum culture and gram stain legionella and pneumococcal antigen pending. Patient was hospitalized for >5 days in the past 30 days- Start Cefepime 2 grams Q12 hours and Vancomycin IV pharmacy dosed for MRSA and pseudomonas coverage. Check MRSA nasal swab- pending. Influenza A/B and SARS-COV2 negative Trend CBC and temperature curve. 03/01/22: Continue IV antibiotics, Monitor respiratory status and attempt to wean oxygen. (2) COPD (chronic obstructive pulmonary disease): Code(s): J44.9 - Chronic obstructive pulmonary disease, unspecified Status: Acute Assessment and Plan: Acute exacerbation of chronic disease. Poor air exchange in all bhatt. 02/27/22 Day 2 solu-medrol 40 mg IV Q8 hours Continue Duonebs Q4 hours scheduled Continue antibiotics as above. May be more COPD exacerbation than pneumonia, however, given above complaints with continue empiric broad-spectrum antibiotics for now. 03/01/22: Pt intolerant of being able to wean off of oxygen secondary to anxiety. She panics any time her oxygen has adjusted. Her sats however remaining within acceptable levels. (3) Physical deconditioning: Code(s): R53.81 - Other malaise Status: Acute Assessment and Plan: patient unable to transfer to and from wheelchair PT/OT consulted. TSH 1.4 Vit D 25-OH 50 B12 and folate within normal limits Venous doppler UE negative for DVT. Patient strongly encouraged to participate in therapy for return to prior level of functioning. Per patient's she was able to stand and transfer with minimal assistance from bed to wheelchair. But has been requiring max assistance 03/01/22: Patient again is intolerant of attempting to participate with physical therapy secondary to her feelings of dyspnea. Once again she is encouraged to attempt. (4) GERD (gastroesophageal reflux disease): Qualifiers: Esophagitis presence: without esophagitis Qualified Code(s): K21.9 - Gastro-esophageal reflux disease without esophagitis Code(s): K21.9 - Gastro-esophageal reflux disease without esophagitis Status: Chronic Assessment and Plan: ?03/01/22: Continue Protonix (5) Benign essential hypertension: Code(s): I10 - Essential (primary) hypertension Status: Chronic Assessment and Plan: 03/01/22: stable continue home medications. Continue to monitor vital signs. (6) Rectal pain: Code(s): K62.89 - Other specified diseases of anus and rectum Status: Acute Assessment and Plan: 03/01/22: P.r.n. rectal cream (7) Chronic anemia: Code(s): D64.9 - Anemia, unspecified Status: Acute Assessment and Plan: Chronic, stable. baseline H/H 9/30% H/H 8.9/30 on 02/26/22 iron panel- low normal serum iron, high normal TIBC, sat 12%- will start iron supplement B12 and folate within normal limits 03/01/22: hemoglobin and hematocrit today are stable at 8.3/27.6. (8) Dermatitis: Code(s): L30.9 - Dermatitis, unspecified Status: Acute Assessment and Plan: BLE red and warm to touch. Tender. Patient reports this is chronic. Continue emollient after bathing. Improving. Patient is on antibiotics that would cover cellulitis. Continue to monitor. 03/01/22: Continue current treatment plan IV antibiotics as well as topical creams. No open areas or concerns of an acute cellulitis infection at this time. (9) New onset type 2 diabetes mellitus: Code(s): E11.9 - Type 2 diabetes mellitus without complications Status: Acute Assessment and Plan: Noted in prior records patient has new diagnosi
[2022-03-01 11:25] LABS: Glucose Point of Care 172 mg/dl (65-105)
[2022-03-01 16:37] LABS: Glucose Point of Care 171 mg/dl (65-105)
[2022-03-01] MEDS: SENNA/DOCUSATE SODIUM TABLET 2 TAB PO (21:55)
[2022-03-01 22:21] LABS: Glucose Point of Care 236 mg/dl (65-105)
--- NOTE | 2022-03-01 23:05 | PC.NURSE ---
Pt is resting in bed. Pt has BiPap on. Pt had blood sugar of 236, provider notified and is treating with 2 units insulin. Pt has no complaints of pain and verbalizes no needs at this time. Pt participated and contributed to plan of care for the shift. Will continue to monitor pt.
[2022-03-01] MEDS: INSULIN ASPART (*BKC) 100 UNITS/ML SUB-Q (23:28)
[2022-03-02] VITALS (15 sets, daily range): BP systolic 137–153; BP diastolic 77–89; PULSE 85–98; RESP 15–24; TEMP 36.8–37.7; O2SAT 93–100
[2022-03-02] MEDS: IPRATROPIUM BR 0.02% INH SOLN 0.5 MG/2.5 ML VIAL INHALATION ×4 (00:03→19:42)
[2022-03-02] MEDS: ALBUTEROL SULFATE NEB 2.5 MG/3 ML INH 5 MG INHALATION ×4 (00:03→19:42)
--- NOTE | 2022-03-02 05:35 | PC.NURSE ---
Pt has been belligerent to staff this evening. Pt has called staff mey molina , called charge nurse mey bateman and told her to go to [facility] , and told the staff nurse, you don't know anything, get me someone that does . Pt continues to be abrasive toward staff. Pt has been asked to treat the staff with the same respect that she is shown. Provider has been notified. Will continue to monitor pt.
[2022-03-02] MEDS: LORazepam INJ (*CRX) 2 MG/ML VIAL 0.5 MG IV PUSH (05:49)
[2022-03-02] MEDS: methylPREDNISolone SOD SUCC 40 MG VIAL IV PUSH ×2 (06:54→15:14)
[2022-03-02 08:06] LABS: Basophils Percent Auto 0.1 % (0.2-1.2); Hematocrit 27.8 % (37.0-47.0); Hemoglobin 8.4 g/dL (12.0-15.0); Immature Granulocyte Absolute 0.05 K/mm3 (0.00-0.031); Immature Granulocyte Percent A 0.7 % (0-0.5); Lymphocytes Absolute Auto 0.27 K/mm3 (0.9-3.2); Lymphocytes Percent Auto 3.6 % (18.3-44.2); Mean Corpuscular HGB Conc 30.2 g/dl (32-36); Mean Corpuscular Hemoglobin 26.3 pg (26-34); Mean Corpuscular Volume 86.9 fl (80-100); Mean Platelet Volume 9.3 fl (7.4-10.4); Monocytes Absolute Auto 0.7 K/mm3 (0.1-0.6); Neutrophils Absolute Auto 6.5 K/mm3 (1.3-6.7); Neutrophils Percent Auto 86.6 % (45.5-73.1); Platelet Count Result 405 k/mm3 (150-375); Red Cell Distribution Width 15.2 % (11.5-14.5); White Blood Count 7.5 K/mm3 (4.5-10.0)
[2022-03-02 08:18] LABS: Alanine Aminotransferase 27 U/L (6-35); Albumin Level 3.6 g/dL (3.5-5.1); Alkaline Phosphatase 42 U/L (38-126); Anion Gap 5 mmol/L (8-16); Aspartate Amino Transferase 29 U/L (14-36); Bilirubin,Total 0.6 mg/dL (0.2-1.3); Blood Urea Nitrogen 28 mg/dL (7-17); Calcium 8.6 mg/dL (8.4-10.2); Carbon Dioxide 39 mmol/L (22-30); Chloride 88 mmol/L (98-107); Estimated CRCL calculation 73 ml/min; Estimated Glomerular Filt Rate > 60; Glucose 148 mg/dL (65-110); Magnesium 2.1 mg/dL (1.6-2.3); Potassium 4.8 mmol/L (3.4-5.0); Sodium 132 mmol/L (137-145)
[2022-03-02 09:04] LABS: Glucose Point of Care 146 mg/dl (65-105)
[2022-03-02] MEDS: oxyCODONE/ACETAMINOPHEN (*CRX) 10-325 MG TABLET 1 TAB PO ×2 (09:45→15:14)
[2022-03-02] MEDS: ENOXAPARIN 40 MG/0.4 ML SYRINGE SUB-Q (09:46)
[2022-03-02] MEDS: DICLOFENAC SODIUM 1% 100 GM GEL (*BKC) 1 APPLIC TOPICAL ×3 (09:46→20:20)
[2022-03-02] MEDS: PANTOPRAZOLE 40 MG TABLET PO (09:47)
[2022-03-02] MEDS: polyethylene glycoL 3350 17 GM POWD.PACK PO (09:47)
[2022-03-02] MEDS: OPTI-GEN TAB 1 TABLET PO ×2 (09:47→18:27)
[2022-03-02] MEDS: amLODIPine BESYLATE 5 MG TABLET PO (09:47)
[2022-03-02] MEDS: CELECOXIB 200 MG CAPSULE PO (09:47)
--- NOTE | 2022-03-02 09:53 | PCRCNOTE ---
Window of time for administration has passed. See next scheduled administration.
--- NOTE | 2022-03-02 11:30 | P.PNIM_ITS ---
Progress Note: A&P Assessment and Plan (1) HCAP (healthcare-associated pneumonia): Code(s): J18.9 - Pneumonia, unspecified organism Status: Acute Assessment and Plan: * Patient presented with SOB, PETERSON and weakness. * Chest x-ray with bilateral lower lobe opacities and trace small left effusion. * RT to induce sputum culture and gram stain * legionella and pneumococcal antigen continue to pend at this time * Patient was hospitalized for >5 days in the past 30 days- Start Cefepime 2 grams Q12 hours and Vancomycin IV pharmacy dosed for MRSA and pseudomonas coverage. * Check MRSA nasal swab-negative * Influenza A/B and SARS-COV2 negative * Trend CBC and temperature curve. (2) COPD (chronic obstructive pulmonary disease): Code(s): J44.9 - Chronic obstructive pulmonary disease, unspecified Status: Acute Assessment and Plan: * Acute exacerbation of chronic disease. * Poor air exchange in all bhatt. * 02/27/22 Day 4 solu-medrol 40 mg IV Q8 hours * Continue Duonebs Q4 hours scheduled * Continue antibiotics as above. * May be more COPD exacerbation than pneumonia, however, given above complaints with continue empiric broad-spectrum antibiotics for now. (3) Physical deconditioning: Code(s): R53.81 - Other malaise Status: Acute Assessment and Plan: patient unable to transfer to and from wheelchair * PT/OT consulted. * TSH 1.4 * Vit D 25-OH 50 * B12 and folate within normal limits * Venous doppler UE negative for DVT. * Patient strongly encouraged to participate in therapy for return to prior level of functioning. Per patient's she was able to stand and transfer with minimal assistance from bed to wheelchair. But has been requiring max assistance * 03/01/22: Patient again is intolerant of attempting to participate with physical therapy secondary to her feelings of dyspnea. Once again she is encouraged to attempt. (4) GERD (gastroesophageal reflux disease): Qualifiers: Esophagitis presence: without esophagitis Qualified Code(s): K21.9 - Ga stro-esophageal reflux disease without esophagitis Code(s): K21.9 - Gastro-esophageal reflux disease without esophagitis Status: Chronic Assessment and Plan: * ?03/01/22: Continue Protonix (5) Benign essential hypertension: Code(s): I10 - Essential (primary) hypertension Status: Chronic Assessment and Plan: * Current BP is 151/81 * Continue home medications * Trend BP * Adjust medications (6) Rectal pain: Code(s): K62.89 - Other specified diseases of anus and rectum Status: Acute Assessment and Plan: * 03/01/22: P.r.n. rectal cream (7) Chronic anemia: Code(s): D64.9 - Anemia, unspecified Status: Acute Assessment and Plan: * Chronic, stable. baseline H/H 9/30% * H/H current 8.4/27.8 * iron panel- low normal serum iron, high normal TIBC, sat 12%- will start iron supplement * B12 and folate within normal limits * Stable (8) Dermatitis: Code(s): L30.9 - Dermatitis, unspecified Status: Acute Assessment and Plan: BLE red and warm to touch. Tender. Patient reports this is chronic. * Continue emollient after bathing. * Improving. Patient is on antibiotics that would cover cellulitis. Continue to monitor.
--- NOTE | 2022-03-02 11:30 | PM.IMPN ---
Progress Note: A&P Assessment and Plan (1) HCAP (healthcare-associated pneumonia): Code(s): J18.9 - Pneumonia, unspecified organism Status: Acute Assessment and Plan: Patient presented with SOB, PETERSON and weakness. Chest x-ray with bilateral lower lobe opacities and trace small left effusion. RT to induce sputum culture and gram stain legionella and pneumococcal antigen continue to pend at this time Patient was hospitalized for >5 days in the past 30 days- Start Cefepime 2 grams Q12 hours and Vancomycin IV pharmacy dosed for MRSA and pseudomonas coverage. Check MRSA nasal swab-negative Influenza A/B and SARS-COV2 negative Trend CBC and temperature curve. (2) COPD (chronic obstructive pulmonary disease): Code(s): J44.9 - Chronic obstructive pulmonary disease, unspecified Status: Acute Assessment and Plan: Acute exacerbation of chronic disease. Poor air exchange in all bhatt. 02/27/22 Day 4 solu-medrol 40 mg IV Q8 hours Continue Duonebs Q4 hours scheduled Continue antibiotics as above. May be more COPD exacerbation than pneumonia, however, given above complaints with continue empiric broad-spectrum antibiotics for now. (3) Physical deconditioning: Code(s): R53.81 - Other malaise Status: Acute Assessment and Plan: patient unable to transfer to and from wheelchair PT/OT consulted. TSH 1.4 Vit D 25-OH 50 B12 and folate within normal limits Venous doppler UE negative for DVT. Patient strongly encouraged to participate in therapy for return to prior level of functioning. Per patient's she was able to stand and transfer with minimal assistance from bed to wheelchair. But has been requiring max assistance 03/01/22: Patient again is intolerant of attempting to participate with physical therapy secondary to her feelings of dyspnea. Once again she is encouraged to attempt. (4) GERD (gastroesophageal reflux disease): Qualifiers: Esophagitis presence: without esophagitis Qualified Code(s): K21.9 - Gastro-esophageal reflux disease without esophagitis Code(s): K21.9 - Gastro-esophageal reflux disease without esophagitis Status: Chronic Assessment and Plan: ?03/01/22: Continue Protonix (5) Benign essential hypertension: Code(s): I10 - Essential (primary) hypertension Status: Chronic Assessment and Plan: Current BP is 151/81 Continue home medications Trend BP Adjust medications (6) Rectal pain: Code(s): K62.89 - Other specified diseases of anus and rectum Status: Acute Assessment and Plan: 03/01/22: P.r.n. rectal cream (7) Chronic anemia: Code(s): D64.9 - Anemia, unspecified Status: Acute Assessment and Plan: Chronic, stable. baseline H/H 9/30% H/H current 8.4/27.8 iron panel- low normal serum iron, high normal TIBC, sat 12%- will start iron supplement B12 and folate within normal limits Stable (8) Dermatitis: Code(s): L30.9 - Dermatitis, unspecified Status: Acute Assessment and Plan: BLE red and warm to touch. Tender. Patient reports this is chronic. Continue emollient after bathing. Improving. Patient is on antibiotics that would cover cellulitis. Continue to monitor. (9) New onset type 2 diabetes mellitus: Code(s): E11.9 - Type 2 diabetes mellitus without complications Status: Acute Assessment and Plan: Noted in prior records patient has new diagnosis of diabetes. Patient is not currently on antidiabetic medications. A1c 5.8% accu-checks AC/HS with low-dose sliding scale insulin with meals while initiating systemic steroids. Current glucose 148 (10) Chronic diastolic (congestive) heart failure: Onset Date: Unknown Code(s): I50.32 - Chronic diastolic (congestive) heart failure
[2022-03-02 11:33] LABS: Glucose Point of Care 159 mg/dl (65-105)
--- NOTE | 2022-03-02 15:26 | PCOTNOTE ---
Patient not seen for OT this date. Will continue plan of care.
[2022-03-02 16:41] LABS: Glucose Point of Care 180 mg/dl (65-105)
--- NOTE | 2022-03-02 19:52 | PCRCNOTE ---
pt found in distress with stable VS. 98% sp02, 97 HR. BS are extremely diminished. pt placed on BIPAP with duoneb and stated she is feeling better.
[2022-03-02] MEDS: INSULIN ASPART (*BKC) 100 UNITS/ML SUB-Q (22:24)
[2022-03-02 22:33] LABS: Glucose Point of Care 245 mg/dl (65-105)
--- NOTE | 2022-03-02 22:51 | PC.NURSE ---
Pts is at bedside. Pt states she is having trouble breathing, her saturations are 96%, respiratory was notified and gave pt a breathing treatment. Pt is now on BiPAP. Pt participated and contributed in plan of care for this shift. Pt verbalizes no needs at this time. Pt denies any pain. Will continue to monitor pt.
[2022-03-02 23:58] LABS: Pneumococcal Antigen Urine Not Detected (Not Detected)
[2022-03-03] VITALS (16 sets, daily range): BP systolic 145–153; BP diastolic 50–66; PULSE 85–96; RESP 20–23; TEMP 36.5–36.8; O2SAT 95–99
[2022-03-03] MEDS: ALBUTEROL SULFATE NEB 2.5 MG/3 ML INH 5 MG INHALATION ×5 (00:45→20:11)
[2022-03-03] MEDS: IPRATROPIUM BR 0.02% INH SOLN 0.5 MG/2.5 ML VIAL INHALATION ×5 (00:45→20:11)
[2022-03-03] MEDS: methylPREDNISolone SOD SUCC 40 MG VIAL IV PUSH ×3 (00:49→20:39)
[2022-03-03 08:24] LABS: Eosinophils Percent Auto 0.2 % (0-4.4); Hematocrit 27.9 % (37.0-47.0); Hemoglobin 8.2 g/dL (12.0-15.0); Immature Granulocyte Absolute 0.05 K/mm3 (0.00-0.031); Immature Granulocyte Percent A 0.9 % (0-0.5); Lymphocytes Percent Auto 3.7 % (18.3-44.2); Mean Corpuscular HGB Conc 29.4 g/dl (32-36); Mean Corpuscular Volume 88.6 fl (80-100); Mean Platelet Volume 10.1 fl (7.4-10.4); Monocytes Absolute Auto 0.5 K/mm3 (0.1-0.6); Monocytes Percent Auto 9.8 % (2.6-8.5); Neutrophils Absolute Auto 4.6 K/mm3 (1.3-6.7); Neutrophils Percent Auto 85.4 % (45.5-73.1); Platelet Count Result 364 k/mm3 (150-375); Red Blood Count 3.15 M/mm3 (4.2-5.4); White Blood Count 5.4 K/mm3 (4.5-10.0)
[2022-03-03 08:31] LABS: Glucose Point of Care 167 mg/dl (65-105)
[2022-03-03 08:38] LABS: Alanine Aminotransferase 32 U/L (6-35); Albumin Level 3.6 g/dL (3.5-5.1); Alkaline Phosphatase 50 U/L (38-126); Anion Gap 7 mmol/L (8-16); Aspartate Amino Transferase 24 U/L (14-36); Bilirubin,Total 0.4 mg/dL (0.2-1.3); Blood Urea Nitrogen 34 mg/dL (7-17); Calcium 8.4 mg/dL (8.4-10.2); Carbon Dioxide 39 mmol/L (22-30); Chloride 86 mmol/L (98-107); Estimated CRCL calculation 62 ml/min; Estimated Glomerular Filt Rate > 60; Glucose 162 mg/dL (65-110); Magnesium 2.1 mg/dL (1.6-2.3); Potassium 4.7 mmol/L (3.4-5.0); Sodium 132 mmol/L (137-145)
[2022-03-03 09:03] LABS: Vancomycin Trough 26.7 ug/mL (10.0-20.0)
[2022-03-03] MEDS: oxyCODONE/ACETAMINOPHEN (*CRX) 10-325 MG TABLET 1 TAB PO ×2 (09:37→20:39)
[2022-03-03] MEDS: DICLOFENAC SODIUM 1% 100 GM GEL (*BKC) 1 APPLIC TOPICAL ×3 (09:38→20:36)
[2022-03-03] MEDS: OPTI-GEN TAB 1 TABLET PO ×2 (09:39→17:30)
[2022-03-03] MEDS: polyethylene glycoL 3350 17 GM POWD.PACK PO (09:39)
[2022-03-03] MEDS: CELECOXIB 200 MG CAPSULE PO (09:39)
[2022-03-03] MEDS: ENOXAPARIN 40 MG/0.4 ML SYRINGE SUB-Q (09:39)
[2022-03-03] MEDS: amLODIPine BESYLATE 5 MG TABLET PO (09:39)
[2022-03-03] MEDS: PANTOPRAZOLE 40 MG TABLET PO (09:39)
--- NOTE | 2022-03-03 10:43 | PCRCNOTE ---
Window of time for administration has passed. See next scheduled administration.
--- NOTE | 2022-03-03 11:15 | P.PNIM_ITS ---
Progress Note: A&P Assessment and Plan (1) HCAP (healthcare-associated pneumonia): Code(s): J18.9 - Pneumonia, unspecified organism Status: Acute Assessment and Plan: * Patient presented with SOB, PETERSON and weakness. * Chest x-ray with bilateral lower lobe opacities and trace small left effusion continued to show on the xray * RT to induce sputum culture and gram stain * legionella remains pending and pneumococcal was negative * Patient was hospitalized for >5 days in the past 30 days- Start Cefepime 2 grams Q12 hours and Vancomycin IV pharmacy dosed for MRSA and pseudomonas coverage. * Check MRSA nasal swab-negative * Influenza A/B and SARS-COV2 negative * Trend CBC and temperature curve. * CTA ordered * (2) COPD (chronic obstructive pulmonary disease): Code(s): J44.9 - Chronic obstructive pulmonary disease, unspecified Status: Acute Assessment and Plan: * Acute exacerbation of chronic disease. * Poor air exchange in all bhatt. * 02/27/22 Day 5 solu-medrol 40 mg IV Q8 hours, decrease to prednisone 40mg PO for a taper * Continue Duonebs Q4 hours scheduled * Continue antibiotics as above. * May be more COPD exacerbation than pneumonia, however, given above complaints with continue empiric broad-spectrum antibiotics for now. (3) Physical deconditioning: Code(s): R53.81 - Other malaise Status: Acute Assessment and Plan: patient unable to transfer to and from wheelchair * PT/OT consulted. * TSH 1.4 * Vit D 25-OH 50 * B12 and folate within normal limits * Venous doppler UE negative for DVT. * Patient strongly encouraged to participate in therapy for return to prior level of functioning. Per patient's she was able to stand and transfer with minimal assistance from bed to wheelchair. But has been requiring max assistance * 03/01/22: Patient again is intolerant of attempting to participate with physical therapy secondary to her feelings of dyspnea. Once again she is encouraged to attempt. (4) GERD (gastroesophageal reflux disease): Qualifiers: Esophagitis presence: without esophagitis Qualified Code(s): K21.9 - Gastro-esophageal reflux disease without esophagitis Code(s): K21.9 - Gastro-esophageal reflux disease without esophagitis Status: Chronic Assessment and Plan: * ?03/01/22: Continue Protonix (5) Benign essential hypertension: Code(s): I10 - Essential (primary) hypertension Status: Chronic Assessment and Plan: * Current BP is 153/50 * Continue home medications * Trend BP * Adjust medications (6) Rectal pain: Code(s): K62.89 - Other specified diseases of anus and rectum Status: Acute Assessment and Plan: * 03/01/22: P.r.n. rectal cream (7) Chronic anemia: Code(s): D64.9 - Anemia, unspecified Status: Acute Assessment and Plan: * Chronic, stable. baseline H/H 9/30% * H/H current 8.2/27.9 * iron panel- low normal serum iron, high normal TIBC, sat 12%- will start iron supplement * B12 and folate within normal limits * Stable (8) Dermatitis: Code(s): L30.9 - Dermatitis, unspecified Status: Acute Assessment and Plan: * BLE red and warm to touch. Tender. Patient reports this is chronic. * Continue emollient after bathing. * Im
--- NOTE | 2022-03-03 11:15 | PM.IMPN ---
Progress Note: A&P Assessment and Plan (1) HCAP (healthcare-associated pneumonia): Code(s): J18.9 - Pneumonia, unspecified organism Status: Acute Assessment and Plan: Patient presented with SOB, PETERSON and weakness. Chest x-ray with bilateral lower lobe opacities and trace small left effusion continued to show on the xray RT to induce sputum culture and gram stain legionella remains pending and pneumococcal was negative Patient was hospitalized for >5 days in the past 30 days- Start Cefepime 2 grams Q12 hours and Vancomycin IV pharmacy dosed for MRSA and pseudomonas coverage. Check MRSA nasal swab-negative Influenza A/B and SARS-COV2 negative Trend CBC and temperature curve. CTA ordered (2) COPD (chronic obstructive pulmonary disease): Code(s): J44.9 - Chronic obstructive pulmonary disease, unspecified Status: Acute Assessment and Plan: Acute exacerbation of chronic disease. Poor air exchange in all bhatt. 02/27/22 Day 5 solu-medrol 40 mg IV Q8 hours, decrease to prednisone 40mg PO for a taper Continue Duonebs Q4 hours scheduled Continue antibiotics as above. May be more COPD exacerbation than pneumonia, however, given above complaints with continue empiric broad-spectrum antibiotics for now. (3) Physical deconditioning: Code(s): R53.81 - Other malaise Status: Acute Assessment and Plan: patient unable to transfer to and from wheelchair PT/OT consulted. TSH 1.4 Vit D 25-OH 50 B12 and folate within normal limits Venous doppler UE negative for DVT. Patient strongly encouraged to participate in therapy for return to prior level of functioning. Per patient's she was able to stand and transfer with minimal assistance from bed to wheelchair. But has been requiring max assistance 03/01/22: Patient again is intolerant of attempting to participate with physical therapy secondary to her feelings of dyspnea. Once again she is encouraged to attempt. (4) GERD (gastroesophageal reflux disease): Qualifiers: Esophagitis presence: without esophagitis Qualified Code(s): K21.9 - Gastro-esophageal reflux disease without esophagitis Code(s): K21.9 - Gastro-esophageal reflux disease without esophagitis Status: Chronic Assessment and Plan: ?03/01/22: Continue Protonix (5) Benign essential hypertension: Code(s): I10 - Essential (primary) hypertension Status: Chronic Assessment and Plan: Current BP is 153/50 Continue home medications Trend BP Adjust medications (6) Rectal pain: Code(s): K62.89 - Other specified diseases of anus and rectum Status: Acute Assessment and Plan: 03/01/22: P.r.n. rectal cream (7) Chronic anemia: Code(s): D64.9 - Anemia, unspecified Status: Acute Assessment and Plan: Chronic, stable. baseline H/H 9/30% H/H current 8.2/27.9 iron panel- low normal serum iron, high normal TIBC, sat 12%- will start iron supplement B12 and folate within normal limits Stable (8) Dermatitis: Code(s): L30.9 - Dermatitis, unspecified Status: Acute Assessment and Plan: BLE red and warm to touch. Tender. Patient reports this is chronic. Continue emollient after bathing. Improving. Patient is on antibiotics that would cover cellulitis. Continue to monitor. (9) New onset type 2 diabetes mellitus: Code(s): E11.9 - Type 2 diabetes mellitus without complications Status: Acute Assessment and Plan: Noted in prior records patient has new diagnosis of diabetes. Patient is not currently on antidiabetic medications. A1c 5.8% accu-checks AC/HS with low-dose sliding scale insulin with meals while initiating systemic steroids. Current glucose 162 (10) Chronic diastolic (congestive) heart failure: Onset Date: U
[2022-03-03 11:53] LABS: Glucose Point of Care 164 mg/dl (65-105)
[2022-03-03] MEDS: MORPHINE SULFATE (*CRX) 2 MG/ML INJ 1 MG IV PUSH (12:23)
[2022-03-03 16:16] LABS: NT Pro B Type Natriuretic Pept 1150 pg/mL (5-100)
[2022-03-03 16:19] LABS: Glucose Point of Care 134 mg/dl (65-105)
[2022-03-03 17:02] LABS: Legionella pneumophila Ag Ur Not Detected (Not Detected)
[2022-03-03] MEDS: FERROUS SULFATE 324 MG TABLET PO (17:28)
[2022-03-03] MEDS: FUROSEMIDE INJ 40 MG/4 ML VIAL IV PUSH (17:31)
[2022-03-03] MEDS: hydrOXYzine HCL 25 MG TABLET PO (20:39)
[2022-03-03 21:33] LABS: Glucose Point of Care 132 mg/dl (65-105)
[2022-03-04] VITALS (15 sets, daily range): BP systolic 139–150; BP diastolic 43–67; PULSE 68–100; RESP 18–22; TEMP 36.6–36.9; O2SAT 96–100
[2022-03-04] MEDS: IPRATROPIUM BR 0.02% INH SOLN 0.5 MG/2.5 ML VIAL INHALATION ×6 (00:03→21:33)
[2022-03-04] MEDS: ALBUTEROL SULFATE NEB 2.5 MG/3 ML INH 5 MG INHALATION ×6 (00:03→21:33)
[2022-03-04] MEDS: methylPREDNISolone SOD SUCC 40 MG VIAL IV PUSH ×3 (05:32→22:55)
[2022-03-04 08:39] LABS: Glucose Point of Care 156 mg/dl (65-105)
--- NOTE | 2022-03-04 08:42 | PCNWS ---
Weekly nutritional screen. Patient is tolerating current diet with adequate intake. No weight loss reported. No nutritional needs at this time.
[2022-03-04] MEDS: OPTI-GEN TAB 1 TABLET PO ×2 (08:43→16:14)
[2022-03-04] MEDS: amLODIPine BESYLATE 5 MG TABLET PO (08:43)
[2022-03-04] MEDS: FERROUS SULFATE 324 MG TABLET PO ×2 (08:44→16:15)
[2022-03-04] MEDS: PANTOPRAZOLE 40 MG TABLET PO (08:44)
[2022-03-04] MEDS: CELECOXIB 200 MG CAPSULE PO (08:45)
[2022-03-04] MEDS: DICLOFENAC SODIUM 1% 100 GM GEL (*BKC) 1 APPLIC TOPICAL ×4 (08:45→22:55)
[2022-03-04] MEDS: ENOXAPARIN 40 MG/0.4 ML SYRINGE SUB-Q (08:45)
[2022-03-04] MEDS: oxyCODONE/ACETAMINOPHEN (*CRX) 10-325 MG TABLET 1 TAB PO (08:48)
[2022-03-04 09:09] LABS: Alanine Aminotransferase 41 U/L (6-35); Albumin Level 3.6 g/dL (3.5-5.1); Alkaline Phosphatase 56 U/L (38-126); Aspartate Amino Transferase 27 U/L (14-36); Bilirubin,Total 0.3 mg/dL (0.2-1.3); Blood Urea Nitrogen 28 mg/dL (7-17); Calcium 8.6 mg/dL (8.4-10.2); Carbon Dioxide > 40 mmol/L (22-30); Chloride 82 mmol/L (98-107); Estimated CRCL calculation 48 ml/min; Estimated Glomerular Filt Rate > 60; Glucose 165 mg/dL (65-110); Magnesium 2.1 mg/dL (1.6-2.3); Potassium 4.3 mmol/L (3.4-5.0); Sodium 130 mmol/L (137-145)
--- NOTE | 2022-03-04 09:45 | PM.IMPN ---
Progress Note: A&P Assessment and Plan (1) HCAP (healthcare-associated pneumonia): Code(s): J18.9 - Pneumonia, unspecified organism Status: Acute Assessment and Plan: Patient presented with SOB, PETERSON and weakness. Chest x-ray with bilateral lower lobe opacities and trace small left effusion continued to show on the xray RT to induce sputum culture and gram stain legionella remains pending and pneumococcal was negative Patient was hospitalized for >5 days in the past 30 days- Start Cefepime 2 grams Q12 hours and Vancomycin IV pharmacy dosed for MRSA and pseudomonas coverage. Check MRSA nasal swab-negative Influenza A/B and SARS-COV2 negative Trend CBC and temperature curve. CTA had no findings of PE, does show atelectasis and mild left pleural effusion Encourage IS use (2) Bacteremia: Code(s): R78.81 - Bacteremia Status: Acute Assessment and Plan: both blood cultures were positive Continue current therapy for a total of 10 days Seems stable at this time (3) COPD (chronic obstructive pulmonary disease): Code(s): J44.9 - Chronic obstructive pulmonary disease, unspecified Status: Acute Assessment and Plan: Acute exacerbation of chronic disease. Poor air exchange in all bhatt. Continue prednisone 40mg PO for a taper Continue Duonebs Q4 hours scheduled Continue antibiotics as above. May be more COPD exacerbation than pneumonia, however, given above complaints with continue empiric broad-spectrum antibiotics for now. (4) Physical deconditioning: Code(s): R53.81 - Other malaise Status: Acute Assessment and Plan: patient unable to transfer to and from wheelchair PT/OT consulted. TSH 1.4 Vit D 25-OH 50 B12 and folate within normal limits Venous doppler UE negative for DVT. Patient strongly encouraged to participate in therapy for return to prior level of functioning. Per patient's she was able to stand and transfer with minimal assistance from bed to wheelchair. But has been requiring max assistance was able to get patient to the commode with minimal assist (5) GERD (gastroesophageal reflux disease): Qualifiers: Esophagitis presence: without esophagitis Qualified Code(s): K21.9 - Gastro-esophageal reflux disease without esophagitis Code(s): K21.9 - Gastro-esophageal reflux disease without esophagitis Status: Chronic Assessment and Plan: ?03/01/22: Continue Protonix (6) Benign essential hypertension: Code(s): I10 - Essential (primary) hypertension Status: Chronic Assessment and Plan: Current BP is 143/43 Continue home medications Trend BP Adjust medications (7) Rectal pain: Code(s): K62.89 - Other specified diseases of anus and rectum Status: Acute Assessment and Plan: 03/01/22: P.r.n. rectal cream (8) Chronic anemia: Code(s): D64.9 - Anemia, unspecified Status: Acute Assessment and Plan: Chronic, stable. baseline H/H 9/30% H/H current 8.4/28.3 iron panel- low normal serum iron, high normal TIBC, sat 12%- will start iron supplement B12 and folate within normal limits Stable (9) Dermatitis: Code(s): L30.9 - Dermatitis, unspecified Status: Acute Assessment and Plan: BLE red and warm to touch. Tender. Patient reports this is chronic. Continue emollient after bathing. Improving. Patient is on antibiotics that would cover cellulitis. Continue to monitor. (10) New onset type 2 diabetes mellitus: Code(s): E11.9 - Type 2 diabetes mellitus without complications Status: Acute Assessment and Plan: Noted in prior records patient has new diagnosis of diabetes. Patient is not currently on antidiabetic medications. A1c 5.8% accu-checks AC/HS with low-dose sliding scale ins
--- NOTE | 2022-03-04 09:45 | P.PNIM_ITS ---
Progress Note: A&P Assessment and Plan (1) HCAP (healthcare-associated pneumonia): Code(s): J18.9 - Pneumonia, unspecified organism Status: Acute Assessment and Plan: * Patient presented with SOB, PETERSON and weakness. * Chest x-ray with bilateral lower lobe opacities and trace small left effusion continued to show on the xray * RT to induce sputum culture and gram stain * legionella remains pending and pneumococcal was negative * Patient was hospitalized for >5 days in the past 30 days- Start Cefepime 2 grams Q12 hours and Vancomycin IV pharmacy dosed for MRSA and pseudomonas coverage. * Check MRSA nasal swab-negative * Influenza A/B and SARS-COV2 negative * Trend CBC and temperature curve. * CTA had no findings of PE, does show atelectasis and mild left pleural effusion * Encourage IS use (2) Bacteremia: Code(s): R78.81 - Bacteremia Status: Acute Assessment and Plan: * both blood cultures were positive * Continue current therapy for a total of 10 days * Seems stable at this time (3) COPD (chronic obstructive pulmonary disease): Code(s): J44.9 - Chronic obstructive pulmonary disease, unspecified Status: Acute Assessment and Plan: * Acute exacerbation of chronic disease. * Poor air exchange in all bhatt. * Continue prednisone 40mg PO for a taper * Continue Duonebs Q4 hours scheduled * Continue antibiotics as above. * May be more COPD exacerbation than pneumonia, however, given above complaints with continue empiric broad-spectrum antibiotics for now. (4) Physical deconditioning: Code(s): R53.81 - Other malaise Status: Acute Assessment and Plan: patient unable to transfer to and from wheelchair * PT/OT consulted. * TSH 1.4 * Vit D 25-OH 50 * B12 and folate within normal limits * Venous doppler UE negative for DVT. * Patient strongly encouraged to participate in therapy for return to prior level of functioning. Per patient's she was able to stand and transfer with minimal assistance from bed to wheelchair. But has been requiring max assistance * was able to get patient to the commode with minimal assist (5) GERD (gastroesophageal reflux disease): Qualifiers: Esophagitis presence: without esophagitis Qualified Code(s): K21.9 - Gastro-esophageal reflux disease without esophagitis Code(s): K21.9 - Gastro-esophageal reflux disease without esophagitis Status: Chronic Assessment and Plan: * ?03/01/22: Continue Protonix (6) Benign essential hypertension: Code(s): I10 - Essential (primary) hypertension Status: Chronic Assessment and Plan: * Current BP is 143/43 * Continue home medications * Trend BP * Adjust medications (7) Rectal pain: Code(s): K62.89 - Other specified diseases of anus and rectum Status: Acute Assessment and Plan: * 03/01/22: P.r.n. rectal cream (8) Chronic anemia: Code(s): D64.9 - Anemia, unspecified Status: Acute Assessment and Plan: * Chronic, stable. baseline H/H 9/30% * H/H current 8.4/28.3 * iron panel- low normal serum iron, high normal TIBC, sat 12%- will start iron supplement * B12 and folate within normal limits * Stable (9) Dermatitis: Code(s): L30.9
[2022-03-04] MEDS: ALPRAZolam (*CRX) 0.25 MG TABLET (11:30)
[2022-03-04 11:37] LABS: Glucose Point of Care 255 mg/dl (65-105)
[2022-03-04] MEDS: INSULIN ASPART (*BKC) 100 UNITS/ML SUB-Q (12:01)
[2022-03-04 12:21] LABS: Basophils Percent Auto 0.2 % (0.2-1.2); Eosinophils Percent Auto 0.2 % (0-4.4); Hematocrit 28.3 % (37.0-47.0); Hemoglobin 8.4 g/dL (12.0-15.0); Immature Granulocyte Absolute 0.06 K/mm3 (0.00-0.031); Lymphocytes Absolute Auto 0.23 K/mm3 (0.9-3.2); Lymphocytes Percent Auto 3.7 % (18.3-44.2); Mean Corpuscular HGB Conc 29.7 g/dl (32-36); Mean Corpuscular Hemoglobin 25.8 pg (26-34); Mean Corpuscular Volume 87.1 fl (80-100); Mean Platelet Volume 9.7 fl (7.4-10.4); Monocytes Absolute Auto 0.6 K/mm3 (0.1-0.6); Neutrophils Absolute Auto 5.4 K/mm3 (1.3-6.7); Neutrophils Percent Auto 85.9 % (45.5-73.1); Platelet Count Result 495 k/mm3 (150-375); Red Blood Count 3.25 M/mm3 (4.2-5.4); Red Cell Distribution Width 15.1 % (11.5-14.5); White Blood Count 6.2 K/mm3 (4.5-10.0)
[2022-03-04 16:39] LABS: Glucose Point of Care 130 mg/dl (65-105)
[2022-03-04] MEDS: SENNA/DOCUSATE SODIUM TABLET 2 TAB PO (22:55)
[2022-03-04 23:49] LABS: Glucose Point of Care 209 mg/dl (65-105)
[2022-03-05] VITALS (12 sets, daily range): BP systolic 139; BP diastolic 53; PULSE 82–94; RESP 20–24; TEMP 36.6; O2SAT 92–99
[2022-03-05] MEDS: ALBUTEROL SULFATE NEB 2.5 MG/3 ML INH 5 MG INHALATION ×3 (01:00→08:26)
[2022-03-05] MEDS: IPRATROPIUM BR 0.02% INH SOLN 0.5 MG/2.5 ML VIAL INHALATION ×3 (01:00→08:27)
[2022-03-05] MEDS: oxyCODONE/ACETAMINOPHEN (*CRX) 10-325 MG TABLET 1 TAB PO ×2 (01:49→13:26)
[2022-03-05] MEDS: hydrOXYzine HCL 25 MG TABLET PO (01:49)
[2022-03-05] MEDS: methylPREDNISolone SOD SUCC 40 MG VIAL IV PUSH (06:21)
[2022-03-05 06:37] LABS: Basophils Percent Auto 0.1 % (0.2-1.2); Hematocrit 28.6 % (37.0-47.0); Hemoglobin 8.6 g/dL (12.0-15.0); Immature Granulocyte Percent A 1.2 % (0-0.5); Lymphocytes Absolute Auto 0.31 K/mm3 (0.9-3.2); Lymphocytes Percent Auto 3.6 % (18.3-44.2); Mean Corpuscular HGB Conc 30.1 g/dl (32-36); Mean Corpuscular Hemoglobin 25.6 pg (26-34); Mean Corpuscular Volume 85.1 fl (80-100); Mean Platelet Volume 9.5 fl (7.4-10.4); Monocytes Percent Auto 11.6 % (2.6-8.5); Neutrophils Absolute Auto 7.2 K/mm3 (1.3-6.7); Neutrophils Percent Auto 83.5 % (45.5-73.1); Platelet Count Result 502 k/mm3 (150-375); Red Blood Count 3.36 M/mm3 (4.2-5.4); Red Cell Distribution Width 14.9 % (11.5-14.5); White Blood Count 8.6 K/mm3 (4.5-10.0)
[2022-03-05 08:16] LABS: Glucose Point of Care 177 mg/dl (65-105)
[2022-03-05 08:38] LABS: Alanine Aminotransferase 51 U/L (6-35); Albumin Level 3.6 g/dL (3.5-5.1); Alkaline Phosphatase 50 U/L (38-126); Anion Gap 5 mmol/L (8-16); Aspartate Amino Transferase 30 U/L (14-36); Bilirubin,Total 0.5 mg/dL (0.2-1.3); Blood Urea Nitrogen 29 mg/dL (7-17); Calcium 8.3 mg/dL (8.4-10.2); Carbon Dioxide 37 mmol/L (22-30); Chloride 87 mmol/L (98-107); Estimated CRCL calculation 91 ml/min; Estimated Glomerular Filt Rate > 60; Glucose 154 mg/dL (65-110); Magnesium 2.2 mg/dL (1.6-2.3); Potassium 4.6 mmol/L (3.4-5.0); Sodium 129 mmol/L (137-145)
--- NOTE | 2022-03-05 09:00 | P.DS_ITS ---
DS: Admitting Diagnosis Discharge Date 03/05/22 0900 Admitting Diagnosis HCAP, Bacteremia DS: Discharge Diagnosis Discharge Diagnosis (1) HCAP (healthcare-associated pneumonia): Code(s): J18.9 - Pneumonia, unspecified organism Status: Acute Assessment and Plan: * Patient presented with SOB, PETERSON and weakness. * Chest x-ray with bilateral lower lobe opacities and trace small left effusion continued to show on the xray * RT to induce sputum culture and gram stain * legionella remains pending and pneumococcal was negative * Patient was hospitalized for >5 days in the past 30 days- Start Cefepime 2 grams Q12 hours and Vancomycin IV pharmacy dosed for MRSA and pseudomonas coverage. * Check MRSA nasal swab-negative * Influenza A/B and SARS-COV2 negative * Trend CBC and temperature curve. * CTA had no findings of PE, does show atelectasis and mild left pleural effusion * Encourage IS use (2) Bacteremia: Code(s): R78.81 - Bacteremia Status: Acute Assessment and Plan: * both blood cultures were positive * Continue current therapy for a total of 10 days * Seems stable at this time * Change to (3) COPD (chronic obstructive pulmonary disease): Code(s): J44.9 - Chronic obstructive pulmonary disease, unspecified Status: Acute Assessment and Plan: * Acute exacerbation of chronic disease. * Poor air exchange in all bhatt. * Continue prednisone 40mg PO for a taper * Continue Duonebs Q4 hours scheduled * Continue antibiotics as above. * May be more COPD exacerbation than pneumonia, however, given above complaints with continue empiric broad-spectrum antibiotics for now. (4) Physical deconditioning: Code(s): R53.81 - Other malaise Status: Acute Assessment and Plan: patient unable to transfer to and from wheelchair * PT/OT consulted. * TSH 1.4 * Vit D 25-OH 50 * B12 and folate within normal limits * Venous doppler UE negative for DVT. * Patient strongly encouraged to participate in therapy for return to prior level of functioning. Per patient's she was able to stand and transfer with minimal assistance from bed to wheelchair. But has been requiring max assistance * was able to get patient to the commode with minimal assist (5) GERD (gastroesophageal reflux disease): Qualifiers: Esophagitis presence: without esophagitis Qualified Code(s): K21.9 - Gastro-esophageal reflux disease without esophagitis Code(s): K21.9 - Gastro-esophageal reflux disease without esophagitis Status: Chronic Assessment and Plan: * ?03/01/22: Continue Protonix (6) Benign essential hypertension: Code(s): I10 - Essential (primary) hypertension Status: Chronic Assessment and Plan: * Current BP is 139/53 * Continue home medications * Trend BP * Adjust medications (7) Rectal pain: Code(s): K62.89 - Other specified diseases of anus and rectum Status: Acute Assessment and Plan: * 03/01/22: P.r.n. rectal cream (8) Chronic anemia: Code(s): D64.9 - Anemia, unspecified Status: Acute Assessment and Plan: * Chronic, stable. baseline H/H 9/30% * H/H current 8.6/28.6 * iron panel- low normal serum iron, high normal TIBC, sat 12%- will start iron supplem
--- NOTE | 2022-03-05 09:00 | PM.DS ---
DS: Admitting Diagnosis Discharge Date 03/05/22 0900 Admitting Diagnosis HCAP, Bacteremia DS: Discharge Diagnosis Discharge Diagnosis (1) HCAP (healthcare-associated pneumonia): Code(s): J18.9 - Pneumonia, unspecified organism Status: Acute Assessment and Plan: Patient presented with SOB, PETERSON and weakness. Chest x-ray with bilateral lower lobe opacities and trace small left effusion continued to show on the xray RT to induce sputum culture and gram stain legionella remains pending and pneumococcal was negative Patient was hospitalized for >5 days in the past 30 days- Start Cefepime 2 grams Q12 hours and Vancomycin IV pharmacy dosed for MRSA and pseudomonas coverage. Check MRSA nasal swab-negative Influenza A/B and SARS-COV2 negative Trend CBC and temperature curve. CTA had no findings of PE, does show atelectasis and mild left pleural effusion Encourage IS use (2) Bacteremia: Code(s): R78.81 - Bacteremia Status: Acute Assessment and Plan: both blood cultures were positive Continue current therapy for a total of 10 days Seems stable at this time Change to (3) COPD (chronic obstructive pulmonary disease): Code(s): J44.9 - Chronic obstructive pulmonary disease, unspecified Status: Acute Assessment and Plan: Acute exacerbation of chronic disease. Poor air exchange in all bhatt. Continue prednisone 40mg PO for a taper Continue Duonebs Q4 hours scheduled Continue antibiotics as above. May be more COPD exacerbation than pneumonia, however, given above complaints with continue empiric broad-spectrum antibiotics for now. (4) Physical deconditioning: Code(s): R53.81 - Other malaise Status: Acute Assessment and Plan: patient unable to transfer to and from wheelchair PT/OT consulted. TSH 1.4 Vit D 25-OH 50 B12 and folate within normal limits Venous doppler UE negative for DVT. Patient strongly encouraged to participate in therapy for return to prior level of functioning. Per patient's she was able to stand and transfer with minimal assistance from bed to wheelchair. But has been requiring max assistance was able to get patient to the commode with minimal assist (5) GERD (gastroesophageal reflux disease): Qualifiers: Esophagitis presence: without esophagitis Qualified Code(s): K21.9 - Gastro-esophageal reflux disease without esophagitis Code(s): K21.9 - Gastro-esophageal reflux disease without esophagitis Status: Chronic Assessment and Plan: ?10/31/22: Continue Protonix (6) Benign essential hypertension: Code(s): I10 - Essential (primary) hypertension Status: Chronic Assessment and Plan: Current BP is 139/53 Continue home medications Trend BP Adjust medications (7) Rectal pain: Code(s): K62.89 - Other specified diseases of anus and rectum Status: Acute Assessment and Plan: 03/01/22: P.r.n. rectal cream (8) Chronic anemia: Code(s): D64.9 - Anemia, unspecified Status: Acute Assessment and Plan: Chronic, stable. baseline H/H 9/30% H/H current 8.6/28.6 iron panel- low normal serum iron, high normal TIBC, sat 12%- will start iron supplement B12 and folate within normal limits Stable (9) Dermatitis: Code(s): L30.9 - Dermatitis, unspecified Status: Acute Assessment and Plan: BLE red and warm to touch. Tender. Patient reports this is chronic. Continue emollient after bathing. Improving. Patient is on antibiotics that would cover cellulitis. Continue to monitor. (10) New onset type 2 diabetes mellitus: Code(s): E11.9 - Type 2 diabetes mellitus without complications Status: Acute Assessment and Plan: Noted in prior records patient has new diagnosis of diabetes.
[2022-03-05] MEDS: ENOXAPARIN 40 MG/0.4 ML SYRINGE SUB-Q (09:05)
[2022-03-05] MEDS: CELECOXIB 200 MG CAPSULE PO (09:05)
[2022-03-05] MEDS: amLODIPine BESYLATE 5 MG TABLET PO (09:05)
[2022-03-05] MEDS: PANTOPRAZOLE 40 MG TABLET PO (09:05)
[2022-03-05] MEDS: OPTI-GEN TAB 1 TABLET PO (09:05)
[2022-03-05] MEDS: FERROUS SULFATE 324 MG TABLET PO (09:05)
[2022-03-05] MEDS: DICLOFENAC SODIUM 1% 100 GM GEL (*BKC) 1 APPLIC TOPICAL ×2 (09:06→13:26)
[2022-03-05 10:01] LABS: EDCOVIDSCREEN Negative (Negative)
[2022-03-05 11:41] LABS: Glucose Point of Care 211 mg/dl (65-105)
[2022-03-05] MEDS: INSULIN ASPART (*BKC) 100 UNITS/ML SUB-Q (13:26)
== END 2022-03-05 14:42 | DRG 190 ==
LOC: ANHED 20:38 → ANH3MEDSUR 22:11
PROVIDERS: Emergency Medicine; Nurse Practitioner; Nurse Practitioner Adult Health; Nurse Practitioner Family; Admitting Provider Internal Medicine; Emergency Provider Emergency Medicine; PCP Internal Medicine; Visit Provider Nurse Practitioner
DX: J44.0 Chronic obstructive pulmonary disease with (acute) lower respiratory infection (principal); J18.9 Pneumonia, unspecified organism; R78.81 Bacteremia; E87.1 Hypo-osmolality and hyponatremia; I50.32 Chronic diastolic (congestive) heart failure; J96.12 Chronic respiratory failure with hypercapnia; J96.11 Chronic respiratory failure with hypoxia; K51.90 Ulcerative colitis, unspecified, without complications; Z68.42 Body mass index [BMI] 45.0-49.9, adult; J44.1 Chronic obstructive pulmonary disease with (acute) exacerbation; I35.0 Nonrheumatic aortic (valve) stenosis; I11.0 Hypertensive heart disease with heart failure; I87.2 Venous insufficiency (chronic) (peripheral); E04.1 Nontoxic single thyroid nodule; E55.9 Vitamin D deficiency, unspecified; E11.9 Type 2 diabetes mellitus without complications; E66.01 Morbid (severe) obesity due to excess calories; D64.9 Anemia, unspecified; L30.9 Dermatitis, unspecified; K21.9 Gastro-esophageal reflux disease without esophagitis; K62.89 Other specified diseases of anus and rectum; B95.7 Other staphylococcus as the cause of diseases classified elsewhere; M54.9 Dorsalgia, unspecified; M75.01 Adhesive capsulitis of right shoulder; M25.562 Pain in left knee; M25.512 Pain in left shoulder; M25.511 Pain in right shoulder; G89.29 Other chronic pain; H26.9 Unspecified cataract; R53.81 Other malaise; R16.0 Hepatomegaly, not elsewhere classified; G47.33 Obstructive sleep apnea (adult) (pediatric); F32.A Depression, unspecified; Y95 Nosocomial condition; Z20.822 Contact with and (suspected) exposure to COVID-19; Z96.651 Presence of right artificial knee joint; Z87.891 Personal history of nicotine dependence; Z99.81 Dependence on supplemental oxygen
CPT/HCPCS: 36415; 36600; 51702; 71045; 71046; 71275; 80048; 80053; 80202; 81001; 82306; 82565; 82607; 82805; 82948; 83036; 83540; 83550; 83605; 83735; 83880; 84145; 84484; 85025; 85610; 87040; 87081; 87147; 87181; 87186; 87426; 87449; 87502; 87899; 93005; 93971; 94002; 94003; 94640; 97110; 97162; 97165; 97530; 97535; 99285; A9270; C9803; J0692; J1650; J1815; J1940; J2060; J2270; J2543; J2920; J3370; Q9967; U0003; U0005

== ENCOUNTER 2022-03-06 22:28 | Inpatient (IN) | payer MEDICARE, SELFPAY ==
--- NOTE | ~2022-03-06 | XR_ITS ---
EXAMINATION: XR chest 1V portable DATE: 03/08/2022 06:00 INDICATION: Pneumonia TECHNIQUE: frontal view of the chest was obtained. COMPARISON: Chest radiograph dated 03/07/2022 FINDINGS: Patient is rotated towards the left. Opacities in the left lower lung zone. Likely small left pleural effusion. No pneumothorax or right-sided pleural effusion. Heart size is normal. Partially visualize d bilateral vertical ignacio and pedicle screw fixation for posterior spinal fusion at the upper lumbar s pine. Severe bilateral glenohumeral osteoarthritis. IMPRESSION: 1. Opacities in the left lower lung zone consistent with small left pleural effusion and associated a telectasis and/or pneumonia. Reviewed, dictated and finalized at location A. GER INTEGRITY IMPRESSION: 1. Opacities in the left lower lung zone consistent with small left pleural eff usion and associated atelectasis and/or pneumonia.
--- NOTE | ~2022-03-06 | XR_ITS ---
EXAM: XR knee RT 2V, XR knee LT 2V DATE: 03/07/2022 18:23 HISTORY: BILATERAL GENERAL KNEE PAIN, NO INJURY . COMPARISON: 08/17/2017. FINDINGS: Right knee arthroplasty, without complication. Decreased mineralization. Nondisplaced righ t fibular head fracture. Increasing subchondral collapse in the lateral compartment of the left knee. No other fracture or dislocation. No lytic or blastic lesion. Severe left knee osteoarthritis. No er osion or periosteal change. Small right and moderate left knee joint effusions. IMPRESSION: Acute nondisplaced right fibular head fracture. Increased subchondral collapse in the lat eral compartment of the left knee, which may be acute or chronic, correlate with pain/tenderness. Reviewed, dictated and finalized at location K. TH CARE COORDINATOR IMPRESSION: Acute nondisplaced right fibular head fracture. Increased subchondr al collapse in the lateral compartment of the left knee, which may be acute or chronic, correlate with pain/tenderness.
--- NOTE | ~2022-03-06 | XR_ITS ---
XR chest 1V portable DATE: 03/07/2022 01:48 INDICATION: Dyspnea TECHNIQUE: Portable AP chest on 03/07/2022 0136 hours COMPARISON: 03/03/2022 CTA chest FINDINGS: There is left lower lobe infiltrate. The lungs otherwise appear clear. There is blunting of the left costophrenic angle suggesting mild left pleural effusion. Normal heart size. Aortic calcification. Severe osteoarthritic change at the glenohumeral joints. Osteopenia. Pedicle screws and rods at the lumbar spine. IMPRESSION: Left lower lobe infiltrate and mild left pleural effusion Reviewed, dictated and finalized at location A. COLOGIST
[2022-03-06 22:29] VITALS: BP 211/93; PULSE 119; RESP 22; TEMP 37.1; O2SAT 100
[2022-03-06 22:50] VITALS: O2SAT 99
--- NOTE | 2022-03-06 22:55 | ECG_ITS ---
Measurements Intervals [place] Rate: 96 P: 86 OK: 160 QRS: 42 QRSD: 90 T: 67 QT: 309 QTc: 391 Interpretive Statements SINUS RHYTHM VENTRICULAR PREMATURE COMPLEXES BASELINE WANDER- I, II, III, AVR, AVL, AVF, V1-V2, V4-V6 BORDERLINE ECG COMPARED TO ECG 02/25/2022 18:56:28 NO SIGNIFICANT CHANGES Electronically Signed On 03-07-2022 7:21:09 WRAPPER CASHIER by Moiz Melton D.O.
--- NOTE | 2022-03-06 22:58 | ED.GENADULT ---
HPI - General Adult General Chief complaint: Shortness of Breath/Dyspnea Stated complaint: fever short of breath Time Seen by Provider: 03/06/22 22:54 History of Present Illness HPI narrative: This is an 81-year-old female with chronic respiratory failure presenting ED with shortness of breath. Patient was 90% on her home oxygen 4 L. Additionally EMS found her to be febrile to 102. When they 1st picked her up she was given a nebulizer treatment which helped improve her oxygenation. Patient was discharged from the hospital yesterday after being admitted for pneumonia and positive blood cultures. Related Data Home Medications Medication Instructions Recorded Confirmed vit C 250 mg-vit E 90 mg-zinc 40 1 tablet PO BID 07/12/19 02/25/22 mg-copper 1 [id number] capsule (PreserVision AREDS-2) hydroxyzine HCl 25 mg tablet 25 mg PO HS PRN Anxiety 11/22/21 02/25/22 zolpidem 5 mg tablet 5 mg PO HS 11/22/21 02/25/22 tiotropium bromide 18 mcg capsule 1 cap inhalation DAILY 02/06/22 02/25/22 with inhalation device (Spiriva with HandiHaler) albuterol sulfate 2.5 mg/3 mL 2.5 mg inhalation TID 02/25/22 02/25/22 (0.083 %) solution for nebulization ibuprofen 200 mg tablet 600 mg PO Q8H PRN Pain (Scale 02/25/22 02/25/22 Score 1-3) lidocaine 4 % topical cream 1 applic topical TID PRN 02/25/22 02/25/22 Hemorrhoids polyethylene glycol 3350 17 gram 17 g PO DAILY 02/25/22 02/25/22 oral powder packet (Miralax) Allergies Allergy/AdvReac Type Severity Reaction Status Date / Time Sulfa (Sulfonamide Allergy Unknown THROAT, Verified 03/06/22 23:37 Antibiotics) TONGUE SWELLING,Unknown,THROAT, TONGUE SWELLING,Unkn hydralazine AdvReac Chest Pain Verified 03/06/22 23:37 Review of Systems Review of Systems: CONSTITUTIONAL: Denies night sweats. EYES: No eye pain ENT: Denies rhinorrhea CARDIOVASCULAR: Denies palpitations RESPIRATORY: Denies hemoptysis GASTROINTESTINAL: Denies hematemesis GENITOURINARY: Denies hematuria. SKIN: Denies rash MUSCULOSKELETAL: Denies myalgia. NEUROLOGIC: Denies weakness. PSYCHIATRIC: Denies delusions [facility] Past Medical History Medical History (Updated 03/07/22 @ 01:01 ANTIQUER by Javier Best MD) Abdominal bruit Renal US negative for stenosis 08/2019. Adhesive capsulitis of right shoulder Aortic stenosis Mild on echocardiogram from October 2018. Borderline diabetic The patient stated she is not taking anything for her diabetes and she is not diabetic. Cataracts, bilateral Maturing cataracts bilaterally. Chronic diastolic (congestive) heart failure (Unknown) Echocardiogram October 2018 demonstrated normal left ventricular systolic function with EF of 65-70% grade 1 diastolic dysfunction mild aortic stenosis with a normal RVSP of 34. Chronic hyponatremia Chronic pain syndrome With chronic back, bilateral shoulder, and left knee pain. Chronic respiratory failure with hypoxia and hypercapnia COPD with emphysema Dependence on supplemental oxygen On 3 liters nasal cannula. Depression Diastolic dysfunction Essential (primary) hypertension (Unknown) Fractured coccyx Gastroesophageal reflux disease History of angina History of tobacco abuse Insomnia Liver mass 21 mm likely benign noted on imaging for 2017. Obstructive sleep apnea Noncompliant with Trilogy NPPV at home. Thyroid nodule On CT scan from July 2017. Ulcerative colitis Venous stasis dermatitis of both lower extremities Vitamin D deficiency Surgical History Surgical History History of arthroscopy of left knee (~2000) History of lumbar surgery (~2001) History of tonsillectomy History of total right knee replacement (~01/2012) History of ventral hernia repair With abdominoplasty. Family History Family History Mother Diabetes mellitus Father COPD (chronic obstructive pulmonar
[2022-03-06 23:08] LABS: Basophils Percent Auto 0.3 % (0.2-1.2); Eosinophils Absolute Auto 0.1 K/mm3 (0-0.3); Eosinophils Percent Auto 0.7 % (0-4.4); Hematocrit 30.2 % (37.0-47.0); Hemoglobin 8.8 g/dL (12.0-15.0); Immature Granulocyte Absolute 0.39 K/mm3 (0.00-0.031); Immature Granulocyte Percent A 4.1 % (0-0.5); Lymphocytes Absolute Auto 1.02 K/mm3 (0.9-3.2); Lymphocytes Percent Auto 10.7 % (18.3-44.2); Mean Corpuscular HGB Conc 29.1 g/dl (32-36); Mean Corpuscular Hemoglobin 25.7 pg (26-34); Mean Corpuscular Volume 88.3 fl (80-100); Mean Platelet Volume 9.4 fl (7.4-10.4); Monocytes Absolute Auto 1.4 K/mm3 (0.1-0.6); Monocytes Percent Auto 15.2 % (2.6-8.5); Neutrophils Absolute Auto 6.5 K/mm3 (1.3-6.7); Platelet Count Result 580 k/mm3 (150-375); Red Blood Count 3.42 M/mm3 (4.2-5.4); Red Cell Distribution Width 15.3 % (11.5-14.5); White Blood Count 9.5 K/mm3 (4.5-10.0)
[2022-03-06 23:13] LABS: Glucose Point of Care 194 mg/dl (65-105)
[2022-03-06 23:18] LABS: INR 0.9; Prothrombin Time 12.2 Seconds (11.1-14.7)
[2022-03-06 23:19] LABS: Alanine Aminotransferase 56 U/L (6-35); Albumin Level 3.6 g/dL (3.5-5.1); Alkaline Phosphatase 64 U/L (38-126); Aspartate Amino Transferase 31 U/L (14-36); Bilirubin,Total 0.3 mg/dL (0.2-1.3); Blood Urea Nitrogen 32 mg/dL (7-17); Carbon Dioxide > 40 mmol/L (22-30); Chloride 90 mmol/L (98-107); Estimated CRCL calculation 63 ml/min; Estimated Glomerular Filt Rate > 60; Glucose 183 mg/dL (65-110); Lipase 49 U/L (23-300); Magnesium 2.2 mg/dL (1.6-2.3); Partial Thromboplastin Time 25.4 SECONDS (22.3-36.8); Potassium 4.4 mmol/L (3.4-5.0); Sodium 136 mmol/L (137-145)
[2022-03-06 23:28] LABS: NT Pro B Type Natriuretic Pept 682 pg/mL (5-100)
[2022-03-06 23:31] VITALS: PULSE 95; RESP 21; O2SAT 100
[2022-03-06 23:31] LABS: Troponin I < 0.012 ng/mL (0.000-0.034)
[2022-03-06 23:37] VITALS: PULSE 94
[2022-03-06 23:38] LABS: Appearance Urine Clear (Clear); Bilirubin Urine Negative (Negative); Blood Urine Negative (Negative); Color Urine Yellow (Yellow); Glucose Urine UA Negative (Negative); Ketones Urine Negative (Negative); Leukocyte Esterase Ur Negative LEU/UL (Negative); Nitrate Urine Negative (Negative); Protein Urine 2+ mg/dL (Negative); Urobilinogen Urine 0.2 mg/dL (<2.0)
[2022-03-06 23:39] LABS: Fractional Inspired Oxygen 36 %; HCO3 VBG 36.5 mEq/l (24.0-30.0); PO2 VBG 37.3 mmHg (35.0-45.0); pH VBG 7.336 (7.300-7.400)
[2022-03-06 23:41] LABS: Mucus Urine Rare /lpf; RBC Urine 0-2 /hpf (0-2); Squamous Epithelial Cell Urine Rare /hpf (Few); WBC Urine 0-3 /hpf
[2022-03-06 23:43] LABS: Device NASAL CANNULA
[2022-03-06 23:44] LABS: Hypochromasia 1+ (NORMAL); Platelet Estimate Adequate (Adequate)
[2022-03-06 23:45] LABS: PCO2 VBG 69.9 mmHg (42.0-48.0)
[2022-03-06] MEDS: methylPREDNISolone SOD SUCC 125 MG VIAL IV PUSH (23:46)
[2022-03-06 23:50] LABS: Influenza A QL RT-PCR Negative (Negative); Influenza B QL RT-PCR Negative (Negative); SARS-CoV-2 RNA PCR Negative
[2022-03-07] VITALS (25 sets, daily range): BP systolic 136–188; BP diastolic 62–87; PULSE 80–97; RESP 17–27; TEMP 36.4–37; O2SAT 94–100; BMI 37.9; BMI 37.5
[2022-03-07 00:14] LABS: Add Urine Microscopic? YES
[2022-03-07] MEDS: IPRATROPIUM BR 0.02% INH SOLN 0.5 MG/2.5 ML VIAL 1.5 MG INHALATION (00:24)
[2022-03-07] MEDS: ALBUTEROL SULFATE NEB 2.5 MG/3 ML INH 15 MG INHALATION (00:24)
--- NOTE | 2022-03-07 01:06 | PC.NURSE ---
Pt here during seasonal time change. Times may be repeated.
--- NOTE | 2022-03-07 01:10 | PM.IMHP ---
H&P: HPI History of Present Illness Date/Time: 03/07/22 01:10 Chief Complaint: shortness of breath Narrative: This is an 81-year-old female with past medical history significant for chronic hypoxic hypercarbic respiratory failure on supplemental oxygen at home, COPD/emphysema, aortic stenosis, diastolic heart failure, chronic pain syndrome, chronic hyponatremia, gastroesophageal reflux disease, patient just discharged from the hospital was treated for lung infiltrates however patient returns today due to worsening shortness of breath. At the time of my visit patient is on BiPAP unable to provide any history has been mainly obtained upon reviewing medical records. Review of Systems Review of Systems: ROS unobtainable: Yes unobtainable due to medical condition ( respiratory failure on BiPAP) [facility] Past Medical History Medical History (Updated 03/07/22 @ 01:01 SENIOR INFRASTRUCTURE ARCHITECT by Javier Best MD) Abdominal bruit Renal US negative for stenosis 08/2019. Adhesive capsulitis of right shoulder Aortic stenosis Mild on echocardiogram from October 2018. Borderline diabetic The patient stated she is not taking anything for her diabetes and she is not diabetic. Cataracts, bilateral Maturing cataracts bilaterally. Chronic diastolic (congestive) heart failure (Unknown) Echocardiogram October 2018 demonstrated normal left ventricular systolic function with EF of 65-70% grade 1 diastolic dysfunction mild aortic stenosis with a normal RVSP of 34. Chronic hyponatremia Chronic pain syndrome With chronic back, bilateral shoulder, and left knee pain. Chronic respiratory failure with hypoxia and hypercapnia COPD with emphysema Dependence on supplemental oxygen On 3 liters nasal cannula. Depression Diastolic dysfunction Essential (primary) hypertension (Unknown) Fractured coccyx Gastroesophageal reflux disease History of angina History of tobacco abuse Insomnia Liver mass 21 mm likely benign noted on imaging for 2017. Obstructive sleep apnea Noncompliant with Trilogy NPPV at home. Thyroid nodule On CT scan from July 2017. Ulcerative colitis Venous stasis dermatitis of both lower extremities Vitamin D deficiency Surgical History Surgical History History of arthroscopy of left knee (~2000) History of lumbar surgery (~2001) History of tonsillectomy History of total right knee replacement (~01/2012) History of ventral hernia repair With abdominoplasty. Family History Family History Mother Diabetes mellitus Father COPD (chronic obstructive pulmonary disease) Social History Social History Social History: The patient lives at home with her of 60+ years. 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 She has a 50 pack year smoking history and quit in 2007. No alcohol or illicit substance use. She mostly uses a wheelchair now. Surrogate medical decision maker: Yamil Wayne, spouse. Code status: Full code. She would not however want to be on long-term life support. Smoking packs per day: 1 Smoking cigarettes per day: 20.0 Years smoked: 49 Smoking pack-years: 49.00 Smoking status: Former smoker Tobacco type: cigarettes Second hand tobacco smoke exposure: No Alcohol intake: never Substance use: never Substance use type: does not use Has the Lack of Transportation Kept You From Medical Appointments or From Getting Medications?: No Within the Past 12 Months, Were You Worried Whether Your Food Would Run Out Before You Got Money to Buy More?: Never True What is Your Housing Situation Today?: I Have Housing Are You Worried That in the Next 2 Months, You May Not Have Your Own Housing to Live In?: No Do You Have Trouble Paying Your Heating Or Electricity Bill?: No Do You Have Trouble Paying For Medicines?: No Are You Currentl
--- NOTE | 2022-03-07 01:13 | PC.NURSE ---
Pt refusing repeated BP at this time. Nurse explained we need BP at this time and explain risks of HTN, pt responded with so be it. get away from me.
--- NOTE | 2022-03-07 02:16 | ADMGEN ---
This patient, Belinda Black, was admitted to IMU Room 204-01 AT 0216. Patient/family oriented to hospital policies and general routines including ID bracelet, bed and alarms, visiting hours, pain management, procedures, bathroom and other care routines, personal items, smoking policy, room service/diet, and visiting hours. Information on how to activate the Rapid Response Team has been discussed. Patient/Family are encouraged to report perceived risks to care and to ask questions if they do not understand what they are told or what they should do.
[2022-03-07 05:58] LABS: Troponin I < 0.012 ng/mL (0.000-0.034)
[2022-03-07] MEDS: BENZOCAINE 20% HEMORRHOIDAL OINTMENT 28 GM 1 APPLIC TOPICAL (06:44)
[2022-03-07] MEDS: ALBUTEROL SULFATE NEB 2.5 MG/3 ML INH INHALATION ×2 (08:00→20:15)
[2022-03-07] MEDS: FLUTICASONE/SALMETEROL 115-21 MCG INHALER 1 PUFF 2 PUFF INHALATION ×2 (08:00→20:16)
[2022-03-07] MEDS: UMECLIDINIUM BROMIDE 62.5 MCG ELLIPTA 1 PUFF INHALATION (08:55)
[2022-03-07] MEDS: FERROUS SULFATE 324 MG TABLET PO ×2 (08:56→16:46)
[2022-03-07] MEDS: predniSONE 20 MG TABLET 40 MG BY MOUTH (08:56)
[2022-03-07] MEDS: PANTOPRAZOLE 40 MG TABLET PO (08:57)
[2022-03-07] MEDS: amLODIPine BESYLATE 5 MG TABLET PO (08:57)
[2022-03-07] MEDS: OPTI-GEN TAB 1 TABLET PO ×2 (08:57→16:46)
[2022-03-07] MEDS: polyethylene glycoL 3350 17 GM POWD.PACK PO (08:57)
[2022-03-07] MEDS: oxyCODONE/ACETAMINOPHEN (*CRX) 10-325 MG TABLET 1 TAB PO ×3 (10:42→21:13)
[2022-03-07] MEDS: ALPRAZolam (*CRX) 0.125 MG TABLET PO ×2 (17:26→21:13)
[2022-03-07 17:53] LABS: Alveolar/Arterial O2 Gradient 39.8 mmHg; Base Excess ABG 9.2 mEq/l (+/-2.0); Fractional Inspired Oxygen 32 %; HCO3 ABG 35.6 mEq/l (22.0-26.0); Oxygen Content ABG 12.6 %vol (16.0-22.0); Oxygen Saturation ABG 98.1 % (95.0-100.0); PO2 ABG 117.8 mmHg (80.0-100.0); PO2 FiO2 Ratio Arterial Blood 3.68 %; Total Hemoglobin 9.1 g/dL (12.0-18.0); pH ABG 7.389 (7.350-7.450)
[2022-03-07 17:57] LABS: Device NASAL CANNULA; Modified Allen's Test Pass; PCO2 ABG 60.3 mmHg (35.0-45.0); Site Drawn LEFT RADIAL
[2022-03-07] MEDS: SENNA/DOCUSATE SODIUM TABLET 2 TAB PO (21:12)
[2022-03-08] VITALS (17 sets, daily range): BP systolic 130–156; BP diastolic 54–75; PULSE 77–89; RESP 15–24; TEMP 36.2–36.7; O2SAT 97–100
[2022-03-08 06:38] LABS: Basophils Percent Auto 0.2 % (0.2-1.2); Eosinophils Absolute Auto 0.1 K/mm3 (0-0.3); Eosinophils Percent Auto 1.6 % (0-4.4); Hematocrit 27.2 % (37.0-47.0); Hemoglobin 8.2 g/dL (12.0-15.0); Immature Granulocyte Absolute 0.51 K/mm3 (0.00-0.031); Immature Granulocyte Percent A 5.7 % (0-0.5); Lymphocytes Absolute Auto 1.23 K/mm3 (0.9-3.2); Lymphocytes Percent Auto 13.7 % (18.3-44.2); Mean Corpuscular HGB Conc 30.1 g/dl (32-36); Mean Corpuscular Hemoglobin 26.5 pg (26-34); Mean Corpuscular Volume 87.7 fl (80-100); Mean Platelet Volume 9.4 fl (7.4-10.4); Monocytes Absolute Auto 1.6 K/mm3 (0.1-0.6); Monocytes Percent Auto 17.2 % (2.6-8.5); Neutrophils Absolute Auto 5.5 K/mm3 (1.3-6.7); Neutrophils Percent Auto 61.6 % (45.5-73.1); Platelet Count Result 459 k/mm3 (150-375); Red Cell Distribution Width 15.2 % (11.5-14.5)
[2022-03-08 06:47] LABS: Anion Gap 3 mmol/L (8-16); Blood Urea Nitrogen 25 mg/dL (7-17); Carbon Dioxide 37 mmol/L (22-30); Chloride 89 mmol/L (98-107); Estimated CRCL calculation 66 ml/min; Estimated Glomerular Filt Rate > 60; Glucose 101 mg/dL (65-110); Potassium 4.1 mmol/L (3.4-5.0); Sodium 129 mmol/L (137-145)
[2022-03-08 06:51] LABS: NT Pro B Type Natriuretic Pept 716 pg/mL (5-100)
[2022-03-08] MEDS: oxyCODONE/ACETAMINOPHEN (*CRX) 10-325 MG TABLET 1 TAB PO ×2 (07:09→17:31)
[2022-03-08] MEDS: FLUTICASONE/SALMETEROL 115-21 MCG INHALER 1 PUFF 2 PUFF INHALATION ×2 (08:07→19:47)
[2022-03-08] MEDS: ALBUTEROL SULFATE NEB 2.5 MG/3 ML INH INHALATION ×2 (08:07→19:46)
[2022-03-08] MEDS: UMECLIDINIUM BROMIDE 62.5 MCG ELLIPTA 1 PUFF INHALATION (08:07)
[2022-03-08] MEDS: ALPRAZolam (*CRX) 0.125 MG TABLET PO ×2 (10:24→17:31)
[2022-03-08] MEDS: amLODIPine BESYLATE 5 MG TABLET PO (10:24)
[2022-03-08] MEDS: PANTOPRAZOLE 40 MG TABLET PO (10:25)
[2022-03-08] MEDS: OPTI-GEN TAB 1 TABLET PO ×2 (10:25→16:55)
[2022-03-08] MEDS: predniSONE 20 MG TABLET 40 MG BY MOUTH (10:26)
[2022-03-08] MEDS: FERROUS SULFATE 324 MG TABLET PO ×2 (10:26→16:55)
--- NOTE | 2022-03-08 11:43 | PM.IMPN ---
Progress Note: A&P Assessment and Plan (1) HCAP (healthcare-associated pneumonia): Code(s): J18.9 - Pneumonia, unspecified organism Status: Acute Assessment and Plan: chest x-ray reviewed will continue empiric antibiotics with cefepime and vancomycin cultures in progress (2) Physical deconditioning: Code(s): R53.81 - Other malaise Status: Acute Assessment and Plan: secondary to chronic illness (3) Acute on chronic respiratory failure with hypoxia and hypercapnia: Code(s): J96.21 - Acute and chronic respiratory failure with hypoxia; J96.22 - Acute and chronic respiratory failure with hypercapnia Status: Acute Assessment and Plan: currently on BiPAP (4) COPD (chronic obstructive pulmonary disease): Code(s): J44.9 - Chronic obstructive pulmonary disease, unspecified Status: Acute Assessment and Plan: a scheduled breathing treatment not actively wheezing (5) GERD (gastroesophageal reflux disease): Qualifiers: Esophagitis presence: without esophagitis Qualified Code(s): K21.9 - Gastro-esophageal reflux disease without esophagitis Code(s): K21.9 - Gastro-esophageal reflux disease without esophagitis Status: Chronic Assessment and Plan: PPI as needed (6) Morbid obesity with BMI of 45.0-49.9, adult: Code(s): E66.01 - Morbid (severe) obesity due to excess calories; Z68.42 - Body mass index [BMI] 45.0-49.9, adult Status: Chronic Assessment and Plan: lifestyle and diet modifications (7) Venous stasis ulcer: Code(s): I83.009 - Varicose veins of unspecified lower extremity with ulcer of unspecified site; L97.909 - Non-pressure chronic ulcer of unspecified part of unspecified lower leg with unspecified severity Status: Acute Assessment and Plan: compression stockings (8) Chronic diastolic (congestive) heart failure: Onset Date: Unknown Code(s): I50.32 - Chronic diastolic (congestive) heart failure Status: Chronic Assessment and Plan: BNP only slightly elevated noted to be alkalotic will hold off diuresis (9) Obstructive sleep apnea: Onset Date: Unknown Code(s): G47.33 - Obstructive sleep apnea (adult) (pediatric) Status: Chronic Assessment and Plan: noncompliance with CPAP at nighttime (10) Chronic pain syndrome: Code(s): G89.4 - Chronic pain syndrome Status: Acute Assessment and Plan: Tylenol as needed (11) Closed fibular fracture: Code(s): S82.409A - Unspecified fracture of shaft of unspecified fibula, initial encounter for closed fracture Status: Acute Assessment and Plan: ortho consult likely nothing to offer - await ortho eval waiting for ok for pt/ot Subjective Date/time seen: 03/08/22 11:44 doing better pain in knee area better as well Exam Narrative: patient is laying in a stretcher Const: General: no acute distress, well developed, ill appearing chronically, patient obtunded, average body habitus, overweight and other ( on BiPAP) Nutritional Appearance: average body habitus and overweight Orientation/consciousness: patient oriented x3 and patient obtunded HENMT: Head: normal to inspection, normocephalic and atraumatic Ears: hearing grossly normal bilaterally Face/Nose/Sinus: normal facial exam Face and sinus: normal facial exam Other: BiPAP mask on Eyes: General: appearance normal, both eyes and all related structures Pupils: Equal, round and reactive pupils present EOM: EOMs intact bilaterally Neck: Neck: full ROM, no lymphadenopathy and no JVD Thyroid: thyroid normal Lymphatic: no lymphadenopathy noted Resp: Effort & Inspection: normal respiratory effort, able to speak in complete sentences, no nasal flaring, no segmental paradox chest wall movement, not tachypneic, no tripod positioning and no use of accessory muscles Auscultation: diminished
--- NOTE | 2022-03-08 13:26 | PM.CNOR ---
Assessment and Plan Assessment and plan (1) Closed fibular fracture: Qualifiers: Encounter type: initial encounter Fibula location: proximal Laterality: right Fracture morphology: other fracture Qualified Code(s): S82.831A - Other fracture of upper and lower end of right fibula, initial encounter for closed fracture Code(s): S82.409A - Unspecified fracture of shaft of unspecified fibula, initial encounter for closed fracture Status: Acute Assessment and Plan: History, exam radiographs reviewed patient. Radiographs of the right knee reveal a cook and acute nondisplaced right fibular head fracture as well as increased subchondral collapse in the lateral compartment of the left knee. Patient does have lateral-sided knee pain. Poor historian regards to nature onset of pain. The fracture type and injury as well as radiographs discussed with the patient and family. Operative and nonoperative treatment options reviewed. Recommended non operative treatment. Risk of nonunion, malunion or late displacement discussed. Stiffness, pain and possible dysfunction of the joint discussed. Fracture precautions and activity restrictions reviewed. The patient verbalizes understanding. Recommend knee immobilizer. Weightbearing as tolerated. Ice knee. Pain control. Okay to remove knee immobilizer for hygeine purposes. Dispo: SNF when medically stable. PT/OT. Will arrange outpatient follow up for repeat radiographs in 6 weeks. (2) S/P total knee arthroplasty: Code(s): Z96.659 - Presence of unspecified artificial knee joint Status: Acute Plan Reviewed assessment, radiographs and history with attending physician, Dr. Real. Agrees with current plan as detailed above. No further recommendations at this time. History of Present Illness HPI Consult date: 03/08/22 Consult reason: fracture Chief complaint: COPD/PNA Narrative: 81 year old female readmitted to [facility] after recent hospitalization for PNA. Patient with complaints of right knee pain. Unknown etiology. Patient is confused regarding history of knee pain. She does give a story of three people falling on top of her during a transport. She is somewhat confused to situation and place however. Radiographs of the right knee reveal an acute nondisplaced right fibular head fracture. There is also increased subchondral collapse in the lateral compartment of the left knee, which may be acute or chronic. History of right TKA. Orthopedic consult requested. Review of Systems Review of Systems: All systems reviewed & are unremarkable except as noted in HPI and below (HPI ) ROS unobtainable: Yes unobtainable due to mental status (poor historian ) Constitutional: Constitutional: Reports other (generally feels sad and miserable . Everything hurts ) [facility] Past Medical History Medical History (Updated 03/08/22 @ 14:28 by YONI Bhatia) Abdominal bruit Renal US negative for stenosis 08/2019. Adhesive capsulitis of right shoulder Aortic stenosis Mild on echocardiogram from October 2018. Borderline diabetic The patient stated she is not taking anything for her diabetes and she is not diabetic. Cataracts, bilateral Maturing cataracts bilaterally. Chronic diastolic (congestive) heart failure (Unknown) Echocardiogram October 2018 demonstrated normal left ventricular systolic function with EF of 65-70% grade 1 diastolic dysfunction mild aortic stenosis with a normal RVSP of 34. Chronic hyponatremia Chronic pain syndrome With chronic back, bilateral shoulder, and left knee pain. Chronic respiratory failure with hypoxia and hypercapnia COPD with emphysema Dependence on supplemental oxygen On 3 liters nasal cannula. Depression Diastolic dysfunction Essential (primary) hypertension (Unknown) Fractured coccyx Gastroesophageal reflux disease History of angina History of tobacco abuse Insomnia Liver mass 21 mm likely benign noted on imaging for 201
--- NOTE | 2022-03-08 14:18 | PCPTNOTE ---
Attempted PT eval. Pt refused stating I can't breathe. O2 saturation 98%. RN aware. Will follow.
[2022-03-08] MEDS: BENZOCAINE 20% HEMORRHOIDAL OINTMENT 28 GM 1 APPLIC TOPICAL (17:29)
[2022-03-08] MEDS: hydrOXYzine HCL 25 MG TABLET PO (20:51)
[2022-03-09] VITALS (15 sets, daily range): BP systolic 148–162; BP diastolic 60–85; PULSE 68–89; RESP 12–22; TEMP 36.1–36.6; O2SAT 74–100
[2022-03-09] MEDS: oxyCODONE/ACETAMINOPHEN (*CRX) 10-325 MG TABLET 1 TAB PO ×3 (03:27→19:08)
[2022-03-09] MEDS: ALPRAZolam (*CRX) 0.125 MG TABLET PO ×3 (03:28→19:08)
[2022-03-09 05:30] LABS: Vancomycin Trough 20.3 ug/mL (10.0-20.0)
[2022-03-09] MEDS: UMECLIDINIUM BROMIDE 62.5 MCG ELLIPTA 1 PUFF INHALATION (07:32)
[2022-03-09] MEDS: ALBUTEROL SULFATE NEB 2.5 MG/3 ML INH INHALATION ×2 (07:32→19:12)
[2022-03-09] MEDS: FLUTICASONE/SALMETEROL 115-21 MCG INHALER 1 PUFF 2 PUFF INHALATION ×2 (07:32→19:12)
[2022-03-09 08:11] LABS: Basophils Percent Auto 0.2 % (0.2-1.2); Eosinophils Absolute Auto 0.1 K/mm3 (0-0.3); Eosinophils Percent Auto 0.9 % (0-4.4); Hematocrit 27.2 % (37.0-47.0); Hemoglobin 8.1 g/dL (12.0-15.0); Immature Granulocyte Absolute 0.47 K/mm3 (0.00-0.031); Immature Granulocyte Percent A 5.5 % (0-0.5); Lymphocytes Absolute Auto 1.09 K/mm3 (0.9-3.2); Lymphocytes Percent Auto 12.7 % (18.3-44.2); Mean Corpuscular HGB Conc 29.8 g/dl (32-36); Mean Corpuscular Volume 87.5 fl (80-100); Mean Platelet Volume 9.8 fl (7.4-10.4); Monocytes Absolute Auto 1.2 K/mm3 (0.1-0.6); Monocytes Percent Auto 14.3 % (2.6-8.5); Neutrophils Absolute Auto 5.7 K/mm3 (1.3-6.7); Neutrophils Percent Auto 66.4 % (45.5-73.1); Platelet Count Result 455 k/mm3 (150-375); Red Blood Count 3.11 M/mm3 (4.2-5.4); Red Cell Distribution Width 15.2 % (11.5-14.5); White Blood Count 8.6 K/mm3 (4.5-10.0)
[2022-03-09 08:22] LABS: Anion Gap 5 mmol/L (8-16); Blood Urea Nitrogen 24 mg/dL (7-17); Carbon Dioxide 38 mmol/L (22-30); Chloride 88 mmol/L (98-107); Estimated CRCL calculation 78 ml/min; Estimated Glomerular Filt Rate > 60; Glucose 145 mg/dL (65-110); Potassium 4.2 mmol/L (3.4-5.0); Sodium 131 mmol/L (137-145)
[2022-03-09 09:15] LABS: Anisocytosis 1+ (NORMAL); Ovalocytes 1+ (NORMAL); Platelet Estimate Adequate (Adequate)
[2022-03-09 09:16] LABS: Schistocytes None Seen (NORMAL); Stomatocytes 1+ (NORMAL)
[2022-03-09] MEDS: OPTI-GEN TAB 1 TABLET PO ×2 (09:22→19:10)
[2022-03-09] MEDS: FERROUS SULFATE 324 MG TABLET PO ×2 (09:22→19:10)
[2022-03-09] MEDS: PANTOPRAZOLE 40 MG TABLET PO (09:22)
[2022-03-09] MEDS: amLODIPine BESYLATE 5 MG TABLET PO (09:23)
[2022-03-09] MEDS: predniSONE 10 MG TABLET 30 MG PO (09:23)
--- NOTE | 2022-03-09 11:23 | PM.IMPN ---
Progress Note: A&P Assessment and Plan (1) HCAP (healthcare-associated pneumonia): Code(s): J18.9 - Pneumonia, unspecified organism Status: Acute Assessment and Plan: chest x-ray reviewed will continue empiric antibiotics with cefepime and vancomycin cultures in progress (2) Physical deconditioning: Code(s): R53.81 - Other malaise Status: Acute Assessment and Plan: secondary to chronic illness (3) Acute on chronic respiratory failure with hypoxia and hypercapnia: Code(s): J96.21 - Acute and chronic respiratory failure with hypoxia; J96.22 - Acute and chronic respiratory failure with hypercapnia Status: Acute Assessment and Plan: currently on BiPAP at night oxygen during the day (4) COPD (chronic obstructive pulmonary disease): Code(s): J44.9 - Chronic obstructive pulmonary disease, unspecified Status: Acute Assessment and Plan: a scheduled breathing treatment a little more wheeze today. Continue prednisone taper (5) GERD (gastroesophageal reflux disease): Qualifiers: Esophagitis presence: without esophagitis Qualified Code(s): K21.9 - Gastro-esophageal reflux disease without esophagitis Code(s): K21.9 - Gastro-esophageal reflux disease without esophagitis Status: Chronic Assessment and Plan: PPI as needed (6) Morbid obesity with BMI of 45.0-49.9, adult: Code(s): E66.01 - Morbid (severe) obesity due to excess calories; Z68.42 - Body mass index [BMI] 45.0-49.9, adult Status: Chronic Assessment and Plan: lifestyle and diet modifications (7) Venous stasis ulcer: Code(s): I83.009 - Varicose veins of unspecified lower extremity with ulcer of unspecified site; L97.909 - Non-pressure chronic ulcer of unspecified part of unspecified lower leg with unspecified severity Status: Acute Assessment and Plan: compression stockings (8) Chronic diastolic (congestive) heart failure: Onset Date: Unknown Code(s): I50.32 - Chronic diastolic (congestive) heart failure Status: Chronic Assessment and Plan: appears to be euvolemic. (9) Obstructive sleep apnea: Onset Date: Unknown Code(s): G47.33 - Obstructive sleep apnea (adult) (pediatric) Status: Chronic Assessment and Plan: noncompliance with CPAP at nighttime (10) Chronic pain syndrome: Code(s): G89.4 - Chronic pain syndrome Status: Acute Assessment and Plan: Tylenol as needed (11) Closed fibular fracture: Qualifiers: Encounter type: initial encounter Fibula location: proximal Fracture morphology: other fracture Laterality: right Qualified Code(s): S82.831A - Other fracture of upper and lower end of right fibula, initial encounter for closed fracture Code(s): S82.409A - Unspecified fracture of shaft of unspecified fibula, initial encounter for closed fracture Status: Acute Assessment and Plan: Appreciate Ortho inpu t. No surgical plan knee immobilizer Subjective Date/time seen: 03/09/22 11:23 Patient still complaining of knee pain. Otherwise she is a little more short of breath today. Denies any chest pain Exam Const: General: no acute distress, well developed, ill appearing chronically, patient obtunded, average body habitus, overweight and other ( on BiPAP) Nutritional Appearance: average body habitus and overweight Orientation/consciousness: patient oriented x3 and patient obtunded HENMT: Head: normal to inspection, normocephalic and atraumatic Ears: hearing grossly normal bilaterally Face/Nose/Sinus: normal facial exam Face and sinus: normal facial exam Other: BiPAP mask on Eyes: General: appearance normal, both eyes and all related structures Pupils: Equal, round and reactive pupils present EOM: EOMs intact bilaterally Neck: Neck: full ROM, no lymphadenopathy and no JVD Thyroid: thyroid norm
[2022-03-10] VITALS (13 sets, daily range): BP systolic 147–175; BP diastolic 42–94; PULSE 71–94; RESP 12–23; TEMP 36.1–36.9; O2SAT 96–100
[2022-03-10] MEDS: oxyCODONE/ACETAMINOPHEN (*CRX) 10-325 MG TABLET 1 TAB PO ×3 (03:30→21:09)
[2022-03-10] MEDS: ALPRAZolam (*CRX) 0.125 MG TABLET PO (03:31)
[2022-03-10 06:41] LABS: Estimated CRCL calculation 78 ml/min; Estimated Glomerular Filt Rate > 60
[2022-03-10] MEDS: amLODIPine BESYLATE 5 MG TABLET PO (08:48)
[2022-03-10] MEDS: FERROUS SULFATE 324 MG TABLET PO ×2 (08:48→16:17)
--- NOTE | 2022-03-10 08:48 | PM.IMPN ---
Progress Note: A&P Assessment and Plan (1) HCAP (healthcare-associated pneumonia): Code(s): J18.9 - Pneumonia, unspecified organism Status: Acute Assessment and Plan: do not suspect pneumonia, will discontinue antibiotics and observe off antibiotics tomorrow (2) Physical deconditioning: Code(s): R53.81 - Other malaise Status: Acute Assessment and Plan: secondary to chronic illness (3) Acute on chronic respiratory failure with hypoxia and hypercapnia: Code(s): J96.21 - Acute and chronic respiratory failure with hypoxia; J96.22 - Acute and chronic respiratory failure with hypercapnia Status: Acute Assessment and Plan: currently on BiPAP at night oxygen during the day (4) COPD (chronic obstructive pulmonary disease): Code(s): J44.9 - Chronic obstructive pulmonary disease, unspecified Status: Acute Assessment and Plan: continue prednisone, stable (5) GERD (gastroesophageal reflux disease): Qualifiers: Esophagitis presence: without esophagitis Qualified Code(s): K21.9 - Gastro-esophageal reflux disease without esophagitis Code(s): K21.9 - Gastro-esophageal reflux disease without esophagitis Status: Chronic Assessment and Plan: continue home medications (6) Morbid obesity with BMI of 45.0-49.9, adult: Code(s): E66.01 - Morbid (severe) obesity due to excess calories; Z68.42 - Body mass index [BMI] 45.0-49.9, adult Status: Chronic Assessment and Plan: lifestyle and diet modifications (7) Venous stasis ulcer: Code(s): I83.009 - Varicose veins of unspecified lower extremity with ulcer of unspecified site; L97.909 - Non-pressure chronic ulcer of unspecified part of unspecified lower leg with unspecified severity Status: Acute Assessment and Plan: compression stockings (8) Chronic diastolic (congestive) heart failure: Onset Date: Unknown Code(s): I50.32 - Chronic diastolic (congestive) heart failure Status: Chronic Assessment and Plan: appears to be euvolemic. (9) Obstructive sleep apnea: Onset Date: Unknown Code(s): G47.33 - Obstructive sleep apnea (adult) (pediatric) Status: Chronic Assessment and Plan: noncompliance with CPAP at nighttime (10) Chronic pain syndrome: Code(s): G89.4 - Chronic pain syndrome Status: Acute Assessment and Plan: Tylenol as needed (11) Closed fibular fracture: Qualifiers: Encounter type: initial encounter Fibula location: proximal Fracture morphology: other fracture Laterality: right Qualified Code(s): S82.831A - Other fracture of upper and lower end of right fibula, initial encounter for closed fracture Code(s): S82.409A - Unspecified fracture of shaft of unspecified fibula, initial encounter for closed fracture Status: Acute Assessment and Plan: appreciate Orthopedic consultation, continue knee immobilizer consult PT/OT / care coordination for discharge planning Plan DVT prophylaxis with SCDs GI prophylaxis not indicated Code status full code Subjective Date/time seen: 03/10/22 08:48 Interval history: Resting comfortably. No complaints, no CP, SOB, NVD. Review of Systems Review of Systems: 12 point review of systems was assessed and was negative except as noted in the HPI Exam Narrative: General: No acute distress, alert and oriented per baseline HEENT: Atraumatic, normocephalic, mucous membranes moist CV: Regular rate and rhythm, S1, S2 Lungs: Clear to auscultation bilaterally, no rales or crackles noted, no wheezes, good air entry Abdomen: Soft, nontender, nondistended Extremities: Normal to inspection, right lower extremity in brace Skin: No rashes noted, no lesions or wounds seen Psych: Euthymic, normal affect Objective Data Vital Signs Vital Signs: Vital Signs - 24 hr 03/09/22 11:32 03/09/22 16:0
[2022-03-10] MEDS: PANTOPRAZOLE 40 MG TABLET PO (08:49)
[2022-03-10] MEDS: OPTI-GEN TAB 1 TABLET PO ×2 (08:49→16:17)
[2022-03-10] MEDS: predniSONE 10 MG TABLET 30 MG PO (08:49)
[2022-03-10 08:56] LABS: Basophils Percent Auto 0.3 % (0.2-1.2); Eosinophils Absolute Auto 0.1 K/mm3 (0-0.3); Eosinophils Percent Auto 0.6 % (0-4.4); Hematocrit 28.4 % (37.0-47.0); Hemoglobin 8.4 g/dL (12.0-15.0); Immature Granulocyte Absolute 0.61 K/mm3 (0.00-0.031); Immature Granulocyte Percent A 5.9 % (0-0.5); Lymphocytes Absolute Auto 1.36 K/mm3 (0.9-3.2); Lymphocytes Percent Auto 13.2 % (18.3-44.2); Mean Corpuscular HGB Conc 29.6 g/dl (32-36); Mean Corpuscular Hemoglobin 25.8 pg (26-34); Mean Corpuscular Volume 87.4 fl (80-100); Mean Platelet Volume 9.8 fl (7.4-10.4); Monocytes Absolute Auto 1.5 K/mm3 (0.1-0.6); Monocytes Percent Auto 14.8 % (2.6-8.5); Neutrophils Absolute Auto 6.7 K/mm3 (1.3-6.7); Neutrophils Percent Auto 65.2 % (45.5-73.1); Platelet Count Result 425 k/mm3 (150-375); Red Blood Count 3.25 M/mm3 (4.2-5.4); Red Cell Distribution Width 15.3 % (11.5-14.5); White Blood Count 10.3 K/mm3 (4.5-10.0)
[2022-03-10 09:03] LABS: Alanine Aminotransferase 42 U/L (6-35); Alkaline Phosphatase 49 U/L (38-126); Anion Gap 5 mmol/L (8-16); Aspartate Amino Transferase 18 U/L (14-36); Bilirubin,Total 0.2 mg/dL (0.2-1.3); Blood Urea Nitrogen 23 mg/dL (7-17); Calcium 8.4 mg/dL (8.4-10.2); Carbon Dioxide 36 mmol/L (22-30); Chloride 90 mmol/L (98-107); Estimated CRCL calculation 78 ml/min; Estimated Glomerular Filt Rate > 60; Glucose 111 mg/dL (65-110); Potassium 4.4 mmol/L (3.4-5.0); Sodium 131 mmol/L (137-145)
[2022-03-10] MEDS: FLUTICASONE/SALMETEROL 115-21 MCG INHALER 1 PUFF 2 PUFF INHALATION ×2 (09:04→21:20)
[2022-03-10] MEDS: ALBUTEROL SULFATE NEB 2.5 MG/3 ML INH INHALATION ×2 (09:05→21:20)
[2022-03-10] MEDS: UMECLIDINIUM BROMIDE 62.5 MCG ELLIPTA 1 PUFF INHALATION (09:05)
[2022-03-10 09:46] LABS: Platelet Estimate Adequate (Adequate)
[2022-03-10 09:47] LABS: Anisocytosis 1+ (NORMAL); Hypochromasia 1+ (NORMAL); Ovalocytes 1+ (NORMAL)
[2022-03-10 10:58] LABS: Schistocytes None Seen (NORMAL)
[2022-03-10] MEDS: hydrOXYzine HCL 25 MG TABLET PO (11:23)
[2022-03-11] MEDS: oxyCODONE/ACETAMINOPHEN (*CRX) 10-325 MG TABLET 1 TAB PO ×2 (01:47→13:04)
[2022-03-11 02:35] VITALS: PULSE 98; O2SAT 84
[2022-03-11 05:50] VITALS: PULSE 80; RESP 15; O2SAT 99
[2022-03-11 06:47] LABS: Alanine Aminotransferase 43 U/L (6-35); Albumin Level 3.2 g/dL (3.5-5.1); Alkaline Phosphatase 56 U/L (38-126); Anion Gap 5 mmol/L (8-16); Aspartate Amino Transferase 21 U/L (14-36); Bilirubin,Total 0.4 mg/dL (0.2-1.3); Blood Urea Nitrogen 19 mg/dL (7-17); Calcium 8.6 mg/dL (8.4-10.2); Carbon Dioxide 39 mmol/L (22-30); Chloride 87 mmol/L (98-107); Estimated CRCL calculation 66 ml/min; Estimated Glomerular Filt Rate > 60; Glucose 84 mg/dL (65-110); Potassium 4.2 mmol/L (3.4-5.0); Sodium 131 mmol/L (137-145)
[2022-03-11 06:54] LABS: Basophils Absolute Auto 0.1 K/mm3 (0.0-0.1); Basophils Percent Auto 0.4 % (0.2-1.2); Eosinophils Absolute Auto 0.1 K/mm3 (0-0.3); Eosinophils Percent Auto 0.7 % (0-4.4); Hemoglobin 8.7 g/dL (12.0-15.0); Immature Granulocyte Absolute 0.79 K/mm3 (0.00-0.031); Immature Granulocyte Percent A 5.9 % (0-0.5); Lymphocytes Absolute Auto 1.77 K/mm3 (0.9-3.2); Lymphocytes Percent Auto 13.2 % (18.3-44.2); Mean Corpuscular Volume 86.8 fl (80-100); Mean Platelet Volume 9.8 fl (7.4-10.4); Monocytes Absolute Auto 1.9 K/mm3 (0.1-0.6); Monocytes Percent Auto 13.8 % (2.6-8.5); Neutrophils Absolute Auto 8.9 K/mm3 (1.3-6.7); Platelet Count Result 411 k/mm3 (150-375); Red Blood Count 3.34 M/mm3 (4.2-5.4); Red Cell Distribution Width 15.3 % (11.5-14.5); White Blood Count 13.5 K/mm3 (4.5-10.0)
[2022-03-11 07:42] VITALS: BP 145/65; PULSE 80; RESP 16; TEMP 36.3; O2SAT 100
[2022-03-11] MEDS: FLUTICASONE/SALMETEROL 115-21 MCG INHALER 1 PUFF 2 PUFF INHALATION (08:11)
[2022-03-11] MEDS: ALBUTEROL SULFATE NEB 2.5 MG/3 ML INH INHALATION (08:11)
[2022-03-11 08:14] VITALS: PULSE 82; RESP 16
[2022-03-11 08:28] LABS: Anisocytosis 1+ (NORMAL); Basophilic Stippling 1+ (NORMAL); Hypochromasia 1+ (NORMAL); Ovalocytes 1+ (NORMAL); Platelet Estimate Increased (Adequate); Poikilocytosis 1+ (NORMAL)
[2022-03-11 08:44] LABS: Schistocytes 1+ (NORMAL)
--- NOTE | 2022-03-11 08:49 | PM.DS ---
DS: Admitting Diagnosis Discharge Date March 11, 2022 Admitting Diagnosis Shortness of breath DS: Discharge Diagnosis Discharge Diagnosis (1) HCAP (healthcare-associated pneumonia): Code(s): J18.9 - Pneumonia, unspecified organism Status: Acute Assessment and Plan: do not suspect pneumonia, will discontinue antibiotics and observe off antibiotics tomorrow (2) Physical deconditioning: Code(s): R53.81 - Other malaise Status: Acute Assessment and Plan: secondary to chronic illness (3) Acute on chronic respiratory failure with hypoxia and hypercapnia: Code(s): J96.21 - Acute and chronic respiratory failure with hypoxia; J96.22 - Acute and chronic respiratory failure with hypercapnia Status: Acute Assessment and Plan: currently on BiPAP at night oxygen during the day (4) COPD (chronic obstructive pulmonary disease): Code(s): J44.9 - Chronic obstructive pulmonary disease, unspecified Status: Acute Assessment and Plan: continue prednisone, stable (5) GERD (gastroesophageal reflux disease): Qualifiers: Esophagitis presence: without esophagitis Qualified Code(s): K21.9 - Gastro-esophageal reflux disease without esophagitis Code(s): K21.9 - Gastro-esophageal reflux disease without esophagitis Status: Chronic Assessment and Plan: continue home medications (6) Morbid obesity with BMI of 45.0-49.9, adult: Code(s): E66.01 - Morbid (severe) obesity due to excess calories; Z68.42 - Body mass index [BMI] 45.0-49.9, adult Status: Chronic Assessment and Plan: lifestyle and diet modifications (7) Venous stasis ulcer: Code(s): I83.009 - Varicose veins of unspecified lower extremity with ulcer of unspecified site; L97.909 - Non-pressure chronic ulcer of unspecified part of unspecified lower leg with unspecified severity Status: Acute Assessment and Plan: compression stockings (8) Chronic diastolic (congestive) heart failure: Onset Date: Unknown Code(s): I50.32 - Chronic diastolic (congestive) heart failure Status: Chronic Assessment and Plan: appears to be euvolemic. (9) Obstructive sleep apnea: Onset Date: Unknown Code(s): G47.33 - Obstructive sleep apnea (adult) (pediatric) Status: Chronic Assessment and Plan: noncompliance with CPAP at nighttime (10) Chronic pain syndrome: Code(s): G89.4 - Chronic pain syndrome Status: Acute Assessment and Plan: Tylenol as needed (11) Closed fibular fracture: Qualifiers: Encounter type: initial encounter Fibula location: proximal Fracture morphology: other fracture Laterality: right Qualified Code(s): S82.831A - Other fracture of upper and lower end of right fibula, initial encounter for closed fracture Code(s): S82.409A - Unspecified fracture of shaft of unspecified fibula, initial encounter for closed fracture Status: Acute Assessment and Plan: appreciate Orthopedic consultation, continue knee immobilizer consult PT/OT / care coordination for discharge planning Plan DVT prophylaxis with SCDs GI prophylaxis not indicated Code status full code DS: Summary Hospital Course Hospital Course: 81-year-old female with past medical history significant for chronic hypoxic hypercarbic respiratory failure on supplemental oxygen at home, COPD/emphysema, aortic stenosis, diastolic heart failure, chronic pain syndrome, chronic hyponatremia, gastroesophageal reflux disease, patient just discharged from the hospital? was treated for lung infiltrates however patient returns today due to worsening shortness of breath.? At the time of my visit patient is on BiPAP unable to provide any history has been mainly obtained upon reviewing medical records. Patient's symptoms remained unchanged despite IV antibiotics. Upon reviewing imaging, do not suspect acute
[2022-03-11] MEDS: ACETAMINOPHEN 325 MG TABLET 650 MG PO (08:51)
[2022-03-11] MEDS: FERROUS SULFATE 324 MG TABLET PO (11:01)
[2022-03-11] MEDS: OPTI-GEN TAB 1 TABLET PO (11:01)
[2022-03-11] MEDS: amLODIPine BESYLATE 5 MG TABLET PO (11:01)
[2022-03-11] MEDS: PANTOPRAZOLE 40 MG TABLET PO (11:01)
[2022-03-11 11:38] LABS: EDCOVIDSCREEN Negative (Negative)
[2022-03-11] MEDS: predniSONE 10 MG TABLET 30 MG PO (13:04)
== END 2022-03-11 13:40 | DRG 193 ==
LOC: ANHED 03-07 01:01 → ANHIMU 03-07 01:36 → ANH3MEDSUR 03-10 17:40
PROVIDERS: Chiropractor; Admitting Provider Internal Medicine; Emergency Provider Emergency Medicine; PCP Family Medicine; Visit Provider Student in an Organized Health Care Education/Training Program
DX: J18.9 Pneumonia, unspecified organism (principal); J96.21 Acute and chronic respiratory failure with hypoxia; J96.22 Acute and chronic respiratory failure with hypercapnia; I50.32 Chronic diastolic (congestive) heart failure; E87.1 Hypo-osmolality and hyponatremia; K51.90 Ulcerative colitis, unspecified, without complications; J44.0 Chronic obstructive pulmonary disease with (acute) lower respiratory infection; Z68.42 Body mass index [BMI] 45.0-49.9, adult; S82.831A Other fracture of upper and lower end of right fibula, initial encounter for closed fracture; I11.0 Hypertensive heart disease with heart failure; I35.0 Nonrheumatic aortic (valve) stenosis; I87.2 Venous insufficiency (chronic) (peripheral); E04.1 Nontoxic single thyroid nodule; E55.9 Vitamin D deficiency, unspecified; K21.9 Gastro-esophageal reflux disease without esophagitis; L97.519 Non-pressure chronic ulcer of other part of right foot with unspecified severity; M54.9 Dorsalgia, unspecified; M75.01 Adhesive capsulitis of right shoulder; M25.512 Pain in left shoulder; M25.562 Pain in left knee; G89.29 Other chronic pain; Y95 Nosocomial condition; Z20.822 Contact with and (suspected) exposure to COVID-19; G47.33 Obstructive sleep apnea (adult) (pediatric); R53.81 Other malaise; R16.0 Hepatomegaly, not elsewhere classified; R73.03 Prediabetes; E66.01 Morbid (severe) obesity due to excess calories; H26.9 Unspecified cataract; F32.A Depression, unspecified; X58.XXXA Exposure to other specified factors, initial encounter; Z96.651 Presence of right artificial knee joint; Z99.81 Dependence on supplemental oxygen; Z87.891 Personal history of nicotine dependence
CPT/HCPCS: 36415; 36600; 51702; 71045; 73560; 80048; 80053; 80202; 81001; 82565; 82803; 82805; 82948; 83605; 83690; 83735; 83880; 84484; 85025; 85380; 85610; 85730; 87040; 87426; 87502; 93005; 94002; 94003; 94640; 96365; 96367; 96375; 97161; 97166; 99291; A9270; C9803; J0692; J2930; J3370; J7512; U0003; U0005